=== PATIENT | male | born 1950 | race Hispanic/Latino ===

== ENCOUNTER → 2022-11-21 | Outpatient (CLI) | payer SELFPAY ==
[2022-11-21 17:51] LABS: Absolute Lymphocyte Count 2.26 X10^3/uL (0.83-4.51); Absolute Neutrophil Count 4.9 X10^3/uL (2.0-7.7); Basophil# 0.05 X10^3/uL; Basophil% 0.6 % (0-1); Eosinophil# 0.38 X10^3/uL; Eosinophils% 4.7 % (0-5); Hematocrit 39.5 % (40-54); Hemoglobin 13.1 g/dL (13.0-16.5); Lymphocyte # 2.26 X10^3/ul (0.83-4.51); Lymphocyte % 27.7 % (19-41); Mean Corp Hgb Conc 33.2 g/dL (32-36); Mean Corpuscular Hgb 27.9 pg (27.0-32.0); Mean Corpuscular Volume 84.2 fL (80-94); Monocyte# 0.52 X10^3/uL; Monocyte% 6.4 % (0-10); NRBC Flagged by Analyzer 0 % (0-5); Neutrophil # 4.92 X10^3/uL (2.7-7.7); Neutrophil % 60.1 % (47-70); Platelet Count 255 K/mm3 (150-450); RBC Distribution Width CV 12.6 % (11.6-14.6); RBC Distribution Width SD 38.3 fl (35.1-43.9); Red Blood Count 4.69 M/mm3 (4.6-6.2); White Blood Count 8.2 K/mm3 (4.4-11.0)
[2022-11-21 18:22] LABS: ALB/GLOB Ratio 0.8 RATIO (0.9-2.4); AST(SGOT) 20 U/L (15-37); Alanine Aminotransfer ALT/SGPT 40 U/L (16-61); Albumin, Serum 3.6 g/dL (3.2-5.0); Alkaline Phosphatase 136 U/L (45-117); Anion Gap 9 (5-15); BUN 76 mg/dL (7-18); BUN/Creat Ratio 13.1 RATIO (10-20); Calcium,Total 9.5 mg/dL (8.5-10.1); Chloride 104 mmol/L (98-107); Creatinine, Serum 5.81 mg/dL (0.70-1.30); EST Glomerular Filtration Rate 10 mL/min (>60); Est Glom Filt Rate - Afr Amer 13 mL/min (>60); Globulin 4.5 g/dL (2.2-4.2); Glucose 189 mg/dL (74-106); Potassium 4.8 mmol/L (3.5-5.1); Protein, Total 8.1 g/dL (6.4-8.2); Sodium Level 134 mmol/L (136-145); Thyroid Stim Hormone (TSH) 0.75 uIU/mL (0.358-3.74)
[2022-11-21 18:59] LABS: Hepatitis C Antibody Non-Reactive (Nonreactive); Vitamin D,25 Hydroxy 32.5 ng/mL
== END | disposition home or self-care (01) ==
LOC: POLAB3 15:44
PROVIDERS: Visit Provider Family Medicine Geriatric Medicine
DX: I12.9 Hypertensive chronic kidney disease with stage 1 through stage 4 chronic kidney disease, or unspecified chronic kidney disease (principal); E11.22 Type 2 diabetes mellitus with diabetic chronic kidney disease; E11.65 Type 2 diabetes mellitus with hyperglycemia; N18.9 Chronic kidney disease, unspecified
CPT/HCPCS: 36415; 80053; 82306; 84443; 85025; 86803

== ENCOUNTER → 2023-09-04 | Outpatient (CLI) | payer BC, SELFPAY ==
[2023-09-04 12:07] LABS: Basophil# 0.07 X10^3/uL; Basophil% 0.9 % (0-1); Eosinophil# 0.31 X10^3/uL; Eosinophils% 3.8 % (0-5); Hematocrit 35.2 % (40-54); Hemoglobin 11.7 g/dL (13.0-16.5); Lymphocyte % 25.8 % (19-41); Mean Corp Hgb Conc 33.2 g/dL (32-36); Mean Corpuscular Hgb 30.5 pg (27.0-32.0); Mean Corpuscular Volume 91.7 fL (80-94); Mean Platelet Vol. 8.9 fl (6.2-12.0); Monocyte# 0.67 X10^3/uL; Monocyte% 8.2 % (0-10); NRBC Flagged by Analyzer 0 % (0-5); Neutrophil # 4.95 X10^3/uL (2.7-7.7); Neutrophil % 60.9 % (47-70); Platelet Count 221 K/mm3 (150-450); RBC Distribution Width CV 11.7 % (11.6-14.6); RBC Distribution Width SD 39.2 fl (35.1-43.9); Red Blood Count 3.84 M/mm3 (4.6-6.2); White Blood Count 8.1 K/mm3 (4.4-11.0)
[2023-09-04 15:55] LABS: ALB/GLOB Ratio 0.9 RATIO (0.9-2.4); AST(SGOT) 17 U/L (15-37); Alanine Aminotransfer ALT/SGPT 25 U/L (16-61); Albumin, Serum 3.7 g/dL (3.2-5.0); Alkaline Phosphatase 80 U/L (45-117); Anion Gap 6 (5-15); BUN 49 mg/dL (7-18); BUN/Creat Ratio 4.5 RATIO (10-20); Chloride 100 mmol/L (98-107); EST Glomerular Filtration Rate 5 mL/min (>60); Est Glom Filt Rate - Afr Amer 6 mL/min (>60); Glucose 95 mg/dL (74-106); Potassium 4.4 mmol/L (3.5-5.1); Protein, Total 7.7 g/dL (6.4-8.2); Sodium Level 137 mmol/L (136-145); Thyroid Stim Hormone (TSH) 0.97 uIU/mL (0.358-3.74)
== END | disposition home or self-care (01) ==
LOC: POLAB3 11:28
PROVIDERS: PCP Family Medicine Geriatric Medicine; Visit Provider Family Medicine Geriatric Medicine
DX: I10 Essential (primary) hypertension (principal); E11.65 Type 2 diabetes mellitus with hyperglycemia; E55.9 Vitamin D deficiency, unspecified
CPT/HCPCS: 36415; 80053; 82306; 84443; 85025

== ENCOUNTER 2023-11-19 07:21 | Day surgery (SDC) | payer BC, SELFPAY ==
[2023-11-19] VITALS (7 sets, daily range): BP systolic 83–152; BP diastolic 49–60; PULSE 64–77; RESP 16; TEMP 36.2; O2SAT 96–99; BMI 22.1
--- NOTE | 2023-11-19 | COLBX_PTH ---
PATIENT: NOÉ PINO LOC: [facility] U#:[id number] AGE/SX: 73/M ROOM: RE11/19/[address]: Dr. Tobias Ryan MD : 1950 BED: DIS: 11/19/2023 SPEC #: [id number] RECD: 11/19/23 12:59 STATUS: JENNIFER MAZARIEGOSNena #: [id number] APOLINAR: 11/19/23 00:[address]: Tobias Ryan DEPT: SURGICAL PATHOLOGY RECD BY: Adam Walker ENTERED: 11/19/23 13:00 SP TYPE: COLON BX OTHR DR: Dr. Allen Jackson MD Tissues: A - Rectum, NOS B - Ascending colon C - Transverse colon D - Transverse colon E - Sigmoid colon biopsy F - Sigmoid colon biopsy Procedures: Surgery Specimen Level IV HEADER OPERATION: Colonoscopy with polypectomies and biopsy PRE-OP DIAGNOSIS: Positive colorectal cancer screening using Cologuard test TISSUE SUBMITTED: A- rectum polyp, B- Ascending colon polyp, C- Transverse colon polyp, D- Transverse colon polyp biopsy #2, E- Sigmoid colon polyp, F- Sigmoid colon polyp #2 MICROSCOPIC DIAGNOSIS A. Rectum polyp, biopsy: Tubular adenoma. B. Ascending colon polyp, biopsy: Fragments of hyperplastic polyp with cautery artifact. Fecal debris. C. Transverse colon polyp, biopsy: Tubular adenoma. D. Transverse colon polyp #2, biopsy: Benign mucosal polyp. See comment. E. Sigmoid colon polyp, biopsy: Tubular adenoma. F. Sigmoid colon polyp #2, biopsy: Tubular adenoma. AM/ 11/20/2023 COMMENT D. Neither hyperplastic nor adenomatous change is identified. Clinical correlation is suggested. MICROSCOPIC DESCRIPTION Slides are reviewed. GROSS DESCRIPTION A. Received in fixative is one container labeled with the patient's name and designated Rectal polyp. The specimen consists of a pink-red polyp measuring 1.0 x 0.8 x 0.5 cm. A few fragments of fecal material are also noted. The presumed base is inked. The polyp is bisected and submitted entirely in one cassette. B. Received in fixative is one container labeled with the patient's name and designated Ascending colon polyp. The specimen consists of multiple fragments mixed with fecal material of light stauffer soft tissue that in aggregate measure 1.0 x 0.4 x 0.1 cm. The specimen is totally submitted in one cassette. C. Received in fixative is one container labeled with the patient's name and designated Transverse colon polyp. The specimen consists of two irregular fragments of light stauffer soft tissue that in aggregate measure 0.4 x 0.3 x 0.1 cm. The specimen is totally submitted in one cassette. D. Received in fixative is one container labeled with the patient's name and designated Transverse colon polyp #2. The specimen consists of one irregular fragment of light stauffer soft tissue that measures 0.2 x 0.1 x 0.1 cm. The specimen is totally submitted in one cassette. E. Received in fixative is one container labeled with the patient's name and designated Sigmoid colon polyp. The specimen consists of a stauffer-pink polyp measuring 0.3 x 0.3 x 0.1cm. The entire specimen is submitted in one cassette. F. Received in fixative is one container labeled with the patient's name and designated Sigmoid colon polyp #2. The specimen consists of a stauffer-pink polyp measuring 0.5 x 0.5 x 0.2cm. The entire specimen is submitted in one cassette. Padmini 11/19/2023 TC:5 CPT:57053t6
--- NOTE | 2023-11-19 07:59 | PRE.ANES_ITS ---
ASA Classification* ASA Classification ASA Classification: 3 Assessment & Plan Anesthesia* Anesthesia Assessment Anesthesia Assessment: Discussed sedation and/or anesthesia options, risks, benefits, and alternatives with patient/parents/legal guardian/POA. Questions invited. The patient/parents/legal guardian/POA seems to understand and agrees to proceed with anesthesia plan. Reviewed the physical assessment, medical history, allergy history and patient home medications list prior to surgery/procedure/anesthetic and documented any changes. Performed airway and anesthesia risk assessments. Anesthesia Type Anesthesia Type: MAC (see written pre anesthesia record for full assessment ) Anesthesia Focused Assessment* Airway Assessment Mouth opens: >3 cm Mallampati Score: II Focused Labs Anesthesia Preop lab: CBC WBC 8.1 K/mm3 (4.4-11.0) 09/04/23 11:29 RBC 3.84 M/mm3 (4.6-6.2) L 09/04/23 11:29 Hgb 11.7 g/dL (13.0-16.5) L 09/04/23 11:29 Hct 35.2 % (40-54) L 09/04/23 11:29 Plt Count 221 K/mm3 (150-450) 09/04/23 11:29 CHEMISTRY Potassium 4.4 mmol/L (3.5-5.1) 09/04/23 11:29 Sodium 137 mmol/L (136-145) 09/04/23 11:29 BUN 49 mg/dL (7-18) H 09/04/23 11:29 Creatinine 11.00 mg/dL (0.70-1.30) H* 09/04/23 11:29 Glucose 95 mg/dL (74-106) 09/04/23 11:29 TSH 0.97 uIU/mL (0.358-3.74) 09/04/23 11:29 COAG Pre-Assessment Diagnosis/Proposed Procedure Planned Operative Procedure(s): CSCOPE Anesthesia History Anesthesia History - boiling house hand: Anesthesia History - boiling house hand Hx Hospitalization No 11/15/23 11:18 Any Problems With Anesthesia Yes: N,V 11/15/23 11:18 Cholinesterase deficiency No 11/15/23 11:18 You/Your Family Experience No 11/15/23 11:18 fever (hyperthermia) with Relationship Recent Exposure to Contagious Disease Does patient have nerve No 11/15/23 11:18 stimulator Patient instructed to have device shut off --Does patient have Pacemaker or ICD? When Was Last Pacemaker Check QUESTION #4 FULL TEXT: You/Your Family Experience fever (hyperthermia) with Anesthesia Last Oral Intake Last Oral intake: Last Oral Intake NPO since Meds taken in AM with sips of water? Meds patient instructed to take am of surgery PONV PONV - boiling house hand: PONV - boiling house hand Female No 11/15/23 11:18 HX of Motion Sickness No 11/15/23 11:18 HX of N/V After Surgery Yes 11/15/23 11:18 Non-Smoker Yes 11/15/23 11:18 Duration of Surgery greater No 11/15/23 11:18 than 60 minutes Number of Risk Factors 2 11/15/23 11:18 PONV Score Moderate Risk 11/15/23 11:18 Height & Weight Height & Weight: Anesthesia: Height & Weight Height 5 ft 5 in 10/04/23 09:48 Respiratory Assessment Respiratory Assessment - boiling house hand: Respiratory Tract Infection Hx - boiling house hand Hx Respiratory Tract Infection No 11/15/23 11:18 STOP Sleep Apnea STOP Sleep Apnea - boiling house hand: STOP Sleep Apnea - boiling house hand Hx Hypertension Yes: CONTROLLED WITH MED 11/15/23 11:18 Hx Sleep Apnea No 11/15/23 11:18 CPAP BIPAP Do you snore loudly (louder No 11/15/23 11:18 than talking or can be heard Do you often feel tired/ No 11/15/23 11:18 fatigued/ sleepy during daytime? Has anyone observed you stop No 11/15/23 11:18 breathing during sleep? STOP Results Negative 11/15/23 11:18 QUESTION #5 FULL TEXT : Do you snore loudly (louder than talking or can be heard through closed doors)? 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 Specify any problems Hx of Preganancy in last 3 N/A 11/15/23 11:18 Months Nurse Filling Out Transfusion DSCHRIBER 11/15/23 11:18 & Questions: Date: 11/15/23 11/15/23 11:18 Time: 11:20 11/15/23 11:18 Patient unable to answer at this time (ie. confused, unrespo /Reproduction History /Reproductive History - boiling house hand: /Reproductive Hx- boiling house hand Hx Now No 11/15/23 11:18 Gestational Age (in weeks): EDC: Hx Hx Para Hx Section SAB No 11/15/23 11:18 Active Medications Active Medications: Current Medications Generic Name Dose Route Start Last Admin Trade Name Freq PRN Reason Stop Dose Admin Lactated Ringer's 1,000 mls @ 15 mls/hr 11/19/23 07:45 IV .Q48H TYRESE PFSH Medical History Wears glasses Insulin dependent diabetes mellitus Anemia High cholesterol Dietary restriction Gastric reflux Non-smoker Hypertension History of peritoneal dialysis End stage chronic kidney disease Positive colorectal cancer screening using Cologuard test Home Medications ?Medication ?Instructions ?Recorded ?Last Taken ?Type atorvastatin 20 mg tablet 20 mg PO DAILY 10/04/23 Unknown History calcitriol 0.25 mcg capsule 0.25 mcg PO DAILY 10/04/23 Unknown History felodipine 10 mg tablet,extended 10 mg PO QDAY 10/04/23 Unknown History release 24 hr furosemide 40 mg tablet 40 mg PO DAILY 10/04/23 Unknown History insulin glargine 100 unit/mL (3 25 unit subcut QAM 10/04/23 Unknown History mL) subcutaneous pen (Lantus Solostar U-100 Insulin) pantoprazole 40 mg tablet,delayed 40 mg PO DAILY 10/04/23 Unknown History release sevelamer carbonate 800 mg tablet 1,600 mg PO TID 10/04/23 Unknown History vitamin B complex and vitamin C 1 cap PO DAILY 10/04/23 Unknown History no.20-folic acid 1 mg capsule (Triphrocaps) Allergy/AdvReac Type Severity Reaction Status Date / Time No Known Allergies Allergy Verified 11/19/23 07:58 Family History (Updated 10/04/23 @ 09:52 by Venessa Meza) Brother Diabetes Father Diabetes Surgical History History of cataract surgery Social History (Updated 10/04/23 @ 09:53 by Venessa Meza) Smoking Status: Never smoker alcohol intake: never substance use type: does not use Review of Systems (Anesthesia) ROS Narrative System reviewed and no additional complaints, except as documented.
[2023-11-19] MEDS: Lactated Ringers 1,000 ML 15 ML IV (08:06)
[2023-11-19] MEDS: 0.9% Normal Saline (500mL Bag) 500 ML 15 ML IV (08:11)
[2023-11-19 08:38] LABS: Bedside Glucose 109 mg/dL (74-106)
--- NOTE | 2023-11-19 09:45 | HP.PCM_ITS ---
History and Physical Date of Admission: 11/19/23 Date of Service: 10/04/23 MR#: [id number] Acct: [id number] Name: NOÉ HUGHES Rep #: [id number] : 1950 Provider: Dr. Tobias Ryan MD Age/Sex: 72/M Location: [facility] Status: Signed Intake Vital Signs 10/03/2408:48 Height 5 ft 5 in Weight: 139 lb 6 oz BMI 23.1 Body Surface Area 97.5 BP 109/66 Blood Pressure Location Rt brachial Position Sitting Respiration 18 Pulse 73 Pulse Source Monitor Temp 97.5 F L Temp Source Temporal Pulse Oximetry (%) 100 Oxygen Delivery Method room air Intake Visit Reasons: POSITIVE COLOGUARD Chief Complaint: Positive cologuard Private Client Advisor Required: No Accompanied by: Unknown Is patient in pain?: No Allergies No Known Allergies Allergy (Unverified 10/04/23 09:58) Medications ?Medication ?Instructions ?Recorded ?Confirmed ?Type atorvastatin 20 mg tablet 20 mg PO DAILY 10/04/23 10/04/23 History calcitriol 0.25 mcg capsule mcg PO 10/04/23 10/04/23 History felodipine 10 mg tablet,extended 10 mg PO QDAY 10/04/23 10/04/23 History release 24 hr furosemide 40 mg tablet 40 mg PO DAILY 10/04/23 10/04/23 History insulin glargine 100 unit/mL (3 25 unit subcut QAM 10/04/23 10/04/23 History mL) subcutaneous pen (Lantus Solostar U-100 Insulin) pantoprazole 40 mg tablet,delayed 40 mg PO DAILY 10/04/23 10/04/23 History release sevelamer carbonate 800 mg tablet 1,600 mg PO TID 10/04/23 10/04/23 History vitamin B complex and vitamin C 1 cap PO DAILY 10/04/23 10/04/23 History no.20-folic acid 1 mg capsule (Triphrocaps) [facility] Medical History (Updated 10/05/23 @ 10:[address] Tobias Ryan MD) History of peritoneal dialysis End stage chronic kidney disease Positive colorectal cancer screening using Cologuard test Surgical History (Updated 10/04/23 @ 09:52 by Venessa Meza) History of cataract surgery Family History (Updated 10/04/23 @ 09:52 by Venessa Meza) Brother DiabetesFather Diabetes Social History (Updated 10/04/23 @ 09:53 by Venessa Meza) Smoking Status: Never smoker alcohol intake: never substance use type: does not use HPI HPI HPI: Patient is a 72-year-old male, who is Turkish?speaking only from the [place] who presents for need to schedule diagnostic colonoscopy secondary to positive Cologuard testing. They are referred for surgical consultation from Dr. Jackson. Patient presents today with his son's longtime girlfriend who provides interpretive services. Angeline Hughes has not noticed any gross bleeding. Patient has not had prior colonoscopy. Patient has a personal history of constipation. They describe their bowel habits as beginning with rabbit pellets but transitioning to normal?appearing stools throughout the day. He shares that it is always like this. They have approximately 2 bowel movements per day without significant straining. They have not noticed dark stools, but do have a history of requiring iron pills for anemia. Patient reports that he did require a blood transfusion around the time of his peritoneal dialysis catheter insertion 2 years ago when he was still living in the [place]. They do not regularly take fiber supplements. Patient has a family history of colon cancer, inflammatory bowel disease, or diverticulitis. The patient's weight is stable. The patient is not prescribed anticoagulants/blood thinners. Relevant prior abdominal surgical history includes: Peritoneal dialysis catheter mentioned above Patient does not have a significant history of GERD/heartburn ROS General General: No weight change, appetite, fatigue, colon cancer, breast cancer or weakness HEENT HEENT: Yes eye surgery; No difficulty swallowing, eye injury, swollen glands or hoarseness Endo Endocrine: Yes diabetes mellitus; No thyroid disease, thyroid cancer, Hair loss, heat intolerance or cold intolerance Skin Skin: No rash or changing moles Breast Breast: No left breast lump, right breast lump, nipple discharge, breast pain, abnormal mammogram, abnormal US or breast enlargement Musc Musculoskeletal: No back problems, arthritis, rheumatoid arthritis, gout or joint pain Cardio Cardiovascular: No murmur, pacemaker, heart disease, atrial fibrillation, high blood pressure, heart attack, heart stent, palpitations, shortness of breat with exertion or chest pain Psych Psychiatric: No depression, anxiety or hearing voices Resp Respiratory: No shortness of breath, No sleep apnea, No cough, No COPD, No asthma, No emphysema and No wheezing Gastro Gastrointestinal: No abdominal pain, No nausea or vomiting, No diarrhea, No constipation, No blood in stool, No acid reflux, No hemorrhoids, No ulcers, No gallbladder problem and No black,tarry stools Raj Hematologic: No blood thinners, No blood disorders, No bleeding, No anemia and No blood clots Neuro Neurologic: No system reviewed and no additional complaints, except as documente d, No as per HPI, No abnormal gait, No abnormal hearing, No abnormal movements, No abnormal speech, No behavioral changes, No burning sensations, No confusion, No convulsions, No disequilibrium, No dizziness, No localized weakness, No frequent falls, No headache(s), No lack of coordination, No loss of vision, No memory loss, No numbness, No other visual disturbances, No radicular pain, No restless legs, No sensory deficit, No syncope, No tingling, No tremor(s), No weakness and No other Exam Const General: cooperative, healthy appearing and comfortable Resp Effort & Inspection: normal respiratory effort GI Other: Slender nondistended, left-sided peritoneal dialysis catheter appears appropriate without signs of infection. Patient nontender to palpation x 4 quadrants Assessment and Plan Assessment and Plan (1) Positive colorectal cancer screening using Cologuard test: Status: Acute Comment: Patient is a 72-year-old male who presents following positive Cologuard testing but without overt signs of gastrointestinal bleeding. Moreover, there is a history of iron deficiency anemia that has never been followed by endoscopic evaluation. Based on these features of patient's history and his reports of constipation, I find compelling reason to recommend diagnostic colonoscopy. Patient's son's girlfriend expresses concern about his risk for cancer and I have taken time to lay out the significance of his findings to date. For his part, patient does not appear in any distress and expresses comfort with the recommendation. 2-day bowel prep was described alongside other instructions for the procedure. Plan: Plan will be to complete colonoscopy on first mutually agreeable date under local MAC. Pre-procedure prep discussed and paper instructions provided. Ld streeter is also made aware that he will need to have a long haul truck driver with him the day of the procedure. I have examined the patient and the H&P has been reviewed. There are no clinical changes since date of exam. Patient's son's longtime girlfriend again accompanies him and provides interpretive services. Together they confirm that he has completed a prep and his output is now clear. They deny any interval GI issues or health?related issues more broadly. Patient's exam is benign. No further questions are offered so we will plan to proceed to endoscopy suite for diagnostic colonoscopy given recently positive Cologuard testing.
--- NOTE | 2023-11-19 10:27 | PCM.POST.ANE ---
Anesthesia: Postop Eval I Current Vital Signs Temperature: 97.1 F Pulse Rate: 67 Blood Pressure: 86/57 Respiratory Rate: 16 Pulse Ox: 96 Oxygen Delivery Method: Room Air Assessment Airway patent: Yes Spontaneous unlabored respirations: Yes Mental status: Asleep nausea: No Vomiting: No Anesthesia Complication: No Fluid Hydration Crystalloid volume administer (ml): 250 Total IV fluid infused: 250 Progress Note Anesthesia document: Postop Eval 1 completed: Yes
--- NOTE | 2023-11-19 10:27 | OP.CCLET_ITS ---
11/19/2023 Allen Jackson MD [address] [place] [address] Re : Colonoscopy procedure for Skip Herndon Dear Dr. Jackson This procedure was performed on Sunday, November 19, 2023. My impressions and recommendations are as follows: Impressions : - Five 5 to 12 mm polyps in the rectum, in the sigmoid colon, in the transverse colon and in the ascending colon, removed with a hot snare. Resected and retrieved. - One 3 mm polyp in the sigmoid colon. Biopsied. - Non-bleeding internal hemorrhoids. No specimens collected. - The examination was otherwise normal. Recommendations : - Discharge patient to home (via wheelchair). - Resume previous diet today. - No aspirin, ibuprofen, naproxen, or other non-steroidal anti-inflammatory drugs for 2 days after polyp removal. - Await pathology results. - Repeat colonoscopy date to be determined after pending pathology results are reviewed for surveillance based on pathology results. - Telephone my office for pathology results in 1 week. My findings are described in the full procedure note, which is enclosed. If I can be of further assistance, please feel free to contact me at Doctor phone number(s): , Work: . Sincerely, Tobias Ryan MD 11/19/2023 10:27:07 AM This report has been signed electronically.
--- NOTE | 2023-11-19 10:27 | OP.COLON_ITS ---
Patient Name: Skip Herndon Procedure Date: 11/19/2023 9:43 AM Date of : 1950 Age: 73 Procedure: Colonoscopy Indications: Positive Cologuard test Providers: Tobias Ryan MD Referring MD: Allen Jackson MD Medicines: See the Anesthesia note for documentation of the administered medications Patient Profile: Last Colonoscopy: none. The patient's first colonoscopy is today. Complications: No immediate complications. Estimated blood loss: Minimal. Procedure: Pre-Anesthesia Assessment: - The heart rate, respiratory rate, oxygen saturations, blood pressure, adequacy of pulmonary ventilation, and response to care were monitored throughout the procedure. After I obtained informed consent, the scope was passed under direct vision. Throughout the procedure, the patient's blood pressure, pulse, and oxygen saturations were monitored continuously. The Colonoscope was introduced through the anus and advanced to the cecum, identified by the appendiceal orifice, ileocecal valve and palpation. The colonoscopy was performed without difficulty. The patient tolerated the procedure well. The quality of the bowel preparation was good. Scope In: 9:54:25 AM Scope Withdrawal Time 0 hours 14 minutes 52 seconds Scope Out: 10:18:04 AM Total Procedure Duration Time 0 hours 23 minutes 39 seconds Findings: Enlarged prostate, Estimated blood loss: none. Five semi-pedunculated polyps were found in the rectum, sigmoid colon, transverse colon and ascending colon. The polyps were 5 to 12 mm in size. These polyps were removed with a hot snare. Resection and retrieval were complete. Estimated blood loss was minimal. A 3 mm polyp was found in the sigmoid colon. The polyp was sessile. Biopsies were taken with a cold forceps for histology. Estimated blood loss was minimal. Non-bleeding internal hemorrhoids were found during retroflexion. The hemorrhoids were mild, medium-sized and Grade I (internal hemorrhoids that do not prolapse). No biopsies or other specimens were collected for this exam. The exam was otherwise without abnormality. Impression: - Five 5 to 12 mm polyps in the rectum, in the sigmoid colon, in the transverse colon and in the ascending colon, removed with a hot snare. Resected and retrieved. - One 3 mm polyp in the sigmoid colon. Biopsied. - Non-bleeding internal hemorrhoids. No specimens collected. - The examination was otherwise normal. Recommendation: - Discharge patient to home (via wheelchair). - Resume previous diet today. - No aspirin, ibuprofen, naproxen, or other non-steroidal anti-inflammatory drugs for 2 days after polyp removal. - Await pathology results. - Repeat colonoscopy date to be determined after pending pathology results are reviewed for surveillance based on pathology results. - Telephone my office for pathology results in 1 week. Procedure Code(s): --- Professional --- 72872, Colonoscopy, flexible; with removal of tumor(s), polyp(s), or other lesion(s) by snare technique 49434, 59, Colonoscopy, flexible; with biopsy, single or multiple Diagnosis Code(s): --- Professional --- D12.8, Benign neoplasm of rectum D12.5, Benign neoplasm of sigmoid colon D12.3, Benign neoplasm of transverse colon (hepatic flexure or splenic flexure) D12.2, Benign neoplasm of ascending colon K64.0, First degree hemorrhoids R19.5, Other fecal abnormalities CPT copyright 2021 [employer]. All rights reserved. The codes documented in this report are preliminary and upon senior software quality analyst review may be revised to meet current compliance requirements. Tobias Ryan MD 11/19/2023 10:27:07 AM This report has been signed electronically. Number of Addenda: 0 Note Initiated On: 11/19/2023 9:43 AM
--- NOTE | 2023-11-19 11:01 | SUR.PHASEII ---
patient is Upper Sorbian speaking, family at bedside to translate. all questions answered. patient vss. denies pain or nausea.
--- NOTE | 2023-11-19 16:52 | PCM.POSTANE2 ---
Anesthesia Postop Eval I Sum Postop Eval Completion status Anesthesia document: Postop Eval 1 completed: Yes Anesthesia Postop Eval I Summary Anesthesia Postop Eval I Summary: Anesthesia Postop Eval I: Assessment Summary Airway patent Yes 11/19/23 10:30 [email or web address] Spontaneous unlabored Yes 11/19/23 10:30 [email or web address] respirations Mental status Asleep 11/19/23 10:30 [email or web address] nausea No 11/19/23 10:30 [email or web address] Vomiting No 11/19/23 10:30 [email or web address] Anesthesia Postop Eval I: Fluid Summary Crystalloid volume administer 250 11/19/23 10:30 [email or web address] (ml) Colloids volume administered ( ml) Blood Product volume administered (ml) Total IV fluid infused 250 11/19/23 10:30 [email or web address] Anesthesia Postop Eval I: Summary Notes Anesthesia Complication No 11/19/23 10:30 [email or web address] Anesthesia Complication Comment: Post-operative progress note Anesthesia: Postop Eval II Evaluation Mental status: Awake and Calm Pain Level: 0 nausea: No Vomiting: No Complications Anesthesia Complication: No
== END 2023-11-19 11:07 | disposition home or self-care (01) ==
LOC: EN 07:33 → AC 07:35
PROVIDERS: PCP Family Medicine Geriatric Medicine; Referring Provider Family Medicine Geriatric Medicine; Visit Provider Surgery
PROC: 0DJD8ZZ Inspection of Lower Intestinal Tract, Via Natural or Artificial Opening Endoscopic (ICD-10-PCS; CPT 45378; principal; 2023-11-19 09:10)
DX: Z12.11 Encounter for screening for malignant neoplasm of colon (principal); N18.6 End stage renal disease; I12.0 Hypertensive chronic kidney disease with stage 5 chronic kidney disease or end stage renal disease; Z79.4 Long term (current) use of insulin; D12.8 Benign neoplasm of rectum; D12.3 Benign neoplasm of transverse colon; D12.5 Benign neoplasm of sigmoid colon; K64.0 First degree hemorrhoids; K21.9 Gastro-esophageal reflux disease without esophagitis; E78.00 Pure hypercholesterolemia, unspecified; N40.0 Benign prostatic hyperplasia without lower urinary tract symptoms; Z79.899 Other long term (current) drug therapy
CPT/HCPCS: 45385; 45380; 82962; 88305; J7040; J7120; J2405

== ENCOUNTER → 2023-12-25 | Outpatient (CLI) | payer BC, SELFPAY ==
[2023-12-25 17:34] LABS: Absolute Lymphocyte Count 1.89 X10^3/uL (0.83-4.51); Absolute Neutrophil Count 5.4 X10^3/uL (2.0-7.7); Basophil# 0.06 X10^3/uL; Basophil% 0.7 % (0-1); Eosinophil# 0.28 X10^3/uL; Eosinophils% 3.3 % (0-5); Hematocrit 36.7 % (40-54); Hemoglobin 12.3 g/dL (13.0-16.5); Lymphocyte # 1.89 X10^3/ul (0.83-4.51); Lymphocyte % 22.6 % (19-41); Mean Corp Hgb Conc 33.5 g/dL (32-36); Mean Corpuscular Hgb 30.2 pg (27.0-32.0); Mean Corpuscular Volume 90.2 fL (80-94); Mean Platelet Vol. 9.2 fl (6.2-12.0); Monocyte# 0.65 X10^3/uL; Monocyte% 7.8 % (0-10); NRBC Flagged by Analyzer 0 % (0-5); Neutrophil # 5.44 X10^3/uL (2.7-7.7); Neutrophil % 65.1 % (47-70); Platelet Count 257 K/mm3 (150-450); RBC Distribution Width CV 11.9 % (11.6-14.6); RBC Distribution Width SD 38.6 fl (35.1-43.9); Red Blood Count 4.07 M/mm3 (4.6-6.2); White Blood Count 8.4 K/mm3 (4.4-11.0)
[2023-12-25 17:48] LABS: Hemoglobin A1c 6.4 % (3.8-5.6)
[2023-12-25 18:04] LABS: Vitamin D,25 Hydroxy 25.1 ng/mL
[2023-12-25 18:05] LABS: Thyroid Stim Hormone (TSH) 1.12 uIU/mL (0.358-3.74)
== END | disposition home or self-care (01) ==
LOC: LAB 16:46
PROVIDERS: PCP Family Medicine Geriatric Medicine; Referring Provider Family Medicine Geriatric Medicine; Visit Provider Family Medicine Geriatric Medicine
DX: E11.65 Type 2 diabetes mellitus with hyperglycemia (principal); E55.9 Vitamin D deficiency, unspecified; I10 Essential (primary) hypertension
CPT/HCPCS: 36415; 82306; 83036; 84443; 85025

== ENCOUNTER 2024-01-17 11:12 | Emergency (ER) | payer BC, SELFPAY ==
[2024-01-17] VITALS (7 sets, daily range): BP systolic 84–160; BP diastolic 56–76; PULSE 35–52; RESP 12–19; TEMP 36.2–36.4; O2SAT 93–99; BMI 22.1
--- NOTE | 2024-01-17 11:33 | EKG12_ITS ---
Test Reason : HYPOTENSION Blood Pressure : / mmHG Vent. Rate : 036 BPM Atrial Rate : 000 BPM P-R Int : 000 ms QRS Dur : 104 ms QT Int : 404 ms P-R-T Axes : 000 -13 013 degrees QTc Int : 312 ms Critical Test Result: Low HR Junctional bradycardia Abnormal ECG Confirmed by COOPER ECHEVERRIA ([id number]), photography editor SANG MOORE ([id number]) on 01/21/2024 8:27:34 AM Referred By: Confirmed By:COOPER ECHEVERRIA
[2024-01-17 11:42] LABS: Absolute Lymphocyte Count 2.69 X10^3/uL (0.83-4.51); Absolute Neutrophil Count 5.1 X10^3/uL (2.0-7.7); Basophil# 0.09 X10^3/uL; Eosinophil# 0.37 X10^3/uL; Eosinophils% 4.1 % (0-5); Hematocrit 37.3 % (40-54); Hemoglobin 12.3 g/dL (13.0-16.5); Lymphocyte # 2.69 X10^3/ul (0.83-4.51); Mean Corpuscular Hgb 29.9 pg (27.0-32.0); Mean Corpuscular Volume 90.8 fL (80-94); Mean Platelet Vol. 9.6 fl (6.2-12.0); Monocyte% 7.8 % (0-10); NRBC Flagged by Analyzer 0 % (0-5); Neutrophil # 5.08 X10^3/uL (2.7-7.7); Neutrophil % 56.7 % (47-70); Platelet Count 292 K/mm3 (150-450); RBC Distribution Width CV 11.8 % (11.6-14.6); RBC Distribution Width SD 38.9 fl (35.1-43.9); Red Blood Count 4.11 M/mm3 (4.6-6.2)
--- NOTE | 2024-01-17 11:43 | RAD_ITS ---
STUDY: X-RAY CHEST REASON FOR EXAM: Male, 73 years old. Bradycardia, near syncope TECHNIQUE: Single AP portable view of the chest. COMPARISON: None. FINDINGS: EKG electrodes are seen. The lungs are clear and expanded. There is no demonstrated pleural abnormality. Normal size heart. Normal mediastinum and aleks. Normal visualized pulmonary arteries. There is atherosclerotic calcification of the aortic arch with tortuosity. Normal visualized thoracic spine. Normal visualized ribs, clavicles, and shoulders. There is no demonstrated abnormality of the visualized soft tissue structures of the upper abdomen. RAD/Chest 1 View (Portable) IMPRESSION: No acute abnormality is seen. Electronically Signed: Royce Banuelos MD at 11:53 EDT ,
--- NOTE | 2024-01-17 12:01 | EX.ED.DYSGE1 ---
HPI History of Present Illness Chief Complaint: Hypotension Informant: patient Narrative Narrative: Patient is a 73-year-old male with history of end-stage renal disease on peritoneal dialysis at home (is compliance per family and lasted it last night). His party plan sales director is Dr. Coronel and his PCP is Dr. Jackson. He is presenting for weakness and low blood pressure. Patient was not feeling well and family checked his blood pressure at [facility] (family member was working as a services delivery driver there) and it was low. She does not recall the reading. He almost passed out and they are walking back to the car. He came in for further evaluation. Patient [place] any chest pain, fever, chills, shortness of breath or any other complaints at this time. No abdominal pain reported. Patient is Scottish-speaking. Daughter at the bedside to translate. [facility] Medical History Wears glasses Insulin dependent diabetes mellitus Anemia High cholesterol Dietary restriction Gastric reflux Non-smoker Hypertension History of peritoneal dialysis End stage chronic kidney disease Positive colorectal cancer screening using Cologuard test Home Medications ?Medication ?Instructions ?Recorded ?Last Taken ?Type atorvastatin 20 mg tablet 20 mg PO DAILY 10/04/23 11/18/23 History calcitriol 0.25 mcg capsule 0.25 mcg PO DAILY 10/04/23 11/18/23 History felodipine 10 mg tablet,extended 10 mg PO QDAY 10/04/23 11/18/23 History release 24 hr furosemide 40 mg tablet 40 mg PO DAILY 10/04/23 11/18/23 History insulin glargine 100 unit/mL (3 25 unit subcut QAM 10/04/23 11/18/23 History mL) subcutaneous pen (Lantus Solostar U-100 Insulin) pantoprazole 40 mg tablet,delayed 40 mg PO DAILY 10/04/23 11/19/23 History release sevelamer carbonate 800 mg tablet 1,600 mg PO TID 10/04/23 11/18/23 History vitamin B complex and vitamin C 1 cap PO DAILY 10/04/23 11/18/23 History no.20-folic acid 1 mg capsule (Triphrocaps) Allergy/AdvReac Type Severity Reaction Status Date / Time No Known Allergies Allergy Verified 01/17/24 11:14 Family History Brother Diabetes Father Diabetes Surgical History History of cataract surgery Social History Smoking Status: Never smoker alcohol intake: never substance use type: does not use ROS ROS ED Constitutional Constitutional ED: Reports other Details: Lightheaded ; Denies chills or fever(s) Cardiovascular Cardiovascular: Denies chest pain Respiratory/Chest Respiratory/Chest: Denies cough or dyspnea Gastrointestinal Gastrointestinal: Denies abdominal pain, nausea or vomiting Musculoskeletal Musculoskeletal: Denies arthralgias, back pain or myalgias Hematologic/Lymphatic Hematologic/Lymphatic: Denies easy bleeding or easy bruising EXAM Physical Exam Const Vital Signs: 01/17/24 11:12 01/17/24 11:12 01/17/24 12:12 Temperature 97.5 F L Temperature Source Temporal Pulse Rate 35 L 43 L Respiratory Rate 16 13 Respiratory Effort Normal Non-Labored Respiratory Pattern Normal Blood Pressure 84/56 L 102/59 L Blood Pressure Mean 65 73 Pulse Ox 99 96 Oxygen Delivery Method Room Air Room Air 01/17/24 13:00 01/17/24 14:05 Temperature Temperature Source Pulse Rate 49 L 52 L Respiratory Rate 13 12 Respiratory Effort Respiratory Pattern Blood Pressure 129/65 H 149/73 H Blood Pressure Mean 86 98 Pulse Ox 96 97 Oxygen Delivery Method Room Air Positive well nourished and well developed General Appearance ED: well developed and NAD HEENT Reports moist mucous membranes Eyes PERRL Neck supple and no JVD Chest Wall inspection of chest normal Resp normal respiratory effort and clear to auscultation bilaterally Cardio regular rhythm and no murmurs Rate: bradycardia GI normal to inspection, nondistended, normoactive bowel sounds and non-tender GI Narrative: Peritoneal dialysis catheter in place Extremity normal to inspection General Extremety ED: Negative for edema General Extremity: Negative for edema Neuro oriented x3 Sensorium / Orientation: alert Motor Exam: general weakness Psych mental status grossly normal Skin no rashes or lesions noted and no wounds MDM MDM MDM Narrative Medical decision making narrative: Patient is evaluated for lightheadedness. Upon arrival patient is noted to be hypotensive and bradycardic. He denies associated chest pain. Does not have any infectious symptoms. Does not appear particularly volume depleted. Is mentating at this time but is generally weak appearing. EKG obtained shows junctional bradycardia at a rate of 36 beats per minutes No acute ischemic changes are noted. Differential includes pathologic bradycardia, hyperkalemia, medication reaction (less likely as patient is not on any rate control medication), electrolyte abnormality, infection. Patient is given 250 cc fluid bolus. He is empirically given calcium gluconate in case this is hyperkalemia causing of the junctional rhythm and is also given 0.5 mg of IV atropine. Patient has improvement of blood pressure with IV fluids and a heart rate does temporarily improve with atropine. Pacer pads are in place In case patient suddenly decompensates. Workup is largely negative. Case is reviewed with her process expert, Dr. Cooper. He reviewed the patient's EKG as well. He feels that patient likely will require a pacemaker and we do not have the capabilities at the moment. Family is agreeable. Spoke with [facility] Initially who does not have any bed availability. I then spoke with [facility]. Spoke with interventional tin can laborer, Dr. Rolando Suresh, who is agreeable with admission and accepts the patient. Request patient go ER to ER. ER report is given. Patient be transferred for further cardiac/electrophysiology evaluation. At this time patient is hemodynamically stable and does not require emergent transvenous pacing. Lab Data Attestation: I reviewed the patient's lab results. Labs: Laboratory Results - last 24 hr 01/17/24 11:30 WBC 9.0 RBC 4.11 L Hgb 12.3 L Hct 37.3 L MCV 90.8 MCH 29.9 MCHC 33.0 RDW Std Deviation 38.9 RDW Coeff of Brittney 11.8 Plt Count 292 MPV 9.6 Immature Gran % (Auto) 0.400 Neut % (Auto) 56.7 Lymph % (Auto) 30.0 Vernon % (Auto) 7.8 Eos % (Auto) 4.1 Baso % (Auto) 1.0 Absolute Neuts (auto) 5.1 Absolute Lymphs (auto) 2.69 Nucleated RBC % 0 Sodium 135 L Potassium 4.8 Chloride 100 Carbon Dioxide 25.0 BUN 64 H Creatinine 12.00 H* Estim Creat Clear Calc 5.12 Est GFR (MDRD) Af Amer 5 L Est GFR (MDRD) Non-Af 4 L BUN/Creatinine Ratio 5.3 L Glucose 163 H Calcium 10.8 H Phosphorus 5.5 H Troponin I High Sens 40 Albumin 3.6 Radiography Diagnostic Testing: Clinical Impression(s) from Imaging Studies Chest X-Ray 01/17/24 11:43 IMPRESSION: No acute abnormality is seen. Electronically Signed: Ryoce Banuelos MD at 11:53 EDT , Rhythm Strip Rhythm Strip: Bradycardia Rate: 36 Ectopy: None EKG Initial EKG: Attestation: I personally reviewed and interpreted this EKG as follows: Interpretation: Junctional Comments: Junctional bradycardia at a rate of [address] segments QRS 104 QTc 312 No prior EKG available for comparison Follow-up EKG: Attestation: I personally reviewed and interpreted this EKG as follows: Comments: Junctional rhythm with retrograde conduction rate of 49 bpm Left axis deviation Normal ST segments Sinus rate slightly improved compared to prior ECG Critical Care Time Critical Care Time: Yes Critical care time (excluding procedures): 30-74 minutes (45), Discussing w/Patient &/or Family/Sales Recruiting Coordinator, Discussing w/Consultants and Arranging Admission or Transfer Discharge Plan Triage Chief Complaint: Hypotension ED Provider: Jolie Camacho Dx/Rx/DC Orders Clinical Impression: Symptomatic bradycardia, Acute hypotension, End stage renal disease Prescriptions: No Action sevelamer carbonate 800 mg tablet 1,600 mg PO TID Rx Instructions: must administer with a meal/food furosemide 40 mg tablet 40 mg PO DAILY atorvastatin 20 mg tablet 20 mg PO DAILY pantoprazole 40 mg tablet,delayed release (DR/EC) 40 mg PO DAILY Triphrocaps 1 mg capsule 1 cap PO DAILY felodipine 10 mg tablet extended release 24 hr 10 mg PO QDAY calcitriol 0.25 mcg capsule 0.25 mcg PO DAILY insulin glargine [Lantus Solostar U-100 Insulin] 100 unit/mL (3 mL) insulin pen 25 unit subcut QAM Primary Care Provider: Allen Jackson Chi Referrals: Allen Jackson Chi, MD [Primary Care Provider] - Print Language: Scottish
[2024-01-17] MEDS: 0.9% Normal Saline (500mL Bag) 250 ML 999 ML IV (12:05)
[2024-01-17] MEDS: Calcium Gluconate IV 3 GM in Syringe 1 EACH IV (12:05)
[2024-01-17 12:08] LABS: Albumin, Serum 3.6 g/dL (3.2-5.0); BUN 64 mg/dL (7-18); BUN/Creat Ratio 5.3 RATIO (10-20); Calcium,Total 10.8 mg/dL (8.5-10.1); Chloride 100 mmol/L (98-107); EST Glomerular Filtration Rate 4 mL/min (>60); Est Glom Filt Rate - Afr Amer 5 mL/min (>60); Estimated Creatinine Clearance 5.12 ml/min; Glucose 163 mg/dL (74-106); Phosphorus 5.5 mg/dL (2.5-4.9); Potassium 4.8 mmol/L (3.5-5.1); Sodium Level 135 mmol/L (136-145); Troponin-I HS (w/2H Reflex) 40 pg/mL (3.0-78.0)
[2024-01-17] MEDS: Atropine Sulfate 1 MG/10 ML Syringe 0.5 MG IV (12:27)
--- NOTE | 2024-01-17 12:47 | ED.RN ---
ATTEMPTED TO TRANSFER PT TO [facility] BUT THEY STATE IT WILL BE SEVERAL DAYS BEFORE THEY COULD HAVE A BED
--- NOTE | 2024-01-17 12:53 | EKG12_ITS ---
Test Reason : REPEAT Blood Pressure : / mmHG Vent. Rate : 049 BPM Atrial Rate : 000 BPM P-R Int : 000 ms QRS Dur : 102 ms QT Int : 378 ms P-R-T Axes : 000 -19 009 degrees QTc Int : 341 ms Junctional rhythm with retrograde conduction Abnormal ECG Confirmed by COOPER ECHEVERRIA ([id number]), film editor SANG MOORE ([id number]) on 01/21/2024 8:27:45 AM Referred By: Confirmed By:COOPER ECHEVERRIA
[2024-01-17 13:38] LABS: Reflex Troponin-HS? (from REC) Y
[2024-01-17 14:35] LABS: Troponin-I HS 38 pg/mL (3.0-78.0)
--- NOTE | 2024-01-17 15:50 | ED.RN ---
per verbal order from Dr. Camacho, ok to let pt get up to use bedside commode. pt tolerated well. heart rate stayed stable in the low 50s
== END 2024-01-17 16:05 | disposition short-term general hospital (02) ==
LOC: ED 12:06
PROVIDERS: Emergency Provider Emergency Medicine; PCP Family Medicine Geriatric Medicine; Visit Provider Emergency Medicine
DX: R00.1 Bradycardia, unspecified (principal); N18.6 End stage renal disease; E11.22 Type 2 diabetes mellitus with diabetic chronic kidney disease; I95.9 Hypotension, unspecified
CPT/HCPCS: 71045; 80069; 84484; 85025; 93005; 96365; 99284; J7030; A4216; J0612

== ENCOUNTER → 2024-06-24 | Outpatient (CLI) | payer BC, SELFPAY ==
[2024-06-24 15:24] LABS: Absolute Lymphocyte Count 1.59 X10^3/uL (0.83-4.51); Absolute Neutrophil Count 6.8 X10^3/uL (2.0-7.7); Basophil# 0.07 X10^3/uL; Basophil% 0.8 % (0-1); Eosinophils% 2.2 % (0-5); Hematocrit 33.1 % (40-54); Hemoglobin 10.7 g/dL (13.0-16.5); Lymphocyte # 1.59 X10^3/ul (0.83-4.51); Lymphocyte % 17.1 % (19-41); Mean Corp Hgb Conc 32.3 g/dL (32-36); Mean Corpuscular Hgb 30.4 pg (27.0-32.0); Mean Platelet Vol. 9.7 fl (6.2-12.0); Monocyte# 0.56 X10^3/uL; NRBC Flagged by Analyzer 0 % (0-5); Neutrophil # 6.75 X10^3/uL (2.7-7.7); Neutrophil % 72.6 % (47-70); Platelet Count 259 K/mm3 (150-450); RBC Distribution Width SD 41.1 fl (35.1-43.9); Red Blood Count 3.52 M/mm3 (4.6-6.2); White Blood Count 9.3 K/mm3 (4.4-11.0)
[2024-06-24 16:09] LABS: ALB/GLOB Ratio 0.9 RATIO (0.9-2.4); AST(SGOT) 18 U/L (15-37); Alanine Aminotransfer ALT/SGPT 31 U/L (16-61); Albumin, Serum 3.6 g/dL (3.2-5.0); Alkaline Phosphatase 53 U/L (45-117); Anion Gap 10 (5-15); BUN 68 mg/dL (7-18); BUN/Creat Ratio 5.8 RATIO (10-20); Calcium,Total 9.3 mg/dL (8.5-10.1); Chloride 101 mmol/L (98-107); EST Glomerular Filtration Rate 5 mL/min (>60); Est Glom Filt Rate - Afr Amer 6 mL/min (>60); Globulin 3.9 g/dL (2.2-4.2); Glucose 178 mg/dL (74-106); Protein, Total 7.5 g/dL (6.4-8.2); Sodium Level 134 mmol/L (136-145)
== END | disposition home or self-care (01) ==
LOC: POLAB3 15:10
PROVIDERS: PCP Family Medicine Geriatric Medicine; Visit Provider Family Medicine Geriatric Medicine
DX: E11.65 Type 2 diabetes mellitus with hyperglycemia (principal); I10 Essential (primary) hypertension; E55.9 Vitamin D deficiency, unspecified
CPT/HCPCS: 36415; 80053; 82306; 84443; 85025

== ENCOUNTER → 2024-08-14 | Outpatient (CLI) | payer BC, SELFPAY ==
[2024-08-14 11:34] LABS: Absolute Lymphocyte Count 1.39 X10^3/uL (0.83-4.51); Absolute Neutrophil Count 4.6 X10^3/uL (2.0-7.7); Basophil# 0.08 X10^3/uL; Basophil% 1.2 % (0-1); Eosinophil# 0.22 X10^3/uL; Eosinophils% 3.3 % (0-5); Hematocrit 33.2 % (40-54); Hemoglobin 10.8 g/dL (13.0-16.5); Lymphocyte # 1.39 X10^3/ul (0.83-4.51); Lymphocyte % 20.6 % (19-41); Mean Corp Hgb Conc 32.5 g/dL (32-36); Mean Corpuscular Hgb 31.1 pg (27.0-32.0); Mean Corpuscular Volume 95.7 fL (80-94); Mean Platelet Vol. 9.1 fl (6.2-12.0); Monocyte# 0.46 X10^3/uL; Monocyte% 6.8 % (0-10); NRBC Flagged by Analyzer 0 % (0-5); Neutrophil # 4.57 X10^3/uL (2.7-7.7); Neutrophil % 67.5 % (47-70); Platelet Count 314 K/mm3 (150-450); RBC Distribution Width CV 13.2 % (11.6-14.6); RBC Distribution Width SD 46.3 fl (35.1-43.9); Red Blood Count 3.47 M/mm3 (4.6-6.2); White Blood Count 6.8 K/mm3 (4.4-11.0)
[2024-08-14 11:42] LABS: International Normalized Ratio 1.1; Prothrombin Time (Protime)PT. 14.5 SECONDS (11.7-14.9)
[2024-08-14 14:02] LABS: ALB/GLOB Ratio 1.3 RATIO (0.9-2.4); AST(SGOT) 23 U/L (<=37); Alanine Aminotransfer ALT/SGPT 19 U/L (<=46); Albumin, Serum 4.1 g/dL (3.4-4.8); Alkaline Phosphatase 43 U/L (40-129); Anion Gap 16 (5-15); BUN 48 mg/dL (4-19); Calcium,Total 9.9 mg/dL (7.6-11.0); Carbon Dioxide 22.2 mmol/L (21.0-32.0); Chloride 98 mmol/L (98-108); EST Glomerular Filtration Rate 5 (>60); Globulin 3.2 g/dL (2.2-4.2); Glucose 121 mg/dL (70-99); Protein, Total 7.3 g/dL (5.9-8.4); Sodium Level 137 mmol/L (133-145); Total Bilirubin 0.33 mg/dL (0.00-1.30)
[2024-08-14 14:03] LABS: BUN/Creat Ratio 4.7 RATIO (10-20)
== END | disposition home or self-care (01) ==
LOC: LAB 11:05
PROVIDERS: PCP Family Medicine Geriatric Medicine; Referring Provider Family Medicine Geriatric Medicine; Visit Provider Family Medicine Geriatric Medicine
DX: Z01.818 Encounter for other preprocedural examination (principal); I10 Essential (primary) hypertension
CPT/HCPCS: 36415; 80053; 85025; 85610

== ENCOUNTER → 2024-09-17 | Outpatient (CLI) | payer BC, SELFPAY ==
--- NOTE | 2024-09-17 07:10 | RAD_ITS ---
PROCEDURE: CHEST PA AND LATERAL 09/17/2024 REASON FOR EXAM: PRE-PROCEDURE DIAGNOSTIC TECHNIQUE: Frontal and lateral views of the chest. COMPARISON: January 17, 2024 FINDINGS: There is a left-sided cardiac device with wires in position, new compared to the prior. Heart size and mediastinal configuration are within normal limits. There is no focal infiltrate or consolidation. There is no pneumothorax or effusion. Lung volumes are mildly increased. Aortic calcifications are noted. There is no visible acute bony abnormality. RAD/Chest PA and Lateral IMPRESSION: No acute process is identified in the chest. Reading Location: [facility]
[2024-09-17 08:00] LABS: Absolute Lymphocyte Count 2.01 X10^3/uL (0.83-4.51); Absolute Neutrophil Count 3.8 X10^3/uL (2.0-7.7); Basophil# 0.06 X10^3/uL; Basophil% 0.9 % (0-1); Eosinophil# 0.27 X10^3/uL; Eosinophils% 3.9 % (0-5); Hematocrit 33.3 % (40-54); Lymphocyte # 2.01 X10^3/ul (0.83-4.51); Mean Corpuscular Hgb 31.1 pg (27.0-32.0); Mean Corpuscular Volume 94.1 fL (80-94); Monocyte# 0.71 X10^3/uL; Monocyte% 10.3 % (0-10); NRBC Flagged by Analyzer 0 % (0-5); Neutrophil # 3.82 X10^3/uL (2.7-7.7); Neutrophil % 55.2 % (47-70); Platelet Count 236 K/mm3 (150-450); RBC Distribution Width CV 12.5 % (11.6-14.6); RBC Distribution Width SD 43.5 fl (35.1-43.9); Red Blood Count 3.54 M/mm3 (4.6-6.2); White Blood Count 6.9 K/mm3 (4.4-11.0)
[2024-09-17 08:50] LABS: Cholesterol 168 mg/dL (<=200); High Density Lipoprotein 39 mg/dL; Low Density Lipoprotein Calc. 75 mg/dL; Triglycerides 270 mg/dL; Very Low Density Lipoprotein 54 mg/dL (5-40); cholesterol:hdl ratio screen 4.29
[2024-09-17 08:55] LABS: International Normalized Ratio 1.1; Prothrombin Time (Protime)PT. 13.9 SECONDS (11.7-14.9)
[2024-09-17 09:25] LABS: Anion Gap 14 (5-15); BUN 50 mg/dL (4-19); BUN/Creat Ratio 5.2 RATIO (10-20); Calcium,Total 10.5 mg/dL (7.6-11.0); Carbon Dioxide 25.9 mmol/L (21.0-32.0); Chloride 96 mmol/L (98-108); Creatinine, Serum 9.44 mg/dL (0.70-1.20); EST Glomerular Filtration Rate 5 (>60); Glucose 103 mg/dL (70-99); Potassium 4.1 mmol/L (3.3-5.1); Sodium Level 136 mmol/L (133-145)
== END | disposition home or self-care (01) ==
PROVIDERS: PCP Family Medicine Geriatric Medicine; Referring Provider Internal Medicine Cardiovascular Disease; Visit Provider Internal Medicine Cardiovascular Disease
DX: R94.39 Abnormal result of other cardiovascular function study (principal); E11.9 Type 2 diabetes mellitus without complications; I10 Essential (primary) hypertension; E78.5 Hyperlipidemia, unspecified
CPT/HCPCS: 36415; 71046; 80048; 80061; 85025; 85610

== ENCOUNTER 2024-09-22 13:33 | Observation (INO) | payer BC, SELFPAY ==
[2024-09-21 08:57] VITALS: BMI 24.1
[2024-09-22] VITALS (13 sets, daily range): BP systolic 117–170; BP diastolic 64–81; PULSE 61–78; RESP 14–18; TEMP 36.4–36.6; O2SAT 97–100; BMI 24.1
[2024-09-22 13:20] LABS: ACT Activated Clotting Time 251 sec (74-137)
[2024-09-22 13:20] LABS: ACT Activated Clotting Time 210 sec (74-137)
--- NOTE | 2024-09-22 13:40 | DCINST_ITS ---
Discharge Instructions Diet Discharge Diet: Low fat / Low cholesterol and 1800 Calorie Control Diet DC O2, CPAP, BIPAP needs Home O2 Discharge instructions: No Dressing / Incision Discharge Activity: Return to Normal Activity Dressing / Incision Call your doctor if your incision/area has: Continuous Slow Oozing, Sudden Increased Bleeding, Increased Pain/ Swelling, Increased Redness and Foul Smelling Discharge Call your doctor if you observe: Fever of 101 or Higher, Coldness, Increased Pain, Numbness or Tingling and Change in Color Follow Up Care Please Follow Up With: Apryl Mathew MD When: 2-4 weeks Test Results: Test results from this visit will be discussed in further detail at your follow- up appointment, if applicable. Discharge Plan Admission Admit Date/Time: 09/22/24 13:37 Attending Provider: Apryl Mathew Primary Care Provider: Allen Jackson Chi Discharge Orders/Prescriptions Prescriptions: New clopidogrel 75 mg Tablet 75 mg PO DAILY Qty: 30 6RF carvedilol 3.125 mg Tablet 3.125 mg PO BID Qty: 60 11RF Continued sevelamer carbonate 800 mg tablet 1,600 mg PO TID Rx Instructions: must administer with a meal/food Triphrocaps 1 mg capsule 1 cap PO DAILY calcitriol 0.25 mcg capsule 0.25 mcg PO DAILY insulin glargine [Lantus Solostar U-100 Insulin] 100 unit/mL (3 mL) insulin pen 25 unit subcut QAM nifedipine 60 mg tablet extended release 24hr 60 mg PO BID atorvastatin 40 mg tablet 40 mg PO QDAY gabapentin 100 mg capsule 100 mg PO QHS pantoprazole 40 mg tablet,delayed release (DR/EC) 40 mg PO QDAY aspirin [Adult Aspirin Regimen] 81 mg tablet,delayed release (DR/EC) 81 mg PO QDAY Qty: 90 3RF Discontinued felodipine 10 mg tablet extended release 24 hr 10 mg PO QDAY Referrals / Follow Up: Allen Jackson Chi, MD [Primary Care Provider] - Disposition Disposition (needs filled in before D/C Order can be placed): Home, Self Care
--- NOTE | 2024-09-22 14:12 | CRPHASE1 ---
Patient Communication Patient Information Former Patient:: Phase I PHII Cardiac Rehab Discussed with Patient:: Yes Guide to Cardiac Rehab Given to Patient:: Yes Cardiac Rehab Facility Choice List Given to Patient:: Yes Communication to Cardiac Rehab Choice Program [facility] CR PHII:: Communication Given to CR Outside Dealer Sales Representative:: Apryl Mathew Cardiac Rehabilitation Info Program Information Cardiac Rehabilitation Program Information: Cardiac Rehab The cardiac rehab team at [facility] consists of highly skilled exercise physiologists, nurses, respiratory therapists and physicians working together with you. Our purpose is to help you have a full recovery and achieve the goals you set for yourself. Over the years many of our patients have returned to activities they assumed they would never do again! We can help restore your confidence and motivation to make lifestyle changes that can have a significant impact on your health and quality of life! We can help answer questions and concerns you may have about exercise, lifestyle, medications, diet, stress and anxiety which are common following a hospitalization. WE monitor ECG and vital signs during exercise and discuss your progress with you and report to your physician(s). Cardiac Rehab is proven to help reduce readmissions, improve functional capacity and lower recurrence of problems with your heart. Our Cardiac Rehab program is Certified by the [place] [employer]Vascular and Pulmonary [employer] (AACVPR) and Accredited by the [place] [employer] through our [facility]. You can contact us at . We invite you to call us with your questions or to get started in our program. If you have other questions or concerns be sure to ask your physician/provider during your follow-up visit. WE look forward to seeing you!
--- NOTE | 2024-09-22 14:13 | CRPH1.INSTRU ---
General Education Discussed with Patient CAD and cardiac anatomy and function:: Family communicates acknowledgment Explanation of diagnoses and procedures:: Family communicates acknowledgment Sign/Symptoms of PA:: Family communicates acknowledgment Antiplatelet therapy: Family communicates acknowledgment Proper use of NTG-SL: Family communicates acknowledgment Emergency procedures and activation of EMS: Family communicates acknowledgment Compliance of all prescribed medications: Family communicates acknowledgment Smoking Risk Factors Patient Nicotine/Smoking Risk Factors Are:: Non-smoker Recommendations Recommendations Include:: Second-hand smoke recommendation Response Code Nicotine/Smoking Response Code:: Family communicates acknowledgment Dyslipidemia Recommendations Recommendations Include:: Lipid profile not available Response Code Dyslipidemia Response Code:: Family communicates acknowledgment Overweight/Obesity Risk Factors Patient Overweight/Obesity Risk Factors Are:: BMI Normal [24-29 & > 65 years old] Response Code Overweight/Obesity:: Family communicates acknowledgment Hypertension Recommendations Recommendations Include:: BP <130/80 if diabetic Response Code Hypertension:: Family communicates acknowledgment Heart Disease Recommendations Recommendations Include:: Educated family members of importance of prevention of heart disease Response Code Heart Disease Response Code:: Family communicates acknowledgment Diabetes Recommendations Recommendations Include:: Maintain fasting blood sugars 70-110 md/dL, Maintain HgbA1c of 6% or less and Monitor blood sugar as prescribed Response Code Diabetes:: Family communicates acknowledgment Metabolic Syndrome Recommendations Recommendations Include:: Does not meet criteria Response Code Metabolic Syndrome Response Code:: Family communicates acknowledgment Sedentary Recommendations Recommendations Include:: Monitored Outpatient Cardiac Rehab Response Code Sedentary Response Code:: Family communicates acknowledgment Stress Recommendations Recommendations Include:: Identification of stressors, and assessment of coping skills and Stress management techniques Response Code Stress Response Code:: Family communicates acknowledgment
--- NOTE | 2024-09-22 15:24 | NURSING ---
This RN called nephrology consult to Dr. Rylee Coronel, who responded that we are unable to do peritoneal dialysis here. This RN contacted Dr. Mathew who stated that if pt was able to do his own peritoneal dialysis, then the nephro consult could be cancelled. Primary RN Angi Hollingsworth, spoke with Skip family who stated they would be able to bring in his home equipment and do his peritoneal dialysis and nephrology consult is to be canceled. Sy SANTOS
[2024-09-22] MEDS: Clopidogrel Bisulfate 300 MG Tablet PO (17:16)
[2024-09-22] MEDS: SEVELAMER CARBONATE 800 MG TABLET 1600 MG PO (17:16)
--- NOTE | 2024-09-22 17:34 | CL.I_ITS ---
Patient Name: NOÉ PINO Study Date: 09/22/2024 Performing: Apryl Mathew MD Ht: 67 inches 170.18 cm : 1950 Wt: 154.2 lbs 69.85 kg Age: 73 Gender: male BSA: 1.81 PROCEDURE(S) PERFORMED DC02-(46874)LHC/COR IC12-([id number])JANNY W/WO PTCA, SINGLE CORONARY ARTERY IC12-([id number])JANNY W/WO PTCA, SINGLE CORONARY ARTERY CLINICAL PROFILE AND CO-MORBIDITIES Indications: Suspected CAD Heart Failure: None Stress/Imaging Stress Test w/SPECT MPI: Yes Result: Positive High Risk Stress Test with SPECT MPI: Positive High Risk CAD Presentations: No Sxs, no angina. CONCLUSIONS 50% Mid LAD, 90% Prox D1 95% Prox Ramus 90% ostial/Prox OM1 (small vessel) LVEDP 18 mm Hg Successful PTCA/JANNY Prox D1 using [place] 2.0x18 mm Successful PTCA/JANNY Prox Ramus using [place] 2.0x8 mm RECOMMENDATIONS ASA Indefinitley P2Y12 inhibitors for atleast 6 months Medical management Prox OM1 lesion DESCRIPTION OF PROCEDURE The patient arrived to the procedure lab. The risks and benefits of the procedure as well as a full description of our services here and lack of surgical backup were fully explained to the patient and/or their significant other prior to the catheterization. The Timeout was completed, verifying the correct patient and procedure. The patient's procedural site was prepped and draped in the usual fashion. Local anesthetic was given subcutaneously to right radial region with Lidocaine 2%. Using a modified Seldinger technique, arterial access was obtained via the right radial artery, a 6Fr sheath was inserted.. Left Coronary Artery selective angiography was performed in multiple views using a 5 Fr. 4.0 [place] catheter. Right Coronary Artery selective angiography was then performed in multiple views using a 5 Fr. JR 4 catheterThe images were reviewed and options discussed. A decision was then made to proceed with an Intervention, IVUS or other adjunct procedure. XB 3.0 Guide catheter was inserted and engaged into the LCA. XB 3.5 Guide catheter was inserted and engaged into the LCA. Runthrough Guide wire was advanced to the Diag [place] Iris 2.0x18 Drug Eluting stent was inserted. Drug Eluting stent was removed intact, failed to cross lesion Emerge 2.00x12 Balloon catheter was inserted. Emerge 1.50x15 Balloon catheter was inserted. PTCA balloon inflated at 12 atms for 16 secs. PTCA balloon inflated at 12 atms for 10 secs. PTCA balloon inflated at 14 atms for 19 secs. PTCA balloon inflated at 14 atms for 18 secs. Angiogram performed post balloon dilatation. Emerge 2.00x12 Balloon catheter was inserted. PTCA balloon inflated at 8 atms for 12 secs. PTCA balloon inflated at 8 atms for 6 secs. Angiogram performed post balloon dilatation. [place] 2.00x18 Drug Eluting stent was inserted. Angiogram performed post stent deployment. NC Emerge 2.00x12 Balloon catheter was inserted. Angiogram performed pre balloon dilatation. Angiogram performed post balloon dilatation. Runthrough Guide wire was advanced to the Ramus. Emerge 2.00x12 Balloon catheter was inserted. Emerge 1.50x8 Balloon catheter was inserted. PTCA balloon inflated at 8 atms for 14 secs. Angiogram performed post balloon dilatation. Emerge 2.00x8 Balloon catheter was inserted. PTCA balloon inflated at 6 atms for 11 secs. PTCA balloon inflated at 8 atms for 13 secs. PTCA balloon inflated at 6 atms for 6 secs. PTCA balloon inflated at 6 atms for 9 secs. Angiogram performed post balloon dilatation. [place] 2.0x8 Drug Eluting stent was inserted. Angiogram performed post stent deployment. NC Emerge 2.00x8 Balloon catheter was inserted. Angiogram performed post balloon dilatation. The arterial sheath was pulled and a TR Band was applied for hemostasis w/ 12ml air CORONARY ANGIOGRAPHY DOMINANCE: Left Dominant LEFT HEART ASSESSMENT LVEDP: 18 mm Hg mmHg LEFT MAIN: Angiographically normal LEFT ANTERIOR DESCENDING ARTERY: LAD: Tubular 50% Mid lesion in LAD DIAGONAL 1: Tubular 50% Proximal lesion in 1st Diagonal Tubular 90% Mid lesion in 1st Diagonal OM 1: Tubular 90% Proximal lesion in MARG1 OM 2: Tubular 90% Proximal lesion in MARG1 RAMUS: Tubular Calcified 95% Proximal lesion in Ramus RIGHT CORONARY ARTERY: RCA: Tubular 50% Mid lesion in RCA INTERVENTION INFORMATION LESION SITE: 1st Diagonal (Proximal) Lesion Complexity: Non-High/Non-C, lesion length: 16 mm Pre Stenosis: 90 % Pre intervention VIKTORIA flow: 3 PROCEDURE: Drug Eluting Stent with pre and post dilatation Post Stenosis: 0 % Post intervention VIKTORIA flow: 3 Lesion Devices: Terumo .014 180cm Runthrough Extra Floppy straight Cordis 6 Fr XB3.5 100cm Guide Catheter Thomas Sci EMERGE MR 2.00x12 BALLOON Thomas Sci EMERGE MR 1.50x15 BALLOON Thomas Sci NC EMERGE MR 2.00x12 BALLOON LESION SITE: Ramus (Proximal) Lesion Complexity: Non-High/Non-C, lesion at bifurcation: Yes, lesion length: 6 mm Pre Stenosis: 95 % Pre intervention VIKTORIA flow: 3 PROCEDURE: Drug Eluting Stent with pre and post dilatation Post Stenosis: 0 % Post intervention VIKTORIA flow: 3 Lesion Devices: Cordis 6 Fr XB3.5 100cm Guide Catheter Terumo .014 180cm Runthrough Extra Floppy straight Thomas Sci EMERGE MR 2.00x08 BALLOON Thomas Sci EMERGE MR 1.50x08 BALLOON Medtronic 2.00 x 08 IRIS FRONTIER JANNY Thomas Sci NC EMERGE MR 2.00x08 BALLOON COMPLICATIONS No Complications PROCEDURE MEDICATIONS Versed 1 mg IV Fentanyl 50 mcg IV Versed 1 mg IV Oxygen: 2 L/min via nasal cannula Brilinta 180 mg PO @ 09/22/2024 11:53:28 Heparin given IA 09/22/2024 11:35:38 Heparin 5000 unit(s) IV 09/22/2024 11:54:30 Heparin 3000 unit(s) IV 09/22/2024 12:05:47 Heparin 2000 unit(s) IV 09/22/2024 12:35:43 Heparin 2000 unit(s) IV 09/22/2024 12:50:16 Nitro 200 mcg IC 09/22/2024 12:21:35 Nitro 200 mcg IC 09/22/2024 12:21:35 Verapamil 2.5mg, Ntg 200mcgs, 2000 units of Heparin given IA 09/22/2024 11:35:38 SUMMARY OF HEMODYNAMIC DATA Time AIR REST ECG 09:51:31 AO 124/58 (74) SA 11:42:44 LV 88/3, 11 11:46:10 LV 125/6, 18 11:46:19 AO 123/52 (80) 11:47:54 AO 170/80 (117) 12:17:22 AO 151/62 (99) 12:21:28 AO 141/68 (101) 12:29:00 Signed By Apryl Mathew MD On 09/22/2024 17:33:58 Apryl Mathew MD
[2024-09-22] MEDS: Carvedilol 3.125 MG TABLET PO (21:45)
[2024-09-22] MEDS: NIFEdipine 60 MG Tablet PO (21:45)
[2024-09-22] MEDS: Gabapentin 100 MG Capsule PO (21:46)
[2024-09-23 01:25] VITALS: BP 139/63; PULSE 69; RESP 14; TEMP 36.4; O2SAT 97
[2024-09-23 05:20] VITALS: BP 111/56; PULSE 69; RESP 16; TEMP 36.6; O2SAT 100
[2024-09-23 06:46] LABS: Hematocrit 27.5 % (40-54); Hemoglobin 9.3 g/dL (13.0-16.5); Mean Corp Hgb Conc 33.8 g/dL (32-36); Mean Corpuscular Hgb 30.5 pg (27.0-32.0); Mean Corpuscular Volume 90.2 fL (80-94); Mean Platelet Vol. 9.7 fl (6.2-12.0); Platelet Count 187 K/mm3 (150-450); RBC Distribution Width CV 12.7 % (11.6-14.6); RBC Distribution Width SD 41.3 fl (35.1-43.9); Red Blood Count 3.05 M/mm3 (4.6-6.2); White Blood Count 6.4 K/mm3 (4.4-11.0)
[2024-09-23 07:14] LABS: AST(SGOT) 19 U/L (<=37); Alanine Aminotransfer ALT/SGPT 13 U/L (<=46); Albumin, Serum 3.5 g/dL (3.4-4.8); Alkaline Phosphatase 43 U/L (40-129); Anion Gap 15 (5-15); BUN 62 mg/dL (4-19); BUN/Creat Ratio 5.6 RATIO (10-20); Calcium,Total 10.1 mg/dL (7.6-11.0); Chloride 95 mmol/L (98-108); EST Glomerular Filtration Rate 5 (>60); Estimated Creatinine Clearance 5.76 ml/min (50-250); Globulin 3.4 g/dL (2.2-4.2); Glucose 115 mg/dL (70-99); Potassium 4.7 mmol/L (3.3-5.1); Protein, Total 6.9 g/dL (5.9-8.4); Sodium Level 132 mmol/L (133-145); Total Bilirubin 0.25 mg/dL (0.00-1.30)
--- NOTE | 2024-09-23 07:35 | PN.CARD_ITS ---
Subjective Subjective Called to see the patient due to a question about his wrist access site for his catheterization/PCI. The patient was hypertensive last evening requiring IV hydralazine to control his blood pressure which came under nice control. He did have a small hematoma and ecchymoses in his right wrist. The patient denies any pain at this point in time denies any paresthesias in his right hand. Objective Data Vital Signs: Vital Signs Temp Pulse Resp BP Pulse Ox O2 Del Method 97.8 F 69 16 111/56 L 100 Room Air 09/23/24 05:20 09/23/24 05:20 09/23/24 05:20 09/23/24 05:20 09/23/24 05:20 09/23/24 05:32 Oxygen Delivery Method Room Air Weight: 153 lb 15.992 oz Body Mass Index (BMI) 24.1 Lab / Micro Data Attestation: I reviewed the patient's lab results. 09/23/24 06:13 09/23/24 06:13 Labs: Laboratory Results - last 24 hr 09/22/24 11:03: Activated Clotting Time 210 H 09/22/24 12:13: Activated Clotting Time 251 H 09/23/24 06:13: WBC 6.4, RBC 3.05 L, Hgb 9.3 L, Hct 27.5 L, MCV 90.2, MCH 30.5, MCHC 33.8, RDW Std Deviation 41.3, RDW Coeff of Brittney 12.7, Plt Count 187, MPV 9.7, Sodium 132 L, Potassium 4.7, Chloride 95 L, Carbon Dioxide 22.0, Anion Gap 15, BUN 62 H, Creatinine 11.00 H*, Estim Creat Clear Calc 5.76 L*, Est GFR (MDRD) Non-Af 5 L, BUN/Creatinine Ratio 5.6 L, Glucose 115 H, Calcium 10.1, Total Bilirubin 0.25, AST 19, ALT 13, Alkaline Phosphatase 43, Total Protein 6.9, Albumin 3.5, Globulin 3.4, Albumin/Globulin Ratio 1.0 Rhythm Strip Rhythm Strip: Paced Cardiology Labs/Tests 09/23/24 06:13: WBC 6.4, RBC 3.05 L, Hgb 9.3 L, Hct 27.5 L, MCV 90.2, MCH 30.5, MCHC 33.8, Plt Count 187, MPV 9.7, Sodium 132 L, Potassium 4.7, Chloride 95 L, Carbon Dioxide 22.0, Anion Gap 15, BUN 62 H, Creatinine 11.00 H*, Est GFR (MDRD) Non-Af 5 L, BUN/Creatinine Ratio 5.6 L, Glucose 115 H, Calcium 10.1, Total Bilirubin 0.25 Rhythm: EKG: ECHO: Stress Test: Cardiac Cath: PCI: CT Surgery: Holter monitor: EPS: PPM: CXR: Chest CT Scan: Physical Exam Narrative Patient does not speak N[place]uan. His son was in the room who acted as an child care aide but admitted that he does not understand complete Nauruan either. I did record on the son's phone discharge instructions concerning the patient's wrist and his medical therapy. There is a family member who speaks fluent [place] Const alert HEENT normocephalic Eyes EOMs intact bilaterally Chest inspection of chest normal Chest: left pectoral incision Resp normal respiratory effort Cardio regular rate and regular rhythm Cardio Narrative: Right wrist shows an area of ecchymoses approximately one third of the distal forearm. There is no tenderness there is no tightness. The patient has good capillary refill and no paresthesias of his fingertips. Extremity Extremity Narrative: See cardiology narrative above for right wrist. Assessment & Plan Assessment/Plan (1) CAD (coronary artery disease): QUALIFIERS: Coronary Disease-Associated Artery/Lesion type: [place] artery [place] vs. transplanted heart: [place] heart Associated angina: without angina Qualified Code(s): I25.10 - Atherosclerotic heart disease of [place] coronary artery without angina pectoris PLAN: Patient status post JANNY to the proximal diagonal 1 and proximal ramus branch of the circumflex. This was done yesterday by Dr. Mathew. Right wrist shows some ecchymosis but no evidence of vascular compromise. The patient denies any pain. (2) Presence of cardiac pacemaker: PLAN: Patient's pacemaker appears to be functioning normally by telemetry. (3) End stage renal disease on dialysis: PLAN: Patient is on home peritoneal dialysis. PLAN: Plan 1. Patient should continue his home medications. 2. Patient should continue aspirin and clopidogrel 75 mg daily uninterrupted for 6 months at minimum. 3. Patient should follow-up with Dr. Mathew in his office per his previous arranged appointment. They should call the office to confirm the date and time. 4. My cardiovascular standpoint the patient can be discharged to home.
[2024-09-23 07:44] VITALS: O2SAT 97
[2024-09-23 08:24] VITALS: BP 124/60; PULSE 69; RESP 17; TEMP 36.7; O2SAT 95
[2024-09-23] MEDS: NIFEdipine 60 MG Tablet PO (08:28)
[2024-09-23] MEDS: Atorvastatin Calcium 40 MG Tablet PO (08:28)
[2024-09-23] MEDS: SEVELAMER CARBONATE 800 MG TABLET 1600 MG PO (08:28)
[2024-09-23] MEDS: Folic Acid/Vitamin B Comp W-C 1 Capsule 1 CAP PO (08:28)
[2024-09-23] MEDS: Calcitriol 0.25 MCG Capsule PO (08:28)
[2024-09-23] MEDS: Pantoprazole Sodium 40 MG Tablet PO (08:28)
[2024-09-23] MEDS: Carvedilol 3.125 MG TABLET PO (08:28)
[2024-09-23] MEDS: Clopidogrel Bisulfate 75 MG Tablet PO (08:28)
[2024-09-23] MEDS: Aspirin E.C. 81 MG Tablet PO (08:28)
[2024-09-23] MEDS: Insulin Glargine-YFGN 100 UNIT/ML Pen 25 UNIT SC (08:29)
--- NOTE | 2024-09-23 10:03 | PCM.PN.BLA ---
Progress Note chart reviewed. Discussed with pt son and son's sig other at bedside and with cardiology. Follow up in dialysis clinic on September 30. Pt doing well. Dialysis to be done at home since PD services not available in the hospital.
== END 2024-09-23 10:54 | disposition home or self-care (01) ==
LOC: PCU 13:43
PROVIDERS: Admitting Provider Internal Medicine Cardiovascular Disease; PCP Family Medicine Geriatric Medicine; Referring Provider Internal Medicine Cardiovascular Disease; Visit Provider Internal Medicine Cardiovascular Disease
DX: I25.10 Atherosclerotic heart disease of native coronary artery without angina pectoris (principal); N18.6 End stage renal disease; I12.0 Hypertensive chronic kidney disease with stage 5 chronic kidney disease or end stage renal disease; I49.5 Sick sinus syndrome; E11.22 Type 2 diabetes mellitus with diabetic chronic kidney disease; Z79.4 Long term (current) use of insulin; E11.42 Type 2 diabetes mellitus with diabetic polyneuropathy; Z99.2 Dependence on renal dialysis; Z95.0 Presence of cardiac pacemaker; Z79.899 Other long term (current) drug therapy; E78.00 Pure hypercholesterolemia, unspecified; K21.9 Gastro-esophageal reflux disease without esophagitis; R94.39 Abnormal result of other cardiovascular function study
CPT/HCPCS: 36415; 80053; 85027; 85347; 92928; 93005; 93454; 94762; 99152; 99153; 99221; C1874; Q9967; C1725; C1769; C1887; C1894; C9600; G0378

== ENCOUNTER → 2024-11-24 | Outpatient (CLI) | payer BC, SELFPAY ==
[2024-11-24 09:16] LABS: AST(SGOT) 42 U/L (<=37); Alanine Aminotransfer ALT/SGPT 31 U/L (<=46); Albumin, Serum 4.0 g/dL (3.4-4.8); Alkaline Phosphatase 46 U/L (40-129); Bilirubin, Direct 0.10 mg/dL (0.00-0.30); Ferritin 369 ng/mL (37-417); Globulin 2.4 g/dL (2.2-4.2); Iron 60 ug/dL (65-175); Iron Binding Capacity,Total 321 ug/dL (250-450); Iron Binding Capacity,Unsat 261 ug/dL (228-428)
[2024-11-25 15:08] LABS: ANTINUCLEAR ANTIBODIES DIRECT Negative (Negative); Alpha Antitrypsin Serum 116 mg/dL (101-187)
[2024-11-26 09:08] LABS: Anti-Smooth Muscle ABS 10 Units (0-19); Immunoglobulin A 98 mg/dL (61-437)
== END | disposition home or self-care (01) ==
LOC: LAB 07:36
PROVIDERS: PCP Family Medicine Geriatric Medicine
DX: Z01.818 Encounter for other preprocedural examination (principal); N18.6 End stage renal disease; R79.89 Other specified abnormal findings of blood chemistry
CPT/HCPCS: 36415; 80076; 82103; 82728; 82784; 83516; 83540; 83550; 86038; 86255

== ENCOUNTER 2025-03-24 14:18 | Outpatient (CLI) | payer BC, SELFPAY ==
[2025-03-24 14:30] VITALS: BP 183/77; PULSE 80; RESP 16; TEMP 35.8; O2SAT 99; BMI 24.5
[2025-03-24] MEDS: Penicillin G Benzathine 2.4 MU/4 ML Syringe IM (15:03)
== END 2025-03-24 23:59 | disposition home or self-care (01) ==
PROVIDERS: PCP Family Medicine Geriatric Medicine; Referring Provider Family Medicine Geriatric Medicine; Visit Provider Family Medicine Geriatric Medicine
DX: A53.9 Syphilis, unspecified (principal)
CPT/HCPCS: 96372; J2785

== ENCOUNTER → 2025-03-24 | Outpatient (CLI) | payer BC, SELFPAY ==
--- NOTE | 2025-03-24 14:22 | STRESSREP_ITS ---
Stress Test Report Date: 03/24/2025 Procedure: Pharmacologic stress nuclear imaging study Indications: Coronary artery disease Consent: Per the patient Procedure: The patient underwent pharmacologic (Regadenoson 0.4mg ) evaluation with a peak heart rate of 80 beats per minute (54%predicted maximal heart rate) and a peak blood pressure of 152/78 mmHg. The baseline ECG demonstrated sinus rhythm with nonspecific ST changes. The peak pharmacologic ECG was nondiagnostic secondary to baseline abnormality. There were no cardiac dysrhythmias pretest, during pharmacologic infusion, or recovery. There was no complaint of chest discomfort during pharmacologic infusion or recovery. The patient was injected with 11.3 millicuries of technetium 99m Cardiolite and subsequently rest SPECT Cardiolite nuclear imaging was obtained in the horizontal long, vertical long, and short axis views. The patient underwent pharmacologic (Regadenoson) evaluation. The patient was injected with 33.7 millicuries of technetium 99m Cardiolite and subsequently stress SPECT Cardiolite nuclear imaging was obtained in the horizontal long, vertical long, and short axis views. A gated Cardiolite study at peak stress was obtained. The examination was stopped secondary to completion of protocol. Rest and stress SPECT Cardiolite nuclear imaging status post realignment, normalization, and attenuation correction demonstrate no fixed or reversible perfusion defects. There is end systolic thickening and brightening. The gated Cardiolite study demonstrates myocardial thickening and inward wall motion. The reported LVEF is 59%. Impression: 1. Pharmacologic (Regadenoson) evaluation 2. Peak pharmacologic ECG was nondiagnostic secondary to baseline abnorma lities. 3. There were no cardiac dysrhythmias pretest, during pharmacologic infusion, or recovery. 5. Rest and stress SPECT Cardiolite nuclear imaging demonstrate relative uniform tracer uptake and myocardial perfusion appearing within normal limits. 6. The gated Cardiolite study reports an LVEF of 59%. This note was generated with [employer] software. It may contain incorrect words, spelling, and punctuation that were not noted in checking the note before signing.
== END | disposition home or self-care (01) ==
LOC: CVS 06:27
PROVIDERS: PCP Family Medicine Geriatric Medicine; Referring Provider Nurse Practitioner Family; Visit Provider Nurse Practitioner Family
DX: I25.10 Atherosclerotic heart disease of native coronary artery without angina pectoris (principal); N18.6 End stage renal disease; E11.65 Type 2 diabetes mellitus with hyperglycemia; E11.22 Type 2 diabetes mellitus with diabetic chronic kidney disease; Z95.5 Presence of coronary angioplasty implant and graft; E78.5 Hyperlipidemia, unspecified; Z95.0 Presence of cardiac pacemaker; Z99.2 Dependence on renal dialysis
CPT/HCPCS: 78452; 93017; A9500; A4216

== ENCOUNTER 2025-03-31 14:22 | Outpatient (CLI) | payer BC, SELFPAY ==
[2025-03-31 14:30] VITALS: BP 156/61; PULSE 63; RESP 16; TEMP 36.3; O2SAT 100
[2025-03-31] MEDS: Penicillin G Benzathine 2.4 MU/4 ML Syringe IM (14:42)
--- OUTSIDE RECORDS SUMMARY | 2025-03-31 19:03 | XMS RPT_ITS | CCD ---
Author Organization [facility] Care Team Providers Care Director Of Catering Name Role Phone Manuel HARDY, Prudencio Primary Care Provider [phone] ManuelAllen bach Chi Primary Care Provider MANUEL, ALLEN CHI Primary Care Unavailable MANUEL, ALLEN CHI Primary Care Unavailable KEANU ZARATE Attending Unavailable KEANU ZARATE Referring Unavailable MANUEL, ALLEN CHI Primary Care Unavailable MERE BRUNNER Referring Unavailable MANUEL, ALLEN CHI Primary Care Unavailable KEANU ZARATE Attending Unavailable MERE BRUNNER Referring Unavailable MANUEL, ALLEN CHI Primary Care Unavailable Manuel HARDY, Dr. Allen Norris Primary Care Provider [phone] Dr. Allen Jackson MD, Chi Attending Provider Dr. lAlen Jackson MD, Chi Referring Provider [phone] MANUEL, ALLEN-CHI Primary Care Unavailable MANUEL, ALLEN-CHI Primary Care Unavailable MANUEL, ALLEN-CHI Primary Care Unavailable BRENDA BLACKWOOD Referring Unavailable MANUEL, ALLEN-CHI Primary Care Unavailable BRIANA LYNN Admitting Unavailable BRIANA LYNN Attending Unavailable GIANCARLO CHARLES Consulting Unavailable JANY AWAN Consulting Unavailable Quincy HARDY, Dr. Pink Attending Provider Dr. Apryl Mathew MD Referring Provider Dr. Apryl Mathew MD Admit Provider [phone] Dr. Apryl Mathew MD Other Provider [phone] Dr. Rakesh Young MD Attending Provider Dr. Toño Fernandez MD Attending Provider [phone] Pema SOLITARIO-Bola Holley Attending Provider [phone] Dr. Allen Jackson MD, Chi Primary Care Provider [phone] Manuel HARDY, Dr. Allen Norris Attending Provider [phone] Jim HARDY, Dr. Lundberg Referring Provider MORIGO PIMENTEL Attending Provider MOUSARIGO Referring Provider Dr. Allen Jackson MD, Chi Primary Care Provider [phone] Dr. Allen Jackson MD, Chi Referring Provider RIGO JUNG Attending Provider MORIGO PIMENTEL Referring Provider KALI GIBSON Attending Unavailable MANUEL, ALLEN CHI Primary Care Unavailable KIKALI GONZALEZ Attending Unavailable MANUEL, ALLEN CHI Primary Care Unavailable KISHKALI BURCH Attending Unavailable MANUEL, ALLEN CHI Primary Care Unavailable KISHKALI BURCH Attending Unavailable MANUEL, ALLEN CHI Primary Care Unavailable KALI GIBSON Attending Unavailable MANUEL, ALLEN CHI Primary Care Unavailable KALI GIBSON Admitting Unavailable ANDERSSHKALI BURCH Attending Unavailable KISHMANKALI Referring Unavailable MANUEL, ALLEN CHI Primary Care Unavailable KISHKALI BURCH Attending Unavailable MANUEL, ALLEN CHI Primary Care Unavailable KISHKALI BURCH Attending Unavailable MANUEL, ALLEN CHI Primary Care Unavailable KISHKALI BURCH Attending Unavailable MANUEL, ALLEN CHI Primary Care Unavailable KISHKALI BURCH Attending Unavailable MANUEL, ALLEN CHI Primary Care Unavailable KISHMANKALI Attending Unavailable MANUEL, ALLEN CHI Primary Care Unavailable Manuel, Allen Chi Attending Unavailable Manuel, Allen Chi Primary Care Unavailable Manuel, Allen Chi Attending Unavailable Manuel, Allen Chi Primary Care Unavailable Manuel, Allen Chi Referring Unavailable Manuel, Allen Chi Primary Care Unavailable PEACE, NANCY Referring Unavailable PEACE, NANCY Attending Unavailable Roof TAPE DUPLICATOR, Bola H Referring Unavailable Roof TAPE DUPLICATOR, Bola H Consulting Unavailable Manuel, Allen Chi Primary Care Unavailable Quincy, Apryl Attending Unavailable Roof TAPE DUPLICATOR, Bola H Attending Unavailable Manuel, Allen Chi Referring Unavailable Manuel, Allen Chi Primary Care Unavailable Manuel, Allen Chi Primary Care Unavailable Manuel, Allen Chi Referring Unavailable Quincy, Apryl Attending Unavailable Quincy, Apryl Attending Unavailable Manuel, Allen Chi Primary Care Unavailable Quincy, Apryl Referring Unavailable Manuel, Allen Chi Primary Care Unavailable Rylee Coronel Consulting Unavailable QuincyApryl Attending Unavailable Quincy, Apryl Admitting Unavailable Quincy, Apryl Referring Unavailable Manuel, Allen Chi Referring Unavailable Manuel, Allen Chi Primary Care Unavailable Manuel, Allen Chi Attending Unavailable Manuel, Allen Chi Primary Care Unavailable Jim, Toño Attending Unavailable Roof TAPE DUPLICATOR, Bola H Referring Unavailable Roof TAPE DUPLICATOR, Bola H Attending Unavailable Manuel, Allen Chi Primary Care Unavailable Manuel, Allen Chi Primary Care Unavailable PEACE NANCY Referring Unavailable PEACE NANCY Attending Unavailable Manuel, Allen Chi Primary Care Unavailable Manuel, Allen Chi Referring Unavailable Manuel, Aleln Chi Attending Unavailable Manuel, Allen Chi Primary Care Unavailable Jim, Neffs Attending Unavailable Jim, Neffs Referring Unavailable Roof TAPE DUPLICATOR, Bola H Attending Unavailable Manuel, Allen Chi Primary Care Unavailable Manuel, Allen Chi Referring Unavailable Roof TAPE DUPLICATOR, Bola Champagne Attending Unavailable Manuel, Allen Chi Referring Unavailable Manuel, Allen Chi Primary Care Unavailable Jim, Neffs Attending Unavailable Manuel, Allen Chi Primary Care Unavailable Jim, Neffs Referring Unavailable Manuel, Allen Chi Primary Care Unavailable Jim, Neffs Referring Unavailable Jim, Toño Attending Unavailable Manuel, Allen Chi Primary Care Unavailable Quincy, Apryl Attending Unavailable Quincy, Apryl Referring Unavailable Manuel, Allen Chi Primary Care Unavailable Quincy, Apryl Consulting Unavailable Quincy, Apryl Admitting Unavailable Quincy, Apryl Referring Unavailable Rakesh Young Attending Unavailable Medications Current Medications Medication Drug Class(es) Dates Sig (Normalized) Sig (Original) acetaminophen 325 mg / HYDROcodone bitartrate 5 mg oral tablet (1 source) Opioid Agonist Start: 08-21-2024 End: 08-28-2024 take 1 tablet by mouth every eight hours as needed for pain HYDROcodone-aceta minophen (NORCO) 5-325 mg per tablet Indications: Post-operative state , Closed trimalleolar fracture of left ankle, initial encounter Take 1 tablet by mouth every 8 hours as needed for pain for up to 7 days. 21 tablet 08/21/2024 08/28/2024 Active ascorbic acid 100 mg / d-biotin 0.3 mg / folic acid 1 mg / niacinamide 20 mg / pantothenic acid 10 mg / pyridoxine hydrochloride 10 mg / riboflavin 1.7 mg / thiamine 1.5 mg / vitamin b12 0.006 mg oral tablet (4 sources) Vitamin B12, Vitamin C take 1 tablet by mouth once daily at breakfast B complex-vitamin C-folic acid (Nephro-Jordon Rx) 1 MG tablet Take 1 tablet by mouth daily (with breakfast). Active aspirin 81 mg delayed release oral tablet (7 sources) Platelet Aggregation Inhibitor, Nonsteroidal Anti-inflammatory Drug Start: 09-16-2024 take 1 tablet by mouth once daily Aspirin (Adult Aspirin Regimen) 81 mg tablet,delayed release (DR/EC) Active 81 mg PO daily 90 September 16, 2024 12:00am B Complex And C 20-Folic Acid (Triphrocaps) 1 mg capsule (3 sources) Start: 10-04-2023 take 1 capsule by mouth once daily B Complex And C 20-Folic Acid (Triphrocaps) 1 mg capsule Active 1 NMA PO DAILY October 04, 2023 12:00am B Complex With C 20-Folic Acid (Triphrocaps) 1 mg capsule (5 sources) Start: 10-04-2023 take 1 capsule by mouth once daily B Complex With C 20-Folic Acid (Triphrocaps) 1 mg capsule Active 1 NMA PO DAILY October 04, 2023 12:00am carvedilol 3.125 mg oral tablet (7 sources) alpha-Adrenergic Saw, beta-Adrenergic Saw Start: 09-22-2024 take 1 tablet by mouth twice daily Carvedilol 3.125 mg Tablet Active 3.125 mg PO TWICE A DAY 60 September 22, 2024 12:00am clopidogrel 75 mg oral tablet (9 sources) P2Y12 Platelet Inhibitor Start: 09-22-2024 End: 12-30-2024 take 1 tablet by mouth once daily Clopidogrel 75 mg tablet Active 75 mg PO DAILY 30 December 30, 2024 10:19am docusate sodium 100 mg oral capsule (20 sources) Start: 09-19-2023 End: 01-20-2024 docusate sodium (COLACE) 100 mg capsule Take 100 mg by mouth. 09/19/2023 Active doxycycline hyclate 100 mg oral tablet (2 sources) Tetracycline-class Drug Start: 11-13-2024 End: 11-23-2024 take 1 tablet by mouth twice daily doxycycline (VIBRA-TABS) 100 mg tablet Take 1 tablet by mouth two times a day for 10 days. 20 tablet 11/13/2024 11/23/2024 Active 24 hr felodipine 10 mg extended release oral tablet (20 sources) Dihydropyridine Calcium Channel Saw Start: 12-30-2024 take 1 tablet by mouth once daily Felodipine 10 mg tablet extended release 24 hr Active 10 mg PO daily December 30, 2024 12:00am Start: 09-16-2024 End: 09-22-2024 take 1 tablet by mouth once daily Felodipine 10 mg tablet extended release 24 hr Discontinued 10 mg PO daily September 16, 2024 12:00am September 22, 2024 1:41pm Start: 10-04-2023 End: 09-08-2024 take 1 tablet by mouth once daily Felodipine 10 mg tablet extended release 24 hr Discontinued 10 mg PO daily October 04, 2023 12:00am September 08, 2024 3:50pm fenofibrate 200 mg oral capsule (19 sources) Peroxisome Proliferator Receptor alpha Agonist Start: 12-30-2024 take 1 capsule by mouth once daily Fenofibrate Micronized 200 mg capsule Active 200 mg PO daily December 30, 2024 12:00am fenofibrate (LOF IBRA) 200 mg capsule Take 200 mg by mouth. Active gabapentin 100 mg oral capsule (20 sources) Anti-epileptic Agent Start: 06-24-2024 take 1 capsule by mouth at bedtime Gabapentin 100 mg capsule Active 100 mg PO AT BEDTIME September 08, 2024 12:00am gentamicin 1 mg/ml topical cream (19 sources) Start: 09-19-2023 End: 01-20-2024 gentamicin 0.1% 0.1 % cream Apply to affected area. 09/19/2023 Active 3 ml insulin glargine 100 unt/ml pen injector (20 sources) Insulin Analog Start: 07-24-2024 LANTUS SOLOSTA R U-100 INSULIN 100 unit/mL (3 mL) 07/24/2024 Active Start: 01-18-2024 End: 01-20-2024 inject 30 [IU] by subcutaneous injection once daily in the morning 30 Units, SubCUTAneous, Every morning, First dose on 01/18/24 at 0900 Start: 10-04-2023 Insulin Glargi ne (Lantus Solostar U-100 Insulin) 100 unit/mL (3 mL) insulin pen Active 25 U SC EVERY MORNING October 04, 2023 12:00am lactulose 667 mg/ml oral solution (20 sources) Osmotic Laxative Start: 09-19-2023 End: 01-20-2024 lactulose 10 gram/15 mL solution Take 20 g by mouth. 09/19/2023 Active 24 hr metoprolol succinate 50 mg extended release oral tablet (17 sources) beta-Adrenergic Saw Start: 06-28-2024 take 1 tablet by mouth once daily metoprolol succinate ER (TOPROL XL) 50 mg 24 hr tablet Take 1 tablet by mouth once daily. 06/28/2024 Active mupirocin 0.02 mg/mg topical ointment (2 sources) RNA Synthetase Inhibitor Antibacterial Start: 12-04-2024 mupirocin (BACTROBAN) 2 % ointment Apply to affected area once daily. 15 g 2 12/04/2024 Active NIFEdipine 60 mg osmotic 24 hr extended release oral tablet (7 sources) Dihydropyridine Calcium Channel Saw Start: 09-08-2024 take 1 tablet by mouth twice daily Nifedipine 60 mg tablet extended release 24hr Active 60 mg PO TWICE A DAY September 08, 2024 12:00am pantoprazole 40 mg delayed release oral tablet (20 sources) Proton Pump Inhibitor Start: 09-16-2024 take 1 tablet by mouth once daily Pantoprazole 40 mg tablet,delayed release (DR/EC) Active 40 mg PO daily September 16, 2024 12:00am Start: 10-04-2023 End: 09-08-2024 take 1 tablet by mouth once daily Pantoprazole 40 mg tablet,delayed release (DR/EC) Discontinued 40 mg PO DAILY October 04, 2023 12:00am September 08, 2024 3:52pm pantoprazole DR (PROTONIX) 20 mg tablet Take 40 mg by mouth. Active TRIPHROCAPS 1 mg capsule (17 sources) Start: 06-14-2024 take 1 capsule by mouth once daily TRIPHROCAPS 1 mg capsule Take 1 capsule by mouth once daily. 06/14/2024 Active Completed/Discontinued Medications Medication Drug Class(es) Dates Sig (Normalized) Sig (Original) acetaminophen 325 mg oral tablet (4 sources) Start: 01-19-2024 End: 01-20-2024 take 1 tablet by mouth every four hours as needed for pain 650 mg, Oral, Every 4 hours PRN, mild pain (1-3), Fever > 100.5 F (38 C), Starting on 01/19/24 at 0959, [facility], Maximum dose of acetaminophen is 4000 mg from all sources in 24 hours. Start: 01-17-2024 End: 01-20-2024 take 1 tablet by mouth every six hours as needed for pain and fever acetaminophen (Tylenol) tablet 650 mg ascorbic acid 100 mg / biotin 0.15 mg / calcium pantothenate 5 mg / folic acid 1 mg / niacin 20 mg / pyridoxine 10 mg / riboflavin 1.7 mg / thiamine mononitrate 1.5 mg / vitamin b12 0.006 mg oral capsule (2 sources) Nicotinic Acid, Vitamin B12, Vitamin C Start: 01-18-2024 End: 01-20-2024 take 1 capsule by mouth once daily 1 capsule, Oral, Daily, First dose on 01/18/24 at 0900 atorvastatin 40 mg oral tablet (20 sources) HMG-CoA Reductase Inhibitor Start: 09-08-2024 End: 12-30-2024 take 1 tablet by mouth once daily Atorvastatin 40 mg tablet Discontinued 40 mg PO daily September 08, 2024 12:00am December 30, 2024 10:03am Start: 10-04-2023 End: 09-08-2024 take 1 tablet by mouth once daily Atorvastatin 20 mg tablet Discontinued 20 mg PO DAILY October 04, 2023 12:00am September 08, 2024 3:50pm calcitriol 0.84411 mg oral c apsule (20 sources) Vitamin D3 Analog Start: 01-18-2024 End: 01-20-2024 Start: 10-04-2023 take 1 capsule by [facility] once daily Calcitriol 0.25 mcg capsule Active 0.25 ug PO DAILY October 04, 2023 12:00am calcitriol (BHARAT LTROL) 0.5 mcg capsule Take 0.5 mcg by mouth. Active take 1 capsule by mouth once leydi citriol (Rocaltrol) 0.5 MCG capsule Take 0.5 mcg by mouth daily. Per family, takes 2 tablets at noon Active calcium chloride 0.293013 meq/ml / glucose 1 mg/ml / magnesium chloride 0.2376013 meq/ml / sodium chloride 0.49516 meq/ml / sodium lactate 0.0016 meq/ml intraperitoneal solution (4 sources) Start: 01-19-2024 End: 01-20-2024 IntraPERitoneal, Every 6 jessica rs, First dose on 01/19/24 at 1630, Dialysis, For Peritoneal Dialysis: Bag 2 PD script entails 5 exchanges using 2 L dwells (half 1.5% & half 2.5% dextrose bags) over 8.5 hours, Continuous (CAPD) or Cyclic (CCPD)? Cyclic (CCPD), Therapy time (hours): Other (specify), Explanatory comment: 8 hours 30 minutes, Exchange frequency: Q2H, Exchange volume (L): 2 L, Alternate solutions? No, Number of exchanges daily: 5 Start: 01-19-2024 End: 01-20-2024 IntraPERitoneal, Every 6 jessica rs, First dose on 01/19/24 at 1630, Dialysis, For Peritoneal Dialysis: Bag 1 PD script entails 5 exchanges using 2 L dwells (half 1.5% & half 2.5% dextrose bags) over 8.5 hours, Continuous (CAPD) or Cyclic (CCPD)? Cyclic (CCPD), Therapy time (hours): Other (specify), Explanatory comment: 8 hours 30 minutes, Exchange frequency: Q2H, Exchange volume (L): 2 L, Alternate solutions? No, Number of exchanges daily: 5 cholecalciferol 0.025 mg oral tablet (2 sources) Vitamin D Start: 01-20-2024 End: 01-20-2024 take 1000 [IU] by mouth once daily 1,000 Units, Oral, Daily, First dose on 01/20/24 at 0900 cholecalciferol 9.52 unt/ml / glucose 357 mg/ml oral gel (2 sources) Vitamin D Start: 01-17-2024 End: 01-20-2024 ferrous sulfate 325 mg oral tablet (20 sources) Start: 01-18-2024 End: 01-20-2024 take 325 mg by mouth twice daily at mealtime 325 mg, Oral, 2 times daily with meals, First dose on 01/18/24 at 0800 furosemide 40 mg oral tablet (8 sources) Loop Diuretic Start: 10-04-2023 End: 09-08-2024 take 1 tablet by mouth once daily Furosemide 40 mg tablet Discontinued 40 mg PO DAILY October 04, 2023 12:00am September 08, 2024 3:52pm glucagon (rdna) 1 mg injection (2 sources) Antihypoglycemic Agent Start: 01-17-2024 End: 01-20-2024 150 ml glucose 50 mg/ml injection (4 sources) Start: 01-17-2024 End: 01-20-2024 Start: 01-17-2024 End: 01-20-2024 0.5 ml heparin sodium, porcine 94454 unt/ml prefilled syringe (2 sources) Unfractionated Heparin, Anti-coagulant Start: 01-18-2024 End: 01-20-2024 inject 1 dose by subcutaneous injection twice daily 5,000 Units, SubCUTAneous, Every 12 hours scheduled (2 times per day), First dose on 01/18/24 at 0900, On hold since 01/18/2024 at 1600 until manually unheld insulin lispro 100 unt/ml injectable solution (2 sources) Insulin Analog Start: 01-18-2024 End: 01-20-2024 inject 6 [IU] by subcutaneous injection three times daily at mealtime 0-6 Units, SubCUTAneous, 3 times daily with meals, First dose on 01/18/24 at 0800, Low Dose Correction Algorithm Glucose: Dose: LESS than 139 No Insulin 140-199 1 Unit 200-249 2 Units 250-299 3 Units 300-349 4 Units 350-400 5 Units Above 400 6 Units ondansetron ODT (Zofran-ODT) disintegrating tablet 4 mg (2 sources) Start: 01-17-2024 End: 01-20-2024 take 1 tablet by mouth every eight hours as needed for nausea and vomiting ondansetron ODT (Zofran-ODT) disintegrating tablet 4 mg polyethylene glycol 3350 16037 mg powder for oral solution (2 sources) Osmotic Laxative Start: 01-17-2024 End: 01-20-2024 take 17 g by mouth every twenty-four hours as needed for constipation sevelamer carbonate 800 mg oral tablet (20 sources) Phosphate Binder Start: 01-19-2024 End: 01-20-2024 take 3200 mg by mouth three times daily at mealtime 3,200 mg, Oral, 3 times daily with meals, First dose (after last modification) on 01/19/24 at 1700, Do not crush, chew, or split. Start: 01-18-2024 End: 01-19-2024 take 800 mg by mouth three times daily at mealtime 800 mg, Oral, 3 times daily with meals, First dose on Sat01/18/24 at 0800, Do not crush, chew, or split. Start: 10-04-2023 take 2 tablets by mo uth three times daily at mealtime Sevelamer Carbonate 800 mg tablet Active 1600 mg PO THREE TIMES A DAY October 04, 2023 12:00am must administer with a meal/food sevelamer (Renag el) 800 MG tablet Take 800 mg by mouth in the morning and 800 mg at noon and 800 mg in the evening. Take with meals. Swallow tablet whole; do not crush, break, or chew. Per patient's family: Takes 1 tablet in morning, 2 tablets at noon, 1 tablet in the evening. . Active 50 ml sodium chloride 9 mg/ml injection (2 sources) Start: 01-17-2024 End: 01-18-2024 500 mL, IntraVENous, at 250 mL/hr, Administer over 2 Hours, Once, On Sat01/17/24 at 2320, For 1 dose sulfamethoxazole 800 mg / trimethoprim 160 mg oral tablet (3 sources) Dihydrofolate Reductase Inhibitor Antibacterial, Sulfonamide Antimicrobial Start: 12-04-2024 End: 12-25-2024 take 1 tablet by mouth once daily sulfamethoxazole- trimethoprim (BACTRIM DS) 800-160 mg per tablet Take 1 tablet by mouth once daily for 21 days. 21 tablet 12/04/2024 12/25/2024 Start: 11-16-2024 End: 11-26-2024 take 1 tablet by mouth once daily sulfamethoxazole-trimethoprim (BACTRIM D S) 800-160 mg per tablet Take 1 tablet by mouth once daily for 10 days. 10 tablet 11/16/2024 11/26/2024 Active vancomycin (Vancocin) 1,000 mg in sodium chloride 0.9 % 250 mL IVPB (2 sources) Start: 01-19-2024 End: 01-19-2024 1,000 mg, IntraVENous, at 16 6.7 mL/hr, Administer over 90 Minutes, Once, On Sat01/19/24 at 0745, For 1 dose, ADD-Ebony bag, Suspected Indication (Select all that apply): Surgical Prophylaxis Problems Active Problems Problem Classification Problem Date Documented Da te Episodic/Chronic Cardiac dysrhythmias (20 sources) Sick sinus syndrome; Translations: [Sick sinus syndrome] Onset: 5 09-16-2024 Chronic Chronic kidney disease (20 sources) End stage renal failure on dialysis; Translations: [End stage renal disease] Onset: 5 08-12-2024 Chronic Chronic ulcer of skin (1 source) Non-pressure chronic ulcer of unspecified part of left lower leg with fat layer exposed; Translations: [Ulcer of left lower leg, with fat layer exposed (HCC)] Onset: 5 Chronic Conduction disorders (20 sources) Encounter for adjustment and management of other cardiac device; Translations: [H/O: cardiac pacemaker in situ] Onset: 4 Chronic Coronary atherosclerosis and other heart disease (15 sources) Coronary arteriosclerosis; Translations: [Atherosclerotic heart disease of [place] coronary artery without angina pectoris] Onset: 5 09-23-2024 Chronic Comment on above: Arsenio Archer JANNY 2. 0 X 18 mm to Proximal D1, and Arsenio Archer JANNY 2.0 X 8 mm to Proximal Ramus 09/22/2024 Coronary atherosclerosis and other heart disease (14 sources) Stented coronary artery; Translations: [Presence of coronary angioplasty implant and graft] Onset: 5 09-28-2024 Episodic Comment on above: Arsenio Archer JANNY 2. 0 X 18 mm to Proximal D1, and Arsenio Archer JANNY 2.0 X 8 mm to Proximal Ramus 09/22/2024 Diabetes mellitus with complications (20 sources) Polyneuropathy due to type 1 diabetes mellitus; Translations: [Type 1 diabetes mellitus with diabetic polyneuropathy] Onset: 5 08-12-2024 Chronic Diabetes mellitus without complication (20 sources) Diabetes mellitus; Translations: [Type 2 diabetes mellitus without complications] Onset: 5 09-16-2024 Chronic Disorders of lipid metabolism (20 sources) Dyslipidemia; Translations: [Hyperlipidemia, unspecified] Onset: 5 09-16-2024 Chronic Comment on above: ON MED Essential hypertension (20 sources) Essential hypertension; Translations: [Essential (primary) hypertension] Onset: 5 09-08-2024 Chronic Comment on above: CONTROLLED WITH MED Malaise and fatigue (7 sources) Asthenia; Translations: [Weakness] 09-08-2024 Episodic Nutritional deficiencies (7 sources) Vitamin D deficiency; Translations: [Vitamin D deficiency, unspecified] 09-08-2024 Chronic Other circulatory disease (15 sources) Low blood pressure; Translations: [Hypotension, unspecified] 01-25-2024 Episodic Other endocrine disorders (7 sources) Hyperparathyroidism; Translations: [Hyperparathyroidism, unspecified] 09-08-2024 Chronic Other gastrointestinal disorders (8 sources) Stool DNA-based colorectal cancer screening positive; Translations: [Other fecal abnormalities] 10-05-2023 Episodic Comment on above: Patient is a 72-year -old male who presents following positive Cologuard testing but without overt signs of gastrointestinal bleeding. Moreover, there is a history of iron deficiency anemia that has never been followed by endoscopic evaluation. Based on these features of patient's history and his reports of constipation, I find compelling reason to recommend diagnostic colonoscopy. Patient's son's girlfriend expresses concern about his risk for cancer and I have taken time to lay out the significance of his findings to date. For his part, patient does not appear in any distress and expresses comfort with the recommendation. 2-day bowel prep was described alongside other instructions for the procedure. Other injuries and conditions due to external causes (2 sources) Injury of left ankle; Translations: [Unspecified injury of left ankle, initial encounter] 07-27-2024 Episodic Other injuries and conditions due to external causes (2 sources) Injury of left foot; Translations: [Unspecified injury of left foot, initial encounter] 07-27-2024 Episodic Other injuries and conditions due to external causes (1 source) Unspecified injury of left ankle, initial encounter; Translations: [Injury of left ankle, initial encounter] Onset: 5 Episodic Other injuries and conditions due to external causes (1 source) Unspecified injury of left foot, initial encounter; Translations: [Foot injury, left, initial encounter] Onset: Episodic Other non-traumatic joint disorders (2 sources) Acute ankle pain; Translations: [Pain in left ankle and joints of left foot] 08-12-2024 Episodic Residual codes; unclassified (12 sources) Postoperative state; Translations: [Other specified postprocedural states] 08-28-2024 Episodic Residual codes; unclassified (7 sources) Non-smoker; Translations: [Other specified health status] 09-08-2024 Episodic Residual codes; unclassified (7 sources) Edema; Translations: [Edema, unspecified] 09-08-2024 Episodic Residual codes; unclassified (1 source) Localized edema; Translations: [Localized edema] 12-25-2024 Episodic Residual codes; unclassified (1 source) Localized edema; Translations: [Localized edema] Onset: Episodic Syncope (7 sources) Near syncope; Translations: [Syncope and collapse] 09-08-2024 Episodic Past or Other Problems Problem Classification Problem Date Documented Date Episodic/Chronic Cardiac dysrhythmias (20 sources) Bradycardia; Translations: [Bradycardia, unspecified] Onset: 01-17-2024 01-17-2024 Episodic Comment on above: Junctional Rhythm, s /p PPM Fracture of lower limb (20 sources) Closed fracture of distal left fibula; Translations: [Other fracture of upper and lower end of left fibula, initial encounter for closed fracture] Onset: 08-10-2024 07-27-2024 Episodic Other non-traumatic joint disorders (1 source) Pain in left ankle and joints of left foot; Translations: [Acute left ankle pain] Onset: 08-12-2024 Episodic Other screening for suspected conditions (not mental disorders or infectious disease) (16 sources) Cardiovascular stress test abnormal; Translations: [Abnormal result of other cardiovascular function study] Onset: 10-16-2024 09-16-2024 Episodic Residual codes; unclassified (1 source) Other specified postprocedural states; Translations: [Post-operative state] Onset: 08-28-2024 Episodic Unclassified (2 sources) Closed fracture of distal left fibula 07-27-2024 Unclassified (2 sources) Injury of left foot 07-27-2024 Unclassified (2 sources) Injury of left ankle 07-27-2024 Unclassified (5 sources) Closed trimalleolar fracture of left ankle 09-04-2024 Results Test Name Value Interpretation Reference Range Facility Stress Reporton 03-24-2025 Stress Report [facility] [address] [place] [address] MR#: [id number] Acct: [id number] Name: NOÉ PINO Rep #: [id number] : 1950 74 From: Apryl Mathew MD Primary Care: Dr. Allen Jackson MD Status: REG CLI Referring Dr: Bola Mcadams TAPE DUPLICATOR TAPE DUPLICATOR-C Sex: M H Stress Test Report Date: 03/24/2025 Procedure: Pharmacologic stress nuclear imaging study Indications: Coronary artery disease Consent: Per the patient Procedure: The patient underwent pharmacologic (Regadenoson 0.4mg ) evaluation with a peak heart rate of 80 beats per minute (54%predicted maximal heart rate) and a peak blood pressure of 152/78 mmHg. The baseline ECG demonstrated sinus rhythm with nonspecific ST changes. The peak pharmacologic ECG was nondiagnostic secondary to baseline abnormality. There were no cardiac dysrhythmias pretest, during pharmacologic infusion, or recovery. There was no complaint of chest discomfort during pharmacologic infusion or recovery. The patient was injected with 11.3 millicuries of technetium 99m Cardiolite and subsequently rest SPECT Cardiolite nuclear imaging was obtained in the horizontal long, vertical long, and short axis views. The patient underwent pharmacologic (Regadenoson) evaluation. The patient was injected with 33.7 millicuries of technetium 99m Cardiolite and subsequently stress SPECT Cardiolite nuclear imaging was obtained in the horizontal long, vertical long, and short axis views. A gated Cardiolite study at peak stress was obtained. The examination was stopped secondary to completion of protocol. Rest and stress SPECT Cardiolite nuclear imaging status post realignment, normalization, and attenuation correction demonstrate no fixed or reversible perfusion defects. There is end systolic thickening and brightening. The gated Cardiolite study demonstrates myocardial thickening and inward wall motion. The reported LVEF is 59%. Impression: 1. Pharmacologic (Regadenoson) evaluation 2. Peak pharmacologic ECG was nondiagnostic secondary to baseline abnormalities. 3. There were no cardiac dysrhythmias pretest, during pharmacologic infusion, or recovery. 5. Rest and stress SPECT Cardiolite nuclear imaging demonstrate relative uniform tracer uptake and myocardial perfusion appearing within normal limits. 6. The gated Cardiolite study reports an LVEF of 59%. This note was generated with [employer] software. It may contain incorrect words, spelling, and punctuation that were not noted in checking the note before signing. 03/24/25 142 Date Apryl Mathew MD CC: RANDOLPH Mcadams; Dr. Allen Jackson MD Date Dictated: 03/24/251421 Date Transcribed: 03/24/251421 Ledge Man: TC Signed [facility] CNOVon 03-19-2025 [facility] Office Visit (AGPOB1) NOÉ PINO ([id number]) 1950 [facility] Date Time Provider Department 03/19/25 2:00 PM [facility] During your visit today, we recorded the following information about you: Respiration Weight Height 18/minute 71.7 kg 1.727 m Alexandr Rodarte Tech 03/20/2025 11:18 AM Signed REVIEW OF SYSTEMS: GENERAL: Well developed, well nourished. No acute distress PAIN: Negative for pain, history of chronic pain or current treatment for chronic pain conditions CARDIOVASCULAR: HTN MSK: Negative for joint swelling SKIN: Itching has intermittent b/l arm itching NEURO: Negative for seizure, trauma, numbness/tingling of extremities. ENDOCRINE: Positive for diabetic associated symptoms HEMATOLOGY: Negative for excessive bleeding, clots, bleeding disorders. Kali Gibson DPM 03/20/2025 11:18 AM Signed DOS: 08/21/24 Procedure: S/p ORIF left ankle fracture Noé Hughes is a 74-year-old male with DM and CKD presenting for follow-up of a wound on his left leg. A pigment pumper was used in this visit. ID number: [id number]. Noé reports decreased drainage from the wound and only occasional mild pain. He has been applying the prescribed ointment as directed, santyl. Denies any current nausea, vomiting, fever, chills, shortness of breath, chest pain or calf pain. PAST MEDICAL HISTORY Diagnosis Date Abnormal stress test Ankle fracture 07/2024 left CKD (chronic kidney disease), stage IV (HCC) Diabetes mellitus (HCC) Type 1 Diabetic polyneuropathy (HCC) Essential hypertension Hypercholesteremia Hyperparathyroidism (HCC) Hypotension Known medical problems peritoneal dialysis Known medical problems edema Known medical problems hyperlipidemia Pacemaker 01/2024 Summa placed for sick sinus syndrome Vitamin D deficiency Current Outpatient Medications Medication Sig collagenase (SANTYL) ointment Apply to affected area once daily. ulceration ammonium lactate (LAC-HYDRIN) 12 % cream Apply to affected area as needed for dry skin. mupirocin (BACTROBAN) 2 % ointment Apply to affected area once daily. atorvastatin (LIPITOR) 20 mg tablet Take 20 mg by mouth. TRIPHROCAPS 1 mg capsule Take 1 capsule by mouth once daily. calcitriol (ROCALTROL) 0.5 mcg capsule Take 0.5 mcg by mouth. docusate sodium (COLACE) 100 mg capsule Take 100 mg by mouth. felodipine ER (PLENDIL) 10 mg 24 hr tablet Take 10 mg by mouth. fenofibrate (LOFIBRA) 200 mg capsule Take 200 mg by mouth. ferrous sulfate 325 mg (65 mg iron) tablet Take 325 mg by mouth. gabapentin (NEURONTIN) 100 mg capsule Take 1 capsule by mouth. gentamicin 0.1% 0.1 % cream Apply to affected area. LANTUS SOLOSTAR U-100 INSULIN 100 unit/mL (3 mL) lactulose 10 gram/15 mL solution Take 20 g by mouth. metoprolol succinate ER (TOPROL XL) 50 mg 24 hr tablet Take 1 tablet by mouth once daily. pantoprazole DR (PROTONIX) 20 mg tablet Take 40 mg by mouth. sevelamer carbonate (RENVELA) 800 mg tablet Take 1,600 mg by mouth. No current facility-administere d medications for this visit. ALLERGIES No Known Allergies Objective: Patient presents full WB in athletic shoes Pt visit completed with aid of bolivian interpretor. Problem focus examination to the left lower extremity: Incision site is well healed. Area of previous pin point opening is remains well healed. No erythema or purulent drainage noted. Mild scaling skin to the lateral ankle. Mild edema surrounding surgical site. No lymphadenopathy. No lymphangitis. No surrounding cellulitis. Ulceration noted to anterior aspect of the left leg which measures 0.8cmx 0.4cm x 0.1cm. Base appears mixed granular/fibrotic. No erythema, purulence, increased warmth or malodor noted. Minimal pain to palpation of the surgical site lateral ankle. No pain medially or anteriorly. Patient has no pain to palpation of calf. The calf is soft, supple and nontender without evidence of DVT. Negative Joyce's test. Satisfactory alignment is noted. Pedal pulses are palpable. Capillary refill time is less than three seconds to all digits. Protective sensation is absent to all pedal sites. Assessment: Left leg ulcer S/p ORIF left ankle fractures DM with neuropathy CKD on dialysis Plan: The patient was educated on clinical examination findings, postoperative prognosis and protocol. All questions were answered to patient's apparent satisfaction. Chronic left lower leg ulcer is improving, now measuring 8 mm x 4 mm (previously 1 cm x 0.9 cm); no signs of infection. Healing is slower due to underlying diabetes and CKD V on dialysis, but progress is satisfactory. - Continue applying Santyl ointment once daily and cover with a bandage. - Educated patient on signs of infection (odor, purulent drainage, erythema, swelling, increased pain) and instructed to call immediatel (more content not included)... Normal [facility] Cardiology Visit Reporton Cardiology Visit Report [facility] [place] [id number] [facility] [place] [address] OFFICE VISIT Date of Service: 03/18/25 MR#: [id number] Acct: [id number] Name: NOÉ PINO Rep #: [id number] : 1950 Provider: RANDOLPH lim Age/Sex: 74/M [place] [facility] [place] Status: Signed HPI HPI History of Present Illness Details: This pleasant gentleman has past medical history significant for diabetes mellitus, end-stage renal disease on peritoneal dialysis, sick sinus syndrome status post permanent pacemaker placement and hypertension. He has had a Lexiscan stress Myoview done as part of his preop workup for putting him on the renal transplant list. It is been reported back as abnormal. Subsequently he is here for further evaluation and management. He had heart catheterization on 09/22/2024 that resulted in drug- eluting stent to proximal diagonal 1 and proximal ramus. Medical therapy for proximal OM 1 was recommended. Interpreting service utilized via phone today. He denies chest, arm, jaw, or neck discomfort. He states palpitations that he describes as pounding. He denies bilateral lower extremity edema. He denies claudication. He denies shortness of breath with activity, shortness of breath at rest, orthopnea, or PND. He denies chronic cough. He denies significant, sudden weight gain. He states lightheadedness. He denies dizziness, near-syncope, or syncope. He denies blood in urine, blood in stool, or epistaxis. He denies fever with chills. He denies myalgia. He denies fatigue. His exercise level has remained stable. He notes system ithcing over the last three weeks. He has not tried OTC medications to help. Intake Vital Signs 12/30/24 09:20 03/18/25 07:12 Height 5 ft 7 in 5 ft 7 in Weight: 153 lb 158 lb BMI 23.9 24.7 BP 116/64 144/75 H Blood Pressure Location Lt brachial Rt brachial Position Sitting Sitting Respiration 16 18 Pulse 64 82 Pulse Source NIBP Monitor Pulse Oximetry (%) 100 Intake Visit Reasons: NEEDS STRESS TEST FOR KIDNEY [employer]ANS[employer] Required: Yes Is patient in pain?: No Allergies No Known Allergies Allergy (Verified 12/30/24 10:00) Medications ???Medication ???Instructions ???Recorded ???Confirmed ???Type calcitriol 0.25 mcg capsule 0.25 mcg PO DAILY 10/04/23 5 History insulin glargine 100 unit/mL (3 25 unit subcut QAM 10/04/23 History mL) subcutaneous pen (Lantus Solostar U-100 Insulin) sevelamer carbonate 800 mg tablet 1,600 mg PO TID 10/04/23 03/18/25 History vitamin B complex and vitamin C 1 cap PO DAILY 10/04/23 12/30/24 H istory no.20-folic acid 1 mg capsule (Triphrocaps) gabapentin 100 mg capsule 100 mg PO QHS 09/08/24 03/18/25 Hi story aspirin 81 mg tablet,delayed 81 mg PO QDAY #90 tabs 09/16/24 Rx release (Adult Aspirin Regimen) carvedilol 3.125 mg tablet 3.125 mg PO BID #60 tabs 09/22/24 03/18/25 Rx clopidogrel 75 mg tablet 75 mg PO DAILY #30 tabs 12/30/24 1 Rx felodipine 10 mg tablet,extended 10 mg PO QDAY 12/30/24 03/18/25 Hi story release 24 hr fenofibrate micronized 200 mg 200 mg PO QDAY 12/30/24 03/18/25 H istory capsule atorvastatin 20 mg tablet (Lipitor) 20 mg PO QDAY 03/18/25 03/18/25 History prednisone 20 mg tablet 40 mg (2 x 20 mg) PO QDAY 5 days 1 03/18/25 Rx #10 tabs vitamin B complex and vitamin C 1 cap PO QDAY 03/18/25 03/18/25 Hi story no.20-folic acid 1 mg capsule (Triphrocaps) Ejection fraction %: 50 Have you fallen in the past year?: No PFSH Medical History Edema, unspecified Vitamin D deficiency, unspecified Proteinuria due to type 2 diabetes mellitus Weakness Hypotension Near syncope Bradycardia History of pacemaker End stage renal disease on dialysis Sick sinus syndrome Type 2 diabetes mellitus with hyperglycemia Hyperparathyroidism Hyperlipidemia, unspecified Diabetic polyneuropathy Abdominal fistula Hypercholesteremia Essential hypertension Presence of permanent cardiac pacemaker Wears glasses Insulin dependent diabetes mellitus Anemia High cholesterol Dietary restriction Gastric reflux Non-smoker Hypertension History of peritoneal dialysis End stage chronic kidney disease Positive colorectal cancer screening using Cologuard test Surgical History History of ankle surgery Stented coronary artery (09/22/24) History of cataract surgery Family History Brother Diabetes Father Diabetes Social History Smoking Status: Never smoker alcohol intake: never substance use type: does not use ROS Const C (more content not included)... [facility] 02-26-2025 [facility] Office Visit (AGPOB1) NOÉ PINO ([id number]) 1950 [facility] Date Time Provider Department 02/26/25 9:15 AM KALI GIBSON AGPOB1 During your visit today, we recorded the following information about you: Respiration Weight Height 20/minute 67.1 kg 1.727 m Kali Gibson DPM 02/26/2025 7:24 PM Signed DOS: 08/21/24 Procedure: S/p ORIF left ankle fracture Noé Hughes is a 74-year-old male with a history of diabetes, CKD on dialysis, and neuropathy, presenting for new complaint of left leg wound. A pigment pumper was used for this visit (ID: [id number]). Noé reports a leg wound sustained 2 weeks ago. Ran into shopping cart. He has been applying a cream prescribed by his doctor. He denies nausea, vomiting, fever, or chills. He reports his blood sugars have been stable. He also reports developing skin lesions on his forehead and near a prior surgical site after taking a medication that advised avoiding sun exposure. Denies any current nausea, vomiting, fever, chills, shortness of breath, chest pain or calf pain. PAST MEDICAL HISTORY Diagnosis Date Abnormal stress test Ankle fracture 07/2024 left CKD (chronic kidney disease), stage IV (HCC) Diabetes mellitus (HCC) Type 1 Diabetic polyneuropathy (HCC) Essential hypertension Hypercholesteremia Hyperparathyroidism (HCC) Hypotension Known medical problems peritoneal dialysis Known medical problems edema Known medical problems hyperlipidemia Pacemaker 01/2024 Summa placed for sick sinus syndrome Vitamin D deficiency Current Outpatient Medications Medication Sig mupirocin (BACTROBAN) 2 % ointment Apply to affected area once daily. atorvastatin (LIPITOR) 20 mg tablet Take 20 mg by mouth. TRIPHROCAPS 1 mg capsule Take 1 capsule by mouth once daily. calcitriol (ROCALTROL) 0.5 mcg capsule Take 0.5 mcg by mouth. docusate sodium (COLACE) 100 mg capsule Take 100 mg by mouth. felodipine ER (PLENDIL) 10 mg 24 hr tablet Take 10 mg by mouth. fenofibrate (LOFIBRA) 200 mg capsule Take 200 mg by mouth. ferrous sulfate 325 mg (65 mg iron) tablet Take 325 mg by mouth. gabapentin (NEURONTIN) 100 mg capsule Take 1 capsule by mouth. gentamicin 0.1% 0.1 % cream Apply to affected area. LANTUS SOLOSTAR U-100 INSULIN 100 unit/mL (3 mL) lactulose 10 gram/15 mL solution Take 20 g by mouth. metoprolol succinate ER (TOPROL XL) 50 mg 24 hr tablet Take 1 tablet by mouth once daily. pantoprazole DR (PROTONIX) 20 mg tablet Take 40 mg by mouth. sevelamer carbonate (RENVELA) 800 mg tablet Take 1,600 mg by mouth. No current facility-administere d medications for this visit. ALLERGIES No Known Allergies Objective: Patient presents full WB in athletic shoes Pt visit completed with aid of bolivian interpretor. Problem focus examination to the left lower extremity: Incision site is well healed. Area of previous pin point opening is remains well healed. No erythema or purulent drainage noted. Mild scaling skin to the lateral ankle. Mild edema surrounding surgical site. No lymphadenopathy. No lymphangitis. No surrounding cellulitis. Ulceration noted to anterior aspect of the left leg which measures 1.0cm x 0.9cm x 0.1cm. Base appears fibrotic. No erythema, purulence, increased warmth or malodor noted. Minimal pain to palpation of the surgical site lateral ankle. No pain medially or anteriorly. Patient has no pain to palpation of calf. The calf is soft, supple and nontender without evidence of DVT. Negative Joyce's test. Satisfactory alignment is noted. Pedal pulses are palpable. Capillary refill time is less than three seconds to all digits. Protective sensation is absent to all pedal sites. Assessment: S/p ORIF left ankle fractures DM with neuropathy CKD on dialysis Plan: The patient was educated on clinical examination findings, postoperative prognosis and protocol. All questions were answered to patient's apparent satisfaction. Ulcer on the left lower leg, measuring 1 cm x 0.9 cm x 0.1 cm, with yellow tissue at the base; no signs of infection. - Debridement performed to the left leg ulceration using 15 blade including subcutaneous tissue with removal of fibrotic tissue. Measurements as noted above. Antibiotic ointment and DSD applied today. - Start Santyl ointment (enzymatic debrider); apply a layer approximately the thickness of a nickel to the wound bed and cover with a bandage. - Advised patient to notify if Santyl is not covered by insurance due to potential high cost; will prescribe an alternative if needed. - Apply moisturizing cream to surrounding skin to address dryness. - Educated on signs of infection (redness, swelling, foul odor, pus drainage) and instructed to call immediately if these occur. - Follow-up in 2-3 weeks to reassess wound healing. Kali Gibson DPM Allergies As of Date (more content not included)... Normal [facility] Cardiology Visit Reporton Cardiology Visit Report [facility] [address] [place] [address] OFFICE VISIT Date of Service: 12/30/24 MR#: [id number] Acct: [id number] Name: NOÉ PINO Rep #: [id number] : 1950 Provider: RANDOLPH lim Age/Sex: 74/M [place] [facility] [place] Status: Signed HPI HPI History of Present Illness Details: This pleasant gentleman has past medical history significant for diabetes mellitus, end-stage renal disease on peritoneal dialysis, sick sinus syndrome status post permanent pacemaker placement and hypertension. He has had a Lexiscan stress Myoview done as part of his preop workup for putting him on the renal transplant list. It is been reported back as abnormal. Subsequently he is here for further evaluation and management. He had heart catheterization on 09/22/2024 that resulted in drug- eluting stent to proximal diagonal 1 and proximal ramus. Medical therapy for proximal OM 1 was recommended. Interpreting service utilized via phone today. He denies chest, arm, jaw, or neck discomfort. He states palpitations that he describes as pounding. He denies bilateral lower extremity edema. He denies claudication. He denies shortness of breath with activity, shortness of breath at rest, orthopnea, or PND. He denies chronic cough. He denies significant, sudden weight gain. He states lightheadedness. He denies dizziness, near-syncope, or syncope. He denies blood in urine, blood in stool, or epistaxis. He denies fever with chills. He denies myalgia. He denies fatigue. His exercise level has remained stable. 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 [employer] Language: [place] Island[place] Accompanied by: Son Is patient in pain?: No Allergies No Known Allergies Allergy (Verified 12/30/24 10:00) Medications ???Medication ???Instructions ???Recorded ???Confirmed ???Type calcitriol 0.25 mcg capsule 0.25 mcg PO DAILY 10/04/23 5 History insulin glargine 100 unit/mL (3 25 unit subcut QAM 10/04/23 History mL) subcutaneous pen (Lantus Solostar U-100 Insulin) sevelamer carbonate 800 mg tablet 1,600 mg PO TID 10/04/23 12/30/24 History vitamin B complex and vitamin C 1 cap PO DAILY 10/04/23 12/30/24 H istory no.20-folic acid 1 mg capsule (Triphrocaps) gabapentin 100 mg capsule 100 mg PO QHS 09/08/24 12/30/24 Hi story nifedipine 60 mg tablet,extended 60 mg PO BID 09/08/24 12/30/24 His tory release 24 hr aspirin 81 mg tablet,delayed 81 mg PO QDAY #90 tabs 09/16/24 Rx release (Adult Aspirin Regimen) pantoprazole 40 mg tablet,delayed 40 mg PO QDAY 09/16/24 12/30/24 H istory release carvedilol 3.125 mg tablet 3.125 mg PO BID #60 tabs 09/22/24 12/30/24 Rx clopidogrel 75 mg tablet 75 mg PO DAILY #30 tabs 12/30/24 0 12/30/24 Rx felodipine 10 mg tablet,extended 10 mg PO QDAY 12/30/24 12/30/24 Hi story release 24 hr fenofibrate micronized 200 mg 200 mg PO QDAY 12/30/24 12/30/24 H istory capsule Ejection fraction %: 54 Have you fallen in the past year?: Yes PFSH Medical History Edema, unspecified Vitamin D deficiency, unspecified Proteinuria due to type 2 diabetes mellitus Weakness Hypotension Near syncope Bradycardia History of pacemaker End stage renal disease on dialysis Sick sinus syndrome Type 2 diabetes mellitus with hyperglycemia Hyperparathyroidism Hyperlipidemia, unspecified Diabetic polyneuropathy Abdominal fistula Hypercholesteremia Essential hypertension Presence of permanent cardiac pacemaker Wears glasses Insulin dependent diabetes mellitus Anemia High cholesterol Dietary restriction Gastric reflux Non-smoker Hypertension History of peritoneal dialysis End stage chronic kidney disease Positive colorectal cancer screening using Cologuard test Surgical History History of ankle surgery Stented coronary artery (09/22/24) History of cataract surgery Family History Brother Diabetes Father Diabetes Social History Smoking Status: Never smoker alcohol intake: never substance use type: does not use ROS Const Const: Negative for fatigue or weakness Eyes Eyes: Negative for change in vision ENT ENT: Negative for dizziness or balance problems Cardio Chest Pain: No Palpitations: No Edema: None Muscle aches with walking: (more content not included)... Normal [facility] XR Ankle - left AP and Later al and obliqueon 12-27-2024 Radiology Study observation (narrative) [facility] Office Visit (AGPOB1) NOÉ PINO ([id number]) 1950 [facility] Date Time Provider Department 12/25/24 11:00 AM KALI GIBSON AGPOB1 During your visit today, we recorded the following information about you: Respiration Weight Height 18/minute 67.1 kg 1.727 m Kali Gibson DPM 12/27/2024 8:58 PM Signed DOS: 08/21/24 POD: 18 weeks POV: 7 Procedure: S/p ORIF left ankle fracture Noé Hughes is a 74-year-old male with a history of diabetes, CKD on dialysis, and neuropathy, presenting for follow-up left ankle. Patient states that has been doing well. States that has not had any drainage from the area any longer. Minimal discomfort to the ankle. No new concerns. Denies any current nausea, vomiting, fever, chills, shortness of breath, chest pain or calf pain. PAST MEDICAL HISTORY Diagnosis Date Abnormal stress test Ankle fracture 07/2024 left CKD (chronic kidney disease), stage IV (HCC) Diabetes mellitus (HCC) Type 1 Diabetic polyneuropathy (HCC) Essential hypertension Hypercholesteremia Hyperparathyroidism (HCC) Hypotension Known medical problems peritoneal dialysis Known medical problems edema Known medical problems hyperlipidemia Pacemaker 01/2024 Summa placed for sick sinus syndrome Vitamin D deficiency Current Outpatient Medications Medication Sig sulfamethoxazole-tri methoprim (BACTRIM DS) 800-160 mg per tablet Take 1 tablet by mouth once daily for 21 days. mupirocin (BACTROBAN) 2 % ointment Apply to affected area once daily. atorvastatin (LIPITOR) 20 mg tablet Take 20 mg by mouth. TRIPHROCAPS 1 mg capsule Take 1 capsule by mouth once daily. calcitriol (ROCALTROL) 0.5 mcg capsule Take 0.5 mcg by mouth. docusate sodium (COLACE) 100 mg capsule Take 100 mg by mouth. felodipine ER (PLENDIL) 10 mg 24 hr tablet Take 10 mg by mouth. fenofibrate (LOFIBRA) 200 mg capsule Take 200 mg by mouth. ferrous sulfate 325 mg (65 mg iron) tablet Take 325 mg by mouth. gabapentin (NEURONTIN) 100 mg capsule Take 1 capsule by mouth. gentamicin 0.1% 0.1 % cream Apply to affected area. LANTUS SOLOSTAR U-100 INSULIN 100 unit/mL (3 mL) lactulose 10 gram/15 mL solution Take 20 g by mouth. metoprolol succinate ER (TOPROL XL) 50 mg 24 hr tablet Take 1 tablet by mouth once daily. pantoprazole DR (PROTONIX) 20 mg tablet Take 40 mg by mouth. sevelamer carbonate (RENVELA) 800 mg tablet Take 1,600 mg by mouth. No current facility-administere d medications for this visit. ALLERGIES No Known Allergies Objective: Patient presents full WB in athletic shoes Pt visit completed with aid of bolivian interpretor. Problem focus examination to the left lower extremity: Incision site is well healed. Area of previous pin point opening is now healed. No erythema or purulent drainage noted. Mild edema surrounding surgical site. No lymphadenopathy. No lymphangitis. No surrounding cellulitis. Minimal pain to palpation of the surgical site lateral ankle. No pain medially or anteriorly. Patient has no pain to palpation of calf. The calf is soft, supple and nontender without evidence of DVT. Negative Joyce's test. Satisfactory alignment is noted. Pedal pulses are palpable. Capillary refill time is less than three seconds to all digits. Protective sensation is absent to all pedal sites. Radiographs: 3 views left ankle were obtained and evaluated. Radiographic evaluation: Evidence of previous ORIF left ankle fracture with increased trabeculation noted across the fracture. Alignment maintained. Hardware intact without breakage. Mild lucency around syndesmotic screws consistent with expected postoperative changes which appears unchanged from previous xrays. No lucency noted around remaining screws. Ankle mortise WNL. Fibula out to length. Vascular calcifications noted. Cultures: MRSA Assessment: S/p ORIF left ankle fractures DM with neuropathy CKD on dialysis Plan: The patient was educated on clinical examination findings, postoperative prognosis and protocol. All questions were answered to patient's apparent satisfaction. Patient doing well. Small pinpoint incision is now closed. No openings noted. Patient doing very well. Low impact activity as tolerated. Monitoring for signs/symptoms of infection. Follow up in 2 months or sooner with any problems or concerns. Kali Gibson DPM Allergies As of Date: 12/25/2024 (No Known Allergies) Date Reviewed: 12/25/2024 Reviewed by: Kali Gibson DPM - Fully Assessed Reason for Visit: Established Patient [175] Pain [78] Primary Visit Diagnosis:Post-opera tive state [Z98.890] Other Visit Diagnoses:Trimalleol ar fracture of ankle, closed, left, initial encounter [S82.862A] Type 1 diabetes mellitus with diabetic polyneuropathy (HCC) [E10.42] Localized edema [R60.0] Order(s):XR ANKLE GENERAL 3V AP/LAT/OBL LEFT (more content not included)... Normal [facility] XR Ankle - left AP and Later al and obliqueon 12-24-2024 [facility] Bilirubin directon 5 Bilirubin.direct [Mass/Vol] 0.09 mg/dL 0.00-0.30 [facility] Comment on above: Hemolysis present, R esults could be affected. Bilirubin, totalon 5 Bilirubin [Mass/Vol] 0.25 mg/dL 0.00-1.30 [facility] Laboratory - Chemistry and C hemistry - challengeon 12-14-2024 AST [Catalytic activity/Vol] 51 U/L High <38 [facility] Comment on above: Hemolysis present, R esults could be affected. Liver Profileon 12-14-2024 Albumin [Mass/Vol] 4.1 g/dL Normal 3.4-4.8 [facility] Comment on above: Performed By: #### L 500.4050, L501.9520, L100.0100 #### [facility] [address] [place], [address] ALK PHOS 42 U/L Normal 40-129 [facility] Comment on above: Performed By: #### L 500.4050, L501.9520, L100.0100 #### [facility] [address] [place], [address] ALT [Catalytic activity/Vol] 31 U/L Normal <=46 [facility] Comment on above: Performed By: #### L 500.4050, [id number], L100.0100 #### [facility] [address] [place], [address] AST [Catalytic activity/Vol] 51 U/L High <=37 [facility] Comment on above: Result Comment: Hemo lysis present, Results??could be affected. ?? Performed By: #### L 500.4050, L501.9520, L100.0100 #### [facility] [address] [place], [address] Bilirubin [Mass/Vol] 0.25 mg/dL Normal 0.00-1.30 [facility] Comment on above: Performed By: #### L 500.4050, L501.9520, L100.0100 #### [facility] [address] [place], [address] Bilirubin.direct [Mass/Vol] 0.09 mg/dL Normal 0.00-0.30 [facility] Comment on above: Result Comment: Hemo lysis present, Results??could be affected. ?? Performed By: #### L 500.4050, L501.9520, L100.0100 #### [facility] [address] [place], [address] Globulin (S) [Mass/Vol] 2.6 g/dL Normal 2.2-4.2 [facility] Comment on above: Performed By: #### L 500.4050, L501.9520, L100.0100 #### [facility] [address] [place], [address] T PROT 6.7 g/dL Normal 5.9-8.4 [facility] Comment on above: Performed By: #### L 500.4050, L501.9520, L100.0100 #### [facility] [address] [place], [address] Serum globulin measurementon 12-14-2024 Globulin (S) [Mass/Vol] 2.6 g/dL 2.2-4.2 [facility] Serum or plasma alanine south otransferase (ALT) measurementon 12-14-2024 ALT [Catalytic activity/Vol] 31 U/L <47 [facility] Serum or plasma albumin ian urement (mass/volume)on 12-14-2024 Albumin [Mass/Vol] 4.1 g/dL 3.4-4.8 [facility] Serum or plasma alkaline dre sphatase measurementon 12-14-2024 ALP [Catalytic activity/Vol] 42 U/L 40-129 [facility] Total proteinon 12-14-2024 Protein [Mass/Vol] 6.7 g/dL 5.9-8.4 [facility] CNOVon 12-04-2024 CNOV Office Visit (AGPOB1) JOSH HUGHESNOÉ ([id number]) 1950 M [facility] [place] Date Time Provider Department 12/04/24 3:00 PM KALI GIBSON POB1 During your visit today, we recorded the following information about you: Respiration Weight Height 16/minute 67.1 kg 1.727 m Kali Gibson DPM 12/05/2024 12:00 AM Signed DOS: 08/21/24 POD: 15 weeks POV: 6 Procedure: S/p ORIF left ankle fracture Noé Hughes is a 74-year-old male with a history of diabetes, CKD on dialysis, and neuropathy, presenting for follow-up on a toe injury and persistent wound drainage. Noé reports a toe injury sustained approximately 1 month ago when attempting to open a door, resulting in the toenail being ripped off. He denies applying any topical treatments to the toe since the injury. Patient states that believes his wound is healed. He completed a course of antibiotics prescribed and denies any current pain at the wound site. Noé also notes bilateral pedal edema. He denies any changes in his dialysis regimen and reports that the same amount of fluid is being removed during sessions. He has been walking for 40 minutes on 4 days this week without issue. Denies any current nausea, vomiting, fever, chills, shortness of breath, chest pain or calf pain. PAST MEDICAL HISTORY Diagnosis Date Abnormal stress test Ankle fracture 07/2024 left CKD (chronic kidney disease), stage IV (HCC) Diabetes mellitus (HCC) Type 1 Diabetic polyneuropathy (HCC) Essential hypertension Hypercholesteremia Hyperparathyroidism (HCC) Hypotension Known medical problems peritoneal dialysis Known medical problems edema Known medical problems hyperlipidemia Pacemaker 01/2024 Summa placed for sick sinus syndrome Vitamin D deficiency Current Outpatient Medications Medication Sig atorvastatin (LIPITOR) 20 mg tablet Take 20 mg by mouth. TRIPHROCAPS 1 mg capsule Take 1 capsule by mouth once daily. calcitriol (ROCALTROL) 0.5 mcg capsule Take 0.5 mcg by mouth. docusate sodium (COLACE) 100 mg capsule Take 100 mg by mouth. felodipine ER (PLENDIL) 10 mg 24 hr tablet Take 10 mg by mouth. fenofibrate (LOFIBRA) 200 mg capsule Take 200 mg by mouth. ferrous sulfate 325 mg (65 mg iron) tablet Take 325 mg by mouth. gabapentin (NEURONTIN) 100 mg capsule Take 1 capsule by mouth. gentamicin 0.1% 0.1 % cream Apply to affected area. LANTUS SOLOSTAR U-100 INSULIN 100 unit/mL (3 mL) lactulose 10 gram/15 mL solution Take 20 g by mouth. metoprolol succinate ER (TOPROL XL) 50 mg 24 hr tablet Take 1 tablet by mouth once daily. pantoprazole DR (PROTONIX) 20 mg tablet Take 40 mg by mouth. sevelamer carbonate (RENVELA) 800 mg tablet Take 1,600 mg by mouth. No current facility-administere d medications for this visit. ALLERGIES No Known Allergies Objective: Patient presents full WB in [facility] Pt visit completed with aid of bolivian interpretor. Problem focus examination to the left lower extremity: Incision site is well healed. Pin point opening noted to the dorsal distal ankle incision with scant serous drainage; no erythema or purulent drainage noted. Mild edema surrounding surgical site. No lymphadenopathy. No lymphangitis. No surrounding cellulitis. Minimal pain to palpation of the surgical site lateral ankle. No pain medially or anteriorly. Patient has no pain to palpation of calf. The calf is soft, supple and nontender without evidence of DVT. Negative Joyce's test. Satisfactory alignment is noted. Pedal pulses are palpable. Capillary refill time is less than three seconds to all digits. Protective sensation is absent to all pedal sites. Radiographs: 3 views left ankle were obtained and evaluated. Radiographic evaluation: Evidence of previous ORIF left ankle fracture with increased trabeculation noted across the fracture. Alignment maintained. Hardware intact without breakage. Mild lucency around syndesmotic screws consistent with expected postoperative changes. No lucency noted around remaining screws. Ankle mortise WNL. Fibula out to length. Vascular calcifications noted. Cultures: MRSA Assessment: S/p ORIF left ankle fractures DM with neuropathy CKD on dialysis Plan: The patient was educated on clinical examination findings, postoperative prognosis and protocol. All questions were answered to patient's apparent satisfaction. Post-operative swelling is consistent with expectations. X-rays reveal subtle lucency around the syndesmotic screws, indicating expected movement due to ambulation. No signs of acute infection; no increased warmth or erythema. Minimal serous drainage observed from a small pinhole wound, previously cultured MRSA. - Antibiotic therapy for an extended duration due to high risk of infection. Rx Bactrim - Apply mupirocin ointment and a Band-Aid over the pinhole wound; presc (more content not included)... Normal [facility] XR Ankle - left AP and Later al and obliqueon 12-04-2024 [facility] Radiology Study observation (narrative) [facility] Anti-Smooth Muscle ABSon ANTISMOOTH MUSC 10 Units Normal 0-19 [facility] Comment on above: Result Comment: Nega tive 0 - 19 Weak positive 20 - 30 Moderate to strong positive >30 Actin Antibodies are found in 52-85% of patients with autoimmune hepatitis or chronic active hepatitis and in 22% of patients with primary biliary cirrhosis. Performed at: [facility] [id number] Director Reactor Projects: Jp Muniz PhD, Phone: [phone] Performed By: #### L 500.4050, L549.3466, L100.0100 #### [facility] [address] [place], [address] Celiac Disease Profileon ENDOMYSIAL IGA Negative Normal Negative [facility] Comment on above: Performed By: #### L 500.4050, L501.9520, L100.0100 #### [facility] [address] [place], [address] IMMUNOGLOB A QN 98 mg/dL Normal 61-437 [facility] Comment on above: Performed By: #### L 500.4050, L501.9520, L100.0100 #### [facility] [address] [place], [address] tTG IGA <2 Normal 0-3 [facility] Comment on above: Result Comment: Nega tive 0 - 3 Weak Positive 4 - 10 Positive >10 Tissue Transglutaminase (tTG) has been identified as the endomysial antigen. Studies have demonstr- ated that endomysial IgA antibodies have over 99% specificity for gluten sensitive enteropathy. Performed By: #### L 500.4050, L501.9520, L100.0100 #### [facility] [address] [place], [address] ANTINUCLEAR ANTIBODIES DIREC Ton 11-25-2024 ROMAINE,DIRECT Negative Normal Negative [facility] Comment on above: Performed By: #### L 500.4050, L501.9520, L100.0100 #### [facility] [address] [place], [address] Alpha Antitrypsin Serumon ALPHA1 ANTITRYP 116 mg/dL Normal 101-187 [facility] Comment on above: Result Comment: Perf ormed at: - [facility] [id number] Director [employer]actor Projects: Jp Muniz PhD, Phone: [phone] Performed By: #### L 500.4050, L501.9520, L100.0100 #### [facility] [address] [place], [address] Anti-Mitochondrial ABon 07- ANTIMITOCHON AB <20.0 Normal 0.0-20.0 [facility] Comment on above: Result Comment: Nega tive 0.0 - 20.0 Equivocal 20.1 - 24.9 Positive >24.9 Mitochondrial (M2) Antibodies are found in 90-96% of patients with primary biliary cirrhosis. Performed By: #### L 500.4050, L501.9520, L100.0100 #### [facility] [address] [place], [address] Bilirubin directon 5 Bilirubin.direct [Mass/Vol] 0.10 mg/dL 0.00-0.30 [facility] Bilirubin, totalon 5 Bilirubin [Mass/Vol] 0.23 mg/dL 0.00-1.30 [facility] Ferritinon 11-24-2024 Ferritin [Mass/Vol] 369 ng/mL Normal 37-417 [facility] Comment on above: Performed By: #### L 500.4050, L501.9520, L100.0100 #### [facility] [address] [place], [address] Iron measurement (mass/mass) on 11-24-2024 Iron (Unsp spec) [Mass/Mass] 60 ug/dL Low 65-175 [facility] Iron+Iron Binding Capacityon 11-24-2024 Iron [Mass/Vol] 60 ug/dL Low 65-175 [facility] Comment on above: Performed By: #### L 500.4050, L501.9520, L100.0100 #### [facility] [address] [place], [address] IRON SATURATION 19.0 Normal 9-55 [facility] Comment on above: Performed By: #### L 500.4050, L501.9520, L100.0100 #### [facility] [address] [place], [address] TIBC 321 ug/dL Normal 250-450 [facility] Comment on above: Performed By: #### L 500.4050, L501.9520, L100.0100 #### [facility] [address] [place], [address] UIBC 261 ug/dL Normal 228-428 [facility] Comment on above: Performed By: #### L 500.4050, L501.9520, L100.0100 #### [facility] [address] [place], [address] Laboratory - Chemistry and C hemistry - challengeon 11-24-2024 AST [Catalytic activity/Vol] 42 U/L High <38 [facility] Liver Profileon 11-24-2024 Albumin [Mass/Vol] 4.0 g/dL Normal 3.4-4.8 [facility] Comment on above: Performed By: #### L 500.4050, L501.9520, L100.0100 #### [facility] [address] [place], [address] ALK PHOS 46 U/L Normal 40-129 [facility] Comment on above: Performed By: #### L 500.4050, L501.9520, L100.0100 #### [facility] [address] [place], [address] ALT [Catalytic activity/Vol] 31 U/L Normal <=46 [facility] Comment on above: Performed By: #### L 500.4050, L501.9520, L100.0100 #### [facility] [address] [place], [address] AST [Catalytic activity/Vol] 42 U/L High <=37 [facility] Comment on above: Performed By: #### L 500.4050, L501.9520, L100.0100 #### [facility] [address] [place], [address] Bilirubin [Mass/Vol] 0.23 mg/dL Normal 0.00-1.30 [facility] Comment on above: Performed By: #### L 500.4050, L501.9520, L100.0100 #### [facility] [address] [place], [address] Bilirubin.direct [Mass/Vol] 0.10 mg/dL Normal 0.00-0.30 [facility] Comment on above: Performed By: #### L 500.4050, L501.9520, L100.0100 #### [facility] [address] [place], [address] Globulin (S) [Mass/Vol] 2.4 g/dL Normal 2.2-4.2 [facility] Comment on above: Performed By: #### L 500.4050, L501.9520, L100.0100 #### [facility] [address] [place], [address] T PROT 6.3 g/dL Normal 5.9-8.4 [facility] Comment on above: Performed By: #### L 500.4050, L501.9520, L100.0100 #### [facility] [address] [place], [address] No Panel Informationon 11-24 Unsaturated Iron Binding Capacity 261 ug/dL 228-428 [facility] Serum [id number]-[id number]-hevaeihiivh me asurementon 11-24-2024 Alpha 1 antitrypsin [Mass/Vol] 116 mg/dL 101-187 [facility] Comment on above: Performed at: [address] [id number] Director: Jp Muniz PhD, Phone: [phone] Serum globulin measurementon 11-24-2024 Globulin (S) [Mass/Vol] 2.4 g/dL 2.2-4.2 [facility] Serum mitochondria antibody detectionon 11-24-2024 Mitochondria Ab Ql (S) <20.0 Units 0.0-20.0 [facility] Comment on above: Negative 0.0 - 20.0 Equivocal 20.1 - 24.9 Positive >24.9Mitochondrial (M2) Antibodies are found in 90-96% ofpatients with primary biliary cirrhosis. Serum or plasma IgA measurem ent (mass/volume)on 11-24-2024 IgA [Mass/Vol] 98 mg/dL 61-437 [facility] Serum or plasma actin IgG an tibody assay (units/volume)on 11-24-2024 Actin IgG Qn 10 Units 0-19 [facility] Comment on above: Negative 0 - 19 Weak positive 20 - 30 Moderate to strong positive >30 Actin Antibodies are found in 52-85% of patients with autoimmune hepatitis or chronic active hepatitis and in 22% of patients with primary biliary cirrhosis.Performed at: [employer] [id number] Director: Jp Muniz PhD, Phone: [phone] Serum or plasma alanine south otransferase (ALT) measurementon 11-24-2024 ALT [Catalytic activity/Vol] 31 U/L <47 [facility] Serum or plasma albumin ian urement (mass/volume)on 11-24-2024 Albumin [Mass/Vol] 4.0 g/dL 3.4-4.8 [facility] Serum or plasma alkaline dre sphatase measurementon 11-24-2024 ALP [Catalytic activity/Vol] 46 U/L 40-129 [facility] Serum or plasma ferritin isra surement (mass/volume)on 11-24-2024 Ferritin [Mass/Vol] 369 ng/mL 37-417 [facility] Serum or plasma iron saturat ion measurement (mass fraction)on 11-24-2024 Iron saturation [Mass fraction] 19.0 % 9-55 [facility] Serum tissue transglutaminas e (tTG) IgA antibody assay (units/volume)on 11-24-2024 tTG IgA Qn (S) <2 U/mL 0-3 [facility] Comment on above: Negative 0 - 3 Weak Positive 4 - 10 Positive >10 Tissue Transglutaminase (tTG) has been identified as the endomysial antigen. Studies have demonstr- ated that endomysial IgA antibodies have over 99% specificity for gluten sensitive enteropathy. Total proteinon 11-24-2024 Protein [Mass/Vol] 6.3 g/dL 5.9-8.4 [facility] Bacteria Wnd Culton 11-14-19 25 Bacteria identified Cx Nom (Wound) ORGANISM ID: 1 Few Methicillin-RESISTAN T Staphylococcus aureus (MRSA) GRAM STAIN: No organisms seen Few Polymorphonuclear leukocytes ORGANISM ID: 1 (METHICILLIN RESISTANT STAPHYLOCOCCUS AUREUS) ANTIBIOTIC INTERPRETATION MAGDALENA STATUS REFERENCE RANGE Oxacillin R >2 F Susceptible <=2 , Intermediate >2 , Resistant >2 Oxacillin resistant Staphylococci are resistant to all beta-lactam antibiotics (except new cephalosporins with anti-MRSA activity i.e. ceftaroline) Gentamicin S <=2 F Susceptible <=4 , Intermediate >4 , Resistant >8 Erythromycin R >4 F Susceptible <=0.5 , Intermediate >.5 , Resistant >4 Clindamycin S <=0.5 F Susceptible <=0.5 , Intermediate >.5 , Resistant >2 This isolate does not demonstrate inducible Clindamycin resistance in vitro. Trimeth sulfameth S <=1 F Vancomycin S 1 F Susceptible <=2 , Intermediate >2 , Resistant >=16 Daptomycin S <=1 F Susceptible <=1 , Nonsusceptible >1 Linezolid S 2 F Susceptible <=4 , Intermediate >4 , Resistant >4 Rifampin S <=0.5 F Susceptible <=1 , Intermediate >1 , Resistant >2 Rifampin should not be used alone for antimicrobial therapy. Tetracycline I 8 F Susceptible <=4 , Intermediate >4 , Resistant >8 Abnormal [facility] Comment on above: Performed By: #### 6 [id number] ####[facility]ORY[facility] [id number] [address] [place] OF [facility] CNOVon 11-13-2024 CNOV Office Visit (AGPOB1) JOSH HUGHESNOÉ ([id number]) 1950 M [place] Date Time Provider Department 11/13/24 8:15 AM KALI GIBSON AGPOB1 During your visit today, we recorded the following information about you: Respiration Weight Height 20/minute 67.1 kg 1.727 m Kali Gibson DPM 11/13/2024 2:43 PM Signed DOS: 08/21/24 POD: 12 weeks POV: 5 Procedure: S/p ORIF left ankle fracture Noé has been ambulating in a boot for a right ankle and reports being able to ambulate well with it. He notes mild pain on the lateral aspect of the ankle. Denies any current nausea, vomiting, fever, chills, shortness of breath, chest pain or calf pain. PAST MEDICAL HISTORY Diagnosis Date Abnormal stress test Ankle fracture 07/2024 left CKD (chronic kidney disease), stage IV (HCC) Diabetes mellitus (HCC) Type 1 Diabetic polyneuropathy (HCC) Essential hypertension Hypercholesteremia Hyperparathyroidism (HCC) Hypotension Known medical problems peritoneal dialysis Known medical problems edema Known medical problems hyperlipidemia Pacemaker 01/2024 Summa placed for sick sinus syndrome Vitamin D deficiency Current Outpatient Medications Medication Sig atorvastatin (LIPITOR) 20 mg tablet Take 20 mg by mouth. TRIPHROCAPS 1 mg capsule Take 1 capsule by mouth once daily. calcitriol (ROCALTROL) 0.5 mcg capsule Take 0.5 mcg by mouth. docusate sodium (COLACE) 100 mg capsule Take 100 mg by mouth. felodipine ER (PLENDIL) 10 mg 24 hr tablet Take 10 mg by mouth. fenofibrate (LOFIBRA) 200 mg capsule Take 200 mg by mouth. ferrous sulfate 325 mg (65 mg iron) tablet Take 325 mg by mouth. gabapentin (NEURONTIN) 100 mg capsule Take 1 capsule by mouth. gentamicin 0.1% 0.1 % cream Apply to affected area. LANTUS SOLOSTAR U-100 INSULIN 100 unit/mL (3 mL) lactulose 10 gram/15 mL solution Take 20 g by mouth. metoprolol succinate ER (TOPROL XL) 50 mg 24 hr tablet Take 1 tablet by mouth once daily. pantoprazole DR (PROTONIX) 20 mg tablet Take 40 mg by mouth. sevelamer carbonate (RENVELA) 800 mg tablet Take 1,600 mg by mouth. No current facility-administere d medications for this visit. ALLERGIES No Known Allergies Objective: Patient presents nonweightbearing to left leg. Bandaid on the 2nd toe left foot. Pt visit completed with aid of bolivian interpretor. Problem focus examination to the left lower extremity: Incision site is well healed. Pin point opening noted to the dorsal ankle incision with scant serous drainage; no erythema or purulent drainage noted. Mild edema surrounding surgical site. No lymphadenopathy. No lymphangitis. No surrounding cellulitis. Minimal pain to palpation of the surgical site lateral ankle. No pain medially or anteriorly. Patient has no pain to palpation of calf. The calf is soft, supple and nontender without evidence of DVT. Negative Joyce's test. Satisfactory alignment is noted. Pedal pulses are palpable. Capillary refill time is less than three seconds to all digits. Protective sensation is absent to all pedal sites. Radiographs: 3 views left ankle were obtained and evaluated. Radiographic evaluation: Evidence of previous ORIF left ankle fracture with increased trabeculation noted across the fracture. Alignment maintained. Hardware intact without breakage or loosening noted. Ankle mortise WNL. Fibula out to length. Vascular calcifications noted. Assessment: Satisfactory post-operative progress Plan: The patient was educated on clinical examination findings, postoperative prognosis and protocol. All questions were answered to patient's apparent satisfaction. Post-operative status following trimalleolar fracture repair. Minimal serous drainage observed from a small pinpoint area, likely due to boot friction. No significant erythema or signs of infection noted. Recent X-rays demonstrate satisfactory healing progress. - Obtained culture from the drainage site; results expected in 3-5 days. Will contact patient if any concerning findings are identified. - Initiated oral antibiotic therapy; prescription doxycycline sent to patient's pharmacy. - Applied antibiotic ointment and a Band-Aid to the drainage site; instructed patient to continue this regimen. - Adjusted boot to reduce pressure on the affected area. - Provided tubigrip for additional compression. - Advised gradual transition out of the boot, starting with wearing a normal shoe in the morning and reverting to the boot if fatigue occurs; expected transition period is approximately one week. - Scheduled follow-up appointment in 2-3 weeks to monitor healing progress. - Instructed patient to report any increase in redness, pain, nausea, vomiting, fever, or chills immediately, as these may indicate infection. Kali Gibson DPM Allergies As of Date: 11/13/2024 (No Known Allergies) Date R (more content not included)... Normal [facility] XR Ankle - left AP and Later al and obliqueon 11-13-2024 [facility] Rad[facility]narrative[facility] CNOV Office Visit (AGPOB1) NOÉ PINO ([id number]) 1950 M [facility] [place] Date Time Provider Department 10/13/24 11:00 AM KALI GIBSON POB1 During your visit today, we recorded the following information about you: Respiration Weight Height 20/minute 67.1 kg 1.727 m Kali Gibson DPM 10/13/2024 4:05 PM Signed DOS: 08/21/24 POD: 7.5 weeks POV: 4 Procedure: S/p ORIF left ankle fracture This 73 year old male presents for a post op visit. Patient states they are doing well. Pain is well controlled. Has been partial weightbearing to the left lower extremity in boot with assistance of crutches. Denies any current nausea, vomiting, fever, chills, shortness of breath, chest pain or calf pain. States that developed a blister on the 2nd toe left foot. Not sure how. Has been applying bandage overlying. Denies any other pedal complaints PAST MEDICAL HISTORY Diagnosis Date Abnormal stress test Ankle fracture 07/2024 left CKD (chronic kidney disease), stage IV (HCC) Diabetes mellitus (HCC) Type 1 Diabetic polyneuropathy (HCC) Essential hypertension Hypercholesteremia Hyperparathyroidism (HCC) Hypotension Known medical problems peritoneal dialysis Known medical problems edema Known medical problems hyperlipidemia Pacemaker 01/2024 Summa placed for sick sinus syndrome Vitamin D deficiency Current Outpatient Medications Medication Sig atorvastatin (LIPITOR) 20 mg tablet Take 20 mg by mouth. TRIPHROCAPS 1 mg capsule Take 1 capsule by mouth once daily. calcitriol (ROCALTROL) 0.5 mcg capsule Take 0.5 mcg by mouth. docusate sodium (COLACE) 100 mg capsule Take 100 mg by mouth. felodipine ER (PLENDIL) 10 mg 24 hr tablet Take 10 mg by mouth. fenofibrate (LOFIBRA) 200 mg capsule Take 200 mg by mouth. ferrous sulfate 325 mg (65 mg iron) tablet Take 325 mg by mouth. gabapentin (NEURONTIN) 100 mg capsule Take 1 capsule by mouth. gentamicin 0.1% 0.1 % cream Apply to affected area. LANTUS SOLOSTAR U-100 INSULIN 100 unit/mL (3 mL) lactulose 10 gram/15 mL solution Take 20 g by mouth. metoprolol succinate ER (TOPROL XL) 50 mg 24 hr tablet Take 1 tablet by mouth once daily. pantoprazole DR (PROTONIX) 20 mg tablet Take 40 mg by mouth. sevelamer carbonate (RENVELA) 800 mg tablet Take 1,600 mg by mouth. No current facility-administere d medications for this visit. ALLERGIES No Known Allergies Objective: Patient presents nonweightbearing to left leg. Bandaid on the 2nd toe left foot. Pt visit completed with aid of bolivian interpretor. Problem focus examination to the left lower extremity: Incision site is well healed. Small eschars overlying dorsal ankle incisions; no erythema or active drainage noted. Mild edema surrounding surgical site. No drainage. No lymphadenopathy. No lymphangitis. No surrounding cellulitis. No signs of infection. Lysed blister formation noted to the dorsal 2nd toe without erythema, edema, active drainage or warmth. No pain to palpation of the surgical site lateral ankle. No pain medially or anteriorly. Patient has no pain to palpation of calf. The calf is soft, supple and nontender without evidence of DVT. Negative Joyce's test. Satisfactory alignment is noted. Pedal pulses are palpable. Capillary refill time is less than three seconds to all digits. Protective sensation is absent to all pedal sites. Radiographs: 3 views left ankle were obtained and evaluated. Radiographic evaluation: Evidence of previous ORIF left ankle fracture. Alignment maintained. Hardware intact without breakage or loosening noted. Ankle mortise WNL. Fibula out to length. Vascular calcifications noted. Assessment: Satisfactory post-operative progress Plan: The patient was educated on clinical examination findings, postoperative prognosis and protocol. All questions were answered to patient's apparent satisfaction. - Tubigrip applied. - Transition to full weight bearing in pneumatic boot as tolerated - May shower but no soaking - Continue bandage to the 2nd toe blister formation daily Follow up 4 weeks with xrays Kali Gibson DPM Allergies As of Date: 10/13/2024 (No Known Allergies) Date Reviewed: 10/13/2024 Reviewed by: Kali Gibson DPM - Fully Assessed Reason for Visit: Established Patient [175] Follow Up [171] Post Op [174] Pain [78] Primary Visit Diagnosis:Post-opera tive state [Z98.890] Other Visit Diagnoses:Trimalleol ar fracture of ankle, closed, left, initial encounter [S82.552A] Type 1 diabetes mellitus with diabetic polyneuropathy (HCC) [E10.42] CKD (chronic kidney disease) stage V requiring chronic dialysis ([facility]) [N18.6, Z99.2] Prescriptions as of 10/13/2024 - atorvastatin (LIPITOR) 20 mg tablet Take 20 mg by mouth. - TRIPHROCAPS 1 mg capsule Take 1 capsule by mouth once daily. - calcitriol (ROCALTROL) 0.5 mcg capsule Take (more content not included)... [facility] Tele[facility] (AGPOB1) NOÉ PINO ([id number]) 1950 [facility] Date Time Provider Department 10/07/24 KALI GIBSON During your visit today, we recorded the following information about you: Jaclyn Seaman Ppg, Shanti 10/07/2024 10:06 AM Signed Ivelisse called stating that she will no longer be able to bring her dad to [place] for appointments that she needs him referred to someone in [place] Dr Gibson had me call her back and let her know that is not recommend because he is still in his 90 days and that he need follow up for the surgery done and as he is getting better his appointment will be come less and less When call Ivelisse back she said unless we are going to see her dad on a Saturday she will not be bring him due to her new work schedule of 01-[address] Gibson asked me to call back to see if another family member can bring him or if his insurance has like a provide a ride When calling back I go voicemail had to leave a message Shanti Landaverde Seaman Ppg Allergies As of Date: 10/07/2024 (No Known Allergies) Date Reviewed: 09/18/2024 Reviewed by: Kali Gibson DPM - Fully Assessed Reason for Visit: Appointment [186] Prescriptions as of 10/07/2024 - atorvastatin (LIPITOR) 20 mg tablet Take 20 mg by mouth. - TRIPHROCAPS 1 mg capsule Take 1 capsule by mouth once daily. - calcitriol (ROCALTROL) 0.5 mcg capsule Take 0.5 mcg by mouth. - docusate sodium (COLACE) 100 mg capsule Take 100 mg by mouth. - felodipine ER (PLENDIL) 10 mg 24 hr tablet Take 10 mg by mouth. - fenofibrate (LOFIBRA) 200 mg capsule Take 200 mg by mouth. - ferrous sulfate 325 mg (65 mg iron) tablet Take 325 mg by mouth. - gabapentin (NEURONTIN) 100 mg capsule Take 1 capsule by mouth. - gentamicin 0.1% 0.1 % cream Apply to affected area. - LANTUS SOLOSTAR U-100 INSULIN 100 unit/mL (3 mL) - lactulose 10 gram/15 mL solution Take 20 g by mouth. - metoprolol succinate ER (TOPROL XL) 50 mg 24 hr tablet Take 1 tablet by mouth once daily. - pantoprazole DR (PROTONIX) 20 mg tablet Take 40 mg by mouth. - sevelamer carbonate (RENVELA) 800 mg tablet Take 1,600 mg by mouth. Problem List As Of Date 10/07/2024 Noted Resolved Closed trimalleolar fracture of left ankle [S82*08/21/2024 Encounter Status:Closed by JACLYN RAIL SWITCH OPERATOR SHANTI BONDS on 10/07/24 Normal [facility] Cardiology Visit Reporton Cardiology Visit Report [facility] [address] [place] [address] OFFICE VISIT Date of Service: 10/05/24 MR#: [id number] Acct: [id number] Name: NOÉ PINO Rep #: [id number] : 1950 Provider: RANDOLPH lim Age/Sex: 73/M Location: [facility] Status: Signed HPI HPI History of Present Illness Details: This pleasant gentleman has past medical history significant for diabetes mellitus, end-stage renal disease on peritoneal dialysis, sick sinus syndrome status post permanent pacemaker placement and hypertension. He has had a Lexiscan stress Myoview done as part of his preop workup for putting him on the renal transplant list. It is been reported back as abnormal. Subsequently he is here for further evaluation and management. He had heart catheterization on 09/22/2024 that resulted in drug- eluting stent to proximal diagonal 1 and proximal ramus. Medical therapy for proximal OM 1 was recommended. An attempt was made to utilize interpreting service, but phone did not have a speaker. [id number] utilized as interpreting service. Patient acknowledge okay to do so. He denies chest, arm, jaw, or neck discomfort. He states palpitations that he describes as pounding. He denies bilateral lower extremity edema. He denies claudication. He denies shortness of breath with activity, shortness of breath at rest, orthopnea, or PND. He denies chronic cough. He denies significant, sudden weight gain. He states lightheadedness. He denies dizziness, near-syncope, or syncope. He denies blood in urine, blood in stool, or epistaxis. He denies fever with chills. He denies myalgia. He denies fatigue. His exercise level has remained stable. 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 Is patient in pain?: No Allergies No Known Allergies Allergy (Verified 09/16/24 09:12) Medications ???Medication ???Instructions ???Recorded ???Confirmed ???Type calcitriol 0.25 mcg capsule 0.25 mcg PO DAILY 10/04/23 5 History insulin glargine 100 unit/mL (3 25 unit subcut QAM 10/04/23 History mL) subcutaneous pen (Lantus Solostar U-100 Insulin) sevelamer carbonate 800 mg tablet 1,600 mg PO TID 10/04/23 10/05/24 History vitamin B complex and vitamin C 1 cap PO DAILY 10/04/23 10/05/24 H istory no.20-folic acid 1 mg capsule (Triphrocaps) atorvastatin 40 mg tablet 40 mg PO QDAY 09/08/24 10/05/24 Hi story gabapentin 100 mg capsule 100 mg PO QHS 09/08/24 10/05/24 Hi story nifedipine 60 mg tablet,extended 60 mg PO BID 09/08/24 10/05/24 His tory release 24 hr aspirin 81 mg tablet,delayed 81 mg PO QDAY #90 tabs 09/16/24 Rx release (Adult Aspirin Regimen) pantoprazole 40 mg tablet,delayed 40 mg PO QDAY 09/16/24 10/05/24 H istory release carvedilol 3.125 mg tablet 3.125 mg PO BID #60 tabs 09/22/24 10/05/24 Rx clopidogrel 75 mg tablet 75 mg PO DAILY #30 tabs 09/22/24 0 10/05/24 Rx Ejection fraction %: 54 Have you fallen in the past year?: Yes [facility] Medical History Edema, unspecified Vitamin D deficiency, unspecified Proteinuria due to type 2 diabetes mellitus Weakness Hypotension Near syncope Bradycardia History of pacemaker End stage renal disease on dialysis Sick sinus syndrome Type 2 diabetes mellitus with hyperglycemia Hyperparathyroidism Hyperlipidemia, unspecified Diabetic polyneuropathy Abdominal fistula Hypercholesteremia Essential hypertension Presence of permanent cardiac pacemaker Wears glasses Insulin dependent diabetes mellitus Anemia High cholesterol Dietary restriction Gastric reflux Non-smoker Hypertension History of peritoneal dialysis End stage chronic kidney disease Positive colorectal cancer screening using Cologuard test Surgical History Stented coronary artery (09/22/24) History of cataract surgery Family History Brother Diabetes Father Diabetes Social History Smoking Status: Never smoker alcohol intake: never substance use type: does not use ROS Const Const: Negative for fatigue or weakness Eyes Eyes: Negative for change in vision ENT ENT: Negative for dizziness or balance problems Cardio Chest Pain: No Palpitations: Yes feels like its: pounding Edema: None Muscle aches with walking: None Resp Respiratory: Negative for SOB with activity, SOB at rest or SOB orthop (more content not included)... Normal [facility] Anion gap in Serum or Plasma Ordered By: Apryl Mathew on 09-23-2024 Anion gap [Moles/Vol] 15 mmol/L 5-15 [facility] BUN/creatinine ratioOrdered By: Apryl Mathew on 09-23-2024 Urea nitrogen/Creatinine [Mass ratio] 5.6 mg/mg Low 10-20 [facility] Bilirubin, totalOrdered By: Apryl Mathew on 09-23-2024 Bilirubin [Mass/Vol] 0.25 mg/dL 0.00-1.30 [facility] CBC-Complete Blood Cnt No Di ffon 09-23-2024 Erythrocyte distribution width (RBC) [Ratio] 12.7 % Normal 11.6-14.6 [facility] Comment on above: Performed By: #### L 500.4050, L100.0500 #### [facility] [address] [place], [address] Hematocrit (Bld) [Volume fraction] 27.5 % Low 40-54 [facility] Comment on above: Performed By: #### L 500.4050, L100.0500 #### [facility] [address] [place], [address] Hemoglobin (Bld) [Mass/Vol] 9.3 g/dL Low 13.0-16.5 [facility] Comment on above: Performed By: #### L 500.4050, L100.0500 #### [facility] [address] [place], [address] MCH (RBC) [Entitic mass] 30.5 pg Normal 27.0-32.0 [facility] Comment on above: Performed By: #### L 500.4050, L100.0500 #### [facility] [address] [place], [address] MCHC (RBC) [Mass/Vol] 33.8 g/dL Normal 32-36 [facility] Comment on above: Performed By: #### L 500.4050, L100.0500 #### [facility] [address] [place], [address] MCV (RBC) [Entitic vol] 90.2 fL Normal 80-94 [facility] Comment on above: Performed By: #### L 500.4050, L100.0500 #### [facility] [address] [place], [address] Platelet mean volume (Bld) [Entitic vol] 9.7 fL Normal 6.2-12.0 [facility] Comment on above: Performed By: #### L 500.4050, L100.0500 #### [facility] [address] [place], [address] Platelets (Bld) [#/Vol] 187 10*3/uL Normal 150-450 [facility] Comment on above: Performed By: #### L 500.4050, L100.0500 #### [facility] [address] [place], [address] RBC (Bld) [#/Vol] 3.05 10*6/uL Low 4.6-6.2 [facility] Comment on above: Performed By: #### L 500.4050, L100.0500 #### [facility] [address] [place], [address] RDW SD 41.3 fl Normal 35.1-43.9 [facility] Comment on above: Performed By: #### L 500.4050, L100.0500 #### [facility] [address] [place], [address] WBC (Bld) [#/Vol] 6.4 10*3/uL Normal 4.4-11.0 [facility] Comment on above: Performed By: #### L 500.4050, L100.0500 #### [facility] [address] [place], [address] Carbon dioxide, total [Moles /volume] in Central venous bloodOrdered By: Apryl Mathew on 09-23-2024 CO2 [Moles/Vol] 22.0 mmol/L 21.0-32.0 [facility] Chloride assayOrdered By: Tc Mathew on 09-23-2024 Chloride [Moles/Vol] 95 mmol/L Low 98-108 [facility] Comprehensive Metabolic Prof ilon 09-23-2024 Albumin [Mass/Vol] 3.5 g/dL Normal 3.4-4.8 [facility] Comment on above: Performed By: #### L 500.4050, L501.9520, L100.0100 #### [facility] [address] [place], [address] Albumin/Globulin [Mass ratio] 1.0 {ratio} Normal 0.9-2.4 [facility] Comment on above: Performed By: #### L 500.4050, L501.9520, L100.0100 #### [facility] [address] [place], [address] ALK PHOS 43 U/L Normal 40-129 [facility] Comment on above: Performed By: #### L 500.4050, L501.9520, L100.0100 #### [facility] [address] [place], [address] ALT [Catalytic activity/Vol] 13 U/L Normal <=46 [facility] Comment on above: Performed By: #### L 500.4050, L501.9520, L100.0100 #### [facility] [address] [place], [address] AST [Catalytic activity/Vol] 19 U/L Normal <=37 [facility] Comment on above: Performed By: #### L 500.4050, L501.9520, L100.0100 #### [facility] [address] [place], [address] Bilirubin [Mass/Vol] 0.25 mg/dL Normal 0.00-1.30 [facility] Comment on above: Performed By: #### L 500.4050, L501.9520, L100.0100 #### [facility] [address] [place], [address] BUN/CRE 5.6 RATIO Low 10-20 [facility] Comment on above: Performed By: #### L 500.4050, L501.9520, L100.0100 #### [facility] [address] [place], [address] Calcium [Mass/Vol] 10.1 mg/dL Normal 7.6-11.0 [facility] Comment on above: Performed By: #### L 500.4050, L501.9520, L100.0100 #### [facility] [address] [place], [address] Chloride [Moles/Vol] 95 mmol/L Low 98-108 [facility] Comment on above: Performed By: #### L 500.4050, L501.9520, L100.0100 #### [facility] [address] [place], [address] CO2 [Moles/Vol] 22.0 mmol/L Normal 21.0-32.0 [facility] Comment on above: Performed By: #### L 500.4050, L501.9520, L100.0100 #### [facility] [address] [place], [address] Creatinine [Mass/Vol] 11.00 mg/dL Invalid Interpretation Code 0.70-1.20 [facility] Comment on above: Result Comment: Crit ical Result(s) Called at 09/23/2024-07:13 by: Damon Cantu to Artur Robb??Results read back by same. Performed By: #### L 500.4050, L501.9520, L100.0100 #### [facility] [address] [place], [address] ECRCL 5.76 ml/min Invalid Interpretation Code 50-250 [facility] Comment on above: Performed By: #### L 500.4050, L501.9520, L100.0100 #### [facility] [address] [place], [address] GAP 15 Normal 5-15 [facility] Comment on above: Performed By: #### L 500.4050, L501.9520, L100.0100 #### [facility] [address] [place], [address] GFR/1.73 sq M.predicted among non-blacks MDRD (S/P/Bld) [Vol rate/Area] 5 mL/min/{1.73_m2} Low >60 [facility] Comment on above: Result Comment: mL/m in/1.73m2 CKD-EPI Creatinine Equation (2020) Performed By: #### L 500.4050, L501.9520, L100.0100 #### [facility] [address] [place], [address] Globulin (S) [Mass/Vol] 3.4 g/dL Normal 2.2-4.2 [facility] Comment on above: Performed By: #### L 500.4050, L501.9520, L100.0100 #### [facility] [address] [place], [address] Glucose [Mass/Vol] 115 mg/dL High 70-99 [facility] Comment on above: Performed By: #### L 500.4050, L501.9520, L100.0100 #### [facility] [address] [place], [address] Potassium [Moles/Vol] 4.7 mmol/L Normal 3.3-5.1 [facility] Comment on above: Performed By: #### L 500.4050, L501.9520, L100.0100 #### [facility] [address] [place], [address] Sodium [Moles/Vol] 132 mmol/L Low 133-145 [facility] Comment on above: Performed By: #### L 500.4050, L501.9520, L100.0100 #### [facility] [address] [place], [address] T PROT 6.9 g/dL Normal 5.9-8.4 [facility] Comment on above: Performed By: #### L 500.4050, L501.9520, L100.0100 #### [facility] [address] [place], [address] Urea nitrogen [Mass/Vol] 62 mg/dL High 4-19 [facility] Comment on above: Performed By: #### L 500.4050, L501.9520, L100.0100 #### [facility] [address] [place], [address] Erythrocyte distribution wid th ratioOrdered By: Apryl Mathew on 09-23-2024 Erythrocyte distribution width (RBC) [Ratio] 12.7 % 11.6-14.6 [facility] Erythrocyte distribution wid th standard deviationOrdered By: Apryl Mathew on 09-23-2024 Erythrocyte distribution width (RBC) [Ratio] 41.3 fl 35.1-43.9 [facility] Glomerular filtration rate ( GFR) estimation/1.73 sq m using serum, plasma, or whole bOrdered By: Apryl Mathew on 09-23-2024 GFR/1.73 sq M.predicted among non-blacks MDRD (S/P/Bld) [Vol rate/Area] 5 mL/min/{1.73_m2} Low >60 [facility] Comment on above: mL/min/1.73m2 CKD-EP I Creatinine Equation (2020) Hematocrit Auto (Bld) [Volum e fraction]Ordered By: Apryl Mathew on 09-23-2024 Hematocrit (Bld) [Volume fraction] 27.5 % Low 40-54 [facility] Hemoglobin measurementOrdere d By: Apryl Mathew on 09-23-2024 Hemoglobin (Bld) [Mass/Vol] 9.3 g/dL Low 13.0-16.5 [facility] - Chemistry and C hemistry - challengeOrdered By: Apryl Mathew on 09-23-2024 AST [Catalytic activity/Vol] 19 U/L <38 [facility] MCV (mean corpuscular volume ) determinationOrdered By: Apryl Mathew on 09-23-2024 MCV (RBC) [Entitic vol] 90.2 fL 80-94 [facility] Mean corpuscular hemoglobin (MCH) determinationOrdered By: Apryl Mathew on 09-23-2024 MCH (RBC) [Entitic mass] 30.5 pg 27.0-32.0 [facility] Mean corpuscular hemoglobin concentration (MCHC) determinationOrdered By: Apryl Mathew on 09-23-2024 MCHC (RBC) [Mass/Vol] 33.8 g/dL 32-36 [facility] Mean platelet volume determi nationOrdered By: Apryl Mathew on 09-23-2024 Platelet mean volume (Bld) [Entitic vol] 9.7 fL 6.2-12.0 [facility] Pacemaker Checkon 09-23-2024 Pacemaker Check [facility] [place] [address] Pacemaker Check Date of Service: 09/23/241702 MR#: [id number] Acct: [id number] Name: NOÉ PINO Rep #: [id number] : 1950 From: Judy Quinn Age/Sex: 73/M Location: [facility] Status: Signed Billing Codes PM Device Codes: 27523 PM Dev Prog Eval, Dual Assessment and Plan Assessment and Plan (1) Presence of cardiac pacemaker: Status: Chronic (2) Sick sinus syndrome: Status: Chronic 09/23/241703 Date Judy Garcia Signature: Date (if applicable) CC: Normal [facility] Platelet countOrdered By: Tc Mathew on 09-23-2024 Platelets (Bld) [#/Vol] 187 10*3/uL 150-450 [facility] Potassium measurement (mass/ volume)Ordered By: Apryl Mathew on 09-23-2024 Potassium (Unsp spec) [Mass/Vol] 4.7 mmol/L 3.3-5.1 [facility] RBC Auto (Bld) [#/Vol]Ordere d By: Apryl Mathew on 09-23-2024 RBC (Bld) [#/Vol] 3.05 10*6/uL Low 4.6-6.2 [facility] Serum creatinine measurement (mass/volume)Ordered By: Apryl Mathew on 09-23-2024 Creatinine [Mass/Vol] 11.00 mg/dL High 0.70-1.20 [facility] Comment on above: Critical Result(s) C alled at 09/23/2024-07:13 by: Damon Cantu to Artur Robb Results read back by same. Serum globulin measurementOr dered By: Apryl Mathew on 09-23-2024 Globulin (S) [Mass/Vol] 3.4 g/dL 2.2-4.2 [facility] Serum glucose measurement (m ass/volume)Ordered By: Apryl Mathew on 09-23-2024 Glucose [Mass/Vol] 115 mg/dL High 70-99 [facility] Serum or plasma alanine south otransferase (ALT) measurementOrdered By: Apryl Mathew on 09-23-2024 ALT [Catalytic activity/Vol] 13 U/L <47 [facility] Serum or plasma albumin ian urement (mass/volume)Ordered By: Apryl Mathew on 09-23-2024 Albumin [Mass/Vol] 3.5 g/dL 3.4-4.8 [facility] Serum or plasma albumin/glob ulin mass ratioOrdered By: Apryl Mathew on 09-23-2024 Albumin/Globulin [Mass ratio] 1.0 {ratio} 0.9-2.4 [facility] Serum or plasma alkaline dre sphatase measurementOrdered By: Apryl Mathew on 09-23-2024 ALP [Catalytic activity/Vol] 43 U/L 40-129 [facility] Serum or plasma calcium ian urement (mass/volume)Ordered By: Apryl Mathew on 09-23-2024 Calcium [Mass/Vol] 10.1 mg/dL 7.6-11.0 [facility] Serum or plasma urea nitroge n measurement (mass/volume)Ordered By: Apryl Mathew on 09-23-2024 Urea nitrogen [Mass/Vol] 62 mg/dL High 4-19 [facility] Sodium levelOrdered By: Javier Mathew on 09-23-2024 Sodium [Moles/Vol] 132 mmol/L Low 133-145 [facility] Total proteinOrdered By: Kenzie Mathew on 09-23-2024 Protein [Mass/Vol] 6.9 g/dL 5.9-8.4 [facility] White blood cell (WBC) count Ordered By: Apryl Mathew on 09-23-2024 WBC (Bld) [#/Vol] 6.4 10*3/uL 4.4-11.0 [facility] ACT Activated Clotting Timeo n 09-22-2024 ACTk CLOT TIME 210 sec [facility] [id number] [facility] Comment on above: Performed By: #### L 9100.0100 #### [facility] Laboratory [address] [place], [address] ACTk CLOT TIME 251 sec [facility] 74-137 [facility] Comment on above: Performed By: #### L 500.4050, L501.9520, L100.0100 #### [facility] [address] [place], [address] Cardiac Cath Interventionon 09-22-2024 Cardiac Cath Intervention [facility] Imaging Services [address] [place] [address] Cardiac Cath Intervention MR#: [id number] Acct: [id number] Name: NOÉ PINO Rep #: [id number] : 1950 73 From: Apryl Mathew MD PCP: Dr. Allen Jackson MD Status:ADM MARIA E Patient Name: NOÉ PINO Study Date: 09/22/2024 Performing: Apryl Mathew MD Ht: 67 inches 170.18 cm : 1950 Wt: 154.2 lbs 69.85 kg Age: 73 Gender: male BSA: 1.81 PROCEDURE(S) PERFORMED DC02-(01381)LHC/COR IC12-(73445/C9600)DE S W/WO PTCA, SINGLE CORONARY ARTERY IC12-(09856/C9600)DE S W/WO PTCA, SINGLE CORONARY ARTERY CLINICAL PROFILE AND CO-MORBIDITIES Indications: Suspected CAD Heart Failure: None Stress/Imaging Stress Test w/SPECT MPI: Yes Result: Positive High Risk Stress Test with SPECT MPI: Positive High Risk CAD Presentations: No Sxs, no angina. CONCLUSIONS 50% Mid LAD, 90% Prox D1 95% Prox Ramus 90% ostial/Prox OM1 (small vessel) LVEDP 18 mm Hg Successful PTCA/JANNY Prox D1 using [place] Archer 2.0x18 mm Successful PTCA/JANNY Prox Ramus using [place] Archer 2.0x8 mm RECOMMENDATIONS ASA Indefinitley P2Y12 inhibitors for atleast 6 months Medical management Prox OM1 lesion DESCRIPTION OF PROCEDURE The patient arrived to the procedure lab. The risks and benefits of the procedure as well as a full description of our services here and lack of surgical backup were fully explained to the patient and/or their significant other prior to the catheterization. The Timeout was completed, verifying the correct patient and procedure. The patient's procedural site was prepped and draped in the usual fashion. Local anesthetic was given subcutaneously to right radial region with Lidocaine 2%. Using a modified Seldinger technique, arterial access was obtained via the right radial artery, a 6Fr sheath was inserted.. Left Coronary Artery selective angiography was performed in multiple views using a 5 Fr. 4.0 Kimberly catheter. Right Coronary Artery selective angiography was then performed in multiple views using a 5 Fr. JR 4 catheterThe images were reviewed and options discussed. A decision was then made to proceed with an Intervention, IVUS or other adjunct procedure. XB 3.0 Guide catheter was inserted and engaged into the LCA. XB 3.5 Guide catheter was inserted and engaged into the LCA. Runthrough Guide wire was advanced to the Dia Archer [place] 2.0x18 Drug Eluting stent was inserted. Drug Eluting stent was removed intact, failed to cross lesion Emerge 2.00x12 Balloon catheter was inserted. Emerge 1.50x15 Balloon catheter was inserted. PTCA balloon inflated at 12 atms for 16 secs. PTCA balloon inflated at 12 atms for 10 secs. PTCA balloon inflated at 14 atms for 19 secs. PTCA balloon inflated at 14 atms for 18 secs. Angiogram performed post balloon dilatation. Emerge 2.00x12 Balloon catheter was inserted. PTCA balloon inflated at 8 atms for 12 secs. PTCA balloon inflated at 8 atms for 6 secs. Angiogram performed post balloon dilatation. Archer Arsenio 2.00x18 Drug Eluting stent was inserted. Angiogram performed post stent deployment. NC Emerge 2.00x12 Balloon catheter was inserted. Angiogram performed pre balloon dilatation. Angiogram performed post balloon dilatation. Runthrough Guide wire was advanced to the Ramus. Emerge 2.00x12 Balloon catheter was inserted. Emerge 1.50x8 Balloon catheter was inserted. PTCA balloon inflated at 8 atms for 14 secs. Angiogram performed post balloon dilatation. Emerge 2.00x8 Balloon catheter was inserted. PTCA balloon inflated at 6 atms for 11 secs. PTCA balloon inflated at 8 atms for 13 secs. PTCA balloon inflated at 6 atms for 6 secs. PTCA balloon inflated at 6 atms for 9 secs. Angiogram performed post balloon dilatation. Archer Arsenio 2.0x8 Drug Eluting stent was inserted. Angiogram performed post stent deployment. NC Emerge 2.00x8 Balloon catheter was inserted. Angiogram performed post balloon dilatation. The arterial sheath was pulled and a TR Band was applied for hemostasis w/ 12ml air CORONARY ANGIOGRAPHY DOMINANCE: Left Dominant LEFT HEART ASSESSMENT LVEDP: 18 mm Hg mmHg LEFT MAIN: Angiographically normal LEFT ANTERIOR DESCENDING ARTERY: LAD: Tubular 50% Mid lesion in LAD DIAGONAL 1: Tubular 50% Proximal lesion in 1st Diagonal Tubular 90% Mid lesion in 1st Diagonal OM 1: Tubular 90% Proximal lesion in MARG1 OM 2: Tubular 90% Proximal lesion in MARG1 RAMUS: Tubular Calcified 95% Proximal lesion in Ramus RIGHT CORONARY ARTERY: RCA: Tubular 50% Mid lesion in RCA INTERVENTION INFORMATION LESION SITE: 1st Diagonal (Proximal) Lesion Complexity: Non-High/Non-C, lesion length: 16 mm Pre Stenosis: 90 % Pre intervention VIKTORIA flow: 3 PROCEDURE: Drug Eluting Stent with pre and post dilatation Post Stenosis: 0 % Post int (more content not included)... Normal [facility] Cardiac catheterization repo rtOrdered By: Apryl Mathew on 09-22-2024 Cardiac catheterization study [facility] Imaging Services [address] [place] [address] Cardiac Cath Intervention MR#: [id number] Acct: [id number] Name: NOÉ PINO Rep #:[id number] : 1950 73 From: Apryl Mathew MD PCP: Dr. Allen Jackson MD Status:ADM I NO Patient Name: NOÉ PINO Study Date: 09/22/2024 Performing: Apryl Mathew MD Ht: 67 inches 170.18 cm : 1950 Wt: 154.2 lbs 69.85 kg Age: 73 Gender: male BSA: 1.81 PROCEDURE(S) PERFORMED DC02-(48900)LHC/COR IC12-(78131/C9600)DE S W/WO PTCA, SINGLE CORONARY ARTERY IC12-(73037/C9600)DE S W/WO PTCA, SINGLE CORONARY ARTERY CLINICAL PROFILE AND CO-MORBIDITIES Indications: Suspected CAD Heart Failure: None Stress/Imaging Stress Test w/SPECT MPI: Yes Result: Positive High Risk Stress Test with SPECT MPI: Positive High Risk CAD Presentations: No Sxs, no angina. CONCLUSIONS 50% Mid LAD, 90% Prox D1 95% Prox Ramus 90% ostial/Prox OM1 (small vessel) LVEDP 18 mm Hg Successful PTCA/JANNY Prox D1 using [place] Archer 2.0x18 mm Successful PTCA/JANNY Prox Ramus using Arsenio Archer 2.0x8 mm RECOMMENDATIONS ASA Indefinitley P2Y12 inhibitors for atleast 6 months Medical management Prox OM1 lesion DESCRIPTION OF PROCEDURE The patient arrived to the procedure lab. The risks and benefits of the procedure as well as a full description of our services here and lack of surgical backup were fully explained to the patient and/or their significant other prior to the catheterization. The Timeout was completed, verifying the correct patient and procedure. The patient's procedural site was prepped and draped in the usual fashion. Local anesthetic was given subcutaneously to right radial region with Lidocaine 2%. Using a modified Seldinger technique, arterial access was obtained via the right radial artery, a 6Fr sheath was inserted.. Left Coronary Artery selective angiography was performed in multiple views using a 5 Fr. 4.0 Kimberly catheter. Right Coronary Artery selective angiography was then performed in multiple views using a 5 Fr. JR 4 catheterThe images were reviewed and options discussed. A decision was then made to proceed with an Intervention, IVUS or other adjunct procedure. XB 3.0 Guide catheter was inserted and engaged into the LCA. XB 3.5 Guide catheter was inserted and engaged into the LCA. Runthrough Guide wire was advanced to the Diag Archer Arsenio 2.0x18 Drug Eluting stent was inserted. Drug Eluting stent was removed intact, failed to cross lesion Emerge 2.00x12 Balloon catheter was inserted. Emerge 1.50x15 Balloon catheter was inserted. PTCA balloon inflated at 12 atms for 16 secs. PTCA balloon inflated at 12 atms for 10 secs. PTCA balloon inflated at 14 atms for 19 secs. PTCA balloon inflated at 14 atms for 18 secs. Angiogram performed post balloon dilatation. Emerge 2.00x12 Balloon catheter was inserted. PTCA balloon inflated at 8 atms for 12 secs. PTCA balloon inflated at 8 atms for 6 secs. Angiogram performed post balloon dilatation. Archer Arsenio 2.00x18 Drug Eluting stent was inserted. Angiogram performed post stent deployment. NC Emerge 2.00x12 Balloon catheter was inserted. Angiogram performed pre balloon dilatation. Angiogram performed post balloon dilatation. Runthrough Guide wire was advanced to the Ramus. Emerge 2.00x12 Balloon catheter was inserted. Emerge 1.50x8 Balloon catheter was inserted. PTCA balloon inflated at 8 atms for 14 secs. Angiogram performed post balloon dilatation. Emerge 2.00x8 Balloon catheter was inserted. PTCA balloon inflated at 6 atms for 11 secs. PTCA balloon inflated at 8 atms for 13 secs. PTCA balloon inflated at 6 atms for 6 secs. PTCA balloon inflated at 6 atms for 9 secs. Angiogram performed post balloon dilatation. Archer Arsenio 2.0x8 Drug Eluting stent was inserted. Angiogram performed post stent deployment. NC Emerge 2.00x8 Balloon catheter was inserted. Angiogram performed post balloon dilatation. The arterial sheath was pulled and a TR Band was applied for hemostasis w/ 12ml air CORONARY ANGIOGRAPHY DOMINANCE: Left Dominant LEFT HEART ASSESSMENT LVEDP: 18 mm Hg mmHg LEFT MAIN: Angiographically normal LEFT ANTERIOR DESCENDING ARTERY: LAD: Tubular 50% Mid lesion in LAD DIAGONAL 1: Tubular 50% Proximal lesion in 1st Diagonal Tubular 90% Mid lesion in 1st Diagonal OM 1: Tubular 90% Proximal lesion in MARG1 OM 2: Tubular 90% Proximal lesion in MARG1 RAMUS: Tubular Calcified 95% Proximal lesion in Ramus RIGHT CORONARY ARTERY: RCA: Tubular 50% Mid lesion in RCA INTERVENTION INFORMATION LESION SITE: 1st Diagonal (Proximal) Lesion Complexity: Non-High/Non-C, lesion length: 16 mm Pre Stenosis: 90 % Pre intervention VIKTORIA flow: 3 PROCEDURE: Drug Eluting Stent with pre and post dilatation Post Stenosis: 0 % Post intervention VIKTORIA flow: 3 Lesion Devices: Terumo .014 180cm Runthrough Extra Floppy straight Cordis 6 Fr XB3.5 100cm Guide Catheter [facility] EMERGE MR 2.00x12 BALLOON [facility] EMERGE MR 1.5 (more content not included)... [facility] Work Phone: Cardiac rehabilitation repor tOrdered By: Paula Corral on 09-22-2024 Study report [facility] Cardiac Rehab [address] [place] [address] CR: Phase I Assessment MR#: [id number] Acct: [id number] Name: NOÉ PINO Rep #:[id number] : 1950 73 From: Paula rubalcava PCP: Dr. Allen Jackson MD DOS: Patient Communication Patient Information Former Patient:: Phase I PHII Cardiac Rehab Discussed with Patient:: Yes Guide to Cardiac Rehab Given to Patient:: Yes Cardiac Rehab Facility Choice List Given to Patient:: Yes Communication to Cardiac Rehab Choice Program [facility] CR PHII:: Communication Given to CR Practicing Urologist:: Apryl Mathew Cardiac Rehabilitation Info Program Information Cardiac Rehabilitation Program Information: Cardiac Rehab The cardiac rehab team at [facility] consists of highly skilled exercise physiologists, nurses, respiratory therapists and physicians working together with you. Our purpose is to help you have a full recovery and achieve the goals you set for yourself. Over the years many of our patients have returned to activities they assumed they would never do again! We can help restore your confidence and motivation to make lifestyle changes that can have a significant impact on your health and quality of life! We can help answer questions and concerns you may have about exercise, lifestyle, medications, diet, stress and anxiety which are common following a hospitalization. WE monitor ECG and vital signs during exercise and discuss your progress with you and report toyour physician(s). Cardiac Rehab is proven to help reduce readmissions, improve functional capacityand lower recurrence of problems with your heart. Our Cardiac Rehab program is Certified by the [place] [employer]Vascular [employer] Pulmonary [employer] (AACVPR) and Accredited by the [place] [employer] through our [facility]. You can contact us at . We invite you to call us with your questions or to get started in our program. If you have other questions or concerns be sure to ask your physician/provider during your follow-up visit. WE look forward to seeing you! 09/22/24 1413 Date Paula Corral Outcome assessment reviewed. Exercise plan approved as documented. Treatment plan and goals support patient needs/abilities. Continue with current plan. I certify the patient demonstrates improvement and remains willing and capable of participation. the patient continues to benefit from cardiac rehab services/training. The patient may continue at current intensity, endurance andmodality and progress per protocol. Cosigner Signature: Date _ CC: ~ Signed [facility] Comprehensive Metabolic Prof karen 09-22-2024 ALB Normal 3.4-4.8 [facility] Comment on above: Order Comment: CANCE L BRENDA POSADA ON PCU @1505 09-22-24 Result Comment: CANC EL PER ALBINO ON U 1505 09-22-24 Performed By: #### L 500.4050 #### [facility] Laboratory [address] [place], [place], [address] ALK PHOS Normal 40-129 [facility] Comment on above: Order Comment: CANCE L BRENDA WALLACEIE ON PCU @1505 09-22-24 Result Comment: CANC EL PER ALBINO ON U 1505 09-22-24 Performed By: #### L 500.4050 #### [facility] [address] [place], [address] ALT Normal <=46 [facility] Comment on above: Order Comment: CANCE L PER ALBINO ON PCU @1505 5-6-25 Result Comment: CANC EL PER ALBINO ON PCU 1505 5-6-25 Performed By: #### L 500.4050 #### [facility] [address] [place], [address] AST Normal <=37 [facility] Comment on above: Order Comment: CANCE L PER ALBINO ON PCU @1505 5-6-25 Result Comment: CANC EL PER ALBINO ON PCU 1505 5-6-25 Performed By: #### L 500.4050 #### [facility] [address] [place], [address] BUN Normal 4-19 [facility] Comment on above: Order Comment: CANCE L PER ALBINO ON PCU @1505 5-6-25 Result Comment: CANC EL PER ALBINO ON PCU 1505 5-6-25 Performed By: #### L 500.4050 #### [facility] [address] [place], [address] BUN/CRE Normal 10-20 [facility] Comment on above: Order Comment: CANCE L BRENDA POSADA ON PCU @1505 5-6-25 Result Comment: CANC EL PER ALBINO ON PCU 1505 5-6-25 Performed By: #### L 500.4050 #### [facility] [address] [place], [address] Calcium Normal 7.6-11.0 [facility] Comment on above: Order Comment: CANCE L PER ALBINO ON PCU @1505 5-6-25 Result Comment: CANC EL PER ALBINO ON PCU 1505 5-6-25 Performed By: #### L 500.4050 #### [facility] [address] [place], [address] CL Normal 98-108 [facility] Comment on above: Order Comment: CANCE L PER ALBINO ON PCU @1505 5-6-25 Result Comment: CANC EL PER ALBINO ON PCU 1505 5-6-25 Performed By: #### L 500.4050 #### [facility] [address] [place], [address] CO2 Normal 21.0-32.0 [facility] Comment on above: Order Comment: CANCE L PER ALBINO ON PCU @1505 5-6-25 Result Comment: CANC EL PER ALBINO ON PCU 1505 5-6-25 Performed By: #### L 500.4050 #### [facility] [address] [place], [address] CREAT,SERUM Normal 0.70-1.20 [facility] Comment on above: Order Comment: CANCE L PER ALBINO ON PCU @1505 5-6-25 Result Comment: CANC EL PER ALBINO ON PCU 1505 5-6-25 Performed By: #### L 500.4050 #### [facility] [address] [place], [address] eGFR Normal >60 [facility] Comment on above: Order Comment: CANCE L PER ALBINO ON PCU @1505 5-6-25 Result Comment: CANC EL PER ALBINO ON PCU 1505 5-6-25 Performed By: #### L 500.4050 #### [facility] [address] [place], [address] GAP Normal 5-15 [facility] Comment on above: Order Comment: CANCE L PER ALBINO ON PCU @1505 5-6-25 Result Comment: CANC EL PER ALBINO ON PCU 1505 5-6-25 Performed By: #### L 500.4050 #### [facility] [address] [place], [address] GLU Normal 70-99 [facility] Comment on above: Order Comment: CANCE L PER ALBINO ON PCU @1505 5-6-25 Result Comment: CANC EL PER ALBINO ON PCU 1505 5-6-25 Performed By: #### L 500.4050 #### [facility] [address] [place], [address] Potassium Normal 3.3-5.1 [facility] Comment on above: Order Comment: CANCE L PER ALBINO ON PCU @1505 5-6-25 Result Comment: CANC EL PER ALBINO ON PCU 1505 5-6-25 Performed By: #### L 500.4050 #### [facility] [address] [place], [address] T BILI Normal 0.00-1.30 [facility] Comment on above: Order Comment: CANCE L PER ALBINO ON PCU @1505 5-6-25 Result Comment: CANC EL PER ALBINO ON PCU 1505 5-6-25 Performed By: #### L 500.4050 #### [facility] [address] [place], [address] T PROT Normal 5.9-8.4 [facility] Comment on above: Order Comment: CANCE L PER ALBINO ON PCU @1505 5-6-25 Result Comment: CANC EL PER ALBINO ON PCU 1505 5-6-25 Performed By: #### L 500.4050 #### [facility] [address] [place], [address] Comprehensive Metabolic Profil Normal 133-145 [facility] Comment on above: Order Comment: CANCE L PER ALBINO ON PCU @1505 5-6-25 Result Comment: CANC EL PER ALBINO ON PCU 1505 5-6-25 Performed By: #### L 500.4050 #### [facility] [address] [place], [address] Discharge Instructionon 05-0 Discharge Instruction [facility] Medical Records Department [address] [place] [address] Instructions for Home/Discharge Instructions 09/22/24 1340 MR#: [id number] Acct: [id number] Name: NOÉ PINO Rep #: [id number] : 1950 73 From: Apryl Mathew MD PCP: Dr. Allen Jackson MD Status:ADM MARIA E Discharge Instructions Diet Discharge Diet: Low fat / Low cholesterol and 1800 Calorie Control Diet DC O2, CPAP, BIPAP needs Home O2 Discharge instructions: No Dressing / Incision Discharge Activity: Return to Normal Activity Dressing / Incision Call your doctor if your incision/area has: Continuous Slow Oozing, Sudden Increased Bleeding, Increased Pain/ Swelling, Increased Redness and Foul Smelling Discharge Call your doctor if you observe: Fever of 101 or Higher, Coldness, Increased Pain, Numbness or Tingling and Change in Color Follow Up Care Please Follow Up With: Apryl Mathew MD When: 2-4 weeks Test Results: Test results from this visit will be discussed in further detail at your follow-up appointment, if applicable. Discharge Plan Admission Admit Date/Time: 09/22/24 13:37 Attending Provider: Apryl Mathew Primary Care Provider: Allen Jackson Chi Discharge Orders/Prescriptions Prescriptions: New clopidogrel 75 mg Tablet 75 mg PO DAILY Qty: 30 6RF carvedilol 3.125 mg Tablet 3.125 mg PO BID Qty: 60 11RF Continued sevelamer carbonate 800 mg tablet 1,600 mg PO TID Rx Instructions: must administer with a meal/food Triphrocaps 1 mg capsule 1 cap PO DAILY calcitriol 0.25 mcg capsule 0.25 mcg PO DAILY insulin glargine [Lantus Solostar U-100 Insulin] 100 unit/mL (3 mL) insulin pen 25 unit subcut QAM nifedipine 60 mg tablet extended release 24hr 60 mg PO BID atorvastatin 40 mg tablet 40 mg PO QDAY gabapentin 100 mg capsule 100 mg PO QHS pantoprazole 40 mg tablet,delayed release (DR/EC) 40 mg PO QDAY aspirin [Adult Aspirin Regimen] 81 mg tablet,delayed release (DR/EC) 81 mg PO QDAY Qty: 90 3RF Discontinued felodipine 10 mg tablet extended release 24 hr 10 mg PO QDAY Referrals / Follow Up: Allen Jackson Chi, MD [Primary Care Provider] - Disposition Disposition (needs filled in before D/C Order can be placed): Home, Self Care 09/22/24 1343 Apryl Mathew MD CC: Dr. Allen Jackson MD Signed [facility] 09-18-2024 [facility] Office Visit (AGPOB1) NOÉ PINO ([id number]) 1950 M MICHAELA Date Time Provider Department 09/18/24 3:00 PM KALI GIBSON AGPOB1 During your visit today, we recorded the following information about you: Respiration Weight Height 18/minute 67.1 kg 1.727 m Kali Gibson DPM 09/18/2024 11:32 PM Signed DOS: 08/21/24 POD: 4 weeks POV: 3 Procedure: S/p ORIF left ankle fracture This 73 year old male presents for a post op visit. Patient states they are doing well. Pain is well controlled. Has been nonweightbearing to the left lower extremity. Denies any current nausea, vomiting, fever, chills, shortness of breath, chest pain or calf pain. Denies any other pedal complaints PAST MEDICAL HISTORY Diagnosis Date Abnormal stress test Ankle fracture 07/2024 left CKD (chronic kidney disease), stage IV (HCC) Diabetes mellitus (HCC) Type 1 Diabetic polyneuropathy (HCC) Essential hypertension Hypercholesteremia Hyperparathyroidism (HCC) Hypotension Known medical problems peritoneal dialysis Known medical problems edema Known medical problems hyperlipidemia Pacemaker 01/2024 Summa placed for sick sinus syndrome Vitamin D deficiency Current Outpatient Medications Medication Sig atorvastatin (LIPITOR) 20 mg tablet Take 20 mg by mouth. TRIPHROCAPS 1 mg capsule Take 1 capsule by mouth once daily. calcitriol (ROCALTROL) 0.5 mcg capsule Take 0.5 mcg by mouth. docusate sodium (COLACE) 100 mg capsule Take 100 mg by mouth. felodipine ER (PLENDIL) 10 mg 24 hr tablet Take 10 mg by mouth. fenofibrate (LOFIBRA) 200 mg capsule Take 200 mg by mouth. ferrous sulfate 325 mg (65 mg iron) tablet Take 325 mg by mouth. gabapentin (NEURONTIN) 100 mg capsule Take 1 capsule by mouth. gentamicin 0.1% 0.1 % cream Apply to affected area. LANTUS SOLOSTAR U-100 INSULIN 100 unit/mL (3 mL) lactulose 10 gram/15 mL solution Take 20 g by mouth. metoprolol succinate ER (TOPROL XL) 50 mg 24 hr tablet Take 1 tablet by mouth once daily. pantoprazole DR (PROTONIX) 20 mg tablet Take 40 mg by mouth. sevelamer carbonate (RENVELA) 800 mg tablet Take 1,600 mg by mouth. No current facility-administere d medications for this visit. ALLERGIES No Known Allergies Objective: Patient presents nonweightbearing to left leg. Dressing is dry, clean, and intact with minimal strike through noted. Pt visit completed with aid of bolivian interpretor. Problem focus examination to the left lower extremity: Incision site is well coapted without evidence of dehiscence. Scattered small eschars overlying lateral ankle incisions; no erythema or active drainage noted. Mild edema surrounding surgical site. No drainage. No lymphadenopathy. No lymphangitis. No surrounding cellulitis. No signs of infection. No pain to palpation of the surgical site lateral ankle. No pain medially or anteriorly. Patient has no pain to palpation of calf. The calf is soft, supple and nontender without evidence of DVT. Negative Joyce's test. Satisfactory alignment is noted. Pedal pulses are palpable. Capillary refill time is less than three seconds to all digits. Protective sensation is absent to all pedal sites. Radiographs: 3 views left ankle were obtained and evaluated. Radiographic evaluation: Evidence of previous ORIF left ankle fracture. Alignment maintained. Hardware intact without breakage or loosening noted. Ankle mortise WNL. Fibula out to length. Assessment: Satisfactory post-operative progress Plan: The patient was educated on clinical examination findings, postoperative prognosis and protocol. All questions were answered to patient's apparent satisfaction. - Tubigrip applied. -- Transition to partial weight bearing in pneumatic boot with assistance of crutches slowly and as tolerated for the next 2 weeks. - Follow-up in 2 weeks with repeat x-ray; possible transition to full weight bearing in boot at that time. - May shower but no soaking - Instructed patient to contact the office if the dressing becomes wet to arrange for a change. Follow up 2 weeks with xrays Kali Gibson DPM Allergies As of Date: 09/18/2024 (No Known Allergies) Date Reviewed: 09/18/2024 Reviewed by: Kali Gibson DPM - Fully Assessed Reason for Visit: Post Op [174] Cmt: Pt states that at times he has pain and throbbing Established Patient [175] Cmt: Pt states that at times he has pain and throbbing Pain [78] Cmt: Pt states that at times he has pain and throbbing Primary Visit Diagnosis:Post-opera tive state [Z98.890] Other Visit Diagnoses:Trimalleol ar fracture of ankle, closed, left, initial encounter [S82.712A] Type 1 diabetes mellitus with diabetic polyneuropathy (HCC) [E10.42] CKD (chronic kidney disease) stage V requiring chronic dialysis (HCC) [N18.6, Z99.2] Order(s):XR ANKLE GENERAL 3V AP/LAT/OBL LEFT [[id number]] Orde (more content not included)... Normal [facility] XR Ankle - left AP and Later al and obliqueon 09-18-2024 [facility] Radiology [facility]) [facility] pt [facility]for pac[facility], she states [place] Absolute lymphocyte countOrd ered By: Apryl Mathew on 09-17-2024 Lymphocytes Auto (Unsp spec) [#/Vol] 2.01 10*3/uL 0.83-4.51 [facility] Absolute neutrophil countOrd ered By: Apryl Mathew on 09-17-2024 Neutrophils (Bld) [#/Vol] 3.8 10*3/uL 2.0-7.7 [facility] Anion gap in Serum or Plasma Ordered By: Apryl Mathew on 09-17-2024 Anion gap [Moles/Vol] 14 mmol/L 5-15 [facility] Automated blood erythrocyte countOrdered By: Apryl Mathew on 09-17-2024 RBC (Bld) [#/Vol] 3.54 10*6/uL Low 4.6-6.2 [facility] Comment on above: Performed By: #### L 100.0100, L300.3900, L500.2500, L500.4100 #### [facility] [address] [place], [address] Automated blood hematocrit ( percentage)Ordered By: Apryl Mathew on 09-17-2024 Hematocrit (Bld) [Volume fraction] 33.3 % Low 40-54 [facility] Comment on above: Performed By: #### L 100.0100, L300.3900, L500.2500, L500.4100 #### [facility] [address] [place], [address] Automated lymphocyte count a s percentage of total leukocytesOrdered By: Apryl Mathew on 09-17-2024 Lymphocytes/100 WBC Auto (Unsp spec) 29.0 % 19-41 [facility] BUN/creatinine ratioOrdered By: Apryl Mathew on 09-17-2024 Urea nitrogen/Creatinine [Mass ratio] 5.2 mg/mg Low 10-20 [facility] Basic Metabolic Profile (BMP )on 09-17-2024 BUN/CRE 5.2 RATIO Low 10-20 [facility] Comment on above: Performed By: #### L 100.0100, L300.3900, L500.2500, L500.4100 #### [facility] [address] [place], [address] Calcium [Mass/Vol] 10.5 mg/dL Normal 7.6-11.0 [facility] Comment on above: Performed By: #### L 100.0100, L300.3900, L500.2500, L500.4100 #### [facility] [address] [place], [address] Chloride [Moles/Vol] 96 mmol/L Low 98-108 [facility] Comment on above: Performed By: #### L 100.0100, L300.3900, L500.2500, L500.4100 #### [facility] [address] [place], [address] CO2 [Moles/Vol] 25.9 mmol/L Normal 21.0-32.0 [facility] Comment on above: Performed By: #### L 100.0100, L300.3900, L500.2500, L500.4100 #### [facility] [address] [place], [address] Creatinine [Mass/Vol] 9.44 mg/dL Invalid Interpretation Code 0.70-1.20 [facility] Comment on above: Result Comment: Crit ical Result(s) Called to Hilton VILLASENOR ([facility]): by Zulay:??Results read back by same. Performed By: #### L 100.0100, L300.3900, L500.2500, L500.4100 #### [facility] [address] [place], [address] GAP 14 Normal 5-15 [facility] Comment on above: Performed By: #### L 100.0100, L300.3900, L500.2500, L500.4100 #### [facility] [address] [place], [address] GFR/1.73 sq M.predicted among non-blacks MDRD (S/P/Bld) [Vol rate/Area] 5 mL/min/{1.73_m2} Low >60 [facility] Comment on above: Result Comment: mL/m in/1.73m2 CKD-EPI Creatinine Equation (2020) Performed By: #### L 100.0100, L300.3900, L500.2500, L500.4100 #### [facility] [address] [place], [address] Glucose [Mass/Vol] 103 mg/dL High 70-99 [facility] Comment on above: Performed By: #### L 100.0100, L300.3900, L500.2500, L500.4100 #### [facility] [address] [place], [address] Potassium [Moles/Vol] 4.1 mmol/L Normal 3.3-5.1 [facility] Comment on above: Performed By: #### L 100.0100, L300.3900, L500.2500, L500.4100 #### [facility] [address] [place], [address] Sodium [Moles/Vol] 136 mmol/L Normal 133-145 [facility] Comment on above: Performed By: #### L 100.0100, L300.3900, L500.2500, L500.4100 #### [facility] [address] [place], [address] Urea nitrogen [Mass/Vol] 50 mg/dL High 4-19 [facility] Comment on above: Performed By: #### L 100.0100, L300.3900, L500.2500, L500.4100 #### [facility] [address] [place], [address] Basophil percentageOrdered B y: Apryl Mathew on 09-17-2024 Basophils/100 WBC (Bld) 0.9 % Normal 0-1 [facility] Comment on above: Performed By: #### L 100.0100, L300.3900, L500.2500, L500.4100 #### [facility] [address] [place], [address] CBC W/Diff, Automatedon Absolute Lymph 2.01 X10 3/uL Normal 0.83-4.51 [facility] Comment on above: Performed By: #### L 100.0100, L300.3900, L500.2500, L500.4100 #### [facility] [address] [place], [address] Absolute Neut 3.8 X10 3/uL Normal 2.0-7.7 [facility] Comment on above: Performed By: #### L 100.0100, L300.3900, L500.2500, L500.4100 #### [facility] [address] [place], [address] IG% 0.700 Normal 0.0-0.9 [facility] Comment on above: Result Comment: IG% - Immature Granulocytes (promyelocytes, myelocytes and metamyelocytes) > 1% indicates that a LEFT SHIFT is Present. Performed By: #### L 100.0100, L300.3900, L500.2500, L500.4100 #### [facility] [address] [place], [address] Lymphocytes/100 WBC (Bld) 29.0 % Normal 19-41 [facility] Comment on above: Performed By: #### L 100.0100, L300.3900, L500.2500, L500.4100 #### [facility] [address] [place], [address] Nucleated RBC (Bld) [#/Vol] 0 10*3/uL Normal 0-5 [facility] Comment on above: Performed By: #### L 100.0100, L300.3900, L500.2500, L500.4100 #### [facility] [address] [place], [address] RDW SD 43.5 fl Normal 35.1-43.9 [facility] Comment on above: Performed By: #### L 100.0100, L300.3900, L500.2500, L500.4100 #### [facility] [address] [place], [address] Calculated very low density lipoprotein (VLDL) cholesterol measurementOrdered By: Apryl Mathew on 09-17-2024 Calculated very low density lipoprotein (VLDL) cholesterol measurement 54 mg/dL High 5-40 [facility] Carbon dioxide, total [Moles /volume] in Central venous bloodOrdered By: Apryl Mathew on 09-17-2024 CO2 [Moles/Vol] 25.9 mmol/L 21.0-32.0 [facility] Chest PA and Lateralon 09-17 Chest PA and Lateral [facility] Imaging Services [address] [place], [place] [address] Chest PA and Lateral MR#: [id number] Acct: [id number] Name: NOÉ PINO Rep #: [id number] : 1950 M 73 From: Simon Joyce MD PCP: Dr. Allen Jackson MD Status: REG CLI Study: Chest PA and Lateral Date of Exam: 09/17/24 Exam# [id number] Ordering Dr: Apryl Mathew MD PROCEDURE: CHEST PA AND LATERAL 09/17/2024 REASON FOR EXAM: PRE-PROCEDURE DIAGNOSTIC TECHNIQUE: Frontal and lateral views of the chest. COMPARISON: January 17, 2024 FINDINGS: There is a left-sided cardiac device with wires in position, new compared to the prior. Heart size and mediastinal configuration are within normal limits. There is no focal infiltrate or consolidation. There is no pneumothorax or effusion. Lung volumes are mildly increased. Aortic calcifications are noted. There is no visible acute bony abnormality. RAD/Chest PA and Lateral IMPRESSION: No acute process is identified in the chest. Reading Location: [facility] CC: Dr. Apryl Mathew MD; Dr. Allen Jackson MD Ledge Man: Signed Normal [facility] Chloride assayOrdered By: Tc Mathew on 09-17-2024 Chloride [Moles/Vol] 96 mmol/L Low 98-108 [facility] Eosinophil percentageOrdered By: Apryl Mathew on 09-17-2024 Eosinophils/100 WBC (Bld) 3.9 % Normal 0-5 [facility] Comment on above: Performed By: #### L 100.0100, L300.3900, L500.2500, L500.4100 #### [facility] [address] [place], [address] Erythrocyte distribution wid th ratioOrdered By: Apryl Mathew on 09-17-2024 Erythrocyte distribution width (RBC) [Ratio] 12.5 % Normal 11.6-14.6 [facility] Comment on above: Performed By: #### L 100.0100, L300.3900, L500.2500, L500.4100 #### [facility] [address] [place], [address] Erythrocyte distribution wid th standard deviationOrdered By: Apryl Mathew on 09-17-2024 Erythrocyte distribution width (RBC) [Ratio] 43.5 fl 35.1-43.9 [facility] Glomerular filtration rate ( GFR) estimation/1.73 sq m using serum, plasma, or whole bOrdered By: Apryl Mathew on 09-17-2024 GFR/1.73 sq M.predicted among non-blacks MDRD (S/P/Bld) [Vol rate/Area] 5 mL/min/{1.73_m2} Low >60 [facility] Comment on above: mL/min/1.73m2 CKD-EP I Creatinine Equation (2020) Hemoglobin measurementOrdere d By: Apryl Mathew on 09-17-2024 Hemoglobin (Bld) [Mass/Vol] 11.0 g/dL Low 13.0-16.5 [facility] Comment on above: Performed By: #### L 100.0100, L300.3900, L500.2500, L500.4100 #### [facility] [address] [place], [address] Immature granulocytes/100 WB C Auto (Bld)Ordered By: Apryl Mathew on 09-17-2024 Immature granulocytes/100 WBC (Bld) 0.700 % 0.0-0.9 [facility] Comment on above: IG% - Immature Granu locytes (promyelocytes, myelocytes and metamyelocytes) > 1% indicates that a LEFT SHIFT is Present. International normalized rat io (INR) calculationOrdered By: Apryl Mathew on 09-17-2024 INR Coag (Bld) [Relative time] 1.1 {INR} [facility] LDL calc ser/plasOrdered By: Apryl Mathew on 09-17-2024 Cholesterol in LDL [Mass/Vol] 75 mg/dL [facility] Comment on above: Dlzolzdwzn=676-722 m g/dL & Higher Phom=623 mg/dL or greater Lipid Profileon 09-17-2024 CHOL:HDL 4.29 Normal [facility] Comment on above: Performed By: #### L 100.0100, L300.3900, L500.2500, L500.4100 #### [facility] [address] [place], [address] Cholesterol [Mass/Vol] 168 mg/dL Normal <=200 [facility] Comment on above: Result Comment: Chol esterol level, Desirable <200 mg/dL Borderline high cholesterol 200-239 mg/dL High cholesterol >=240 mg/dL Recommendations of the NCEP Adult Treatment Panel for the following risk-cutoff thresholds for the [place] population. Performed By: #### L 100.0100, L300.3900, L500.2500, L500.4100 #### [facility] [address] [place], [address] Cholesterol in HDL [Mass/Vol] 39 mg/dL Low [facility] Comment on above: Result Comment: Wendy onal Cholesterol Education Program (NCEP) guidelines: <40 mg/dL: Low HDL-cholesterol (major risk factor for CHD) >= 60 mg/dL: High HDL-cholesterol (negative risk factor for CHD) HDL-cholesterol is affected by a number of factors, e.g. smoking, exercise, hormones, sex and age. Performed By: #### L 100.0100, L300.3900, L500.2500, L500.4100 #### [facility] [address] [place], [address] Cholesterol in LDL [Mass/Vol] 75 mg/dL Normal [facility] Comment on above: Result Comment: Bord jgkxjg=102-812 mg/dL Higher Eelx=094 mg/dL or greater Performed By: #### L 100.0100, L300.3900, L500.2500, L500.4100 #### [facility] [address] [place], [address] Cholesterol in VLDL [Mass/Vol] 54 mg/dL High 5-40 [facility] Comment on above: Performed By: #### L 100.0100, L300.3900, L500.2500, L500.4100 #### [facility] [address] [place], [address] Triglyceride [Mass/Vol] 270 mg/dL High [facility] Comment on above: Result Comment: The drugs N-Acetylcysteine and Metamizole may falsely depress this assay. Normal range: <150 mg/dL Borderline High: 150-199 mg/dL High: 200-499 mg/dL Very High: >500 mg/dL Performed By: #### L 100.0100, L300.3900, L500.2500, L500.4100 #### [facility] [address] [place], [address] MCV (mean corpuscular volume ) determinationOrdered By: Apryl Mathew on 09-17-2024 MCV (RBC) [Entitic vol] 94.1 fL High 80-94 [facility] Comment on above: Performed By: #### L 100.0100, L300.3900, L500.2500, L500.4100 #### [facility] [address] [place], [address] Mean corpuscular hemoglobin (MCH) determinationOrdered By: Apryl Mathew on 09-17-2024 MCH (RBC) [Entitic mass] 31.1 pg Normal 27.0-32.0 [facility] Comment on above: Performed By: #### L 100.0100, L300.3900, L500.2500, L500.4100 #### [facility] [address] [place], [place], [address] Mean corpuscular hemoglobin concentration (MCHC) determinationOrdered By: Apryl Mathew on 09-17-2024 MCHC (RBC) [Mass/Vol] 33.0 g/dL Normal 32-36 [facility] Comment on above: Performed By: #### L 100.0100, L300.3900, L500.2500, L500.4100 #### [facility] [address] [place], [place], [address] Mean platelet volume determi nationOrdered By: Apryl Mathew on 09-17-2024 Platelet mean volume (Bld) [Entitic vol] 10.0 fL Normal 6.2-12.0 [facility] Comment on above: Performed By: #### L 100.0100, L300.3900, L500.2500, L500.4100 #### [facility] [address] [place], [place], [id number] [phone] Monocyte percentageOrdered B y: Apryl Mathew on 09-17-2024 Monocytes/100 WBC (Bld) 10.3 % High 0-10 [facility] Comment on above: Performed By: #### L 100.0100, L300.3900, L500.2500, L500.4100 #### [facility] [address] [place], [place], [id number] [phone] Neutrophil percentageOrdered By: Apryl Mathew on 09-17-2024 Neutrophils/100 WBC (Bld) 55.2 % Normal 47-70 [facility] Comment on above: Performed By: #### L 100.0100, L300.3900, L500.2500, L500.4100 #### [facility] [address] [place], [place], [phone] Nucleated red blood cell per centageOrdered By: Apryl Mathew on 09-17-2024 Nucleated RBC/100 WBC (Bld) [Ratio] 0 % 0-5 [facility] Platelet countOrdered By: Tc Mathew on 09-17-2024 Platelets (Bld) [#/Vol] 236 10*3/uL Normal 150-450 [facility] Comment on above: Performed By: #### L 100.0100, L300.3900, L500.2500, L500.4100 #### [facility] [address] [place], [address] Potassium measurement (mass/ volume)Ordered By: Apryl Mathew on 09-17-2024 Potassium (Unsp spec) [Mass/Vol] 4.1 mmol/L 3.3-5.1 [facility] Prothrombin Time w/INRon INR Coag (PPP) [Relative time] 1.1 {INR} Normal [facility] Comment on above: Performed By: #### L 100.0100, L300.3900, L500.2500, L500.4100 #### [facility] [address] [place], [address] PT Coag (PPP) [Time] 13.9 s Normal 11.7-14.9 [facility] Comment on above: Performed By: #### L 100.0100, L300.3900, L500.2500, L500.4100 #### [facility] [address] [place], [address] Prothrombin timeOrdered By: Apryl Mathew on 09-17-2024 PT Coag (PPP) [Time] 13.9 s 11.7-14.9 [facility] Screening total cholesterol/ high density lipoprotein (HDL) cholesterol ratioOrdered By: Apryl Mathew on 09-17-2024 Cholesterol.total/Shoshana sterol in HDL [Mass ratio] 4.29 {ratio} [facility] Serum creatinine measurement (mass/volume)Ordered By: Apryl Mathew on 09-17-2024 Creatinine [Mass/Vol] 9.44 mg/dL High 0.70-1.20 [facility] Comment on above: Critical Result(s) C alled to Hilton RN ([facility]): by Zulay: Results read back by same. Serum glucose measurement (m ass/volume)Ordered By: Apryl Mathew on 09-17-2024 Glucose [Mass/Vol] 103 mg/dL High 70-99 [facility] Serum or plasma calcium ian urement (mass/volume)Ordered By: Apryl Mathew on 09-17-2024 Calcium [Mass/Vol] 10.5 mg/dL 7.6-11.0 [facility] Serum or plasma cholesterol in HDL measurement (mass/volume)Ordered By: Apryl Mathew on 09-17-2024 Cholesterol in HDL [Mass/Vol] 39 mg/dL Low >40 [facility] Comment on above: National Cholesterol Education Program (NCEP) guidelines:<40 mg/dL: Low HDL-cholesterol (major risk factor for CHD)>= 60 mg/dL: High HDL-cholesterol (negative risk factor for CHD)HDL-cholesterol is affected by a number of factors, e.g. smoking, exercise, hormones, sex and age. Serum or plasma cholesterol measurement (mass/volume)Ordered By: Apryl Mathew on 09-17-2024 Cholesterol [Mass/Vol] 168 mg/dL <201 [facility] Comment on above: Cholesterol level, D esirable <200 mg/dLBorderline high cholesterol 200-239 mg/dLHigh cholesterol >=240 mg/dLRecommendations of the NCEP Adult Treatment Panel for the following risk-cutoff thresholds for the [place] population. Serum or plasma urea nitroge n measurement (mass/volume)Ordered By: Apryl Mathew on 09-17-2024 Urea nitrogen [Mass/Vol] 50 mg/dL High 4-19 [facility] Sodium levelOrdered By: Javier Mathew on 09-17-2024 Sodium [Moles/Vol] 136 mmol/L 133-145 [facility] Triglycerides measurementOrd ered By: Apryl Mathew on 09-17-2024 Triglyceride [Mass/Vol] 270 mg/dL High <199 [facility] Comment on above: The drugs N-Acetylcy steine and Metamizole may falsely depress this assay. Normal range: <150 mg/dLBorderline High: 150-199 mg/dLHigh: 200-499 mg/dLVery High: >500 mg/dL White blood cell (WBC) count Ordered By: Apryl Mathew on 09-17-2024 WBC (Bld) [#/Vol] 6.9 10*3/uL Normal 4.4-11.0 [facility] Comment on above: Performed By: #### L 100.0100, L300.3900, L500.2500, L500.4100 #### [facility] [address] [place], [address] Cardiology Visit Reporton Cardiology Visit Report [facility] [address] [place], [place] [address] OFFICE VISIT Date of Service: 09/16/24 MR#: [id number] Acct: [id number] Name: JOSH HUGHESNOÉ Rep #: [id number] : 1950 Provider: Dr. Apryl Mathew MD Age/Sex: 73/M [place] [facility] [place] Status: Signed HPI HPI History of Present Illness Details: This pleasant gentleman has past medical history significant for diabetes mellitus, end-stage renal disease on peritoneal dialysis, sick sinus syndrome status post permanent pacemaker placement and hypertension. He has had a Lexiscan stress Myoview done as part of his preop workup for putting him on the renal transplant list. It is been reported back as abnormal. Subsequently he is here for further evaluation and management. Patient was interviewed using a mortgage underwriter as he does not speak [place]an but only [place] Islander. He denies any chest pains either at rest or with exertion. Denies any shortness of breath. No orthopnea. No PND. No ankle edema. He recently fell and injured his left foot which has since been in a surgical boot. Patient's Lexiscan stress test was reported back as showing diffuse ST depressions with transient ST elevation in aVR. Small reversible perfusion abnormality of anterior and anterolateral wall was r eported. 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 Language: [place] Islander Accompanied by: Is patient in pain?: No Allergies No Known Allergies Allergy (Verified 09/16/24 09:12) Medications ???Medication ???Instructions ???Recorded ???Confirmed ???Type calcitriol 0.25 mcg capsule 0.25 mcg PO DAILY 10/04/23 5 History insulin glargine 100 unit/mL (3 25 unit subcut QAM 10/04/23 History mL) subcutaneous pen (Lantus Solostar U-100 Insulin) sevelamer carbonate 800 mg tablet 1,600 mg PO TID 10/04/23 09/16/24 History vitamin B complex and vitamin C 1 cap PO DAILY 10/04/23 09/16/24 H istory no.20-folic acid 1 mg capsule (Triphrocaps) atorvastatin 40 mg tablet 40 mg PO QDAY 09/08/24 09/16/24 Hi story gabapentin 100 mg capsule 100 mg PO QHS 09/08/24 09/16/24 Hi story nifedipine 60 mg tablet,extended 60 mg PO BID 09/08/24 09/16/24 His tory release 24 hr felodipine 10 mg tablet,extended 10 mg PO QDAY 09/16/24 09/16/24 Hi story release 24 hr pantoprazole 40 mg tablet,delayed 40 mg PO QDAY 09/16/24 09/16/24 H istory release Ejection fraction %: 54 Have you fallen in the past year?: Yes (fx to LLE) [facility] Medical History (Updated 09/16/24 @ 10:[address] Apryl Mathew MD) Edema, unspecified Vitamin D deficiency, unspecified Proteinuria due to type 2 diabetes mellitus Weakness Hypotension Near syncope Bradycardia History of pacemaker End stage renal disease on dialysis Sick sinus syndrome Type 2 diabetes mellitus with hyperglycemia Hyperparathyroidism Hyperlipidemia, unspecified Diabetic polyneuropathy Abdominal fistula Hypercholesteremia Essential hypertension Presence of permanent cardiac pacemaker Wears glasses Insulin dependent diabetes mellitus Anemia High cholesterol Dietary restriction Gastric reflux Non-smoker Hypertension History of peritoneal dialysis End stage chronic kidney disease Positive colorectal cancer screening using Cologuard test Surgical History History of cataract surgery Family History Brother Diabetes Father Diabetes Social History Smoking Status: Never smoker alcohol intake: never substance use type: does not use ROS Const Const: Negative for fatigue, weakness, headache(s) or weight gain ENT ENT: Positive for Nosebleed/epistaxis; Negative for headache(s), dizziness or balance problems Cardio Chest Pain: No Palpitations: No Edema: None Muscle aches with walking: None Resp Respiratory: Negative for SOB with activity, SOB at rest or SOB orthopnea SOB lying down GI GI: Positive for heartburn (taking protonix); Negative nausea or vomiting Musc Musc: Negative for muscle aches/ myalgia, muscle weakness, joint pain or balance problems Neuro Neuro: Negative for dizziness, lightheadedness, near syncope, syncope, headache(s) or weakness Endo Endo: Negative for fatigue Cardiology Exam Const Appearance: comfortable and no acute distress Nutritional Appearance: well nourished Neck Neck: no JVD Caroti (more content not included)... [facility] Office Visit (AGPOB1) NOÉ PINO ([id number]) 1950 M [facility] [place] Date Time Provider Department 09/04/24 1:00 PM KALI GIBSON AGPOB1 During your visit today, we recorded the following information about you: Respiration Weight Height 18/minute 67.1 kg 1.727 m Kali Gibson DPM 09/04/2024 2:01 PM Signed DOS: 08/21/24 POD: 14 days POV: 2 Procedure: S/p ORIF left ankle fracture This 73 year old male presents for a post op visit. Patient states they are doing well. Pain is well controlled by [place]. Just taking as needed at this time. He is currently using prescribed analgesics and does not require a refill. Has been nonweightbearing to the left lower extremity. Denies any current nausea, vomiting, fever, chills, shortness of breath, chest pain or calf pain. Denies any other pedal complaints PAST MEDICAL HISTORY Diagnosis Date Abnormal stress test Ankle fracture 07/2024 left CKD (chronic kidney disease), stage IV (HCC) Diabetes mellitus (HCC) Type 1 Diabetic polyneuropathy (HCC) Essential hypertension Hypercholesteremia Hyperparathyroidism (HCC) Hypotension Known medical problems peritoneal dialysis Known medical problems edema Known medical problems hyperlipidemia Pacemaker 01/2024 Summa placed for sick sinus syndrome Vitamin D deficiency Current Outpatient Medications Medication Sig atorvastatin (LIPITOR) 20 mg tablet Take 20 mg by mouth. TRIPHROCAPS 1 mg capsule Take 1 capsule by mouth once daily. calcitriol (ROCALTROL) 0.5 mcg capsule Take 0.5 mcg by mouth. docusate sodium (COLACE) 100 mg capsule Take 100 mg by mouth. felodipine ER (PLENDIL) 10 mg 24 hr tablet Take 10 mg by mouth. fenofibrate (LOFIBRA) 200 mg capsule Take 200 mg by mouth. ferrous sulfate 325 mg (65 mg iron) tablet Take 325 mg by mouth. gabapentin (NEURONTIN) 100 mg capsule Take 1 capsule by mouth. gentamicin 0.1% 0.1 % cream Apply to affected area. LANTUS SOLOSTAR U-100 INSULIN 100 unit/mL (3 mL) lactulose 10 gram/15 mL solution Take 20 g by mouth. metoprolol succinate ER (TOPROL XL) 50 mg 24 hr tablet Take 1 tablet by mouth once daily. pantoprazole DR (PROTONIX) 20 mg tablet Take 40 mg by mouth. sevelamer carbonate (RENVELA) 800 mg tablet Take 1,600 mg by mouth. No current facility-administere d medications for this visit. ALLERGIES No Known Allergies Objective: Patient presents nonweightbearing to left leg. Dressing is dry, clean, and intact with minimal strike through noted. Pt visit completed with aid of bolivian interpretor. Problem focus examination to the left lower extremity: Incision site is well coapted without evidence of dehiscence. Mild erythema and edema surrounding surgical site. No drainage. No lymphadenopathy. No lymphangitis. No surrounding cellulitis. No signs of infection. Appropriate pain to palpation of the surgical site lateral ankle. No pain medially or anteriorly. Patient has no pain to palpation of calf. The calf is soft, supple and nontender without evidence of DVT. Negative Joyce's test. Satisfactory alignment is noted. Pedal pulses are palpable. Capillary refill time is less than three seconds to all digits. Protective sensation is absent to all pedal sites. Radiographs: 3 views left foot were obtained and evaluated. Radiographic evaluation: Evidence of previous ORIF left ankle fracture. Hardware intact without breakage or loosening noted. Ankle mortise WNL. Fibula out to length. Assessment: Satisfactory post-operative progress Plan: The patient was educated on clinical examination findings, postoperative prognosis and protocol. All questions were answered to patient's apparent satisfaction. - Bandage removed and new dressing applied. - Sutures removed today. - Tubigrip and KEV wrap applied. - Start use of boot. Remove boot twice daily for ROM exercises. - Patient to continue nonweightbearing to the operative extremity. - May shower but no soaking - Instructed patient to contact the office if the dressing becomes wet to arrange for a change. Follow up 2 weeks with xrays SHANTEL Blanchard Lauren, DPM 09/04/2024 1:30 PM Addendum Continue nonweightbearing to the left ankle in boot. Remove boot for range of motion exercises twice daily No soaking - Continue usando la bota oumar 2 semanas mas. - Comience a dejar de usar la bota gradualmente despues de 2 semanas, comenzando con breves periodos de caminata en casa. - Vigile si hay molestias ouamr la transicion; si experimenta dolor significativo, reanude el uso de la bota y minimice la actividad. - Danielle de seguimiento en 4-5 semanas para shikha radiografia final que confirme la curacion completa. Allergies As of Date: 09/04/2024 (No Known Allergies) Date Reviewed: 09/04/2024 Reviewed by: Kali Gibson DPM - Fully Assessed Reason for Visit: Post Op [17 (more content not included)... Normal [facility] XR Ankle - left AP and Later al and obliqueon 09-04-2024 [facility] Radiology Study observation (narrative) [facility] CNOVon 08-28-2024 [facility] Office Visit (AGPOB1) NOÉ PINO ([id number]) 1950 M [facility] [place] Date Time Provider Department 08/28/24 10:30 AM KALI GIBSON AGPOB1 During your visit today, we recorded the following information about you: Respiration Weight Height 20/minute 67.1 kg 1.727 m Kali Gibson DPM 08/28/2024 5:12 PM Signed DOS: 08/21/24 POD: 7 days POV: 1 Procedure: S/p ORIF left ankle fracture This 73 year old male presents for a post op visit. Patient states they are doing well. Pain is well controlled by [place]. Noé reports occasional mild pulling sensations at the surgical site but denies significant pain. He is currently using prescribed analgesics and does not require a refill. Has been nonweightbearing to the left lower extremity. Denies any current nausea, vomiting, fever, chills, shortness of breath, chest pain or calf pain. Denies any other pedal complaints PAST MEDICAL HISTORY Diagnosis Date Abnormal stress test Ankle fracture 07/2024 left CKD (chronic kidney disease), stage IV (HCC) Diabetes mellitus (HCC) Type 1 Diabetic polyneuropathy (HCC) Essential hypertension Hypercholesteremia Hyperparathyroidism (HCC) Hypotension Known medical problems peritoneal dialysis Known medical problems edema Known medical problems hyperlipidemia Pacemaker 01/2024 Summa placed for sick sinus syndrome Vitamin D deficiency Current Outpatient Medications Medication Sig HYDROcodone-acetamin ophen (NORCO) 5-325 mg per tablet Take 1 tablet by mouth every 8 hours as needed for pain for up to 7 days. atorvastatin (LIPITOR) 20 mg tablet Take 20 mg by mouth. TRIPHROCAPS 1 mg capsule Take 1 capsule by mouth once daily. calcitriol (ROCALTROL) 0.5 mcg capsule Take 0.5 mcg by mouth. docusate sodium (COLACE) 100 mg capsule Take 100 mg by mouth. felodipine ER (PLENDIL) 10 mg 24 hr tablet Take 10 mg by mouth. fenofibrate (LOFIBRA) 200 mg capsule Take 200 mg by mouth. ferrous sulfate 325 mg (65 mg iron) tablet Take 325 mg by mouth. gabapentin (NEURONTIN) 100 mg capsule Take 1 capsule by mouth. gentamicin 0.1% 0.1 % cream Apply to affected area. LANTUS SOLOSTAR U-100 INSULIN 100 unit/mL (3 mL) lactulose 10 gram/15 mL solution Take 20 g by mouth. metoprolol succinate ER (TOPROL XL) 50 mg 24 hr tablet Take 1 tablet by mouth once daily. pantoprazole DR (PROTONIX) 20 mg tablet Take 40 mg by mouth. sevelamer carbonate (RENVELA) 800 mg tablet Take 1,600 mg by mouth. No current facility-administere d medications for this visit. ALLERGIES No Known Allergies Objective: Patient presents nonweightbearing to left leg. Dressing is dry, clean, and intact with normal strike through noted. Pt visit completed with aid of bolivian interpretor. Problem focus examination to the left lower extremity: Incision site is well coapted without evidence of dehiscence. Mild erythema and edema surrounding surgical site. No drainage. No lymphadenopathy. No lymphangitis. No surrounding cellulitis. No signs of infection. Appropriate pain to palpation of the surgical site lateral ankle. Minimal pain medially or anteriorly. Patient has no pain to palpation of calf. The calf is soft, supple and nontender without evidence of DVT. Negative Joyce's test. Satisfactory alignment is noted. Pedal pulses are palpable. Capillary refill time is less than three seconds to all digits. Protective sensation is absent to all pedal sites. Assessment: Satisfactory post-operative progress Plan: The patient was educated on clinical examination findings, postoperative prognosis and protocol. All questions were answered to patient's apparent satisfaction. - Bandage removed and new dressing applied. - Well padded posterior splint applied. - Patient to continue nonweightbearing to the operative extremity. - Advised patient to keep the splint dry; recommended use of a cast protector for showering. - Instructed patient to contact the office if the dressing becomes wet to arrange for a change. Follow up 1 week for possible suture removal. Kali Gibson DPM Allergies As of Date: 08/28/2024 (No Known Allergies) Date Reviewed: 08/28/2024 Reviewed by: Avelina Sanchez MA - Fully Assessed Reason for Visit: Post Op [174] Established Patient [175] Follow Up [171] Pain [78] Primary Visit Diagnosis:Post-opera tive state [Z98.890] Other Visit Diagnoses:Trimalleol ar fracture of ankle, closed, left, initial encounter [S82.522A] Type 1 diabetes mellitus with diabetic polyneuropathy (HCC) [E10.42] CKD (chronic kidney disease) stage V requiring chronic dialysis (HCC) [N18.6, Z99.2] Order(s):APPLY LOWER LEG SPLINT [99829LPD] Order #: [id number] Prescriptions as of 08/28/2024 - HYDROcodone-acetamin ophen (NORCO) 5-325 mg per tablet Take 1 tablet by mouth every 8 hours as needed for pain for up to 7 days. - atorvastati (more content not included)... [facility] ANES POSTPROC EVALon 025 ANES POSTPROC EVAL HNO ID: [id number] Author: LUDIVINA PAYTON MD Service: Anesthesiology Author Type: Anesthesiologist Type: Anesthesia Postprocedure Evaluation Filed: 08/21/2024 15:01 Note Text: POST ANESTHESIA EVALUATION NOTE : 1950 Procedure Summary Date: 08/21/24 Room / Location: [place] OR / [place] OR Anesthesia Start: 1006 Anesthesia Stop: 1149 Procedure: ORIF ANKLE TRIMALLEOLAR, WITH FIXATION POSTERIOR LIP, left (Left: Ankle) Diagnosis: Closed trimalleolar fracture of left ankle, initial encounter (Closed trimalleolar fracture of left ankle, initial encounter [S82.222Q]) Surgeons: Kali Gibson DPM Responsible Provider: Ludivina Payton MD Anesthesia Type: general ASA Status: 4 Anesthesia Type: general Airway Type: ETT Last Vitals Vitals Value Taken Time BP 161/68 08/21/24 1230 Temp 36.2 ?C (97.2 ?F) 08/21/24 1226 HR SpO2 60 08/21/24 1245 Resp 13 08/21/24 1245 SpO2 100 % 08/21/24 1245 Post Anesthesia Patient Status Anticipated Disposition: phase 2 then home. Neurological Status: aware and responsive. Pulmonary Status: breathing comfortably on room air Airway Control: returned to baseline unsupported. Cardiovascular Status: stable. Pain Management: clinically adequate - multimodal analgesia pain management approach Postoperative Hydration: acceptable. Intraoperative Events: no significant anesthesia events Post Operative Nausea/Vomiting Status: no significant post operative nausea or vomiting Recommendation: continue current plan of care. Anesthesia Observations No Documentation SIGNATURE: Ludivina Payton MD PATIENT NAME: Noé Hughes DATE: August 21, 2024 TIME: 3:00 PM CSN: [id number] [facility] ANES PRE-OPon 08-21-2024 ANES PRE-OP HNO ID: [id number] Author: LUDIVINA PAYTON MD Service: Anesthesiology Author Type: Anesthesiologist Type: Anesthesia Preprocedure Evaluation Filed: 08/21/2024 10:25 Note Text: ANESTHESIOLOGY DAY OF SURGERY NOTE : 1950 Procedure Information Date/Time: 08/21/24 0940 Procedure: ORIF ANKLE TRIMALLEOLAR, WITH FIXATION POSTERIOR LIP, left (Left: Ankle) Location: [place] OR / [place] OR Surgeons: Kali Gibson DPM Estimated body mass index is 22.5 kg/m? as calculated from the following: Height as of 08/12/24: 172.7 cm (5' 8). Weight as of 08/12/24: 67.1 kg (148 lb). Most recent hematocrit and potassium results: No results found for this basename: HCT,HEMATOCRIT,K,POT ASSIUM Relevant Problems No relevant active problems - HTN - on metop - took yesterday - ESRD on PD at home - being evaluated for kidney transplant at [facility] - DM w/ neuropathy - sick sinus syndrome s/p PPM - [employer] 35% V-paced - myocardial perfusion study 06/2024 - small reversible perfusion defect in aterior and arlene-lateral wall - pt is supposed to get further work-up w/ LHC at [facility], however broke his ankle in the meantime I - PHYSICAL EVALUATION AIRWAY Patient intubated: No. Tracheostomy tube not present Mallampati: III. TM distance: >3 FB. Neck ROM: full ROM without neurological symptoms. Mouth opening: adequate. Short neck: no. Thick neck: no DENTAL Dental findings: missing tooth/teeth, chipped, poor dentition and broken tooth. II - ANESTHESIA PLAN ASA Score: 4 Anesthetic Plan: MAC The patient is not a current smoker. NPO Status: adequate Beta Saw Monitoring Plan Monitoring plan: standard ASA. Post Procedure Analgesic Plan Postoperative analgesic plan: parenteral or oral opioids, multimodal analgesia and peripheral nerve block. Informed Consent Anesthetic risks, benefits, alternatives, personnel and consent discussed: yes. Patient / Responsible Libertarian agrees to proceed: yes Patient / Surrogate agrees to blood products: Yes Potential Anesthesia issues that may suggest increased risk of complications or contraindication to planned procedure:. - given reversible perfusion defect on recent cardiac scan, pt is at higher risk for cardiac decompensation No vitals data found for the desired time range. No current facility-administere d medications on file as of 08/21/2024. Outpatient Medications as of 08/21/2024 Medication Sig atorvastatin (LIPITOR) 20 mg tablet Take 20 mg by mouth. TRIPHROCAPS 1 mg capsule Take 1 capsule by mouth once daily. calcitriol (ROCALTROL) 0.5 mcg capsule Take 0.5 mcg by mouth. docusate sodium (COLACE) 100 mg capsule Take 100 mg by mouth. felodipine ER (PLENDIL) 10 mg 24 hr tablet Take 10 mg by mouth. fenofibrate (LOFIBRA) 200 mg capsule Take 200 mg by mouth. ferrous sulfate 325 mg (65 mg iron) tablet Take 325 mg by mouth. gabapentin (NEURONTIN) 100 mg capsule Take 1 capsule by mouth. gentamicin 0.1% 0.1 % cream Apply to affected area. LANTUS SOLOSTAR U-100 INSULIN 100 unit/mL (3 mL) lactulose 10 gram/15 mL solution Take 20 g by mouth. metoprolol succinate ER (TOPROL XL) 50 mg 24 hr tablet Take 1 tablet by mouth once daily. pantoprazole DR (PROTONIX) 20 mg tablet Take 40 mg by mouth. sevelamer carbonate (RENVELA) 800 mg tablet Take 1,600 mg by mouth. I have interviewed and examined the patient. I have reviewed the medical record and/or the pre-anesthesia evaluation, pertinent labs, and test results. This contains updated information obtained within 48 hours of Surgery/Procedure. SIGNATURE: Ludivina Payton MD PATIENT NAME: Noé Hughes DATE: August 21, 2024 TIME: 8:54 AM CSN: [id number] [facility] BRIEF OP NOTon 08-21-2024 BRIEF OP NOT HNO ID: [id number] Author: KALI GIBSON DPM Service: ? Author Type: Physician Type: Brief Op Note Filed: 08/21/2024 11:49 Note Text: BRIEF OPERATIVE / PROCEDURE NOTE LOG ID: [id number] SURGERY/PROCEDURE DATE: 08/21/2024 INCISION/PROCEDURE START TIME: 10:30 AM INCISION CLOSE/PROCEDURE END TIME: 11:42 AM SURGEON(S)/PROCEDURA LIST(S) AND BLOOD DONOR RECRUITER(S): Surgeons and Role: * Kali Gibson DPM - Primary * Patricia Gutierrez DPM - Resident - Assisting * Bennie Schmid MD - Resident - Assisting No Additional Staff SURGERY/PROCEDURE(S) : ORIF trimalleolar ankle fracture left ankle ANESTHESIA: Monitored Anesthesia Care FINDINGS: Consistent with preop dx ESTIMATED BLOOD LOSS: 15 mls SPECIMENS: None COMPLICATIONS: None IMPLANTS: Implant Name Type Inv. Item Serial No. Supervisor Liquid Yeast Lot No. LRB No. Used Action SCREW 3.5MM 50MM BONE NONLOCKING HEXALOBE STERILE ELBOW - [id number] Screw SCREW 3.5MM 50MM BONE NONLOCKING HEXALOBE STERILE ELBOW ACCUMED Left 1 Implanted SCREW 3.5MM 55MM BONE NONLOCKING HEXALOBE STERILE ELBOW - [id number] Screw SCREW 3.5MM 55MM BONE NONLOCKING HEXALOBE STERILE ELBOW ACCUMED Left 1 Implanted 3.5 mm headless hexalob screw Implant [id number] IMPLANT ACCUMED Left 1 Implanted 3.5mm headless hexalobe screw Implant [id number] IMPLANT ACCUMED Left 1 Implanted ffn 0.4mm end cap Implant [id number] IMPLANT ACCUMED Left 1 Implanted FIBULA NAIL SYS 2 Nail [facility] [id number] Left 1 Implanted CLOSURE TECHNIQUE: Primary PRE-OP/PRE-PROCEDURE DIAGNOSIS: Trimalleolar ankle fracture left ankle POST-OP/POST-PROCEDU RE DIAGNOSIS: Same as Preop Patient was accompanied to the next level of care by a licensed practitioner from the surgical team pending completion of this brief op note (or operative note) SIGNATURE: Kali Gibson DPM PATIENT NAME: Noé Hughes DATE: August 21, 2024 TIME: 11:48 AM [facility] HISTORY PHYSICALon HISTORY PHYSICAL HNO ID: [id number] Author: KALI GIBSON DPM Service: ? Author Type: Physician Type: H&P Filed: 08/21/2024 09:06 Note Text: UPDATED HISTORY AND PHYSICAL EXAMINATION SERVICE DATE: 08/21/2024 SERVICE TIME: 9:05 AM PHYSICAL EXAM MUST BE COMPLETED ON ADMISSION The History and Physical (completed in the past 30 days) has been reviewed and the patient has been examined. The contents accurately reflect the patient's condition with the following additions or revisions since the HANDP was completed. Examination indicates no changes. This HANDP can be found in the Electronic Medical Record/scanned documents dated 08/14/24. SIGNATURE: Kali Gibson DPM PATIENT NAME: Noé Hughes DATE: August 21, 2024 TIME: 9:05 AM [facility] OPERATIVE NOon 08-21-2024 OPERATIVE NO HNO ID: [id number] Author: KALI GIBSON DPM Service: ? Author Type: Physician Type: Operative Report Filed: 08/21/2024 17:19 Note Text: Noé Hughes [id number] Date of surgery: 08/21/2024 PREOPERATIVE DIAGNOSIS: Trimalleolar left ankle fracture POSTOPERATIVE DIAGNOSIS: Trimalleolar left ankle fracture PROCEDURES: Open reduction and internal fixation of trimalleolar left ankle fracture SURGEON: Kali Gibson DPM. ASSISTANTS: Bennie Schmid MD - Resident - Assisting; Patricia Gutierrez DPM - Resident - Assisting ANESTHESIA: General with popliteal block ESTIMATED BLOOD LOSS: 15 mL. MATERIALS: Accumed 3.6mm fibular nail with four 3.5 screws COMPLICATIONS: None. HEMOSTASIS: None INDICATIONS: This is a 73-year-old controlled DM neuropathic male patient with CKD on peritoneal dialysis presenting today for open reduction internal fixation left ankle fracture. The patient fell in the parking lot sustaining a trimalleolar ankle fracture. The patient was subsequently followed up with me in office and discussion was held regarding treatment. Given unstable ankle fracture, recommended open reduction internal fixation left ankle fracture. The patient educated the patient was educated on details of the procedure as well as medically reasonable risks, benefits, complications, post op prognosis and protocol. All questions were answered to their apparent satisfaction. No guarantees were given, nor were they implied. PROCEDURE IN DETAIL: After having received preoperative antibiotics and pneumatic stocking placed on nonoperative limb, the patient was taken to the operative suite where he was placed supine on the operating room table. The patient had received a popliteal block by the anesthesia staff in the preoperative area. Please see anesthesia noted for details regarding this. Following successful administration of MAC anesthesia, attention was directed to the left lower extremity. Attention was then directed overlying the left lower extremity, which was prepped and draped in routine sterile fashion. A time-out was performed confirming correct patient, location, and procedure. Following time-out, attention again was directed to the left lower extremity, given patients CKD, DM with neuropathy, we wanted to minimize the soft tissue dissection and thus elected to proceed with placement of fibular nail. Fluoroscopy was utilized to identify the Attention was directed laterally overlying the fibula where a pointed reduction forcep was placed percutaneously around the fibula to allow for reduction of the fibula fracture. Reduction was not able to be attained percutaneously and thus a small linear incision was made overlying the fracture site of the fibula. Incision was made sharply and then bluntly to the level of the fibula. The fracture was easily noted with posterior lateral displacement. Soft tissue was freed around the fracture site using a freer. A pointed reduction clamp was then inserted within the incision site and the fibula fracture was reduced. Reduction was confirmed both clinically as well as radiographically. Again, due to importance of decreasing soft tissue injury, we elected to proceed with fibular nail placement. A linear incision was then made approximately 1 cm distal to the tip of the fibular. Incision was made sharply and then bluntly with blunt dissection taken down to the tip of the fibula. This was visualized radiographically. A guide wire for the accumed fibular nail was then driven within the fibular canal and across the fracture site. Position of k-wire was confirmed fluoroscopically. The fibular canal was then prepared for insertion of the fibular nail using standard protocol for insertion of this nail. Following reaming of the distal segment of the fibula, reaming was performed to the proximal fibula using the 2.7 reamer. Again position within the canal was visualized radiographically to insure that the cortex was not violated. Following this again the canal was prepared using standard protocol with care taken to insure no violation of the fibular cortex. Following this all drills and guidewires were removed and the 110mm 2.6 accumed fibular nail was inserted within the fibula. Position of the nail was confirmed fluoroscopically with reduction of the fracture site maintained. Temporary k-wire was placed through outrigger to secure the position. Two 3.5 screws were then placed within the distal aspect of the fibular nail through stab incisions to secure nail distally. Good reduction of the fracture was noted both clinically as well as radiographically with good reduction of fracture. Fibula was noted to be out to length. Following this, we elected to proceed with syndesmotic screw placement. This level was in line with the previous incision for reduction. Two 3.5 cortical screws were then placed through the nail and across the syndesmosi (more content not included)... [facility] XR ANKLE 2V AP/LAT LTon 04-0 XR ANKLE 2V AP/LAT LT * * *Final Report* * * DATE OF EXAM: Aug 21 2024 2:49PM [facility] [id number] - XR ANKLE 2V AP/LAT LT / PROCEDURE REASON: ORIF ANKLE TRIMALLEOLAR, WITH FIXATION POSTERIOR LIP, left - Left * * * * Physician Interpretation * * * * EXAM TITLE: INTRAOPERATIVE SPOT VIEWS OF THE LEFT ANKLE DATE: August 21, 2024 at 10:13 AM COMPARISON: August 12, 2004. CLINICAL INDICATION/HISTORY: The patient is a 73-year-old male with spiral fracture of the distal left fibula and posterior distal tibia undergoing open reduction and internal fixation TECHNIQUE: 5 minutes and 3 seconds of fluoroscopy time was available in the OR. 5 spot films were obtained. Fluoroscopy Radiation dose: Integrated dose-area product (DAP) for this visit = 7.96 mGy*cm. FINDINGS: An intramedullary chalo passes through the distal fibula. There are 2 fixation screws which pass through the distal aspect of the chalo and 2 additional fixation screws which pass through the chalo into the tibia. The dorsal tibial fracture is stable and unchanged. Ankle mortise is intact. There is lateral soft tissue swelling and some subcutaneous emphysema. IMPRESSION: Intraoperative spot views document open reduction and internal fixation of distal left fibular fracture with near anatomic alignment achieved and postoperative soft tissue changes present. Ledge Man: [facility] Transcribe Date/Time: Aug 25 2024 4:34P Dictated by : STEPHANIE VAUGHN MD This examination was interpreted and the report reviewed and electronically signed by: STEPHANIE VAUGHN MD on Aug 25 2024 4:38PM EST [id number] CN [facility] XR ANKLE 3V AP/LAT/OBL LTon 08-21-2024 XR ANKLE 3V AP/LAT/OBL LT * * *Final Report* * * DATE OF EXAM: Aug 21 2024 12:37PM [id number] [id number] - XR ANKLE 3V AP/LAT/OBL LT / PROCEDURE REASON: Post-operative / post-procedure assessment, asymptomatic * * * * Physician Interpretation * * * * EXAM TITLE: XR ANKLE 3V AP/LAT/OBL LT DATE: 08/21/2024 at 1205 INDICATION: Status post open reduction internal fixation of left ankle fracture. COMPARISON: 08/12/2024 AP, oblique, and lateral views of left ankle show intramedullary chalo within the distal left fibula with 2 screws extending from lateral to medial across the distal fibula and tibia. Anchoring screws are noted distally in the distal fibula. Bony alignment is anatomic. IMPRESSION: Status post open reduction internal fixation of left ankle fractures. Ledge Man: [facility] Transcribe Date/Time: Aug 21 2024 12:47P Dictated by : SHANNAN PILLAI MD This examination was interpreted and the report reviewed and electronically signed by: SHANNAN PILLAI MD on Aug 21 2024 12:48PM EST [id number] CN [facility] (AGPOB1) NOÉ PINO ([id number]) 1950 [facility] Date Time Provider Department 08/20/24 KALI GIBSON AGPOB1 During your visit today, we recorded the following information about you: Jaclynritika BondsShanti 08/20/2024 7:56 AM Signed Spoke with daughter to confirm surgery for 08/21/24 at 8am arriving at 6am NPO midnight Shanti Jaclyn Bonds Allergies As of Date: 08/20/2024 (No Known Allergies) Date Reviewed: 08/12/2024 Reviewed by: Kali Gibson DPM - Fully Assessed Reason for Visit: Preparations For Surgery [898] Prescriptions as of 08/20/2024 - atorvastatin (LIPITOR) 20 mg tablet Take 20 mg by mouth. - TRIPHROCAPS 1 mg capsule Take 1 capsule by mouth once daily. - calcitriol (ROCALTROL) 0.5 mcg capsule Take 0.5 mcg by mouth. - docusate sodium (COLACE) 100 mg capsule Take 100 mg by mouth. - felodipine ER (PLENDIL) 10 mg 24 hr tablet Take 10 mg by mouth. - fenofibrate (LOFIBRA) 200 mg capsule Take 200 mg by mouth. - ferrous sulfate 325 mg (65 mg iron) tablet Take 325 mg by mouth. - gabapentin (NEURONTIN) 100 mg capsule Take 1 capsule by mouth. - gentamicin 0.1% 0.1 % cream Apply to affected area. - LANTUS SOLOSTAR U-100 INSULIN 100 unit/mL (3 mL) - lactulose 10 gram/15 mL solution Take 20 g by mouth. - metoprolol succinate ER (TOPROL XL) 50 mg 24 hr tablet Take 1 tablet by mouth once daily. - pantoprazole DR (PROTONIX) 20 mg tablet Take 40 mg by mouth. - sevelamer carbonate (RENVELA) 800 mg tablet Take 1,600 mg by mouth. Problem List As Of Date: 08/20/2024 (None) Encounter Status:Closed by JACLYNJANESSA BONDSSHANTI on 08/20/24 [facility] NURSING PROGon 08-20-2024 NURSING PROG HNO ID: [id number] Author: DAVID CASTRO RN Service: ? Author Type: Registered Nurse Type: Nursing Progress Note Filed: 08/20/2024 11:34 Note Text: Summary: device recommendation Type of Device:Dual Chamber Pacemaker AICD?:No Brand: medtronic, Magnet rate: 85 Indication: sick sinus syndrome Pacemaker Dependent: No Underlying Rhythm: sinus at 75 Recommendations: per Gale Villasenor, magnet available if needed. Call back number with questions: [phone] [facility] NURSING PROG HNO ID: [id number] Author: MINESH GARCIA RN Service: Nursing Author Type: Registered Nurse Type: Nursing Progress Note Filed: 08/20/2024 11:17 Note Text: Called and left message at [facility], device clinic [phone], that I need last pacer check information for surgery (0800) tomorrow and can fax Information also. Given office and fax numbers on their vm. [facility] Absolute lymphocyte countOrd ered By: Allen Jackson on 08-14-2024 Lymphocytes Auto (Unsp spec) [#/Vol] 1.39 10*3/uL 0.83-4.51 [facility] Absolute neutrophil countOrd ered By: Allen Jackson on 08-14-2024 Neutrophils (Bld) [#/Vol] 4.6 10*3/uL 2.0-7.7 [facility] Anion gap in Serum or Plasma Ordered By: Allen Jackson on 08-14-2024 Anion gap [Moles/Vol] 16 mmol/L High 5-15 [facility] Automated lymphocyte count a s percentage of total leukocytesOrdered By: Allen Jackson on 08-14-2024 Lymphocytes/100 WBC Auto (Unsp spec) 20.6 % 19-41 [facility] BUN/creatinine ratioOrdered By: Allen Jackson on 08-14-2024 Urea nitrogen/Creatinine [Mass ratio] 4.7 mg/mg Low 10-20 [facility] Basophil percentageOrdered B y: Allen Jackson on 08-14-2024 Basophils/100 WBC (Bld) 1.2 % High 0-1 [facility] Bilirubin, totalOrdered By: Allen Jackson on 08-14-2024 Bilirubin [Mass/Vol] 0.33 mg/dL 0.00-1.30 [facility] CBC W/Diff, Automatedon 07-19 Absolute Lymph 1.39 X10 3/uL Normal 0.83-4.51 [facility] Comment on above: Performed By: #### L 500.4050, L501.9520, L100.0100 #### [facility] [address] [place], [address] Absolute Neut 4.6 X10 3/uL Normal 2.0-7.7 [facility] Comment on above: Performed By: #### L 500.4050, L501.9520, L100.0100 #### [facility] [address] [place], [address] Basophils/100 WBC (Bld) 1.2 % High 0-1 [facility] Comment on above: Performed By: #### L 500.4050, L501.9520, L100.0100 #### [facility] [address] [place], [address] Eosinophils/100 WBC (Bld) 3.3 % Normal 0-5 [facility] Comment on above: Performed By: #### L 500.4050, L501.9520, L100.0100 #### [facility] [address] [place], [address] Erythrocyte distribution width (RBC) [Ratio] 13.2 % Normal 11.6-14.6 [facility] Comment on above: Performed By: #### L 500.4050, L501.9520, L100.0100 #### [facility] [address] [place], [address] Hematocrit (Bld) [Volume fraction] 33.2 % Low 40-54 [facility] Comment on above: Performed By: #### L 500.4050, L501.9520, L100.0100 #### [facility] [address] [place], [address] Hemoglobin (Bld) [Mass/Vol] 10.8 g/dL Low 13.0-16.5 [facility] Comment on above: Performed By: #### L 500.4050, L501.9520, L100.0100 #### [facility] [address] [place], [address] IG% 0.600 Normal 0.0-0.9 [facility] Comment on above: Result Comment: IG% - Immature Granulocytes (promyelocytes, myelocytes and metamyelocytes) > 1% indicates that a LEFT SHIFT is Present. Performed By: #### L 500.4050, L501.9520, L100.0100 #### [facility] [address] [place], [address] Lymphocytes/100 WBC (Bld) 20.6 % Normal 19-41 [facility] Comment on above: Performed By: #### L 500.4050, L501.9520, L100.0100 #### [facility] [address] [place], [address] MCH (RBC) [Entitic mass] 31.1 pg Normal 27.0-32.0 [facility] Comment on above: Performed By: #### L 500.4050, L501.9520, L100.0100 #### [facility] [address] [place], [address] MCHC (RBC) [Mass/Vol] 32.5 g/dL Normal 32-36 [facility] Comment on above: Performed By: #### L 500.4050, L501.9520, L100.0100 #### [facility] [address] [place], [address] MCV (RBC) [Entitic vol] 95.7 fL High 80-94 [facility] Comment on above: Performed By: #### L 500.4050, L501.9520, L100.0100 #### [facility] [address] [place], [address] Monocytes/100 WBC (Bld) 6.8 % Normal 0-10 [facility] Comment on above: Performed By: #### L 500.4050, L501.9520, L100.0100 #### [facility] [address] [place], [address] Neutrophils/100 WBC (Bld) 67.5 % Normal 47-70 [facility] Comment on above: Performed By: #### L 500.4050, L501.9520, L100.0100 #### [facility] [address] [place], [address] Nucleated RBC (Bld) [#/Vol] 0 10*3/uL Normal 0-5 [facility] Comment on above: Performed By: #### L 500.4050, L501.9520, L100.0100 #### [facility] [address] [place], [address] Platelet mean volume (Bld) [Entitic vol] 9.1 fL Normal 6.2-12.0 [facility] Comment on above: Performed By: #### L 500.4050, L501.9520, L100.0100 #### [facility] [address] [place], [address] Platelets (Bld) [#/Vol] 314 10*3/uL Normal 150-450 [facility] Comment on above: Performed By: #### L 500.4050, L501.9520, L100.0100 #### [facility] [address] [place], [address] RBC (Bld) [#/Vol] 3.47 10*6/uL Low 4.6-6.2 [facility] Comment on above: Performed By: #### L 500.4050, L501.9520, L100.0100 #### [facility] [address] [place], [address] RDW SD 46.3 fl High 35.1-43.9 [facility] Comment on above: Performed By: #### L 500.4050, L501.9520, L100.0100 #### [facility] [address] [place], [address] WBC (Bld) [#/Vol] 6.8 10*3/uL Normal 4.4-11.0 [facility] Comment on above: Performed By: #### L 500.4050, L501.9520, L100.0100 #### [facility] [address] [place], [address] Carbon dioxide, total [Moles /volume] in Central venous bloodOrdered By: Allen Jackson on 08-14-2024 CO2 [Moles/Vol] 22.2 mmol/L 21.0-32.0 [facility] Chloride assayOrdered By: Marcel Jackson on 08-14-2024 Chloride [Moles/Vol] 98 mmol/L 98-108 [facility] Comprehensive Metabolic Prof ilon 08-14-2024 BUN/CRE 4.7 RATIO Low 10-20 [facility] Comment on above: Performed By: #### L 500.4050, L501.9520, L100.0100 #### [facility] [address] [place], [address] Creatinine [Mass/Vol] 10.20 mg/dL Invalid Interpretation Code 0.70-1.20 [facility] Comment on above: Result Comment: Crit ical Result(s) Called at 1402: by: JANNY ZALDIVAR TO DR JACKSON. ??Results read back by same. Critical Result(s) Called at 1402: by: JANNY ZALDIVAR TO DR JACKSON. ??Results read back by same. Critical Result(s) Called at: by:??Results read back by same. AMENDED REPORT 08/14/241402 CREAT,SERUM previously reported as: 10.20 *H mg/dL Critical Result(s) Called at 1402: by: JANNY ZALDIVAR TO DR JACKSON. ??Results read back by same. Performed By: #### L 500.4050, L501.9520, L100.0100 #### [facility] [address] [place] [address]. [place], [address] Eosinophil percentageOrdered By: Allen Jackson on 08-14-2024 Eosinophils/100 WBC (Bld) 3.3 % 0-5 [facility] Erythrocyte distribution wid th ratioOrdered By: Allen Jackson 08-14-2024 Erythrocyte distribution width (RBC) [Ratio] 13.2 % 11.6-14.6 [facility] Erythrocyte distribution wid th standard deviationOrdered By: Allen Jackson 08-14-2024 Erythrocyte distribution width (RBC) [Entitic vol] 46.3 fL High 35.1-43.9 [facility] Erythrocyte distribution width (RBC) [Ratio] 46.3 fl High 35.1-43.9 [facility] GFR/1.73 sq M.predicted emani g non-blacks MDRD (S/P/Bld) [Vol rate/Area]Ordered By: Allen Jackson on 08-14-2024 Estimated GFR (MDRD) Non-Af Amer 5 Low >60 [facility] Comment on above: mL/min/1.73m2 CKD-EP I Creatinine Equation (2020) Glomerular filtration rate ( GFR) estimation/1.73 sq m using serum, plasma, or whole bOrdered By: Allen Jackson 08-14-2024 GFR/1.73 sq M.predicted among non-blacks MDRD (S/P/Bld) [Vol rate/Area] 5 mL/min/{1.73_m2} Low >60 [facility] Comment on above: mL/min/1.73m2 CKD-EP I Creatinine Equation (2020) Hematocrit Auto (Bld) [Volum e fraction]Ordered By: Allen Jackson on 08-14-2024 Hematocrit (Bld) [Volume fraction] 33.2 % Low 40-54 [facility] Hemoglobin measurementOrdere d By: Allen Jackson on 08-14-2024 Hemoglobin (Bld) [Mass/Vol] 10.8 g/dL Low 13.0-16.5 [facility] Immature granulocytes/100 WB C Auto (Bld)Ordered By: Allen Jackson on 08-14-2024 Immature granulocytes/100 WBC (Bld) 0.600 % 0.0-0.9 [facility] Comment on above: IG% - Immature Granu locytes (promyelocytes, myelocytes and metamyelocytes) > 1% indicates that a LEFT SHIFT is Present. International normalized rat io (INR) calculationOrdered By: Allen Jackson on 08-14-2024 INR Coag (Bld) [Relative time] 1.1 {INR} [facility] - Chemistry and C hemistry - challengeOrdered By: Allen Jackson 08-14-2024 AST [Catalytic activity/Vol] 23 U/L <38 [facility] Lymphocytes Auto (Unsp spec) [#/Vol]Ordered By: Allen Jackson 08-14-2024 Lymphocytes (Bld) [#/Vol] 1.39 10*3/uL 0.83-4.51 [facility] Lymphocytes/100 WBC Auto (Un sp spec)Ordered By: Allen Jackson 08-14-2024 Lymphocytes/100 WBC (Bld) 20.6 % 19-41 [facility] MCV (mean corpuscular volume ) determinationOrdered By: Allen Jackson 08-14-2024 MCV (RBC) [Entitic vol] 95.7 fL High 80-94 [facility] Mean corpuscular hemoglobin (MCH) determinationOrdered By: Allen Jackson 08-14-2024 MCH (RBC) [Entitic mass] 31.1 pg 27.0-32.0 [facility] Mean corpuscular hemoglobin concentration (MCHC) determinationOrdered By: Allen Jackson on 08-14-2024 MCHC (RBC) [Mass/Vol] 32.5 g/dL 32-36 [facility] Mean platelet volume determi nationOrdered By: Allen Jackson on 08-14-2024 Platelet mean volume (Bld) [Entitic vol] 9.1 fL 6.2-12.0 [facility] Monocyte percentageOrdered B y: Allen Jackson on 08-14-2024 Monocytes/100 WBC (Bld) 6.8 % 0-10 [facility] Neutrophil percentageOrdered By: Allen Jackson on 08-14-2024 Neutrophils/100 WBC (Bld) 67.5 % 47-70 [facility] Nucleated red blood cell per centageOrdered By: Allen Jackson on 08-14-2024 Nucleated RBC/100 WBC (Bld) [Ratio] 0 % 0-5 [facility] Platelet countOrdered By: Marcel Jackson on 08-14-2024 Platelets (Bld) [#/Vol] 314 10*3/uL 150-450 [facility] Potassium (Unsp spec) [Mass/ Vol]Ordered By: Allen Jackson on 08-14-2024 Potassium [Moles/Vol] 5.0 mmol/L 3.3-5.1 [facility] Potassium measurement (mass/ volume)Ordered By: Allen Jackson on 08-14-2024 Potassium (Unsp spec) [Mass/Vol] 5.0 mmol/L 3.3-5.1 [facility] Prothrombin Time w/INRon INR Coag (PPP) [Relative time] 1.1 {INR} Normal [facility] Comment on above: Performed By: #### L 500.4050, L501.9520, L100.0100 #### [facility] [address] [place], [address] PT Coag (PPP) [Time] 14.5 s Normal 11.7-14.9 [facility] Comment on above: Performed By: #### L 500.4050, L501.9520, L100.0100 #### [facility] [address] [place], [address] Prothrombin timeOrdered By: Allen Jackson on 08-14-2024 PT Coag (PPP) [Time] 14.5 s 11.7-14.9 [facility] RBC Auto (Bld) [#/Vol]Ordere d By: Allen Jackson on 08-14-2024 RBC (Bld) [#/Vol] 3.47 10*6/uL Low 4.6-6.2 [facility] Serum creatinine measurement (mass/volume)Ordered By: Allen Jackson on 08-14-2024 Creatinine [Mass/Vol] 10.20 mg/dL High 0.70-1.20 [facility] Comment on above: Critical Result(s) C alled at 1402: by: JANNY ZALDIVAR TO DR JACKSON. Results read back by same. Critical Result(s) Called at 1402: by: JANNY ZALDIVAR TO DR JACKSON. Results read back by same.Critical Result(s) Called at: by: Results read back by same.Previous reported result: 10.20 mg/dLEdited by: AUTOINBelinda on 08/14/24:1403 AMENDED REPORT 08/14/24 1403 CREAT,SERUM previously reported as: 10.20 *H mg/dL Critical Result(s) Called at 1402: by: JANNY ZALDIVAR TO DR JACKSON. Results read back by same. Serum globulin measurementOr dered By: Allen Jackson on 08-14-2024 Globulin (S) [Mass/Vol] 3.2 g/dL 2.2-4.2 [facility] Serum glucose measurement (m ass/volume)Ordered By: Allen Jackson on 08-14-2024 Glucose [Mass/Vol] 121 mg/dL High 70-99 [facility] Serum or plasma alanine south otransferase (ALT) measurementOrdered By: Allen Jackson on 08-14-2024 ALT [Catalytic activity/Vol] 19 U/L <47 [facility] Serum or plasma albumin ian urement (mass/volume)Ordered By: Allen Jackson on 08-14-2024 Albumin [Mass/Vol] 4.1 g/dL 3.4-4.8 [facility] Serum or plasma albumin/glob ulin mass ratioOrdered By: Allen Jackson 08-14-2024 Albumin/Globulin [Mass ratio] 1.3 {ratio} 0.9-2.4 [facility] Serum or plasma alkaline dre sphatase measurementOrdered By: Allen Jackson 08-14-2024 ALP [Catalytic activity/Vol] 43 U/L 40-129 [facility] Serum or plasma calcium ian urement (mass/volume)Ordered By: Allen Jaimes08-14-2024 Calcium [Mass/Vol] 9.9 mg/dL 7.6-11.0 [facility] Serum or plasma urea nitroge n measurement (mass/volume)Ordered By: Allen Jaimes08-14-2024 Urea nitrogen [Mass/Vol] 48 mg/dL High 4-19 [facility] Sodium levelOrdered By: Allen Jaimes08-14-2024 Sodium [Moles/Vol] 137 mmol/L 133-145 [facility] Total proteinOrdered By: Allen Jaimes08-14-2024 Protein [Mass/Vol] 7.3 g/dL 5.9-8.4 [facility] White blood cell (WBC) count Ordered By: Aleln Jackson 08-14-2024 WBC (Bld) [#/Vol] 6.8 10*3/uL 4.4-11.0 [facility] CNCOon 08-13-2024 CNCO Letter Text Normal [facility] CNOVon 08-12-2024 CNOV Office Visit (AGPOB1) NOÉ PINO ([id number]) 1950 [address] [facility] [place] Date Time Provider Department 08/12/24 9:30 AM KALI GIBSON During your visit today, we recorded the following information about you: Respiration Weight Height 20/minute 67.1 kg 1.727 m Casi ZarateGOYO 08/12/2024 11:11 PM Signed REVIEW OF SYSTEMS: GENERAL: Well developed, well nourished. No acute distress PAIN: Negative for pain, history of chronic pain or current treatment for chronic pain conditions CARDIOVASCULAR: Negative for chest pain, leg swelling and palpations. MSK: Negative for joint swelling SKIN: Negative for lesions, rash, itching, metal sensitivity NEURO: Negative for seizure, trauma, numbness/tingling of extremities. ENDOCRINE: Positive for diabetic associated symptoms HEMATOLOGY: Negative for excessive bleeding, clots, bleeding disorders. Kali Gibson DPM 08/12/2024 11:11 PM Signed CC: left ankle injury HPI: This 73 year old male with PMH indicated below presents today for left ankle injury. Patient presents with family member today. Patient declined translation services and translation was provided by family. Patient states that injuried left ankle on 07/24 but did present to urgent care until 07/27. He presented to urgent care where x-rays were taken and patient was told that broke their ankle and was placed in boot. He then presented to PCP who took follow-up radiographs and due to displacement was referred here for surgical evaluation. Patient states has not applied weight to the injured extremity since that time. Pain is mild, rated as 2/10. Patient admits to to numbness and tingling. denies use of analgesics. Denies any current nausea, vomiting, fever, chills, shortness of breath, chest pain or calf pain. Denies any other pedal complaints. Patient has a history of Type 1 diabetes with end-stage renal disease for which he does peritoneal dialysis. He is planning to travel to [facility] in [place] on Saturday for evaluation for potential renal transplant. He will return on 08/19/24. Allen Jackson MD HbA1c on 07/13/24: 6.5 PAST MEDICAL HISTORY Diagnosis Date Diabetes mellitus (HCC) Type 1 Essential hypertension Current Outpatient Medications Medication Sig Dispense Refill atorvastatin (LIPITOR) 20 mg tablet Take 20 mg by mouth. TRIPHROCAPS 1 mg capsule Take 1 capsule by mouth once daily. calcitriol (ROCALTROL) 0.5 mcg capsule Take 0.5 mcg by mouth. docusate sodium (COLACE) 100 mg capsule Take 100 mg by mouth. felodipine ER (PLENDIL) 10 mg 24 hr tablet Take 10 mg by mouth. fenofibrate (LOFIBRA) 200 mg capsule Take 200 mg by mouth. ferrous sulfate 325 mg (65 mg iron) tablet Take 325 mg by mouth. gabapentin (NEURONTIN) 100 mg capsule Take 1 capsule by mouth. gentamicin 0.1% 0.1 % cream Apply to affected area. LANTUS SOLOSTAR U-100 INSULIN 100 unit/mL (3 mL) lactulose 10 gram/15 mL solution Take 20 g by mouth. metoprolol succinate ER (TOPROL XL) 50 mg 24 hr tablet Take 1 tablet by mouth once daily. pantoprazole DR (PROTONIX) 20 mg tablet Take 40 mg by mouth. sevelamer carbonate (RENVELA) 800 mg tablet Take 1,600 mg by mouth. No current facility-administere d medications for this visit. ALLERGIES No Known Allergies PAST SURGICAL HISTORY Procedure Laterality Date ANESTH,PACEMAKER INSERTION Social History Tobacco Use Smoking status: Never Smokeless tobacco: Never Vaping Use Vaping status: Never Used Substance Use Topics Alcohol use: Yes Drug use: Yes History reviewed. No pertinent family history. REVIEW OF SYSTEMS See tech note MSK: + as noted in HPI. Physical examination: On General Observation: Patient is a pleasant, cooperative, well developed 73 year old adult male. The patient is alert and oriented to time, place and person. Patient has normal affect and mood. Resp 20 Ht 172.7 cm (5' 8) Wt 67.1 kg (148 lb) BMI 22.50 kg/m? Patient presents in fracture boot today NWB in wheelchair. Presents with family member. Left LE Vascular: DP and PT pulses are palpable. CFT less than 3 seconds to all digits. Skin temperature is warm to warm from proximal to distal . Hair growth is noted. Positive mild edema noted overlying global left ankle. Neuro: Light touch intact to left. Protective sensation absent at all pedal sites via [place] 5.07 monofilament left. Derm: Skin appears thin. Webspaces 1-4 clean, dry, intact bilateral. No rashes, subcutaneous nodules, or open lesions noted. No hyperkeratotic tissue. + ecchymosis noted to lateral left ankle. No fracture blisters noted. Healing dorsal abrasion over 2nd digit dorsally without erythema or signs of infection.. Musc: Ecchymosis is Absent to the left. Edema is mild over the lateral malleolus. Edema is mild over the medial malleolus. Palpation to the medial ankle is non-painful. No h (more content not included)... Normal [facility] XR Ankle - left Single viewo n 08-12-2024 Radiographs: 1 stress view of the left ankle were taken today. Previous ankle xrays were reviewed from 08/10/24 and 07/28/24. Radiographic impression: Complete extra-articular displaced, oblique card B fracture noted to lateral malleolus. Fibular appears shortened. There is medial clear space widening noted on stress view. There is not a medial malleolar fracture. Small posterior malleolar fracture noted on lateral views from 08/11/24. + vascular calcifications noted. [facility] Radiology Study observation (narrative) [facility] CNOVon 08-11-2024 CNOV Office Visit (FRFHWS) NOÉ PINO ([id number]) 1950 [facility] Date Time Provider Department 08/11/24 9:00 AM KEANU ZARATE V FRWS During your visit today, we recorded the following information about you: Allyn Joshi MA 08/11/2024 9:33 AM Signed Patient presents with: 2 weeks 4 days post fracture Left distal fibula AMB ROOMING INTAKE FLOWSHEET DATA Pain Pain Level: 2 Pain Location: Ankle-Left Description: Stabbing Frequency: Intermittent Intervention/Comfort measure: (none) Daughter in-law Angela with patient today. States he has been continuing to wear fracture boot non-weight bearing with crutches. X-rays done yesterday. Taking no med's for the pain. Keanu Zarate V, DO 08/11/2024 9:33 AM Signed SERVICE DATE: August 11, 2024 PCP: Allen Jackson MD Subjective Patient ID: Noé is a 73 year old male. Chief Complaint: Patient presents with: 2 weeks 4 days post fracture Left distal fibula PAIN EVALUATION 08/11/2024 0900 Pain Level: 2 Pain Location: Ankle-Left Description: Stabbing Frequency: Intermittent Intervention/Comfort measure: -- none HPI Mr. Hughes presents today with his [id number] who is interpreting for him for follow-up of left distal fibula fracture. His trwehpih-nb-ujj states that he has been weightbearing and using his crutches since last visit. He describes the pain as a level 2 with sometimes sharp stabbing pains and predominantly dull ache. He is getting ready to go to [facility] on Saturday to be evaluated for a kidney transplant at [facility]. Review of Systems There is no problem list on file for this patient. PAST MEDICAL HISTORY Diagnosis Date Diabetes mellitus (HCC) Type 1 Essential hypertension PAST SURGICAL HISTORY Procedure Laterality Date ANESTH,PACEMAKER INSERTION No family history on file. Social History Tobacco Use Smoking status: Never Smokeless tobacco: Never Vaping Use Vaping status: Never Used Substance Use Topics Alcohol use: Yes Drug use: Yes ALLERGIES No Known Allergies MEDICATIONS: atorvastatin (LIPITOR) 20 mg tablet Take 20 mg by mouth. TRIPHROCAPS 1 mg capsule Take 1 capsule by mouth once daily. calcitriol (ROCALTROL) 0.5 mcg capsule Take 0.5 mcg by mouth. docusate sodium (COLACE) 100 mg capsule Take 100 mg by mouth. felodipine ER (PLENDIL) 10 mg 24 hr tablet Take 10 mg by mouth. fenofibrate (LOFIBRA) 200 mg capsule Take 200 mg by mouth. ferrous sulfate 325 mg (65 mg iron) tablet Take 325 mg by mouth. gabapentin (NEURONTIN) 100 mg capsule Take 1 capsule by mouth. gentamicin 0.1% 0.1 % cream Apply to affected area. LANTUS SOLOSTAR U-100 INSULIN 100 unit/mL (3 mL) lactulose 10 gram/15 mL solution Take 20 g by mouth. metoprolol succinate ER (TOPROL XL) 50 mg 24 hr tablet Take 1 tablet by mouth once daily. pantoprazole DR (PROTONIX) 20 mg tablet Take 40 mg by mouth. sevelamer carbonate (RENVELA) 800 mg tablet Take 1,600 mg by mouth. Allergies, medications, past surgical history, family history and past medical history were reviewed per this encounter. Objective Ortho Exam 73-year-old male pleasant cooperative exam no acute distress. Evaluation of the left leg shows mild swelling around the ankle with no redness or warmth to touch. There is tenderness with palpation over the distal fibula. Review of x-ray shows spiral fracture of the distal fibula extending to the level of the plafond 3 centimeters superiorl there is lateral displacementy. There is more significant on this view than on his initial view. Assessment/Plan ASSESSMENT Diagnosis (S82.136V) Closed fracture of distal end of left fibula, unspecified fracture morphology, initial encounter (primary encounter diagnosis) Plan: KNEE WALKER Office Visit on 08/11/24 KNEE WALKER PLAN Due to lateral displacement with weightbearing view, I recommend surgical consultation. Patient does have comorbid conditions which would potentially complicate surgery. He also has a timeframe he is working with as he will be gone from Saturday through Saturday to be evaluated for kidney transplant at [facility] in [facility]. He is to continue with nonweightbearing, and I wrote an order for a knee walker. FOLLOW-UP: No follow-ups on file. SIGNATURE: Keanu Zarate DO PATIENT NAME: Noé Hughes DATE: August 11, 2024 TIME: 9:18 AM Allergies As of Date: 08/11/2024 (No Known Allergies) Date Reviewed: 08/11/2024 Reviewed by: Allyn Joshi MA - Fully Assessed Reason for Visit: 2 weeks 4 days post fracture Left distal fibula [Other] Primary Visit Diagnosis:Closed fracture of distal end of left fibula, unspecified fracture morphology, initial encounter [S86.888W] Order(s):KNEE WALKER [[id number]] Order #: [id number] Prescriptions as of 08/11/2024 - atorvastatin (LIPITOR) (more content not included)... Normal [facility] XR ANKLE 3V AP/LAT/OBL LTon 08-10-2024 XR ANKLE 3V AP/LAT/OBL LT * * *Final Report* * * DATE OF EXAM: Aug 10 2024 9:46AM WOX [id number] - XR ANKLE 3V AP/LAT/OBL LT / PROCEDURE REASON: Closed fracture of distal end of left fibula, unspecified fracture morphology, i * * * * Physician Interpretation * * * * EXAM(s): XR ANKLE 3V AP/LAT/OBL LT..... HISTORY: 73 years old Clinical information: Closed fracture of distal end of left fibula, unspecified fracture morphology, initial encounter Pt. states follow up on Lt ankle injury from 2-3 weeks ago. TECHNIQUE: Images: XR ANKLE 3V AP/LAT/OBL LT Comparison: 07/27/2024. RESULT: Findings: Redemonstration of an oblique fracture of the distal left fibula with slight lateral displacement but no angulation of the distal fragment. The lateral view shows a 5 mm avulsion fracture of the posterior malleolus. Medial malleolus appears intact. Joint mortise symmetrical. No intra-articular loose bodies. Bimalleolar soft tissue swelling still present. Vascular calcification noted. Plantar and dorsal calcaneal spurs IMPRESSION: Nondisplaced fractures of the distal fibula and posterior malleolus Ledge Man: [facility] Transcribe Date/Time: Aug 14 2024 3:10P Dictated by : SHRAVAN SHERWOOD MD This examination was interpreted and the report reviewed and electronically signed by: SHRAVAN SHERWOOD MD on Aug 14 2024 3:13PM EST [id number] CN Normal [facility] CNOVon 07-28-2024 CNOV Office Visit (FRWS) NOÉ PINO ([id number]) 1950 [facility] Date Time Provider Department 07/28/24 9:00 AM KEANU ZARATE V FRWS During your visit today, we recorded the following information about you: Allyn Joshi MA 07/28/2024 9:27 AM Signed Patient presents with: Left ankle fracture: Referred by Myesha OVIEDO ROOMING INTAKE FLOWSHEET DATA Pain Pain Level: 7 Pain Location: Ankle-Left Description: Sharp, Stabbing Duration Amount of Time: 4 Duration Units: Days Frequency: Continuous Intervention/Comfort measure: Medication (fracture boot) Daughter in-law Angela with patient today. States patient fell taking out the trash on Saturday. Seen in Urgent care yesterday. Given crutches to ambulate and fracture boot. Has been wearing all the time except to sleep and shower. Taking Tylenol for the pain and helps. Elliot KeanuAnjum DO 07/28/2024 9:27 AM Signed SERVICE DATE: July 28, 2024 PCP: Allen Jackson MD Subjective Patient ID: Noé is a 73 year old male. Chief Complaint: Patient presents with: Left ankle fracture: Referred by Benjamin-Gelacio PAIN EVALUATION 07/28/2024 0905 Pain Level: 7 Pain Location: Ankle-Left Description: Sharp;Stabbing Duration Amount of Time: 4 Duration Units: Days Frequency: Continuous Intervention/Comfort measure: Medication fracture boot HPI Patient presents today for follow-up of left ankle injury. He was taking out the trash 4 days ago when he slipped and fell twisting his left ankle. He had pain and swelling and was unable to weight-bear so he went to the urgent care for evaluation. X-ray shows a spiral fracture of the left fibula. He has been nonweightbearing, using crutches, and in a cam walker boot since that time. His cuvzzulg-qd-opm is present with him and interpreting for him as he does not speak [place]. Review of Systems There is no problem list on file for this patient. PAST MEDICAL HISTORY Diagnosis Date Diabetes mellitus (HCC) Type 1 Essential hypertension PAST SURGICAL HISTORY Procedure Laterality Date ANESTH,PACEMAKER INSERTION No family history on file. Social History Tobacco Use Smoking status: Never Smokeless tobacco: Never Vaping Use Vaping status: Never Used Substance Use Topics Alcohol use: Yes Drug use: Yes ALLERGIES No Known Allergies MEDICATIONS: atorvastatin (LIPITOR) 20 mg tablet Take 20 mg by mouth. TRIPHROCAPS 1 mg capsule Take 1 capsule by mouth once daily. calcitriol (ROCALTROL) 0.5 mcg capsule Take 0.5 mcg by mouth. docusate sodium (COLACE) 100 mg capsule Take 100 mg by mouth. felodipine ER (PLENDIL) 10 mg 24 hr tablet Take 10 mg by mouth. fenofibrate (LOFIBRA) 200 mg capsule Take 200 mg by mouth. ferrous sulfate 325 mg (65 mg iron) tablet Take 325 mg by mouth. gabapentin (NEURONTIN) 100 mg capsule Take 1 capsule by mouth. gentamicin 0.1% 0.1 % cream Apply to affected area. LANTUS SOLOSTAR U-100 INSULIN 100 unit/mL (3 mL) lactulose 10 gram/15 mL solution Take 20 g by mouth. metoprolol succinate ER (TOPROL XL) 50 mg 24 hr tablet Take 1 tablet by mouth once daily. pantoprazole DR (PROTONIX) 20 mg tablet Take 40 mg by mouth. sevelamer carbonate (RENVELA) 800 mg tablet Take 1,600 mg by mouth. Allergies, medications, past surgical history, family history and past medical history were reviewed per this encounter. Objective Ortho Exam 73-year-old male pleasant cooperative with exam no acute distress. evaluation of the left foot and ankle shows minor tenderness with palpation over the distal fibula. No pain over the proximal fibula. Patient is able to move toes with no restrictions. No focal sensory deficits. X-ray shows spiral fracture distal fibula approximately 3 cm above the tibial plafond with minimal lateral displacement of the distal fragment. Assessment/Plan ASSESSMENT Diagnosis (S82.832A) Closed fracture of distal end of left fibula, unspecified fracture morphology, initial encounter Plan: CONSULT PANEL TO ORTHOPAEDICS Office Visit on 07/28/24 CONSULT PANEL TO ORTHOPAEDICS PLAN I reviewed the x-rays and the injury with the patient and his cjmkdnev-rf-gtz. I told him that this is potentially an unstable fracture and needs to be watched closely as it may require surgical consultation. He will remain nonweightbearing and we will repeat x-rays next week with weightbearing views to assess the integrity of the ankle joint. FOLLOW-UP: No follow-ups on file. SIGNATURE: Keanu Zarate DO PATIENT NAME: Noé Hughes DATE: July 28, 2024 TIME: 9:24 AM Referring Provider: MERE BRUNNER [[id number]] Allergies As of Date: 07/28/2024 (No Known Allergies) Date Reviewed: 07/28/2024 Reviewed by: Allyn Joshi MA - Fully Assessed Reason for Visit: Left ankle fracture [Other] Cmt: Referred by Myesha Duffy (more content not included)... Normal [facility] CNOVon 07-27-2024 CNOV Office Visit (UCWSTR) NOÉ PINO ([id number]) 1950 [facility] [place] Date Time Provider Department 07/27/24 10:15 AM MERE BRUNNER UCWSTR During your visit today, we recorded the following information about you: Temperature Pulse Respiration Blood pressure 98.5 degrees 74/minute 16/minute 162/84 Weight 67.5 kg Mere Brunner, GIFT CONSULTANT.HOPPER FEEDER 07/27/2024 11:43 AM Signed [facility] Subjective Noé Hughes is a 73 year old male. Patient presents with: Pain (foot): left foot pain and swelling with bruising x 3 days, twisted and fell Pain (foot) Pertinent negatives include no fever. Noé Hughes is a 73 year old male who presents with left foot and ankle swelling and pain. He states he fell on his butt Saturday. He rates his pain /. He has been applying hot packs to the areas. He presents with his daughter in law who is interpreting for him. Noé does not speak [place] and declines use of secretary of police. Review of Systems Constitutional: Negative for chills and fever. Musculoskeletal: Positive for joint swelling. See HPI Skin: Positive for color change. Objective BP 162/84 Pulse 74 Temp 36.9 ?C (98.5 ?F) Resp 16 Wt 67.5 kg (148 lb 13 oz) SpO2 97% Physical Exam Vitals and nursing note reviewed. Constitutional: Appearance: Normal appearance. Musculoskeletal: General: Swelling, tenderness and signs of injury present. No deformity. Left foot: Decreased range of motion. Normal capillary refill. Swelling and tenderness present. No deformity, bony tenderness or crepitus. Normal pulse. Legs: Skin: General: Skin is warm and dry. Capillary Refill: Capillary refill takes less than 2 seconds. Findings: Bruising and erythema present. No rash. Neurological: Mental Status: He is alert. ASSESSMENT/PLAN: 1. Injury of left ankle, initial encounter - ICD9: 959.7, ICD10: S99.912A (primary diagnosis) - XR ANKLE GENERAL 3V AP/LAT/OBL LEFT 2. Foot injury, left, initial encounter - ICD9: 959.7, ICD10: S99.922A - XR FOOT GENERAL 3V AP/LAT/OBL LEFT IMPRESSION: Acute distal fibular fracture with associated soft tissue swelling as described. Ledge Man: VALERIE Transcribe Date/Time: Jul 27 2024 10:57A Dictated by : BÁRBARA FUENTES MD 3. Closed fracture of distal end of left fibula, unspecified fracture morphology, initial encounter - ICD9: 824.8, ICD10: S82.832A - CONSULT PANEL TO ORTHOPAEDICS - patient placed in walking boot and advised to use crutches and wear boot until seen by orthopedics. - elevate foot, limit walking until seen by orthopedics. - may take tylenol for pain. - may take boot off and apply ice pack to swollen area. - Follow-up with your PCP in 3-5 days if symptoms have not improved or sooner if symptoms worsen - Discussed red flags and need for immediate medical evaluation if any occur. - Discussed supportive care treatment with fluids, rest and analgesia. - Discussed expected course of illness Mere Brunner APRN.HOPPER FEEDER History and Record Review Clinical information obtained from an independent historian. History obtained from or confirmed by: family member. External record(s) reviewed: prior labs/imaging. Findings from review of prior labs/imaging: Previous Renal Function Panel Reviewed No results within last 365 days. Differential Diagnoses - distal fibular fracture is more likely for the following reason(s): suggested by HANDP and consistent with imaging - ankle sprain Management I performed an independent interpretation of the following:imaging Imaging: My interpretation is Acute distal fibular fracture with associated soft tissue swelling Additional Tests or Interventions The following medication(s) were considered but not ordered: ibuprofen Contributing Factors Social Determinants of Health significantly affecting care: poor health literacy and family member interpreting-patient does not speak [place] and declines secretary of police Chronic conditions affecting care: renal failure Chronic conditions addressed by: avoid ibuprofen Disposition The patient was discharged. OTC Medications were advised: tylenol Procedures Mere Brunner APRN.CNP 07/27/2024 11:28 AM Addendum ASSESSMENT/PLAN: 1. Injury of left ankle, initial encounter - ICD9: 959.7, ICD10: S99.912A (primary diagnosis) - XR ANKLE GENERAL 3V AP/LAT/OBL LEFT 2. Foot injury, left, initial encounter - ICD9: 959.7, ICD10: S99.922A - XR FOOT GENERAL 3V AP/LAT/OBL LEFT IMPRESSION: Acute distal fibular fracture with associated soft tissue swelling as described. Ledge Man: VALERIE Transcribe Date/Time: Jul 27 2024 10:57A Dictated by : BÁRBARA FUENTES MD 3. Closed fracture of distal end of left fibula, unspecified fracture morphology, initial encounter - ICD9: 824.8, ICD10: S82.832A - CONSULT PANEL TO (more content not included)... Normal [facility] No Panel Informationon 07-27 IMPRESSION: Acute distal fibular fracture with associated soft tissue swelling as described. Ledge Man: [facility] Transcribe Date/Time: Jul 27 2024 10:57A Dictated by : BÁRBARA FUENTES MD This examination was interpreted and the report reviewed and electronically signed by: BÁRBARA FUENTES MD on Jul 27 2024 10:59AM [facility] DIVISION OF RADIOLOGY Radiology Study observation (narrative) [facility] No Panel InformationOrdered By: [facility] Provider on 07-27-2024 [facility] XR ANKLE 3V AP/LAT/OBL LTon 07-27-2024 XR ANKLE 3V AP/LAT/OBL LT * * *Final Report* * * DATE OF EXAM: Jul 27 2024 10:57AM WOX [id number] - XR ANKLE 3V AP/LAT/OBL LT / PROCEDURE REASON: Injury of left ankle, initial encounter * * * * Physician Interpretation * * * * TITLE: XR FOOT 3V AP/LAT/OBL LT, XR ANKLE 3V AP/LAT/OBL LT CLINICAL INDICATION: Pain and bruising after fall TECHNIQUE: 3 view radiographic study of the left ankle and left foot COMPARISON: None FINDINGS: Left ankle: Soft tissue swelling. Acute, spiral fracture of the distal fibula with the fracture lucency extending from the level of the tibial plafond and to approximately 3 cm superiorly. Minimal lateral displacement of the distal fracture fragment. Dorsal and plantar calcaneal enthesophytes. Atherosclerotic calcification of the vasculature. Left foot: No acute fracture or dislocation identified. Atherosclerotic calcification of the vasculature. IMPRESSION: Acute distal fibular fracture with associated soft tissue swelling as described. Ledge Man: PSC[facility] Transcribe Date/Time: Jul 27 2024 10:57A Dictated by : BÁRBARA FUENTES MD This examination was interpreted and the report reviewed and electronically signed by: BÁRBARA FUENTES MD on Jul 27 2024 10:59AM EST [id number] CN Normal [facility] XR Ankle - left AP and Later al and obliqueon 07-27-2024 * * *Final Report* * * DATE OF EXAM: Jul 27 2024 10:57AM WOX [id number] - XR ANKLE 3V AP/LAT/OBL LT / PROCEDURE REASON: Injury of left ankle, initial encounter * * * * Physician Interpretation * * * * TITLE: XR FOOT 3V AP/LAT/OBL LT, XR ANKLE 3V AP/LAT/OBL LT CLINICAL INDICATION: Pain and bruising after fall TECHNIQUE: 3 view radiographic study of the left ankle and left foot COMPARISON: None FINDINGS: Left ankle: Soft tissue swelling. Acute, spiral fracture of the distal fibula with the fracture lucency extending from the level of the tibial plafond and to approximately 3 cm superiorly. Minimal lateral displacement of the distal fracture fragment. Dorsal and plantar calcaneal enthesophytes. Atherosclerotic calcification of the vasculature. Left foot: No acute fracture or dislocation identified. Atherosclerotic calcification of the vasculature. DIVISION OF RADIOLOGY Provider, [facility] [place] - 07/27/2024 * * *Final Report* * * DATE OF EXAM: Jul 27 2024 10:57AM WOX [id number] - XR ANKLE 3V AP/LAT/OBL LT / PROCEDURE REASON: Injury of left ankle, initial encounter * * * * Physician Interpretation * * * * TITLE: XR FOOT 3V AP/LAT/OBL LT, XR ANKLE 3V AP/LAT/OBL LT CLINICAL INDICATION: Pain and bruising after fall TECHNIQUE: 3 view radiographic study of the left ankle and left foot COMPARISON: None FINDINGS: Left ankle: Soft tissue swelling. Acute, spiral fracture of the distal fibula with the fracture lucency extending from the level of the tibial plafond and to approximately 3 cm superiorly. Minimal lateral displacement of the distal fracture fragment. Dorsal and plantar calcaneal enthesophytes. Atherosclerotic calcification of the vasculature. Left foot: No acute fracture or dislocation identified. Atherosclerotic calcification of the vasculature. IMPRESSION IMPRESSION: Acute distal fibular fracture with associated soft tissue swelling as described. Ledge Man: VALERIE Transcribe Date/Time: Jul 27 2024 10:57A Dictated by : BÁRBARA FUENTES MD This examination was interpreted and the report reviewed and electronically signed by: BÁRBARA FUENTES MD on Jul 27 2024 10:59AM EST [facility] XR FOOT 3V AP/LAT/OBL LTon 0 07-27-2024 XR FOOT 3V AP/LAT/OBL LT * * *Final Report* * * DATE OF EXAM: Jul 27 2024 10:57AM WOX 5336 - XR FOOT 3V AP/LAT/OBL LT / PROCEDURE REASON: Foot injury, left, initial encounter * * * * Physician Interpretation * * * * TITLE: XR FOOT 3V AP/LAT/OBL LT, XR ANKLE 3V AP/LAT/OBL LT CLINICAL INDICATION: Pain and bruising after fall TECHNIQUE: 3 view radiographic study of the left ankle and left foot COMPARISON: None FINDINGS: Left ankle: Soft tissue swelling. Acute, spiral fracture of the distal fibula with the fracture lucency extending from the level of the tibial plafond and to approximately 3 cm superiorly. Minimal lateral displacement of the distal fracture fragment. Dorsal and plantar calcaneal enthesophytes. Atherosclerotic calcification of the vasculature. Left foot: No acute fracture or dislocation identified. Atherosclerotic calcification of the vasculature. IMPRESSION: Acute distal fibular fracture with associated soft tissue swelling as described. Ledge Man: ROBERTS CHAPELAshley Transcribe Date/Time: Jul 27 2024 10:57A Dictated by : BÁRBARA FUENTES MD This examination was interpreted and the report reviewed and electronically signed by: BÁRBARA FUENTES MD on Jul 27 2024 10:59AM EST [id number] Normal [facility] XR Foot - left AP and Latera l and obliqueon 07-27-2024 * * *Final Report* * * DATE OF EXAM: Jul 27 2024 10:57AM WOX 5336 - XR FOOT 3V AP/LAT/OBL LT / PROCEDURE REASON: Foot injury, left, initial encounter * * * * Physician Interpretation * * * * TITLE: XR FOOT 3V AP/LAT/OBL LT, XR ANKLE 3V AP/LAT/OBL LT CLINICAL INDICATION: Pain and bruising after fall TECHNIQUE: 3 view radiographic study of the left ankle and left foot COMPARISON: None FINDINGS: Left ankle: Soft tissue swelling. Acute, spiral fracture of the distal fibula with the fracture lucency extending from the level of the tibial plafond and to approximately 3 cm superiorly. Minimal lateral displacement of the distal fracture fragment. Dorsal and plantar calcaneal enthesophytes. Atherosclerotic calcification of the vasculature. Left foot: No acute fracture or dislocation identified. Atherosclerotic calcification of the vasculature. DIVISION OF RADIOLOGY Provider, [facility] [place] - 07/27/2024 * * *Final Report* * * DATE OF EXAM: Jul 27 2024 10:57AM WOX 5336 - XR FOOT 3V AP/LAT/OBL LT / PROCEDURE REASON: Foot injury, left, initial encounter * * * * Physician Interpretation * * * * TITLE: XR FOOT 3V AP/LAT/OBL LT, XR ANKLE 3V AP/LAT/OBL LT CLINICAL INDICATION: Pain and bruising after fall TECHNIQUE: 3 view radiographic study of the left ankle and left foot COMPARISON: None FINDINGS: Left ankle: Soft tissue swelling. Acute, spiral fracture of the distal fibula with the fracture lucency extending from the level of the tibial plafond and to approximately 3 cm superiorly. Minimal lateral displacement of the distal fracture fragment. Dorsal and plantar calcaneal enthesophytes. Atherosclerotic calcification of the vasculature. Left foot: No acute fracture or dislocation identified. Atherosclerotic calcification of the vasculature. IMPRESSION IMPRESSION: Acute distal fibular fracture with associated soft tissue swelling as described. Ledge Man: PSCAshley Transcribe Date/Time: Jul 27 2024 10:57A Dictated by : BÁRBARA FUENTES MD This examination was interpreted and the report reviewed and electronically signed by: BÁRBARA FUENTES MD on Jul 27 2024 10:59AM [facility] [id number] DOrdered By: Aniya Jackson on 06-24-2024 Vitamin D 25-Hydroxy 7.0 ng/mL [facility] Comment on above: Vitamin D 25(OH) Sta tus Range Deficiency <20 ng/mL (50nmol/L) Insufficiency 20 - 30 ng/mL (50 - 75 nmol/L) Sufficiency 30 - 100 ng/mL (75 - 250 nmol/L) Toxicity >100 ng/mL (>250 nmol/L) Absolute lymphocyte countOrd ered By: Allen Jackson on 06-24-2024 Lymphocytes Auto (Unsp spec) [#/Vol] 1.59 10*3/uL 0.83-4.51 [facility] Absolute neutrophil countOrd ered By: Allen Jackson on 06-24-2024 Neutrophils (Bld) [#/Vol] 6.8 10*3/uL 2.0-7.7 [facility] Albumin to globulin ratioOrd ered By: [facility] 06-24-2024 Albumin/Globulin [Mass ratio] 0.9 {ratio} 0.9-2.4 [facility] Automated lymphocyte count a s percentage of total leukocytesOrdered By: Allen Jackson on 06-24-2024 Lymphocytes/100 WBC Auto (Unsp spec) 17.1 % Low 19-41 [facility] Basophil percentageOrdered B y: Allen Manuel on 06-24-2024 Basophils/100 WBC (Bld) 0.8 % 0-1 [facility] Bilirubin, totalOrdered By: Allen Manuel on 06-24-2024 Bilirubin [Mass/Vol] 0.40 mg/dL 0.20-1.00 [facility] Comment on above: For patients on eltr ombopag therapy, use of Dimension [place] TBIL is not recommended. Blood urea nitrogen (BUN)/cr eatinine ratioOrdered By: Allen Manuel on 06-24-2024 Urea nitrogen/Creatinine [Mass ratio] 5.8 mg/mg Low 10-20 [facility] CBC W/Diff, Automatedon Absolute Lymph 1.59 X10 3/uL Normal 0.83-4.51 [facility] Comment on above: Performed By: #### L 500.4050, L501.9535, L100.0100 #### [facility] [address] [place], [place], [id number] Absolute Neut 6.8 X10 3/uL Normal 2.0-7.7 [facility] Comment on above: Performed By: #### L 500.4050, L501.9520, L100.0100 #### [facility] [address] [place], [address] Basophils/100 WBC (Bld) 0.8 % Normal 0-1 [facility] Comment on above: Performed By: #### L 500.4050, L501.9520, L100.0100 #### [facility] [address] [place], [address] Eosinophils/100 WBC (Bld) 2.2 % Normal 0-5 [facility] Comment on above: Performed By: #### L 500.4050, L501.9520, L100.0100 #### [facility] [address] [place], [id number] Erythrocyte distribution width (RBC) [Ratio] 12.0 % Normal 11.6-14.6 [facility] Comment on above: Performed By: #### L 500.4050, L501.9520, L100.0100 #### [facility] [address] [place], [address] Hematocrit (Bld) [Volume fraction] 33.1 % Low 40-54 [facility] Comment on above: Performed By: #### L 500.4050, L501.9520, L100.0100 #### [facility] [address] [place], [address] Hemoglobin (Bld) [Mass/Vol] 10.7 g/dL Low 13.0-16.5 [facility] Comment on above: Performed By: #### L 500.4050, L501.9520, L100.0100 #### [facility] [address] [place], [address] IG% 1.300 High 0.0-0.9 [facility] Comment on above: Result Comment: IG% - Immature Granulocytes (promyelocytes, myelocytes and metamyelocytes) > 1% indicates that a LEFT SHIFT is Present. Performed By: #### L 500.4050, L501.9520, L100.0100 #### [facility] [address] [place], [address] Lymphocytes/100 WBC (Bld) 17.1 % Low 19-41 [facility] Comment on above: Performed By: #### L 500.4050, L501.9520, L100.0100 #### [facility] [address] [place], [id number] MCH (RBC) [Entitic mass] 30.4 pg Normal 27.0-32.0 [facility] Comment on above: Performed By: #### L 500.4050, L501.9520, L100.0100 #### [facility] [address] [place], [address] MCHC (RBC) [Mass/Vol] 32.3 g/dL Normal 32-36 [facility] Comment on above: Performed By: #### L 500.4050, L501.9520, L100.0100 #### [facility] [address] [place], [address] MCV (RBC) [Entitic vol] 94.0 fL Normal 80-94 [facility] Comment on above: Performed By: #### L 500.4050, L501.9520, L100.0100 #### [facility] [address] [place], [address] Monocytes/100 WBC (Bld) 6.0 % Normal 0-10 [facility] Comment on above: Performed By: #### L 500.4050, L501.9520, L100.0100 #### [facility] [address] [place], [address] Neutrophils/100 WBC (Bld) 72.6 % High 47-70 [facility] Comment on above: Performed By: #### L 500.4050, L501.9520, L100.0100 #### [facility] [address] [place], [address] Nucleated RBC (Bld) [#/Vol] 0 10*3/uL Normal 0-5 [facility] Comment on above: Performed By: #### L 500.4050, L501.9520, L100.0100 #### [facility] [address] [place], [address] Platelet mean volume (Bld) [Entitic vol] 9.7 fL Normal 6.2-12.0 [facility] Comment on above: Performed By: #### L 500.4050, L501.9520, L100.0100 #### [facility] [address] [place], [address] Platelets (Bld) [#/Vol] 259 10*3/uL Normal 150-450 [facility] Comment on above: Performed By: #### L 500.4050, L501.9520, L100.0100 #### [facility] [address] [place], [address] RBC (Bld) [#/Vol] 3.52 10*6/uL Low 4.6-6.2 [facility] Comment on above: Performed By: #### L 500.4050, L501.9520, L100.0100 #### [facility] [address] [place], [address] RDW SD 41.1 fl Normal 35.1-43.9 [facility] Comment on above: Performed By: #### L 500.4050, L501.9520, L100.0100 #### [facility] [address] [place], [address] WBC (Bld) [#/Vol] 9.3 10*3/uL Normal 4.4-11.0 [facility] Comment on above: Performed By: #### L 500.4050, L501.9520, L100.0100 #### [facility] [address] [place], [address] Carbon dioxide measurementOr dered By: Allen Jackson on 06-24-2024 CO2 [Moles/Vol] 24.0 mmol/L 21.0-32.0 [facility] Chloride measurementOrdered By: Allen Jackson on 06-24-2024 Chloride [Moles/Vol] 101 mmol/L 98-107 [facility] Comprehensive Metabolic Prof ilon 06-24-2024 Albumin [Mass/Vol] 3.6 g/dL Normal 3.2-5.0 [facility] Comment on above: Performed By: #### L 500.4050, L501.9520, L100.0100 #### [facility] [address] [place], [address] Albumin/Globulin [Mass ratio] 0.9 {ratio} Normal 0.9-2.4 [facility] Comment on above: Performed By: #### L 500.4050, L501.9520, L100.0100 #### [facility] [address] [place], [address] ALK P 53 U/L Normal 45-117 [facility] Comment on above: Performed By: #### L 500.4050, L501.9520, L100.0100 #### [facility] [address] [place], [address] ALT [Catalytic activity/Vol] 31 U/L Normal 16-61 [facility] Comment on above: Performed By: #### L 500.4050, L501.9520, L100.0100 #### [facility] [address] [place], [address] AST [Catalytic activity/Vol] 18 U/L Normal 15-37 [facility] Comment on above: Performed By: #### L 500.4050, L501.9520, L100.0100 #### [facility] [address] [place], [address] Bilirubin [Mass/Vol] 0.40 mg/dL Normal 0.20-1.00 [facility] Comment on above: Result Comment: For patients on eltrombopag therapy, use of Dimension [place] TBIL is not recommended. Performed By: #### L 500.4050, L501.9520, L100.0100 #### [facility] [address] [place], [address] BUN/CRE 5.8 RATIO Low 10-20 [facility] Comment on above: Performed By: #### L 500.4050, L501.9520, L100.0100 #### [facility] [address] [place], [address] CA,Total 9.3 mg/dL Normal 8.5-10.1 [facility] Comment on above: Performed By: #### L 500.4050, L501.9520, L100.0100 #### [facility] [address] [place], [address] Chloride [Moles/Vol] 101 mmol/L Normal 98-107 [facility] Comment on above: Performed By: #### L 500.4050, L501.9520, L100.0100 #### [facility] [address] [place], [address] CO2 [Moles/Vol] 24.0 mmol/L Normal 21.0-32.0 [facility] Comment on above: Performed By: #### L 500.4050, L501.9520, L100.0100 #### [facility] [address] [place], [address] Creatinine [Mass/Vol] 11.70 mg/dL Invalid Interpretation Code 0.70-1.30 [facility] Comment on above: Result Comment: Crit ical Result(s) Called at: 16:08:33 06/24/2024 by: ARTUR FLORES TO PAULA HOLBROOK. Results read back by same. The validity of the calculated GFR GFRAA in patients over 70 years has not been determined. Clinical correlation is essential. Performed By: #### L 500.4050, L501.9520, L100.0100 #### [facility] [address] [place], [address] EST GFR - AA 6 mL/min Low >60 [facility] Comment on above: Result Comment: Afri can Bangladeshi GFR Calc Performed By: #### L 500.4050, L501.9520, L100.0100 #### [facility] [address] [place], [address] GAP 10 Normal 5-15 [facility] Comment on above: Performed By: #### L 500.4050, L501.9520, L100.0100 #### [facility] [address] [place], [address] GFR/1.73 sq M.predicted among non-blacks MDRD (S/P/Bld) [Vol rate/Area] 5 mL/min/{1.73_m2} Low >60 [facility] Comment on above: Result Comment: Non- GFR Calc Performed By: #### L 500.4050, L501.9520, L100.0100 #### [facility] [address] [place], [address] Globulin (S) [Mass/Vol] 3.9 g/dL Normal 2.2-4.2 [facility] Comment on above: Performed By: #### L 500.4050, L501.9520, L100.0100 #### [facility] [address] [place], [address] Glucose [Mass/Vol] 178 mg/dL High 74-106 [facility] Comment on above: Result Comment: Fast ing Glucose result greater than or equal to 126 mg/dL suggests DIABETES MELLITUS per A.D.A. criteria. Performed By: #### L 500.4050, L501.9520, L100.0100 #### [facility] [address] [place], [address] Potassium [Moles/Vol] 5.0 mmol/L Normal 3.5-5.1 [facility] Comment on above: Performed By: #### L 500.4050, L501.9520, L100.0100 #### [facility] [address] [place], [address] Sodium [Moles/Vol] 134 mmol/L Low 136-145 [facility] Comment on above: Performed By: #### L 500.4050, L501.9520, L100.0100 #### [facility] [address] [place], [address] T PROT 7.5 g/dL Normal 6.4-8.2 [facility] Comment on above: Performed By: #### L 500.4050, L501.9520, L100.0100 #### [facility] [address] [place], [address] Urea nitrogen [Mass/Vol] 68 mg/dL High 7-18 [facility] Comment on above: Performed By: #### L 500.4050, L501.9520, L100.0100 #### [facility] [address] [place], [address] Eosinophil percentageOrdered By: Allen Jackson on 06-24-2024 Eosinophils/100 WBC (Bld) 2.2 % 0-5 [facility] Erythrocyte distribution wid th ratioOrdered By: Allen Jackson on 06-24-2024 Erythrocyte distribution width (RBC) [Ratio] 12.0 % 11.6-14.6 [facility] Erythrocyte distribution wid th standard deviationOrdered By: Allen Jackson on 06-24-2024 Erythrocyte distribution width (RBC) [Entitic vol] 41.1 fL 35.1-43.9 [facility] Erythrocyte distribution width (RBC) [Ratio] 41.1 fl 35.1-43.9 [facility] Estimated glomerular filtrat ion rate (GFR) AmericanOrdered By: Allen Jackson on 06-24-2024 Estimated GFR (MDRD) Amer 6 mL/min Low >60 [facility] Comment on above: GFR Calc Glomerular filtration rate ( GFR) estimationOrdered By: Allen Jackson on 06-24-2024 Estimated GFR (MDRD) Non-Af Amer 5 mL/min Low >60 [facility] Comment on above: Non- GFR Calc GFR/1.73 sq M.predicted among non-blacks MDRD (S/P/Bld) [Vol rate/Area] 5 mL/min/{1.73_m2} Low >60 [facility] Comment on above: Non- GFR Calc Glucose measurementOrdered B y: Allen Jackson on 06-24-2024 Glucose [Mass/Vol] 178 mg/dL High 74-106 [facility] Comment on above: Fasting Glucose resu lt greater than or equal to 126 mg/dL suggests DIABETES MELLITUS per A.D.A. criteria. Hematocrit Auto (Bld) [Volum e fraction]Ordered By: Allen Jackson on 06-24-2024 Hematocrit (Bld) [Volume fraction] 33.1 % Low 40-54 [facility] Hemoglobin measurementOrdere d By: Allen Jackson 06-24-2024 Hemoglobin (Bld) [Mass/Vol] 10.7 g/dL Low 13.0-16.5 [facility] Immature granulocytes/100 WB C Auto (Bld)Ordered By: Allen Jackson 06-24-2024 Immature granulocytes/100 WBC (Bld) 1.300 % High 0.0-0.9 [facility] Comment on above: IG% - Immature Granu locytes (promyelocytes, myelocytes and metamyelocytes) > 1% indicates that a LEFT SHIFT is Present. Laboratory - Chemistry and C hemistry - challengeOrdered By: Allen Jackson 06-24-2024 AST [Catalytic activity/Vol] 18 U/L 15-37 [facility] Lymphocytes Auto (Unsp spec) [#/Vol]Ordered By: Allen Jackson on 06-24-2024 Lymphocytes (Bld) [#/Vol] 1.59 10*3/uL 0.83-4.51 [facility] Lymphocytes/100 WBC Auto (Un sp spec)Ordered By: Allen Jackson on 06-24-2024 Lymphocytes/100 WBC (Bld) 17.1 % Low 19-41 [facility] MCV (mean corpuscular volume ) determinationOrdered By: Allen Jackson on 06-24-2024 MCV (RBC) [Entitic vol] 94.0 fL 80-94 [facility] Mean corpuscular hemoglobin (MCH) determinationOrdered By: Allen Jackson on 06-24-2024 MCH (RBC) [Entitic mass] 30.4 pg 27.0-32.0 [facility] Mean corpuscular hemoglobin concentration (MCHC) determinationOrdered By: Allen Jackson on 06-24-2024 MCHC (RBC) [Mass/Vol] 32.3 g/dL 32-36 [facility] Mean platelet volume determi nationOrdered By: Allen Jackson on 06-24-2024 Platelet mean volume (Bld) [Entitic vol] 9.7 fL 6.2-12.0 [facility] Monocyte percentageOrdered B y: Allen Jackson on 06-24-2024 Monocytes/100 WBC (Bld) 6.0 % 0-10 [facility] Neutrophil percentageOrdered By: Allen Jackson on 06-24-2024 Neutrophils/100 WBC (Bld) 72.6 % High 47-70 [facility] Nucleated red blood cell per centageOrdered By: Allen Jackson on 06-24-2024 Nucleated RBC/100 WBC (Bld) [Ratio] 0 % 0-5 [facility] Platelet countOrdered By: Marcel Jackson on 06-24-2024 Platelets (Bld) [#/Vol] 259 10*3/uL 150-450 [facility] Potassium measurementOrdered By: Allen Jackson on 06-24-2024 Potassium [Moles/Vol] 5.0 mmol/L 3.5-5.1 [facility] RBC Auto (Bld) [#/Vol]Ordere d By: Allen Jackson 06-24-2024 RBC (Bld) [#/Vol] 3.52 10*6/uL Low 4.6-6.2 [facility] Serum anion gap measurementO rdered By: Allen Jackson 06-24-2024 Anion gap [Moles/Vol] 10 mmol/L 5-15 [facility] Serum globulin measurementOr dered By: Allen Jackson 06-24-2024 Globulin (S) [Mass/Vol] 3.9 g/dL 2.2-4.2 [facility] Serum or plasma alanine south otransferase (ALT) measurementOrdered By: Allen Jackson 06-24-2024 ALT [Catalytic activity/Vol] 31 U/L 16-61 [facility] Serum or plasma albumin ian urement (mass/volume)Ordered By: Allen Jackson 06-24-2024 Albumin [Mass/Vol] 3.6 g/dL 3.2-5.0 [facility] Serum or plasma alkaline dre sphatase measurementOrdered By: Allen Jackson 06-24-2024 ALP [Catalytic activity/Vol] 53 U/L 45-117 [facility] Serum or plasma calcium ian urement (mass/volume)Ordered By: Allen Jackson 06-24-2024 Calcium [Mass/Vol] 9.3 mg/dL 8.5-10.1 [facility] Serum or plasma creatinine m easurement (mass/volume)Ordered By: Allen Jackson 06-24-2024 Creatinine [Mass/Vol] 11.70 mg/dL High 0.70-1.30 [facility] Comment on above: Critical Result(s) C alled at: 16:08:33 06/24/2024 by: ARTUR FLORES TO PAULA HOLBROOK. Results read back by same.The validity of the calculated GFR & GFRAA in patients over 70 years has not been determined. Clinical correlation is essential. Serum or plasma thyroid stim ulating hormone (TSH) measurement (units/volume)Ordered By: Allen Jackson 06-24-2024 TSH Qn 1.460 uIU/mL 0.358-3.740 [facility] Serum or plasma urea nitroge n measurement (mass/volume)Ordered By: Allen Jackson on 06-24-2024 Urea nitrogen [Mass/Vol] 68 mg/dL High 7-18 [facility] Sodium levelOrdered By: Allen Jackson on 06-24-2024 Sodium [Moles/Vol] 134 mmol/L Low 136-145 [facility] TSH QnOrdered By: Allen Jackson o n 06-24-2024 Thyroid Stimulating Hormone (TSH) 1.460 uIU/mL 0.358-3.740 [facility] Thyroid Stim Hormone (TSH)on 06-24-2024 TSH 1.460 uIU/mL Normal 0.358-3.740 [facility] Comment on above: Performed By: #### L 500.4050, L501.9520, L100.0100 #### [facility] [address] [place], [address] Total proteinOrdered By: Allen Jackson on 06-24-2024 Protein [Mass/Vol] 7.5 g/dL 6.4-8.2 [facility] White blood cell (WBC) count Ordered By: Allen Jackson on 06-24-2024 WBC (Bld) [#/Vol] 9.3 10*3/uL 4.4-11.0 [facility] 36on 01-21-2024 36 Called and spoke to daughter in law and reviewed instructions. Also told her about device clinic appt. Vesna please call her and schedule 3 month follow-up with [facility] Normal [facility] 36 ----- Message from Giancarlo Charles MD sent at 01/20/2024 12:31 PM EDT ----- I placed a pacemaker on Saturday and briefly went over discharge stuff on Saturday. Can someone call him and do a proper teach and arrange follow up? He is bolivian speaking so we will need to call his daughter in law. Normal [facility] BASIC METABOLIC PANELon Anion gap [Moles/Vol] 15 mmol/L High 3-13 [facility] Comment on above: Performed By: #### L AB15 ####Loan Closer: MINESH THRASHER ([phone])[address] [address] [place] Calcium [Mass/Vol] 10.5 mg/dL High 8.4-10.4 [facility] Comment on above: Performed By: #### L AB15 ####[employer] Closer: MINESH THRASHER ([phone])[facility] [place] [address] Chloride [Moles/Vol] 103 mmol/L Normal 98-107 [facility] Comment on above: Performed By: #### L AB15 ####[employer] Closer: MINESH THRASHER ([phone])[facility] [place] [address] CO2 [Moles/Vol] 17 mmol/L Low 22-30 [facility] Comment on above: Performed By: #### L AB15 ####[employer] Closer: MINESH THRASHER ([phone])[facility] ([facility])[address] [place] [address] Creatinine [Mass/Vol] 10.80 mg/dL High 0.66-1.25 [facility] Comment on above: Performed By: #### L AB15 ####[employer] Cl[employer]: MINESH THRASHER ([phone])[facility] ([facility])[address] [place] [address] GLOMERULAR FILTRATION RATE ML/MIN/1.73 SQ M.PREDICTED 4.6 mL/min/1.73m*2 Low >60.0 [facility] Comment on above: Result Comment: Calc ulation based on the Chronic Kidney Disease Epidemiology Collaboration (CKD-EPI) equation refit without adjustment for race Performed By: #### L [id number] ####Loan Closer: MINESH THRASHER ([phone])[facility] ([facility])[address] [place] [address] [place] Glucose [Mass/Vol] 127 mg/dL High 70-100 [facility] Comment on above: Performed By: #### L [id number] ####Loan Closer: MINESH THRASHER ([phone])[facility] ([facility])[address] [place] [address] [place] Potassium [Moles/Vol] 3.8 mmol/L Normal 3.5-5.1 [facility] Comment on above: Performed By: #### L AB15 ####Loan Closer: MINESH THRASHER ([phone])[facility] ([facility])[address] [place] [address] Sodium [Moles/Vol] 136 mmol/L Normal 135-145 [facility] Comment on above: Performed By: #### L AB15 ####Loan Closer: MINESH THRASHER ([phone])[facility] ([facility])[address] [place] [address] Urea nitrogen [Mass/Vol] 73 mg/dL High 9-20 [facility] Comment on above: Performed By: #### L [id number] ####Loan Closer: MINESH THRASHER ([phone])[facility] ([facility])[address] [place] [address] Basic metabolic 1998 panelon 01-20-2024 Anion gap [Moles/Vol] 15 mmol/L High 3 - 13 mmol/L [facility] Calcium [Mass/Vol] 10.5 mg/dL High 8.4 - 10. 4 mg/dL [facility] Chloride [Moles/Vol] 103 mmol/L 98 - 10 7 mmol/L [facility] CO2 [Moles/Vol] 17 mmol/L Low 22 - 30 mmol/L [facility] Creatinine [Mass/Vol] 10.80 mg/dL High 0.66 - 1.25 mg/dL [facility] GFR/1.73 sq M.predicted (S/P/Bld) [Vol rate/Area] 4.6 mL/min Low - PINF [facility] Comment on above: Calculation based on the Chronic Kidney Disease Epidemiology Collaboration (CKD-EPI) equation refit without adjustment for race Glucose [Mass/Vol] 127 mg/dL High 70 - 100 mg/dL [facility] Interpretation and review of laboratory results Abnormal [facility] Potassium [Moles/Vol] 3.8 mmol/L 3.5 - 5.1 mmol/L [facility] Sodium [Moles/Vol] 136 mmol/L 135 - 145 mmol/L [facility] Urea nitrogen [Mass/Vol] 73 mg/dL High 9 - 20 mg/dL [facility] IDNon 01-20-2024 IDN The patient is Moderately Stable - Low risk of patient condition declining or worsening The patient's goals for the shift include The clinical goals for the shift include Over the shift, the patient did not make progress toward the following goals. Barriers to progression include . Recommendations to address these barriers include . Patient discharged. Normal [facility] Laboratory - Chemistry and C hemistry - challengeon 01-20-2024 Glucose [Mass/Vol] 141 mg/dL High 70 - 100 mg/dL [facility] Glucose [Mass/Vol] 110 mg/dL High 70 - 100 mg/dL [facility] No Panel Informationon 01-19 Interpretation and review of laboratory results Abnormal [facility] Performed by: [facility], [address] [place] [address] CLIA ID: [id number] [facility] Interpretation and review of laboratory results Abnormal [facility] Performed by: [facility], [address] [place] [id number] CLIA ID: [id number] [facility] Nursing Noteon 01-20-2024 Nursing Note Reviewed discharge instructions with Daughter in Law and Son, answered questions. Patient alert and oriented. Normal [facility] Nursing Note Unable to obtain values off dialysis cycler this am. Cycler was turned off and pt was taken off by . Effluent clear yellow. Pt off unit at this time for imaging. Normal [facility] Progress Noteon 01-20-2024 Progress Note Patient unavailable at time of rounds due to patient care. Reviewed chart. Unknown UF as patient taken off treatment by this AM. SBP remain around 140s. Serum calcium elevated but improving. Will continue PD as prescribed. Dr. Jany Awan to resume renal care on 01/20. Signed: Arun Valencia MD Nephrology [facility] ([facility]) Pager: [phone] Office Office [facility] XR CHEST 2 VIEWSon 4 XR CHEST 2 VIEWS Patient Name: NOÉ HUGHES : 1950 [id number] Exam Date/Time: 01/20/2024 07:44 Procedure: XR CHEST 2 VIEWS Ordering Provider: CHARLES MEET Reason For Exam: Pacemaker, status change PA AND LATERAL CHEST CLINICAL INDICATION: Pacemaker placement TECHNIQUE: PA and Lateral chest COMPARISON: none IMPRESSION: FINDINGS AND IMPRESSION: SUPPORT DEVICES: Left subclavian dual-lead pacemaker with its leads overlying the expected locations of the right atrium and right ventricle OSSEOUS STRUCTURES: Unremarkable. HEART AND MEDIASTINUM: The cardiomediastinal silhouette is normal in size and configuration. Calcification of the thoracic aorta. LUNGS AND PLEURA: No consolidation or pulmonary edema. No pneumothorax. No sizable pleural effusion. Report Dictated on Electronically Signed By: Anand Menon MD Electronically Signed Date/Time: 01/20/2024 2:39 PM EDT [facility] XR Chest 2 Viewson FINDINGS AND IMPRESSION: SUPPORT DEVICES: Left subclavian dual-lead pacemaker with its leads overlying the expected locations of the right atrium and right ventricle OSSEOUS STRUCTURES: Unremarkable. HEART AND MEDIASTINUM: The cardiomediastinal silhouette is normal in size and configuration. Calcification of the thoracic aorta. LUNGS AND PLEURA: No consolidation or pulmonary edema. No pneumothorax. No sizable pleural effusion. Report Dictated on Electronically Signed By: Anand Menon MD Electronically Signed Date/Time: 01/20/2024 2:39 PM EDT [facility] Patient Name: NOÉ HUGHES : 1950 Exam Date/Time: 01/20/2024 07:44 Procedure: XR CHEST 2 VIEWS Ordering Provider: CHARLES MEET Reason For Exam: Pacemaker, status change PA AND LATERAL CHEST CLINICAL INDICATION: Pacemaker placement TECHNIQUE: PA and Lateral chest COMPARISON: none [facility] Anand Menon MD - 01/20/2024 Patient Name: NOÉ HUGHES : 1950 Exam Date/Time: 01/20/2024 07:44 Procedure: XR CHEST 2 VIEWS Ordering Provider: CHARLES MEET Reason For Exam: Pacemaker, status change PA AND LATERAL CHEST CLINICAL INDICATION: Pacemaker placement TECHNIQUE: PA and Lateral chest COMPARISON: none IMPRESSION: FINDINGS AND IMPRESSION: SUPPORT DEVICES: Left subclavian dual-lead pacemaker with its leads overlying the expected locations of the right atrium and right ventricle OSSEOUS STRUCTURES: Unremarkable. HEART AND MEDIASTINUM: The cardiomediastinal silhouette is normal in size and configuration. Calcification of the thoracic aorta. LUNGS AND PLEURA: No consolidation or pulmonary edema. No pneumothorax. No sizable pleural effusion. Report Dictated on Electronically Signed By: Anand Menon MD Electronically Signed Date/Time: 01/20/2024 2:39 PM EDT [facility] Radiology Study observation (narrative) [facility] XR Chest 2 ViewsOrdered By: Anand Menon on 01-20-[address] [facility] [employer] Work Phone: 25-hydroxyvitamin D3 [Mass/V ol]on 01-19-2024 Interpretation and review of laboratory results Abnormal [facility] Therapy is based on measurement of Total 25-OHD with the following classification levels: Less than 20 ng/mL: Indicative of Vit D deficiency 20-30 ng/mL: Suggests Vit D insufficiency Optimal: Greater than or equal to 30 ng/mL Test performed by [employer] Competitive Immunoassay, measuring Total Vitamin D, not individual fractions. [facility] BASIC METABOLIC PANELon Anion gap [Moles/Vol] 13 mmol/L Normal 3-13 [facility] Comment on above: Performed By: #### L [id number], [id number] #### Loan Closer: MINESH THRASHER ([phone]) [facility] [address] [place] [address] Calcium [Mass/Vol] 10.7 mg/dL High 8.4-10.4 [facility] Comment on above: Performed By: #### L [id number], [id number] #### Loan Closer: MINESH THRASHER ([phone]) [facility] [address] [place] [address] Chloride [Moles/Vol] 100 mmol/L Normal 98-107 [facility] Comment on above: Performed By: #### Ranulfo [id number], [id number] #### Loan Closer: MINESH THRASHER ([phone]) [facility] [address] [place] [address] [place] CO2 [Moles/Vol] 21 mmol/L Low 22-30 [facility] Comment on above: Performed By: #### L [id number], [id number] #### Loan Closer: MINESH THRASHER ([phone]) [facility] [address] [place] [address] Creatinine [Mass/Vol] 11.13 mg/dL High 0.66-1.25 [facility] Comment on above: Performed By: #### Ranulfo [id number], [id number] #### Loan Closer: MINESH THRASHER ([phone]) [facility] ([facility]) [address] [place] [address] [place] GLOMERULAR FILTRATION RATE ML/MIN/1.73 SQ M.PREDICTED 4.5 mL/min/1.73m*2 Low >60.0 [facility] Comment on above: Result Comment: Calc ulation based on the Chronic Kidney Disease Epidemiology Collaboration (CKD-EPI) equation refit without adjustment for race Performed By: #### Ranulfo [id number], [id number] #### Loan Closer: MINESH THRASHER ([phone]) [facility] ([facility]) [address] [place] [address] [place] Glucose [Mass/Vol] 133 mg/dL High 70-100 [facility] Comment on above: Performed By: #### L [id number], [id number] #### Loan Closer: MINESH THRASHER ([phone]) [facility] [address] [place] [address] [place] Potassium [Moles/Vol] 4.0 mmol/L Normal 3.5-5.1 [facility] Comment on above: Performed By: #### L [id number], [id number] #### Loan Closer: MINESH THRASHER ([id number]) [facility] [address] [place] [address] [place] Sodium [Moles/Vol] 135 mmol/L Normal 135-145 [facility] Comment on above: Performed By: #### L [id number], [id number] #### Loan Closer: MINESH THRASHER ([phone]) [facility] [address] [place] [address] Urea nitrogen [Mass/Vol] 74 mg/dL High 9-20 [facility] Comment on above: Performed By: #### L AB471, [id number] #### Loan Closer: MINESH THRASHER ([phone]) [facility] [address] [place] [address] Basic metabolic 1998 panelon 01-19-2024 Anion gap [Moles/Vol] 13 mmol/L 3 - 13 mmol/L [facility] Calcium [Mass/Vol] 10.7 mg/dL High 8.4 - 10. 4 mg/dL [facility] Chloride [Moles/Vol] 100 mmol/L 98 - 10 7 mmol/L [facility] CO2 [Moles/Vol] 21 mmol/L Low 22 - 30 mmol/L [facility] Creatinine [Mass/Vol] 11.13 mg/dL High 0.66 - 1.25 mg/dL [facility] GFR/1.73 sq M.predicted (S/P/Bld) [Vol rate/Area] 4.5 mL/min Low - PINF [facility] Comment on above: Calculation based on the Chronic Kidney Disease Epidemiology Collaboration (CKD-EPI) equation refit without adjustment for race Glucose [Mass/Vol] 133 mg/dL High 70 - 100 mg/dL [facility] Interpretation and review of laboratory results Abnormal [facility] Potassium [Moles/Vol] 4.0 mmol/L 3.5 - 5.1 mmol/L [facility] Sodium [Moles/Vol] 135 mmol/L 135 - 145 mmol/L [facility] Urea nitrogen [Mass/Vol] 74 mg/dL High 9 - 20 mg/dL [facility] CBC (HEMOGRAM)on 01-19-2024 Erythrocyte distribution width (RBC) [Ratio] 11.7 % Normal 11.5-15.0 [facility] Comment on above: Performed By: #### L [id number], [id number] #### Loan Closer: MINESH THRASHER ([phone]) [facility] ([facility]) [address] [place] [address] Hematocrit (Bld) [Volume fraction] 34.9 % Low 40.0-52.0 [facility] Comment on above: Performed By: #### L [id number], [id number] #### Loan Closer: MINESH THRASHER ([phone]) [facility]) [address] [place] [address] Hemoglobin (Bld) [Mass/Vol] 11.9 g/dL Low 13.0-18.0 [facility] Comment on above: Performed By: #### L [id number], [id number] #### Loan Closer: MINESH THRASHER ([phone]) [facility]) [address] [place] [address] MCH (RBC) [Entitic mass] 30.4 pg Normal 26.0-34.0 [facility] Comment on above: Performed By: #### Ranulfo AB471, [id number] #### Loan Closer: MINESH THRASHER ([phone]) [facility] ([facility]) [address] [place] [address] MCHC 34.1 % Normal 30.5-36.0 [facility] Comment on above: Performed By: #### L AB471, [id number] #### Loan Closer: MINESH THRASHER ([phone]) [facility]) [address] [place] [address] MCV (RBC) [Entitic vol] 89.3 fL Normal 77.0-99.0 S [facility] Comment on above: Performed By: #### L AB471, [id number] #### Loan Closer: MINESH THRASHER ([phone]) [facility]) [address] [place] [address] Platelet mean volume (Bld) [Entitic vol] 9.7 fL Normal 9.0-12.7 [facility] Comment on above: Performed By: #### L AB471, [id number] #### Loan Closer: MINESH THRASHER ([phone]) [facility] ([facility]) [address] [place] [address] Platelets (Bld) [#/Vol] 216 10*3/uL Normal 140-440 [facility] Comment on above: Performed By: #### L AB471, [id number] #### Loan Closer: MINESH THRASHER ([id number]) [facility] [address] [place] [address] RBC (Bld) [#/Vol] 3.91 10*6/uL Low 4.40-5.90 [facility] Comment on above: Performed By: #### L AB471, [id number] #### Loan Closer: MINESH THRASHER ([phone]) [facility] [address] [place] [address] WBC (Bld) [#/Vol] 5.4 10*3/uL Normal 3.6-10.7 [facility] Comment on above: Performed By: #### Ranulfo AB471, [id number] #### Loan Closer: MINESH THRASHER ([phone]) [facility] [address] [place] [address] CBC panel Auto (Bld)on 01-18 Erythrocyte distribution width (RBC) [Ratio] 11.7 % 11.5 - 15.0 % [facility] Hematocrit (Bld) [Volume fraction] 34.9 % Low 40.0 - 52.0 % [facility] Hemoglobin (Bld) [Mass/Vol] 11.9 g/dL Low 13.0 - 18.0 g/dL [facility] Interpretation and review of laboratory results Abnormal [facility] MCH (RBC) [Entitic mass] 30.4 pg 26.0 - 34.0 pg [facility] MCHC (RBC) [Mass/Vol] 34.1 % 30.5 - 36.0 % [facility] MCV (RBC) [Entitic vol] 89.3 fL 77.0 - 99.0 fL [facility] Platelet mean volume (Bld) [Entitic vol] 9.7 fL 9.0 - 12.7 fL [facility] Platelets (Bld) [#/Vol] 216 10*3/uL 140 - 440 10*3/uL [facility] RBC (Bld) [#/Vol] 3.91 10*6/uL Low 4.40 - 5.9 0 10*6/uL [facility] WBC (Bld) [#/Vol] 5.4 10*3/uL 3.6 - 10.7 10*3/uL [facility] Electrophysiology studyon Successful implantation of a dual chamber permanent pacemaker via the left axillary vein. PLAN: - 2-view CXR in AM. - Device interrogation in AM - The patient will be observed overnight and can likely go home in the morning pending above. CV CPACS HEMO [facility] Laboratory - Chemistry and C hemistry - challengeon 01-19-2024 Glucose [Mass/Vol] 227 mg/dL High 70 - 100 mg/dL [facility] Glucose [Mass/Vol] 136 mg/dL High 70 - 100 mg/dL [facility] Glucose [Mass/Vol] 143 mg/dL High 70 - 100 mg/dL [facility] 25-hydroxyvitamin D3 [Mass/Vol] 18 ng/mL Low 30 - 100 ng/mL [facility] Glucose [Mass/Vol] 120 mg/dL High 70 - 100 mg/dL [facility] No Panel Informationon 01-18 Interpretation and review of laboratory results Abnormal [facility] Performed by: [facility], [address] [place] [address] CLIA ID: [id number] [facility] DANIELLE Jenkins 01/19/2024 8:17 PM Patient Name: Noé Hughes Patient : 1950 Acct: [id number] Date of Admission: 01/17/2024 Room/Bed: [facility] A Code Status: Full Code Allergies: No Known Allergies Diagnosis: Patient Active Problem List Diagnosis Junctional bradycardia Treatment: Peritoneal Dialysis Treatment Start Time: 2009 Priority: Routine Location: Bedside Diabetic: Yes NPO: No Isolation Precautions: Dialysis Consent for Treatment Verified: Yes Report Received from Primary RN at 2000 Primary RN (First Initial, Last Name, Title): Leydi barrera RN Incapacitated Nurse Education Completed: Not Applicable HBsAg ONLY: Date Drawn: January 18, 2024 Results: Negative HBsAb: Date Drawn: January 18, 2024 Results: Immune >10 Safety Verified: Identify (I), Consent (C), Equipment (E), HepB Status (B), Orders Complete (O), Access Verified (A), and Timeliness (T) Time out performed prior to access at 2007 Access to be Utilized Access: Peritoneal Catheter Side: Left Location: Lower Exit Site Assessment Signs and Symptoms of Infection/Inflammati on: Yes, see line below If yes: Green pus Exit site dressing change: Completed Notified provider Labs Recent Labs 01/17/24213401/19/24 0603 WBC 9.6 5.4 HGB 12.0* 11.9* HCT 35.2* 34.9* PLT 241 216 Recent Labs 01/17/24213401/18/24 0008 01/19/24 0603 NA 136 134* 135 K 4.2 4.0 4.0 CL 101 102 100 CO2 21* 19* 21* BUN 70* 71* 74* CREATININE 11.51* 11.20* 11.13* GLUCOSE 87 135* 133* PHOS 7.2* -- -- Pre-treatment Assessment 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 Pain Level: 2 Pain Description: aching Pain Action: Medicated Vital Signs Patient Vitals for the past 24 hrs: BP Temp Temp src Pulse Resp SpO2 01/18/24 2058 (!) 167/77 36.7 C (98 F) Temporal 59 18 100 % 01/18/24 2200 159/84 36.3 C (97.3 F) Temporal 62 20 99 % 01/19/24 0144 145/81 36.1 C (97 F) Temporal 58 18 100 % 01/19/24 0540 131/75 (!) 35.9 C (96.6 F) Temporal 58 16 98 % 01/19/24 1012 (!) 146/81 (!) 35.6 C (96.1 F) Temporal 63 16 96 % 01/19/24 1028 158/78 (!) 35.6 C (96.1 F) Temporal 60 -- 94 % 01/19/24 1030 147/77 (!) 35.7 C (96.2 F) Temporal 60 16 97 % 01/19/24 1031 147/77 (!) 35.7 C (96.2 F) Temporal 60 18 97 % 01/19/24 1045 156/79 -- -- 63 16 98 % 01/19/24 1100 150/75 -- -- 60 -- 95 % 01/19/24 1101 141/76 -- -- 63 -- 99 % 01/19/24 1101 -- -- -- 63 -- 98 % 01/19/24 1124 157/74 -- -- 67 -- 99 % 01/19/24 1131 147/76 -- -- 68 -- 100 % 01/19/24 1203 127/65 -- -- 65 -- 99 % 01/19/24 1309 131/75 36 C (96.8 F) Temporal 62 17 99 % 01/19/24 1626 160/81 -- -- 67 -- -- 01/19/24 1630 160/84 36 C (96.8 F) Temporal 61 16 98 % 01/19/24 1710 149/76 36.6 C (97.9 F) Temporal 60 18 100 % 01/19/24 1808 (!) 163/78 36.4 C (97.6 F) Temporal 62 17 100 % 01/19/24 2010 157/81 36.4 C (97.6 F) Temporal 65 18 100 % Height: 170.2 cm (5' 7) Weight: 72.6 kg (160 lb) Peritoneal Dialysis Exchange Number: 5 Dianeal Solution: Other (Comment) (2.5 in 6000m, 1.5 in 6000ml) Bag Weight (g): 6000 g Peritoneal Input Status: Started Peritoneal Output Status: Completed Effluent Appearance: Clear Peritoneal Dialysis Volume In (ml): 62013 ml Dwell Time: 0111 Effluent Volume Out (mL): 37648 ml Balance This Exchange (mL): 667 ml Treatment End Time: 0440 Comment: Provider Notification @FLOWTIME([phone] )@ Post-treatment Assessment Pain Level: Pain Description: Pain Action: Handoff complete and report given to Primary RN at . Primary RN (First Initial, Last Name, Title): Education Person Educated: Patient Knowledge Base: Substantial Barriers to Learning?: Yes, including Language barrier Preferred method of Learning: Oral Topic(s): Access Care, Signs and Symptoms of Infection, Fluid Management, Albumin, Procedural, Medications, Treatment Options, Potassium, and Diet Teaching Tools: Explanation Response to Education: Verbalized Understanding [facility] Interpretation and review of laboratory results Abnormal [facility] Performed by: [facility], [address] [place] [address], [facility] [address] CLIA ID: [id number] [facility] Interpretation and review of laboratory results Abnormal [facility] Performed by: [facility], [address] [place] [address], [facility] [address] CLIA ID: [id number] [facility] Interpretation and review of laboratory results Abnormal [facility] Performed by: [facility], [address] [place] [address], [facility] [address] CLIA ID: [id number] [facility] Nursing Noteon 01-19-2024 Nursing Note Pt to go down to get pacer this AM. Pt still hooked up to their PD. Oncall physical instructor called to help assist in getting patient unhooked from PD. Per dialysis nurse it is okay to have patient take himself off since he does it at home. With patient assistance this RN and patient unhooked him from PD. Normal [facility] Progress Noteon 01-19-2024 Progress Note .Nutrition rescreen completed. Patient referred to the Dietitian. ESRD.BETSY Silva Normal [facility] US Heart TransthoracicOrdere d By: Jerry Hui on 01-19-2024 Ao Root Index 1.90 cm/m2 [facility] Work Phone: Aortic Root 3.[address] [facility] Work Phone: AR Max Velocity PISA 3.7 m/s [facility] Work Phone: AR PHT 667.2 ms [facility] Work Phone: Ascending Aorta 3.5 cm [facility] Work Phone: Ascending Aorta Index 1.90 cm/m2 [facility] Work Phone: AV Area by Peak Velocity 2.3 cm2 [facility] Work Phone: [phone] AV Area by VTI 2.4 cm2 [facility] Work Phone: AV Mean Gradient 4 [facility] Work Phone: [phone] AV Mean Velocity 0.9 m/s [facility] Work Phone: [phone] AV Peak Gradient 8 mmHg [facility] Work Phone: [phone] AV Peak Velocity 1.4 m/s [facility] Work Phone: [phone] AV Velocity Ratio 0.71 [facility] Work Phone: AV VTI 29.9 cm [facility] Work Phone: GINO/BSA Peak Velocity 1.3 cm2/m2 [facility] Work Phone: [phone] GINO/BSA VTI 1.3 cm2/m2 [facility] Work Phone: [phone] E/E' Lateral 9.[address] [facility] Work Phone: [phone] E/E' Ratio (Averaged) 10.35 [facility] Work Phone: [phone] E/E' Septal 11.[address] [facility] Work Phone: EF BP 54 % Abnormal 55 - 100 % [facility] Work Phone: Est. RA Pressure 8 mmHg [facility] Work Phone: [phone] Fractional Shortening 2D 38 % 28 - 44 % [facility] Work Phone: Global Longitudinal Strain -17.4 % [facility] Work Phone: Interpretation and review of laboratory results Abnormal [facility] Work Phone: IVC Diameter 1.[address] [facility] Work Phone: IVSd 1.1 cm Abnormal 0.6 - 1.[address] [facility] Work Phone: LA Diameter 3.[address] [facility] Work Phone: LA Size Index 1.85 cm/m2 [facility] Work Phone: LA Volume 2C 49 mL 18 - 58 mL [facility] Work Phone: LA Volume 4C 31 mL 18 - [address] [facility] Work Phone: LA Volume A/L 44 mL [facility] Work Phone: [phone] LA Volume BP 40 mL 18 - 58 mL [facility] Work Phone: LA Volume Index 2C 27 mL/m2 16 - 34 mL/m2 [facility] Work Phone: [phone] LA Volume Index 4C 17 mL/m2 16 - 34 mL/m2 [facility] Work Phone: [phone] LA Volume Index A/L 24 mL/m2 16 - 34 mL/m2 [facility] Work Phone: [phone] LA Volume Index BP 22 ml/m2 16 - 34 ml/m2 [facility] Work Phone: LA/AO Root Ratio 0.97 [facility] Work Phone: LV E' Lateral Velocity 10 cm/s [facility] Work Phone: LV E' Septal Velocity 8 cm/s [facility] Work Phone: LV EDV A2C 77 mL [facility] Work Phone: [phone] LV EDV A4C [address] [facility] Work Phone: LV EDV BP 93 mL 67 - [address] [facility] Work Phone: LV EDV Index A2C 42 mL/m2 [facility] Work Phone: LV EDV Index A4C 59 mL/m2 [facility] Work Phone: LV EDV Index BP 51 mL/m2 [facility] Work Phone: LV Ejection Fraction A2C 55 % [facility] Work Phone: [phone] LV Ejection Fraction A4C 53 % [facility] Work Phone: LV ESV A2C 35 mL [facility] Work Phone: LV ESV A4C 50 mL [facility] Work Phone: LV ESV BP 43 mL 22 - 58 mL [facility] Work Phone: LV ESV Index A2C 19 mL/m2 [facility] Work Phone: [phone] LV ESV Index A4C 27 mL/m2 [facility] Work Phone: [phone] LV ESV Index BP 23 mL/m2 [facility] Work Phone: [phone] LV Mass 2D 158.8 g 88 - [address] [facility] Work Phone: [phone] LV Mass 2D Index 86.3 g/m2 49 - 115 g/m2 [facility] Work Phone: [phone] LV RWT Ratio 0.[address] [facility] Work Phone: [phone] LVIDd 4.8 cm 4.2 - 5.[address] [facility] Work Phone: [phone] LVIDd Index 2.61 cm/m2 [facility] [employer] Work Phone: [phone] LVIDs 3.[address] [facility] [employer] Work Phone: [phone] LVIDs Index 1.63 cm/m2 [facility] [employer] Work Phone: [phone] LVOT Area 3.[address] [facility] [employer] Work Phone: LVOT Cardiac Output 4.2 liter/minute [facility] [employer] Work Phone: LVOT Diameter 2.[address] [facility] [employer] Work Phone: LVOT Mean Gradient [address] [facility] [employer] Work Phone: LVOT Peak Gradient [address] [facility] [employer] Work Phone: [phone] LVOT Peak Velocity 1.0 m/s [facility] [employer] Work Phone: [phone] LVOT Stroke Volume Index 40.1 mL/m2 [facility] [employer] Work Phone: [phone] LVOT SV 73.[address] [facility] Work Phone: [phone] LVOT VTI 23.[address] [facility] Work Phone: [phone] LVOT:AV VTI Index 0.79 [facility] Work Phone: [phone] LVPWd 0.8 cm 0.6 - 1.[address] [facility] Work Phone: MV A Velocity 0.79 m/s [facility] Work Phone: [phone] MV E Velocity 0.92 m/s [facility] Work Phone: [phone] MV E Wave Deceleration Time 151.[address] [facility] Work Phone: [phone] MV E/A 1.[address] [facility] Work Phone: [phone] RA Area 4C 37.[address] [facility] Work Phone: [phone] RV Basal Dimension 3.[address] [facility] Work Phone: [phone] RV Free Wall Peak S' 17 cm/s [facility] Work Phone: [phone] RV Longitudinal Dimension 6.[address] [facility] Work Phone: [phone] RV Mid Dimension 2.3 cm [facility] Work Phone: [phone] RVSP [address] [facility] Work Phone: [phone] TAPSE 2.1 cm 1.[address] [facility] Work Phone: [phone] TR Max Velocity 2.61 m/s [facility] Work Phone: [phone] TR Peak Gradient [address] [facility] Work Phone: [phone] [facility] Work Phone: [phone] US Heart Transthoracicon Left Ventricle: Left ventricle size is normal. Mild basal septal thickening. Low normal left ventricular systolic function. EF by 2D Simpsons Biplane is 54%. Global longitudinal strain is -17.4%. Normal wall motion. Right Ventricle: Right ventricle size is normal. Normal systolic function. Aortic Valve: Mild (1+) regurgitation. Mitral Valve: Trace regurgitation. Tricuspid Valve: Mild (1+) regurgitation. RVSP is 35 mmHg. IVC/SVC: IVC diameter is normal and decreases less than 50% during inspiration; therefore the estimated right atrial pressure is intermediate (~8 mmHg). Left Ventricle Left ventricle size is normal. Mild basal septal thickening. Low normal left ventricular systolic function. EF by 2D Simpsons Biplane is 54%. Global longitudinal strain is -17.4%. Normal wall motion. Normal diastolic function. Right Ventricle Right ventricle size is normal. Normal systolic function. Left Atrium Left atrium size is normal. Left atrium size is normal (LA volume index 16-34 mL/m2). Right Atrium Right atrium size is normal. IVC/SVC IVC diameter is normal and decreases less than 50% during inspiration; therefore the estimated right atrial pressure is intermediate (~8 mmHg). Mitral Valve Valve structure is normal. Trace regurgitation. No stenosis noted. Tricuspid Valve Valve structure is normal. Mild (1+) regurgitation. RVSP is 35 mmHg. Aortic Valve Trileaflet. Thickened cusps. Mild (1+) regurgitation. No stenosis. Pulmonic Valve The pulmonic valve visualization is suboptimal but appears to be functioning normally. Mild (1+) regurgitation. Ascending Aorta Normal sized sinuses of Valsalva and ascending aorta. Pericardium No pericardial effusion. Septum No interatrial shunt visualized on color Doppler. Pulmonary Artery Pulmonary artery was not well visualized. Study Details Image quality: adequate. Additional technique includes myocardial strain. Heart rate: 59 bpm. Blood pressure: 155/69 mmHg. The underlying ECG rhythm was sinus rhythm. No contrast was given. CV CPACS VITAMIN D DEFICIENCY SCREENI NG (VIT D 25)on 01-19-2024 VIT D 25-OH, TOTAL 18 ng/mL Low 30-100 [facility] Comment on above: Result Comment: BANDAR Bullock COMMENTS: Therapy is based on measurement of Total 25-OHD with the following classification levels: Less than 20 ng/mL: Indicative of Vit D deficiency 20-30 ng/mL: Suggests Vit D insufficiency Optimal: Greater than or equal to 30 ng/mL Test performed by [employer] Competitive Immunoassay, measuring Total Vitamin D, not individual fractions. Performed By: #### L [id number] #### Loan Closer: BROOKS ROA ([id number]) [facility] ([facility]) [address] [place] [id number] [place] CALCIUM, IONIZEDon 4 CALCIUM IONIZED 5.20 mg/dL Normal 4.30-5.20 [facility] Comment on above: Performed By: #### L [id number], [id number] #### Loan Closer: MINESH THRASHER ([id number]) [facility] ([facility]) [address] [place] [address] [place] PH, IONIZED CALCIUM 7.37 Normal 7.31-7.46 [facility] Comment on above: Performed By: #### L [id number], [id number] #### Loan Closer: MINESH THRASHER ([phone]) [facility]) [address] [place] [address] COMPREHENSIVE METABOLIC PANE Flaco 01-18-2024 Albumin [Mass/Vol] 3.7 g/dL Normal 3.5-5.0 [facility] Comment on above: Performed By: #### L [id number] ####Loan Closer: MINESH THRASHER ([id number])[facility] ([facility])[address] [place] [address] ALP [Catalytic activity/Vol] 48 U/L Normal 38-126 [facility] Comment on above: Performed By: #### L [id number] ####Loan Closer: MINESH THRASHER ([id number])[facility] ([facility])[address] [place] [address] ALT [Catalytic activity/Vol] 34 U/L Normal 0-49 [facility] Comment on above: Performed By: #### L [id number] ####Loan Closer: MINESH THRASHER ([id number])[facility] ([facility])[address] [place] [address] Anion gap [Moles/Vol] 13 mmol/L Normal 3-13 [facility] Comment on above: Performed By: #### L [id number] ####Loan Closer: MINESH THRASHER ([id number])[facility] ([facility])[address] [place] [address] AST [Catalytic activity/Vol] 31 U/L Normal 15-46 [facility] Comment on above: Performed By: #### L [id number] ####Loan Closer: MINESH THRASHER ([id number])[facility])[address] [place] [address] Bilirubin [Mass/Vol] 0.6 mg/dL Normal 0.2-1.3 [facility] Comment on above: Performed By: #### L [id number] ####Loan Closer: MINESH THRASHER ([id number])[facility])[address] [place] [address] Calcium [Mass/Vol] 11.2 mg/dL High 8.4-10.4 [facility] Comment on above: Performed By: #### L [id number] ####Loan Closer: MINESH THRASHER ([id number])[facility] ([facility])[address] [place] [address] Chloride [Moles/Vol] 102 mmol/L Normal 98-107 [facility] Comment on above: Performed By: #### L [id number] ####Loan Closer: MINESH THRASHER ([id number])[facility] ([facility])[address] [place] [address] CO2 [Moles/Vol] 19 mmol/L Low 22-30 [facility] Comment on above: Performed By: #### L [id number] ####Loan Closer: MINESH THRASHER ([id number])[facility] ([facility])[address] [place] [address] Creatinine [Mass/Vol] 11.20 mg/dL High 0.66-1.25 [facility] Comment on above: Performed By: #### L [id number] ####Loan Closer: MINESH THRASHER ([id number])[facility] ([facility])[address] [place] [address] GLOMERULAR FILTRATION RATE ML/MIN/1.73 SQ M.PREDICTED 4.4 mL/min/1.73m*2 Low >60.0 [facility] Comment on above: Result Comment: Calc ulation based on the Chronic Kidney Disease Epidemiology Collaboration (CKD-EPI) equation refit without adjustment for race Performed By: #### L [id number] ####Loan Closer: MINESH THRASHER ([id number])[facility] ([facility])[address] [place] [address] [place] Glucose [Mass/Vol] 135 mg/dL High 70-100 [facility] Comment on above: Performed By: #### L [id number] ####Loan Closer: MINESH THRASHER ([id number])[facility] ([facility])[address] [place] [address] [place] Potassium [Moles/Vol] 4.0 mmol/L Normal 3.5-5.1 [facility] Comment on above: Performed By: #### L [id number] ####Loan Closer: MINESH THRASHER ([id number])[facility] ([facility])[address] [place] [address] Protein [Mass/Vol] 6.6 g/dL Normal 6.3-8.2 [facility] Comment on above: Performed By: #### L [id number] ####Loan Closer: MINESH THRASHER ([id number])[facility] ([facility])[address] [place] [address] Sodium [Moles/Vol] 134 mmol/L Low 135-145 [facility] Comment on above: Performed By: #### L [id number] ####Loan Closer: MINESH THRASHER ([id number])[facility] ([facility])[address] [place] [address] Urea nitrogen [Mass/Vol] 71 mg/dL High 9-20 [facility] Comment on above: Performed By: #### L [id number] ####Loan Closer: MINESH THRASHER ([id number])[facility] ([facility])[address] [place] [address] Calcium.ionized [Moles/Vol]o n 01-18-2024 Calcium.ionized (Bld) [Moles/Vol] 5.20 mg/dL 4.30 - 5.20 mg/dL [facility] Interpretation and review of laboratory results Normal [facility] PH, IONIZED CALCIUM 7.37 7.31 - 7.46 [facility] Comprehensive metabolic 1998 panelon 01-18-2024 Albumin [Mass/Vol] 3.7 g/dL 3.5 - 5.0 g/dL [facility] ALP [Catalytic activity/Vol] 48 U/L 38 - 126 U/L [facility] ALT [Catalytic activity/Vol] 34 U/L 0 - 49 U/L [facility] Anion gap [Moles/Vol] 13 mmol/L 3 - 13 mmol/L [facility] AST [Catalytic activity/Vol] 31 U/L 15 - 46 U/L [facility] Bilirubin [Mass/Vol] 0.6 mg/dL 0.2 - 1 .3 mg/dL [facility] Calcium [Mass/Vol] 11.2 mg/dL High 8.4 - 10. 4 mg/dL [facility] Chloride [Moles/Vol] 102 mmol/L 98 - 10 7 mmol/L [facility] CO2 [Moles/Vol] 19 mmol/L Low 22 - 30 mmol/L [facility] Creatinine [Mass/Vol] 11.20 mg/dL High 0.66 - 1.25 mg/dL [facility] GFR/1.73 sq M.predicted (S/P/Bld) [Vol rate/Area] 4.4 mL/min Low - PINF [facility] Comment on above: Calculation based on the Chronic Kidney Disease Epidemiology Collaboration (CKD-EPI) equation refit without adjustment for race Glucose [Mass/Vol] 135 mg/dL High 70 - 100 mg/dL [facility] Interpretation and review of laboratory results Abnormal [facility] Potassium [Moles/Vol] 4.0 mmol/L 3.5 - 5.1 mmol/L [facility] Protein [Mass/Vol] 6.6 g/dL 6.3 - 8.2 g/dL [facility] Sodium [Moles/Vol] 134 mmol/L Low 135 - 145 mmol/L [facility] Urea nitrogen [Mass/Vol] 71 mg/dL High 9 - 20 mg/dL [facility] Consulton 01-18-2024 Consult NEPHROLOGY CONSULT NOTE PATIENT NAME: Noé Hughes RO[facility]: [facility] A SERVICE DATE: 01/18/2024 SERVICE TIME: 2:28 PM LENGTH OF STAY: 1 day(s) REFERRING PHYSICIAN: Briana Lynn MD PRIMARY CARE PHYSICIAN: PRUDENCIO JACKSON MD OUTPATIENT ADAPTED PHYSICAL EDUCATION AIDE: Rylee Coronel DO Subjective/HPI Noé Hughes is a 73 y.o. [place] Islander-speaking male with PMHx significant for ESRD on PD, HTN, HLD, DM type 2 who initially presented to the ED with near syncope in the setting of bradycardia, and he was admitted for further management. The nephrology service was consulted for the provision of inpatient dialysis. Patient was seen and examined, and his was at the bedside on evaluation. Conversation in [place] was facilitated through the assistance of their [id number] by phone. He follows with nephrology in [place]. He states that he typically uses half 1.5% and half 2.5% dextrose bags with his PD sessions overnight. He denies dyspnea or concerns for worsening peripheral edema at present. Review of Systems: Constitutional: no fatigue, no fever, no chills Eye: no double vision, no visual disturbances Ear/Nose/Mouth/Throa t: no nasal congestion, no sore throat Respiratory: no shortness of breath, no cough, no sputum production Cardiovascular: no chest pain, no palpitations, no peripheral edema Gastrointestinal: no nausea, no vomiting, no diarrhea, no constipation, no abdominal pain Genitourinary: no dysuria, no hematuria, no change in urine stream Musculoskeletal: no joint pain, no muscle pain Integumentary: no rash, no breakdown, no skin lesion Neurologic: no confusion, no numbness, no tingling, +lightheadedness/diz ziness Medical History: No past medical history on file. No past surgical history on file. No family history on file. Social History Socioeconomic History Marital status: Allergies: No Known Allergies Prior to Admission Medications: Medications Prior to Admission Medication Sig Dispense Refill Last Dose atorvastatin (Lipitor) 20 MG tablet Take 20 mg by mouth daily. 01/17/2024 B complex-vitamin C-folic acid (Nephro-Jordon Rx) 1 MG tablet Take 1 tablet by mouth daily (with breakfast). 01/17/2024 calcitriol (Rocaltrol) 0.5 MCG capsule Take 0.5 mcg by mouth daily. Per family, takes 2 tablets at noon 01/17/2024 docusate sodium (Colace) 100 MG capsule Take 100 mg by mouth 2 times daily. 01/17/2024 felodipine ER (Plendil) 10 MG 24 hr tablet Take 10 mg by mouth daily. Do not crush, chew, or split. 01/17/2024 ferrous sulfate (FeroSul) 325 (65 Fe) MG tablet Take 325 mg by mouth in the morning and 325 mg in the evening. 01/17/2024 insulin glargine (Lantus) 100 UNIT/ML injection Inject 30 Units under the skin every morning. 01/17/2024 lactulose (Chronulac) 10 GM/15ML solution Take 20 g by mouth 2 times daily. 01/17/2024 pantoprazole (ProtoNix) 20 MG EC tablet Take 40 mg by mouth every morning (before breakfast). Do not crush, chew, or split. 01/17/2024 sevelamer (Renagel) 800 MG tablet Take 800 mg by mouth in the morning and 800 mg at noon and 800 mg in the evening. Take with meals. Swallow tablet whole; do not crush, break, or chew. Per patient's family: Takes 1 tablet in morning, 2 tablets at noon, 1 tablet in the evening. . 01/17/2024 Objective Physical Exam Patient Vitals for the past 24 hrs: BP Temp Temp src Pulse Resp SpO2 01/18/24 1157 155/69 36.7 ?C (98 ?F) Temporal 56 18 99 % 01/18/24 0617 147/69 36.3 ?C (97.4 ?F) Temporal 54 17 97 % 01/18/24 0137 155/73 (!) 35.7 ?C (96.2 ?F) Temporal 57 18 99 % 01/18/24 0110 (!) 153/65 -- -- 58 13 99 % 01/18/24 0015 (!) 142/68 -- -- 57 15 99 % 01/18/24 0000 (!) 142/68 -- -- 54 13 96 % 01/17/24 2315 -- -- -- 54 19 98 % 01/17/24 2300 (!) 160/63 -- -- 56 16 98 % 01/17/24 2230 (!) 164/65 -- -- 58 20 98 % 01/17/24 2215 (!) 160/85 -- -- 57 18 98 % 01/17/24 2132 (!) 149/62 -- -- 59 17 97 % 01/17/242015 111/71 -- -- 60 16 99 % 01/17/241999 (!) 147/62 -- -- 57 17 96 % I/Os: Intake/Output Summary (Last 24 hours) at 01/18/2024 1428 Last data filed at 01/18/2024 0602 Gross per 24 hour Intake 360 ml Output -- Net 360 ml Weight: Weight on Admission: Wt Readings from Last 5 Encounters: No data found for Wt General: NAD, pleasant, cooperative Head: normocephalic, atraumatic Eyes: EOMI, sclera are anicteric ENT: hearing intact to spoken voice, mucus membranes are moist Cardiovascular: +S1 & S2 sounds, regular rate and rhythm, there is no LE edema Pulmonary: lungs are CTA bilaterally without wheezing, rales, or rhonchi Gastrointestinal: abdomen is soft, non-tender, non-distended, with left-sided PD catheter in place Neurological: awake, alert Skin: warm and dry, without rash to visible skin Recent Labs: Recent Labs 01/17/24 2135 WBC 9.6 HGB 12.0* HCT 35.2* MCV 88.9 PLT 241 No results found for: IRON, TIBC, FERRITIN No results found for: V (more content not included)... Normal [facility] Consult [facility] Heart & Vascular [place] [facility] Cardiology /Electrophysiology Consult Note Reason for Consult/Chief Complaint: Junctional Bradycardia History of Present Illness: Noé Hughes is a 73 y.o. male with PMH of ESRD on PD and hypertension who presents after an episode of dizziness and presyncope. He was at [facility] with his family and all of a sudden didn't feel well. He felt dizzy and light-headed. They went to the pharmacy and checked his BP, which was very low. They quickly went to the [place] ED and he was found to be in a junctional rhythm with HR 30. He was given atropine and his rate improved and symptoms resolved. He was transferred to [facility] for further care. This has never happened in the past. His only significant abnormality was hypercalcemia. Patient is bolivian speaking and translation was provided by his daughter in law. Assessment/Plan Sick Sinus Syndrome - Will require pacemaker implantation. Will plan to do it on 01/19/2024. Please keep NPO after midnight tonight. - Echocardiogram pending Medications: atorvastatin, 20 mg, Oral, Daily B complex-vitamin C-folic acid, 1 capsule, Oral, Daily [Held by provider] calcitriol, 0.5 mcg, Oral, Daily docusate sodium, 100 mg, Oral, BID ferrous sulfate, 325 mg, Oral, BID heparin, 5,000 Units, SubCUTAneous, 2 times per day insulin glargine, 30 Units, SubCUTAneous, q AM insulin lispro, 0-6 Units, SubCUTAneous, TID WC lactulose, 20 g, Oral, BID pantoprazole, 40 mg, Oral, qAM AC [Held by provider] sevelamer carbonate, 800 mg, Oral, TID WC Infusion Medications: Physical Examination: Vitals: 01/18/24 0015 01/18/24 0110 01/18/24 0137 01/18/24 0617 BP: (!) 142/68 (!) 153/65 155/73 147/69 BP Location: Left arm Patient Position: Sitting Pulse: 57 58 57 54 Resp: 15 13 18 17 Temp: (!) 35.7 ?C (96.2 ?F) 36.3 ?C (97.4 ?F) TempSrc: Temporal Temporal SpO2: 99% 99% 99% 97% Intake/Output Summary (Last 24 hours) at 01/18/2024 1023 Last data filed at 01/18/2024 0602 Gross per 24 hour Intake 360 ml Output -- Net 360 ml Wt Readings from Last 3 Encounters: No data found for Wt Physical Exam Constitutional: Appearance: Normal appearance. HENT: Head: Normocephalic and atraumatic. Mouth/Throat: Mouth: Mucous membranes are moist. Eyes: Extraocular Movements: Extraocular movements intact. Cardiovascular: Rate and Rhythm: Normal rate and regular rhythm. Pulses: Normal pulses. Heart sounds: Normal heart sounds. Pulmonary: Effort: Pulmonary effort is normal. Breath sounds: Normal breath sounds. Abdominal: Palpations: Abdomen is soft. Musculoskeletal: General: Normal range of motion. Cervical back: Normal range of motion and neck supple. Skin: General: Skin is warm and dry. Neurological: General: No focal deficit present. Mental Status: He is alert and oriented to person, place, and time. Psychiatric: Mood and Affect: Mood normal. Behavior: Behavior normal. Thought Content: Thought content normal. Judgment: Judgment normal. Laboratory Tests: Recent Labs 01/17/24213401/18/24 0008 NA 136 134* K 4.2 4.0 CL 101 102 CO2 21* 19* BUN 70* 71* CREATININE 11.51* 11.20* EGFR 4.3* 4.4* Recent Labs 01/17/242134 TROPONINI 0.023 Recent Labs 01/17/242134 WBC 9.6 HGB 12.0* HCT 35.2* MCV 88.9 PLT 241 Lab Results Component Value Date HGBA1C 7.1 (H) 01/17/2024 Lab Results Component Value Date TSH 1.356 01/17/2024 No results found for: CHOL No results found for: HDL No results found for: LDLCALC No results found for: TRIG No results found for: CHOLHDL No results found for: LDLCHOLESTER No results for input(s): BNP in the last 72 hours. No results for input(s): INR in the last 72 hours. Results from last 7 days Lab Units 01/18/24 0008 AST U/L 31 ALT U/L 34 No results found for: IRON, TIBC, FERRITIN Radiology: CXR: personally reviewed: Cardiac Tests Personally Reviewed: Last EKG 01/17/24 ECG 12-LEAD 01/17/2024 10:34 PM (Final) Impression Sinus rhythm Borderline left axis deviation Electronically Signed On 01-17-2024 22:34:34 EDT by Rakesh Phillips Signed by: Rakesh Phillips MD on 01/17/2024 10:34 PM Reports reviewed: Last Echo No results found for this or any previous visit. Last Cath No results found for this or any previous visit. Last Stress Test No results found for this or any previous visit. Last EP study No results found for this or any previous visit. No results found for: EFBP, PLVEF, LVEFPHYS, LVEF2D, EF Meet Alfa Charles MD DATE of SERVICE: 01/18/2024 Normal [facility] HBV surface Ab IA Qnon 01-17 Interpretation: <8.0 Non-Reactive 8.0-11.9 Equivocal >= 12.0 Ab Detected Note: If an equivocal result is interpreted, an antibody status is unable to be determined. Collect new specimen if clinically indicated. [facility] HBV surface Ag IA Qlon 01-17 Interpretation and review of laboratory results Normal [facility] HEPATITIS B SURFACE ANTIBODY on 01-18-2024 HEPATITIS B VIRUS SURFACE AB 996.6 mIU/mL Normal [facility] Comment on above: Result Comment: BANDAR Bullock COMMENTS: Interpretation: <8.0 Non-Reactive 8.0-11.9 Equivocal >= 12.0 Ab Detected Note: If an equivocal result is interpreted, an antibody status is unable to be determined. Collect new specimen if clinically indicated. Performed By: #### L [id number], [id number] #### Loan Closer: MINESH THRASHER ([phone]) [facility] ([facility]) [address] [place] [address] HEPATITIS B SURFACE ANTIGENo n 01-18-2024 HEPATITIS B VIRUS SURFACE AG Not detected Normal Not Detected [facility] Comment on above: Performed By: #### L [id number], [id number] #### Loan Closer: MINESH THRASHER ([id number]) [facility] ([facility]) [address] [place] [address] IDNon 01-18-2024 IDN The patient is Moderately Unstable - Medium risk of patient condition declining or worsening The patient's goals for the shift include rest The clinical goals for the shift include remain hemodynamically stable. Problem: Pain - Adult Goal: Verbalizes/displays adequate comfort level or baseline comfort level 01/18/2024511 by Diamond Lovett RN Outcome: Progressing 01/18/2024355 by Diamond Lovett RN Outcome: Progressing Problem: Safety - Adult Goal: Free from fall injury 01/18/2024511 by Diamond Lovett RN Outcome: Progressing 01/18/2024355 by Diamond Lovett RN Outcome: Progressing Problem: Discharge Planning Goal: Discharge to home or other facility with appropriate resources 01/18/2024511 by Diamond Lovett RN Outcome: Progressing 01/18/2024355 by Diamond Lovett RN Outcome: Progressing Problem: Chronic Conditions and Co-morbidities Goal: Patient's chronic conditions and co-morbidity symptoms are monitored and maintained or improved 01/18/2024511 by Diamond Lovett RN Outcome: Progressing 01/18/2024355 by Diamond Lovett RN Outcome: Progressing Normal [facility] IDN The patient is Moderately Unstable - Medium risk of patient condition declining or worsening The patient's goals for the shift include rest. The clinical goals for the shift include remain hemodynamically stable. Problem: Pain - Adult Goal: Verbalizes/displays adequate comfort level or baseline comfort level Outcome: Progressing Problem: Safety - Adult Goal: Free from fall injury Outcome: Progressing Problem: Discharge Planning Goal: Discharge to home or other facility with appropriate resources Outcome: Progressing Problem: Chronic Conditions and Co-morbidities Goal: Patient's chronic conditions and co-morbidity symptoms are monitored and maintained or improved Outcome: Progressing Normal [facility] Laboratory - Chemistry and C hemistry - challengeon 01-18-2024 Glucose [Mass/Vol] 100 mg/dL 70 - 100 mg/dL [facility] Glucose [Mass/Vol] 135 mg/dL High 70 - 100 mg/dL [facility] Glucose [Mass/Vol] 133 mg/dL High 70 - 100 mg/dL [facility] Glucose [Mass/Vol] 111 mg/dL High 70 - 100 mg/dL [facility] TSH Qn 1.356 m[IU]/L [facility] Average glucose Estimated from glycated hemoglobin (Bld) [Mass/Vol] 157 mg/dL [facility] Parathyrin.intact [Mass/Vol] 62.3 pg/mL High 7.5 - 53.5 pg/mL [facility] Laboratory - Hematology and Cell countson 01-18-2024 HbA1c (Bld) [Mass fraction] 7.1 % High NINF - 5.7 % [facility] Comment on above: Normal less than 5.7 % Prediabetes 5.7% to 6.4% Diabetes 6.5% or higher --HgbA1C levels may not be accurate in patients who have renal disease, received recent blood transfusions, are anemic, or who have dyshemoglobinemia. Laboratory - Microbiology an d Antimicrobial susceptibilityon 01-18-2024 HBV surface Ab IA Qn 996.6 m[IU]/mL mIU/mL [facility] HBV surface Ag IA Ql Not detected Not Detected [facility] No Panel Informationon 01-17 [facility] Rakesh Jenkins RN 01/18/2024 9:07 PM Patient Name: Noé Hughes Patient : 1950 Acct: [id number] Date of Admission: 01/17/2024 Room/Bed: [facility] A Code Status: Full Code Allergies: No Known Allergies Diagnosis: Patient Active Problem List Diagnosis Junctional bradycardia Treatment: Peritoneal Dialysis Treatment Start Time: 2057 Priority: Routine Location: Bedside Diabetic: Yes NPO: No Isolation Precautions: Dialysis Consent for Treatment Verified: Yes Report Received from Primary RN at 2049 Primary RN (First Initial, Last Name, Title): Leydi Barrera RN Incapacitated Nurse Education Completed: Not Applicable HBsAg ONLY: Date Drawn: Results: Unknown HBsAb: Date Drawn: Results: Unknown Safety Verified: Identify (I), Consent (C), Equipment (E), HepB Status (B), Orders Complete (O), Access Verified (A), and Timeliness (T) Time out performed prior to access at 2054 Access to be Utilized Access: Peritoneal Catheter Side: Left Location: Lower Exit Site Assessment Signs and Symptoms of Infection/Inflammati on: Pt has small amount of green colored pus at exit site, notified DR Vela If yes: pus Exit site dressing change: Completed Labs Recent Labs 01/17/242134 WBC 9.6 HGB 12.0* HCT 35.2* PLT 241 Recent Labs 01/17/24213401/18/24 0008 NA 136 134* K 4.2 4.0 CL 101 102 CO2 21* 19* BUN 70* 71* CREATININE 11.51* 11.20* GLUCOSE 87 135* PHOS 7.2* -- Pre-treatment Assessment 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 Pain Level: Pain Description: Pain Action: Vital Signs Patient Vitals for the past 24 hrs: BP Temp Temp src Pulse Resp SpO2 Height Weight 01/17/24 2132 (!) 149/62 -- -- 59 17 97 % -- -- 01/17/24 2215 (!) 160/85 -- -- 57 18 98 % -- -- 01/17/24 2230 (!) 164/65 -- -- 58 20 98 % -- -- 01/17/24 2300 (!) 160/63 -- -- 56 16 98 % -- -- 01/17/24 2315 -- -- -- 54 19 98 % -- -- 01/18/24 0000 (!) 142/68 -- -- 54 13 96 % -- -- 01/18/24 0015 (!) 142/68 -- -- 57 15 99 % -- -- 01/18/24 0110 (!) 153/65 -- -- 58 13 99 % -- -- 01/18/24 0137 155/73 (!) 35.7 C (96.2 F) Temporal 57 18 99 % -- -- 01/18/24 0617 147/69 36.3 C (97.4 F) Temporal 54 17 97 % -- -- 01/18/24 1157 155/69 36.7 C (98 F) Temporal 56 18 99 % -- -- 01/18/24 1503 152/71 36.4 C (97.5 F) Temporal 58 16 98 % -- -- 01/18/24 1611 -- -- -- -- -- -- 1.702 m (5' 7) 72.6 kg (160 lb) 01/18/24 1840 151/70 37.1 C (98.7 F) Temporal 57 18 96 % -- -- 01/18/24 2058 (!) 167/77 36.7 C (98 F) Temporal 59 18 100 % -- -- Height: 170.2 cm (5' 7) Weight: 72.6 kg (160 lb) Peritoneal Dialysis Exchange Number: 5 Dianeal Solution: Other (Comment) (2.5% in 6000ml) Bag Weight (g): 6 g Peritoneal Input Status: Started Treatment End Time: 457 Comment: Provider Notification @FLOWTIME([id number] )@ Post-treatment Assessment Pain Level: Pain Description: Pain Action: Handoff complete and report given to Primary RN at . Primary RN (First Initial, Last Name, Title): Education Person Educated: Patient Knowledge Base: Substantial Barriers to Learning?: Yes, including Language barrier Preferred method of Learning: Visual Topic(s): Signs and Symptoms of Infection and Fluid Management Teaching Tools: Explanation Response to Education: Verbalized Understanding [facility] Interpretation and review of laboratory results Normal [facility] Performed by: [facility], [address] [place] [address] CLIA ID: [id number] [facility] Interpretation and review of laboratory results Abnormal [facility] Performed by: [facility], [address] [place] [address] CLIA ID: [id number] [facility] Interpretation and review of laboratory results Abnormal [facility] Performed by: [facility], [address] [place] [address] CLIA ID: [id number] [facility] Interpretation and review of laboratory results Abnormal [facility] Performed by: [facility], [address] [place] [address] CLIA ID: [id number] [facility] Interpretation and review of laboratory results Abnormal [facility] Parathyrin.intact [Mass/Vol] on 01-18-2024 Interpretation and review of laboratory results Abnormal [facility] TSH Qnon 01-18-2024 Interpretation and review of laboratory results Normal [facility] BASIC METABOLIC PANELon 08-3 Anion gap [Moles/Vol] 14 mmol/L High 3-13 [facility] Comment on above: Performed By: #### L [id number], [id number] #### Loan Closer: MINESH THRASHER ([id number]) [facility] [address] [place] [address] [place] Calcium [Mass/Vol] 11.7 mg/dL High 8.4-10.4 [facility] Comment on above: Performed By: #### Ranulfo [id number], [id number] #### Loan Closer: MINESH THRASHER ([phone]) [facility] [address] [place] [address] [place] Chloride [Moles/Vol] 101 mmol/L Normal 98-107 [facility] Comment on above: Performed By: #### L [id number], [id number] #### Loan Closer: MINESH THRASHER ([id number]) [facility] ([facility]) [address] [place] [address] [place] CO2 [Moles/Vol] 21 mmol/L Low 22-30 [facility] Comment on above: Performed By: #### L [id number], [id number] #### Loan Closer: MINESH THRASHER ([phone]) [facility] [address] [place] [address] [place] Creatinine [Mass/Vol] 11.51 mg/dL High 0.66-1.25 [facility] Comment on above: Performed By: #### L [id number], [id number] #### Loan Closer: MINESH THRASHER ([phone]) [facility] [address] [place] [address] [place] GLOMERULAR FILTRATION RATE ML/MIN/1.73 SQ M.PREDICTED 4.3 mL/min/1.73m*2 Low >60.0 [facility] Comment on above: Result Comment: Calc ulation based on the Chronic Kidney Disease Epidemiology Collaboration (CKD-EPI) equation refit without adjustment for race Performed By: #### L [id number], [id number] #### Loan Closer: MINESH THRASHER ([id number]) [facility] ([facility]) [address] [place] [address] Glucose [Mass/Vol] 87 mg/dL Normal 70-100 [facility] Comment on above: Performed By: #### L [id number], [id number] #### Loan Closer: MINESH THRASHER ([id number]) [facility] ([facility]) [address] [place] [address] Potassium [Moles/Vol] 4.2 mmol/L Normal 3.5-5.1 [facility] Comment on above: Performed By: #### L [id number], [id number] #### Loan Closer: MINESH THRASHER ([id number]) [facility] ([facility]) [address] [place] [address] Sodium [Moles/Vol] 136 mmol/L Normal 135-145 [facility] Comment on above: Performed By: #### L [id number], [id number] #### Loan Closer: MINESH THRASHER ([phone]) [facility] ([facility]) [address] [place] [address] [place] Urea nitrogen [Mass/Vol] 70 mg/dL High 9-20 [facility] Comment on above: Performed By: #### L [id number], [id number] #### Loan Closer: MINESH THRASHER ([phone]) [facility]) [address] [place] [address] Basic metabolic 1998 panelon 01-17-2024 Anion gap [Moles/Vol] 14 mmol/L High 3 - 13 mmol/L [facility] Calcium [Mass/Vol] 11.7 mg/dL High 8.4 - 10. 4 mg/dL [facility] Chloride [Moles/Vol] 101 mmol/L 98 - 10 7 mmol/L [facility] CO2 [Moles/Vol] 21 mmol/L Low 22 - 30 mmol/L [facility] Creatinine [Mass/Vol] 11.51 mg/dL High 0.66 - 1.25 mg/dL [facility] GFR/1.73 sq M.predicted (S/P/Bld) [Vol rate/Area] 4.3 mL/min Low - PINF [facility] Comment on above: Calculation based on the Chronic Kidney Disease Epidemiology Collaboration (CKD-EPI) equation refit without adjustment for race Glucose [Mass/Vol] 87 mg/dL 70 - 100 mg/dL [facility] Interpretation and review of laboratory results Abnormal [facility] Potassium [Moles/Vol] 4.2 mmol/L 3.5 - 5.1 mmol/L [facility] Sodium [Moles/Vol] 136 mmol/L 135 - 145 mmol/L [facility] Urea nitrogen [Mass/Vol] 70 mg/dL High 9 - 20 mg/dL [facility] CBC W Auto Differential pane l (Bld)on 01-17-2024 Basophils (Bld) [#/Vol] 0.1 10*3/uL 0.0 - 0.2 10*3/uL [facility] Basophils/100 WBC (Bld) 0.6 % 0.0 - 2.0 % [facility] Eosinophils (Bld) [#/Vol] 0.2 10*3/uL 0.0 - 0.5 10*3/uL [facility] Eosinophils/100 WBC (Bld) 1.6 % 0.0 - 6.0 % [facility] Erythrocyte distribution width (RBC) [Ratio] 11.6 % 11.5 - 15.0 % [facility] Hematocrit (Bld) [Volume fraction] 35.2 % Low 40.0 - 52.0 % [facility] Hemoglobin (Bld) [Mass/Vol] 12.0 g/dL Low 13.0 - 18.0 g/dL [facility] Immature granulocytes (Bld) [#/Vol] 0.1 10*3/uL High NINF - 0.1 10*3/uL [facility] Immature granulocytes/100 WBC (Bld) 0.5 % 0.0 - 2.0 % [facility] Interpretation and review of laboratory results Abnormal [facility] Lymphocytes (Bld) [#/Vol] 2.1 10*3/uL 1.0 - 4.3 10*3/uL [facility] Lymphocytes/100 WBC (Bld) 21.9 % 15.0 - 45.0 % [facility] MCH (RBC) [Entitic mass] 30.3 pg 26.0 - 34.[address] [facility] MCHC (RBC) [Mass/Vol] 34.1 % 30.5 - 36.0 % [facility] MCV (RBC) [Entitic vol] 88.9 fL 77.0 - 99.[address] [facility] Monocytes (Bld) [#/Vol] 0.6 10*3/uL 0.0 - 0.9 10*3/uL [facility] Monocytes/100 WBC (Bld) 6.5 % 5.0 - 13.0 % [facility] Neutrophils (Bld) [#/Vol] 6.6 10*3/uL 1.8 - 7.5 10*3/uL [facility] Neutrophils/100 WBC (Bld) 68.9 % 38.0 - 82.0 % [facility] Nucleated RBC/100 WBC (Bld) [Ratio] 0.0 % [facility] Platelet mean volume (Bld) [Entitic vol] 9.9 fL 9.0 - 12.7 fL [facility] Platelets (Bld) [#/Vol] 241 10*3/uL 140 - 440 10*3/uL [facility] RBC (Bld) [#/Vol] 3.96 10*6/uL Low 4.40 - 5.9 0 10*6/uL [facility] WBC (Bld) [#/Vol] 9.6 10*3/uL 3.6 - 10.7 10*3/uL [facility] CBC WITH AUTO DIFFERENTIALon 01-17-2024 Basophils (Bld) [#/Vol] 0.1 10*3/uL Normal 0.0-0.2 [facility] Comment on above: Performed By: #### L [id number] #### Loan Closer: MINESH THRASHER ([id number]) [facility] ([facility]) [address] [place] [address] Basophils/100 WBC (Bld) 0.6 % Normal 0.0-2.0 S [facility] Comment on above: Performed By: #### L [id number] #### Loan Closer: MINESH THRASHER ([id number]) [facility]) [address] [place] [address] Eosinophils (Bld) [#/Vol] 0.2 10*3/uL Normal 0.0-0.5 [facility] Comment on above: Performed By: #### L [id number] #### Loan Closer: MINESH THRASHER ([id number]) [facility]) [address] [place] [address] Eosinophils/100 WBC (Bld) 1.6 % Normal 0.0-6.0 [facility] Comment on above: Performed By: #### L [id number] #### Loan Closer: MINESH THRASHER ([phone]) [facility]) [address] [place] [address] Erythrocyte distribution width (RBC) [Ratio] 11.6 % Normal 11.5-15.0 [facility] Comment on above: Performed By: #### L [id number] #### Loan Closer: MINESH THRASHER ([id number]) [facility]) [address] [place] [address] Hematocrit (Bld) [Volume fraction] 35.2 % Low 40.0-52.0 [facility] Comment on above: Performed By: #### L [id number] #### Loan Closer: MINESH THRASHER ([id number]) [facility]) [address] [place] [address] Hemoglobin (Bld) [Mass/Vol] 12.0 g/dL Low 13.0-18.0 [facility] Comment on above: Performed By: #### L [id number] #### Loan Closer: MINESH THRASHER ([phone]) [facility]) [address] [place] [address] IMMATURE GRANS % 0.5 % Normal 0.0-2.0 [facility] Comment on above: Performed By: #### L [id number] #### Loan Closer: MINESH THRASHER ([phone]) [facility]) [address] [place] [address] IMMATURE GRANS ABSOLUTE 0.1 10*3/uL High <0.1 [facility] Comment on above: Performed By: #### L [id number] #### Loan Closer: MINESH THRASHER ([id number]) [facility]) [address] [place] [address] Lymphocytes (Bld) [#/Vol] 2.1 10*3/uL Normal 1.0-4.3 [facility] Comment on above: Performed By: #### L [id number] #### Loan Closer: MINESH THRASHER ([id number]) [address] Lymphocytes/100 WBC (Bld) 21.9 % Normal 15.0-45.0 [facility] Comment on above: Performed By: #### L [id number] #### Loan Closer: MINESH THRASHER ([id number]) [facility]) [address] [place] [address] MCH (RBC) [Entitic mass] 30.3 pg Normal 26.0-34.0 [facility] Comment on above: Performed By: #### L [id number] #### Loan Closer: MINESH THRASHER ([id number]) [facility]) [address] [place] [address] MCHC 34.1 % Normal 30.5-36.0 [facility] Comment on above: Performed By: #### L [id number] #### Loan Closer: MINESH THRASHER ([id number]) [address] MCV (RBC) [Entitic vol] 88.9 fL Normal 77.0-99.0 S [facility] Comment on above: Performed By: #### L [id number] #### Loan Closer: MINESH THRASHER ([id number]) [facility] ([facility]) [address] [place] [address] Monocytes (Bld) [#/Vol] 0.6 10*3/uL Normal 0.0-0.9 [facility] Comment on above: Performed By: #### L [id number] #### Loan Closer: MINESH THRASHER ([id number]) [facility] [address] [place] [address] [place] Monocytes/100 WBC (Bld) 6.5 % Normal 5.0-13.0 [facility] Comment on above: Performed By: #### L [id number] #### Loan Closer: MINESH THRASHER ([id number]) [facility] [address] [place] [address] NEUTROPHILS ABSOLUTE 6.6 10*3/uL Normal 1.8-7.5 [facility] Comment on above: Performed By: #### L [id number] #### Loan Closer: MINESH THRASHER ([id number]) [facility] [address] [place] [address] Neutrophils/100 WBC (Bld) 68.9 % Normal 38.0-82.0 [facility] Comment on above: Performed By: #### L [id number] #### Loan Closer: MINESH THRASHER ([id number]) [facility] ([facility]) [address] [place] [address] NRBC 0.0 /100 WBCs Normal 0.0-2.0 [facility] Comment on above: Performed By: #### L [id number] #### Loan Closer: MINESH THRASHER ([id number]) [facility] [address] [place] [address] Platelet mean volume (Bld) [Entitic vol] 9.9 fL Normal 9.0-12.7 [facility] Comment on above: Performed By: #### L [id number] #### Loan Closer: MINESH THRASHER ([phone]) [facility] [address] [place] [address] Platelets (Bld) [#/Vol] 241 10*3/uL Normal 140-440 [facility] Comment on above: Performed By: #### L [id number] #### Loan Closer: MINESH THRASHER ([id number]) [facility] ([facility]) [address] [place] [address] RBC (Bld) [#/Vol] 3.96 10*6/uL Low 4.40-5.90 [facility] Comment on above: Performed By: #### L [id number] #### Loan Closer: MINESH THRASHER ([id number]) [facility] ([facility]) [address] [place] [address] WBC (Bld) [#/Vol] 9.6 10*3/uL Normal 3.6-10.7 [facility] Comment on above: Performed By: #### L [id number] #### Loan Closer: MINESH THRASHER ([id number]) [facility] ([facility]) [address] [place] [address] ECG 12-LEADon 01-17-2024 ECG 12-LEAD IMPRESSION: Sinus rhythm Borderline left axis deviation Electronically Signed On 01-17-2024 22:34:34 EDT by Rakesh Rivera [facility] ED Provider Noteon ED Provider Note Emergency Department Encounter [facility] Patient: Noé Hughes : 1950 Date of Evaluation: 01/17/2024 ED ANTONY Provider: Gil Mcclellan PA-C EDcare was supervised by Dr. Frazier who independently examined and evaluated the patient. Please see their attestation note for further details. Chief Complaint Chief Complaint Patient presents with Bradycardia Pt presents from ED via EMS from [facility] for a junctional bradycardia in the low 30s. Pt was at [facility] when he got SOB and dizzy. He went to the pharmacy to have his blood pressure taken. Per pt daughter, BP was low. Pt brought to ER in [place]. Pt was hypotensive. Given 0.5 atropine. Per EMS pt HR went into the 50-60s. Pt is A&Ox4. GCS 15. Denies CP/SOB. [place] I was wearing a N95, Surgical mask for the entirety of this encounter. Noé Hughes is a 73 y.o. male who presents to the emergency department for bradycardia. Patient was transferred here from outside hospital. Patient is here with family. Patient reportedly was getting dizzy and short of breath today. Patient was found to be bradycardic. Patient was given atropine in outside hospital. Patient is feeling better at this time. Patient does not have a pacemaker. No significant cardiac history. Denies chest pain. Limitations to history: None Outside historians: EMR and family Past History No past medical history on file. No past surgical history on file. Social History Socioeconomic History Marital status: Medications/Allergie s Previous Medications ATORVASTATIN (LIPITOR) 20 MG TABLET Take 20 mg by mouth daily. B COMPLEX-VITAMIN C-FOLIC ACID (NEPHRO-JORDON RX) 1 MG TABLET Take 1 tablet by mouth daily (with breakfast). CALCITRIOL (ROCALTROL) 0.5 MCG CAPSULE Take 0.5 mcg by mouth daily. DOCUSATE SODIUM (COLACE) 100 MG CAPSULE Take 100 mg by mouth 2 times daily. FELODIPINE ER (PLENDIL) 10 MG 24 HR TABLET Take 10 mg by mouth daily. Do not crush, chew, or split. FERROUS SULFATE (FEROSUL) 325 (65 FE) MG TABLET Take 325 mg by mouth in the morning and 325 mg in the evening. INSULIN GLARGINE (LANTUS) 100 UNIT/ML INJECTION Inject 30 Units under the skin every morning. LACTULOSE (CHRONULAC) 10 GM/15ML SOLUTION Take 20 g by mouth 2 times daily. PANTOPRAZOLE (PROTONIX) 20 MG EC TABLET Take 40 mg by mouth every morning (before breakfast). Do not crush, chew, or split. SEVELAMER (RENAGEL) 800 MG TABLET Take 800 mg by mouth in the morning and 800 mg at noon and 800 mg in the evening. Take with meals. Swallow tablet whole; do not crush, break, or chew.. No Known Allergies Physical Exam BP (!) 160/63 (BP Location: Left arm, Patient Position: Lying) Pulse 54 Resp 19 SpO2 98% Physical Exam GENERAL APPEARANCE: Awake and alert. Cooperative. HEENT: Normocephalic. Atraumatic. No trismus. NECK: Supple. Trachea midline. CARDIO: Normal rate. Radial pulses symmetrical and palpable LUNGS: Respirations unlabored. CTAB. ABDOMEN: Soft. Non-distended. Non-tender throughout. MUSCULOSKELETAL: No acute deformities. SKIN: Warm and dry. NEUROLOGICAL: No gross facial drooping. No obvious neurologic deficits. Moves all 4 extremities spontaneously. SCREENINGS D Labs: Results for orders placed or performed during the hospital encounter of 01/17/24 Basic metabolic panel Result Value Ref Range SODIUM 136 135 - 145 mmol/L POTASSIUM 4.2 3.5 - 5.1 mmol/L CHLORIDE 101 98 - 107 mmol/L CARBON DIOXIDE 21 (L) 22 - 30 mmol/L UREA NITROGEN 70 (H) 9 - 20 mg/dL CREATININE 11.51 (H) 0.66 - 1.25 mg/dL GLUCOSE 87 70 - 100 mg/dL CALCIUM 11.7 (H) 8.4 - 10.4 mg/dL ANION GAP 14 (H) 3 - 13 mmol/L eGFR 4.3 (L) >60.0 mL/min/1.73m*2 CBC auto differential Result Value Ref Range Auto WBC 9.6 3.6 - 10.7 10*3/uL RBC 3.96 (L) 4.40 - 5.90 10*6/uL Hemoglobin 12.0 (L) 13.0 - 18.0 g/dL Hematocrit 35.2 (L) 40.0 - 52.0 % MCV 88.9 77.0 - 99.0 fL MCH 30.3 26.0 - 34.0 pg MCHC 34.1 30.5 - 36.0 % RDW 11.6 11.5 - 15.0 % Platelets 241 140 - 440 10*3/uL MPV 9.9 9.0 - 12.7 fL nRBC 0.0 0.0 - 2.0 /100 WBCs Neutrophils Relative 68.9 38.0 - 82.0 % Lymphocytes Relative 21.9 15.0 - 45.0 % Monocytes Relative 6.5 5.0 - 13.0 % Eosinophils Relative 1.6 0.0 - 6.0 % Basophils Relative 0.6 0.0 - 2.0 % Immature Grans % 0.5 0.0 - 2.0 % Neutrophils Absolute 6.6 1.8 - 7.5 10*3/uL Lymphocytes Absolute 2.1 1.0 - 4.3 10*3/uL Monocytes Absolute 0.6 0.0 - 0.9 10*3/uL Eosinophils Absolute 0.2 0.0 - 0.5 10*3/uL Basophils Absolute 0.1 0.0 - 0.2 10*3/uL Immature Grans Absolute 0.1 (H) <0.1 10*3/uL Troponin, with Serial Reflex Result Value Ref Range TROPONIN I 0.023 <0.034 ng/mL ECG 12 lead Result Value Ref Range Heart Rate 60 bpm QRSD Interval 108 ms QT Interval 387 ms QTC Interval 386 ms P Manson 64 degrees QRS Manson -29 degrees T Wave Manson 7 degrees SC Interval 166 ms Radiographs: No orders to display (more content not included)... Normal [facility] ED Provider Note Emergency Department Encounter [facility] Patient: Noé Hughes : 1950 Date of Evaluation: 01/17/2024 ED Supervising Physician: Dixon Frazier MD HPI: I independently examined and evaluated Noé Hughes. In brief, Noé Hughes is a 73 y.o. male that presents to the emergency department for evaluation of abnormal EKG. Patient seen at OSH after near-syncope. Found to have bradycardia to 30s. Given atropine and transferred for cardiology evaluation. Patient now in NSR in 60s. Normotensive. Focused exam: Awake, alert, no acute distress. Breathing comfortably on room air. Breath sounds clear to auscultation. Regular rate and rhythm. Abdomen soft, non-distended, non-tender. Moves all extremities equally. Distal pulses intact and equal bilaterally. EMERGENCY DEPARTMENT COURSE and DIFFERENTIAL DIAGNOSIS/MDM: Vitals: Vitals: 01/17/242015 BP: 111/71 BP Location: Left arm Pulse: 60 Resp: 16 SpO2: 99% Brief Course: The patient presented with a chief complaint of bradycardia. Concern for complete heart block, but on my review of EKG suspect junctional escape. No major electrolyte abnormalities in setting of ESRD. Patient will be admitted. Discussed with caridiology. Will place on tele and have EP consulted for tomorrow. Patient agreeable. See antony note for details. Disposition: The patient will be admitted Critical Care Statement: Total critical care time today provided was at least 0 minutes. All diagnostic, treatment, and disposition decisions were made by myself in conjunction with the resident and/or ANTONY. For all further details of the patient's emergency department visit, please see their documentation. (Please note that portions of this note may have been completed with a voice recognition program. Efforts were made to edit the dictations but occasionally words are mis-transcribed.) Dixon Frazier MD [employer] Dixon Frazier MD 01/18/24 0011 [facility] HEMOGLOBIN A1Con 01-17-2024 Glucose [Mass/Vol] 157 mg/dL [facility] Comment on above: Performed By: #### L [id number] ####[employer]: MINESH THRASHER ([phone])[address] HbA1c (Bld) [Mass fraction] 7.1 % High <5.7 [facility] Comment on above: Result Comment: Norm al less than 5.7% Prediabetes 5.7% to 6.4% Diabetes 6.5% or higher --HgbA1C levels may not be accurate in patients who have renal disease, received recent blood transfusions, are anemic, or who have dyshemoglobinemia. Performed By: #### L [id number] ####[employer]: MINESH THRASHER ([phone])[facility] ([facility])[address] [place] [address] Laboratory - Chemistry and C hemistry - challengeon 01-17-2024 Magnesium [Mass/Vol] 2.3 mg/dL 1.6 - 2 .3 mg/dL [facility] Troponin I.cardiac [Mass/Vol] 0.023 ng/mL NINF - 0.034 ng/mL [facility] MAGNESIUMon 01-17-2024 Magnesium [Mass/Vol] 2.3 mg/dL Normal 1.6-2.3 [facility] Comment on above: Performed By: #### L [id number], [id number] #### [employer]: MINESH THRASHER ([phone]) [facility] ([facility]) [address] [place] [address] Magnesium [Mass/Vol]on 01-16 Interpretation and review of laboratory results Normal [facility] No Panel Informationon 01-16 [facility] Sinus rhythm Borderline left axis deviation Electronically Signed On 01-17-2024 22:34:34 EDT by Rakesh Phillips CV Rakesh Machado MD - 01/17/2024 IMPRESSION: Sinus rhythm Borderline left axis deviation Electronically Signed On 01-17-2024 22:34:34 EDT by Rakesh Phillips [employer] Panel InformationOrdered By: Rakesh Phillips on 01-17-2024 P Manson 64 degrees [employer] Work Phone: SC Interval 166 ms [facility] Work Phone: QRS Manson -29 degrees [employer] Work Phone: QRSD Interval 108 ms [employer]ome 1699t [employer] Work Phone: QT Interval 387 ms [employer] Work Phone: QTC Interval 386 ms [employer] Work Phone: T Wave Manson 7 degrees [employer] Work Phone: [employer] Work Phone: PHOSPHORUSon 01-17-2024 Phosphate [Mass/Vol] 7.2 mg/dL High 2.5-4.5 [facility] Comment on above: Performed By: #### L [id number], [id number] #### [employer]: MINESH THRASHER ([phone]) [facility] ([facility]) [address] [place] [address] [place] PTH INTACTon 01-17-2024 PTH, INTACT 62.3 pg/mL High 7.5-53.[address] [facility] Comment on above: Performed By: #### L [id number], [id number] #### [employer]: MINESH THRASHER ([phone]) [facility] ([facility]) [address] [place] [address] [place] Phosphate [Moles/Vol]on 12-20 Interpretation and review of laboratory results Abnormal [facility] [employer] Phosphate [Mass/Vol] 7.2 mg/dL High 2.5 - 4 .5 mg/dL [facility] [employer] THYROID STIMULATING HORMONEo n 01-17-2024 THYROID STIMULATING HORMONE 1.356 uIU/mL Normal 0.465-4.680 [facility] Comment on above: Performed By: #### L [id number], [id number] #### [employer]: MINESH THRASHER ([phone]) [facility] ([facility]) [address] [place] [address] TROPONIN, WITH SERIAL REFLEX on 01-17-2024 Troponin I.cardiac [Mass/Vol] 0.023 ng/mL Normal <0.034 [facility] Comment on above: Result Comment: BANDAR R COMMENTS: Patients with high levels of Biotin oral intake (ie >5 mg/day) may have falsely decreased Troponin levels. Performed By: #### L [id number], [id number] #### [employer]: MINESH THRASHER ([phone]) [facility] ([facility]) [address] [place] [address] [place] Troponin I.cardiac [Mass/Vol ]on 01-17-2024 Interpretation and review of laboratory results Normal [facility] Patients with high levels of Biotin oral intake (ie >5 mg/day) may have falsely decreased Troponin levels. [facility] Vital signsOrdered By: Edward Phillips on 01-17-2024 Heart rate 60 /min bpm [facility] Work Phone: Absolute lymphocyte countOrd ered By: Allen Jackson on 09-04-2023 Lymphocytes Auto (Unsp spec) [#/Vol] 2.10 10*3/uL 0.83-4.51 [facility] Automated lymphocyte count a s percentage of total leukocytesOrdered By: Allen Jackson on 09-04-2023 Lymphocytes/100 WBC Auto (Unsp spec) 25.8 % 19-41 [facility] Basophil percentageOrdered B y: Allen Jackson on 09-04-2023 Basophils/100 WBC (Bld) 0.9 % 0-1 [facility] Bilirubin [Mass/Vol] 0.40 mg/dL 0.20-1.00 [facility] Comment on above: For patients on eltr ombopag therapy, use of Dimension [place] TBIL is not recommended. Chloride [Moles/Vol] 100 mmol/L 98-107 [facility] Eosinophils/100 WBC (Bld) 3.8 % 0-5 [facility] Glucose [Mass/Vol] 95 mg/dL 74-106 [facility] Hemoglobin (Bld) [Mass/Vol] 11.7 g/dL 13.0-16.5 [facility] Monocytes/100 WBC (Bld) 8.2 % 0-10 [facility] Neutrophils (Bld) [#/Vol] 5.0 10*3/uL 2.0-7.7 [facility] Neutrophils/100 WBC (Bld) 60.9 % 47-70 [facility] Potassium [Moles/Vol] 4.4 mmol/L 3.5-5.1 [facility] Protein [Mass/Vol] 7.7 g/dL 6.4-8.2 [facility] Sodium [Moles/Vol] 137 mmol/L 136-145 [facility] WBC (Bld) [#/Vol] 8.1 10*3/uL 4.4-11.0 [facility] Determination of erythrocyte mean corpuscular volume (MCV)Ordered By: Allen Jackson on 09-04-2023 MCV (RBC) [Entitic vol] 91.7 fL 80-94 [facility] Erythrocyte distribution wid th ratioOrdered By: Allen Jackson 09-04-2023 Erythrocyte distribution width (RBC) [Ratio] 11.7 % 11.6-14.6 [facility] Erythrocyte distribution wid th standard deviationOrdered By: Allen Jackson 09-04-2023 Erythrocyte distribution width (RBC) [Entitic vol] 39.2 fL 35.1-43.9 [facility] Hematocrit Auto (Bld) [Volum e fraction]Ordered By: Allen Jackson 09-04-2023 Hematocrit (Bld) [Volume fraction] 35.2 % 40-54 [facility] Immature granulocytes/100 WB C Auto (Bld)Ordered By: Allen Jackson 09-04-2023 Immature granulocytes/100 WBC (Bld) 0.400 % 0.0-0.9 [facility] Comment on above: IG% - Immature Granu locytes (promyelocytes, myelocytes and metamyelocytes) > 1% indicates that a LEFT SHIFT is Present. Laboratory - Chemistry and C hemistry - challengeOrdered By: Allen Jackson 09-04-2023 Albumin/Globulin [Mass ratio] 0.9 {ratio} 0.9-2.4 [facility] ALP [Catalytic activity/Vol] 80 U/L 45-117 [facility] ALT [Catalytic activity/Vol] 25 U/L 16-61 [facility] CO2 [Moles/Vol] 31.0 mmol/L 21.0-32.0 [facility] Globulin (S) [Mass/Vol] 4.0 g/dL 2.2-4.2 [facility] Urea nitrogen/Creatinine [Mass ratio] 4.5 mg/mg 10-20 [facility] Laboratory - Hematology and Cell countsOrdered By: Allen Jackson on 09-04-2023 MCH (RBC) [Entitic mass] 30.5 pg 27.0-32.0 [facility] MCHC (RBC) [Mass/Vol] 33.2 g/dL 32-36 [facility] Nucleated RBC/100 WBC (Bld) [Ratio] 0 % 0-5 [facility] Platelet mean volume (Bld) [Entitic vol] 8.9 fL 6.2-12.0 [facility] Platelets (Bld) [#/Vol] 221 10*3/uL 150-450 [facility] No Panel InformationOrdered By: Allen Jackson on 09-04-2023 Estimated GFR (MDRD) Amer 6 mL/min >60 [facility] Comment on above: GFR Calc Estimated GFR (MDRD) Non-Af Amer 5 mL/min >60 [facility] Comment on above: Non- GFR Calc Vitamin D 25-Hydroxy 18.0 ng/mL [facility] Comment on above: Vitamin D 25(OH) Sta tus Range Deficiency <20 ng/mL (50nmol/L) Insufficiency 20 - 30 ng/mL (50 - 75 nmol/L) Sufficiency 30 - 100 ng/mL (75 - 250 nmol/L) Toxicity >100 ng/mL (>250 nmol/L) RBC Auto (Bld) [#/Vol]Ordere d By: Allen Jackson on 09-04-2023 RBC (Bld) [#/Vol] 3.84 10*6/uL 4.6-6.2 [facility] Serum or plasma calcium ian urement (mass/volume)Ordered By: Allen Jackson on 09-04-2023 Calcium [Mass/Vol] 10.0 mg/dL 8.5-10.1 [facility] Serum or plasma creatinine m easurement (mass/volume)Ordered By: Allen Jackson on 09-04-2023 Creatinine [Mass/Vol] 11.00 mg/dL 0.70-1.30 [facility] Comment on above: Critical Result(s) C alled at: 15:54:23 09/04/2023 by: Jes Arana to Deysi VILLASENOR. Results read back by same.The validity of the calculated GFR & GFRAA in patients over 70 years has not been determined. Clinical correlation is essential. Serum or plasma thyroid stim ulating hormone (TSH) measurement (units/volume)Ordered By: Allen Jackson on 09-04-2023 TSH Qn 0.97 uIU/mL 0.358-3.74 [facility] Serum or plasma urea nitroge n measurement (mass/volume)Ordered By: Allen Jackson on 09-04-2023 Urea nitrogen [Mass/Vol] 49 mg/dL 7-18 [facility] Thin prep Papanicolaou smear with manual screeningOrdered By: Allen Jackson on 09-04-2023 Thin prep Papanicolaou smear with manual screening 3.7 g/dL 3.2-5.0 [facility] Thin prep Papanicolaou smear with manual screening 17 U/L 15-37 [facility] Thin prep Papanicolaou smear with manual screening 6 5-15 [facility] Absolute lymphocyte countOrd ered By: Allen Jackson on 11-21-2022 Lymphocytes Auto (Unsp spec) [#/Vol] 2.26 10*3/uL 0.83-4.51 [facility] Basophil percentageOrdered B y: Allen Jackson on 11-21-2022 Basophils/100 WBC (Bld) 0.6 % 0-1 [facility] Bilirubin [Mass/Vol] 0.40 mg/dL 0.20-1.00 [facility] Comment on above: For patients on eltr ombopag therapy, use of Dim[place] TBIL is not recommended. Chloride [Moles/Vol] 104 mmol/L 98-107 [facility] Eosinophils/100 WBC (Bld) 4.7 % 0-5 [facility] Glucose [Mass/Vol] 189 mg/dL 74-106 [facility] Comment on above: Fasting Glucose resu lt greater than or equal to 126 mg/dL suggests DIABETES MELLITUS per A.D.A. criteria. Neutrophils (Bld) [#/Vol] 4.9 10*3/uL 2.0-7.7 [facility] Neutrophils/100 WBC (Bld) 60.1 % 47-70 [facility] Potassium [Moles/Vol] 4.8 mmol/L 3.5-5.1 [facility] Protein [Mass/Vol] 8.1 g/dL 6.4-8.2 [facility] Sodium [Moles/Vol] 134 mmol/L 136-145 [facility] WBC (Bld) [#/Vol] 8.2 10*3/uL 4.4-11.0 [facility] Blood erythrocytes count (nu mber/volume)Ordered By: Allen Jackson on 11-21-2022 RBC (Bld) [#/Vol] 4.69 10*6/uL 4.6-6.2 [facility] Blood hemoglobin measurement (mass/volume)Ordered By: Allen Jackson on 11-21-2022 Hemoglobin (Bld) [Mass/Vol] 13.1 g/dL 13.0-16.5 [facility] Blood lymphocytes/100 leukoc ytesOrdered By: Allen Jackson on 11-21-2022 Lymphocytes/100 WBC (Bld) 27.7 % 19-41 [facility] Blood monocytes/100 leukocyt esOrdered By: Allen Jackson on 11-21-2022 Monocytes/100 WBC (Bld) 6.4 % 0-10 [facility] Blood platelet mean volumeOr dered By: Allen Jackson on 11-21-2022 Platelet mean volume (Bld) [Entitic vol] 10.0 fL 6.2-12.0 [facility] Determination of erythrocyte mean corpuscular volume (MCV)Ordered By: Allen Jackson on 11-21-2022 MCV (RBC) [Entitic vol] 84.2 fL 80-94 [facility] Hematocrit Auto (Bld) [Volum e fraction]Ordered By: Allen Jackson on 11-21-2022 Hematocrit (Bld) [Volume fraction] 39.5 % 40-54 [facility] Laboratory - Chemistry and C hemistry - challengeOrdered By: Allen Jackson on 11-21-2022 ALP [Catalytic activity/Vol] 136 U/L 45-117 [facility] ALT [Catalytic activity/Vol] 40 U/L 16-61 [facility] CO2 [Moles/Vol] 21.0 mmol/L 21.0-32.0 [facility] Globulin (S) [Mass/Vol] 4.5 g/dL 2.2-4.2 [facility] Urea nitrogen/Creatinine [Mass ratio] 13.1 mg/mg 10-20 [facility] Laboratory - Hematology and Cell countsOrdered By: Allen Jackson on 11-21-2022 Erythrocyte distribution width (RBC) [Entitic vol] 38.3 fL 35.1-43.9 [facility] Erythrocyte distribution width (RBC) [Ratio] 12.6 % 11.6-14.6 [facility] Immature granulocytes/100 WBC (Bld) 0.500 % 0.0-0.9 [facility] Comment on above: IG% - Immature Granu locytes (promyelocytes, myelocytes and metamyelocytes) > 1% indicates that a LEFT SHIFT is Present. MCH (RBC) [Entitic mass] 27.9 pg 27.0-32.0 [facility] Nucleated RBC/100 WBC (Bld) [Ratio] 0 % 0-5 [facility] MCHC Auto (RBC) [Mass/Vol]Or dered By: Allen Jackson on 11-21-2022 MCHC (RBC) [Mass/Vol] 33.2 g/dL 32-36 [facility] No Panel InformationOrdered By: Allen Jackson on 11-21-2022 Estimated GFR (MDRD) Amer 13 mL/min >60 [facility] Comment on above: GFR Calc Estimated GFR (MDRD) Non-Af Amer 10 mL/min >60 [facility] Comment on above: Non- GFR Calc Hepatitis C Antibody Non-Reactive Nonreactive [facility] Comment on above: Non Reactive: < 0.8 Equivocal: >/= 0.8 to < 1.0 Reactive: >/= 1.0The CDC recommends that a reactive/equivocal HCV antibody result be followed up by the HCV Nucleic Acid Amplificationtest (666181) Thyroid Stimulating Hormone (TSH) 0.75 uIU/mL 0.358-3.74 [facility] Vitamin D 25-Hydroxy 32.5 ng/mL [facility] Comment on above: Vitamin D 25(OH) Sta tus Range Deficiency <20 ng/mL (50nmol/L) Insufficiency 20 - 30 ng/mL (50 - 75 nmol/L) Sufficiency 30 - 100 ng/mL (75 - 250 nmol/L) Toxicity >100 ng/mL (>250 nmol/L) Platelets bldOrdered By: Allen Jackson on 11-21-2022 Platelets (Bld) [#/Vol] 255 10*3/uL 150-450 [facility] Serum or plasma albumin ian urement (mass/volume)Ordered By: Allen Jackson on 11-21-2022 Albumin [Mass/Vol] 3.6 g/dL 3.2-5.0 [facility] Serum or plasma albumin/glob ulin mass ratioOrdered By: Allen Jackson 11-21-2022 Albumin/Globulin [Mass ratio] 0.8 {ratio} 0.9-2.4 [facility] Serum or plasma calcium ian urement (mass/volume)Ordered By: Allen Jackson 11-21-2022 Calcium [Mass/Vol] 9.5 mg/dL 8.5-10.1 [facility] Serum or plasma creatinine m easurement (mass/volume)Ordered By: Allen Jackson 11-21-2022 Creatinine [Mass/Vol] 5.81 mg/dL 0.70-1.30 [facility] Comment on above: The validity of the calculated GFR & GFRAA in patients over 70 years has not been determined. Clinical correlation is essential. Serum or plasma urea nitroge n measurement (mass/volume)Ordered By: Allen Jackson on 11-21-2022 Urea nitrogen [Mass/Vol] 76 mg/dL 7-18 [facility] Thin prep Papanicolaou smear with manual screeningOrdered By: Allen Jackson 11-21-2022 Thin prep Papanicolaou smear with manual screening 20 U/L 15-37 [facility] Thin prep Papanicolaou smear with manual screening 9 5-15 [facility] Vital Signs Date Time Vital Sign Value Performing Clinician Facility 12-30-2024 09:20-0400 Body height 170.[address] Allen Jackson MD Work Phone: [facility] 12-30-2024 09:20-0400 Body mass index (BMI) [Ratio] 23.9 kg/m2 Dr. Allen Jackson MD Work Phone: [facility] 12-30-2024 09:20-0400 Body weight 69.[address] Allen Jackson MD Work Phone: [facility] 12-30-2024 09:20-0400 Diastolic blood pressure 64 mm[Hg] Dr. Allen Jackson MD Work Phone: [facility] 12-30-2024 09:20-0400 Heart rate 64 /min Dr. Allen Jackson MD Work Phone: [facility] 12-30-2024 09:20-0400 Respiratory rate 16 /min Dr. Allen Jackson MD Work Phone: [facility] 12-30-2024 09:20-0400 Systolic blood pressure 116 mm[Hg] Dr. Allen Jackson MD Work Phone: [facility] 12-25-2024 11:00-0400 Body height 172.7 cm Kali Gibson DPM Work Phone: [facility] 12-25-2024 11:00-0400 Body mass index (BMI) [Ratio] 22.5 kg/m2 Kali Gibson DPM Work Phone: [facility] 12-25-2024 11:00-0400 Body weight 67.13 kg Kali Gibson DPM Work Phone: [facility] 12-25-2024 11:00-0400 Respiratory rate 18 /min Kali Gibson DPM Work Phone: [facility] 12-04-2024 15:03-0400 Body height 172.7 cm Kali Gibson DPM Work Phone: [facility] 12-04-2024 15:03-0400 Body mass index (BMI) [Ratio] 22.5 kg/m2 Kali Kishman DPM Work Phone: [facility] 12-04-2024 15:03-0400 Body weight 67.13 kg Kali Kishman DPM Work Phone: [facility] 12-04-2024 15:03-0400 Respiratory rate 16 /min Kali Kishman DPM Work Phone: [facility] 11-13-2024 08:04-0400 Body height 172.7 cm Kali Kishman DPM Work Phone: [facility] 11-13-2024 08:04-0400 Body mass index (BMI) [Ratio] 22.5 kg/m2 Kali Kishman DPM Work Phone: [facility] 11-13-2024 08:04-0400 Body weight 67.13 kg Kali Kishman DPM Work Phone: [facility] 11-13-2024 08:04-0400 Respiratory rate 20 /min Kali Kishman DPM Work Phone: [facility] 10-13-2024 10:58-0400 Body height 172.7 cm Kali Kishman DPM Work Phone: [facility] 10-13-2024 10:58-0400 Body mass index (BMI) [Ratio] 22.5 kg/m2 Kali Kishman DPM Work Phone: [facility] 10-13-2024 10:58-0400 Body weight 67.13 kg Kali Kishman DPM Work Phone: [facility] 10-13-2024 10:58-0400 Respiratory rate 20 /min Kali Kishman DPM Work Phone: [facility] 10-05-2024 15:58-0400 Body height 170.[address] Allen Jackson MD Work Phone: [facility] 10-05-2024 15:58-0400 Body mass index (BMI) [Ratio] 19 kg/m2 Dr. Allen Jackson MD Work Phone: 8(155)813-542015 [place] [address] 10-05-2024 15:58-0400 Body weight [address] Allen Jackson MD Work Phone: 5(239)625-890215 [place] [address] 10-05-2024 15:58-0400 Diastolic blood pressure 51 mm[Hg] Dr. Allen Jackson MD Work Phone: 1(873)256-464821 [address] 10-05-2024 15:58-0400 Heart rate 81 /min Dr. Allen Jackson MD Work Phone: 1(518)175-821331 [place] [address] 10-05-2024 15:58-0400 Respiratory rate 16 /min Dr. Allen Jackson MD Work Phone: 1(098)642-137531 [place] [address] 10-05-2024 15:58-0400 Systolic blood pressure 125 mm[Hg] Dr. Allen Jackson MD Work Phone: 5(622)025-864931 [place] [address] 09-23-2024 08:24-0400 Body temperature 98 [degF] Dr. Allen Jackson MD Work Phone: 5(333)109-479631 [place] [address] 09-23-2024 08:24-0400 Diastolic blood pressure 60 mm[Hg] Dr. Allen Jackson MD Work Phone: 0(411)960-775715 [place] [address] 09-23-2024 08:24-0400 Heart rate 69 /min Dr. Allen Jackson MD Work Phone: 2(898)876-903721 [address] 09-23-2024 08:24-0400 Respiratory rate 17 /min Dr. Allen Jackson MD Work Phone: 8(477)499-592415 [place] [address] 09-23-2024 08:24-0400 SaO2% (BldA) [Mass fraction] 95 % Dr. Allen Jackson MD Work Phone: 5(792)921-235215 [place] [address] 09-23-2024 08:24-0400 Systolic blood pressure 124 mm[Hg] Dr. Allen Jackson MD Work Phone: 5(973)812-391931 [place] [address] 09-22-2024 22:31-0400 Body height 170.[address] Allen Jackson MD Work Phone: [facility] 09-22-2024 22:31-0400 Body mass index (BMI) [Ratio] 24.1 kg/m2 Dr. Allen Jackson MD Work Phone: [facility] 09-22-2024 22:31-0400 Body weight 69.[address] Allen Jackson MD Work Phone: [facility] 09-18-2024 14:57-0400 Body height 172.7 cm Kali Gibson DPM Work Phone: [facility] 09-18-2024 14:57-0400 Body mass index (BMI) [Ratio] 22.5 kg/m2 Kalikim Gibson DPM Work Phone: [facility] [facility] 09-18-2024 14:57-0400 Body weight 67.13 kg Kali Gibson DPM Work Phone: [facility] 09-18-2024 14:57-0400 Respiratory rate 18 /min Kali Gibson DPM Work Phone: [facility] 09-16-2024 08:22-0400 Body mass index (BMI) [Ratio] 24.1 kg/m2 Dr. Allen Jackson MD Work Phone: [facility] 09-16-2024 08:22-0400 Body weight 69.[address] Allen Jackson MD Work Phone: [facility] 09-16-2024 08:22-0400 Diastolic blood pressure 58 mm[Hg] Dr. Allen Jackson MD Work Phone: [facility] 09-16-2024 08:22-0400 Heart rate 77 /min Dr. Allen Jackson MD Work Phone: [facility] 09-16-2024 08:22-0400 Respiratory rate 18 /min Dr. Allen Jackson MD Work Phone: [facility] 09-16-2024 08:22-0400 Systolic blood pressure 109 mm[Hg] Dr. Allen Jackson MD Work Phone: [facility] 09-04-2024 12:57-0400 Body height 172.7 cm Kali Kishman DPM Work Phone: [facility] 09-04-2024 12:57-0400 Body mass index (BMI) [Ratio] 22.5 kg/m2 Kali Kishman DPM Work Phone: [facility] 09-04-2024 12:57-0400 Body weight 67.13 kg Kali Kishman DPM Work Phone: [facility] 09-04-2024 12:57-0400 Respiratory rate 18 /min Kali Kishman DPM Work Phone: [facility] 08-28-2024 09:41-0400 Body height 172.7 cm Kali Kishman DPM Work Phone: [facility] 08-28-2024 09:41-0400 Body mass index (BMI) [Ratio] 22.5 kg/m2 Kali Kishman DPM Work Phone: [facility] 08-28-2024 09:41-0400 Body weight 67.13 kg Kali Kishman DPM Work Phone: [facility] 08-28-2024 09:41-0400 Respiratory rate 20 /min Kali Kishman DPM Work Phone: [facility] 08-12-2024 09:43-0400 Body height 172.7 cm Kali Kishman DPM Work Phone: [facility] 08-12-2024 09:43-0400 Body mass index (BMI) [Ratio] 22.5 kg/m2 Kali Kishman DPM Work Phone: [facility] 08-12-2024 09:43-0400 Body weight 67.13 kg Kali Kishman DPM Work Phone: [facility] 08-12-2024 09:43-0400 Respiratory rate 20 /min Kali Kishman DPM Work Phone: [facility] 07-27-2024 10:27-0400 Body temperature 98.49 [degF] Mere Praisler-Wood GIFT CONSULTANT.HOPPER FEEDER Work Phone: [facility] 07-27-2024 10:27-0400 Body weight 67.5 kg Mere Praisler-Wood GIFT CONSULTANT.[facility] Work Phone: [facility] 07-27-2024 10:27-0400 Diastolic blood pressure 84 mm[Hg] Mere Praisler-Wood GIFT CONSULTANT.HOPPER FEEDER Work Phone: [facility] 07-27-2024 10:27-0400 Heart rate 74 /min Mere Praisler-Wood GIFT CONSULTANT.[facility] Work Phone: [facility] 07-27-2024 10:27-0400 Respiratory rate 16 /min Mere Praisler-Wood GIFT CONSULTANT.[facility] Work Phone: [facility] 07-27-2024 10:27-0400 SaO2% (BldA) [Mass fraction] 97 % Mere Praisler-Wood GIFT CONSULTANT.[facility] Work Phone: [facility] 07-27-2024 10:27-0400 Systolic blood pressure 162 mm[Hg] Mere Praisler-Wood GIFT CONSULTANT.[facility] Work Phone: [facility] 01-20-2024 10:05-0400 Body temperature 97.7 [degF] Dixon Frazier MD Work Phone: [facility] [employer] 01-20-2024 10:05-0400 Diastolic blood pressure 77 mm[Hg] Dixon Frazier MD Work Phone: [facility] [employer] 01-20-2024 10:05-0400 Heart rate 66 /min Dixon Frazier MD Work Phone: [facility] [employer] 01-20-2024 10:05-0400 Respiratory rate 16 /min Dixon Frazier MD Work Phone: [facility] [employer] 01-20-2024 10:05-0400 SaO2% (BldA) [Mass fraction] 99 % Dixon Frazier MD Work Phone: [facility] 01-20-2024 10:05-0400 Systolic blood pressure 153 mm[Hg] Dixon Frazier MD Work Phone: [facility] 01-20-2024 09:19-0400 Body mass index (BMI) [Ratio] 21.9 kg/m2 Dixon Frazier MD Work Phone: [facility] 01-20-2024 09:19-0400 Body weight 63.41 kg Dixon Frazier MD Work Phone: [facility] 01-18-2024 16:11-0400 Body height 170.2 cm Dixon Frazier MD Work Phone: [facility] Encounters Encounter Date Encounter Type Care Provider Facility Start: 03-31-2025 ambulatory [facility] Facility:[facility] Start: 03-24-2025 End: 03-24-2025 ambulatory Allen Jackson Facility:[facility] Start: 03-24-2025 ambulatory Bola Mcadams NP Facility :[facility] Start: 03-19-2025 End: 03-19-2025 [facility] Start: 03-18-2025 End: 03-18-2025 ambulatory Bola Mcadams TAPE DUPLICATOR Facility:[facility] Start: 02-26-2025 End: 02-26-2025 ambulatory KALI GIBSON [facility] Start: 12-30-2024 End: 12-30-2024 Patient encounter procedure Bola Mcadams TAPE DUPLICATOR-C -[facility] Work Phone: Start: 12-30-2024 End: 12-30-[address] Allne Jackson MD Work Phone: -[facility] Start: 12-25-2024 End: 12-25-2024 ambulatory KALI GIBSON [facility] Start: 12-25-2024 End: 12-25-[address] Allen Jackson MD Work Phone: -[facility] Start: 12-25-2024 End: 12-25-2024 Patient encounter procedure Kali Gibson DPM Work Phone: [facility] Comment on above: Post-operative state (Primary Dx); Trimalleolar fracture of ankle, closed, left, initial encounter; Type 1 diabetes mellitus with diabetic polyneuropathy (HCC); Localized edema Start: 12-14-[address] Allen Jackson MD Work Phone: -Laboratory Work Phone: Start: 12-14-2024 ambulatory Allen Mirtha Manuel Facility:[facility] Start: 12-04-2024 End: 12-04-2024 ambulatory KALI GIBSON Facility:[facility] Start: 12-04-2024 End: 12-04-2024 Patient encounter procedure Kali Gibson DPM Work Phone: [facility] Comment on above: Post-operative state (Primary Dx); Trimalleolar fracture of ankle, closed, left, initial encounter; Type 1 diabetes mellitus with diabetic polyneuropathy (HCC); CKD (chronic kidney disease) stage V requiring chronic dialysis (HCC) Start: 11-30-2024 Encounter for other preprocedural examination [facility] Start: 11-24-2024 End: 11-24-[address] Allen Jackson MD Work Phone: -Laboratory Start: 11-24-2024 End: 11-24-[address] Allen Jackson MD Work Phone: -Laboratory Work Phone: Start: 11-24-2024 End: 11-24-2024 ambulatory [facility] Start: 11-16-2024 End: 11-16-2024 Follow-up encounter Kali Gibson DPM Work Phone: [facility] Start: 11-13-2024 End: 11-13-2024 Patient encounter procedure Kali Gibson DPM Work Phone: [facility] Comment on above: Post-operative state (Primary Dx); Trimalleolar fracture of ankle, closed, left, initial encounter; Type 1 diabetes mellitus with diabetic polyneuropathy (HCC) Start: 11-13-2024 End: 11-13-2024 ambulatory [facility]ALI GIBSON [facility] Start: 10-13-2024 End: 10-13-2024 Patient encounter procedure Kali Gibson DPM Work Phone: [facility] Comment on above: Post-operative state (Primary Dx); Trimalleolar fracture of ankle, closed, left, initial encounter; Type 1 diabetes mellitus with diabetic polyneuropathy (HCC); CKD (chronic kidney disease) stage V requiring chronic dialysis ([facility] Start: 10-13-2024 End: 10-13-2024 ambulatory KALI GIBSON Facility:[facility] Start: 10-05-2024 End: 10-05-2024 Patient encounter procedure Bola DICKSON -[facility] Work Phone: Start: 10-05-2024 End: 10-05-[address] Allen Jackson MD Work Phone: [facility] Work Phone: Start: 09-25-2024 End: 09-25-[address] Allen Jackson MD Work Phone: [facility] Work Phone: Start: 09-25-2024 End: 09-25-[address] [facility] Work Phone: Start: 09-23-2024 End: 09-23-[address] Allen Jackson MD Work Phone: [facility] Work Phone: Start: 09-23-2024 End: 09-23-[address] [facility] Work Phone: Start: 09-23-2024 Non-patient / Non-visit Dr. Iveth Young MD -[facility] Start: 09-22-2024 End: 09-22-2024 ambulatory Allen Jackson [place] Start: 09-22-2024 End: 09-22-2024 Non-patient / Non-visit Dr. Apryl Mathew MD -[facility] Work Phone: Start: 09-22-2024 End: 09-23-2024 ambulatory Allen Jackson Facility:[facility] Start: 09-22-2024 End: 09-23-2024 Evaluation and management of inpatient Dr. Apryl Mathew MD -Progressive Care Unit Work Phone: Start: 09-22-2024 End: 09-23-[address] Allen Jackson MD Work Phone: [facility] Work Phone: Start: 09-18-2024 End: 09-18-2024 Patient encounter procedure Kali MERCHANTM Work Phone: [facility] Comment on above: Post-operative state (Primary Dx); Trimalleolar fracture of ankle, closed, left, initial encounter; Type 1 diabetes mellitus with diabetic polyneuropathy (HCC); CKD (chronic kidney disease) stage V requiring chronic dialysis (HCC) Start: 09-18-2024 End: 09-18-2024 ambulatory KALI GIBSON Facility:[facility] Start: 09-17-2024 End: 09-17-2024 Telephone encounter Kasie Lamar [facility] Start: 09-17-2024 End: 09-17-[address] Apryl Mathew MD -Laboratory Work Phone: Start: 09-16-2024 End: 09-16-[address] Apryl Mathew MD -[facility] Work Phone: Start: 09-16-2024 End: 09-17-2024 ambulatory Apryl Mathew Facility:[facility] Start: 09-04-2024 End: 09-04-2024 Patient encounter procedure Kali Gibson DPM Work Phone: [facility] Comment on above: Post-operative state (Primary Dx); Trimalleolar fracture of ankle, closed, left, initial encounter; Type 1 diabetes mellitus with diabetic polyneuropathy (HCC) Start: 09-04-2024 End: 09-04-2024 ambulatory KALI GIBSON [facility] Start: 08-28-2024 End: 08-28-2024 Patient encounter procedure Kali Gibson DPM Work Phone: [facility] Comment on above: Post-operative state (Primary Dx); Trimalleolar fracture of ankle, closed, left, initial encounter; Type 1 diabetes mellitus with diabetic polyneuropathy (HCC); CKD (chronic kidney disease) stage V requiring chronic dialysis ([facility] Start: 08-28-2024 End: 08-28-2024 ambulatory KALI GIBSON [facility] Start: 08-21-2024 End: 08-21-2024 ambulatory KALI GIBSON [facility] Start: 08-20-2024 End: 08-20-2024 Telephone encounter Kali MERCHANTM Work Phone: [facility] Comment on above: Preparations For [employer] Start: 08-14-2024 End: 08-14-[address] Allen Jackson MD Work Phone: [facility] Work Phone: Start: 08-14-2024 End: 08-14-[address] Allen Jackson MD -Laboratory Work Phone: Start: 08-13-2024 End: 08-14-2024 Orders Only Klai Gibson DPM Work Phone: [facility] Comment on above: Closed trimalleolar fracture of left ankle, initial encounter (Primary Dx) Start: 08-12-2024 End: 08-12-2024 Patient encounter procedure Kali Gibson DPM Work Phone: [facility] Comment on above: Trimalleolar fractur e of ankle, closed, left, initial encounter (Primary Dx); Acute left ankle pain; Type 1 diabetes mellitus with diabetic polyneuropathy (HCC); CKD (chronic kidney disease) stage V requiring chronic dialysis ([facility]) Start: 08-12-2024 End: 08-12-2024 ambulatory KALI GIBSON [facility] Start: 08-11-2024 End: 08-11-2024 ambulatory ALLEN MIRTHA MANUEL Facility:[facility] Start: 08-11-2024 End: 08-11-2024 Patient encounter procedure Keanu Elliot DO Work Phone: [facility] Comment on above: Closed fracture of d istal end of left fibula, unspecified fracture morphology, initial encounter (Primary Dx) Start: 08-10-2024 End: 08-10-2024 ambulatory KEANU ZARATE Facility:[facility] Start: 08-10-2024 End: 08-10-2024 Subsequent hospital visit by physician [facility] Work Phone: Radiology Comment on above: Closed fracture of d istal end of left fibula, unspecified fracture morphology, initial encounter [S82.832A] Start: 08-05-2024 End: 08-05-2024 Orders Only Keanu Zarate DO Work Phone: Orthopaedics Comment on above: Closed fracture of d istal end of left fibula, unspecified fracture morphology, initial encounter (Primary Dx) Start: 07-28-2024 End: 07-28-2024 ambulatory MERE BRUNNER Facility:[facility] Start: 07-28-2024 End: 07-28-2024 Patient encounter procedure Keanu Zarate DO Work Phone: [facility] Comment on above: Closed fracture of d istal end of left fibula, unspecified fracture morphology, initial encounter Start: 07-27-2024 End: 07-27-2024 Subsequent hospital visit by physician [facility] Work Phone: Radiology Comment on above: Injury of left ankle , initial encounter [S99.912A] Start: 07-27-2024 End: 07-27-2024 [facility]ulatory [facility] Facility:[facility] Start: 07-27-2024 End: 07-27-2024 Patient encounter procedure Mere Brunner GIFT CONSULTANT.HOPPER FEEDER Work Phone: [facility] Comment on above: Injury of left ankle , initial encounter (Primary Dx); Foot injury, left, initial encounter; Closed fracture of distal end of left fibula, unspecified fracture morphology, initial encounter Start: 07-27-2024 End: 07-27-2024 ambulatory [facility] Start: 06-24-2024 End: 06-24-[address] Allen Jackson MD -Laboratory, Phy Office 3rd Flr Start: 06-24-2024 End: 06-24-2024 ambulatory [facility] [employer] Facility:[facility] Start: 04-20-2024 End: 04-20-2024 ambulatory [facility] Start: 02-05-2024 End: 02-05-2024 ambulatory [facility] Start: 01-21-2024 End: 01-28-2024 Telephone encounter Meet Belinda Charles MD Work Phone: [facility] Comment on above: Patient Education Start: 01-17-2024 End: 01-20-2024 Evaluation and management of inpatient Dixon Frazier MD Work Phone: [facility] Cardiac Post Intervention [facility] 4W Comment on above: Junctional bradycard ia (Primary Dx); Bradycardia Start: 09-04-2023 End: 09-04-2023 [facility] Work Phone: Start: 09-04-2023 End: 09-04-2023 Patient encounter procedure [facility]-Laboratory, Phy Office 3rd Flr Start: 11-21-2022 End: 11-21-2022 ambulatory [facility] Work Phone: Start: 11-21-2022 End: 11-21-2022 Patient encounter procedure [facility]-Laboratory, Phy Office 3rd Flr Procedures Date Procedure Procedure Detail Performing Clinician Start: 12-24-2024 Radex ankle complete minimum 3 views Kali Gibson DPM Work Phone: Start: 12-04-2024 Radex ankle complete minimum 3 views Kali Gibson DPM Work Phone: Start: 11-24-[address] Allen Jackson MD Work Phone: Start: 11-24-2024 Endomysial antibody IgA level Dr. Allen Jackson MD Work Phone: Start: 11-24-2024 Total iron binding c apacity measurement Dr. Allen Jackson MD Work Phone: Start: 11-13-2024 Radex ankle complete minimum 3 views Kali Gibson DPM Work Phone: Start: 11-13-2024 Cul bact xcpt urine blood/stool aerobic isol Kali MERCHANTM Work Phone: Start: 09-23-[address] Allen Jackson MD Work Phone: Start: 09-22-2024 Coagulation time, activated Dr. Allen Jackson MD Work Phone: Start: 09-18-2024 Radex ankle complete minimum 3 views Kali MERCHANTM Work Phone: Start: 09-17-2024 X-ray of chest, PA a nd lateral views Dr. Allen Jackson MD Work Phone: Start: 09-04-2024 Radex ankle complete minimum 3 views Kali MERCHANTM Work Phone: Start: 08-12-2024 Radiologic examinati on ankle 2 views Kali MERCHANTM Work Phone: Start: 07-27-2024 Radex ankle complete minimum 3 views Mere Brunner GIFT CONSULTANT.HOPPER FEEDER Work Phone: Start: 06-24-2024 Measurement of renal function Dr. Allen Jackson MD Work Phone: Comment on above: GFR Calc Start: 06-24-2024 Vitamin D, 25-hydrox y measurement Dr. Allen Jackson MD Work Phone: Comment on above: Vitamin D 25(OH) Sta tus Range Deficiency <20 ng/mL (50nmol/L) Insufficiency 20 - 30 ng/mL (50 - 75 nmol/L) Sufficiency 30 - 100 ng/mL (75 - 250 nmol/L) Toxicity >100 ng/mL (>250 nmol/L) Start: 01-20-2024 Glucose quantitative blood xcpt reagent strip Briana Lynn MD Work Phone: Start: 01-20-2024 Glucose quantitative blood xcpt reagent strip Briana Lynn MD Work Phone: Start: 01-20-2024 Radiologic exam chest 2 views Meet Belinda Charles MD Work Phone: Start: 01-20-2024 Basic metabolic pane l calcium total Jennifer Laquidara DO Work Phone: Start: 01-19-2024 Glucose quantitative blood xcpt reagent strip Briana Lynn MD Work Phone: Start: 01-19-2024 Peritoneal dialysis And rew Chiao DO Work Phone: Start: 01-19-2024 Glucose quantitative blood xcpt reagent strip Briana Lynn MD Work Phone: Start: 01-19-2024 Glucose quantitative blood xcpt reagent strip Briana Lynn MD Work Phone: Start: 01-19-2024 Electrophysiology study Meet Belinda Charles MD Work Phone: Start: 01-19-2024 Glucose quantitative blood xcpt reagent strip Briana Lynn MD Work Phone: Start: 01-19-2024 Basic metabolic pane l calcium total Jennifer Laquidara DO Work Phone: Start: 01-18-2024 Peritoneal dialysis And rew Chiao DO Work Phone: Start: 01-18-2024 Glucose quantitative blood xcpt reagent strip Briana Lynn MD Work Phone: Start: 01-18-2024 Glucose quantitative blood xcpt reagent strip Briana Lynn MD Work Phone: Start: 01-18-2024 Echo tthrc r-t 2d w/ wom-mode compl spec&colr d Freddie Erwin MD Work Phone: Start: 01-18-2024 Glucose quantitative blood xcpt reagent strip Briana Lynn MD Work Phone: Start: 01-18-2024 Glucose quantitative blood xcpt reagent strip Briana Lynn MD Work Phone: Start: 01-18-2024 Comprehensive metabolic panel Jennifer Pizarro DO Work Phone: Start: 01-18-2024 Hepatitis b surf ant ibody hbsab Jany Awan DO Work Phone: Start: 01-18-2024 Iaad ia hepatitis b surface antigen Jany Awan DO Work Phone: Start: 01-17-2024 Basic metabolic pane l calcium total Gil Mcclellan PA-C Work Phone: Start: 01-17-2024 Ecg routine ecg w/le ast 12 lds i&r only Gil Mcclellan PA-C Work Phone: Plan of Treatment Date Care Activity Detail Author Start: 12-29-2033 DTaP/Tdap/Td Vaccine s (3 - Td or Tdap) DTaP/Tdap/Td Vaccines (3 - Td or Tdap) [facility] Start: 12-29-2033 Urine microalbumin profile DTaP,Tdap,Td Vaccine (3 - Td or Tdap) [facility] Start: 07-13-2027 Diabetes Screening Diabetes Screenin g [facility] Start: 09-09-2026 Screening for malign ant neoplasm of colon [facility] Start: 07-13-2025 Creatinine measurement Serum Creatin ine [facility] Start: 02-24-2025 End: 02-24-2025 Patient encounter procedure 02/24/2025 8:15 AM EDT Office Visit [facility] [address] [place] [address] Kali Gibson DPM [address] [id number] 2 month follow up Left ankle [facility] Comment on above: 2 month follow up Le ft ankle Start: 01-19-2025 Diabetes: Estimated Glomerular Filtration Rate for [facility]ney Health Diabetes: Estimated Glomerular Filtration Rate for [facility] Start: 01-18-2025 Influenza vaccination [facility] Start: 01-16-2025 Hemoglobin A1c measurement Diabetes: Hemoglobin A1C [facility] Start: 01-14-2025 Covid-19 Vaccine ( season) Covid-19 Vaccine ( season) [facility] Start: 01-10-2025 Hemoglobin A1c measurement HbA1C [facility] Start: 12-25-2024 End: 12-25-2024 Patient encounter procedure 12/25/2024 11:00 AM EDT Office Visit [facility] [address] [place] [address] Kali Gibson, SHANTEL [address] [place] [address] l ankle 08/21/24 3 WEEK FU PER SHANTI [facility] Comment on above: l ankle 08/21/24 [address] [place] FU PER SHANTI Start: 12-04-2024 End: 12-04-2024 Patient encounter procedure 12/04/2024 3:00 PM EDT Office Visit [facility] [address] [place] [address] Kali Gibson, SHANTEL [address] [place] [address] l ankle 08/21/24 [facility] Comment on above: l ankle 08/21/24 Start: 11-13-2024 End: 11-13-2024 Patient encounter procedure 11/13/2024 8:15 AM EDT Office Visit [facility] [address] [place] [address] Kali Gibson, DPGarrett [address] [place] [id number] sx lf ankle 08/21/24 [facility] Comment on above: sx lf ankle 08/21/24 Start: 10-02-2024 End: 10-02-2024 Patient encounter procedure 10/02/2024 10:00 AM EDT Office Visit [facility] [address] [place] [phone] Kali Gibson DPM [address] [facility] [address] [place] [address] po 4/4 orif lt ankle trimalleolar fx...PER SHANTI [facility] Comment on above: po 4/4 orif lt ankle trimalleolar fx...PER SHANTI Start: 09-23-2024 Patient discharge [facility] Start: 09-22-2024 Following clinical pathway protocol [facility] Start: 09-22-2024 Continuous pulse oximetry [facility] Start: 09-22-2024 Ambulation without limitation [facility] Start: 09-22-2024 Pulse taking [facility] Start: 09-22-2024 Admission procedure [facility] Start: 09-22-2024 Cardiac monitoring [facility] Start: 09-22-2024 Cardiac rehabilitati on - phase 1 [facility] Start: 09-22-2024 Cardiac rehabilitati on - phase 2 [facility] Start: 09-22-2024 Notification of physician [facility] Start: 09-22-2024 Oxygen therapy [facility] Start: 09-22-2024 Patient discharge [facility] Start: 09-22-2024 Taking patient vital signs [facility] Start: 09-22-2024 Vascular disease ris k assessment [facility] Start: 09-22-2024 Vital signs measurements [facility] Start: 09-22-2024 End: 09-22-2024 [facility] Start: 09-18-2024 End: 09-18-2024 Patient encounter procedure 09/18/2024 3:00 PM EDT Office Visit [facility] [address] [place] [address] Kali Gibson DPM [address] [facility] [address] [place] [address] po 4/4 orif lt ankle trimalleolar fx.. * ok per douglas [facility] Comment on above: po 4/4 orif lt ankle trimalleolar fx.. * ok per douglas Start: 09-16-2024 Evaluation of diagno stic study results [facility] Start: 09-04-2024 End: 09-04-2024 Patient encounter procedure 09/04/2024 1:00 PM EDT Office Visit [facility] [address] [place] [address] Kali Gibson, SHANTEL [address] [place] [address] po 4/4 orif lt ankle trimalleolar fx...PER DOUGLAS [facility] Comment on above: po 4/4 orif lt ankle trimalleolar fx...PER DOUGLAS Start: 08-28-2024 End: 08-28-2024 Patient encounter procedure 08/28/2024 10:30 AM EDT Office Visit [facility] [address] [place] [address] Kali Gibson, SHANTEL [address] [place] [address] [place] [id number] po 4/4 orif lt ankle trimalleolar fx. ok'd by SC on 08/18/24 [facility] Comment on above: po 4/4 orif lt ankle trimalleolar fx. ok'd by SC on 08/18/24 Start: 08-21-2024 End: 08-21-2024 Admission to same day surgery center 08/21/2024 8:00 AM EDT - 08/21/2024 11:45 AM EDT [facility] [address] [place] [address] Kali Gibson, SHANTEL [address] [place] [address] [place] [id number] ORIF ANKLE TRIMALLEOLAR, WITH FIXATION POSTERIOR LIP, left [facility] Comment on above: ORIF ANKLE TRIMALLEO LAR, WITH FIXATION POSTERIOR LIP, left Start: 08-21-2024 End: 08-21-2024 Open tx trimalleolar ankle fx w/fixj pst lip ORIF ANKLE TRIMALLEOLAR, WITH FIXATION POSTERIOR LIP Closed trimalleolar fracture of left ankle, initial encounter 08/21/2024 8:00 AM EDT [facility] Start: 08-21-2024 Subsequent hospital visit by physician [facility] Comment on above: Closed trimalleolar fracture of left ankle, initial encounter [S82.372A] Start: 08-12-2024 End: 08-12-2024 Patient encounter procedure 08/12/2024 9:30 AM EDT Office Visit [facility] [address] [place] [address] Kali Gibson DPM [address] [address] left ankle fracture 2 weeks ago [facility] Comment on above: left ankle fracture 2 weeks ago Start: 08-11-2024 End: 08-11-2024 Patient encounter procedure 08/11/2024 9:00 AM EDT Office Visit Family Eliot Soto [address] [place] [address] Keanu Zarate V, DO [address] [place], [place] [id number] follow up Family Eliot Soto Comment on above: follow up Start: 07-28-2024 End: 07-28-2024 Patient encounter procedure 07/28/2024 9:00 AM EDT Office Visit Family Eliot Soto [address] [place] [address] Keanu Zarate V, DO [address] [place] [address] Closed fracture of distal end of left fibula, unspecified fracture morphology, initial encounter [S82.832A] Family Eliot Soto Comment on above: Closed fracture of d istal end of left fibula, unspecified fracture morphology, initial encounter [S82.832A] Start: 05-20-2024 Advance Directive Discussion Advance Directive Discussion [facility] Start: 04-20-2024 End: 04-20-2024 Patient encounter procedure 04/20/2024 10:00 AM EST Office Visit [facility] [address] [place] [phone] Giancarlo Charles MD [address] [place], [place] [phone] [facility] Start: 02-05-2024 End: 02-05-2024 Professional / ancillary services management 02/05/2024 1:00 PM EDT Ancillary Procedure [facility] [address] [place] [phone] [facility] Start: 01-19-2024 COVID-19 Vaccine ( season) COVID-19 Vaccine ( season) [facility] Start: 01-19-2024 COVID-19 Vaccine ( season) COVID-19 Vaccine ( season) [facility] Start: 01-19-2024 Influenza vaccination Influenza Vacc ine (#1) [facility] Start: 1997 Screening for malign ant neoplasm of colon [facility] Start: 10-10-1987 Lipid panel Lipid Screening [facility] Start: 1972 Hepatitis B Vaccines (1 of 3 - Risk Dialysis 4-dose series) Hepatitis B Vaccines (1 of 3 - Risk Dialysis 4-dose series) [facility] Start: 1970 Annual PCP Team [employer] Tender marcelino Disease Visit Annual PCP Team Chronic Disease Visit [facility] Start: 1970 Anxiety Screening Anxiety Screening [facility] Start: 1970 Depression Screening Depression Scre ing [facility] Start: 1970 Diabetes: Urine Albumin-Creatinine Ratio for Kidney Health Diabetes: Urine Albumin-Creatinine Ratio for Kidney Health [facility] Start: 1970 Hepatitis B surface antibody level LDL Cholesterol [facility] Start: 1970 Hepatitis C screening Hepatitis C Sc reening [facility] Start: 1964 Depression Screening Depression Scre ing [facility] Start: 1962 Diabetic foot examination [facility] Start: 1962 Glaucoma screening [facility] Start: 1962 Hepatitis B screening Urine Albumin:Creatinine Ratio [facility] Start: 1962 Preventive dental service Diabetes: Dental Exam [facility] Start: 1952 Lipid panel Lipid Panel [facility] Start: 1952 Screening for malign ant neoplasm of colon [facility] Application short le g splint calf foot APPLY LOWER LEG SPLINT Procedures Routine Post-operative state Trimalleolar fracture of ankle, closed, left, initial encounter Type 1 diabetes mellitus with diabetic polyneuropathy (HCC) CKD (chronic kidney disease) stage V requiring chronic dialysis (HCC) Ordered: 08/28/2024 [facility] Work Phone: Comment on above: Ordered: 08/28/2024 Bacteria identified in Wound by Culture BACTERIAL CULTURE AND GRAM STAIN, ABSCESS AND WOUND (AEROBIC CULTURE) Microbiology Routine Post-operative state Trimalleolar fracture of ankle, closed, left, initial encounter Type 1 diabetes mellitus with diabetic polyneuropathy (HCC) 11/13/2024 8:32 AM EDT [facility] Work Phone: Catheterization of l eft heart [facility] Open tx trimalleolar ankle fx w/fixj pst lip ORIF ANKLE TRIMALLEOLAR, WITH FIXATION POSTERIOR LIP Closed trimalleolar fracture of left ankle, initial encounter [place] [facility] Patient referral [facility] Work Phone: End: 09-04-2025 XR Ankle - left AP and Lateral and oblique XR ANKLE GENERAL 3V AP/LAT/OBL LEFT Radiology Routine Closed fracture of distal end of left fibula, unspecified fracture morphology, initial encounter 1 Occurrences starting 08/05/2024 until 09/04/2025 [facility] Work Phone: Comment on above: 1 Occurrences starti ng 08/05/2024 until 09/04/2025 XR Ankle - left AP a nd Lateral and oblique XR ANKLE GENERAL 3V AP/LAT/OBL LEFT Radiology Routine Closed fracture of distal end of left fibula, unspecified fracture morphology, initial encounter 08/10/2024 9:46 AM EDT [facility] Work Phone: Immunizations Immunization Date Immunization Notes Care Provider Carolann solares 01-29-2024 influenza virus vacc ine, unspecified formulation Kali MERCHANTM Work Phone: [facility] Payers Date Payer Category Payer Self-pay 2023 [employer] Blue [employer] BLUE CARD PPO OOS [id number] 2023 Blue Cross Blue Shie ld Managed Care - HMO ANTHEM BLUE CROSS [id number] 2023 Unknown ANTHEM BLUE CROS S ANTHEM BLUE CROSS [id number] 2023-Present [address] Commercial [id number] 2023 Unknown [id number] Unknown ANTHEM [id number] Unknown [id number] [id number]. 2.462 Unknown [id number]. 2.462 Unknown [id number] 2.16.840.1.853074.3.579. 2.462 Unknown [id number] 2.16.840.1.894231.3.579. 2.462 Unknown [id number] 2.16.840.1.808655.3.579. 2.462 Unknown [id number] 2.16.840.1.034660.3.579. 2.462 Unknown [id number] 2.16840.1.184790.3.579. 2.462 Unknown [id number] 2.16840.1.099315.3.579. 2.462 Unknown [id number] 2.840.1.816730.3.579. 2.462 Unknown [id number] 2.840.1.189813.3.579. 2.462 Unknown [id number] 2.840.1.879653.3.579. 2.462 Unknown [id number] 2.840.1.972447.3.579. 2.462 Unknown [id number] 2.840.1.202728.3.579. 2.462 Unknown [id number] 2.840.1.432212.3.579. 2.462 Unknown [id number] 2.840.1.528114.3.579. 2.462 Unknown [id number] 2.840.1.560144.3.579. 2.462 Unknown [id number] 2.840.1.053291.3.579. 2.462 Unknown [id number] 2.840.1.297603.3.579. 2.462 Unknown [id number] 2.16840.1.845141.3.579. 2.462 Unknown [id number] 2.840.1.078478.3.579. 2.462 Social History Date Type Detail Facility Tobacco smoking stat [facility] Unknown if ever smoked [facility] Work Phone: Start: 1950 Sex Assigned At Male [facility] Tobacco smoking stat us NHIS Tobacco smoking consumption unknown [facility] Start: 01-17-2024 End: 07-27-2024 History of Social function [facility] Start: 01-17-2024 End: 07-27-2024 Alcohol Use Disorder Identification Test - Consumption [AUDIT-C] [facility] How often to you hav e a drink containing alcohol? Never [facility] Start: 10-22-2022 How many standard drinks containing alcohol do you have on a typical day? Patient does not drink [facility] Start: 1950 Sex assigned at Not on file [facility] Start: 07-28-2024 End: 09-22-2024 Tobacco smoking status NHIS Never smoked tobacco [facility] Start: 07-28-2024 Tobacco use and exposure Smokeless tobacco non-user [facility] Start: 07-28-2024 End: 09-04-2024 Alcoholic beverage intake Current drinker of alcohol (finding) [facility] Start: 01-17-2024 End: 08-18-2024 Sex Male (finding) [facility] Start: 09-18-2024 End: 12-25-2024 Alcoholic beverage intake Lifetime non-drinker (finding) [facility] Medical Equipment Procedure Code Equipment Code Equipment Origin al Text Equipment Identifier Dates Lead Pcng Capsur efix Naida 52 - [id number] - [id number] Start: 01-19-2024 Lead Pace Cath D el 4.1f 69cm - [id number] - [id number] Start: 01-19-[address] Moran - [id number] - [id number] Start: 01-19-2024 3.5 Mm Headless Hexalob Screw [id number] Start: 08-21-2024 3.5mm Headless Hexalobe Screw [id number] Start: 08-21-2024 Ffn 0.4mm End Cap [id number] Start: 08-21-2024 Fibula Nail Sys 2 [id number] Start: 08-21-2024 Screw 3.5mm 50mm Bone Nonlocking Hexalobe Sterile Elbow - [id number] Start: 08-21-2024 Screw 3.5mm 55mm Bone Nonlocking Hexalobe Sterile Elbow - [id number] Start: 08-21-2024 Drug-eluting coronary artery stent, [id number] lymer-coated ()[id number] [id number] FDA Start: 09-22-2024 Drug-eluting coronary artery stent, [id number] lymer-coated ()[id number] [id number] FDA Start: 09-22-2024 Goals Date Patient Goal Desired Activity /State Functional Status Date Assessment Result Facility 09-23-2024 Functional status Ambulates [facility] Work Phone: Mental Status Date Assessment Result Facility 09-23-2024 Cognitive function Voice/Name [facility] Work Phone: Clinical Notes 01-17-2024 to 03-19-2025 Kali Gibson DPM - 12/25/2024 11:13 AM EDTKali Gibson DPM - 12/04/2024 3:11 PM EDTTelephone Encounter - Kali Gibson DPM - 11/16/2024 7:02 PM EDT Note Date & Type Note Facility 03-19-2025 Note HNO ID: [id number] Author: KALI GIBSON DPM Service: ? Author Type: Physician Type: Progress Notes Filed: 03/20/2025 11:18 Note Text: DOS: 08/21/24 Procedure: S/p ORIF left ankle fracture Noé Hughes is a 74-year-old male with DM and CKD presenting for follow-up of a wound on his left leg. A pigment pumper was used in this visit. ID number: [id number]. Noé reports decreased drainage from the wound and only occasional mild pain. He has been applying the prescribed ointment as directed, santyl. Denies any current nausea, vomiting, fever, chills, shortness of breath, chest pain or calf pain. PAST MEDICAL HISTORY Diagnosis Date Abnormal stress test Ankle fracture 07/2024 left CKD (chronic kidney disease), stage IV (HCC) Diabetes mellitus (HCC) Type 1 Diabetic polyneuropathy (HCC) Essential hypertension Hypercholesteremia Hyperparathyroidism (HCC) Hypotension Known medical problems peritoneal dialysis Known medical problems edema Known medical problems hyperlipidemia Pacemaker 01/2024 Summa placed for sick sinus syndrome Vitamin D deficiency Current Outpatient Medications Medication Sig collagenase (SANTYL) ointment Apply to affected area once daily. ulceration ammonium lactate (LAC-HYDRIN) 12 % cream Apply to affected area as needed for dry skin. mupirocin (BACTROBAN) 2 % ointment Apply to affected area once daily. atorvastatin (LIPITOR) 20 mg tablet Take 20 mg by mouth. TRIPHROCAPS 1 mg capsule Take 1 capsule by mouth once daily. calcitriol (ROCALTROL) 0.5 mcg capsule Take 0.5 mcg by mouth. docusate sodium (COLACE) 100 mg capsule Take 100 mg by mouth. felodipine ER (PLENDIL) 10 mg 24 hr tablet Take 10 mg by mouth. fenofibrate (LOFIBRA) 200 mg capsule Take 200 mg by mouth. ferrous sulfate 325 mg (65 mg iron) tablet Take 325 mg by mouth. gabapentin (NEURONTIN) 100 mg capsule Take 1 capsule by mouth. gentamicin 0.1% 0.1 % cream Apply to affected area. LANTUS SOLOSTAR U-100 INSULIN 100 unit/mL (3 mL) lactulose 10 gram/15 mL solution Take 20 g by mouth. metoprolol succinate ER (TOPROL XL) 50 mg 24 hr tablet Take 1 tablet by mouth once daily. pantoprazole DR (PROTONIX) 20 mg tablet Take 40 mg by mouth. sevelamer carbonate (RENVELA) 800 mg tablet Take 1,600 mg by mouth. No current facility-administered medications for this visit. ALLERGIES No Known Allergies Objective: Patient presents full WB in athletic shoes Pt visit completed with aid of bolivian interpretor. Problem focus examination to the left lower extremity: Incision site is well healed. Area of previous pin point opening is remains well healed. No erythema or purulent drainage noted. Mild scaling skin to the lateral ankle. Mild edema surrounding surgical site. No lymphadenopathy. No lymphangitis. No surrounding cellulitis. Ulceration noted to anterior aspect of the left leg which measures 0.8cmx 0.4cm x 0.1cm. Base appears mixed granular/fibrotic. No erythema, purulence, increased warmth or malodor noted. Minimal pain to palpation of the surgical site lateral ankle. No pain medially or anteriorly. Patient has no pain to palpation of calf. The calf is soft, supple and nontender without evidence of DVT. Negative Joyce's test. Satisfactory alignment is noted. Pedal pulses are palpable. Capillary refill time is less than three seconds to all digits. Protective sensation is absent to all pedal sites. Assessment: Left leg ulcer S/p ORIF left ankle fractures DM with neuropathy CKD on dialysis Plan: The patient was educated on clinical examination findings, postoperative prognosis and protocol. All questions were answered to patient's apparent satisfaction. Chronic left lower leg ulcer is improving, now measuring 8 mm x 4 mm (previously 1 cm x 0.9 cm); no signs of infection. Healing is slower due to underlying diabetes and CKD V on dialysis, but progress is satisfactory. - Continue applying Santyl ointment once daily and cover with a bandage. - Educated patient on signs of infection (odor, purulent drainage, erythema, swelling, increased pain) and instructed to call immediately if any develop. - Dressing applied in clinic today. - Follow-up in 2-3 weeks to ensure complete healing. Kali Gibson DPM [facility] 03-19-2025 Note HNO ID: [id number] Author: ALEXANDR RODARTE Tech Service: ? Author Type: Solar Sales Representative Type: Progress Notes Filed: 03/20/2025 11:18 Note Text: REVIEW OF SYSTEMS: GENERAL: Well developed, well nourished. No acute distress PAIN: Negative for pain, history of chronic pain or current treatment for chronic pain conditions CARDIOVASCULAR: HTN MSK: Negative for joint swelling SKIN: Itching has intermittent b/l arm itching NEURO: Negative for seizure, trauma, numbness/tingling of extremities. ENDOCRINE: Positive for diabetic associated symptoms HEMATOLOGY: Negative for excessive bleeding, clots, bleeding disorders. [facility] 02-26-2025 Note HNO ID: [id number] Author: KALI GIBSON DPM Service: ? Author Type: Physician Type: Progress Notes Filed: 02/26/2025 19:24 Note Text: DOS: 08/21/24 Procedure: S/p ORIF left ankle fracture Noé Hughes is a 74-year-old male with a history of diabetes, CKD on dialysis, and neuropathy, presenting for new complaint of left leg wound. A pigment pumper was used for this visit (ID: [id number]). Noé reports a leg wound sustained 2 weeks ago. Ran into shopping cart. He has been applying a cream prescribed by his doctor. He denies nausea, vomiting, fever, or chills. He reports his blood sugars have been stable. He also reports developing skin lesions on his forehead and near a prior surgical site after taking a medication that advised avoiding sun exposure. Denies any current nausea, vomiting, fever, chills, shortness of breath, chest pain or calf pain. PAST MEDICAL HISTORY Diagnosis Date Abnormal stress test Ankle fracture 07/2024 left CKD (chronic kidney disease), stage IV (HCC) Diabetes mellitus (HCC) Type 1 Diabetic polyneuropathy (HCC) Essential hypertension Hypercholesteremia Hyperparathyroidism (HCC) Hypotension Known medical problems peritoneal dialysis Known medical problems edema Known medical problems hyperlipidemia Pacemaker 01/2024 Summa placed for sick sinus syndrome Vitamin D deficiency Current Outpatient Medications Medication Sig mupirocin (BACTROBAN) 2 % ointment Apply to affected area once daily. atorvastatin (LIPITOR) 20 mg tablet Take 20 mg by mouth. TRIPHROCAPS 1 mg capsule Take 1 capsule by mouth once daily. calcitriol (ROCALTROL) 0.5 mcg capsule Take 0.5 mcg by mouth. docusate sodium (COLACE) 100 mg capsule Take 100 mg by mouth. felodipine ER (PLENDIL) 10 mg 24 hr tablet Take 10 mg by mouth. fenofibrate (LOFIBRA) 200 mg capsule Take 200 mg by mouth. ferrous sulfate 325 mg (65 mg iron) tablet Take 325 mg by mouth. gabapentin (NEURONTIN) 100 mg capsule Take 1 capsule by mouth. gentamicin 0.1% 0.1 % cream Apply to affected area. LANTUS SOLOSTAR U-100 INSULIN 100 unit/mL (3 mL) lactulose 10 gram/15 mL solution Take 20 g by mouth. metoprolol succinate ER (TOPROL XL) 50 mg 24 hr tablet Take 1 tablet by mouth once daily. pantoprazole DR (PROTONIX) 20 mg tablet Take 40 mg by mouth. sevelamer carbonate (RENVELA) 800 mg tablet Take 1,600 mg by mouth. No current facility-administered medications for this visit. ALLERGIES No Known Allergies Objective: Patient presents full WB in athletic shoes Pt visit completed with aid of bolivian interpretor. Problem focus examination to the left lower extremity: Incision site is well healed. Area of previous pin point opening is remains well healed. No erythema or purulent drainage noted. Mild scaling skin to the lateral ankle. Mild edema surrounding surgical site. No lymphadenopathy. No lymphangitis. No surrounding cellulitis. Ulceration noted to anterior aspect of the left leg which measures 1.0cm x 0.9cm x 0.1cm. Base appears fibrotic. No erythema, purulence, increased warmth or malodor noted. Minimal pain to palpation of the surgical site lateral ankle. No pain medially or anteriorly. Patient has no pain to palpation of calf. The calf is soft, supple and nontender without evidence of DVT. Negative Joyce's test. Satisfactory alignment is noted. Pedal pulses are palpable. Capillary refill time is less than three seconds to all digits. Protective sensation is absent to all pedal sites. Assessment: S/p ORIF left ankle fractures DM with neuropathy CKD on dialysis Plan: The patient was educated on clinical examination findings, postoperative prognosis and protocol. All questions were answered to patient's apparent satisfaction. Ulcer on the left lower leg, measuring 1 cm x 0.9 cm x 0.1 cm, with yellow tissue at the base; no signs of infection. - Debridement performed to the left leg ulceration using 15 blade including subcutaneous tissue with removal of fibrotic tissue. Measurements as noted above. Antibiotic ointment and DSD applied today. - Start Santyl ointment (enzymatic debrider); apply a layer approximately the thickness of a nickel to the wound bed and cover with a bandage. - Advised patient to notify if Santyl is not covered by insurance due to potential high cost; will prescribe an alternative if needed. - Apply moisturizing cream to surrounding skin to address dryness. - Educated on signs of infection (redness, swelling, foul odor, pus drainage) and instructed to call immediately if these occur. - Follow-up in 2-3 weeks to reassess wound healing. Kali Gibson DPM [facility] 12-25-2024 Note HNO ID: [id number] Author: KALI GIBSON DPM Service: ? Author Type: Physician Type: Progress Notes Filed: 12/27/2024 20:58 Note Text: DOS: 4/4/25 POD: 18 weeks POV: 7 Procedure: S/p ORIF left ankle fracture Noé Hughes is a 74-year-old male with a history of diabetes, CKD on dialysis, and neuropathy, presenting for follow-up left ankle. Patient states that has been doing well. States that has not had any drainage from the area any longer. Minimal discomfort to the ankle. No new concerns. Denies any current nausea, vomiting, fever, chills, shortness of breath, chest pain or calf pain. PAST MEDICAL HISTORY Diagnosis Date Abnormal stress test Ankle fracture 07/2024 left CKD (chronic kidney disease), stage IV (HCC) Diabetes mellitus (HCC) Type 1 Diabetic polyneuropathy (HCC) Essential hypertension Hypercholesteremia Hyperparathyroidism (HCC) Hypotension Known medical problems peritoneal dialysis Known medical problems edema Known medical problems hyperlipidemia Pacemaker 01/2024 Summa placed for sick sinus syndrome Vitamin D deficiency Current Outpatient Medications Medication Sig sulfamethoxazole-trimethoprim (BACTRIM DS) 800-160 mg per tablet Take 1 tablet by mouth once daily for 21 days. mupirocin (BACTROBAN) 2 % ointment Apply to affected area once daily. atorvastatin (LIPITOR) 20 mg tablet Take 20 mg by mouth. TRIPHROCAPS 1 mg capsule Take 1 capsule by mouth once daily. calcitriol (ROCALTROL) 0.5 mcg capsule Take 0.5 mcg by mouth. docusate sodium (COLACE) 100 mg capsule Take 100 mg by mouth. felodipine ER (PLENDIL) 10 mg 24 hr tablet Take 10 mg by mouth. fenofibrate (LOFIBRA) 200 mg capsule Take 200 mg by mouth. ferrous sulfate 325 mg (65 mg iron) tablet Take 325 mg by mouth. gabapentin (NEURONTIN) 100 mg capsule Take 1 capsule by mouth. gentamicin 0.1% 0.1 % cream Apply to affected area. LANTUS SOLOSTAR U-100 INSULIN 100 unit/mL (3 mL) lactulose 10 gram/15 mL solution Take 20 g by mouth. metoprolol succinate ER (TOPROL XL) 50 mg 24 hr tablet Take 1 tablet by mouth once daily. pantoprazole DR (PROTONIX) 20 mg tablet Take 40 mg by mouth. sevelamer carbonate (RENVELA) 800 mg tablet Take 1,600 mg by mouth. No current facility-administered medications for this visit. ALLERGIES No Known Allergies Objective: Patient presents full WB in athletic shoes Pt visit completed with aid of bolivian interpretor. Problem focus examination to the left lower extremity: Incision site is well healed. Area of previous pin point opening is now healed. No erythema or purulent drainage noted. Mild edema surrounding surgical site. No lymphadenopathy. No lymphangitis. No surrounding cellulitis. Minimal pain to palpation of the surgical site lateral ankle. No pain medially or anteriorly. Patient has no pain to palpation of calf. The calf is soft, supple and nontender without evidence of DVT. Negative Joyce's test. Satisfactory alignment is noted. Pedal pulses are palpable. Capillary refill time is less than three seconds to all digits. Protective sensation is absent to all pedal sites. Radiographs: 3 views left ankle were obtained and evaluated. Radiographic evaluation: Evidence of previous ORIF left ankle fracture with increased trabeculation noted across the fracture. Alignment maintained. Hardware intact without breakage. Mild lucency around syndesmotic screws consistent with expected postoperative changes which appears unchanged from previous xrays. No lucency noted around remaining screws. Ankle mortise WNL. Fibula out to length. Vascular calcifications noted. Cultures: MRSA Assessment: S/p ORIF left ankle fractures DM with neuropathy CKD on dialysis Plan: The patient was educated on clinical examination findings, postoperative prognosis and protocol. All questions were answered to patient's apparent satisfaction. Patient doing well. Small pinpoint incision is now closed. No openings noted. Patient doing very well. Low impact activity as tolerated. Monitoring for signs/symptoms of infection. Follow up in 2 months or sooner with any problems or concerns. Kali Gibson DPM [facility] 12-25-2024 History of Presen t illness Narrative DOS: 08/21/24 POD: 18 weeks POV: 7 Procedure: S/p ORIF left ankle fracture Noé Hughes is a 74-year-old male with a history of diabetes, CKD on dialysis, and neuropathy, presenting for follow-up left ankle. Patient states that has been doing well. States that has not had any drainage from the area any longer. Minimal discomfort to the ankle. No new concerns. Denies any current nausea, vomiting, fever, chills, shortness of breath, chest pain or calf pain. PAST MEDICAL HISTORY Diagnosis Date Abnormal stress test Ankle fracture 07/2024 left CKD (chronic kidney disease), stage IV (HCC) Diabetes mellitus (HCC) Type 1 Diabetic polyneuropathy (HCC) Essential hypertension Hypercholesteremia Hyperparathyroidism (HCC) Hypotension Known medical problems peritoneal dialysis Known medical problems edema Known medical problems hyperlipidemia Pacemaker 01/2024 Summa placed for sick sinus syndrome Vitamin D deficiency Current Outpatient Medications Medication Sig sulfamethoxazole-trimethoprim (BACTRIM DS) 800-160 mg per tablet Take 1 tablet by mouth once daily for 21 days. mupirocin (BACTROBAN) 2 % ointment Apply to affected area once daily. atorvastatin (LIPITOR) 20 mg tablet Take 20 mg by mouth. TRIPHROCAPS 1 mg capsule Take 1 capsule by mouth once daily. calcitriol (ROCALTROL) 0.5 mcg capsule Take 0.5 mcg by mouth. docusate sodium (COLACE) 100 mg capsule Take 100 mg by mouth. felodipine ER (PLENDIL) 10 mg 24 hr tablet Take 10 mg by mouth. fenofibrate (LOFIBRA) 200 mg capsule Take 200 mg by mouth. ferrous sulfate 325 mg (65 mg iron) tablet Take 325 mg by mouth. gabapentin (NEURONTIN) 100 mg capsule Take 1 capsule by mouth. gentamicin 0.1% 0.1 % cream Apply to affected area. LANTUS SOLOSTAR U-100 INSULIN 100 unit/mL (3 mL) lactulose 10 gram/15 mL solution Take 20 g by mouth. metoprolol succinate ER (TOPROL XL) 50 mg 24 hr tablet Take 1 tablet by mouth once daily. pantoprazole DR (PROTONIX) 20 mg tablet Take 40 mg by mouth. sevelamer carbonate (RENVELA) 800 mg tablet Take 1,600 mg by mouth. No current facility-administered medications for this visit. ALLERGIES No Known Allergies Objective: Patient presents full WB in athletic shoes Pt visit completed with aid of bolivian interpretor. Problem focus examination to the left lower extremity: Incision site is well healed. Area of previous pin point opening is now healed. No erythema or purulent drainage noted. Mild edema surrounding surgical site. No lymphadenopathy. No lymphangitis. No surrounding cellulitis. Minimal pain to palpation of the surgical site lateral ankle. No pain medially or anteriorly. Patient has no pain to palpation of calf. The calf is soft, supple and nontender without evidence of DVT. Negative Joyce's test. Satisfactory alignment is noted. Pedal pulses are palpable. Capillary refill time is less than three seconds to all digits. Protective sensation is absent to all pedal sites. Radiographs: 3 views left ankle were obtained and evaluated. Radiographic evaluation: Evidence of previous ORIF left ankle fracture with increased trabeculation noted across the fracture. Alignment maintained. Hardware intact without breakage. Mild lucency around syndesmotic screws consistent with expected postoperative changes which appears unchanged from previous xrays. No lucency noted around remaining screws. Ankle mortise WNL. Fibula out to length. Vascular calcifications noted. Cultures: MRSA Assessment: S/p ORIF left ankle fractures DM with neuropathy CKD on dialysis Plan: The patient was educated on clinical examination findings, postoperative prognosis and protocol. All questions were answered to patient's apparent satisfaction. Patient doing well. Small pinpoint incision is now closed. No openings noted. Patient doing very well. Low impact activity as tolerated. Monitoring for signs/symptoms of infection. Follow up in 2 months or sooner with any problems or concerns. Kali Gibson DPM documented in this encounter [facility] 12-24-2024 Note Radiographs: 3 views left ankle were obtained and evaluated. Radiographic evaluation: Evidence of previous ORIF left ankle fracture with increased trabeculation noted across the fracture. Alignment maintained. Hardware intact without breakage. Mild lucency around syndesmotic screws consistent with expected postoperative changes which appears unchanged from previous xrays. No lucency noted around remaining screws. Ankle mortise WNL. Fibula out to length. Vascular calcifications noted. [facility] 12-04-2024 Note HNO ID: [id number] Author: KALI GIBSON DPM Service: ? Author Type: Physician Type: Progress Notes Filed: 12/05/2024 00:00 Note Text: DOS: 08/21/24 POD: 15 weeks POV: 6 Procedure: S/p ORIF left ankle fracture Noé Hughes is a 74-year-old male with a history of diabetes, CKD on dialysis, and neuropathy, presenting for follow-up on a toe injury and persistent wound drainage. Noé reports a toe injury sustained approximately 1 month ago when attempting to open a door, resulting in the toenail being ripped off. He denies applying any topical treatments to the toe since the injury. Patient states that believes his wound is healed. He completed a course of antibiotics prescribed and denies any current pain at the wound site. Noé also notes bilateral pedal edema. He denies any changes in his dialysis regimen and reports that the same amount of fluid is being removed during sessions. He has been walking for 40 minutes on 4 days this week without issue. Denies any current nausea, vomiting, fever, chills, shortness of breath, chest pain or calf pain. PAST MEDICAL HISTORY Diagnosis Date Abnormal stress test Ankle fracture 07/2024 left CKD (chronic kidney disease), stage IV (HCC) Diabetes mellitus (HCC) Type 1 Diabetic polyneuropathy (HCC) Essential hypertension Hypercholesteremia Hyperparathyroidism (HCC) Hypotension Known medical problems peritoneal dialysis Known medical problems edema Known medical problems hyperlipidemia Pacemaker 01/2024 Summa placed for sick sinus syndrome Vitamin D deficiency Current Outpatient Medications Medication Sig atorvastatin (LIPITOR) 20 mg tablet Take 20 mg by mouth. TRIPHROCAPS 1 mg capsule Take 1 capsule by mouth once daily. calcitriol (ROCALTROL) 0.5 mcg capsule Take 0.5 mcg by mouth. docusate sodium (COLACE) 100 mg capsule Take 100 mg by mouth. felodipine ER (PLENDIL) 10 mg 24 hr tablet Take 10 mg by mouth. fenofibrate (LOFIBRA) 200 mg capsule Take 200 mg by mouth. ferrous sulfate 325 mg (65 mg iron) tablet Take 325 mg by mouth. gabapentin (NEURONTIN) 100 mg capsule Take 1 capsule by mouth. gentamicin 0.1% 0.1 % cream Apply to affected area. LANTUS SOLOSTAR U-100 INSULIN 100 unit/mL (3 mL) lactulose 10 gram/15 mL solution Take 20 g by mouth. metoprolol succinate ER (TOPROL XL) 50 mg 24 hr tablet Take 1 tablet by mouth once daily. pantoprazole DR (PROTONIX) 20 mg tablet Take 40 mg by mouth. sevelamer carbonate (RENVELA) 800 mg tablet Take 1,600 mg by mouth. No current facility-administered medications for this visit. ALLERGIES No Known Allergies Objective: Patient presents full WB in slide sandals Pt visit completed with aid of bolivian interpretor. Problem focus examination to the left lower extremity: Incision site is well healed. Pin point opening noted to the dorsal distal ankle incision with scant serous drainage; no erythema or purulent drainage noted. Mild edema surrounding surgical site. No lymphadenopathy. No lymphangitis. No surrounding cellulitis. Minimal pain to palpation of the surgical site lateral ankle. No pain medially or anteriorly. Patient has no pain to palpation of calf. The calf is soft, supple and nontender without evidence of DVT. Negative Joyce's test. Satisfactory alignment is noted. Pedal pulses are palpable. Capillary refill time is less than three seconds to all digits. Protective sensation is absent to all pedal sites. Radiographs: 3 views left ankle were obtained and evaluated. Radiographic evaluation: Evidence of previous ORIF left ankle fracture with increased trabeculation noted across the fracture. Alignment maintained. Hardware intact without breakage. Mild lucency around syndesmotic screws consistent with expected postoperative changes. No lucency noted around remaining screws. Ankle mortise WNL. Fibula out to length. Vascular calcifications noted. Cultures: MRSA Assessment: S/p ORIF left ankle fractures DM with neuropathy CKD on dialysis Plan: The patient was educated on clinical examination findings, postoperative prognosis and protocol. All questions were answered to patient's apparent satisfaction. Post-operative swelling is consistent with expectations. X-rays reveal subtle lucency around the syndesmotic screws, indicating expected movement due to ambulation. No signs of acute infection; no increased warmth or erythema. Minimal serous drainage observed from a small pinhole wound, previously cultured MRSA. - Antibiotic therapy for an extended duration due to high risk of infection. Rx Bactrim - Apply mupirocin ointment and a Band-Aid over the pinhole wound; prescription sent to pharmacy. Patient has significant comorbidities including well-controlled Type 1 diabetes mellitus and CKD stage V requiring dialysis. These conditions increase the risk of infection and complicate wound healing. - Monitor for signs of (more content not included)... [facility] 12-04-2024 History of Presen t illness Narrative DOS: 08/21/24 POD: 15 weeks POV: 6 Procedure: S/p ORIF left ankle fracture Noé Hughes is a 74-year-old male with a history of diabetes, CKD on dialysis, and neuropathy, presenting for follow-up on a toe injury and persistent wound drainage. Noé reports a toe injury sustained approximately 1 month ago when attempting to open a door, resulting in the toenail being ripped off. He denies applying any topical treatments to the toe since the injury. Patient states that believes his wound is healed. He completed a course of antibiotics prescribed and denies any current pain at the wound site. Noé also notes bilateral pedal edema. He denies any changes in his dialysis regimen and reports that the same amount of fluid is being removed during sessions. He has been walking for 40 minutes on 4 days this week without issue. Denies any current nausea, vomiting, fever, chills, shortness of breath, chest pain or calf pain. PAST MEDICAL HISTORY Diagnosis Date Abnormal stress test Ankle fracture 07/2024 left CKD (chronic kidney disease), stage IV (HCC) Diabetes mellitus (HCC) Type 1 Diabetic polyneuropathy (HCC) Essential hypertension Hypercholesteremia Hyperparathyroidism (HCC) Hypotension Known medical problems peritoneal dialysis Known medical problems edema Known medical problems hyperlipidemia Pacemaker 01/2024 Summa placed for sick sinus syndrome Vitamin D deficiency Current Outpatient Medications Medication Sig atorvastatin (LIPITOR) 20 mg tablet Take 20 mg by mouth. TRIPHROCAPS 1 mg capsule Take 1 capsule by mouth once daily. calcitriol (ROCALTROL) 0.5 mcg capsule Take 0.5 mcg by mouth. docusate sodium (COLACE) 100 mg capsule Take 100 mg by mouth. felodipine ER (PLENDIL) 10 mg 24 hr tablet Take 10 mg by mouth. fenofibrate (LOFIBRA) 200 mg capsule Take 200 mg by mouth. ferrous sulfate 325 mg (65 mg iron) tablet Take 325 mg by mouth. gabapentin (NEURONTIN) 100 mg capsule Take 1 capsule by mouth. gentamicin 0.1% 0.1 % cream Apply to affected area. LANTUS SOLOSTAR U-100 INSULIN 100 unit/mL (3 mL) lactulose 10 gram/15 mL solution Take 20 g by mouth. metoprolol succinate ER (TOPROL XL) 50 mg 24 hr tablet Take 1 tablet by mouth once daily. pantoprazole DR (PROTONIX) 20 mg tablet Take 40 mg by mouth. sevelamer carbonate (RENVELA) 800 mg tablet Take 1,600 mg by mouth. No current facility-administered medications for this visit. ALLERGIES No Known Allergies Objective: Patient presents full WB in slide sandals Pt visit completed with aid of bolivian interpretor. Problem focus examination to the left lower extremity: Incision site is well healed. Pin point opening noted to the dorsal distal ankle incision with scant serous drainage; no erythema or purulent drainage noted. Mild edema surrounding surgical site. No lymphadenopathy. No lymphangitis. No surrounding cellulitis. Minimal pain to palpation of the surgical site lateral ankle. No pain medially or anteriorly. Patient has no pain to palpation of calf. The calf is soft, supple and nontender without evidence of DVT. Negative Joyce's test. Satisfactory alignment is noted. Pedal pulses are palpable. Capillary refill time is less than three seconds to all digits. Protective sensation is absent to all pedal sites. Radiographs: 3 views left ankle were obtained and evaluated. Radiographic evaluation: Evidence of previous ORIF left ankle fracture with increased trabeculation noted across the fracture. Alignment maintained. Hardware intact without breakage. Mild lucency around syndesmotic screws consistent with expected postoperative changes. No lucency noted around remaining screws. Ankle mortise WNL. Fibula out to length. Vascular calcifications noted. Cultures: MRSA Assessment: S/p ORIF left ankle fractures DM with neuropathy CKD on dialysis Plan: The patient was educated on clinical examination findings, postoperative prognosis and protocol. All questions were answered to patient's apparent satisfaction. Post-operative swelling is consistent with expectations. X-rays reveal subtle lucency around the syndesmotic screws, indicating expected movement due to ambulation. No signs of acute infection; no increased warmth or erythema. Minimal serous drainage observed from a small pinhole wound, previously cultured MRSA. - Antibiotic therapy for an extended duration due to high risk of infection. Rx Bactrim - Apply mupirocin ointment and a Band-Aid over the pinhole wound; prescription sent to pharmacy. Patient has significant comorbidities including well-controlled Type 1 diabetes mellitus and CKD stage V requiring dialysis. These conditions increase the risk of infection and complicate wound healing. - Monitor for signs of infection closely due to increased risk. - Maintain current dialysis regimen; no changes reported. - Scheduled follow-up appointment in 2-3 weeks to reassess wound healing and overall progress. - Instructed patient to report any increase in redness, pain, nausea, vomiting, fever, or chills immediately, as these may indicate infection. Kali Gibson DPM documented in this encounter [facility] 12-04-2024 Note Radiographs: 3 views left ankle were obtained and evaluated. Radiographic evaluation: Evidence of previous ORIF left ankle fracture with increased trabeculation noted across the fracture. Alignment maintained. Hardware intact without breakage. Mild lucency around syndesmotic screws consistent with expected postoperative changes. No lucency noted around remaining screws. Ankle mortise WNL. Fibula out to length. Vascular calcifications noted. [facility] 11-16-2024 Telephone encounter Note Please call patient and let him know that his cultures was positive for MRSA. I had placed him on doxycycline at his previous visit but this is only intermediate sensitivity so I will be sending a different antibiotic to the pharmacy for him. I have sent over bactrim which he will take once a day. He can discontinue the doxycycline. Kali Gibson DPM [facility] 11-16-2024 Miscellaneous Notes Please call patient and let him know that his cultures was positive for MRSA. I had placed him on doxycycline at his previous visit but this is only intermediate sensitivity so I will be sending a different antibiotic to the pharmacy for him. I have sent over bactrim which he will take once a day. He can discontinue the doxycycline. Kali Gibson DPM documented in this encounter [facility] 11-13-2024 Note Radiographs: 3 views left ankle were obtained and evaluated. Radiographic evaluation: Evidence of previous ORIF left ankle fracture with increased trabeculation noted across the fracture. Alignment maintained. Hardware intact without breakage or loosening noted. Ankle mortise WNL. Fibula out to length. Vascular calcifications noted. [facility] 11-13-2024 Note HNO ID: [id number] Author: KALI GIBSON DPM Service: ? Author Type: Physician Type: Progress Notes Filed: 11/13/2024 14:43 Note Text: DOS: 08/21/24 POD: 12 weeks POV: 5 Procedure: S/p ORIF left ankle fracture Noé has been ambulating in a boot for a right ankle and reports being able to ambulate well with it. He notes mild pain on the lateral aspect of the ankle. Denies any current nausea, vomiting, fever, chills, shortness of breath, chest pain or calf pain. PAST MEDICAL HISTORY Diagnosis Date Abnormal stress test Ankle fracture 07/2024 left CKD (chronic kidney disease), stage IV (HCC) Diabetes mellitus (HCC) Type 1 Diabetic polyneuropathy (HCC) Essential hypertension Hypercholesteremia Hyperparathyroidism (HCC) Hypotension Known medical problems peritoneal dialysis Known medical problems edema Known medical problems hyperlipidemia Pacemaker 01/2024 Summa placed for sick sinus syndrome Vitamin D deficiency Current Outpatient Medications Medication Sig atorvastatin (LIPITOR) 20 mg tablet Take 20 mg by mouth. TRIPHROCAPS 1 mg capsule Take 1 capsule by mouth once daily. calcitriol (ROCALTROL) 0.5 mcg capsule Take 0.5 mcg by mouth. docusate sodium (COLACE) 100 mg capsule Take 100 mg by mouth. felodipine ER (PLENDIL) 10 mg 24 hr tablet Take 10 mg by mouth. fenofibrate (LOFIBRA) 200 mg capsule Take 200 mg by mouth. ferrous sulfate 325 mg (65 mg iron) tablet Take 325 mg by mouth. gabapentin (NEURONTIN) 100 mg capsule Take 1 capsule by mouth. gentamicin 0.1% 0.1 % cream Apply to affected area. LANTUS SOLOSTAR U-100 INSULIN 100 unit/mL (3 mL) lactulose 10 gram/15 mL solution Take 20 g by mouth. metoprolol succinate ER (TOPROL XL) 50 mg 24 hr tablet Take 1 tablet by mouth once daily. pantoprazole DR (PROTONIX) 20 mg tablet Take 40 mg by mouth. sevelamer carbonate (RENVELA) 800 mg tablet Take 1,600 mg by mouth. No current facility-administered medications for this visit. ALLERGIES No Known Allergies Objective: Patient presents nonweightbearing to left leg. Bandaid on the 2nd toe left foot. Pt visit completed with aid of bolivian interpretor. Problem focus examination to the left lower extremity: Incision site is well healed. Pin point opening noted to the dorsal ankle incision with scant serous drainage; no erythema or purulent drainage noted. Mild edema surrounding surgical site. No lymphadenopathy. No lymphangitis. No surrounding cellulitis. Minimal pain to palpation of the surgical site lateral ankle. No pain medially or anteriorly. Patient has no pain to palpation of calf. The calf is soft, supple and nontender without evidence of DVT. Negative Joyce's test. Satisfactory alignment is noted. Pedal pulses are palpable. Capillary refill time is less than three seconds to all digits. Protective sensation is absent to all pedal sites. Radiographs: 3 views left ankle were obtained and evaluated. Radiographic evaluation: Evidence of previous ORIF left ankle fracture with increased trabeculation noted across the fracture. Alignment maintained. Hardware intact without breakage or loosening noted. Ankle mortise WNL. Fibula out to length. Vascular calcifications noted. Assessment: Satisfactory post-operative progress Plan: The patient was educated on clinical examination findings, postoperative prognosis and protocol. All questions were answered to patient's apparent satisfaction. Post-operative status following trimalleolar fracture repair. Minimal serous drainage observed from a small pinpoint area, likely due to boot friction. No significant erythema or signs of infection noted. Recent X-rays demonstrate satisfactory healing progress. - Obtained culture from the drainage site; results expected in 3-5 days. Will contact patient if any concerning findings are identified. - Initiated oral antibiotic therapy; prescription doxycycline sent to patient's pharmacy. - Applied antibiotic ointment and a Band-Aid to the drainage site; instructed patient to continue this regimen. - Adjusted boot to reduce pressure on the affected area. - Provided tubigrip for additional compression. - Advised gradual transition out of the boot, starting with wearing a normal shoe in the morning and reverting to the boot if fatigue occurs; expected transition period is approximately one week. - Scheduled follow-up appointment in 2-3 weeks to monitor healing progress. - Instructed patient to report any increase in redness, pain, nausea, vomiting, fever, or chills immediately, as these may indicate infection. Kali Gibson DPM [facility] 11-13-2024 History of Presen t illness Narrative DOS: 08/21/24 POD: 12 weeks POV: 5 Procedure: S/p ORIF left ankle fracture Noé has been ambulating in a boot for a right ankle and reports being able to ambulate well with it. He notes mild pain on the lateral aspect of the ankle. Denies any current nausea, vomiting, fever, chills, shortness of breath, chest pain or calf pain. PAST MEDICAL HISTORY Diagnosis Date Abnormal stress test Ankle fracture 07/2024 left CKD (chronic kidney disease), stage IV (HCC) Diabetes mellitus (HCC) Type 1 Diabetic polyneuropathy (HCC) Essential hypertension Hypercholesteremia Hyperparathyroidism (HCC) Hypotension Known medical problems peritoneal dialysis Known medical problems edema Known medical problems hyperlipidemia Pacemaker 01/2024 Summa placed for sick sinus syndrome Vitamin D deficiency Current Outpatient Medications Medication Sig atorvastatin (LIPITOR) 20 mg tablet Take 20 mg by mouth. TRIPHROCAPS 1 mg capsule Take 1 capsule by mouth once daily. calcitriol (ROCALTROL) 0.5 mcg capsule Take 0.5 mcg by mouth. docusate sodium (COLACE) 100 mg capsule Take 100 mg by mouth. felodipine ER (PLENDIL) 10 mg 24 hr tablet Take 10 mg by mouth. fenofibrate (LOFIBRA) 200 mg capsule Take 200 mg by mouth. ferrous sulfate 325 mg (65 mg iron) tablet Take 325 mg by mouth. gabapentin (NEURONTIN) 100 mg capsule Take 1 capsule by mouth. gentamicin 0.1% 0.1 % cream Apply to affected area. LANTUS SOLOSTAR U-100 INSULIN 100 unit/mL (3 mL) lactulose 10 gram/15 mL solution Take 20 g by mouth. metoprolol succinate ER (TOPROL XL) 50 mg 24 hr tablet Take 1 tablet by mouth once daily. pantoprazole DR (PROTONIX) 20 mg tablet Take 40 mg by mouth. sevelamer carbonate (RENVELA) 800 mg tablet Take 1,600 mg by mouth. No current facility-administered medications for this visit. ALLERGIES No Known Allergies Objective: Patient presents nonweightbearing to left leg. Bandaid on the 2nd toe left foot. Pt visit completed with aid of bolivian interpretor. Problem focus examination to the left lower extremity: Incision site is well healed. Pin point opening noted to the dorsal ankle incision with scant serous drainage; no erythema or purulent drainage noted. Mild edema surrounding surgical site. No lymphadenopathy. No lymphangitis. No surrounding cellulitis. Minimal pain to palpation of the surgical site lateral ankle. No pain medially or anteriorly. Patient has no pain to palpation of calf. The calf is soft, supple and nontender without evidence of DVT. Negative Joyce's test. Satisfactory alignment is noted. Pedal pulses are palpable. Capillary refill time is less than three seconds to all digits. Protective sensation is absent to all pedal sites. Radiographs: 3 views left ankle were obtained and evaluated. Radiographic evaluation: Evidence of previous ORIF left ankle fracture with increased trabeculation noted across the fracture. Alignment maintained. Hardware intact without breakage or loosening noted. Ankle mortise WNL. Fibula out to length. Vascular calcifications noted. Assessment: Satisfactory post-operative progress Plan: The patient was educated on clinical examination findings, postoperative prognosis and protocol. All questions were answered to patient's apparent satisfaction. Post-operative status following trimalleolar fracture repair. Minimal serous drainage observed from a small pinpoint area, likely due to boot friction. No significant erythema or signs of infection noted. Recent X-rays demonstrate satisfactory healing progress. - Obtained culture from the drainage site; results expected in 3-5 days. Will contact patient if any concerning findings are identified. - Initiated oral antibiotic therapy; prescription doxycycline sent to patient's pharmacy. - Applied antibiotic ointment and a Band-Aid to the drainage site; instructed patient to continue this regimen. - Adjusted boot to reduce pressure on the affected area. - Provided tubigrip for additional compression. - Advised gradual transition out of the boot, starting with wearing a normal shoe in the morning and reverting to the boot if fatigue occurs; expected transition period is approximately one week. - Scheduled follow-up appointment in 2-3 weeks to monitor healing progress. - Instructed patient to report any increase in redness, pain, nausea, vomiting, fever, or chills immediately, as these may indicate infection. Kali Gibson DPM documented in this encounter [facility] 10-13-2024 Note HNO ID: [id number] Author: KALI GIBSON DPM Service: ? Author Type: Physician Type: Progress Notes Filed: 10/13/2024 16:05 Note Text: DOS: 08/21/24 POD: 7.5 weeks POV: 4 Procedure: S/p ORIF left ankle fracture This 73 year old male presents for a post op visit. Patient states they are doing well. Pain is well controlled. Has been partial weightbearing to the left lower extremity in boot with assistance of crutches. Denies any current nausea, vomiting, fever, chills, shortness of breath, chest pain or calf pain. States that developed a blister on the 2nd toe left foot. Not sure how. Has been applying bandage overlying. Denies any other pedal complaints PAST MEDICAL HISTORY Diagnosis Date Abnormal stress test Ankle fracture 07/2024 left CKD (chronic kidney disease), stage IV (HCC) Diabetes mellitus (HCC) Type 1 Diabetic polyneuropathy (HCC) Essential hypertension Hypercholesteremia Hyperparathyroidism (HCC) Hypotension Known medical problems peritoneal dialysis Known medical problems edema Known medical problems hyperlipidemia Pacemaker 01/2024 Summa placed for sick sinus syndrome Vitamin D deficiency Current Outpatient Medications Medication Sig atorvastatin (LIPITOR) 20 mg tablet Take 20 mg by mouth. TRIPHROCAPS 1 mg capsule Take 1 capsule by mouth once daily. calcitriol (ROCALTROL) 0.5 mcg capsule Take 0.5 mcg by mouth. docusate sodium (COLACE) 100 mg capsule Take 100 mg by mouth. felodipine ER (PLENDIL) 10 mg 24 hr tablet Take 10 mg by mouth. fenofibrate (LOFIBRA) 200 mg capsule Take 200 mg by mouth. ferrous sulfate 325 mg (65 mg iron) tablet Take 325 mg by mouth. gabapentin (NEURONTIN) 100 mg capsule Take 1 capsule by mouth. gentamicin 0.1% 0.1 % cream Apply to affected area. LANTUS SOLOSTAR U-100 INSULIN 100 unit/mL (3 mL) lactulose 10 gram/15 mL solution Take 20 g by mouth. metoprolol succinate ER (TOPROL XL) 50 mg 24 hr tablet Take 1 tablet by mouth once daily. pantoprazole DR (PROTONIX) 20 mg tablet Take 40 mg by mouth. sevelamer carbonate (RENVELA) 800 mg tablet Take 1,600 mg by mouth. No current facility-administered medications for this visit. ALLERGIES No Known Allergies Objective: Patient presents nonweightbearing to left leg. Bandaid on the 2nd toe left foot. Pt visit completed with aid of bolivian interpretor. Problem focus examination to the left lower extremity: Incision site is well healed. Small eschars overlying dorsal ankle incisions; no erythema or active drainage noted. Mild edema surrounding surgical site. No drainage. No lymphadenopathy. No lymphangitis. No surrounding cellulitis. No signs of infection. Lysed blister formation noted to the dorsal 2nd toe without erythema, edema, active drainage or warmth. No pain to palpation of the surgical site lateral ankle. No pain medially or anteriorly. Patient has no pain to palpation of calf. The calf is soft, supple and nontender without evidence of DVT. Negative Joyce's test. Satisfactory alignment is noted. Pedal pulses are palpable. Capillary refill time is less than three seconds to all digits. Protective sensation is absent to all pedal sites. Radiographs: 3 views left ankle were obtained and evaluated. Radiographic evaluation: Evidence of previous ORIF left ankle fracture. Alignment maintained. Hardware intact without breakage or loosening noted. Ankle mortise WNL. Fibula out to length. Vascular calcifications noted. Assessment: Satisfactory post-operative progress Plan: The patient was educated on clinical examination findings, postoperative prognosis and protocol. All questions were answered to patient's apparent satisfaction. - Tubigrip applied. - Transition to full weight bearing in pneumatic boot as tolerated - May shower but no soaking - Continue bandage to the 2nd toe blister formation daily Follow up 4 weeks with xrays Kali Gibson DPM [facility] 10-13-2024 History of Presen t illness Narrative DOS: 08/21/24 POD: 7.5 weeks POV: 4 Procedure: S/p ORIF left ankle fracture This 73 year old male presents for a post op visit. Patient states they are doing well. Pain is well controlled. Has been partial weightbearing to the left lower extremity in boot with assistance of crutches. Denies any current nausea, vomiting, fever, chills, shortness of breath, chest pain or calf pain. States that developed a blister on the 2nd toe left foot. Not sure how. Has been applying bandage overlying. Denies any other pedal complaints PAST MEDICAL HISTORY Diagnosis Date Abnormal stress test Ankle fracture 07/2024 left CKD (chronic kidney disease), stage IV (HCC) Diabetes mellitus (HCC) Type 1 Diabetic polyneuropathy (HCC) Essential hypertension Hypercholesteremia Hyperparathyroidism (HCC) Hypotension Known medical problems peritoneal dialysis Known medical problems edema Known medical problems hyperlipidemia Pacemaker 01/2024 Summa placed for sick sinus syndrome Vitamin D deficiency Current Outpatient Medications Medication Sig atorvastatin (LIPITOR) 20 mg tablet Take 20 mg by mouth. TRIPHROCAPS 1 mg capsule Take 1 capsule by mouth once daily. calcitriol (ROCALTROL) 0.5 mcg capsule Take 0.5 mcg by mouth. docusate sodium (COLACE) 100 mg capsule Take 100 mg by mouth. felodipine ER (PLENDIL) 10 mg 24 hr tablet Take 10 mg by mouth. fenofibrate (LOFIBRA) 200 mg capsule Take 200 mg by mouth. ferrous sulfate 325 mg (65 mg iron) tablet Take 325 mg by mouth. gabapentin (NEURONTIN) 100 mg capsule Take 1 capsule by mouth. gentamicin 0.1% 0.1 % cream Apply to affected area. LANTUS SOLOSTAR U-100 INSULIN 100 unit/mL (3 mL) lactulose 10 gram/15 mL solution Take 20 g by mouth. metoprolol succinate ER (TOPROL XL) 50 mg 24 hr tablet Take 1 tablet by mouth once daily. pantoprazole DR (PROTONIX) 20 mg tablet Take 40 mg by mouth. sevelamer carbonate (RENVELA) 800 mg tablet Take 1,600 mg by mouth. No current facility-administered medications for this visit. ALLERGIES No Known Allergies Objective: Patient presents nonweightbearing to left leg. Bandaid on the 2nd toe left foot. Pt visit completed with aid of bolivian interpretor. Problem focus examination to the left lower extremity: Incision site is well healed. Small eschars overlying dorsal ankle incisions; no erythema or active drainage noted. Mild edema surrounding surgical site. No drainage. No lymphadenopathy. No lymphangitis. No surrounding cellulitis. No signs of infection. Lysed blister formation noted to the dorsal 2nd toe without erythema, edema, active drainage or warmth. No pain to palpation of the surgical site lateral ankle. No pain medially or anteriorly. Patient has no pain to palpation of calf. The calf is soft, supple and nontender without evidence of DVT. Negative Joyce's test. Satisfactory alignment is noted. Pedal pulses are palpable. Capillary refill time is less than three seconds to all digits. Protective sensation is absent to all pedal sites. Radiographs: 3 views left ankle were obtained and evaluated. Radiographic evaluation: Evidence of previous ORIF left ankle fracture. Alignment maintained. Hardware intact without breakage or loosening noted. Ankle mortise WNL. Fibula out to length. Vascular calcifications noted. Assessment: Satisfactory post-operative progress Plan: The patient was educated on clinical examination findings, postoperative prognosis and protocol. All questions were answered to patient's apparent satisfaction. - Tubigrip applied. - Transition to full weight bearing in pneumatic boot as tolerated - May shower but no soaking - Continue bandage to the 2nd toe blister formation daily Follow up 4 weeks with xrays Kali Gibson DPM documented in this encounter [facility] 10-05-2024 Progress note Note Date/Time October 05, 2024 8:19pm [facility] [address] [place] [address] OFFICE VISIT Date of Service: 10/05/24 MR#: [id number] Acct: [id number] Name: NOÉ PINO Rep #: [id number] : 1950 Provider: RANDOLPH Mcadams Age/Sex: 73/M Location: [facility] Status: Signed HPI HPI History of Present Illness Details: This pleasant gentleman has past medical history significant for diabetes mellitus, end-stage renal disease on peritoneal dialysis, sick sinus syndrome status post permanent pacemaker placement and hypertension. He has had a Lexiscan stress Myoview done as part of his preop workup for putting him on the renal transplant list. It is been reported back as abnormal. Subsequently he is here for further evaluation and management. He had heart catheterization on 09/22/2024 that resulted in drug-eluting stent to proximal diagonal 1 and proximalramus. Medical therapy for proximal OM 1 was recommended. An attempt was made to utilize interpreting service, but phone did not have a speaker. [id number] utilized as interpreting service. Patient acknowledgeokay to do so. He denies chest, arm, jaw, or neck discomfort. He states palpitations that he describes as pounding. He denies bilateral lower extremityedema. He denies claudication. He denies shortness of breath with activity, shortness of breath at rest, orthopnea, or PND. He denies chronic cough. He denies significant, sudden weight gain. He states lightheadedness. He denies dizziness, near-syncope, or syncope. He denies blood in urine, blood in stool, or epistaxis. He denies fever with chills. He denies myalgia. He denies fatigue. His exercise level has remained stable. 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 Is patient in pain?: No Allergies No Known Allergies Allergy (Verified 09/16/24 09:12) Medications ?Medication ?Instructions ?Recorded ?Confirmed ?Type calcitriol 0.25 mcg capsule 0.25 mcg PO DAILY 10/04/23 10/05/24 History insulin glargine 100 unit/mL (3 25 unit subcut QAM 10/05/24 History mL) subcutaneous pen (Lantus Solostar U-100 Insulin) sevelamer carbonate 800 mg tablet 1,600 mg PO TID 09/1710/05/24 History vitamin B complex and vitamin C 1 cap PO DAILY 4 10/05/24 History no.20-folic acid 1 mg capsule (Triphrocaps) atorvastatin 40 mg tablet 40 mg PO QDAY 09/08/2410/05 History gabapentin 100 mg capsule 100 mg PO QHS 09/08/2410/05 History nifedipine 60 mg tablet,extended 60 mg PO BID 09/08/24 10/05/24 History release 24 hr aspirin 81 mg tablet,delayed 81 mg PO QDAY #90 tabs 10/05/24 Rx release (Adult Aspirin Regimen) pantoprazole 40 mg tablet,delayed 40 mg PO QDAY 10/05/24 History release carvedilol 3.125 mg tablet 3.125 mg PO BID #60 tabs 10/05/24 Rx clopidogrel 75 mg tablet 75 mg PO DAILY #30 tabs 0511/1110/05/24 Rx Ejection fraction %: 54 Have you fallen in the past year?: Yes [facility] Medical History Edema, unspecified Vitamin D deficiency, unspecified Proteinuria due to type 2 diabetes mellitus Weakness Hypotension Near syncope Bradycardia History of pacemaker End stage renal disease on dialysis Sick sinus syndrome Type 2 diabetes mellitus with hyperglycemia Hyperparathyroidism Hyperlipidemia, unspecified Diabetic polyneuropathy Abdominal fistula Hypercholesteremia Essential hypertension Presence of permanent cardiac pacemaker Wears glasses Insulin dependent diabetes mellitus Anemia High cholesterol Dietary restriction Gastric reflux Non-smoker Hypertension History of peritoneal dialysis End stage chronic kidney disease Positive colorectal cancer screening using Cologuard test Surgical History Stented coronary artery (09/22/24) History of cataract surgery Family History Brother Diabetes Father Diabetes Social History Smoking Status: Never smoker alcohol intake: never substance use type: does not use ROS Const Const: Negative for fatigue or weakness Eyes Eyes: Negative for change in vision ENT ENT: Negative for dizziness or balance problems Cardio Chest Pain: No Palpitations: Yes feels like its: pounding Edema: None Muscle aches with walking: None Resp Respiratory: Negative for SOB with activity, SOB at rest or SOB orthopneaundefinedSOB lying down GI GI: Negative nausea or heartburn : Negative for hematuria or frequent nighttime urination/ nocturia Musc Musc: Negative for balance problems Skin Skin: Negative non-healing lesions or rash Neuro Neuro: Positive for lightheadedness; Negative for dizziness, near syncope, syncope or weakness Endo Endo: Negative for fatigue Allergy Allergy/Immunology: Negative for rash Cardiology Exam Const Appearance: cooperative, healthy appearing, comfortable and no acute distress Nutritional Appearance: average body habitus and well nourished Orientation: alert, awake and oriented x3 Head Head: normal to inspection Ears: hearing grossly normal bilaterally Nose: external nose normal Face and Sinus: face symmetric Mouth: moist mucous membranes Eyes General: appearance normal, both eyes and all related structures Eyelids: eyelids normal EOM: EOM intact bilaterally Neck Neck: normal visual inspection and no JVD Carotids: normal carotid upstroke Chest Chest inspection: normal inspection of the chest, symmetric chest movement and normal respiratory effort; Negative cough Auscultation: Bilateral: Clear to Auscultation Cardio Rate: regular rate Rhythm: regular rhythm Heart sounds: S1 normal and S2 normal; Negative rub, gallop or murmur GI GI: normal to inspection Neuro General: patient alert, patient awake, patient oriented x3 and CN's II-XI intactbilaterally Skin Skin: no rashes or lesions noted Extremities Pulses: Normal: Right Posterior Tibial Pulse, Left Posterior Tibial Pulse, RightRadial Pulse and Left Radial Pulse Bruits: Negative: Right Radial Bruit Lower Extremity Edema: None: Right (left not assessed d/t orthopedic boot) Psych Psychological: normal affect Supplemental Info Supplemental Information Dual Chamber Pacemaker Placement 01/19/2024: Procedure Details: Procedure: Implantation of a dual chamber permanent pacemaker Assistants: None Catheters/Drains: N/A Speciments: None Approach: Left axillary vein Device Implanted: Medtronic [id number], SN: [id number] Lead Information: RA: Medtronic [id number], SN: [id number], P-wave 4.0mV, Impedance 627ohms, Threshold 1.0V@0.4ms RV: Medtronic [id number], SN: [id number], R-wave 9.8mv, Impredance 817ohms, Threshold 0.5V@0.4ms Conclusion: Impression: Successful implantation of a dual chamber permanent pacemaker via the left axillary vein. Echocardiogram 01/18/2024: Interpretation Summary: -Left Ventricle: Left ventricle size is normal. Mild basal septal thickening. Low normal left ventricular systolic function. EF by 2D Simpsons Biplane is 54%.Global longitudinal strain is -17.4%. Normal wall motion. -Right Ventricle: Right ventricle size is normal. Normal systolic function. -Aortic Valve: Mild (1+) regurgitation. -Mitral Valve: Trace regurgitation. -Tricuspid Valve: Mild (1+) regurgitation. RVSP is 35mmHg. -IVC/SVC: IVC diameter is normal and decreases less than 50% during inspiration;therefore the estimated right atrial pressure is intermediate (~8 mmHg) CXR 01/20/2024: Impression: Support Devices: Left subclavian dual-lead pacemaker with its leads overlying the expected locations of the right atrium and right ventricle Osseous Structures: Unremarkable Heart and Mediastinum: The cardiomediastinal silhouette is normal in size and configuration. Calcification of the thoracic aorta. Lungs and Pleura: No soncolidation or pulmonary edema. No pneumothorax. No sizable pleural effusion. Heart Catheterization from 09/22/2024: CORONARY ANGIOGRAPHY DOMINANCE: Left Dominant LEFT HEART ASSESSMENT LVEDP: 18 mm Hg mmHg LEFT MAIN: Angiographically normal LEFT ANTERIOR DESCENDING ARTERY: LAD: Tubular 50% Mid lesion in LAD DIAGONAL 1: Tubular 50% Proximal lesion in 1st Diagonal Tubular 90% Mid lesion in 1st Diagonal OM 1: Tubular 90% Proximal lesion in MARG1 OM 2: Tubular 90% Proximal lesion in MARG1 RAMUS: Tubular Calcified 95% Proximal lesion in Ramus RIGHT CORONARY ARTERY: RCA: Tubular 50% Mid lesion in RCA Assessment and Plan Assessment and Plan (1) Stented coronary artery: Status: Chronic Comment: [place] Archer JANNY 2.0 X 18 mm to Proximal D1, and [place] Archer JANNY 2.0 X 8 mm to Proximal Ramus 09/22/2024 Plan: He declines cardiac rehab due to orthopedic limitation with left lower leg. Willreconsider at next appointment. This appears stable. We will continue to monitor and not make any medication regimen changes. We will continue to promote risk factor and lifestyle modification. (2) Sick sinus syndrome: Status: Chronic Plan: His most recent device report was reviewed with no noted concerns. He will continue to follow with device clinic on a regular basis. (3) Presence of cardiac pacemaker: Status: Chronic Plan: Enrolled in the pacemaker clinic. We will continue to monitor. (4) End stage renal disease on dialysis: Status: Chronic Plan: On dialysis. (5) Diabetes mellitus: Status: Chronic Plan: As per PCP. (6) Hypertension: Status: Chronic Comment: CONTROLLED WITH MED Plan: Patient's blood pressure is well-controlled today in the office. We will continue to monitor. We will not make any medication regimen changes. (7) Dyslipidemia: Status: Chronic Plan: The patient was reminded of LDL goal of 70 and below for secondary prevention. Will consider advancing statin medication knowing diabetic and ideal LDL goal of50-55. Plan Details Additional Comments: Thank you for allowing us to participate in the patients plan of care, if you have any questions please do not hesitate to call. Plan was reviewed with patient/family member along with red flag symptoms. Understanding was acknowledged. Questions were answered to apparent satisfaction. This note was generated using a voice recognition system and there may be incorrect words, spelling or punctuation that were not noted when reviewing the office note prior to saving. Portions of this documentation were copied and pasted from previous office visitnotes to provide a cohesive continuity of the history. The note has been reviewed, edited, and updated, as necessary. Follow Up: 3 Months (TAPE DUPLICATOR/PA) Coding Level of Care Code Off vis,est,level 4 Diagnoses Stented coronary artery Z95.5 Sick sinus syndrome I49.5 Presence of cardiac pacemaker Z95.0 End stage renal disease on dialysis N18.6; Z99.2 Diabetes mellitus E11.9 Hypertension I10 Dyslipidemia E78.5 Coding Level of Care Code Off vis,est,level 4 Diagnoses Stented coronary artery Z95.5 Sick sinus syndrome I49.5 Presence of cardiac pacemaker Z95.0 End stage renal disease on dialysis N18.6; Z99.2 Diabetes mellitus E11.9 Hypertension I10 Dyslipidemia E78.5 Clinical Quality Measures Falls Risk Screening/Assistive Devices Have you fallen in the past year?: Yes Cardiac Ejection fraction %: 54 10/05/242018 <Electronically signed by Bola DICKSON> Date _ Bola DICKSON Cosbehzad Signature: Date (if applicable) CC: Dr. Allen Jackson MD ~ [facility] Work Phone: [phone] 157-528705-19-2025 Progress [facility] [address] [place] [address]. [address] [place] [address] OFFICE VISIT Date of Service: 10/05/24 MR#: [id number] Acct: [id number] Name: NOÉ PINO Rep #: [id number] : 1950 Provider: RANDOLPH Mcadams Age/Sex: 73/M Location: [facility] Status: Signed HPI HPI History of Present Illness Details: This pleasant gentleman has past medical history significant for diabetes mellitus, end-stage renaldisease on peritoneal dialysis, sick sinus syndrome status post permanent pacemaker placement and hypertension. He has had a Lexiscan stress Myoview done as part of his preop workup for putting him on the renal transplant list. It is been reported back as abnormal. Subsequently he is here for further evaluation and management. He had heart catheterization on 09/22/2024 that resulted in drug-elutingstent to proximal diagonal 1 and proximalramus. Medical therapy for proximal OM 1 was recommended. An attempt was made to utilize interpreting service, but phone did not have a speaker. [id number] utilized as interpreting service. Patient acknowledgeokay to do so. He denies chest, arm, jaw, or neck discomfort. He states palpitations that he describes as pounding. He denies bilateral lower ex tremityedema. He denies claudication. He denies shortness of breath with activity, shortness of breath at rest, orthopnea, or PND. He denies chronic cough. He denies significant, sudden weight gain. He states lightheadedness. He denies dizziness, near-syncope, or syncope. He denies blood in urine, blood in stool, or epistaxis. He denies fever with chills. He denies myalgia. He denies fatigue. Hisexercise level has remained stable. 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 Is patient in pain?: No Allergies No Known Allergies Allergy (Verified 09/16/24 09:12) Medications ?Medication ?Instructions ?Recorded ?Confirmed ?Type calcitriol 0.25 mcg capsule 0.25 mcg PO DAILY 10/04/23 10/05/24 History insulin glargine 100 unit/mL (3 25 unit subcut QAM 10/05/24 History mL) subcutaneous pen (Lantus Solostar U-100 Insulin) sevelamer carbonate 800 mg tablet 1,600 mg PO TID 09/1710/05/24 History vitamin B complex and vitamin C 1 cap PO DAILY 10/05/24 History no.20-folic acid 1 mg capsule (Triphrocaps) atorvastatin 40 mg tablet 40 mg PO QDAY 09/08/2410/05 History gabapentin 100 mg capsule 100 mg PO QHS 09/08/2410/05 History nifedipine 60 mg tablet,extended 60 mg PO BID 09/08/24 10/05/24 History release 24 hr aspirin 81 mg tablet,delayed 81 mg PO QDAY #90 tabs 10/05/24 Rx release (Adult Aspirin Regimen) pantoprazole 40 mg tablet,delayed 40 mg PO QDAY 10/05/24 History release carvedilol 3.125 mg tablet 3.125 mg PO BID #60 tabs 10/05/24 Rx clopidogrel 75 mg tablet 75 mg PO DAILY #30 tabs 11/1110/05/24 Rx Ejection fraction %: 54 Have you fallen in the past year?: Yes [facility] Medical History Edema, unspecified Vitamin D deficiency, unspecified Proteinuria due to type 2 diabetes mellitus Weakness Hypotension Near syncope Bradycardia History of pacemaker End stage renal disease on dialysis Sick sinus syndrome Type 2 diabetes mellitus with hyperglycemia Hyperparathyroidism Hyperlipidemia, unspecified Diabetic polyneuropathy Abdominal fistula Hypercholesteremia Essential hypertension Presence of permanent cardiac pacemaker Wears glasses Insulin dependent diabetes mellitus Anemia High cholesterol Dietary restriction Gastric reflux Non-smoker Hypertension History of peritoneal dialysis End stage chronic kidney disease Positive colorectal cancer screening using Cologuard test Surgical History Stented coronary artery (09/22/24) History of cataract surgery Family History Brother Diabetes Father Diabetes Social History Smoking Status: Never smoker alcohol intake: never substance use type: does not use ROS Const Const: Negative for fatigue or weakness Eyes Eyes: Negative for change in vision ENT ENT: Negative for dizziness or balance problems Cardio Chest Pain: No Palpitations: Yes feels like its: pounding Edema: None Muscle aches with walking: None Resp Respiratory: Negative for SOB with activity, SOB at rest or SOB orthopneaundefinedSOB lying down GI GI: Negative nausea or heartburn : Negative for hematuria or frequent nighttime urination/ nocturia Musc Musc: Negative for balance problems Skin Skin: Negative non-healing lesions or rash Neuro Neuro: Positive for lightheadedness; Negative for dizziness, near syncope, syncope or weakness Endo Endo: Negative for fatigue Allergy Allergy/Immunology: Negative for rash Cardiology Exam Const Appearance: cooperative, healthy appearing, comfortable and no acute distress Nutritional Appearance: average body habitus and well nourished Orientation: alert, awake and oriented x3 Head Head: normal to inspection Ears: hearing grossly normal bilaterally Nose: external nose normal Face and Sinus: face symmetric Mouth: moist mucous membranes Eyes General: appearance normal, both eyes and all related structures Eyelids: eyelids normal EOM: EOM intact bilaterally Neck Neck: normal visual inspection and no JVD Carotids: normal carotid upstroke Chest Chest inspection: normal inspection of the chest, symmetric chest movement and normal respiratory effort; Negative cough Auscultation: Bilateral: Clear to Auscultation Cardio Rate: regular rate Rhythm: regular rhythm Heart sounds: S1 normal and S2 normal; Negative rub, gallop or murmur GI GI: normal to inspection Neuro General: patient alert, patient awake, patient oriented x3 and CN's II-XI intactbilaterally Skin Skin: no rashes or lesions noted Extremities Pulses: Normal: Right Posterior Tibial Pulse, Left Posterior Tibial Pulse, RightRadial Pulse and Left Radial Pulse Bruits: Negative: Right Radial Bruit Lower Extremity Edema: None: Right (left not assessed d/t orthopedic boot) Psych Psychological: normal affect Supplemental Info Supplemental Information Dual Chamber Pacemaker Placement 01/19/2024: Procedure Details: Procedure: Implantation of a dual chamber permanent pacemaker Assistants: None Catheters/Drains: N/A Speciments: None Approach: Left axillary vein Device Implanted: Medtronic [id number], SN: [id number] Lead Information: RA: Medtronic [id number], SN: [id number], P-wave 4.0mV, Impedance 627ohms, Threshold 1.0V@0.4ms RV: Medtronic [id number], SN: [id number], R-wave 9.8mv, Impredance 817ohms, Threshold 0.5V@0.4ms Conclusion: Impression: Successful implantation of a dual chamber permanent pacemaker via the left axillary vein. Echocardiogram 01/18/2024: Interpretation Summary: -Left Ventricle: Left ventricle size is normal. Mild basal septal thickening. Low normal left ventricular systolic function. EF by 2D Simpsons Biplane is 54%.Global longitudinal strain is -17.4%. Normal wall motion. -Right Ventricle: Right ventricle size is normal. Normal systolic function. -Aortic Valve: Mild (1+) regurgitation. -Mitral Valve: Trace regurgitation. -Tricuspid Valve: Mild (1+) regurgitation. RVSP is 35mmHg. -IVC/SVC: IVC diameter is normal and decreases less than 50% during inspiration;therefore the estimated right atrial pressure is intermediate (~8 mmHg) CXR 01/20/2024: Impression: Support Devices: Left subclavian dual-lead pacemaker with its leads overlying the expected locations of the right atrium and right ventricle Osseous Structures: Unremarkable Heart and Mediastinum: The cardiomediastinal silhouette is normal in size and configuration. Calcification of the thoracic aorta. Lungs and Pleura: No soncolidation or pulmonary edema. No pneumothorax. No sizable pleural effusion. Heart Catheterization from 09/22/2024: CORONARY ANGIOGRAPHY DOMINANCE: Left Dominant LEFT HEART ASSESSMENT LVEDP: 18 mm Hg mmHg LEFT MAIN: Angiographically normal LEFT ANTERIOR DESCENDING ARTERY: LAD: Tubular 50% Mid lesion in LAD DIAGONAL 1: Tubular 50% Proximal lesion in 1st Diagonal Tubular 90% Mid lesion in 1st Diagonal OM 1: Tubular 90% Proximal lesion in MARG1 OM 2: Tubular 90% Proximal lesion in MARG1 RAMUS: Tubular Calcified 95% Proximal lesion in Ramus RIGHT CORONARY ARTERY: RCA: Tubular 50% Mid lesion in RCA Assessment and Plan Assessment and Plan (1) Stented coronary artery: Status: Chronic Comment: [place] JANNY 2.0 X 18 mm to Proximal D1, and [place] JANNY 2.0 X 8 mm to Proximal Ramus 09/22/2024 Plan: He declines cardiac rehab due to orthopedic limitation with left lower leg. Willreconsider at next appointment. This appears stable. We will continue to monitor and not make any medication regimen changes. We will continue to promote risk factor and lifestyle modification. (2) Sick sinus syndrome: Status: Chronic Plan: His most recent device report was reviewed with no noted concerns. He will continue to follow with device clinic on a regular basis. (3) Presence of cardiac pacemaker: Status: Chronic Plan: Enrolled in the pacemaker clinic. We will continue to monitor. (4) End stage renal disease on dialysis: Status: Chronic Plan: On dialysis. (5) Diabetes mellitus: Status: Chronic Plan: As per PCP. (6) Hypertension: Status: Chronic Comment: CONTROLLED WITH MED Plan: Patient's blood pressure is well-controlled today in the office. We will continue to monitor. We will not make any medication regimen changes. (7) Dyslipidemia: Status: Chronic Plan: The patient was reminded of LDL goal of 70 and below for secondary prevention. Will consider advancing statin medication knowing diabetic and ideal LDL goal of50-55. Plan Details Additional Comments: Thank you for allowing us to participate in the patients plan of care, if you have any questions please do not hesitate to call. Plan was reviewed with patient/family member along with red flag symptoms. Understanding was acknowledged. Questions were answered to apparent satisfaction. This note was generated using a voice recognition system and there may be incorrect words, spellingor punctuation that were not noted when reviewing the office note prior to saving. Portions of this documentation were copied and pasted from previous office visitnotes to provide a cohesive continuity of the history. The note has been reviewed, edited, and updated, as necessary. Follow Up: 3 Months (TAPE DUPLICATOR/PA) Coding Level of Care Code Off vis,est,level 4 Diagnoses Stented coronary artery Z95.5 Sick sinus syndrome I49.5 Presence of cardiac pacemaker Z95.0 End stage renal disease on dialysis N18.6; Z99.2 Diabetes mellitus E11.9 Hypertension I10 Dyslipidemia E78.5 Coding Level of Care Code Off vis,est,level 4 Diagnoses Stented coronary artery Z95.5 Sick sinus syndrome I49.5 Presence of cardiac pacemaker Z95.0 End stage renal disease on dialysis N18.6; Z99.2 Diabetes mellitus E11.9 Hypertension I10 Dyslipidemia E78.5 Clinical Quality Measures Falls Risk Screening/Assistive Devices Have you fallen in the past year?: Yes Cardiac Ejection fraction %: 54 10/05/242018 P TAPE DUPLICATOR-C> Date _ Bola Pema TAPE DUPLICATOR TAPE DUPLICATOR-C Cosigner Signature: Date (if applicable) CC: Dr. Allen Jackson MD ~ [facility]05-07-2025 Progress note [facility] Medical Records Department [address] [place] [address] Progress Note 09/23/24 1003 MR#: [id number] Acct: [id number] Name: NOÉ PINO Rep #:[id number] : 1950 73 From: Rylee Mendez PCP: Dr. Allen Jackson MD Status:ADM I NO Location: [place] [address] Progress Note chart reviewed. Discussed with pt son and son's sig other at bedside and with cardiology. Follow upin dialysis clinic on September 30. Pt doing well. Dialysis to be done at home since PD services not available in the hospital. 09/23/241004 Rylee Coronel DO Cosigner Signature (if applicable): CC: ~ Signed [facility]05-07-2025 Progress note Author Rakesh Young [facility] Note Date/Time September 23, 2024 7:41am [facility] Medical Records Department [address] [place] [address] Progress Note - Cardiology 09/23/2435 MR#: [id number] Acct: [id number] Name: NOÉ PINO Rep #:[id number] : 1950 73 From: Rakesh Young MD PCP: Dr. Allen Jackson MD Status:ADM I NO Location: [place] [address] Subjective Subjective Called to see the patient due to a question about his wrist access site for his catheterization/PCI. The patient was hypertensive last evening requiring IV hydralazine to control his blood pressure which came under nice control. He did have a small hematoma and ecchymoses in his right wrist. The patient denies any pain at this point intime denies any paresthesias in his right hand. Objective Data Vital Signs: Vital Signs Temp Pulse Resp BP Pulse Ox O2 Del Method 97.8 F 69 16 111/56 L 100 Room Air 09/23/24 05:20 09/23/24 05:20 09/23/24 05:20 09/23/24 05:20 09/23/24 05:20 09/23/24 05:32 Oxygen Delivery Method Room Air Weight: 153 lb 15.992 oz Body Mass Index (BMI) 24.1 Lab / Micro Data Attestation: I reviewed the patient's lab results. 09/23/24 06:13 09/23/24 06:13 Labs: Laboratory Results - last 24 hr 09/22/24 11:03: Activated Clotting Time 210 H 09/22/24 12:13: Activated Clotting Time 251 H 09/23/24 06:13: WBC 6.4, RBC 3.05 L, Hgb 9.3 L, Hct 27.5 L, MCV 90.2, MCH 30.5, MCHC 33.8, RDW Std Deviation 41.3, RDW Coeff of Brittney 12.7, Plt Count 187, MPV 9.7, Sodium 132 L, Potassium 4.7, Chloride 95 L, Carbon Dioxide 22.0, Anion Gap 15, BUN 62 H, Creatinine 11.00 H*, Estim Creat Clear Calc 5.76 L*, Est GFR (MDRD) Non-Af 5 L, BUN/Creatinine Ratio 5.6 L, Glucose 115 H, Calcium 10.1, Total Bilirubin 0.25, AST 19, ALT 13, Alkaline Phosphatase 43, Total Protein 6.9, Albumin 3.5, Globulin 3.4, Albumin/Globulin Ratio 1.0 Rhythm Strip Rhythm Strip: Paced Cardiology Labs/Tests 09/23/24 06:13: WBC 6.4, RBC 3.05 L, Hgb 9.3 L, Hct 27.5 L, MCV 90.2, MCH 30.5, MCHC 33.8, Plt Count 187, MPV 9.7, Sodium 132 L, Potassium 4.7, Chloride 95 L, Carbon Dioxide 22.0, Anion Gap 15, BUN 62 H, Creatinine 11.00 H*, Est GFR (MDRD)Non-Af 5 L, BUN/Creatinine Ratio 5.6 L, Glucose 115 H, Calcium 10.1, Total Bilirubin 0.25 Rhythm: EKG: ECHO: Stress Test: Cardiac Cath: PCI: CT Surgery: Holter monitor: EPS: PPM: CXR: Chest CT Scan: Physical Exam Narrative Patient does not speak [place]. His son was in the room who acted as an secretary of police but admitted that he does not understand complete [place] either. Idid record on the son's phone discharge instructions concerning the patient's wrist and his medical therapy. There is a family member who speaks fluent [place] Const alert HEENT normocephalic Eyes EOMs intact bilaterally Chest inspection of chest normal Chest: left pectoral incision Resp normal respiratory effort Cardio regular rate and regular rhythm Cardio Narrative: Right wrist shows an area of ecchymoses approximately one third of the distal forearm. There is no tenderness there is no tightness. The patient has good capillary refill and no paresthesias of his fingertips. Extremity Extremity Narrative: See cardiology narrative above for right wrist. Assessment & Plan Assessment/Plan (1) CAD (coronary artery disease): QUALIFIERS: Coronary Disease-Associated Artery/Lesion type: nativeartery [place] vs. transplanted heart: [place] heart Associated angina: without angina Qualified Code(s): I25.10 - Atherosclerotic heart disease of [place] coronary artery without angina pectoris PLAN: Patient status post JANNY to the proximal diagonal 1 and proximal ramus branch of the circumflex. This was done yesterday by Dr. Mathew. Right wrist shows some ecchymosis but no evidence of vascular compromise. The patient denies any pain. (2) Presence of cardiac pacemaker: PLAN: Patient's pacemaker appears to be functioning normally by telemetry. (3) End stage renal disease on dialysis: PLAN: Patient is on home peritoneal dialysis. PLAN: Plan 1. Patient should continue his home medications. 2. Patient should continue aspirin and clopidogrel 75 mg daily uninterrupted for 6 months at minimum. 3. Patient should follow-up with Dr. Mathew in his office per his previous arranged appointment. They should call the office to confirm the date and time. 4. My cardiovascular standpoint the patient can be discharged to home. 09/23/2441 <Electronically signed by Rakesh Young MD> Cosigner Signature (if applicable): CC: ~ Signed [facility] Work Phone: 1(433) 960-733405-07-2025 Progress note [facility] Medical Records Department [address] [place] [address] Progress Note - Cardiology 09/23/24734 MR#: [id number] Acct: [id number] Name: NOÉ PINO Rep #:[id number] : 1950 73 From: Rakesh Young MD PCP: Dr. Allen Jackson MD Status:ADM I NO Location: [place] [address] Subjective Subjective Called to see the patient due to a question about his wrist access site for his catheterization/PCI. The patient was hypertensive last evening requiring IV hydralazine to control his blood pressure which came under nice control. He did have a small hematoma and ecchymoses in his right wrist. The patient denies any pain at this point intime denies any paresthesias in his right hand. Objective Data Vital Signs: Vital Signs Temp Pulse Resp BP Pulse Ox O2 Del Method 97.8 F 69 16 111/56 L 100 Room Air 09/23/24 05:20 09/23/24 05:20 09/23/24 05:20 09/23/24 05:20 09/23/24 05:20 09/23/24 05:32 Oxygen Delivery Method Room Air Weight: 153 lb 15.992 oz Body Mass Index (BMI) 24.1 Lab / Micro Data Attestation: I reviewed the patient's lab results. 09/23/24 06:13 09/23/24 06:13 Labs: Laboratory Results - last 24 hr 09/22/24 11:03: Activated Clotting Time 210 H 09/22/24 12:13: Activated Clotting Time 251 H 09/23/24 06:13: WBC 6.4, RBC 3.05 L, Hgb 9.3 L, Hct 27.5 L, MCV 90.2, MCH 30.5, MCHC 33.8, RDW Std Deviation 41.3, RDW Coeff of Brittney 12.7, Plt Count 187, MPV 9.7, Sodium 132 L, Potassium 4.7, Gbnppgrw96 L, Carbon Dioxide 22.0, Anion Gap 15, BUN 62 H, Creatinine 11.00 H*, Estim Creat Clear Calc 5.76L*, Est GFR (MDRD) Non-Af 5 L, BUN/Creatinine Ratio 5.6 L, Glucose 115 H, Calcium 10.1, Total Bilirubin 0.25, AST 19, ALT 13, Alkaline Phosphatase 43, Total Protein 6.9, Albumin 3.5, Globulin 3.4, Albumin/Globulin Ratio 1.0 Rhythm Strip Rhythm Strip: Paced Cardiology Labs/Tests 09/23/24 06:13: WBC 6.4, RBC 3.05 L, Hgb 9.3 L, Hct 27.5 L, MCV 90.2, MCH 30.5, MCHC 33.8, Plt Count 187, MPV 9.7, Sodium 132 L, Potassium 4.7, Chloride 95 L, Carbon Dioxide 22.0, Anion Gap 15, BUN 62 H, Creatinine 11.00 H*, Est GFR (MDRD)Non-Af 5 L, BUN/Creatinine Ratio 5.6 L, Glucose 115 H, Calcium 10.1, Total Bilirubin 0.25 Rhythm: EKG: ECHO: Stress Test: Cardiac Cath: PCI: CT Surgery: Holter monitor: EPS: PPM: CXR: Chest CT Scan: Physical Exam Narrative Patient does not speak [place]. His son was in the room who acted as an secretary of police but admitted that he does not understand complete [place] either. Idid record on the son's phone discharge instructions concerning the patient's wrist and his medical therapy. There is a family member who speaks fluent [place] Const alert HEENT normocephalic Eyes EOMs intact bilaterally Chest inspection of chest normal Chest: left pectoral incision Resp normal respiratory effort Cardio regular rate and regular rhythm Cardio Narrative: Right wrist shows an area of ecchymoses approximately one third of the distal forearm. There is no tenderness there is no tightness. The patient has good capillary refill and no paresthesias of his fingertips. Extremity Extremity Narrative: See cardiology narrative above for right wrist. Assessment & Plan Assessment/Plan (1) CAD (coronary artery disease): QUALIFIERS: Coronary Disease-Associated Artery/Lesion type: nativeartery [place] vs. transplanted heart: [place] heart Associated angina: without angina Qualified Code(s): I25.10 - Atherosclerotic heart disease of [place] coronary artery without angina pectoris PLAN: Patient status post JANNY to the proximal diagonal 1 and proximal ramus branch of the circumflex. This was done yesterday by Dr. Mathew. Right wrist shows some ecchymosis but no evidence of vascular compromise. The patient denies any pain. (2) Presence of cardiac pacemaker: PLAN: Patient's pacemaker appears to be functioning normally by telemetry. (3) End stage renal disease on dialysis: PLAN: Patient is on home peritoneal dialysis. PLAN: Plan 1. Patient should continue his home medications. 2. Patient should continue aspirin and clopidogrel 75 mg daily uninterrupted for 6 months at minimum. 3. Patient should follow-up with Dr. Mathew in his office per his previous arranged appointment. They should call the office to confirm the date and time. 4. My cardiovascular standpoint the patient can be discharged to home. 09/23/24 0741 Cosigner Signature (if applicable): CC: ~ Signed [facility]05-06-2025 Discharge summary Author Apryl Mathew [facility] Note Date/Time September 22, 2024 1:43pm [facility] Medical Records Department [address] [place] [address] Instructions for Home/Discharge Instructions 09/22/24 1340 MR#: [id number] Acct: [id number] Name: NOÉ PINO Rep #:[id number] : 1950 73 From: Apryl Mathew MD PCP: Dr. Allen Jackson MD Status:ADM I NO Discharge Instructions Diet Discharge Diet: Low fat / Low cholesterol and 1800 Calorie Control Diet DC O2, CPAP, BIPAP needs Home O2 Discharge instructions: No Dressing / Incision Discharge Activity: Return to Normal Activity Dressing / Incision Call your doctor if your incision/area has: Continuous Slow Oozing, Sudden Increased Bleeding, Increased Pain/ Swelling, Increased Redness and Foul Smelling Discharge Call your doctor if you observe: Fever of 101 or Higher, Coldness, Increased Pain, Numbness or Tingling and Change in Color Follow Up Care Please Follow Up With: Apryl Mathew MD When: 2-4 weeks Test Results: Test results from this visit will be discussed in further detail at your follow- up appointment, if applicable. Discharge Plan Admission Admit Date/Time: 09/22/24 13:37 Attending Provider: Apryl Mathew Primary Care Provider: Allen Jackson Chi Discharge Orders/Prescriptions Prescriptions: New clopidogrel 75 mg Tablet 75 mg PO DAILY Qty: 30 6RF carvedilol 3.125 mg Tablet 3.125 mg PO BID Qty: 60 11RF Continued sevelamer carbonate 800 mg tablet 1,600 mg PO TID Rx Instructions: must administer with a meal/food Triphrocaps 1 mg capsule 1 cap PO DAILY calcitriol 0.25 mcg capsule 0.25 mcg PO DAILY insulin glargine [Lantus Solostar U-100 Insulin] 100 unit/mL (3 mL) insulin pen 25 unit subcut QAM nifedipine 60 mg tablet extended release 24hr 60 mg PO BID atorvastatin 40 mg tablet 40 mg PO QDAY gabapentin 100 mg capsule 100 mg PO QHS pantoprazole 40 mg tablet,delayed release (DR/EC) 40 mg PO QDAY aspirin [Adult Aspirin Regimen] 81 mg tablet,delayed release (DR/EC) 81 mg PO QDAY Qty: 90 3RF Discontinued felodipine 10 mg tablet extended release 24 hr 10 mg PO QDAY Referrals / Follow Up: Allen Jackson Chi, MD [Primary Care Provider] - Disposition Disposition (needs filled in before D/C Order can be placed): Home, Self Care 09/22/24 1343<Electronically signed by Apryl Mathew MD>Apryl Mathew MD CC: Dr. Allen Jackson MD ~ Signed [facility] Work Phone: 1(481) 358-670105-06-2025 Study report [facility] Cardiac Rehab [address] [place] [address] CR: Phase I Education Summary MR#: [id number] Acct: [id number] Name: NOÉ PINO Rep #:[id number] : 1950 73 From: Paula rubalcava PCP: Dr. Allen Jackson MD DOS: General Education Discussed with Patient CAD and cardiac anatomy and function:: Family communicates acknowledgment Explanation of diagnoses and procedures:: Family communicates acknowledgment Sign/Symptoms of OR:: Family communicates acknowledgment Antiplatelet therapy: Family communicates acknowledgment Proper use of NTG-SL: Family communicates acknowledgment Emergency procedures and activation of EMS: Family communicates acknowledgment Compliance of all prescribed medications: Family communicates acknowledgment Smoking Risk Factors Patient Nicotine/Smoking Risk Factors Are:: Non-smoker Recommendations Recommendations Include:: Second-hand smoke recommendation Response Code Nicotine/Smoking Response Code:: Family communicates acknowledgment Dyslipidemia Recommendations Recommendations Include:: Lipid profile not available Response Code Dyslipidemia Response Code:: Family communicates acknowledgment Overweight/Obesity Risk Factors Patient Overweight/Obesity Risk Factors Are:: BMI Normal [24-29 & > 65 years old] Response Code Overweight/Obesity:: Family communicates acknowledgment Hypertension Recommendations Recommendations Include:: BP <130/80 if diabetic Response Code Hypertension:: Family communicates acknowledgment Heart Disease Recommendations Recommendations Include:: Educated family members of importance of prevention ofheart disease Response Code Heart Disease Response Code:: Family communicates acknowledgment Diabetes Recommendations Recommendations Include:: Maintain fasting blood sugars 70-110 md/dL, Maintain HgbA1c of 6% or lessand Monitor blood sugar as prescribed Response Code Diabetes:: Family communicates acknowledgment Metabolic Syndrome Recommendations Recommendations Include:: Does not meet criteria Response Code Metabolic Syndrome Response Code:: Family communicates acknowledgment Sedentary Recommendations Recommendations Include:: Monitored Outpatient Cardiac Rehab Response Code Sedentary Response Code:: Family communicates acknowledgment Stress Recommendations Recommendations Include:: Identification of stressors, and assessment of coping skills and Stress management techniques Response Code Stress Response Code:: Family communicates acknowledgment 09/22/24 1415 Date Paula Corral Outcome assessment reviewed. Exercise plan approved as documented. Treatment plan and goals support patient needs/abilities. Continue with current plan. I certify the patient demonstrates improvement and remains willing and capable of participation. the patient continues to benefit from cardiac rehab services/training. The patient may continue at current intensity, endurance andmodality and progress per protocol. Cosigner Signature: Date CC: ~ Signed [facility]05-06-2025 Discharge summary [facility] Medical Records Department [address] [place] [id number] Instructions for Home/Discharge Instructions 09/22/24 1340 MR#: [id number] Acct: [id number] Name: NOÉ PINO Rep #:[id number] : 1950 73 From: Apryl Mathew MD PCP: Dr. Allen Jackson MD Status:ADM I NO Discharge Instructions Diet Discharge Diet: Low fat / Low cholesterol and 1800 Calorie Control Diet DC O2, CPAP, BIPAP needs Home O2 Discharge instructions: No Dressing / Incision Discharge Activity: Return to Normal Activity Dressing / Incision Call your doctor if your incision/area has: Continuous Slow Oozing, Sudden Increased Bleeding, Increased Pain/ Swelling, Increased Redness and Foul Smelling Discharge Call your doctor if you observe: Fever of 101 or Higher, Coldness, Increased Pain, Numbness or Tingling and Change in Color Follow Up Care Please Follow Up With: Apryl Mathew MD When: 2-4 weeks Test Results: Test results from this visit will be discussed in further detail at your follow- up appointment, if applicable. Discharge Plan Admission Admit Date/Time: 09/22/24 13:37 Attending Provider: Apryl Mathew Primary Care Provider: Allen Jackson Chi Discharge Orders/Prescriptions Prescriptions: New clopidogrel 75 mg Tablet 75 mg PO DAILY Qty: 30 6RF carvedilol 3.125 mg Tablet 3.125 mg PO BID Qty: 60 11RF Continued sevelamer carbonate 800 mg tablet 1,600 mg PO TID Rx Instructions: must administer with a meal/food Triphrocaps 1 mg capsule 1 cap PO DAILY calcitriol 0.25 mcg capsule 0.25 mcg PO DAILY insulin glargine [Lantus Solostar U-100 Insulin] 100 unit/mL (3 mL) insulin pen 25 unit subcut QAM nifedipine 60 mg tablet extended release 24hr 60 mg PO BID atorvastatin 40 mg tablet 40 mg PO QDAY gabapentin 100 mg capsule 100 mg PO QHS pantoprazole 40 mg tablet,delayed release (DR/EC) 40 mg PO QDAY aspirin [Adult Aspirin Regimen] 81 mg tablet,delayed release (DR/EC) 81 mg PO QDAY Qty: 90 3RF Discontinued felodipine 10 mg tablet extended release 24 hr 10 mg PO QDAY Referrals / Follow Up: Allen Jackson Chi, MD [Primary Care Provider] - Disposition Disposition (needs filled in before D/C Order can be placed): Home, Self Care 09/22/24 [id number] Mathew MD CC: Dr. Allen Jackson MD ~ Signed [facility]05-02-2025 NoteHNO ID: [id number] Author: KALI GIBSON DPM Service: ? Author Type: Physician Type: Progress Notes Filed: 09/18/2024 23:32 Note Text: DOS: 08/21/24 POD: 4 weeks POV: 3 Procedure: S/p ORIF left ankle fracture This 73 year old male presents for a post op visit. Patient states they are doing well. Pain is well controlled. Has been nonweightbearing to the left lower extremity. Denies any current nausea, vomiting, fever, chills, shortness of breath, chest pain or calf pain. Denies any other pedal complaints PAST MEDICAL HISTORY Diagnosis Date Abnormal stress test Ankle fracture 07/2024 left CKD (chronic kidney disease), stage IV (HCC) Diabetes mellitus (HCC) Type 1 Diabetic polyneuropathy (HCC) Essential hypertension Hypercholesteremia Hyperparathyroidism (HCC) Hypotension Known medical problems peritoneal dialysis Known medical problems edema Known medical problems hyperlipidemia Pacemaker 01/2024 Summa placed for sick sinus syndrome Vitamin D deficiency Current Outpatient Medications Medication Sig atorvastatin (LIPITOR) 20 mg tablet Take 20 mg by mouth. TRIPHROCAPS 1 mg capsule Take 1 capsule by mouth once daily. calcitriol (ROCALTROL) 0.5 mcg capsule Take 0.5 mcg by mouth. docusate sodium (COLACE) 100 mg capsule Take 100 mg by mouth. felodipine ER (PLENDIL) 10 mg 24 hr tablet Take 10 mg by mouth. fenofibrate (LOFIBRA) 200 mg capsule Take 200 mg by mouth. ferrous sulfate 325 mg (65 mg iron) tablet Take 325 mg by mouth. gabapentin (NEURONTIN) 100 mg capsule Take 1 capsule by mouth. gentamicin 0.1% 0.1 % cream Apply to affected area. LANTUS SOLOSTAR U-100 INSULIN 100 unit/mL (3 mL) lactulose 10 gram/15 mL solution Take 20 g by mouth. metoprolol succinate ER (TOPROL XL) 50 mg 24 hr tablet Take 1 tablet by mouth once daily. pantoprazole DR (PROTONIX) 20 mg tablet Take 40 mg by mouth. sevelamer carbonate (RENVELA) 800 mg tablet Take 1,600 mg by mouth. No current facility-administered medications for this visit. ALLERGIES No Known Allergies Objective: Patient presents nonweightbearing to left leg. Dressing is dry, clean, and intact with minimal strike through noted. Pt visit completed with aid of bolivian interpretor. Problem focus examination to the left lower extremity: Incision site is well coapted without evidence of dehiscence. Scattered small eschars overlying lateral ankle incisions; no erythema or active drainage noted. Mild edema surrounding surgical site. No drainage. No lymphadenopathy. No lymphangitis. No surrounding cellulitis. No signs of infection. No pain to palpation of the surgical site lateral ankle. No pain medially or anteriorly. Patient has no pain to palpation of calf. The calf is soft, supple and nontender without evidence of DVT. Negative Joyce's test. Satisfactory alignment is noted. Pedal pulses are palpable. Capillary refill time is less than three seconds to all digits. Protective sensation is absent to all pedal sites. Radiographs: 3 views left ankle were obtained and evaluated. Radiographic evaluation: Evidence of previous ORIF left ankle fracture. Alignment maintained. Hardware intact without breakage or loosening noted. Ankle mortise WNL. Fibula out to length. Assessment: Satisfactory post-operative progress Plan: The patient was educated on clinical examination findings, postoperative prognosis and protocol. All questions were answered to patient's apparent satisfaction. - Tubigrip applied. -- Transition to partial weight bearing in pneumatic boot with assistance of crutches slowly and as tolerated for the next 2 weeks. - Follow-up in 2 weeks with repeat x-ray; possible transition to full weight bearing in boot at that time. - May shower but no soaking - Instructed patient to contact the office if the dressing becomes wet to arrange for a change. Follow up 2 [facility] History of Present illness Narrative* Kali Gibson DPM - 09/18/2024 3:13 PM EDT DOS: 08/21/24 POD: 4 weeks POV: 3 Procedure: S/p ORIF left ankle fracture This 73 year old male presents for a post op visit. Patient states they are doing well. Pain is well controlled. Has been nonweightbearing to the left lower extremity. Denies any current nausea, vomiting, fever, chills, shortness of breath, chest pain or calf pain. Denies any other pedal complaints PAST MEDICAL HISTORY Diagnosis Date Abnormal stress test Ankle fracture 07/2024 left CKD (chronic kidney disease), stage IV (HCC) Diabetes mellitus (HCC) Type 1 Diabetic polyneuropathy (HCC) Essential hypertension Hypercholesteremia Hyperparathyroidism (HCC) Hypotension Known medical problems peritoneal dialysis Known medical problems edema Known medical problems hyperlipidemia Pacemaker 01/2024 Summa placed for sick sinus syndrome Vitamin D deficiency Current Outpatient Medications Medication Sig atorvastatin (LIPITOR) 20 mg tablet Take 20 mg by mouth. TRIPHROCAPS 1 mg capsule Take 1 capsule by mouth once daily. calcitriol (ROCALTROL) 0.5 mcg capsule Take 0.5 mcg by mouth. docusate sodium (COLACE) 100 mg capsule Take 100 mg by mouth. felodipine ER (PLENDIL) 10 mg 24 hr tablet Take 10 mg by mouth. fenofibrate (LOFIBRA) 200 mg capsule Take 200 mg by mouth. ferrous sulfate 325 mg (65 mg iron) tablet Take 325 mg by mouth. gabapentin (NEURONTIN) 100 mg capsule Take 1 capsule by mouth. gentamicin 0.1% 0.1 % cream Apply to affected area. LANTUS SOLOSTAR U-100 INSULIN 100 unit/mL (3 mL) lactulose 10 gram/15 mL solution Take 20 g by mouth. metoprolol succinate ER (TOPROL XL) 50 mg 24 hr tablet Take 1 tablet by mouth once daily. pantoprazole DR (PROTONIX) 20 mg tablet Take 40 mg by mouth. sevelamer carbonate (RENVELA) 800 mg tablet Take 1,600 mg by mouth. No current facility-administered medications for this visit. ALLERGIES No Known Allergies Objective: Patient presents nonweightbearing to left leg. Dressing is dry, clean, and intact with minimal strike through noted. Pt visit completed with aid of bolivian interpretor. Problem focus examination to the left lower extremity: Incision site is well coapted without evidence of dehiscence. Scattered small eschars overlying lateral ankle incisions; no erythema or active drainage noted. Mild edema surrounding surgical site. Nodrainage. No lymphadenopathy. No lymphangitis. No surrounding cellulitis. No signs of infection. No pain to palpation of the surgical site lateral ankle. No pain medially or anteriorly. Patient has no pain to palpation of calf. The calf is soft, supple and nontender without evidence of DVT. Negative Joyce's test. Satisfactory alignment is noted. Pedal pulses are palpable. Capillary refill time is less than three seconds to all digits. Protective sensation is absent to all pedal sites. Radiographs: 3 views left ankle were obtained and evaluated. Radiographic evaluation: Evidence of previous ORIF left ankle fracture. Alignment maintained. Hardware intact without breakage or loosening noted. Ankle mortise WNL. Fibula out to length. Assessment: Satisfactory post-operative progress Plan: The patient was educated on clinical examination findings, postoperative prognosis and protocol. All questions were answered to patient's apparent satisfaction. - Tubigrip applied. -- Transition to partial weight bearing in pneumatic boot with assistance of crutches slowly and astolerated for the next 2 weeks. - Follow-up in 2 weeks with repeat x-ray; possible transition to full weight bearing in boot at that time. - May shower but no soaking - Instructed patient to contact the office if the dressing becomes wet to arrange for a change. Follow up 2 weeks with xrays Kali Gibson DPM [facility] NoteRadiographs: 3 views left ankle were obtained and evaluated. Radiographic evaluation: Evidence of previous ORIF left ankle fracture. Alignment maintained. Hardware intact without breakage or loosening noted. Ankle mortise WNL. Fibula out to length.[facility] [id number] Telephone encounter Note* Telephone Encounter - Kasie Lamar CMA - 09/17/2024 1:29 PM EDT states pt will be following at [facility])for pacemaker, she states closer to home, transferred [facility] carelink [facility]. [id number] Miscellaneous Notes* Telephone Encounter - Kasie Lamar CMA - 09/17/2024 1:29 PM EDT states pt will be following at [facility])for pacemaker, she states closer to home, transferred on carelink site. documented in this encounterSLancaster Municipal [id number] Evaluation note* Diagnosis Onset Date Resolution Status Admit Date Abnormal cardiovascular stre ss test acute September 16, 2024 8:56am Diabetes mellitus chronic August 202024 8:56am Dyslipidemia chronic September 16, 2024 8:56am End stage renal disease on dialysis chronic September 16, 2024 8:56am Hypertension chronic September 16, 2024 8:56am Presence of cardiac pacemaker chroni c September 16, 2024 8:56am Sick sinus syndrome chronic September 16, 2024 8:56am CAD (coronary artery disease) acute September 22, 2024 1:33pm End stage renal disease on dialysis September 22, 2024 1: 33pm Presence of cardiac pacemaker chroni c September 22, 2024 1:33pm [facility] Work Phone: 1(188) 882-488104-30-2025 Evaluation note* Diagnosis Onset Date Resolution Status Admit Date Abnormal cardiovascular stre ss test acute September 16, 2024 8:56am Diabetes mellitus chronic August 202024 8:56am Dyslipidemia chronic September 16, 2024 8:56am End stage renal disease on dialysis chronic September 16, 2024 8:56am Hypertension chronic September 16, 2024 8:56am Presence of cardiac pacemaker chroni c September 16, 2024 8:56am Sick sinus syndrome chronic September 16, 2024 8:56am CAD (coronary artery disease) chroni c September 22, 2024 1:33pm End stage renal disease on dialysis September 22, 2024 1: 33pm Presence of cardiac pacemaker chroni c September 22, 2024 1:33pm [facility] Work Phone: 1(509) 259-202004-30-2025 Evaluation note* Diagnosis Onset Date Resolution Status Admit Date Abnormal cardiovascular stre ss test acute September 16, 2024 8:56am Diabetes mellitus chronic August 202024 8:56am Dyslipidemia chronic September 16, 2024 8:56am End stage renal disease on dialysis chronic September 16, 2024 8:56am Hypertension chronic September 16, 2024 8:56am Presence of cardiac pacemaker chroni c September 16, 2024 8:56am Sick sinus syndrome chronic September 16, 2024 8:56am CAD (coronary artery disease) chroni c September 22, 2024 1:33pm End stage renal disease on dialysis September 22, 2024 1: 33pm Presence of cardiac pacemaker chroni c September 22, 2024 1:33pm Diabetes mellitus chronic September 3:54pm Dyslipidemia chronic October 05 3:54pm End stage renal disease on dialysis chronic October 05, 2024 3 :54pm Hypertension chronic October 05 3:54pm Presence of cardiac pacemaker chroni c October 05, 2024 3:54pm Sick sinus syndrome chronic September 172024 3:54pm Stented coronary artery September 22, 2024 chronic October 05, 2024 3:54pm [facility] Work Phone: 1(680) 979-983704-30-2025 Evaluation note* Diagnosis Onset Date Resolution Status Admit Date Abnormal cardiovascular stre ss test acute September 16, 2024 8:56am Diabetes mellitus chronic August 202024 8:56am Dyslipidemia chronic September 16, 2024 8:56am End stage renal disease on dialysis chronic September 16, 2024 8:56am Hypertension chronic September 16, 2024 8:56am Presence of cardiac pacemaker chroni c September 16, 2024 8:56am Sick sinus syndrome chronic September 16, 2024 8:56am CAD (coronary artery disease) chroni c September 22, 2024 1:33pm End stage renal disease on dialysis chronic September 22, 2024 1: 33pm Presence of cardiac pacemaker chroni c September 22, 2024 1:33pm Diabetes mellitus chronic September 3:54pm Dyslipidemia chronic October 05 3:54pm End stage renal disease on dialysis chronic October 05, 2024 3 :54pm Hypertension chronic October 05 3:54pm Presence of cardiac pacemaker chroni c October 05, 2024 3:54pm Sick sinus syndrome chronic September 172024 3:54pm Stented coronary artery September 22, 2024 chronic October 05, 2024 3:54pm Diabetes mellitus chronic December 30, 2024 9:44am Dyslipidemia chronic December 30, 2024 9:44am End stage renal disease on dialysis chronic December 30 9:44am Hypertension chronic December 30, 2024 9:44am Presence of cardiac pacemaker chroni c December 30, 2024 9:44am Sick sinus syndrome chronic 2024 9:44am Stented coronary artery September 22, 2024 chronic December 30, 2024 9:44am [facility] [employer] Work Phone: 1([phone]) 127-111304-18-2025 NoteRadiographs: 3 views left foot were obtained and evaluated. Radiographic evaluation: Evidence of previous ORIF left ankle fracture. Hardware intact without breakage or loosening noted. Ankle mortise WNL. Fibula out to length.[facility] [id number] Instructions* Patient Instructions* Kali Gibson DPM - 09/04/2024 1:29 PM EDT Continue nonweightbearing to the left ankle in boot. Remove boot for range of motion exercises twice daily No soaking - Contin e usando la bota oumar 2 semanas m s. - Comience a dejar de usar la bota gradualmente despu s de 2 semanas, comenzando con breves periodos de caminata en casa. - Vigile si hay molestias oumar la transici n; si experimenta dolor significativo, reanude el usode la bota y minimice la actividad. - Danielle de seguimiento en 4-5 semanas para shikha radiograf a final que confirme la curaci n completa. documented in this encounterC[facility]04-[facility]25 NoteHNO ID: [id number] Author: KALI GIBSON DPM Service: ? Author Type: Physician Type: Progress Notes Filed: 09/04/2024 14:01 Note Text: DOS: 08/21/24 POD: 14 days POV: 2 Procedure: S/p ORIF left ankle fracture This 73 year old male presents for a post op visit. Patient states they are doing well. Pain is well controlled by [place]. Just taking as needed at this time. He is currently using prescribed analgesics and does not require a refill. Has been nonweightbearing to the left lower extremity. Denies any current nausea, vomiting, fever, chills, shortness of breath, chest pain or calf pain. Denies any other pedal complaints PAST MEDICAL HISTORY Diagnosis Date Abnormal stress test Ankle fracture 07/2024 left CKD (chronic kidney disease), stage IV (HCC) Diabetes mellitus (HCC) Type 1 Diabetic polyneuropathy (HCC) Essential hypertension Hypercholesteremia Hyperparathyroidism (HCC) Hypotension Known medical problems peritoneal dialysis Known medical problems edema Known medical problems hyperlipidemia Pacemaker 01/2024 Summa placed for sick sinus syndrome Vitamin D deficiency Current Outpatient Medications Medication Sig atorvastatin (LIPITOR) 20 mg tablet Take 20 mg by mouth. TRIPHROCAPS 1 mg capsule Take 1 capsule by mouth once daily. calcitriol (ROCALTROL) 0.5 mcg capsule Take 0.5 mcg by mouth. docusate sodium (COLACE) 100 mg capsule Take 100 mg by mouth. felodipine ER (PLENDIL) 10 mg 24 hr tablet Take 10 mg by mouth. fenofibrate (LOFIBRA) 200 mg capsule Take 200 mg by mouth. ferrous sulfate 325 mg (65 mg iron) tablet Take 325 mg by mouth. gabapentin (NEURONTIN) 100 mg capsule Take 1 capsule by mouth. gentamicin 0.1% 0.1 % cream Apply to affected area. LANTUS SOLOSTAR U-100 INSULIN 100 unit/mL (3 mL) lactulose 10 gram/15 mL solution Take 20 g by mouth. metoprolol succinate ER (TOPROL XL) 50 mg 24 hr tablet Take 1 tablet by mouth once daily. pantoprazole DR (PROTONIX) 20 mg tablet Take 40 mg by mouth. sevelamer carbonate (RENVELA) 800 mg tablet Take 1,600 mg by mouth. No current facility-administered medications for this visit. ALLERGIES No Known Allergies Objective: Patient presents nonweightbearing to left leg. Dressing is dry, clean, and intact with minimal strike through noted. Pt visit completed with aid of bolivian interpretor. Problem focus examination to the left lower extremity: Incision site is well coapted without evidence of dehiscence. Mild erythema and edema surrounding surgical site. No drainage. No lymphadenopathy. No lymphangitis. No surrounding cellulitis. No signs of infection. Appropriate pain to palpation of the surgical site lateral ankle. No pain medially or anteriorly. Patient has no pain to palpation of calf. The calf is soft, supple and nontender without evidence of DVT. Negative Joyce's test. Satisfactory alignment is noted. Pedal pulses are palpable. Capillary refill time is less than three seconds to all digits. Protective sensation is absent to all pedal sites. Radiographs: 3 views left foot were obtained and evaluated. Radiographic evaluation: Evidence of previous ORIF left ankle fracture. Hardware intact without breakage or loosening noted. Ankle mortise WNL. Fibula out to length. Assessment: Satisfactory post-operative progress Plan: The patient was educated on clinical examination findings, postoperative prognosis and protocol. All questions were answered to patient's apparent satisfaction. - Bandage removed and new dressing applied. - Sutures removed today. - Tubigrip and KEV wrap applied. - Start use of boot. Remove boot twice daily for ROM exercises. - Patient to continue nonweightbearing to the operative extremity. - May shower but no soaking - Instructed patient to contact the office if the dressing becomes wet to arrange for a change. Follow up 2 weeks with xrays [facility] History of Present illness Narrative* Kali Gibson DPM - 09/04/2024 1:10 PM EDT DOS: 08/21/24 POD: 14 days POV: 2 Procedure: S/p ORIF left ankle fracture This 73 year old male presents for a post op visit. Patient states they are doing well. Pain is well controlled by [place]. Just taking as needed at this time. He is currently using prescribed analgesics and does not require a refill. Has been nonweightbearing to the left lower extremity. Denies any current nausea, vomiting, fever, chills, shortness of breath, chest pain or calf pain. Denies any other pedal complaints PAST MEDICAL HISTORY Diagnosis Date Abnormal stress test Ankle fracture 07/2024 left CKD (chronic kidney disease), stage IV (HCC) Diabetes mellitus (HCC) Type 1 Diabetic polyneuropathy (HCC) Essential hypertension Hypercholesteremia Hyperparathyroidism (HCC) Hypotension Known medical problems peritoneal dialysis Known medical problems edema Known medical problems hyperlipidemia Pacemaker 01/2024 Summa placed for sick sinus syndrome Vitamin D deficiency Current Outpatient Medications Medication Sig atorvastatin (LIPITOR) 20 mg tablet Take 20 mg by mouth. TRIPHROCAPS 1 mg capsule Take 1 capsule by mouth once daily. calcitriol (ROCALTROL) 0.5 mcg capsule Take 0.5 mcg by mouth. docusate sodium (COLACE) 100 mg capsule Take 100 mg by mouth. felodipine ER (PLENDIL) 10 mg 24 hr tablet Take 10 mg by mouth. fenofibrate (LOFIBRA) 200 mg capsule Take 200 mg by mouth. ferrous sulfate 325 mg (65 mg iron) tablet Take 325 mg by mouth. gabapentin (NEURONTIN) 100 mg capsule Take 1 capsule by mouth. gentamicin 0.1% 0.1 % cream Apply to affected area. LANTUS SOLOSTAR U-100 INSULIN 100 unit/mL (3 mL) lactulose 10 gram/15 mL solution Take 20 g by mouth. metoprolol succinate ER (TOPROL XL) 50 mg 24 hr tablet Take 1 tablet by mouth once daily. pantoprazole DR (PROTONIX) 20 mg tablet Take 40 mg by mouth. sevelamer carbonate (RENVELA) 800 mg tablet Take 1,600 mg by mouth. No current facility-administered medications for this visit. ALLERGIES No Known Allergies Objective: Patient presents nonweightbearing to left leg. Dressing is dry, clean, and intact with minimal strike through noted. Pt visit completed with aid of bolivian interpretor. Problem focus examination to the left lower extremity: Incision site is well coapted without evidence of dehiscence. Mild erythema and edema surrounding surgical site. No drainage. No lymphadenopathy. No lymphangitis. No surrounding cellulitis. No signs of infection. Appropriate pain to palpation of the surgical site lateral ankle. No pain medially or anteriorly. Patient has no pain to palpation of calf. The calf is soft, supple and nontender without evidence of DVT. Negative Joyce's test. Satisfactory alignment is noted. Pedal pulses are palpable. Capillary refill time is less than three seconds to all digits. Protective sensation is absent to all pedal sites. Radiographs: 3 views left foot were obtained and evaluated. Radiographic evaluation: Evidence of previous ORIF left ankle fracture. Hardware intact without breakage or loosening noted. Ankle mortise WNL. Fibula out to length. Assessment: Satisfactory post-operative progress Plan: The patient was educated on clinical examination findings, postoperative prognosis and protocol. All questions were answered to patient's apparent satisfaction. - Bandage removed and new dressing applied. - Sutures removed today. - Tubigrip and KEV wrap applied. - Start use of boot. Remove boot twice daily for ROM exercises. - Patient to continue nonweightbearing to the operative extremity. - May shower but no soaking - Instructed patient to contact the office if the dressing becomes wet to arrange for a change. Follow up 2 weeks with xrays Kali Gibson DPM documented in [facility] encounterC[facility]25 NoteHNO ID: [id number] Author: KALI GIBSON DPM Service: ? Author Type: Physician Type: Progress Notes Filed: 08/28/2024 17:12 Note Text: DOS: 08/21/24 POD: 7 days POV: 1 Procedure: S/p ORIF left ankle fracture This 73 year old male presents for a post op visit. Patient states they are doing well. Pain is well controlled by [place]. Noé reports occasional mild pulling sensations at the surgical site but denies significant pain. He is currently using prescribed analgesics and does not require a refill. Has been nonweightbearing to the left lower extremity. Denies any current nausea, vomiting, fever, chills, shortness of breath, chest pain or calf pain. Denies any other pedal complaints PAST MEDICAL HISTORY Diagnosis Date Abnormal stress test Ankle fracture 07/2024 left CKD (chronic kidney disease), stage IV (HCC) Diabetes mellitus (HCC) Type 1 Diabetic polyneuropathy (HCC) Essential hypertension Hypercholesteremia Hyperparathyroidism (HCC) Hypotension Known medical problems peritoneal dialysis Known medical problems edema Known medical problems hyperlipidemia Pacemaker 01/2024 Summa placed for sick sinus syndrome Vitamin D deficiency Current Outpatient Medications Medication Sig HYDROcodone-acetaminophen (NORCO) 5-325 mg per tablet Take 1 tablet by mouth every 8 hours as needed for pain for up to 7 days. atorvastatin (LIPITOR) 20 mg tablet Take 20 mg by mouth. TRIPHROCAPS 1 mg capsule Take 1 capsule by mouth once daily. calcitriol (ROCALTROL) 0.5 mcg capsule Take 0.5 mcg by mouth. docusate sodium (COLACE) 100 mg capsule Take 100 mg by mouth. felodipine ER (PLENDIL) 10 mg 24 hr tablet Take 10 mg by mouth. fenofibrate (LOFIBRA) 200 mg capsule Take 200 mg by mouth. ferrous sulfate 325 mg (65 mg iron) tablet Take 325 mg by mouth. gabapentin (NEURONTIN) 100 mg capsule Take 1 capsule by mouth. gentamicin 0.1% 0.1 % cream Apply to affected area. LANTUS SOLOSTAR U-100 INSULIN 100 unit/mL (3 mL) lactulose 10 gram/15 mL solution Take 20 g by mouth. metoprolol succinate ER (TOPROL XL) 50 mg 24 hr tablet Take 1 tablet by mouth once daily. pantoprazole DR (PROTONIX) 20 mg tablet Take 40 mg by mouth. sevelamer carbonate (RENVELA) 800 mg tablet Take 1,600 mg by mouth. No current facility-administered medications for this visit. ALLERGIES No Known Allergies Objective: Patient presents nonweightbearing to left leg. Dressing is dry, clean, and intact with normal strike through noted. Pt visit completed with aid of bolivian interpretor. Problem focus examination to the left lower extremity: Incision site is well coapted without evidence of dehiscence. Mild erythema and edema surrounding surgical site. No drainage. No lymphadenopathy. No lymphangitis. No surrounding cellulitis. No signs of infection. Appropriate pain to palpation of the surgical site lateral ankle. Minimal pain medially or anteriorly. Patient has no pain to palpation of calf. The calf is soft, supple and nontender without evidence of DVT. Negative Joyce's test. Satisfactory alignment is noted. Pedal pulses are palpable. Capillary refill time is less than three seconds to all digits. Protective sensation is absent to all pedal sites. Assessment: Satisfactory post-operative progress Plan: The patient was educated on clinical examination findings, postoperative prognosis and protocol. All questions were answered to patient's apparent satisfaction. - Bandage removed and new dressing applied. - Well padded posterior splint applied. - Patient to continue nonweightbearing to the operative extremity. - Advised patient to keep the splint dry; recommended use of a cast protector for showering. - Instructed patient to contact the office if the dressing becomes wet to arrange for a change. Follow up 1 week for possible suture removal. [facility] History of Present illness Narrative* Kali Gibson DPM - 08/28/2024 10:17 AM EDT DOS: 08/21/24 POD: 7 days POV: 1 Procedure: S/p ORIF left ankle fracture This 73 year old male presents for a post op visit. Patient states they are doing well. Pain is well controlled by [place]. Noé reports occasional mild pulling sensations at the surgical site but denies significant pain. He is currently using prescribed analgesics and does not require a refill. Has been nonweightbearing to the left lower extremity. Denies any current nausea, vomiting, fever, chills, shortness of breath, chest pain or calf pain. Denies any other pedal complaints PAST MEDICAL HISTORY Diagnosis Date Abnormal stress test Ankle fracture 07/2024 left CKD (chronic kidney disease), stage IV (HCC) Diabetes mellitus (HCC) Type 1 Diabetic polyneuropathy (HCC) Essential hypertension Hypercholesteremia Hyperparathyroidism (HCC) Hypotension Known medical problems peritoneal dialysis Known medical problems edema Known medical problems hyperlipidemia Pacemaker 01/2024 [place] placed for sick sinus syndrome Vitamin D deficiency Current Outpatient Medications Medication Sig HYDROcodone-acetaminophen (NORCO) 5-325 mg per tablet Take 1 tablet by mouth every 8 hours as needed for pain for up to 7 days. atorvastatin (LIPITOR) 20 mg tablet Take 20 mg by mouth. TRIPHROCAPS 1 mg capsule Take 1 capsule by mouth once daily. calcitriol (ROCALTROL) 0.5 mcg capsule Take 0.5 mcg by mouth. docusate sodium (COLACE) 100 mg capsule Take 100 mg by mouth. felodipine ER (PLENDIL) 10 mg 24 hr tablet Take 10 mg by mouth. fenofibrate (LOFIBRA) 200 mg capsule Take 200 mg by mouth. ferrous sulfate 325 mg (65 mg iron) tablet Take 325 mg by mouth. gabapentin (NEURONTIN) 100 mg capsule Take 1 capsule by mouth. gentamicin 0.1% 0.1 % cream Apply to affected area. LANTUS SOLOSTAR U-100 INSULIN 100 unit/mL (3 mL) lactulose 10 gram/15 mL solution Take 20 g by mouth. metoprolol succinate ER (TOPROL XL) 50 mg 24 hr tablet Take 1 tablet by mouth once daily. pantoprazole DR (PROTONIX) 20 mg tablet Take 40 mg by mouth. sevelamer carbonate (RENVELA) 800 mg tablet Take 1,600 mg by mouth. No current facility-administered medications for this visit. ALLERGIES No Known Allergies Objective: Patient presents nonweightbearing to left leg. Dressing is dry, clean, and intact with normal strike through noted. Pt visit completed with aid of bolivian interpretor. Problem focus examination to the left lower extremity: Incision site is well coapted without evidence of dehiscence. Mild erythema and edema surrounding surgical site. No drainage. No lymphadenopathy. No lymphangitis. No surrounding cellulitis. No signs of infection. Appropriate pain to palpation of the surgical site lateral ankle. Minimal pain medially or anteriorly. Patient has no pain to palpation of calf. The calf is soft, supple and nontender without evidence of DVT. Negative Joyce's test. Satisfactory alignment is noted. Pedal pulses are palpable. Capillary refill time is less than three seconds to all digits. Protective sensation is absent to all pedal sites. Assessment: Satisfactory post-operative progress Plan: The patient was educated on clinical examination findings, postoperative prognosis and protocol. All questions were answered to patient's apparent satisfaction. - Bandage removed and new dressing applied. - Well padded posterior splint applied. - Patient to continue nonweightbearing to the operative extremity. - Advised patient to keep the splint dry; recommended use of a cast protector for showering. - Instructed patient to contact the office if the dressing becomes wet to arrange for a change. Follow up 1 week for possible suture removal. Kali Gibson DPM [facility] NoteHNO ID: [id number] Author: RODRIGUEZ KIM RN Service: Nursing Author Type: Registered Nurse Type: Nursing Progress Note Filed: 08/21/2024 13:01 Note Text: Xrays [facility]04-04-2025 NoteHNO ID: [id number] Author: LUDIVINA PAYTON MD Service: Anesthesiology Author Type: Anesthesiologist Type: Anesthesia Procedure Notes Filed: 08/21/2024 10:23 Note Text: ANESTHESIOLOGY PROCEDURE NOTE Peripheral Nerve Block General Information Procedure Start Time/Medication Administration: 08/21/2024 9:45 AM Procedure End time: 08/21/2024 9:55 AM Patient location during procedure: pre-op Timeout Performed Pre-procedure: timeout performed Consent Obtained: Yes Patient identity confirmed: arm 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, 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, patient and family Reason for block: post-op pain management/at surgeon's request and primary surgical anesthetic Staffing Anesthesiologist: Ludivina Payton MD Performed by: anesthesiologist Preparation Sterility Preparation: hand hygiene performed prior to procedure, surgical cap used, mask used, skin prep agent completely dried prior to procedure Site Prep: Chloraprep Pre-Procedure Neuro Exam Location: [facility] Procedure Details Patient Position: supine Monitoring: Pulse OX, EKG and NIBP Block Type Lower Extremity: popliteal and distal femoral (adductor canal) Laterality: left Injection Technique: single-shot Ultrasound Guided: Yes Image in Chart: no Local Infiltration: Yes Needle Needle Type: echogenic Needle Gauge: 21 G Needle Length: 100 mm Needle Localization: anatomical landmarks and ultrasound Assessment Injection assessment: negative aspiration, no paresthesia on injection, incremental injection and local visualized surrounding nerve on ultrasound Medications Administered midazolam (PF) injection (VERSED) - INTRAVENOUS 2 mg - 08/21/2024 9:45:00 AM ropivacaine (PF) 5 mg/mL (0.5 %) injection (NAROPIN) - peripheral nerve block 20 mL - 08/21/2024 9:45:00 AM SIGNATURE: Ludivina Payton MD PATIENT NAME: Noé Hughes DATE: August 21, 2024 TIME: 10:22 AM [id number] Tele[facility] encounter Note* Telephone Encounter - [facility] Shanti [place] - 08/20/2024 7:54 AM EDT Spoke with daughter to confirm surgery for 08/21/24 at 8am arriving at 6am NPO midnight [facility]04-[facility] Miscellaneous Notes* Telephone Encounter - Jaclyn Shanti [place] - 08/20/2024 7:54 AM EDT Spoke with daughter to confirm surgery for 08/21/24 at 8am arriving at 6am NPO midnight [facility] documented in this encounterC[facility]03-26-2025 NoteHNO ID: [id number] Author: KALI GIBSON DPM Service: ? Author Type: Physician Type: Progress Notes Filed: 08/12/2024 23:11 Note Text: CC: left ankle injury HPI: This 73 year old male with PMH indicated below presents today for left ankle injury. Patient presents with family member today. Patient declined translation services and translation was provided by family. Patient states that injuried left ankle on 07/24 but did present to urgent care until 07/27. He presented to urgent care where x-rays were taken and patient was told that broke their ankle and was placed in boot. He then presented to PCP who took follow-up radiographs and due to displacement was referred here for surgical evaluation. Patient states has not applied weight to the injured extremity since that time. Pain is mild, rated as 2/10. Patient admits to to numbness and tingling. denies use of analgesics. Denies any current nausea, vomiting, fever, chills, shortnessof breath, chest pain or calf pain. Denies any other pedal complaints. Patient has a history of Type 1 diabetes with end-stage renal disease for which he does peritoneal dialysis. He is planning to travel to [facility] in [place] on Saturday for evaluation for potential renal transplant. He will return on 08/19/24. Allen Jackson MD HbA1c on 07/13/24: 6.5 PAST MEDICAL HISTORY Diagnosis Date Diabetes mellitus (HCC) Type 1 Essential hypertension Current Outpatient Medications Medication Sig Dispense Refill atorvastatin (LIPITOR) 20 mg tablet Take 20 mg by mouth. TRIPHROCAPS 1 mg capsule Take 1 capsule by mouth once daily. calcitriol (ROCALTROL) 0.5 mcg capsule Take 0.5 mcg by mouth. docusate sodium (COLACE) 100 mg capsule Take 100 mg by mouth. felodipine ER (PLENDIL) 10 mg 24 hr tablet Take 10 mg by mouth. fenofibrate (LOFIBRA) 200 mg capsule Take 200 mg by mouth. ferrous sulfate 325 mg (65 mg iron) tablet Take 325 mg by mouth. gabapentin (NEURONTIN) 100 mg capsule Take 1 capsule by mouth. gentamicin 0.1% 0.1 % cream Apply to affected area. LANTUS SOLOSTAR U-100 INSULIN 100 unit/mL (3 mL) lactulose 10 gram/15 mL solution Take 20 g by mouth. metoprolol succinate ER (TOPROL XL) 50 mg 24 hr tablet Take 1 tablet by mouth once daily. pantoprazole DR (PROTONIX) 20 mg tablet Take 40 mg by mouth. sevelamer carbonate (RENVELA) 800 mg tablet Take 1,600 mg by mouth. No current facility-administered medications for this visit. ALLERGIES No Known Allergies PAST SURGICAL HISTORY Procedure Laterality Date ANESTH,PACEMAKER INSERTION Social History Tobacco Use Smoking status: Never Smokeless tobacco: Never Vaping Use Vaping status: Never Used Substance Use Topics Alcohol use: Yes Drug use: Yes History reviewed. No pertinent family history. REVIEW OF SYSTEMS See tech note MSK: + as noted in HPI. Physical examination: On General Observation: Patient is a pleasant, cooperative, well developed 73 year old adult male. The patient is alert and oriented to time, place and person. Patient has normal affect and mood. Resp 20 Ht 172.7 cm (5' 8) Wt 67.1 kg (148 lb) BMI 22.50 kg/m? Patient presents in fracture boot today NWB in wheelchair. Presents with family member. Left LE Vascular: DP and PT pulses are palpable. CFT less than 3 seconds to all digits. Skin temperature is warm to warm from proximal to distal . Hair growth is noted. Positive mild edema noted overlying global left ankle. Neuro: Light touch intact to left. Protective sensation absent at all pedal sites via [place] Hay 5.07 monofilament left. Derm: Skin appears thin. Webspaces 1-4 clean, dry, intact bilateral. No rashes, subcutaneous nodules, or open lesions noted. No hyperkeratotic tissue. + ecchymosis noted to lateral left ankle. No fracture blisters noted. Healing dorsal abrasion over 2nd digit dorsally without erythema or signs of infection.. Musc: Ecchymosis is Absent to the left. Edema is mild over the lateral malleolus. Edema is mild over the medial malleolus. Palpation to the medial ankle is non-painful. No high fibular pain is noted. There is pain to palpation of the syndesmosis or with external rotation of the foot at the ankle joint. Pain to palpation is noted overlying the lateral malleolus. Pain to palpation is noted overlying the ATFL. The peroneals appear to be intact and are not tender. No pain to the fifth metatarsal base. No pain to the medial aspect of the midfoot or navicular tuberosity. No pain to palpation anterior calcaneal process. Ankle stability testing deferred due to known fracture. Radiographs: 1 stress view of the left ankle were taken today. Previous ankle xrays were reviewed from 08/10/24 and 07/28/24. Radiographic impression: Complete extra-articular displaced, oblique card B fracture noted to lateral malleolus. Fibular appears shortened. There is medial clear space widening noted on stress view. There is not a medial (more content not included)...[facility]03-[facility] History of Present illness Narrative* Kali GibsonSHANTEL - 08/12/2024 10:34 AM EDT CC: left ankle injury HPI: This 73 year old male with PMH indicated below presents today for left ankle injury. Patient presents with family member today. Patient declined translation services and translation was providedby family. Patient states that injuried left ankle on 07/24 but did present to urgent care until 07/27. He presented to urgent care where x-rays were taken and patient was told that broke their ankle and was placed in boot. He then presented to PCP who took follow-up radiographs and due to displacement was referred here for surgical evaluation. Patient states has not applied weight to the injured extremity since that time. Pain is mild, rated as 2/10. Patient admits to to numbness and tingling. denies use of analgesics. Denies any current nausea, vomiting, fever, chills, shortness of breath, chest pain or calf pain. Denies any other pedal complaints. Patient has a history of Type 1 diabetes with end-stage renal disease for which he does peritoneal dialysis. He is planning to travel to [facility] in [place] on Saturday for evaluation for potential renal transplant. He will return on 08/19/24. Allen Jackson MD HbA1c on 07/13/24: 6.5 PAST MEDICAL HISTORY Diagnosis Date Diabetes mellitus (HCC) Type 1 Essential hypertension Current Outpatient Medications Medication Sig Dispense Refill atorvastatin (LIPITOR) 20 mg tablet Take 20 mg by mouth. TRIPHROCAPS 1 mg capsule Take 1 capsule by mouth once daily. calcitriol (ROCALTROL) 0.5 mcg capsule Take 0.5 mcg by mouth. docusate sodium (COLACE) 100 mg capsule Take 100 mg by mouth. felodipine ER (PLENDIL) 10 mg 24 hr tablet Take 10 mg by mouth. fenofibrate (LOFIBRA) 200 mg capsule Take 200 mg by mouth. ferrous sulfate 325 mg (65 mg iron) tablet Take 325 mg by mouth. gabapentin (NEURONTIN) 100 mg capsule Take 1 capsule by mouth. gentamicin 0.1% 0.1 % cream Apply to affected area. LANTUS SOLOSTAR U-100 INSULIN 100 unit/mL (3 mL) lactulose 10 gram/15 mL solution Take 20 g by mouth. metoprolol succinate ER (TOPROL XL) 50 mg 24 hr tablet Take 1 tablet by mouth once daily. pantoprazole DR (PROTONIX) 20 mg tablet Take 40 mg by mouth. sevelamer carbonate (RENVELA) 800 mg tablet Take 1,600 mg by mouth. No current facility-administered medications for this visit. ALLERGIES No Known Allergies PAST SURGICAL HISTORY Procedure Laterality Date ANESTH,PACEMAKER INSERTION Social History Tobacco Use Smoking status: Never Smokeless tobacco: Never Vaping Use Vaping status: Never Used Substance Use Topics Alcohol use: Yes Drug use: Yes History reviewed. No pertinent family history. REVIEW OF SYSTEMS See tech note MSK: + as noted in HPI. Physical examination: On General Observation: Patient is a pleasant, cooperative, well developed 73 year old adult male. The patient is alert and oriented to time, place and person. Patient has normal affect and mood. Resp 20 Ht 172.7 cm (5' 8) Wt 67.1 kg (148 lb) BMI 22.50 kg/m Patient presents in fracture boot today NWB in wheelchair. Presents with family member. Left LE Vascular: DP and PT pulses are palpable. CFT less than 3 seconds to all digits. Skin temperature iswarm to warm from proximal to distal . Hair growth is noted. Positive mild edema noted overlying global left ankle. Neuro: Light touch intact to left. Protective sensation absent at all pedal sites via [place] 5.07 monofilament left. Derm: Skin appears thin. Webspaces 1-4 clean, dry, intact bilateral. No rashes, subcutaneous nodules, or open lesions noted. No hyperkeratotic tissue. + ecchymosis noted to lateral left ankle. No fracture blisters noted. Healing dorsal abrasion over 2nd digit dorsally without erythema or signs of infection.. Musc: Ecchymosis is Absent to the left. Edema is mild over the lateral malleolus. Edema is mild over the medial malleolus. Palpation to the medial ankle is non-painful. No high fibular pain is noted.There is pain to palpation of the syndesmosis or with external rotation of the foot at the ankle joint. Pain to palpation is noted overlying the lateral malleolus. Pain to palpation is noted overlying the ATFL. The peroneals appear to be intact and are not tender. No pain to the fifth metatarsal base. No pain to the medial aspect of the midfoot or navicular tuberosity. No pain to palpation anterior calcaneal process. Ankle stability testing deferred due to known fracture. Radiographs: 1 stress view of the left ankle were taken today. Previous ankle xrays were reviewed from 08/10/24 and 07/28/24. Radiographic impression: Complete extra-articular displaced, oblique card B fracture noted to lateral malleolus. Fibular appears shortened. There is medial clear space widening noted on stress view.There is not a medial malleolar fracture. Small posterior malleolar fracture noted on lateral viewsfrom 08/11/24. + vascular calcifications noted. 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 Plan: A comprehensive history and physical examination were preformed. The patient was educated on clinical and radiographic findings, diagnosis and treatment plans. Patient state that he understands all that has been explained and all questions were answered to his apparent satisfaction. Etiology and tx options, both conservative and surgical were discussed in detail with the pt. Patient with unstable trimalleolar ankle fracture of the left ankle. - Advised given injury, believe he would most benefit from open reduction internal fixation of leftankle fracture. - I have educated the patient on the details of the procedures as well as medically reasonable risks, benefits, alternatives and prognosis. I also educated the patient on perioperative management including preoperative medical clearance, preoperative physical therapy consultation, postoperative care and rehabilitation, anticipated time to full weightbearing, return to shoes and maximum medical improvement, Lastly I educated that patient to their apparent understanding on potential complicationsincluding but not limited to infection, recurrence, over correction or under correction persistent pain, swelling or disability, nerve injury or entrapment, bone and soft tissue healing complications, painful hardware, post-traumatic arthritis, complications with anesthesia and deep venous thrombosis/ pulmonary embolism. -Discussed increased risk of complications due to his DM, neuropathy as well as CKD. Discussed thathas increased risk of infection, wound healing complications, bone healing complications and development of Charcot. Discussed that these complications could result in need for further surgery and potential amputation. Pt states that understands and elects to proceed. Consent signed and placed in chart - Patient is already over 2 weeks post injury. Ideally would fix this week [place] and will not be back until Saturday thus unable to have surgery until following this. -Patient maintained NWB in fracture boot today. -Educated patient on risk of DVT formation with immobilization. - Follow up for surgery following medical clearance. Bennie Schmid MD Patient was seen, evaluated, discussed and treated with the above resident, all lopez components of the exam and treatment were reviewed. I agree with the findings and treatment plan as outlined the above note. Kali Gibson DPM * Casi Zarate LPN - 08/12/2024 9:40 AM EDT REVIEW OF SYSTEMS: GENERAL: Well developed, well nourished. No acute distress PAIN: Negative for pain, history of chronic pain or current treatment for chronic pain conditions CARDIOVASCULAR: Negative for chest pain, leg swelling and palpations. MSK: Negative for joint swelling SKIN: Negative for lesions, rash, itching, metal sensitivity NEURO: Negative for seizure, trauma, numbness/tingling of extremities. ENDOCRINE: Positive for diabetic associated symptoms HEMATOLOGY: Negative for excessive bleeding, clots, bleeding disorders. documented in this encounterC[facility]03-26-2025 NoteHNO ID: [id number] Author: CASI ZARATE LPN Service: ? Author Type: LICENSED NURSE Type: Progress Notes Filed: 08/12/2024 23:11 Note Text: REVIEW OF SYSTEMS: GENERAL: Well developed, well nourished. No acute distress PAIN: Negative for pain, history of chronic pain or current treatment for chronic pain conditions CARDIOVASCULAR: Negative for chest pain, leg swelling and palpations. MSK: Negative for joint swelling SKIN: Negative for lesions, rash, itching, metal sensitivity NEURO: Negative for seizure, trauma, numbness/tingling of extremities. ENDOCRINE: Positive for diabetic associated symptoms HEMATOLOGY: Negative for excessive bleeding, clots, bleeding disorders.[facility]03-25-[facility]25 NoteHNO ID: [id number] Author: KEANU ZARATE, DO Service: ? Author Type: Physician Type: Progress Notes Filed: 08/11/2024 09:33 Note Text: SERVICE DATE: August 11, 2024 PCP: Allen Jackson MD Subjective Patient ID: Noé is a 73 year old male. Chief Complaint: Patient presents with: 2 weeks 4 days post fracture Left distal fibula PAIN EVALUATION 08/11/2024 0900 Pain Level: 2 Pain Location: Ankle-Left Description: Stabbing Frequency: Intermittent Intervention/Comfort measure: -- none HPI Mr. Hughes presents today with his [id number] who is interpreting for him for follow-up of left distal fibula fracture. His [id number] states that he has been weightbearing and using his crutches since last visit. He describes the pain as a level 2 with sometimes sharp stabbing pains and predominantly dull ache. He is getting ready to go to [facility] on Saturday to be evaluated for a kidney transplant at [facility]. Review of Systems There is no problem list on file for this patient. PAST MEDICAL HISTORY Diagnosis Date Diabetes mellitus (HCC) Type 1 Essential hypertension PAST SURGICAL HISTORY Procedure Laterality Date ANESTH,PACEMAKER INSERTION No family history on file. Social History Tobacco Use Smoking status: Never Smokeless tobacco: Never Vaping Use Vaping status: Never Used Substance Use Topics Alcohol use: Yes Drug use: Yes ALLERGIES No Known Allergies MEDICATIONS: atorvastatin (LIPITOR) 20 mg tablet Take 20 mg by mouth. TRIPHROCAPS 1 mg capsule Take 1 capsule by mouth once daily. calcitriol (ROCALTROL) 0.5 mcg capsule Take 0.5 mcg by mouth. docusate sodium (COLACE) 100 mg capsule Take 100 mg by mouth. felodipine ER (PLENDIL) 10 mg 24 hr tablet Take 10 mg by mouth. fenofibrate (LOFIBRA) 200 mg capsule Take 200 mg by mouth. ferrous sulfate 325 mg (65 mg iron) tablet Take 325 mg by mouth. gabapentin (NEURONTIN) 100 mg capsule Take 1 capsule by mouth. gentamicin 0.1% 0.1 % cream Apply to affected area. LANTUS SOLOSTAR U-100 INSULIN 100 unit/mL (3 mL) lactulose 10 gram/15 mL solution Take 20 g by mouth. metoprolol succinate ER (TOPROL XL) 50 mg 24 hr tablet Take 1 tablet by mouth once daily. pantoprazole DR (PROTONIX) 20 mg tablet Take 40 mg by mouth. sevelamer carbonate (RENVELA) 800 mg tablet Take 1,600 mg by mouth. Allergies, medications, past surgical history, family history and past medical history were reviewed per this encounter. Objective Ortho Exam 73-year-old male pleasant cooperative exam no acute distress. Evaluation of the left leg shows mild swelling around the ankle with no redness or warmth to touch. There is tenderness with palpation over the distal fibula. Review of x-ray shows spiral fracture of the distal fibula extending to the level of the plafond 3 centimeters superiorl there is lateral displacementy. There is more significant on this view than on his initial view. Assessment/Plan ASSESSMENT Diagnosis (S82.832A) Closed fracture of distal end of left fibula, unspecified fracture morphology, initial encounter (primary encounter diagnosis) Plan: KNEE WALKER Office Visit on 08/11/24 KNEE WALKER PLAN Due to lateral displacement with weightbearing view, I recommend surgical consultation. Patient does have comorbid conditions which would potentially complicate surgery. He also has a timeframe he is working with as he will be gone from Saturday through Saturday to be evaluated for kidney transplant at [facility] in [facility]. He is to continue with nonweightbearing, and I wrote an order for a knee walker. FOLLOW-UP: No follow-ups on file. SIGNATURE: Keanu Zarate DO PATIENT NAME: Noé Hughes DATE: August 11, 2024 TIME: 9:18 [facility]03-25-2025 History of Present illness Narrative* Keanu Zarate V, DO - 08/11/2024 9:18 AM EDT Images from the original note were not included. SERVICE DATE: August 11, 2024 PCP: Allen Jackson MD Subjective Patient ID: Noé is a 73 year old male. Chief Complaint: Patient presents with: 2 weeks 4 days post fracture Left distal fibula PAIN EVALUATION 08/11/2024 0900 Pain Level: 2 Pain Location: Ankle-Left Description: Stabbing Frequency: Intermittent Intervention/Comfort measure: -- none HPI Mr. Hughes presents today with his leweexjv-en-gsp who is interpreting for him for follow-up of left distal fibula fracture. His xtsyxhqd-zz-gda states that he has been weightbearing and using his crutches since last visit. He describes the pain as a level 2 with sometimes sharp stabbing pains and predominantly dull ache. He is getting ready to go to [facility] on Saturday to be evaluated for a kidney transplantat [facility]. Review of Systems There is no problem list on file for this patient. PAST MEDICAL HISTORY Diagnosis Date Diabetes mellitus (HCC) Type 1 Essential hypertension PAST SURGICAL HISTORY Procedure Laterality Date ANESTH,PACEMAKER INSERTION No family history on file. Social History Tobacco Use Smoking status: Never Smokeless tobacco: Never Vaping Use Vaping status: Never Used Substance Use Topics Alcohol use: Yes Drug use: Yes ALLERGIES No Known Allergies MEDICATIONS: atorvastatin (LIPITOR) 20 mg tablet Take 20 mg by mouth. TRIPHROCAPS 1 mg capsule Take 1 capsule by mouth once daily. calcitriol (ROCALTROL) 0.5 mcg capsule Take 0.5 mcg by mouth. docusate sodium (COLACE) 100 mg capsule Take 100 mg by mouth. felodipine ER (PLENDIL) 10 mg 24 hr tablet Take 10 mg by mouth. fenofibrate (LOFIBRA) 200 mg capsule Take 200 mg by mouth. ferrous sulfate 325 mg (65 mg iron) tablet Take 325 mg by mouth. gabapentin (NEURONTIN) 100 mg capsule Take 1 capsule by mouth. gentamicin 0.1% 0.1 % cream Apply to affected area. LANTUS SOLOSTAR U-100 INSULIN 100 unit/mL (3 mL) lactulose 10 gram/15 mL solution Take 20 g by mouth. metoprolol succinate ER (TOPROL XL) 50 mg 24 hr tablet Take 1 tablet by mouth once daily. pantoprazole DR (PROTONIX) 20 mg tablet Take 40 mg by mouth. sevelamer carbonate (RENVELA) 800 mg tablet Take 1,600 mg by mouth. Allergies, medications, past surgical history, family history and past medical history were reviewed per this encounter. Objective Ortho Exam 73-year-old male pleasant cooperative exam no acute distress. Evaluation of the left leg shows mildswelling around the ankle with no redness or warmth to touch. There is tenderness with palpation over the distal fibula. Review of x-ray shows spiral fracture of the distal fibula extending to the level of the plafond 3 centimeters superiorl there is lateral displacementy. There is more significant on this view than on his initial view. Assessment/Plan ASSESSMENT Diagnosis (S82.688L) Closed fracture of distal end of left fibula, unspecified fracture morphology, initial encounter (primary encounter diagnosis) Plan: KNEE WALKER Office Visit on 08/11/24 KNEE WALKER PLAN Due to lateral displacement with weightbearing view, I recommend surgical consultation. Patient does have comorbid conditions which would potentially complicate surgery. He also has a timeframe he isworking with as he will be gone from Saturday through Saturday to be evaluated for kidney transplant at [facility] in [facility]. He is to continue with nonweightbearing, and I wrote an order for a knee walker. FOLLOW-UP: No follow-ups on file. SIGNATURE: Keanu Zarate DO PATIENT NAME: Noé Hughes DATE: August 11, 2024 TIME: 9:18 AM * Allyn Joshi MA - 08/11/2024 8:57 AM EDT Patient presents with: 2 weeks 4 days post fracture Left distal fibula AMB ROOMING INTAKE FLOWSHEET DATA Pain Pain Level: 2 Pain Location: Ankle-Left Description: Stabbing Frequency: Intermittent Intervention/Comfort measure: (none) Daughter in-law Angela with patient today. States he has been continuing to wear fracture boot non-weight bearing with crutches. X-rays done yesterday. Taking no med's for the pain. [facility] NoteHNO ID: [id number] Author: ALLYN JOSHI MA Service: ? Author Type: Battery Mechanic Type: Progress Notes Filed: 08/11/2024 09:33 Note Text: Patient presents with: 2 weeks 4 days post fracture Left distal fibula AMB ROOMING INTAKE FLOWSHEET DATA Pain Pain Level: 2 Pain Location: Ankle-Left Description: Stabbing Frequency: Intermittent Intervention/Comfort measure: (none) Daughter in-law Angela with patient today. States he has been continuing to wear fracture boot non-weight bearing with crutches. X-rays done yesterday. Taking no med's for the pain.[facility]03-24-2025 History of Present illness Narrative* Freddie Anderson RT(Kobe) - 08/10/2024 9:30 AM EDT Radiology Service Progress Note PATIENT NAME: Noé Hughes DATE OF SERVICE: August 10, 2024 TIME: 9:36 AM PATIENT IDENTITY VERIFICATION COMPLETED USING TWO (2) IDENTIFIERS: Name and Date of confirmedby patient verbally. FALL SCREENING: Has the patient had 2 falls in the last year or 1 fall with injury or currently using an Ambulatory Assistive Device (Walker, Cane, Wheelchair, Crutches, etc.)? No PATIENT GENDER DATA: Assigned male at PATIENT RELEVANT IMPLANT DATA REVIEWED: Not Applicable PATIENT PRESENTS WITH AN IMPLANTABLE OR ATTACHED PLACER MINER: No RADIOLOGY DEPARTMENT: General X-ray: Exam(s) Completed: Lower Extremity X- Ray(s): Ankle, Left and Wt. Bearing PERIPHERAL IV DATA: Not applicable SIGNED BY: JOANNA Hernandez) August 10, 2024 9:36 AM documented in this encounterC[facility]25 NoteHNO ID: [id number] Author: FREDDIE ANDERSON RT(R) Service: ? Author Type: Technologist Type: Progress Notes Filed: 08/10/2024 09:47 Note Text: Radiology Service Progress Note PATIENT NAME: Noé Hughes DATE OF SERVICE: August 10, 2024 TIME: 9:36 AM PATIENT IDENTITY VERIFICATION COMPLETED USING TWO (2) IDENTIFIERS: Name and Date of confirmed by patient verbally. FALL SCREENING: Has the patient had 2 falls in the last year or 1 fall with injury or currently using an Ambulatory Assistive Device (Walker, Cane, Wheelchair, Crutches, etc.)? No PATIENT GENDER DATA: Assigned male at PATIENT RELEVANT IMPLANT DATA REVIEWED: Not Applicable PATIENT PRESENTS WITH AN IMPLANTABLE OR ATTACHED PLACER MINER: No RADIOLOGY DEPARTMENT: General X-ray: Exam(s) Completed: Lower Extremity X-Ray(s): Ankle, Left and Wt. Bearing PERIPHERAL IV DATA: Not applicable SIGNED BY: Freddie Anderson, RT(R) August 10, 2024 9:36 [facility]03-11-2025 NoteHNO ID: [id number] Author: KEANU ZARATE, DO Service: ? Author Type: Physician Type: Progress Notes Filed: 07/28/2024 09:27 Note Text: SERVICE DATE: July 28, 2024 PCP: Allen Jackson MD Subjective Patient ID: Noé is a 73 year old male. Chief Complaint: Patient presents with: Left ankle fracture: Referred by [facility] PAIN EVALUATION 07/28/2024 0905 Pain Level: 7 Pain Location: Ankle-Left Description: Sharp;Stabbing Duration Amount of Time: 4 Duration Units: Days Frequency: Continuous Intervention/Comfort measure: Medication fracture boot HPI Patient presents today for follow-up of left ankle injury. He was taking out the trash 4 days ago when he slipped and fell twisting his left ankle. He had pain and swelling and was unable to weight-bear so he went to the urgent care for evaluation. X-ray shows a spiral fracture of the left fibula. He has been nonweightbearing, using crutches, and in a cam walker boot since that time. His enranikj-nr-bwp is present with him and interpreting for him as he does not speak [place]. Review of Systems There is no problem list on file for this patient. PAST MEDICAL HISTORY Diagnosis Date Diabetes mellitus (HCC) Type 1 Essential hypertension PAST SURGICAL HISTORY Procedure Laterality Date ANESTH,PACEMAKER INSERTION No family history on file. Social History Tobacco Use Smoking status: Never Smokeless tobacco: Never Vaping Use Vaping status: Never Used Substance Use Topics Alcohol use: Yes Drug use: Yes ALLERGIES No Known Allergies MEDICATIONS: atorvastatin (LIPITOR) 20 mg tablet Take 20 mg by mouth. TRIPHROCAPS 1 mg capsule Take 1 capsule by mouth once daily. calcitriol (ROCALTROL) 0.5 mcg capsule Take 0.5 mcg by mouth. docusate sodium (COLACE) 100 mg capsule Take 100 mg by mouth. felodipine ER (PLENDIL) 10 mg 24 hr tablet Take 10 mg by mouth. fenofibrate (LOFIBRA) 200 mg capsule Take 200 mg by mouth. ferrous sulfate 325 mg (65 mg iron) tablet Take 325 mg by mouth. gabapentin (NEURONTIN) 100 mg capsule Take 1 capsule by mouth. gentamicin 0.1% 0.1 % cream Apply to affected area. LANTUS SOLOSTAR U-100 INSULIN 100 unit/mL (3 mL) lactulose 10 gram/15 mL solution Take 20 g by mouth. metoprolol succinate ER (TOPROL XL) 50 mg 24 hr tablet Take 1 tablet by mouth once daily. pantoprazole DR (PROTONIX) 20 mg tablet Take 40 mg by mouth. sevelamer carbonate (RENVELA) 800 mg tablet Take 1,600 mg by mouth. Allergies, medications, past surgical history, family history and past medical history were reviewed per this encounter. Objective Ortho Exam 73-year-old male pleasant cooperative with exam no acute distress. evaluation of the left foot and ankle shows minor tenderness with palpation over the distal fibula. No pain over the proximal fibula. Patient is able to move toes with no restrictions. No focal sensory deficits. X-ray shows spiral fracture distal fibula approximately 3 cm above the tibial plafond with minimal lateral displacement of the distal fragment. Assessment/Plan ASSESSMENT Diagnosis (S82.832A) Closed fracture of distal end of left fibula, unspecified fracture morphology, initial encounter Plan: CONSULT PANEL TO ORTHOPAEDICS Office Visit on 07/28/24 CONSULT PANEL TO ORTHOPAEDICS PLAN I reviewed the x-rays and the injury with the patient and his ebamdoqf-dr-oso. I told him that this is potentially an unstable fracture and needs to be watched closely as it may require surgical consultation. He will remain nonweightbearing and we will repeat x-rays next week with weightbearing views to assess the integrity of the ankle joint. FOLLOW-UP: No follow-ups on file. SIGNATURE: Keanu Zarate DO PATIENT NAME: Noé Hughes DATE: July 28, 2024 TIME: 9:24 [facility]03-11-2025 History of Present illness Narrative* Keanu Zarate V, DO - 07/28/2024 9:24 AM EDT SERVICE DATE: July 28, 2024 PCP: Allen Jackson MD Subjective Patient ID: Noé is a 73 year old male. Chief Complaint: Patient presents with: Left ankle fracture: Referred by [facility] PAIN EVALUATION 07/28/2024 0905 Pain Level: 7 Pain Location: Ankle-Left Description: Sharp;Stabbing Duration Amount of Time: 4 Duration Units: Days Frequency: Continuous Intervention/Comfort measure: Medication fracture boot HPI Patient presents today for follow-up of left ankle injury. He was taking out the trash 4 days ago when he slipped and fell twisting his left ankle. He had pain and swelling and was unable to weight-bear so he went to the urgent care for evaluation. X-ray shows a spiral fracture of the left fibula. He has been nonweightbearing, using crutches, and in a cam walker boot since that time. His dlwqzamu-bc-xlm is present with him and interpreting for him as he does not speak [place]. Review of Systems There is no problem list on file for this patient. PAST MEDICAL HISTORY Diagnosis Date Diabetes mellitus (HCC) Type 1 Essential hypertension PAST SURGICAL HISTORY Procedure Laterality Date ANESTH,PACEMAKER INSERTION No family history on file. Social History Tobacco Use Smoking status: Never Smokeless tobacco: Never Vaping Use Vaping status: Never Used Substance Use Topics Alcohol use: Yes Drug use: Yes ALLERGIES No Known Allergies MEDICATIONS: atorvastatin (LIPITOR) 20 mg tablet Take 20 mg by mouth. TRIPHROCAPS 1 mg capsule Take 1 capsule by mouth once daily. calcitriol (ROCALTROL) 0.5 mcg capsule Take 0.5 mcg by mouth. docusate sodium (COLACE) 100 mg capsule Take 100 mg by mouth. felodipine ER (PLENDIL) 10 mg 24 hr tablet Take 10 mg by mouth. fenofibrate (LOFIBRA) 200 mg capsule Take 200 mg by mouth. ferrous sulfate 325 mg (65 mg iron) tablet Take 325 mg by mouth. gabapentin (NEURONTIN) 100 mg capsule Take 1 capsule by mouth. gentamicin 0.1% 0.1 % cream Apply to affected area. LANTUS SOLOSTAR U-100 INSULIN 100 unit/mL (3 mL) lactulose 10 gram/15 mL solution Take 20 g by mouth. metoprolol succinate ER (TOPROL XL) 50 mg 24 hr tablet Take 1 tablet by mouth once daily. pantoprazole DR (PROTONIX) 20 mg tablet Take 40 mg by mouth. sevelamer carbonate (RENVELA) 800 mg tablet Take 1,600 mg by mouth. Allergies, medications, past surgical history, family history and past medical history were reviewed per this encounter. Objective Ortho Exam 73-year-old male pleasant cooperative with exam no acute distress. evaluation of the left foot and ankle shows minor tenderness with palpation over the distal fibula. No pain over the proximal fibula. Patient is able to move toes with no restrictions. No focal sensory deficits. X-ray shows spiral fracture distal fibula approximately 3 cm above the tibial plafond with minimal lateral displacement of the distal fragment. Assessment/Plan ASSESSMENT Diagnosis (S82.733S) Closed fracture of distal end of left fibula, unspecified fracture morphology, initial encounter Plan: CONSULT PANEL TO ORTHOPAEDICS Office Visit on 07/28/24 CONSULT PANEL TO ORTHOPAEDICS PLAN I reviewed the x-rays and the injury with the patient and his mklgpeja-rw-ziy. I told him that thisis potentially an unstable fracture and needs to be watched closely as it may require surgical consultation. He will remain nonweightbearing and we will repeat x-rays next week with weightbearing views to assess the integrity of the ankle joint. FOLLOW-UP: No follow-ups on file. SIGNATURE: Keanu Zarate DO PATIENT NAME: Noé Hughes DATE: July 28, 2024 TIME: 9:24 AM * Allyn Joshi MA - 07/28/2024 9:01 AM EDT Patient presents with: Left ankle fracture: Referred by [facility] INTAKE FLOWSHEET DATA Pain Pain Level: 7 Pain Location: Ankle-Left Description: Sharp, Stabbing Duration Amount of Time: 4 Duration Units: Days Frequency: Continuous Intervention/Comfort measure: Medication (fracture boot) Daughter in-law Angela with patient today. States patient fell taking out the trash on Saturday. Seenin Urgent care yesterday. Given crutches to ambulate and fracture boot. Has been wearing all the time except to sleep and shower. Taking Tylenol for the pain and helps. documented in this encounterC[facility]25 NoteHNO ID: [id number] Author: ALLYN JOSHI MA Service: ? Author Type: Battery Mechanic Type: Progress Notes Filed: 07/28/2024 09:27 Note Text: Patient presents with: Left ankle fracture: Referred by [facility] AMB ROOMING INTAKE FLOWSHEET DATA Pain Pain Level: 7 Pain Location: Ankle-Left Description: Sharp, Stabbing Duration Amount of Time: 4 Duration Units: Days Frequency: Continuous Intervention/Comfort measure: Medication (fracture boot) Daughter in-law Angela with patient today. States patient fell taking out the trash on Saturday. Seen in Urgent care yesterday. Given crutches to ambulate and fracture boot. Has been wearing all the time except to sleep and shower. Taking Tylenol for the pain and helps.[facility]03-10-2025 Instructions * Patient Instructions* Mere Brunner APRN.HOPPER FEEDER - 07/27/2024 11:07 AM EDT ASSESSMENT/PLAN: 1. Injury of left ankle, initial encounter - ICD9: 959.7, ICD10: S99.912A (primary diagnosis) - XR ANKLE GENERAL 3V AP/LAT/OBL LEFT 2. Foot injury, left, initial encounter - ICD9: 959.7, ICD10: S99.922A - XR FOOT GENERAL 3V AP/LAT/OBL LEFT IMPRESSION: Acute distal fibular fracture with associated soft tissue swelling as described. Ledge Man: VALERIE Transcribe Date/Time: Jul 27 2024 10:57A Dictated by : BÁRBARA FUENTES MD 3. Closed fracture of distal end of left fibula, unspecified fracture morphology, initial encounter- ICD9: 824.8, ICD10: S82.832A - CONSULT PANEL TO ORTHOPAEDICS - patient placed in walking boot and advised to use crutches and wear boot until seen by orthopedics. - elevate foot, limit walking until seen by orthopedics. - may take tylenol for pain. - may take boot off and apply ice pack to swollen area. - Follow-up with your PCP in 3-5 days if symptoms have not improved or sooner if symptoms worsen - Discussed red flags and need for immediate medical evaluation if any occur. - Discussed supportive care treatment with fluids, rest and analgesia. - Discussed expected course of illness Mere Brunner APRN.HOPPER FEEDER documented in this encounterC[facility]03-10-2025 History of Present illness Narrative* Venecia Cam RT(R) - 07/27/2024 10:40 AM EDT Radiology Service Progress Note PATIENT NAME: Noé Hughes DATE OF SERVICE: July 27, 2024 TIME: 10:44 AM PATIENT IDENTITY VERIFICATION COMPLETED USING TWO (2) IDENTIFIERS: Name and Date of confirmedby patient verbally. FALL SCREENING: Has the patient had 2 falls in the last year or 1 fall with injury or currently using an Ambulatory Assistive Device (Walker, Cane, Wheelchair, Crutches, etc.)? No PATIENT GENDER DATA: Assigned male at PATIENT RELEVANT IMPLANT DATA REVIEWED: Yes PATIENT PRESENTS WITH AN IMPLANTABLE OR ATTACHED PLACER MINER: No RADIOLOGY DEPARTMENT: General X-ray: Exam(s) Completed: Lower Extremity X- Ray(s): Ankle, Left and Foot, Left PERIPHERAL IV DATA: Not applicable SIGNED BY: RT Mamta(R) July 27, 2024 10:44 AM documented in this encounterCleveland [facility]03-10-2025 NoteHNO ID: [id number] Author: VENECIA CAM RT(Kobe) Service: ? Author Type: Solar Sales Representative Type: Progress Notes Filed: 07/27/2024 10:55 Note Text: Radiology Service Progress Note PATIENT NAME: Noé Hughes DATE OF SERVICE: July 27, 2024 TIME: 10:44 AM PATIENT IDENTITY VERIFICATION COMPLETED USING TWO (2) IDENTIFIERS: Name and Date of confirmed by patient verbally. FALL SCREENING: Has the patient had 2 falls in the last year or 1 fall with injury or currently using an Ambulatory Assistive Device (Walker, Cane, Wheelchair, Crutches, etc.)? No PATIENT GENDER DATA: Assigned male at PATIENT RELEVANT IMPLANT DATA REVIEWED: Yes PATIENT PRESENTS WITH AN IMPLANTABLE OR ATTACHED PLACER MINER: No RADIOLOGY DEPARTMENT: General X-ray: Exam(s) Completed: Lower Extremity X-Ray(s): Ankle, Left and Foot, Left PERIPHERAL IV DATA: Not applicable SIGNED BY: RT Mamta(R) July 27, 2024 10:44 [facility]03-10-2025 NoteHNO ID: [id number] Author: MERE BRUNNER APRN.HOPPER FEEDER Service: ? Author Type: Nurse Practitioner Type: Progress Notes Filed: 07/27/2024 11:43 Note Text: [facility] Subjective Noé Hughes is a 73 year old male. Patient presents with: Pain (foot): left foot pain and swelling with bruising x 3 days, twisted and fell Pain (foot) Pertinent negatives include no fever. Noé Hughes is a 73 year old male who presents with left foot and ankle swelling and pain. He states he fell on his butt Saturday. He rates his pain 10/10. He has been applying hot packs to the areas. He presents with his daughter in law who is interpreting for him. Noé does not speak [place] and declines use of secretary of police. Review of Systems Constitutional: Negative for chills and fever. Musculoskeletal: Positive for joint swelling. See HPI Skin: Positive for color change. Objective BP 162/84 Pulse 74 Temp 36.9 ?C (98.5 ?F) Resp 16 Wt 67.5 kg (148 lb 13 oz) SpO2 97% Physical Exam Vitals and nursing note reviewed. Constitutional: Appearance: Normal appearance. Musculoskeletal: General: Swelling, tenderness and signs of injury present. No deformity. Left foot: Decreased range of motion. Normal capillary refill. Swelling and tenderness present. No deformity, bony tenderness or crepitus. Normal pulse. Legs: Skin: General: Skin is warm and dry. Capillary Refill: Capillary refill takes less than 2 seconds. Findings: Bruising and erythema present. No rash. Neurological: Mental Status: He is alert. ASSESSMENT/PLAN: 1. Injury of left ankle, initial encounter - ICD9: 959.7, ICD10: S99.912A (primary diagnosis) - XR ANKLE GENERAL 3V AP/LAT/OBL LEFT 2. Foot injury, left, initial encounter - ICD9: 959.7, ICD10: S99.922A - XR FOOT GENERAL 3V AP/LAT/OBL LEFT IMPRESSION: Acute distal fibular fracture with associated soft tissue swelling as described. Ledge Man: VALERIE Transcribe Date/Time: Jul 27 2024 10:57A Dictated by : BÁRBARA FUENTES MD 3. Closed fracture of distal end of left fibula, unspecified fracture morphology, initial encounter - ICD9: 824.8, ICD10: S82.832A - CONSULT PANEL TO ORTHOPAEDICS - patient placed in walking boot and advised to use crutches and wear boot until seen by orthopedics. - elevate foot, limit walking until seen by orthopedics. - may take tylenol for pain. - may take boot off and apply ice pack to swollen area. - Follow-up with your PCP in 3-5 days if symptoms have not improved or sooner if symptoms worsen - Discussed red flags and need for immediate medical evaluation if any occur. - Discussed supportive care treatment with fluids, rest and analgesia. - Discussed expected course of illness Mere Brunner APRN.HOPPER FEEDER History and Record Review Clinical information obtained from an independent historian. History obtained from or confirmed by: family member. External record(s) reviewed: prior labs/imaging. Findings from review of prior labs/imaging: Previous Renal Function Panel Reviewed No results within last 365 days. Differential Diagnoses - distal fibular fracture is more likely for the following reason(s): suggested by [facility]P and consistent with imaging - ankle sprain Management I performed an independent interpretation of the following:imaging Imaging: My interpretation is Acute distal fibular fracture with associated soft tissue swelling Additional Tests or Interventions The following medication(s) were considered but not ordered: ibuprofen Contributing Factors Social Determinants of Health significantly affecting care: poor health literacy and family member interpreting-patient does not speak [place] and declines secretary of police Chronic conditions affecting care: renal failure Chronic conditions addressed by: avoid ibuprofen Disposition The patient was discharged. OTC Medications were advised: tylenol ProceduresA[facility]03-[facility] History of Present illness Narrative* Mere Brunner APRN.HOPPER FEEDER - 07/27/2024 10:39 AM EDT Images from the original note were not included. [facility] Subjective Noé Hughes is a 73 year old male. Patient presents with: Pain (foot): left foot pain and swelling with bruising x 3 days, twisted and fell Pain (foot) Pertinent negatives include no fever. Noé Hughes is a 73 year old male who presents with left foot and ankle swelling and pain. He states he fell on his butt Saturday. He rates his pain 10/10. He has been applying hot packs to the areas. He presents with his daughter in law who is interpreting for him. Noé does not speak [place] and declines use of secretary of police. Review of Systems Constitutional: Negative for chills and fever. Musculoskeletal: Positive for joint swelling. See HPI Skin: Positive for color change. Objective BP 162/84 Pulse 74 Temp 36.9 C (98.5 F) Resp 16 Wt 67.5 kg (148 lb 13 oz) SpO2 97% Physical Exam Vitals and nursing note reviewed. Constitutional: Appearance: Normal appearance. Musculoskeletal: General: Swelling, tenderness and signs of injury present. No deformity. Left foot: Decreased range of motion. Normal capillary refill. Swelling and tenderness present. No deformity, bony tenderness or crepitus. Normal pulse. Legs: Skin: General: Skin is warm and dry. Capillary Refill: Capillary refill takes less than 2 seconds. Findings: Bruising and erythema present. No rash. Neurological: Mental Status: He is alert. ASSESSMENT/PLAN: 1. Injury of left ankle, initial encounter - ICD9: 959.7, ICD10: S99.912A (primary diagnosis) - XR ANKLE GENERAL 3V AP/LAT/OBL LEFT 2. Foot injury, left, initial encounter - ICD9: 959.7, ICD10: S99.922A - XR FOOT GENERAL 3V AP/LAT/OBL LEFT IMPRESSION: Acute distal fibular fracture with associated soft tissue swelling as described. Ledge Man: VALERIE Transcribe Date/Time: Jul 27 2024 10:57A Dictated by : BÁRBARA FUENTES MD 3. Closed fracture of distal end of left fibula, unspecified fracture morphology, initial encounter- ICD9: 824.8, ICD10: S82.832A - CONSULT PANEL TO ORTHOPAEDICS - patient placed in walking boot and advised to use crutches and wear boot until seen by orthopedics. - elevate foot, limit walking until seen by orthopedics. - may take tylenol for pain. - may take boot off and apply ice pack to swollen area. - Follow-up with your PCP in 3-5 days if symptoms have not improved or sooner if symptoms worsen - Discussed red flags and need for immediate medical evaluation if any occur. - Discussed supportive care treatment with fluids, rest and analgesia. - Discussed expected course of illness Mere Brunner APRN.ANA History and Record Review Clinical information obtained from an independent historian. History obtained from or confirmed by:family member. External record(s) reviewed: prior labs/imaging. Findings from review of prior labs/imaging: Previous Renal Function Panel Reviewed No results within last 365 days. Differential Diagnoses - distal fibular fracture is more likely for the following reason(s): suggested by H&P and consistent with imaging - ankle sprain Management I performed an independent interpretation of the following:imaging Imaging: My interpretation is Acute distal fibular fracture with associated soft tissue swelling Additional Tests or Interventions The following medication(s) were considered but not ordered: ibuprofen Contributing Factors Social Determinants of Health significantly affecting care: poor health literacy and family member interpreting-patient does not speak [place] and declines secretary of police Chronic conditions affecting care: renal failure Chronic conditions addressed by: avoid ibuprofen Disposition The patient was discharged. OTC Medications were advised: tylenol [facility] Tele[facility] encounter Note * Telephone Encounter - Casi Terry RN - 01/21/2024 10:38 AM EDT Called and spoke to daughter in law and reviewed instructions. Also told her about device clinic appt. Vesna please call her and schedule 3 month follow-up with [id number] Telephone encounter Note* Telephone Encounter - Casi Terry RN - 01/21/2024 10:38 AM EDT ----- Message from Giancarlo Charles MD sent at 01/20/2024 12:31 PM EDT ----- I placed a pacemaker on Saturday and briefly went over discharge stuff on Saturday. Can someone call him and do a proper teach and arrange follow up? He is bolivian speaking so we will need to call his daughter in law. [facility] [id number] Miscellaneous Notes* Telephone Encounter - Casi Terry RN - 01/21/2024 10:38 AM EDT Called and spoke to daughter in law and reviewed instructions. Also told her about device clinic appt. Vesna please call her and schedule 3 month follow-up with [facility] * Telephone Encounter - Casi Terry RN - 01/21/2024 10:38 AM EDT ----- Message from Giancarlo Charles MD sent at 01/20/2024 12:31 PM EDT ----- I placed a pacemaker on Saturday and briefly went over discharge stuff on Saturday. Can someone call him and do a proper teach and arrange follow up? He is bolivian speaking so we will need to call his daughter in law. documented in this encounterSLancaster Municipal [id number] Plan of care note* Care Plan - Diamond Hernandez RN - 01/20/2024 1:54 PM EDT The patient is Moderately Stable - Low risk of patient condition declining or worsening The patient's goals for the shift include The clinical goals for the shift include Over the shift, the patient did not make progress toward the following goals. Barriers to progression include . Recommendations to address these barriers include . Patient discharged. [place] [id number] Miscellaneous Notes* Care Plan - Diamond Hernandez RN - 01/20/2024 1:54 PM EDT The patient is Moderately Stable - Low risk of patient condition declining or worsening The patient's goals for the shift include The clinical goals for the shift include Over the shift, the patient did not make progress toward the following goals. Barriers to progression include . Recommendations to address these barriers include . Patient discharged. * Care Plan - Diamond Lovett RN - 01/18/2024 5:12 AM EDT The patient is Moderately Unstable - Medium risk of patient condition declining or worsening The patient's goals for the shift include rest The clinical goals for the shift include remain hemodynamically stable. Problem: Pain - Adult Goal: Verbalizes/displays adequate comfort level or baseline comfort level 01/18/2024511 by Diamond Lovett RN Outcome: Progressing 01/18/2024355 by Diamond Lovett RN Outcome: Progressing Problem: Safety - Adult Goal: Free from fall injury 01/18/2024511 by Diamond Lovett RN Outcome: Progressing 01/18/2024355 by Diamond Lovett RN Outcome: Progressing Problem: Discharge Planning Goal: Discharge to home or other facility with appropriate resources 01/18/2024511 by Diamond Lovett RN Outcome: Progressing 01/18/2024355 by Diamond Lovett RN Outcome: Progressing Problem: Chronic Conditions and Co-morbidities Goal: Patient's chronic conditions and co-morbidity symptoms are monitored and maintained or improved 01/18/2024511 by Diamond Lovett RN Outcome: Progressing 01/18/2024355 by Diamond Lovett RN Outcome: Progressing * Care Plan - Diamond Lovett RN - 01/18/2024 3:56 AM EDT The patient is Moderately Unstable - Medium risk of patient condition declining or worsening The patient's goals for the shift include rest. The clinical goals for the shift include remain hemodynamically stable. Problem: Pain - Adult Goal: Verbalizes/displays adequate comfort level or baseline comfort level Outcome: Progressing Problem: Safety - Adult Goal: Free from fall injury Outcome: Progressing Problem: Discharge Planning Goal: Discharge to home or other facility with appropriate resources Outcome: Progressing Problem: Chronic Conditions and Co-morbidities Goal: Patient's chronic conditions and co-morbidity symptoms are monitored and maintained or improved Outcome: Progressing documented in this [facility]09-02-2024 Nurse Note* Diamond Hernandez RN - 01/20/2024 1:53 PM EDT Reviewed discharge instructions with Daughter in Law and Son, answered questions. Patient alert andoriented. [facility] [id number] Nurse Note* Diamond Hernandez RN - 01/20/2024 1:53 PM EDT Reviewed discharge instructions with Daughter in Law and Son, answered questions. Patient alert andoriented. * Mehdi Anderson RN - 01/20/2024 8:06 AM EDT Unable to obtain values off dialysis cycler this am. Cycler was turned off and pt was taken off by . Effluent clear yellow. Pt off unit at this time for imaging. * Elena Saavedra RN - 01/19/2024 8:13 AM EDT Pt to go down to get pacer this AM. Pt still hooked up to their PD. Oncall physical instructor called to help assist in getting patient unhooked from PD. Per dialysis nurse it is okay to have patient take himself off since he does it at home. With patient assistance this RN and patient unhooked him from PD. documented in this [facility]09-02-2024 Hospital Discharge instructions* Discharge Instructions* Diamond Hernandez RN - 01/20/2024 1:20 PM EDT * Attachments The following attachments cannot be sent through Care Everywhere. * Biventricular Cardiac Pacemaker Placement Discharge Instructions ([place] Island[place]) documented in this [facility]09-02-2024 NoteInternal Medicine: Med Team Discharge Summary Noé Hughes : 1950 ADMIT DATE: 01/17/2024 DISCHARGE DATE: 01/20/24 PCP: PRUDENCIO JACKSON MD Visit Status: Admission Code Status: FULL CODE Primary Discharge Diagnosis: Sick sinus syndrome s/p pacemaker insertion (01/19/24) Secondary Discharge Diagnoses: ESRD on PD Secondary hyperparathyroidism Normocytic anemia T2DM, on insulin [place] Island[place] speaking Reason for Admission & Hospital Course: Noé Hughes is a 73 y.o. male that presented to [facility] on 01/17/2024 and was admitted for presyncope. Examination showed hypotension and a junctional rhythm w HR of 30. Evaluated by EP who determined pacemaker placement was indicated. Underwent pacemaker insertion on 01/18 without complication. Observed ON til 01/19. CXR w/out pneumothorax and successful device interrogation. Patient remained stable and was cleared for discharge. Plan to follow up w PCP and cardiology. Disposition: Home Activity: No restriction. Diet: Adult diet Regular Discharge Medications: Medication List CONTINUE taking these medications atorvastatin 20 MG tablet Commonly known as: Lipitor B complex-vitamin C-folic acid 1 MG tablet calcitriol 0.5 MCG capsule Commonly known as: Rocaltrol docusate sodium 100 MG capsule Commonly known as: Colace felodipine ER 10 MG 24 hr tablet Commonly known as: Plendil FeroSul 325 (65 Fe) MG tablet Generic drug: ferrous sulfate insulin glargine 100 UNIT/ML injection Commonly known as: Lantus lactulose 10 GM/15ML solution Commonly known as: Chronulac pantoprazole 20 MG EC tablet Commonly known as: ProtoNix sevelamer 800 MG tablet Commonly known as: Renagel Notable Medication Changes & Reasoning: None [facility]iology Nephrology Procedures Performed Pacemaker insertion (01/19/24) Significant Laboratory/Radiographic Data: None Pending Results at Time of Discharge None Follow Up Appointment(s): No future appointments. Cardiology to arrange OP follow up. Advised patient to schedule hospital follow up w PCP (pt's preference). Patient and family acknowledged understanding. Items to Address at Followup Visit: Further syncopal events Infection concerns Patient seen and examined on day of discharge, Please refer to progress note dated on the day of discharge cited above for associated attestation, exam and plan. I reviewed documentation above and agree with the documented findings and plan of care, unless otherwise noted. [facility]09-02-2024 Hospital course Narrative* Briana Lynn MD - 01/20/2024 1:17 PM EDT Internal Medicine: Med Team Discharge Summary Noé Hughes : 1950 ADMIT DATE: 01/17/2024 DISCHARGE DATE: 01/20/24 PCP: PRUDENCIO JACKSON MD Visit Status: Admission Code Status: FULL CODE Primary Discharge Diagnosis: Sick sinus syndrome s/p pacemaker insertion (01/19/24) Secondary Discharge Diagnoses: ESRD on PD Secondary hyperparathyroidism Normocytic anemia T2DM, on insulin [place] Island[place] speaking Reason for Admission & Hospital Course: Noé Hughes is a 73 y.o. male that presented to [facility] on 01/17/2024 and was admitted for presyncope. Examination showed hypotension and a junctional rhythm w HR of 30. Evaluated by EP who determined pacemaker placement was indicated. Underwent pacemaker insertion on 01/18 without complication. Observed ON til 01/19. CXR w/out pneumothorax and successful device interrogation. Patient remained stable and was cleared for discharge. Plan to follow up w PCP and cardiology. Disposition: Home Activity: No restriction. Diet: Adult diet Regular Discharge Medications: Medication List CONTINUE taking these medications atorvastatin 20 MG tablet Commonly known as: Lipitor B complex-vitamin C-folic acid 1 MG tablet calcitriol 0.5 MCG capsule Commonly known as: Rocaltrol docusate sodium 100 MG capsule Commonly known as: Colace felodipine ER 10 MG 24 hr tablet Commonly known as: Plendil FeroSul 325 (65 Fe) MG tablet Generic drug: ferrous sulfate insulin glargine 100 UNIT/ML injection Commonly known as: Lantus lactulose 10 GM/15ML solution Commonly known as: Chronulac pantoprazole 20 MG EC tablet Commonly known as: ProtoNix sevelamer 800 MG tablet Commonly known as: Renagel Notable Medication Changes & Reasoning: None [facility] Cardiology Nephrology Procedures Performed Pacemaker insertion (01/19/24) Significant Laboratory/Radiographic Data: None Pending Results at Time of Discharge None Follow Up Appointment(s): No future appointments. Cardiology to arrange OP follow up. Advised patient to schedule hospital follow up w PCP (pt's preference). Patient and family acknowledged understanding. Items to Address at Followup Visit: Further syncopal events Infection concerns Patient seen and examined on day of discharge, Please refer to progress note dated on the day of discharge cited above for associated attestation, exam and plan. I reviewed documentation above and agree with the documented findings and plan of care, unless otherwise noted. documented in this [facility]09-02-2024 [facility] [place] [facility] Cardiology /Electrophysiology Progress Note HPI / Interval History: Mr. Hughes is doing well this morning. No acute complaints. Assessment/Plan Sick Sinus Syndrome - s/p pacemaker implant 01/19/2024 - CXR this AM shows stable lead position and no pnuemothorax - Device interrogation shows stable lead parameters - Stable for discharge from a cardiac standpoint. Will arrange outpatient follow up. Medications: atorvastatin, 20 mg, Oral, Daily B complex-vitamin C-folic acid, 1 capsule, Oral, Daily [Held by provider] calcitriol, 0.5 mcg, Oral, Daily cholecalciferol, 1,000 Units, Oral, Daily dianeal low Ca/D1.5%, , IntraPERitoneal, q6h dianeal low Ca/D2.5%, , IntraPERitoneal, q6h docusate sodium, 100 mg, Oral, BID ferrous sulfate, 325 mg, Oral, BID WC gentamicin, , Topical, Daily [Held by provider] heparin, 5,000 Units, SubCUTAneous, 2 times per day insulin glargine, 30 Units, SubCUTAneous, q AM insulin lispro, 0-6 Units, SubCUTAneous, TID WC lactulose, 20 g, Oral, BID pantoprazole, 40 mg, Oral, qAM AC sevelamer carbonate, 3,200 mg, Oral, TID WC Infusion Medications: Physical Examination: Vitals: 01/20/24 0125 01/20/24 0544 01/20/24 0919 01/20/24 1005 BP: 148/81 148/83 153/77 BP Location: Right arm Right arm Patient Position: Lying Lying Pulse: 63 64 66 Resp: 16 16 16 Temp: 36.1 ?C (97 ?F) 36.3 ?C (97.3 ?F) 36.5 ?C (97.7 ?F) TempSrc: Temporal Temporal Temporal SpO2: 98% 100% 99% Weight: 139 lb 12.8 oz (63.4 kg) Height: No intake or output data in the 24 hours ending 01/20/24 1228 Wt Readings from Last 1 Encounters: 01/20/24 139 lb 12.8 oz (63.4 kg) Physical Exam Constitutional: Appearance: Normal appearance. HENT: Head: Normocephalic and atraumatic. Mouth/Throat: Mouth: Mucous membranes are moist. Eyes: Extraocular Movements: Extraocular movements intact. Cardiovascular: Rate and Rhythm: Normal rate and regular rhythm. Pulses: Normal pulses. Heart sounds: Normal heart sounds. Pulmonary: Effort: Pulmonary effort is normal. Breath sounds: Normal breath sounds. Abdominal: Palpations: Abdomen is soft. Musculoskeletal: General: Normal range of motion. Cervical back: Normal range of motion and neck supple. Skin: General: Skin is warm and dry. Neurological: General: No focal deficit present. Mental Status: He is alert and oriented to person, place, and time. Psychiatric: Mood and Affect: Mood normal. Behavior: Behavior normal. Thought Content: Thought content normal. Judgment: Judgment normal. Laboratory Tests: Recent Labs 01/17/24213401/18/24 0008 01/19/24 0603 01/20/24 0551 NA 136 134* 135 136 K 4.2 4.0 4.0 3.8 CL 101 102 100 103 CO2 21* 19* 21* 17* BUN 70* 71* 74* 73* CREATININE 11.51* 11.20* 11.13* 10.80* Recent Labs 01/17/24213401/19/2403 WBC 9.6 5.4 HGB 12.0* 11.9* HCT 35.2* 34.9* MCV 88.9 89.3 PLT 241 216 Recent Labs 01/17/242134 TROPONINI 0.023 No results for input(s): BNP in the last 72 hours. No results for input(s): TRIG, HDL, LDLCALC, CHOL in the last 72 hours. No results found for: LDLCHOLESTER Lab Results Component Value Date TSH 1.356 01/17/2024 EF BP Date Value Ref Range Status 01/18/2024 54 (A) 55 - 100 % Final 01/17/24 TRANSTHORACIC ECHOCARDIOGRAM (TTE) COMPLETE (CONTRAST/BUBBLE/3D PRN) 01/19/2024 9:51 AM (Final) Interpretation Summary Left Ventricle: Left ventricle size is normal. Mild basal septal thickening. Low normal left ventricular systolic function. EF by 2D Simpsons Biplane is 54%. Global longitudinal strain is -17.4%. Normal wall motion. Right Ventricle: Right ventricle size is normal. Normal systolic function. Aortic Valve: Mild (1+) regurgitation. Mitral Valve: Trace regurgitation. Tricuspid Valve: Mild (1+) regurgitation. RVSP is 35 mmHg. IVC/SVC: IVC diameter is normal and decreases less than 50% during inspiration; therefore the estimated right atrial pressure is intermediate (~8 mmHg). Signed by: Jerry Hui MD on 01/19/2024 9:51 AM EF BP Date Value Ref Range Status 01/18/2024 54 (A) 55 - 100 % Final Meet Alfa Charles MD Date Of Service 01/20/2024[facility] [id number] History of Present illness Narrative* Meet Belinda Charles MD - 01/20/2024 12:26 PM EDT [facility] [place] [facility] Cardiology /Electrophysiology Progress Note HPI / Interval History: Mr. Hughes is doing well this morning. No acute complaints. Assessment/Plan Sick Sinus Syndrome - s/p pacemaker implant 01/19/2024 - CXR this AM shows stable lead position and no pnuemothorax - Device interrogation shows stable lead parameters - Stable for discharge from a cardiac standpoint. Will arrange outpatient follow up. Medications: atorvastatin, 20 mg, Oral, Daily B complex-vitamin C-folic acid, 1 capsule, Oral, Daily [Held by provider] calcitriol, 0.5 mcg, Oral, Daily cholecalciferol, 1,000 Units, Oral, Daily dianeal low Ca/D1.5%, , IntraPERitoneal, q6h dianeal low Ca/D2.5%, , IntraPERitoneal, q6h docusate sodium, 100 mg, Oral, BID ferrous sulfate, 325 mg, Oral, BID WC gentamicin, , Topical, Daily [Held by provider] heparin, 5,000 Units, SubCUTAneous, 2 times per day insulin glargine, 30 Units, SubCUTAneous, q AM insulin lispro, 0-6 Units, SubCUTAneous, TID WC lactulose, 20 g, Oral, BID pantoprazole, 40 mg, Oral, qAM AC sevelamer carbonate, 3,200 mg, Oral, TID WC Infusion Medications: Physical Examination: Vitals: 01/20/24 0125 01/20/24 0544 01/20/24 0919 01/20/24 1005 BP: 148/81 148/83 153/77 BP Location: Right arm Right arm Patient Position: Lying Lying Pulse: 63 64 66 Resp: 16 16 16 Temp: 36.1 C (97 F) 36.3 C (97.3 F) 36.5 C (97.7 F) TempSrc: Temporal Temporal Temporal SpO2: 98% 100% 99% Weight: 139 lb 12.8 oz (63.4 kg) Height: No intake or output data in the 24 hours ending 01/20/24 1228 Wt Readings from Last 1 Encounters: 01/20/24 139 lb 12.8 oz (63.4 kg) Physical Exam Constitutional: Appearance: Normal appearance. HENT: Head: Normocephalic and atraumatic. Mouth/Throat: Mouth: Mucous membranes are moist. Eyes: Extraocular Movements: Extraocular movements intact. Cardiovascular: Rate and Rhythm: Normal rate and regular rhythm. Pulses: Normal pulses. Heart sounds: Normal heart sounds. Pulmonary: Effort: Pulmonary effort is normal. Breath sounds: Normal breath sounds. Abdominal: Palpations: Abdomen is soft. Musculoskeletal: General: Normal range of motion. Cervical back: Normal range of motion and neck supple. Skin: General: Skin is warm and dry. Neurological: General: No focal deficit present. Mental Status: He is alert and oriented to person, place, and time. Psychiatric: Mood and Affect: Mood normal. Behavior: Behavior normal. Thought Content: Thought content normal. Judgment: Judgment normal. Laboratory Tests: Recent Labs 01/17/24213401/18/24 0008 01/19/24 0603 01/20/24 0551 NA 136 134* 135 136 K 4.2 4.0 4.0 3.8 CL 101 102 100 103 CO2 21* 19* 21* 17* BUN 70* 71* 74* 73* CREATININE 11.51* 11.20* 11.13* 10.80* Recent Labs 01/17/24213401/19/24 0603 WBC 9.6 5.4 HGB 12.0* 11.9* HCT 35.2* 34.9* MCV 88.9 89.3 PLT 241 216 Recent Labs 01/17/242134 TROPONINI 0.023 No results for input(s): BNP in the last 72 hours. No results for input(s): TRIG, HDL, LDLCALC, CHOL in the last 72 hours. No results found for: LDLCHOLESTER Lab Results Component Value Date TSH 1.356 01/17/2024 EF BP Date Value Ref Range Status 01/18/2024 54 (A) 55 - 100 % Final 01/17/24 TRANSTHORACIC ECHOCARDIOGRAM (TTE) COMPLETE (CONTRAST/BUBBLE/3D PRN) 01/19/2024 9:51 AM (Final) Interpretation Summary Left Ventricle: Left ventricle size is normal. Mild basal septal thickening. Low normal left ventricular systolic function. EF by 2D Simpsons Biplane is 54%. Global longitudinal strain is -17.4%. Normal wall motion. Right Ventricle: Right ventricle size is normal. Normal systolic function. Aortic Valve: Mild (1+) regurgitation. Mitral Valve: Trace regurgitation. Tricuspid Valve: Mild (1+) regurgitation. RVSP is 35 mmHg. IVC/SVC: IVC diameter is normal and decreases less than 50% during inspiration; therefore the estimated right atrial pressure is intermediate (~8 mmHg). Signed by: Jerry Hui MD on 01/19/2024 9:51 AM EF BP Date Value Ref Range Status 01/18/2024 54 (A) 55 - 100 % Final Meet Alfa Charles MD Date Of Service 01/20/2024 * Arun Valencia MD - 01/20/2024 9:48 AM EDT Patient unavailable at time of rounds due to patient care. Reviewed chart. Unknown UF as patient taken off treatment by this AM. SBP remain around 140s. Serum calcium elevated but improving. Will continue PD as prescribed. Dr. Jany Awan to resume renal care on 01/20. Signed: Arun Valencia MD Nephrology [facility] ([facility]) Pager: [phone] Office Office * Briana Lynn MD - 01/20/2024 7:24 AM EDT Med Team Progress Note Noé Hughes : 1950(73 y.o.) Date: January 20, 2024 Med Team: Leydi Attending: Leah Chief Complaint: Presyncope Subjective: - No acute events overnight. - Currently, the patient is doing well and had no complaints. Discussed follow up plans and coordinated OP follow ups. Patient's PCP is Dr. Jackson. Discussed with family and patient via secretary of police. PRN meds used in last 24hrs: Tylenol 650 mg x2 Pt seen and examined earlier today on bedside resident teaching rounds. Hx and PE independently obtained. [employer] cost report clerk used to d/w pt and family at bedside. Pt reports doing well. Taking po well. Only minimal discomfort at site of PM insertion. Review of Systems Cardiovascular: Negative for chest pain and leg swelling. Agree. Scheduled Meds:atorvastatin, 20 mg, Oral, Daily B complex-vitamin C-folic acid, 1 capsule, Oral, Daily [Held by provider] calcitriol, 0.5 mcg, Oral, Daily cholecalciferol, 1,000 Units, Oral, Daily dianeal low Ca/D1.5%, , IntraPERitoneal, q6h dianeal low Ca/D2.5%, , IntraPERitoneal, q6h docusate sodium, 100 mg, Oral, BID ferrous sulfate, 325 mg, Oral, BID WC gentamicin, , Topical, Daily [Held by provider] heparin, 5,000 Units, SubCUTAneous, 2 times per day insulin glargine, 30 Units, SubCUTAneous, q AM insulin lispro, 0-6 Units, SubCUTAneous, TID WC lactulose, 20 g, Oral, BID pantoprazole, 40 mg, Oral, qAM AC sevelamer carbonate, 3,200 mg, Oral, TID WC Continuous Infusions: Objective: BP 148/83 Pulse 64 Temp 36.3 C (97.3 F) (Temporal) Resp 16 Ht 5' 7 (1.702 m) Wt 160 lb (72.6 kg) SpO2 100% BMI 25.06 kg/m Physical Exam Constitutional: General: He is not in acute distress. Appearance: He is normal weight. HENT: Head: Normocephalic and atraumatic. Nose: Nose normal. Eyes: Conjunctiva/sclera: Conjunctivae normal. Cardiovascular: Rate and Rhythm: Normal rate and regular rhythm. Heart sounds: Normal heart sounds. Abdominal: General: Bowel sounds are normal. Musculoskeletal: General: No swelling. Skin: General: Skin is warm and dry. Neurological: General: No focal deficit present. Mental Status: He is alert and oriented to person, place, and time. Psychiatric: Mood and Affect: Mood normal. Agree. PM pouch site appears benign. [facility] within last 24 hours No results found for: WBC, HGB, HCT, PLT, MCV SODIUM Date Value Ref Range Status 01/20/2024 136 135 - 145 mmol/L Final POTASSIUM Date Value Ref Range Status 01/20/2024 3.8 3.5 - 5.1 mmol/L Final CHLORIDE Date Value Ref Range Status 01/20/2024 103 98 - 107 mmol/L Final CARBON DIOXIDE Date Value Ref Range Status 01/20/2024 17 (L) 22 - 30 mmol/L Final UREA NITROGEN Date Value Ref Range Status 01/20/2024 73 (H) 9 - 20 mg/dL Final CREATININE Date Value Ref Range Status 01/20/2024 10.80 (H) 0.66 - 1.25 mg/dL Final GLUCOSE Date Value Ref Range Status 01/20/2024 127 (H) 70 - 100 mg/dL Final CALCIUM Date Value Ref Range Status 01/20/2024 10.5 (H) 8.4 - 10.4 mg/dL Final No results found for: AST, ALT, PROT, BILITOT, ALKPHOS, INR, APTT, LIPASE No results found for: CKTOTAL, CKMB, TROPONINI No results found for: PROCAL, CHOL, TRIG, HDL, TSH, VITD25, HGBA1C, VANCOTROUGH Assessment and Plan: Sick sinus syndrome with presyncope - Episode of symptomatic junctional bradycardia today with rates in 30s - No known previous cardiac history - TSH 1.356 Plan: - Hold CCB (felodipine) - no current cardiac medications - EP consult; - pacemaker placed 01/19/2024 - OK for discharge - TTE --> EF 54%. Normal RV fnt. 1+ AI, trace MR. IVC collapse <50% Agree. ESRD on PD HAGMA likely 2/2 uremia Secondary Hyperparathyroidism - Follows with Dr. Rylee Coronel from [place] for nephrology - calcium improving over admission - Unclear if calcium contributed to junctional bradycardia Plan: - Nephrology consult - PD, instructions in nephrology note - Nephrocaps daily - PD site care - Sevelamer 3200 TID - Vitamin D 18 - cholecalciferol 1000 u daily - Hold calcitriol Agree. Normocytic anemia - Likely anemia of chronic disease +/- iron deficiency - No concern for acute bleeding Plan: - Continue home ferrous sulfate - Monitor via every other day CBC Chronic Problems and Follow Up Items: T2DM - A1C 7.1 Plan: - home glargine 30 units daily - LDISS with meals - Hypoglycemia protocol - Goals of Care: FULL CODE - DVT Prophylaxis: Heparin - GI Prophylaxis: Not Indicated - Diet: General, Carb-Control, and Renal - Disposition: Home today pending EP eval Attending Supervising Physician's Attestation Statement for Discharge I performed a history and physical examination on the patient and discussed the management with theresident physician. I reviewed and agree with the findings and plan as documented in their note except as amended in green font. Addendums may have been dictated using the [email or web address] Voice Recognition Feature. The document was proofread; however, unrecognized voice recognition field crop i farmworker errors may be present. Please note, the time of this note does not reflect the time I saw this patient today, but the time of this documentaton. Discussed with: [x]Residents [x]Patient [x]Family [x]RN [x]Consultants - marketing administrative assistant by [employer] Chat []SW/TCC [] PT/OT []Pharmacist []Other Reviewed: [x]Epic notes []Radiology studies [x]Labs []EKG []Other Discharge: Time spent on discharge >30 minutes. * Jany Awan DO - 01/19/2024 3:45 PM EDT Images from the original note were not included. NEPHROLOGY PROGRESS NOTE PATIENT NAME: Noé Hughes ROOM: [facility]/[address] SERVICE DATE: 01/19/2024 SERVICE TIME: 3:45 PM LENGTH OF STAY: 2 day(s) REFERRING PHYSICIAN: Briana Lynn MD PRIMARY CARE PHYSICIAN: PRUDENCIO JACKSON MD OUTPATIENT ADAPTED PHYSICAL EDUCATION AIDE: Rylee Coronel DO Subjective/[facility] Patient was seen and examined this afternoon, and his was present at the bedside on evaluation. pigment pumper services were used to facilitate conversation. He admits to having some discomfort to the bottom of his feet. His notes that his car attendant recently increased his sevelamer from 3 tablets with meals to 4 tablets with meals. She states that he is scheduled for monthly labs with his local [facility] unit on 01/22/24. He denies concerns for dyspnea. His overnight PD session waswith 667 cc UF. He underwent PPM placement earlier this morning. Objective Physical Exam Patient Vitals for the past 24 hrs: BP Temp Temp src Pulse Resp SpO2 Height Weight 01/19/24 1309 131/75 36 C (96.8 F) Temporal 62 17 99 % -- -- 01/19/24 1203 127/65 -- -- 65 -- 99 % -- -- 01/19/24 1131 147/76 -- -- 68 -- 100 % -- -- 01/19/24 1124 157/74 -- -- 67 -- 99 % -- -- 01/19/24 1101 -- -- -- 63 -- 98 % -- -- 01/19/24 1101 141/76 -- -- 63 -- 99 % -- -- 01/19/24 1100 150/75 -- -- 60 -- 95 % -- -- 01/19/24 1045 156/79 -- -- 63 16 98 % -- -- 01/19/24 1031 147/77 (!) 35.7 C (96.2 F) Temporal 60 18 97 % -- -- 01/19/24 1030 147/77 (!) 35.7 C (96.2 F) Temporal 60 16 97 % -- -- 01/19/24 1028 158/78 (!) 35.6 C (96.1 F) Temporal 60 -- 94 % -- -- 01/19/24 1012 (!) 146/81 (!) 35.6 C (96.1 F) Temporal 63 16 96 % -- -- 01/19/24 0540 131/75 (!) 35.9 C (96.6 F) Temporal 58 16 98 % -- -- 01/19/24 0144 145/81 36.1 C (97 F) Temporal 58 18 100 % -- -- 01/18/24 2200 159/84 36.3 C (97.3 F) Temporal 62 20 99 % -- -- 01/18/24 2058 (!) 167/77 36.7 C (98 F) Temporal 59 18 100 % -- -- 01/18/24 1840 151/70 37.1 C (98.7 F) Temporal 57 18 96 % -- -- 01/18/24 1611 -- -- -- -- -- -- 1.702 m (5' 7) 72.6 kg (160 lb) I/Os: Intake/Output Summary (Last 24 hours) at 01/19/2024 1545 Last data filed at 01/19/2024 0845 Gross per 24 hour Intake 50120 ml Output 58330 ml Net -667 ml Weight: Weight on Admission: 72.6 kg (160 lb) Wt Readings from Last 5 Encounters: 01/18/24 72.6 kg (160 lb) General: NAD, pleasant, cooperative Head: normocephalic, atraumatic Eyes: EOMI, sclera are anicteric ENT: hearing intact to spoken voice, mucus membranes are moist Cardiovascular: +S1 & S2 sounds, regular rate and rhythm, there is no LE edema Pulmonary: lungs are CTA bilaterally without wheezing, rales, or rhonchi Gastrointestinal: abdomen is soft, non-tender, non-distended, with left-sided PD catheter in place Neurological: awake, alert Skin: warm and dry, without rash to visible skin Recent Labs: Recent Labs 01/17/24213401/19/24 0603 WBC 9.6 5.4 HGB 12.0* 11.9* HCT 35.2* 34.9* MCV 88.9 89.3 PLT 241 216 No results found for: IRON, TIBC, FERRITIN No results found for: [id number], FOLATE Recent Labs 01/17/24213401/18/24 0008 01/19/24 0603 NA 136 134* 135 K 4.2 4.0 4.0 CL 101 102 100 CO2 21* 19* 21* BUN 70* 71* 74* CREATININE 11.51* 11.20* 11.13* GLUCOSE 87 135* 133* CALCIUM 11.7* 11.2* 10.7* MG 2.3 -- -- PHOS 7.2* -- -- ANIONGAP 14* 13 13 ALBUMIN -- 3.7 -- Lab Results Component Value Date PTH 62.3 (H) 01/17/2024 VITD25 18 (L) 01/19/2024 CAION 5.20 01/18/2024 Lab Results Component Value Date ALT 34 01/18/2024 AST 31 01/18/2024 No results for input(s): INR, PROTIME, PTT in the last 72 hours. No results for input(s): COLORU, CLARITYU, PH, PHUR, LABSPEC, GLUCOSEU, BLOODU, LEUKOCYTESUR, NITRITE, BILIRUBINUR, UROBILINOGEN, BACTERIA, AMORPHOUS, CASTS in the last 72hours. No lab exists for component: PROTEINUA, KEYTONESU, RBCUA, WBCUA, CRYSTAL No results for input(s): NAUR, KUR, CLUR in the last 72 hours. No lab exists for component: CO2UR, CRUR No results found for: HEPBCAB, HEPCAB Current Inpatient Medications: atorvastatin, 20 mg, Oral, Daily B complex-vitamin C-folic acid, 1 capsule, Oral, Daily [Held by provider] calcitriol, 0.5 mcg, Oral, Daily docusate sodium, 100 mg, Oral, BID ferrous sulfate, 325 mg, Oral, BID WC [Held by provider] heparin, 5,000 Units, SubCUTAneous, 2 times per day insulin glargine, 30 Units, SubCUTAneous, q AM insulin lispro, 0-6 Units, SubCUTAneous, TID WC lactulose, 20 g, Oral, BID pantoprazole, 40 mg, Oral, qAM AC sevelamer carbonate, 800 mg, Oral, TID WC Assessment Noé Hughes is a 73 y.o. [place]-speaking male with PMHx significant for ESRD on PD, HTN, HLD, DM type 2 who presented with near syncope in the setting of bradycardia and was admitted forfurther management. Nephrology is following for the provision of inpatient dialysis. Plan ESRD on PD HOME prescription Mode: CCPD Exchanges: 5 cycles of 2,000 mL Solution: half 1.5% & half 2.5% bags Last Fill: none Total vol: 10.0 L for 8.5 hrs CURRENT prescription Mode: CCPD Exchanges: 5 cycles of 2,000 mL Solution: half 1.5% & half 2.5% bags Last Fill: none Total vol: 10.0 L for 8.5 hrs - Nephrocaps daily - follow chemistries - dose adjust medications to CrCl <10 - gentamycin to PD catheter exit site CKD-MBD - calcium is improved (most recent ionized calcium level was acceptable at 5.20), agree with holding calcitriol - most recent phosphate was elevated at 7.2, increased sevelamer to home dose of 3,200 mg TID with meals - vitamin D level was low at 18, will start cholecalciferol 1,000 units daily - PTH level was increased at 62.3 but acceptable and below target (150 to 600) in the setting of ESRD - will continue to follow Anemia - Hgb is acceptable and above goal in the setting of ESRD, would defer KYLE administration at present - follow CBC Lytes - serum Na corrected for hyperglycemia was acceptable at 135 - follow chemistries Acid base - NAGMA with serum bicarbonate slightly decreased at 21, will improve with dialysis - follow chemistries Volume/blood pressure - recent blood pressures are acceptable We will continue to follow along with you. Please text/call/page with any questions or concerns. SIGNATURE: Jany Awan DO PATIENT NAME: Noé Hughes ROOM: [facility] A DATE: January 19, 2024 TIME: 3:45 PM PAGER: [phone] OFFICE: [phone] * Paradise Gould - 01/19/2024 1:41 PM EDT .Nutrition rescreen completed. Patient referred to the Dietitian. ESRD.BETSY Silva * Briana Lynn MD - 01/19/2024 8:01 AM EDT Med Team Progress Note Noé Hughes : 1950(73 y.o.) Date: January 19, 2024 Med Team: Leydi Attending: Leah Chief Complaint: Presyncopy Subjective: - No acute events overnight. - Currently, the patient had his pacemaker placed today. He did not have any complaints. We updatedpt that the neon pumper will see him tomorrow and make sure that he is recovering well prior to discharge. He was able to communicate the indication for his pacemaker and that plan back. Conversation was mediated by translation services. PRN meds used in last 24hrs: None Pt seen and examined earlier today on bedside resident teaching rounds. [employer] cost report clerk used to speak with pt and family at bedside. Hx and PE independently obtained and agree with above. Pt with no new questions/concerns. Family states they will have a ride home if pt discharged tomorrow as anticipated. Review of Systems Constitutional: Negative for chills and fatigue. Respiratory: Negative for cough and chest tightness. Cardiovascular: Negative for chest pain and palpitations. Agree. Scheduled Meds:sodium chloride, , , vancomycin, , , atorvastatin, 20 mg, Oral, Daily B complex-vitamin C-folic acid, 1 capsule, Oral, Daily [Held by provider] calcitriol, 0.5 mcg, Oral, Daily docusate sodium, 100 mg, Oral, BID ferrous sulfate, 325 mg, Oral, BID WC [Held by provider] heparin, 5,000 Units, SubCUTAneous, 2 times per day insulin glargine, 30 Units, SubCUTAneous, q AM insulin lispro, 0-6 Units, SubCUTAneous, TID WC lactulose, 20 g, Oral, BID pantoprazole, 40 mg, Oral, qAM AC sevelamer carbonate, 800 mg, Oral, TID WC vancomycin, 1,000 mg, IntraVENous, Once Continuous Infusions: Objective: BP 131/75 (BP Location: Right arm, Patient Position: Lying) Pulse 58 Temp (!) 35.9 C (96.6 F) (Temporal) Resp 16 Ht 5' 7 (1.702 m) Wt 160 lb (72.6 kg) SpO2 98% BMI 25.06 kg/m Physical Exam Constitutional: General: He is not in acute distress. Appearance: Normal appearance. HENT: Head: Normocephalic. Right Ear: External ear normal. Left Ear: External ear normal. Nose: Nose normal. Eyes: Conjunctiva/sclera: Conjunctivae normal. Cardiovascular: Rate and Rhythm: Normal rate and regular rhythm. Pulses: Normal pulses. Heart sounds: Normal heart sounds. Pulmonary: Effort: Pulmonary effort is normal. Breath sounds: Normal breath sounds. Skin: General: Skin is warm and dry. Neurological: Mental Status: He is alert. Awake, alert, cooperative. Makes good eye contact. HEENT- MMM. Neck-supple Cor- RRR, nl S1S2. Chestwall- new PM left upper chest. Incision clean. Lungs- CTA. Abd (+) BS, soft NT. Ext- no edema. [facility] within last 24 hours Auto WBC Date Value Ref Range Status 01/19/2024 5.4 3.6 - 10.7 10*3/uL Final Hemoglobin Date Value Ref Range Status 01/19/2024 11.9 (L) 13.0 - 18.0 g/dL Final Hematocrit Date Value Ref Range Status 01/19/2024 34.9 (L) 40.0 - 52.0 % Final Platelets Date Value Ref Range Status 01/19/2024 216 140 - 440 10*3/uL Final MCV Date Value Ref Range Status 01/19/2024 89.3 77.0 - 99.0 fL Final SODIUM Date Value Ref Range Status 01/19/2024 135 135 - 145 mmol/L Final POTASSIUM Date Value Ref Range Status 01/19/2024 4.0 3.5 - 5.1 mmol/L Final CHLORIDE Date Value Ref Range Status 01/19/2024 100 98 - 107 mmol/L Final CARBON DIOXIDE Date Value Ref Range Status 01/19/2024 21 (L) 22 - 30 mmol/L Final UREA NITROGEN Date Value Ref Range Status 01/19/2024 74 (H) 9 - 20 mg/dL Final CREATININE Date Value Ref Range Status 01/19/2024 11.13 (H) 0.66 - 1.25 mg/dL Final GLUCOSE Date Value Ref Range Status 01/19/2024 133 (H) 70 - 100 mg/dL Final CALCIUM Date Value Ref Range Status 01/19/2024 10.7 (H) 8.4 - 10.4 mg/dL Final No results found for: AST, ALT, PROT, BILITOT, ALKPHOS, INR, APTT, LIPASE No results found for: CKTOTAL, CKMB, TROPONINI No results found for: PROCAL, CHOL, TRIG, HDL, TSH, VITD25, HGBA1C, VANCOTROUGH Assessment and Plan: Sick sinus syndrome with presyncope - Episode of symptomatic junctional bradycardia today with rates in 30s - No known previous cardiac history - TSH 1.356 Plan: - Hold CCB (felodipine) - no current cardiac medications - EP consult; - pacemaker placed 01/19/2024 - OK for discharge tomorrow, pending overnight tele observation, placement CXR, and ` device interrogation - TTE --> EF 54%. Normal RV fnt. 1+ AI, trace MR. IVC collapse <50% Agree. ESRD on PD HAGMA likely 2/2 uremia Secondary Hyperparathyroidism - Follows with Dr. Rylee Coronel from [place] for nephrology - calcium improving over admission - Unclear if calcium contributed to junctional bradycardia Plan: - Nephrology consult - PD, instructions in nephrology note - Nephrocaps daily - PD site care - Sevelamer 800 TID - Vitamin D 18 - Hold calcitriol Agree. T2DM - A1C 7.1 Plan: - home glargine 30 units daily - LDISS with meals - Hypoglycemia protocol Agree. Normocytic anemia - Likely anemia of chronic disease +/- iron deficiency - No concern for acute bleeding Plan: - Continue home ferrous sulfate - Monitor via every other day CBC - Goals of Care: FULL CODE - DVT Prophylaxis: Heparin - GI Prophylaxis: Not Indicated - Diet: General, Carb-Control, and Renal - Disposition: GMF with tele Attending Supervising Physician's Attestation Statement for Progress Note I performed a history and physical examination on the patient and discussed the management with theresident physician. I reviewed and agree with the findings and plan as documented in their note except as amended in green font. Addendums may have been dictated using the [email or web address] Voice Recognition Feature. The document was proofread; however, unrecognized voice recognition field crop i farmworker errors may be present. Please note, the time of this note does not reflect the time I saw this patient today, but the time of this documentaton. Discussed with: [x]Residents [x]Patient [x]Family [x]RN []Consultants []SW/TCC [] PT/OT []Pharmacist []Other Reviewed: []Epic notes []Radiology studies [x]Labs []EKG []Other Subsequent Inpatient/OBS: Spent total time 35 minutes counseling or coordinating care, and discussion regarding reviewing plans for possible discharge tomorrow pending events overnight. Communicated with pt/family with [employer] interpretor. 7AM-5PM: contact resident on [facility] Med Team (found by hovering over attending's name on left side of patient's chart) 5PM-7AM: contact AI3 resident * Freddie Erwin MD - 01/17/2024 9:34 PM EDT CCU Plan of Care Asked for evaluation of bradycardia for Noé Hughes, a 73-year-old [place]er- speaking male with ESRD on IHD who presented to [place] with a suspected syncopal episode. On presentation there, he washypotensive and bradycardic with ECG showing a junctional rhythm with HR 30s (confirmed on actual EKG is in patient's chart). He was given atropine and other unclear treatment and transferred to [facility] for further care. On evaluation he reports no symptoms. EKG on arrival to [facility] shows sinus rhythm. Labs pending. Okay to admit to telemetry floors with EP consult. No CCU needs at this time. TTE ordered. Freddie Erwin MD Fellow, Cardiovascular Disease, PGY-5 documented in this [facility]09-02-2024 Nurse Note* Mehdi Anderson RN - 01/20/2024 8:06 AM EDT Unable to obtain values off dialysis cycler this am. Cycler was turned off and pt was taken off by . Effluent clear yellow. Pt off unit at this time for imaging. [id number] NoteMed Team Progress Note Noé Hughes : 1950(73 y.o.) Date: January 20, 2024 Med Team: Leydi Attending: Leah Chief Complaint: Presyncope Subjective: - No acute events overnight. - Currently, the patient is doing well and had no complaints. Discussed follow up plans and coordinated OP follow ups. Patient's PCP is Dr. Jackson. Discussed with family and patient via secretary of police. PRN meds used in last 24hrs: Tylenol 650 mg x2 Pt seen and examined earlier today on bedside resident teaching rounds. Hx and PE independently obtained. [employer] cost report clerk used to d/w pt and family at bedside. Pt reports doing well. Taking po well. Only minimal discomfort at site of PM insertion. Review of Systems Cardiovascular: Negative for chest pain and leg swelling. Agree. Scheduled Meds:atorvastatin, 20 mg, Oral, Daily B complex-vitamin C-folic acid, 1 capsule, Oral, Daily [Held by provider] calcitriol, 0.5 mcg, Oral, Daily cholecalciferol, 1,000 Units, Oral, Daily dianeal low Ca/D1.5%, , IntraPERitoneal, q6h dianeal low Ca/D2.5%, , IntraPERitoneal, q6h docusate sodium, 100 mg, Oral, BID ferrous sulfate, 325 mg, Oral, BID WC gentamicin, , Topical, Daily [Held by provider] heparin, 5,000 Units, SubCUTAneous, 2 times per day insulin glargine, 30 Units, SubCUTAneous, q AM insulin lispro, 0-6 Units, SubCUTAneous, TID WC lactulose, 20 g, Oral, BID pantoprazole, 40 mg, Oral, qAM AC sevelamer carbonate, 3,200 mg, Oral, TID WC Continuous Infusions: Objective: BP 148/83 Pulse 64 Temp 36.3 ?C (97.3 ?F) (Temporal) Resp 16 Ht 5' 7 (1.702 m) Wt 160 lb (72.6 kg) SpO2 100% BMI 25.06 kg/m? Physical Exam Constitutional: General: He is not in acute distress. Appearance: He is normal weight. HENT: Head: Normocephalic and atraumatic. Nose: Nose normal. Eyes: Conjunctiva/sclera: Conjunctivae normal. Cardiovascular: Rate and Rhythm: Normal rate and regular rhythm. Heart sounds: Normal heart sounds. Abdominal: General: Bowel sounds are normal. Musculoskeletal: General: No swelling. Skin: General: Skin is warm and dry. Neurological: General: No focal deficit present. Mental Status: He is alert and oriented to person, place, and time. Psychiatric: Mood and Affect: Mood normal. Agree. PM pouch site appears benign. [facility] within last 24 hours No results found for: WBC, HGB, HCT, PLT, MCV SODIUM Date Value Ref Range Status 01/20/2024 136 135 - 145 mmol/L Final POTASSIUM Date Value Ref Range Status 01/20/2024 3.8 3.5 - 5.1 mmol/L Final CHLORIDE Date Value Ref Range Status 01/20/2024 103 98 - 107 mmol/L Final CARBON DIOXIDE Date Value Ref Range Status 01/20/2024 17 (L) 22 - 30 mmol/L Final UREA NITROGEN Date Value Ref Range Status 01/20/2024 73 (H) 9 - 20 mg/dL Final CREATININE Date Value Ref Range Status 01/20/2024 10.80 (H) 0.66 - 1.25 mg/dL Final GLUCOSE Date Value Ref Range Status 01/20/2024 127 (H) 70 - 100 mg/dL Final CALCIUM Date Value Ref Range Status 01/20/2024 10.5 (H) 8.4 - 10.4 mg/dL Final No results found for: AST, ALT, PROT, BILITOT, ALKPHOS, INR, APTT, LIPASE No results found for: CKTOTAL, CKMB, TROPONINI No results found for: PROCAL, CHOL, TRIG, HDL, TSH, VITD25, HGBA1C, VANCOTROUGH Assessment and Plan: Sick sinus syndrome with presyncope - Episode of symptomatic junctional bradycardia today with rates in 30s - No known previous cardiac history - TSH 1.356 Plan: - Hold CCB (felodipine) - no current cardiac medications - EP consult; - pacemaker placed 01/19/2024 - OK for discharge - TTE --> EF 54%. Normal RV fnt. 1+ AI, trace MR. IVC collapse <50% Agree. ESRD on PD HAGMA likely 2/2 uremia Secondary Hyperparathyroidism - Follows with Dr. Rylee Coronel from [place] for nephrology - calcium improving over admission - Unclear if calcium contributed to junctional bradycardia Plan: - Nephrology consult - PD, instructions in nephrology note - Nephrocaps daily - PD site care - Sevelamer 3200 TID - Vitamin D 18 - cholecalciferol 1000 u daily - Hold calcitriol Agree. Normocytic anemia - Likely anemia of chronic disease +/- iron deficiency - No concern for acute bleeding Plan: - Continue home ferrous sulfate - Monitor via every other day CBC Chronic Problems and Follow Up Items: T2DM - A1C 7.1 Plan: - home glargine 30 units daily - LDISS with meals - Hypoglycemia protocol - Goals of Care: FULL CODE - DVT Prophylaxis: Heparin - GI Prophylaxis: Not Indicated - Diet: General, Carb-Control, and Renal - Disposition: Home today pending EP eval Attending Supervising Physician's Attestation Statement for Discharge I performed a history and physical examination on the patient and discussed the management with the residen (more content not included)...[facility] [id number] NotePatient Name: Noé Hughes Patient : 1950 Acct: [id number] Date of Admission: 01/17/2024 Room/Bed: [facility] A Code Status: Full Code Allergies: No Known Allergies Diagnosis: Patient Active Problem List Diagnosis Junctional bradycardia Treatment: Peritoneal Dialysis Treatment Start Time: 2009 Priority: Routine Location: Bedside Diabetic: Yes NPO: No Isolation Precautions: Dialysis Consent for Treatment Verified: Yes Report Received from Primary RN at 2000 Primary RN (First Initial, Last Name, Title): Leydi postlewaite, RN Incapacitated Nurse Education Completed: Not Applicable HBsAg ONLY: Date Drawn: January 18, 2024 Results: Negative HBsAb: Date Drawn: January 18, 2024 Results: Immune >10 Safety Verified: Identify (I), Consent (C), Equipment (E), HepB Status (B), Orders Complete (O), Access Verified (A), and Timeliness (T) Time out performed prior to access at 2007 Access to be Utilized Access: Peritoneal Catheter Side: Left Location: Lower Exit Site Assessment Signs and Symptoms of Infection/Inflammation: Yes, see line below If yes: Green pus Exit site dressing change: Completed Notified provider Labs Recent Labs 01/17/24213401/19/24 0603 WBC 9.6 5.4 HGB 12.0* 11.9* HCT 35.2* 34.9* PLT 241 216 Recent Labs 01/17/24213401/18/24 0008 01/19/24 0603 NA 136 134* 135 K 4.2 4.0 4.0 CL 101 102 100 CO2 21* 19* 21* BUN 70* 71* 74* CREATININE 11.51* 11.20* 11.13* GLUCOSE 87 135* 133* PHOS 7.2* -- -- Pre-treatment Assessment 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 Pain Level: 2 Pain Description: aching Pain Action: Medicated Vital Signs Patient Vitals for the past 24 hrs: BP Temp Temp src Pulse Resp SpO2 01/18/248 (!) 167/77 36.7 ?C (98 ?F) Temporal 59 18 100 % 01/18/24 2200 159/84 36.3 ?C (97.3 ?F) Temporal 62 20 99 % 01/19/24 0144 145/81 36.1 ?C (97 ?F) Temporal 58 18 100 % 01/19/24 0540 131/75 (!) 35.9 ?C (96.6 ?F) Temporal 58 16 98 % 01/19/24 1012 (!) 146/81 (!) 35.6 ?C (96.1 ?F) Temporal 63 16 96 % 01/19/24 1028 158/78 (!) 35.6 ?C (96.1 ?F) Temporal 60 -- 94 % 01/19/24 1030 147/77 (!) 35.7 ?C (96.2 ?F) Temporal 60 16 97 % 01/19/24 1031 147/77 (!) 35.7 ?C (96.2 ?F) Temporal 60 18 97 % 01/19/24 1045 156/79 -- -- 63 16 98 % 01/19/24 1100 150/75 -- -- 60 -- 95 % 01/19/24 1101 141/76 -- -- 63 -- 99 % 01/19/24 1101 -- -- -- 63 -- 98 % 01/19/24 1124 157/74 -- -- 67 -- 99 % 01/19/24 1131 147/76 -- -- 68 -- 100 % 01/19/24 1203 127/65 -- -- 65 -- 99 % 01/19/24 1309 131/75 36 ?C (96.8 ?F) Temporal 62 17 99 % 01/19/24 1626 160/81 -- -- 67 -- -- 01/19/24 1630 160/84 36 ?C (96.8 ?F) Temporal 61 16 98 % 01/19/24 1710 149/76 36.6 ?C (97.9 ?F) Temporal 60 18 100 % 01/19/24 1808 (!) 163/78 36.4 ?C (97.6 ?F) Temporal 62 17 100 % 01/19/242009 157/81 36.4 ?C (97.6 ?F) 65 18 100 % Height: 170.2 cm (5' 7) Weight: 72.6 kg (160 lb) Peritoneal Dialysis Exchange Number: 5 Dianeal Solution: Other (Comment) (2.5 in 6000m, 1.5 in 6000ml) Bag Weight (g): 6000 g Peritoneal Input Status: Started Peritoneal Output Status: Completed Effluent Appearance: Clear Peritoneal Dialysis Volume In (ml): 76511 ml Dwell Time: 0111 Effluent Volume Out (mL): 61612 ml Balance This Exchange (mL): 667 ml Treatment End Time: 0440 Comment: Provider Notification @FLOWTIME([id number])@ Post-treatment Assessment Pain Level: Pain Description: Pain Action: Handoff complete and report given to Primary RN at . Primary RN (First Initial, Last Name, Title): Education Person Educated: Patient Knowledge Base: Substantial Barriers to Learning?: Yes, including Language barrier Preferred method of Learning: Oral Topic(s): Access Care, Signs and Symptoms of Infection, Fluid Management, Albumin, Procedural, Medications, Treatment Options, Potassium, and Diet Teaching Tools: Explanation Response to Education: Verbalized Understanding [facility]09-01-2024 Procedure note* Rakesh Jenkins RN - 01/19/2024 8:14 PM EDT Associated Order(s): CONTINUOUS CYCLING PERITONEAL DIALYSIS Patient Name: Noé Hughes Patient : 1950 Acct: [id number] Date of Admission: 01/17/2024 Room/Bed: [facility] A Code Status: Full Code Allergies: No Known Allergies Diagnosis: Patient Active Problem List Diagnosis Junctional bradycardia Treatment: Peritoneal Dialysis Treatment Start Time: 2009 Priority: Routine Location: Bedside Diabetic: Yes NPO: No Isolation Precautions: Dialysis Consent for Treatment Verified: Yes Report Received from Primary RN at 2000 Primary RN (First Initial, Last Name, Title): Leydi barrera RN Incapacitated Nurse Education Completed: Not Applicable HBsAg ONLY: Date Drawn: January 18, 2024 Results: Negative HBsAb: Date Drawn: January 18, 2024 Results: Immune >10 Safety Verified: Identify (I), Consent (C), Equipment (E), HepB Status (B), Orders Complete (O), Access Verified (A), and Timeliness (T) Time out performed prior to access at 2007 Access to be Utilized Access: Peritoneal Catheter Side: Left Location: Lower Exit Site Assessment Signs and Symptoms of Infection/Inflammation: Yes, see line below If yes: Green pus Exit site dressing change: Completed Notified provider Labs Recent Labs 01/17/24213401/19/24 0603 WBC 9.6 5.4 HGB 12.0* 11.9* HCT 35.2* 34.9* PLT 241 216 Recent Labs 01/17/24213401/18/24 0008 01/19/24 0603 NA 136 134* 135 K 4.2 4.0 4.0 CL 101 102 100 CO2 21* 19* 21* BUN 70* 71* 74* CREATININE 11.51* 11.20* 11.13* GLUCOSE 87 135* 133* PHOS 7.2* -- -- Pre-treatment Assessment 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 Pain Level: 2 Pain Description: aching Pain Action: Medicated Vital Signs Patient Vitals for the past 24 hrs: BP Temp Temp src Pulse Resp SpO2 01/18/24 2058 (!) 167/77 36.7 C (98 F) Temporal 59 18 100 % 01/18/24 2200 159/84 36.3 C (97.3 F) Temporal 62 20 99 % 01/19/24 0144 145/81 36.1 C (97 F) Temporal 58 18 100 % 01/19/24 0540 131/75 (!) 35.9 C (96.6 F) Temporal 58 16 98 % 01/19/24 1012 (!) 146/81 (!) 35.6 C (96.1 F) Temporal 63 16 96 % 01/19/24 1028 158/78 (!) 35.6 C (96.1 F) Temporal 60 -- 94 % 01/19/24 1030 147/77 (!) 35.7 C (96.2 F) Temporal 60 16 97 % 01/19/24 1031 147/77 (!) 35.7 C (96.2 F) Temporal 60 18 97 % 01/19/24 1045 156/79 -- -- 63 16 98 % 01/19/24 1100 150/75 -- -- 60 -- 95 % 01/19/24 1101 141/76 -- -- 63 -- 99 % 01/19/24 1101 -- -- -- 63 -- 98 % 01/19/24 1124 157/74 -- -- 67 -- 99 % 01/19/24 1131 147/76 -- -- 68 -- 100 % 01/19/24 1203 127/65 -- -- 65 -- 99 % 01/19/24 1309 131/75 36 C (96.8 F) Temporal 62 17 99 % 01/19/24 1626 160/81 -- -- 67 -- -- 01/19/24 1630 160/84 36 C (96.8 F) Temporal 61 16 98 % 01/19/24 1710 149/76 36.6 C (97.9 F) Temporal 60 18 100 % 01/19/24 1808 (!) 163/78 36.4 C (97.6 F) Temporal 62 17 100 % 01/19/242009 157/81 36.4 C (97.6 F) Temporal 65 18 100 % Height: 170.2 cm (5' 7) Weight: 72.6 kg (160 lb) Peritoneal Dialysis Exchange Number: 5 Dianeal Solution: Other (Comment) (2.5 in 6000m, 1.5 in 6000ml) Bag Weight (g): 6000 g Peritoneal Input Status: Started Peritoneal Output Status: Completed Effluent Appearance: Clear Peritoneal Dialysis Volume In (ml): 54006 ml Dwell Time: 0111 Effluent Volume Out (mL): 95903 ml Balance This Exchange (mL): 667 ml Treatment End Time: 0440 Comment: Provider Notification @FLOWTIME([id number])@ Post-treatment Assessment Pain Level: Pain Description: Pain Action: Handoff complete and report given to Primary RN at . Primary RN (First Initial, Last Name, Title): Education Person Educated: Patient Knowledge Base: Substantial Barriers to Learning?: Yes, including Language barrier Preferred method of Learning: Oral Topic(s): Access Care, Signs and Symptoms of Infection, Fluid Management, Albumin, Procedural, Medications, Treatment Options, Potassium, and Diet Teaching Tools: Explanation Response to Education: Verbalized Understanding [id number] Procedure note* Rakesh Jenkins RN - 01/19/2024 8:14 PM EDTAssociated Order(s): CONTINUOUS CYCLING PERITONEAL DIALYSIS Patient Name: Noé Hughes Patient : 1950 Acct: [id number] Date of Admission: 01/17/2024 Room/Bed: [facility] A Code Status: Full Code Allergies: No Known Allergies Diagnosis: Patient Active Problem List Diagnosis Junctional bradycardia Treatment: Peritoneal Dialysis Treatment Start Time: 2009 Priority: Routine Location: Bedside Diabetic: Yes NPO: No Isolation Precautions: Dialysis Consent for Treatment Verified: Yes Report Received from Primary RN at 2000 Primary RN (First Initial, Last Name, Title): Leydi barrera, RN Incapacitated Nurse Education Completed: Not Applicable HBsAg ONLY: Date Drawn: January 18, 2024 Results: Negative HBsAb: Date Drawn: January 18, 2024 Results: Immune >10 Safety Verified: Identify (I), Consent (C), Equipment (E), HepB Status (B), Orders Complete (O), Access Verified (A), and Timeliness (T) Time out performed prior to access at 2007 Access to be Utilized Access: Peritoneal Catheter Side: Left Location: Lower Exit Site Assessment Signs and Symptoms of Infection/Inflammation: Yes, see line below If yes: Green pus Exit site dressing change: Completed Notified provider Labs Recent Labs 01/17/24213401/19/24 0603 WBC 9.6 5.4 HGB 12.0* 11.9* HCT 35.2* 34.9* PLT 241 216 Recent Labs 01/17/24213401/18/24 0008 01/19/24 0603 NA 136 134* 135 K 4.2 4.0 4.0 CL 101 102 100 CO2 21* 19* 21* BUN 70* 71* 74* CREATININE 11.51* 11.20* 11.13* GLUCOSE 87 135* 133* PHOS 7.2* -- -- Pre-treatment Assessment 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 Pain Level: 2 Pain Description: aching Pain Action: Medicated Vital Signs Patient Vitals for the past 24 hrs: BP Temp Temp src Pulse Resp SpO2 01/18/24 2058 (!) 167/77 36.7 C (98 F) Temporal 59 18 100 % 01/18/24 2200 159/84 36.3 C (97.3 F) Temporal 62 20 99 % 01/19/24 0144 145/81 36.1 C (97 F) Temporal 58 18 100 % 01/19/24 0540 131/75 (!) 35.9 C (96.6 F) Temporal 58 16 98 % 01/19/24 1012 (!) 146/81 (!) 35.6 C (96.1 F) Temporal 63 16 96 % 01/19/24 1028 158/78 (!) 35.6 C (96.1 F) Temporal 60 -- 94 % 01/19/24 1030 147/77 (!) 35.7 C (96.2 F) Temporal 60 16 97 % 01/19/24 1031 147/77 (!) 35.7 C (96.2 F) Temporal 60 18 97 % 01/19/24 1045 156/79 -- -- 63 16 98 % 01/19/24 1100 150/75 -- -- 60 -- 95 % 01/19/24 1101 141/76 -- -- 63 -- 99 % 01/19/24 1101 -- -- -- 63 -- 98 % 01/19/24 1124 157/74 -- -- 67 -- 99 % 01/19/24 1131 147/76 -- -- 68 -- 100 % 01/19/24 1203 127/65 -- -- 65 -- 99 % 01/19/24 1309 131/75 36 C (96.8 F) Temporal 62 17 99 % 01/19/24 1626 160/81 -- -- 67 -- -- 01/19/24 1630 160/84 36 C (96.8 F) Temporal 61 16 98 % 01/19/24 1710 149/76 36.6 C (97.9 F) Temporal 60 18 100 % 01/19/24 1808 (!) 163/78 36.4 C (97.6 F) Temporal 62 17 100 % 09/01/24 2010 157/81 36.4 C (97.6 F) Temporal 65 18 100 % Height: 170.2 cm (5' 7) Weight: 72.6 kg (160 lb) Peritoneal Dialysis Exchange Number: 5 Dianeal Solution: Other (Comment) (2.5 in 6000m, 1.5 in 6000ml) Bag Weight (g): 6000 g Peritoneal Input Status: Started Peritoneal Output Status: Completed Effluent Appearance: Clear Peritoneal Dialysis Volume In (ml): 29724 ml Dwell Time: 0111 Effluent Volume Out (mL): 72990 ml Balance This Exchange (mL): 667 ml Treatment End Time: 0440 Comment: Provider Notification @FLOWTIME([id number])@ Post-treatment Assessment Pain Level: Pain Description: Pain Action: Handoff complete and report given to Primary RN at . Primary RN (First Initial, Last Name, Title): Education Person Educated: Patient Knowledge Base: Substantial Barriers to Learning?: Yes, including Language barrier Preferred method of Learning: Oral Topic(s): Access Care, Signs and Symptoms of Infection, Fluid Management, Albumin, Procedural, Medications, Treatment Options, Potassium, and Diet Teaching Tools: Explanation Response to Education: Verbalized Understanding * Rakesh Jenkins RN - 01/19/2024 8:47 AM EDT Patient Name: Noé Hughes Patient : 1950 Acct: [id number] Date of Admission: 01/17/2024 Room/Bed: [facility] Cardiac Cath Pool Ro* Code Status: Full Code Allergies: No Known Allergies Diagnosis: Patient Active Problem List Diagnosis Junctional bradycardia Treatment: Peritoneal Dialysis Treatment Start Time: 2057 Priority: Routine Location: Bedside Diabetic: Yes NPO: No Isolation Precautions: Dialysis Consent for Treatment Verified: Yes Report Received from Primary RN at 2049 Primary RN (First Initial, Last Name, Title): Leydi Barrera RN Incapacitated Nurse Education Completed: Not Applicable HBsAg ONLY: Date Drawn: Results: Unknown HBsAb: Date Drawn: Results: Unknown Safety Verified: Identify (I), Consent (C), Equipment (E), HepB Status (B), Orders Complete (O), Access Verified (A), and Timeliness (T) Time out performed prior to access at 2054 Access to be Utilized Access: Peritoneal Catheter Side: Left Location: Lower Exit Site Assessment Signs and Symptoms of Infection/Inflammation: Pt has small amount of green colored pus at exit site, notified DR Vela If yes: pus Exit site dressing change: Completed Labs Recent Labs 01/17/24213401/19/24 0603 WBC 9.6 5.4 HGB 12.0* 11.9* HCT 35.2* 34.9* PLT 241 216 Recent Labs 01/17/24213401/18/24 0008 01/19/24 0603 NA 136 134* 135 K 4.2 4.0 4.0 CL 101 102 100 CO2 21* 19* 21* BUN 70* 71* 74* CREATININE 11.51* 11.20* 11.13* GLUCOSE 87 135* 133* PHOS 7.2* -- -- Pre-treatment Assessment 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 Pain Level: Pain Description: Pain Action: Vital Signs Patient Vitals for the past 24 hrs: BP Temp Temp src Pulse Resp SpO2 Height Weight 01/18/24 1157 155/69 36.7 C (98 F) Temporal 56 18 99 % -- -- 01/18/24 1503 152/71 36.4 C (97.5 F) Temporal 58 16 98 % -- -- 01/18/24 1611 -- -- -- -- -- -- 1.702 m (5' 7) 72.6 kg (160 lb) 01/18/24 1840 151/70 37.1 C (98.7 F) Temporal 57 18 96 % -- -- 01/18/242057 (!) 167/77 36.7 C (98 F) Temporal 59 18 100 % -- -- 01/18/24 2200 159/84 36.3 C (97.3 F) Temporal 62 20 99 % -- -- 01/19/24 0144 145/81 36.1 C (97 F) Temporal 58 18 100 % -- -- 01/19/24 0540 131/75 (!) 35.9 C (96.6 F) Temporal 58 16 98 % -- -- Height: 170.2 cm (5' 7) Weight: 72.6 kg (160 lb) Peritoneal Dialysis Exchange Number: 5 Dianeal Solution: Other (Comment) (2.5% in 6000ml) Bag Weight (g): 6 g Peritoneal Input Status: Started Peritoneal Output Status: Completed Effluent Appearance: Clear Peritoneal Dialysis Volume In (ml): 01359 ml Dwell Time: 0111 Effluent Volume Out (mL): 99972 ml Balance This Exchange (mL): 667 ml Treatment End Time: 0458 Comment: Provider Notification @FLOWTIME([id number])@ Post-treatment Assessment Dialysis arrived to pt room. The pt disconnected self this AM for a procedure, Effluent was clear no fibrin noted. Pain Level: Pain Description: Pain Action: Handoff complete and report given to Primary RN at . 0850 Primary RN (First Initial, Last Name, Title): Madalyn Saavedra RN Education Person Educated: Patient Knowledge Base: Substantial Barriers to Learning?: Yes, including Language barrier Preferred method of Learning: Visual Topic(s): Signs and Symptoms of Infection and Fluid Management Teaching Tools: Explanation Response to Education: Verbalized Understanding * Rakesh Jenkins RN - 01/18/2024 8:59 PM EDTAssociated Order(s): CONTINUOUS CYCLING PERITONEAL DIALYSIS Patient Name: Noé Hughes Patient : 1950 Acct: [id number] Date of Admission: 01/17/2024 Room/Bed: [facility] A Code Status: Full Code Allergies: No Known Allergies Diagnosis: Patient Active Problem List Diagnosis Junctional bradycardia Treatment: Peritoneal Dialysis Treatment Start Time: 2057 Priority: Routine Location: Bedside Diabetic: Yes NPO: No Isolation Precautions: Dialysis Consent for Treatment Verified: Yes Report Received from Primary RN at 2049 Primary RN (First Initial, Last Name, Title): Leydi Barrera RN Incapacitated Nurse Education Completed: Not Applicable HBsAg ONLY: Date Drawn: Results: Unknown HBsAb: Date Drawn: Results: Unknown Safety Verified: Identify (I), Consent (C), Equipment (E), HepB Status (B), Orders Complete (O), Access Verified (A), and Timeliness (T) Time out performed prior to access at 2054 Access to be Utilized Access: Peritoneal Catheter Side: Left Location: Lower Exit Site Assessment Signs and Symptoms of Infection/Inflammation: Pt has small amount of green colored pus at exit site, notified DR Vela If yes: pus Exit site dressing change: Completed Labs Recent Labs 01/17/242134 WBC 9.6 HGB 12.0* HCT 35.2* PLT 241 Recent Labs 01/17/24213401/18/24 0008 NA 136 134* K 4.2 4.0 CL 101 102 CO2 21* 19* BUN 70* 71* CREATININE 11.51* 11.20* GLUCOSE 87 135* PHOS 7.2* -- Pre-treatment Assessment 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 Pain Level: Pain Description: Pain Action: Vital Signs Patient Vitals for the past 24 hrs: BP Temp Temp src Pulse Resp SpO2 Height Weight 01/17/242131 (!) 149/62 -- -- 59 17 97 % -- -- 01/17/24 2215 (!) 160/85 -- -- 57 18 98 % -- -- 01/17/24 2230 (!) 164/65 -- -- 58 20 98 % -- -- 01/17/24 2300 (!) 160/63 -- -- 56 16 98 % -- -- 01/17/24 2315 -- -- -- 54 19 98 % -- -- 01/18/24 0000 (!) 142/68 -- -- 54 13 96 % -- -- 01/18/24 0015 (!) 142/68 -- -- 57 15 99 % -- -- 01/18/24 0110 (!) 153/65 -- -- 58 13 99 % -- -- 01/18/24 0137 155/73 (!) 35.7 C (96.2 F) Temporal 57 18 99 % -- -- 01/18/24 0617 147/69 36.3 C (97.4 F) Temporal 54 17 97 % -- -- 01/18/24 1157 155/69 36.7 C (98 F) Temporal 56 18 99 % -- -- 01/18/24 1503 152/71 36.4 C (97.5 F) Temporal 58 16 98 % -- -- 01/18/24 1611 -- -- -- -- -- -- 1.702 m (5' 7) 72.6 kg (160 lb) 01/18/24 1840 151/70 37.1 C (98.7 F) Temporal 57 18 96 % -- -- 01/18/242057 (!) 167/77 36.7 C (98 F) Temporal 59 18 100 % -- -- Height: 170.2 cm (5' 7) Weight: 72.6 kg (160 lb) Peritoneal Dialysis Exchange Number: 5 Dianeal Solution: Other (Comment) (2.5% in 6000ml) Bag Weight (g): 6 g Peritoneal Input Status: Started Treatment End Time: 457 Comment: Provider Notification @FLOWTIME([id number])@ Post-treatment Assessment Pain Level: Pain Description: Pain Action: Handoff complete and report given to Primary RN at . Primary RN (First Initial, Last Name, Title): Education Person Educated: Patient Knowledge Base: Substantial Barriers to Learning?: Yes, including Language barrier Preferred method of Learning: Visual Topic(s): Signs and Symptoms of Infection and Fluid Management Teaching Tools: Explanation Response to Education: Verbalized Understanding documented in this [facility]09-01-2024 NoteNEPHROLOGY PROGRESS NOTE PATIENT NAME: Noé Hughes ROOM: [facility]/[address] SERVICE DATE: 01/19/2024 SERVICE TIME: 3:45 PM LENGTH OF STAY: 2 day(s) REFERRING PHYSICIAN: Briana Lynn MD PRIMARY CARE PHYSICIAN: PRUDENCIO JACKSON MD OUTPATIENT ADAPTED PHYSICAL EDUCATION AIDE: DO Hailee Guzman/HPI Patient was seen and examined this afternoon, and his was present at the bedside on evaluation. pigment pumper services were used to facilitate conversation. He admits to having some discomfort to the bottom of his feet. His notes that his car attendant recently increased his sevelamer from 3 tablets with meals to 4 tablets with meals. She states that he is scheduled for monthly labs with his local [facility] unit on 01/22/24. He denies concerns for dyspnea. His overnight PD session was with 667 cc UF. He underwent PPM placement earlier this morning. Objective Physical Exam Patient Vitals for the past 24 hrs: BP Temp Temp src Pulse Resp SpO2 Height Weight 01/19/24 1309 131/75 36 ?C (96.8 ?F) Temporal 62 17 99 % -- -- 01/19/24 1203 127/65 -- -- 65 -- 99 % -- -- 01/19/24 1131 147/76 -- -- 68 -- 100 % -- -- 01/19/24 1124 157/74 -- -- 67 -- 99 % -- -- 01/19/24 1101 -- -- -- 63 -- 98 % -- -- 01/19/24 1101 141/76 -- -- 63 -- 99 % -- -- 01/19/24 1100 150/75 -- -- 60 -- 95 % -- -- 01/19/24 1045 156/79 -- -- 63 16 98 % -- -- 01/19/24 1031 147/77 (!) 35.7 ?C (96.2 ?F) Temporal 60 18 97 % -- -- 01/19/24 1030 147/77 (!) 35.7 ?C (96.2 ?F) Temporal 60 16 97 % -- -- 01/19/24 1028 158/78 (!) 35.6 ?C (96.1 ?F) Temporal 60 -- 94 % -- -- 01/19/24 1012 (!) 146/81 (!) 35.6 ?C (96.1 ?F) Temporal 63 16 96 % -- -- 01/19/24 0540 131/75 (!) 35.9 ?C (96.6 ?F) Temporal 58 16 98 % -- -- 01/19/24 0144 145/81 36.1 ?C (97 ?F) Temporal 58 18 100 % -- -- 01/18/24 2200 159/84 36.3 ?C (97.3 ?F) Temporal 62 20 99 % -- -- 01/18/242057 (!) 167/77 36.7 ?C (98 ?F) Temporal 59 18 100 % -- -- 01/18/24 1840 151/70 37.1 ?C (98.7 ?F) Temporal 57 18 96 % -- -- 01/18/24 1611 -- -- -- -- -- -- 1.702 m (5' 7) 72.6 kg (160 lb) I/Os: Intake/Output Summary (Last 24 hours) at 01/19/2024 1545 Last data filed at 01/19/2024 0845 Gross per 24 hour Intake 47343 ml Output 41669 ml Net -667 ml Weight: Weight on Admission: 72.6 kg (160 lb) Wt Readings from Last 5 Encounters: 01/18/24 72.6 kg (160 lb) General: NAD, pleasant, cooperative Head: normocephalic, atraumatic Eyes: EOMI, sclera are anicteric ENT: hearing intact to spoken voice, mucus membranes are moist Cardiovascular: +S1 & S2 sounds, regular rate and rhythm, there is no LE edema Pulmonary: lungs are CTA bilaterally without wheezing, rales, or rhonchi Gastrointestinal: abdomen is soft, non-tender, non-distended, with left-sided PD catheter in place Neurological: awake, alert Skin: warm and dry, without rash to visible skin Recent Labs: Recent Labs 01/17/24213401/19/24 0603 WBC 9.6 5.4 HGB 12.0* 11.9* HCT 35.2* 34.9* MCV 88.9 89.3 PLT 241 216 No results found for: IRON, TIBC, FERRITIN No results found for: [id number], FOLATE Recent Labs 01/17/24213401/18/24 0008 01/19/24 0603 NA 136 134* 135 K 4.2 4.0 4.0 CL 101 102 100 CO2 21* 19* 21* BUN 70* 71* 74* CREATININE 11.51* 11.20* 11.13* GLUCOSE 87 135* 133* CALCIUM 11.7* 11.2* 10.7* MG 2.3 -- -- PHOS 7.2* -- -- ANIONGAP 14* 13 13 ALBUMIN -- 3.7 -- Lab Results Component Value Date PTH 62.3 (H) 01/17/2024 VITD25 18 (L) 01/19/2024 CAION 5.20 01/18/2024 Lab Results Component Value Date ALT 34 01/18/2024 AST 31 01/18/2024 No results for input(s): INR, PROTIME, PTT in the last 72 hours. No results for input(s): COLORU, CLARITYU, PH, PHUR, LABSPEC, GLUCOSEU, BLOODU, LEUKOCYTESUR, NITRITE, BILIRUBINUR, UROBILINOGEN, BACTERIA, AMORPHOUS, CASTS in the last 72 hours. No lab exists for component: PROTEINUA, KEYTONESU, RBCUA, WBCUA, CRYSTAL No results for input(s): NAUR, KUR, CLUR in the last 72 hours. No lab exists for component: CO2UR, CRUR No results found for: HEPBCAB, HEPCAB Current Inpatient Medications: atorvastatin, 20 mg, Oral, Daily B complex-vitamin C-folic acid, 1 capsule, Oral, Daily [Held by provider] calcitriol, 0.5 mcg, Oral, Daily docusate sodium, 100 mg, Oral, BID ferrous sulfate, 325 mg, Oral, BID WC [Held by provider] heparin, 5,000 Units, SubCUTAneous, 2 times per day insulin glargine, 30 Units, SubCUTAneous, q AM insulin lispro, 0-6 Units, SubCUTAneous, TID WC lactulose, 20 g, Oral, BID pantoprazole, 40 mg, Oral, qAM AC sevelamer carbonate, 800 mg, Oral, TID WC Assessment Noé Hughes is a 73 y.o. [place]er-speaking male with PMHx significant for ESRD on PD, HTN, HLD, DM type 2 who presented with near syncope in the setting of bradycardia and was admitted for further management. Nephrology is following for the provision o (more content not included)...[facility] [id number] NoteProcedure Details PROCEDURE: Implantation of a dual chamber permanent pacemaker. ASSISTANTS: None CATHETERS AND/OR DRAINS: Not applicable SPECIMENS: None APPROACH: Left Axillary Vein DEVICE IMPLANTED: Medtronic [id number], SN: [id number] LEAD INFORMATION: RA: Medtronic [id number], SN: [id number], P-wave 4.0mV, Impedance 627ohms, Threshold 1.0V@0.4ms RV: Medtronic [id number], SN: [id number], R-wave 9.8mv, Impedance 817ohms, Threshold 0.5V@0.4ms ESTIMATED BLOOD LOSS: 10 mL. COMPLICATIONS: None. DESCRIPTION OF PROCEDURE: The patient was brought to the electrophysiology laboratory in a fasting state and intravenous sedation was provided as needed with Versed and fentanyl. The left neck and chest were prepped and draped in the usual manner and the skin and subcutaneous tissues below the left clavicle were infiltratedwith 1% lidocaine for local anesthesia. An incision was made below the left clavicle and electrocautery was used for hemostasis. Dissection was carried out to the level of the pectoralis fascia and extended caudally to create a pocket for the pulse generator. The axillary vein was accessed using the modified Seldinger technique with the aid of fluoroscopy. Two guide wires were advanced to the superior vena cava and peel-away introducer sheaths were used to insert the two pacing leads. A S10 sheath was used to position the lead on the RV septum. The position was too low based on unipolar pacing. The sheath was exchanged for the his sheath, which was positioned slightly higher on the septum. The lead was advanced into the septum using unipolar pacing, QRS morphology, impedance, and LVAT as a guide. Once adequate depth/position was achieved, the sheath was split using the splitting tool. The right atrial lead was placed in the right atrial appendage. The leads were tested with a pacing systems analyzer and the results are noted above. The leads were then anchored in place with #0-silk around their suture sleeve and connected to the pulse generator. The pacemaker was noted to function appropriately. The pocket was then irrigated with antibiotic solution and the pacemaker system was placed in the pocket. The incision was closed with three layers (2-0 Polysorb, 3-0 Polysorb, 4-0 Polysorb). The incision was dressed with an Optifoam dressing and the patient left the EP lab in stablecondition. ---[facility] [id number] NotePatient Name: Noé Hughes Patient : 1950 Acct: [id number] Date of Admission: 01/17/2024 Room/Bed: [facility] Cardiac Cath Pool Ro* Code Status: Full Code Allergies: No Known Allergies Diagnosis: Patient Active Problem List Diagnosis Junctional bradycardia Treatment: Peritoneal Dialysis Treatment Start Time: 2057 Priority: Routine Location: Bedside Diabetic: Yes NPO: No Isolation Precautions: Dialysis Consent for Treatment Verified: Yes Report Received from Primary RN at 2049 Primary RN (First Initial, Last Name, Title): Leydi Barrera RN Incapacitated Nurse Education Completed: Not Applicable HBsAg ONLY: Date Drawn: Results: Unknown HBsAb: Date Drawn: Results: Unknown Safety Verified: Identify (I), Consent (C), Equipment (E), HepB Status (B), Orders Complete (O), Access Verified (A), and Timeliness (T) Time out performed prior to access at 2054 Access to be Utilized Access: Peritoneal Catheter Side: Left Location: Lower Exit Site Assessment Signs and Symptoms of Infection/Inflammation: Pt has small amount of green colored pus at exit site, notified DR Vela If yes: pus Exit site dressing change: Completed Labs Recent Labs 01/17/24213401/19/24 0603 WBC 9.6 5.4 HGB 12.0* 11.9* HCT 35.2* 34.9* PLT 241 216 Recent Labs 01/17/24213401/18/24 0008 01/19/24 0603 NA 136 134* 135 K 4.2 4.0 4.0 CL 101 102 100 CO2 21* 19* 21* BUN 70* 71* 74* CREATININE 11.51* 11.20* 11.13* GLUCOSE 87 135* 133* PHOS 7.2* -- -- Pre-treatment Assessment 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 Pain Level: Pain Description: Pain Action: Vital Signs Patient Vitals for the past 24 hrs: BP Temp Temp src Pulse Resp SpO2 Height Weight 01/18/24 1157 155/69 36.7 ?C (98 ?F) Temporal 56 18 99 % -- -- 01/18/24 1503 152/71 36.4 ?C (97.5 ?F) Temporal 58 16 98 % -- -- 01/18/24 1611 -- -- -- -- -- -- 1.702 m (5' 7) 72.6 kg (160 lb) 01/18/24 1840 151/70 37.1 ?C (98.7 ?F) Temporal 57 18 96 % -- -- 01/18/242057 (!) 167/77 36.7 ?C (98 ?F) Temporal 59 18 100 % -- -- 01/18/24 2200 159/84 36.3 ?C (97.3 ?F) Temporal 62 20 99 % -- -- 01/19/24 0144 145/81 36.1 ?C (97 ?F) Temporal 58 18 100 % -- -- 01/19/24 0540 131/75 (!) 35.9 ?C (96.6 ?F) Temporal 58 16 98 % -- -- Height: 170.2 cm (5' 7) Weight: 72.6 kg (160 lb) Peritoneal Dialysis Exchange Number: 5 Dianeal Solution: Other (Comment) (2.5% in 6000ml) Bag Weight (g): 6 g Peritoneal Input Status: Started Peritoneal Output Status: Completed Effluent Appearance: Clear Peritoneal Dialysis Volume In (ml): 35951 ml Dwell Time: 0111 Effluent Volume Out (mL): 08922 ml Balance This Exchange (mL): 667 ml Treatment End Time: 0458 Comment: Provider Notification @FLOWTIME([id number])@ Post-treatment Assessment Dialysis arrived to pt room. The pt disconnected self this AM for a procedure, Effluent was clear no fibrin noted. Pain Level: Pain Description: Pain Action: Handoff complete and report given to Primary RN at . 0850 Primary RN (First Initial, Last Name, Title): Madalyn Saavedra RN Education Person Educated: Patient Knowledge Base: Substantial Barriers to Learning?: Yes, including Language barrier Preferred method of Learning: Visual Topic(s): Signs and Symptoms of Infection and Fluid Management Teaching Tools: Explanation Response to Education: Verbalized Understanding [facility] [id number] Procedure note* Rakesh Jenkins RN - 01/19/2024 8:47 AM EDT Patient Name: Noé Hughes Patient : 1950 Acct: [id number] Date of Admission: 01/17/2024 Room/Bed: [facility] Cardiac Cath Pool Ro* Code Status: Full Code Allergies: No Known Allergies Diagnosis: Patient Active Problem List Diagnosis Junctional bradycardia Treatment: Peritoneal Dialysis Treatment Start Time: 2057 Priority: Routine Location: Bedside Diabetic: Yes NPO: No Isolation Precautions: Dialysis Consent for Treatment Verified: Yes Report Received from Primary RN at 2049 Primary RN (First Initial, Last Name, Title): Leydi Barrera RN Incapacitated Nurse Education Completed: Not Applicable HBsAg ONLY: Date Drawn: Results: Unknown HBsAb: Date Drawn: Results: Unknown Safety Verified: Identify (I), Consent (C), Equipment (E), HepB Status (B), Orders Complete (O), Access Verified (A), and Timeliness (T) Time out performed prior to access at 2054 Access to be Utilized Access: Peritoneal Catheter Side: Left Location: Lower Exit Site Assessment Signs and Symptoms of Infection/Inflammation: Pt has small amount of green colored pus at exit site, notified DR Vela If yes: pus Exit site dressing change: Completed Labs Recent Labs 01/17/24213401/19/24 0603 WBC 9.6 5.4 HGB 12.0* 11.9* HCT 35.2* 34.9* PLT 241 216 Recent Labs 01/17/24213401/18/24 0008 01/19/24 0603 NA 136 134* 135 K 4.2 4.0 4.0 CL 101 102 100 CO2 21* 19* 21* BUN 70* 71* 74* CREATININE 11.51* 11.20* 11.13* GLUCOSE 87 135* 133* PHOS 7.2* -- -- Pre-treatment Assessment 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 Pain Level: Pain Description: Pain Action: Vital Signs Patient Vitals for the past 24 hrs: BP Temp Temp src Pulse Resp SpO2 Height Weight 01/18/24 1157 155/69 36.7 C (98 F) Temporal 56 18 99 % -- -- 01/18/24 1503 152/71 36.4 C (97.5 F) Temporal 58 16 98 % -- -- 01/18/24 1611 -- -- -- -- -- -- 1.702 m (5' 7) 72.6 kg (160 lb) 01/18/24 1840 151/70 37.1 C (98.7 F) Temporal 57 18 96 % -- -- 01/18/242057 (!) 167/77 36.7 C (98 F) Temporal 59 18 100 % -- -- 01/18/24 2200 159/84 36.3 C (97.3 F) Temporal 62 20 99 % -- -- 01/19/24 0144 145/81 36.1 C (97 F) Temporal 58 18 100 % -- -- 01/19/24 0540 131/75 (!) 35.9 C (96.6 F) Temporal 58 16 98 % -- -- Height: 170.2 cm (5' 7) Weight: 72.6 kg (160 lb) Peritoneal Dialysis Exchange Number: 5 Dianeal Solution: Other (Comment) (2.5% in 6000ml) Bag Weight (g): 6 g Peritoneal Input Status: Started Peritoneal Output Status: Completed Effluent Appearance: Clear Peritoneal Dialysis Volume In (ml): 43507 ml Dwell Time: 0111 Effluent Volume Out (mL): 40524 ml Balance This Exchange (mL): 667 ml Treatment End Time: 0458 Comment: Provider Notification @FLOWTIME([id number])@ Post-treatment Assessment Dialysis arrived to pt room. The pt disconnected self this AM for a procedure, Effluent was clear no fibrin noted. Pain Level: Pain Description: Pain Action: Handoff complete and report given to Primary RN at . 0850 Primary RN (First Initial, Last Name, Title): Madalyn Saavedra RN Education Person Educated: Patient Knowledge Base: Substantial Barriers to Learning?: Yes, including Language barrier Preferred method of Learning: Visual Topic(s): Signs and Symptoms of Infection and Fluid Management Teaching Tools: Explanation Response to Education: Verbalized Understanding [id number] Nurse Note* Elena Saavedra RN - 01/19/2024 8:13 AM EDT Pt to go down to get pacer this AM. Pt still hooked up to their PD. Oncall physical instructor called to help assist in getting patient unhooked from PD. Per dialysis nurse it is okay to have patient take himself off since he does it at home. With patient assistance this RN and patient unhooked him from PD. [id number] NoteMed Team Progress Note Noé Hughes : 1950(73 y.o.) Date: January 19, 2024 Med Team: Leydi Attending: Leah Chief Complaint: Presyncopy Subjective: - No acute events overnight. - Currently, the patient had his pacemaker placed today. He did not have any complaints. We updated pt that the neon pumper will see him tomorrow and make sure that he is recovering well prior to discharge. He was able to communicate the indication for his pacemaker and that plan back. Conversation was mediated by translation services. PRN meds used in last 24hrs: None Pt seen and examined earlier today on bedside resident teaching rounds. [employer] cost report clerk used to speak with pt and family at bedside. Hx and PE independently obtained and agree with above. Pt with no new questions/concerns. Family states they will have a ride home if pt discharged tomorrow as anticipated. Review of Systems Constitutional: Negative for chills and fatigue. Respiratory: Negative for cough and chest tightness. Cardiovascular: Negative for chest pain and palpitations. Agree. Scheduled Meds:sodium chloride, , , vancomycin, , , atorvastatin, 20 mg, Oral, Daily B complex-vitamin C-folic acid, 1 capsule, Oral, Daily [Held by provider] calcitriol, 0.5 mcg, Oral, Daily docusate sodium, 100 mg, Oral, BID ferrous sulfate, 325 mg, Oral, BID WC [Held by provider] heparin, 5,000 Units, SubCUTAneous, 2 times per day insulin glargine, 30 Units, SubCUTAneous, q AM insulin lispro, 0-6 Units, SubCUTAneous, TID WC lactulose, 20 g, Oral, BID pantoprazole, 40 mg, Oral, qAM AC sevelamer carbonate, 800 mg, Oral, TID WC vancomycin, 1,000 mg, IntraVENous, Once Continuous Infusions: Objective: BP 131/75 (BP Location: Right arm, Patient Position: Lying) Pulse 58 Temp (!) 35.9 ?C (96.6 ?F) (Temporal) Resp 16 Ht 5' 7 (1.702 m) Wt 160 lb (72.6 kg) SpO2 98% BMI 25.06 kg/m? Physical Exam Constitutional: General: He is not in acute distress. Appearance: Normal appearance. HENT: Head: Normocephalic. Right Ear: External ear normal. Left Ear: External ear normal. Nose: Nose normal. Eyes: Conjunctiva/sclera: Conjunctivae normal. Cardiovascular: Rate and Rhythm: Normal rate and regular rhythm. Pulses: Normal pulses. Heart sounds: Normal heart sounds. Pulmonary: Effort: Pulmonary effort is normal. Breath sounds: Normal breath sounds. Skin: General: Skin is warm and dry. Neurological: Mental Status: He is alert. Awake, alert, cooperative. Makes good eye contact. HEENT- MMM. Neck-supple Cor- RRR, nl S1S2. Chest wall- new PM left upper chest. Incision clean. Lungs- CTA. Abd (+) BS, soft NT. Ext- no edema. Select Labs within last 24 hours Auto WBC Date Value Ref Range Status 01/19/2024 5.4 3.6 - 10.7 10*3/uL Final Hemoglobin Date Value Ref Range Status 01/19/2024 11.9 (L) 13.0 - 18.0 g/dL Final Hematocrit Date Value Ref Range Status 01/19/2024 34.9 (L) 40.0 - 52.0 % Final Platelets Date Value Ref Range Status 01/19/2024 216 140 - 440 10*3/uL Final MCV Date Value Ref Range Status 01/19/2024 89.3 77.0 - 99.0 fL Final SODIUM Date Value Ref Range Status 01/19/2024 135 135 - 145 mmol/L Final POTASSIUM Date Value Ref Range Status 01/19/2024 4.0 3.5 - 5.1 mmol/L Final CHLORIDE Date Value Ref Range Status 01/19/2024 100 98 - 107 mmol/L Final CARBON DIOXIDE Date Value Ref Range Status 01/19/2024 21 (L) 22 - 30 mmol/L Final UREA NITROGEN Date Value Ref Range Status 01/19/2024 74 (H) 9 - 20 mg/dL Final CREATININE Date Value Ref Range Status 01/19/2024 11.13 (H) 0.66 - 1.25 mg/dL Final GLUCOSE Date Value Ref Range Status 01/19/2024 133 (H) 70 - 100 mg/dL Final CALCIUM Date Value Ref Range Status 01/19/2024 10.7 (H) 8.4 - 10.4 mg/dL Final No results found for: AST, ALT, PROT, BILITOT, ALKPHOS, INR, APTT, LIPASE No results found for: CKTOTAL, CKMB, TROPONINI No results found for: PROCAL, CHOL, TRIG, HDL, TSH, VITD25, HGBA1C, VANCOTROUGH Assessment and Plan: Sick sinus syndrome with presyncope - Episode of symptomatic junctional bradycardia today with rates in 30s - No known previous cardiac history - TSH 1.356 Plan: - Hold CCB (felodipine) - no current cardiac medications - EP consult; - pacemaker placed 01/19/2024 - OK for discharge tomorrow, pending overnight tele observation, placement CXR, and ` device interrogation - TTE --> EF 54%. Normal RV fnt. 1+ AI, trace MR. IVC collapse <50% Agree. ESRD on PD HAGMA likely 2/2 uremia Secondary Hyperparathyroidism - Follows with Dr. Rylee Coronel from [facility] nephrology - calcium improving over admission - Unclear if calcium contributed to junctional bradycardia Plan: - Nephrology consult - PD, instructions in nephrology note - Nephrocaps daily - PD site care - Sevelamer 800 TID - Vitamin D 18 (more content not included)...[facility]08-31-2024 NotePatient Name: Noé Hughes Patient : 1950 Acct: [id number] Date of Admission: 01/17/2024 Room/Bed: [facility] A Code Status: Full Code Allergies: No Known Allergies Diagnosis: Patient Active Problem List Diagnosis Junctional bradycardia Treatment: Peritoneal Dialysis Treatment Start Time: 2057 Priority: Routine Location: Bedside Diabetic: Yes NPO: No Isolation Precautions: Dialysis Consent for Treatment Verified: Yes Report Received from Primary RN at 2049 Primary RN (First Initial, Last Name, Title): Leydi Barrera RN Incapacitated Nurse Education Completed: Not Applicable HBsAg ONLY: Date Drawn: Results: Unknown HBsAb: Date Drawn: Results: Unknown Safety Verified: Identify (I), Consent (C), Equipment (E), HepB Status (B), Orders Complete (O), Access Verified (A), and Timeliness (T) Time out performed prior to access at 2054 Access to be Utilized Access: Peritoneal Catheter Side: Left Location: Lower Exit Site Assessment Signs and Symptoms of Infection/Inflammation: Pt has small amount of green colored pus at exit site, notified DR Vela If yes: pus Exit site dressing change: Completed Labs Recent Labs 01/17/242134 WBC 9.6 HGB 12.0* HCT 35.2* PLT 241 Recent Labs 01/17/24213401/18/24 0008 NA 136 134* K 4.2 4.0 CL 101 102 CO2 21* 19* BUN 70* 71* CREATININE 11.51* 11.20* GLUCOSE 87 135* PHOS 7.2* -- Pre-treatment Assessment 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 Pain Level: Pain Description: Pain Action: Vital Signs Patient Vitals for the past 24 hrs: BP Temp Temp src Pulse Resp SpO2 Height Weight 01/17/242131 (!) 149/62 -- -- 59 17 97 % -- -- 01/17/24 2215 (!) 160/85 -- -- 57 18 98 % -- -- 01/17/24 2230 (!) 164/65 -- -- 58 20 98 % -- -- 01/17/24 2300 (!) 160/63 -- -- 56 16 98 % -- -- 01/17/24 2315 -- -- -- 54 19 98 % -- -- 01/18/24 0000 (!) 142/68 -- -- 54 13 96 % -- -- 01/18/24 0015 (!) 142/68 -- -- 57 15 99 % -- -- 01/18/24 0110 (!) 153/65 -- -- 58 13 99 % -- -- 01/18/24 0137 155/73 (!) 35.7 ?C (96.2 ?F) Temporal 57 18 99 % -- -- 01/18/24 0617 147/69 36.3 ?C (97.4 ?F) Temporal 54 17 97 % -- -- 01/18/24 1157 155/69 36.7 ?C (98 ?F) Temporal 56 18 99 % -- -- 01/18/24 1503 152/71 36.4 ?C (97.5 ?F) Temporal 58 16 98 % -- -- 01/18/24 1611 -- -- -- -- -- -- 1.702 m (5' 7) 72.6 kg (160 lb) 01/18/24 1840 151/70 37.1 ?C (98.7 ?F) Temporal 57 18 96 % -- -- 01/18/242057 (!) 167/77 36.7 ?C (98 ?F) Temporal 59 18 100 % -- -- Height: 170.2 cm (5' 7) Weight: 72.6 kg (160 lb) Peritoneal Dialysis Exchange Number: 5 Dianeal Solution: Other (Comment) (2.5% in 6000ml) Bag Weight (g): 6 g Peritoneal Input Status: Started Treatment End Time: 457 Comment: Provider Notification @FLOWTIME([id number])@ Post-treatment Assessment Pain Level: Pain Description: Pain Action: Handoff complete and report given to Primary RN at . Primary RN (First Initial, Last Name, Title): Education Person Educated: Patient Knowledge Base: Substantial Barriers to Learning?: Yes, including Language barrier Preferred method of Learning: Visual Topic(s): Signs and Symptoms of Infection and Fluid Management Teaching Tools: Explanation Response to Education: Verbalized Understanding [facility]08-31-2024 Procedure note* Rakesh Jenkins RN - 01/18/2024 8:59 PM EDT Associated Order(s): CONTINUOUS CYCLING PERITONEAL DIALYSIS Patient Name: Noé Hughes Patient : 1950 Acct: [id number] Date of Admission: 01/17/2024 Room/Bed: [facility] A Code Status: Full Code Allergies: No Known Allergies Diagnosis: Patient Active Problem List Diagnosis Junctional bradycardia Treatment: Peritoneal Dialysis Treatment Start Time: 2057 Priority: Routine Location: Bedside Diabetic: Yes NPO: No Isolation Precautions: Dialysis Consent for Treatment Verified: Yes Report Received from Primary RN at 2049 Primary RN (First Initial, Last Name, Title): Leydi Barrera RN Incapacitated Nurse Education Completed: Not Applicable HBsAg ONLY: Date Drawn: Results: Unknown HBsAb: Date Drawn: Results: Unknown Safety Verified: Identify (I), Consent (C), Equipment (E), HepB Status (B), Orders Complete (O), Access Verified (A), and Timeliness (T) Time out performed prior to access at 2054 Access to be Utilized Access: Peritoneal Catheter Side: Left Location: Lower Exit Site Assessment Signs and Symptoms of Infection/Inflammation: Pt has small amount of green colored pus at exit site, notified DR Vela If yes: pus Exit site dressing change: Completed Labs Recent Labs 01/17/242134 WBC 9.6 HGB 12.0* HCT 35.2* PLT 241 Recent Labs 01/17/24213401/18/24 0008 NA 136 134* K 4.2 4.0 CL 101 102 CO2 21* 19* BUN 70* 71* CREATININE 11.51* 11.20* GLUCOSE 87 135* PHOS 7.2* -- Pre-treatment Assessment 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 Pain Level: Pain Description: Pain Action: Vital Signs Patient Vitals for the past 24 hrs: BP Temp Temp src Pulse Resp SpO2 Height Weight 01/17/242131 (!) 149/62 -- -- 59 17 97 % -- -- 01/17/24 2215 (!) 160/85 -- -- 57 18 98 % -- -- 01/17/24 2230 (!) 164/65 -- -- 58 20 98 % -- -- 01/17/24 2300 (!) 160/63 -- -- 56 16 98 % -- -- 01/17/24 2315 -- -- -- 54 19 98 % -- -- 01/18/24 0000 (!) 142/68 -- -- 54 13 96 % -- -- 01/18/24 0015 (!) 142/68 -- -- 57 15 99 % -- -- 01/18/24 0110 (!) 153/65 -- -- 58 13 99 % -- -- 01/18/24 0137 155/73 (!) 35.7 C (96.2 F) Temporal 57 18 99 % -- -- 01/18/24 0617 147/69 36.3 C (97.4 F) Temporal 54 17 97 % -- -- 01/18/24 1157 155/69 36.7 C (98 F) Temporal 56 18 99 % -- -- 01/18/24 1503 152/71 36.4 C (97.5 F) Temporal 58 16 98 % -- -- 01/18/24 1611 -- -- -- -- -- -- 1.702 m (5' 7) 72.6 kg (160 lb) 01/18/24 1840 151/70 37.1 C (98.7 F) Temporal 57 18 96 % -- -- 01/18/24 205 (!) 167/77 36.7 C (98 F) Temporal 59 18 100 % -- -- Height: 170.2 cm (5' 7) Weight: 72.6 kg (160 lb) Peritoneal Dialysis Exchange Number: 5 Dianeal Solution: Other (Comment) (2.5% in 6000ml) Bag Weight (g): 6 g Peritoneal Input Status: Started Treatment End Time: 457 Comment: Provider Notification @FLOWTIME([id number])@ Post-treatment Assessment Pain Level: Pain Description: Pain Action: Handoff complete and report given to Primary RN at . Primary RN (First Initial, Last Name, Title): Education Person Educated: Patient Knowledge Base: Substantial Barriers to Learning?: Yes, including Language barrier Preferred method of Learning: Visual Topic(s): Signs and Symptoms of Infection and Fluid Management Teaching Tools: Explanation Response to Education: Verbalized Understanding [facility] [id number] Consult note* Jany Awan DO - 01/18/2024 2:28 PM EDT Associated Order(s): IP CONSULT TO NEPHROLOGY Images from the original note were not included. NEPHROLOGY CONSULT NOTE PATIENT NAME: Noé Hughes [facility] DATE: 01/18/2024 SERVICE TIME: 2:28 PM LENGTH OF STAY: 1 day(s) REFERRING PHYSICIAN: Briana Lynn MD PRIMARY CARE PHYSICIAN: PRUDENCIO JACKSON MD OUTPATIENT ADAPTED PHYSICAL EDUCATION AIDE: Rylee Coronel DO Subjective/HPI Noébelinda Hughes is a 73 y.o. [place] Islander-speaking male with PMHx significant for ESRD on PD, HTN, HLD, DM type 2 who initially presented to the ED with near syncope in the setting of bradycardia,and he was admitted for further management. The nephrology service was consulted for the provision of inpatient dialysis. Patient was seen and examined, and his was at the bedside on evaluation.Conversation in [place] was facilitated through the assistance of their [id number] by phone. He follows with nephrology in [place]. He states that he typically uses half 1.5% and half 2.5% dextrose bags with his PD sessions overnight. He denies dyspnea or concerns for worsening peripheral edema at present. Review of Systems: Constitutional: no fatigue, no fever, no chills Eye: no double vision, no visual disturbances Ear/Nose/Mouth/Throat: no nasal congestion, no sore throat Respiratory: no shortness of breath, no cough, no sputum production Cardiovascular: no chest pain, no palpitations, no peripheral edema Gastrointestinal: no nausea, no vomiting, no diarrhea, no constipation, no abdominal pain Genitourinary: no dysuria, no hematuria, no change in urine stream Musculoskeletal: no joint pain, no muscle pain Integumentary: no rash, no breakdown, no skin lesion Neurologic: no confusion, no numbness, no tingling, +lightheadedness/dizziness Medical History: No past medical history on file. No past surgical history on file. No family history on file. Social History Socioeconomic History Marital status: Allergies: No Known Allergies Prior to Admission Medications: Medications Prior to Admission Medication Sig Dispense Refill Last Dose atorvastatin (Lipitor) 20 MG tablet Take 20 mg by mouth daily. 01/17/2024 B complex-vitamin C-folic acid (Nephro-Jordon Rx) 1 MG tablet Take 1 tablet by mouth daily (with breakfast). 01/17/2024 calcitriol (Rocaltrol) 0.5 MCG capsule Take 0.5 mcg by mouth daily. Per family, takes 2 tablets at noon 01/17/2024 docusate sodium (Colace) 100 MG capsule Take 100 mg by mouth 2 times daily. 01/17/2024 felodipine ER (Plendil) 10 MG 24 hr tablet Take 10 mg by mouth daily. Do not crush, chew, or split.01/17/2024 ferrous sulfate (FeroSul) 325 (65 Fe) MG tablet Take 325 mg by mouth in the morning and 325 mg in the evening. 01/17/2024 insulin glargine (Lantus) 100 UNIT/ML injection Inject 30 Units under the skin every morning. 01/17/2024 lactulose (Chronulac) 10 GM/15ML solution Take 20 g by mouth 2 times daily. 01/17/2024 pantoprazole (ProtoNix) 20 MG EC tablet Take 40 mg by mouth every morning (before breakfast). Do not crush, chew, or split. 01/17/2024 sevelamer (Renagel) 800 MG tablet Take 800 mg by mouth in the morning and 800 mg at noon and 800 mgin the evening. Take with meals. Swallow tablet whole; do not crush, break, or chew. Per patient's family: Takes 1 tablet in morning, 2 tablets at noon, 1 tablet in the evening. . 01/17/2024 Objective Physical Exam Patient Vitals for the past 24 hrs: BP Temp Temp src Pulse Resp SpO2 01/18/24 1157 155/69 36.7 C (98 F) Temporal 56 18 99 % 01/18/24 0617 147/69 36.3 C (97.4 F) Temporal 54 17 97 % 01/18/24 0137 155/73 (!) 35.7 C (96.2 F) Temporal 57 18 99 % 01/18/24 0110 (!) 153/65 -- -- 58 13 99 % 01/18/24 0015 (!) 142/68 -- -- 57 15 99 % 01/18/24 0000 (!) 142/68 -- -- 54 13 96 % 01/17/24 2315 -- -- -- 54 19 98 % 01/17/24 2300 (!) 160/63 -- -- 56 16 98 % 01/17/24 2230 (!) 164/65 -- -- 58 20 98 % 01/17/24 221 (!) 160/85 -- -- 57 18 98 % 01/17/242131 (!) 149/62 -- -- 59 17 97 % 01/17/242015 111/71 -- -- 60 16 99 % 01/17/241999 (!) 147/62 -- -- 57 17 96 % I/Os: Intake/Output Summary (Last 24 hours) at 01/18/2024 1428 Last data filed at 01/18/2024 0602 Gross per 24 hour Intake 360 ml Output -- Net 360 ml Weight: Weight on Admission: Wt Readings from Last 5 Encounters: No data found for Wt General: NAD, pleasant, cooperative Head: normocephalic, atraumatic Eyes: EOMI, sclera are anicteric ENT: hearing intact to spoken voice, mucus membranes are moist Cardiovascular: +S1 & S2 sounds, regular rate and rhythm, there is no LE edema Pulmonary: lungs are CTA bilaterally without wheezing, rales, or rhonchi Gastrointestinal: abdomen is soft, non-tender, non-distended, with left-sided PD catheter in place Neurological: awake, alert Skin: warm and dry, without rash to visible skin Recent Labs: Recent Labs 01/17/242134 WBC 9.6 HGB 12.0* HCT 35.2* MCV 88.9 PLT 241 No results found for: IRON, TIBC, FERRITIN No results found for: [id number], FOLATE Recent Labs 01/17/24213401/18/24 0008 NA 136 134* K 4.2 4.0 CL 101 102 CO2 21* 19* BUN 70* 71* CREATININE 11.51* 11.20* GLUCOSE 87 135* CALCIUM 11.7* 11.2* MG 2.3 -- PHOS 7.2* -- ANIONGAP 14* 13 ALBUMIN -- 3.7 Lab Results Component Value Date PTH 62.3 (H) 01/17/2024 CAION 5.20 01/18/2024 Lab Results Component Value Date ALT 34 01/18/2024 AST 31 01/18/2024 No results for input(s): INR, PROTIME, PTT in the last 72 hours. No results for input(s): COLORU, CLARITYU, PH, PHUR, LABSPEC, GLUCOSEU, BLOODU, LEUKOCYTESUR, NITRITE, BILIRUBINUR, UROBILINOGEN, BACTERIA, AMORPHOUS, CASTS in the last 72hours. No lab exists for component: PROTEINUA, KEYTONESU, RBCUA, WBCUA, CRYSTAL No results for input(s): NAUR, KUR, CLUR in the last 72 hours. No lab exists for component: CO2UR, CRUR No results found for: HEPBCAB, HEPCAB Current Inpatient Medications: atorvastatin, 20 mg, Oral, Daily B complex-vitamin C-folic acid, 1 capsule, Oral, Daily [Held by provider] calcitriol, 0.5 mcg, Oral, Daily docusate sodium, 100 mg, Oral, BID ferrous sulfate, 325 mg, Oral, BID WC heparin, 5,000 Units, SubCUTAneous, 2 times per day insulin glargine, 30 Units, SubCUTAneous, q AM insulin lispro, 0-6 Units, SubCUTAneous, TID WC lactulose, 20 g, Oral, BID pantoprazole, 40 mg, Oral, qAM AC [Held by provider] sevelamer carbonate, 800 mg, Oral, TID WC Assessment Noé Hughes is a 73 y.o. [place]-speaking male with PMHx significant for ESRD on PD, HTN, HLD, DM type 2 who presented with near syncope in the setting of bradycardia and was admitted forfurther management. Nephrology was consulted for the provision of inpatient dialysis. Plan ESRD on PD HOME prescription Mode: CCPD Exchanges: 5 cycles of 2,000 mL Solution: half 1.5% & half 2.5% bags Last Fill: none Total vol: 10.0 L for 8.5 hrs CURRENT prescription Mode: CCPD Exchanges: 5 cycles of 2,000 mL Solution: half 1.5% & half 2.5% bags Last Fill: none Total vol: 10.0 L for 8.5 hrs - Nephrocaps daily - follow chemistries - dose adjust medications to CrCl <10 - gentamycin to PD catheter exit site CKD-MBD - calcium is improved (ionized calcium level was acceptable at 5.20), agree with holding calcitriol - most recent phosphate was elevated at 7.2, resumed sevelamer 800 mg TID with meals - will check vitamin D level - PTH level was increased at 62.3 but acceptable and below target (150 to 600) in the setting of ESRD - will continue to follow Anemia - Hgb is acceptable and above goal in the setting of ESRD, would defer KYLE administration at present - follow CBC Lytes - serum Na corrected for hyperglycemia was acceptable at 135 - follow chemistries Acid base - NAGMA with serum bicarbonate mildly decreased at 19, will improve with dialysis - follow chemistries Volume/blood pressure - recent blood pressures are increased, should improve with fluid removal with dialysis Thank you for involving us in the care of this patient. We will continue to follow along with you. Please text/call/page with any questions or concerns. SIGNATURE: Jany Awan DO PATIENT NAME: Noé Hughes ROOM: 4[facility] A DATE: January 18, 2024 TIME: 2:28 PM PAGER: [phone] OFFICE: [phone] [facility]el08[facility]-3938 Consult note* Jany Awan DO - 01/18/2024 2:28 PM EDT Associated Order(s): IP CONSULT TO NEPHROLOGY Images from the original note were not included. NEPHROLOGY CONSULT NOTE PATIENT NAME: Noé Hughes ROOM: [facility] A SERVICE DATE: 01/18/2024 SERVICE TIME: 2:28 PM LENGTH OF STAY: 1 day(s) REFERRING PHYSICIAN: Briana Lynn MD PRIMARY CARE PHYSICIAN: PRUDENCIO JACKSON MD OUTPATIENT ADAPTED PHYSICAL EDUCATION AIDE: Rylee Coronel DO Subjective/HPI Noé Hughes is a 73 y.o. [place]-speaking male with PMHx significant for ESRD on PD, HTN, HLD, DM type 2 who initially presented to the ED with near syncope in the setting of bradycardia,and he was admitted for further management. The nephrology service was consulted for the provision of inpatient dialysis. Patient was seen and examined, and his was at the bedside on evaluation.Conversation in [place] was facilitated through the assistance of their [id number] by phone. He follows with nephrology in [place]. He states that he typically uses half 1.5% and half 2.5% dextrose bags with his PD sessions overnight. He denies dyspnea or concerns for worsening peripheral edema at present. Review of Systems: Constitutional: no fatigue, no fever, no chills Eye: no double vision, no visual disturbances Ear/Nose/Mouth/Throat: no nasal congestion, no sore throat Respiratory: no shortness of breath, no cough, no sputum production Cardiovascular: no chest pain, no palpitations, no peripheral edema Gastrointestinal: no nausea, no vomiting, no diarrhea, no constipation, no abdominal pain Genitourinary: no dysuria, no hematuria, no change in urine stream Musculoskeletal: no joint pain, no muscle pain Integumentary: no rash, no breakdown, no skin lesion Neurologic: no confusion, no numbness, no tingling, +lightheadedness/dizziness Medical History: No past medical history on file. No past surgical history on file. No family history on file. Social History Socioeconomic History Marital status: Allergies: No Known Allergies Prior to Admission Medications: Medications Prior to Admission Medication Sig Dispense Refill Last Dose atorvastatin (Lipitor) 20 MG tablet Take 20 mg by mouth daily. 01/17/2024 B complex-vitamin C-folic acid (Nephro-Jordon Rx) 1 MG tablet Take 1 tablet by mouth daily (with breakfast). 01/17/2024 calcitriol (Rocaltrol) 0.5 MCG capsule Take 0.5 mcg by mouth daily. Per family, takes 2 tablets at noon 01/17/2024 docusate sodium (Colace) 100 MG capsule Take 100 mg by mouth 2 times daily. 01/17/2024 felodipine ER (Plendil) 10 MG 24 hr tablet Take 10 mg by mouth daily. Do not crush, chew, or split.01/17/2024 ferrous sulfate (FeroSul) 325 (65 Fe) MG tablet Take 325 mg by mouth in the morning and 325 mg in the evening. 01/17/2024 insulin glargine (Lantus) 100 UNIT/ML injection Inject 30 Units under the skin every morning. 01/17/2024 lactulose (Chronulac) 10 GM/15ML solution Take 20 g by mouth 2 times daily. 01/17/2024 pantoprazole (ProtoNix) 20 MG EC tablet Take 40 mg by mouth every morning (before breakfast). Do not crush, chew, or split. 01/17/2024 sevelamer (Renagel) 800 MG tablet Take 800 mg by mouth in the morning and 800 mg at noon and 800 mgin the evening. Take with meals. Swallow tablet whole; do not crush, break, or chew. Per patient's family: Takes 1 tablet in morning, 2 tablets at noon, 1 tablet in the evening. . 01/17/2024 Objective Physical Exam Patient Vitals for the past 24 hrs: BP Temp Temp src Pulse Resp SpO2 01/18/24 1157 155/69 36.7 C (98 F) Temporal 56 18 99 % 01/18/24 0617 147/69 36.3 C (97.4 F) Temporal 54 17 97 % 01/18/24 0137 155/73 (!) 35.7 C (96.2 F) Temporal 57 18 99 % 01/18/24 0110 (!) 153/65 -- -- 58 13 99 % 01/18/24 0015 (!) 142/68 -- -- 57 15 99 % 01/18/24 0000 (!) 142/68 -- -- 54 13 96 % 01/17/24 2315 -- -- -- 54 19 98 % 01/17/24 2300 (!) 160/63 -- -- 56 16 98 % 01/17/24 2230 (!) 164/65 -- -- 58 20 98 % 01/17/24 2215 (!) 160/85 -- -- 57 18 98 % 01/17/242131 (!) 149/62 -- -- 59 17 97 % 01/17/242015 111/71 -- -- 60 16 99 % 01/17/241999 (!) 147/62 -- -- 57 17 96 % I/Os: Intake/Output Summary (Last 24 hours) at 01/18/2024 1428 Last data filed at 01/18/2024 0602 Gross per 24 hour Intake 360 ml Output -- Net 360 ml Weight: Weight on Admission: Wt Readings from Last 5 Encounters: No data found for Wt General: NAD, pleasant, cooperative Head: normocephalic, atraumatic Eyes: EOMI, sclera are anicteric ENT: hearing intact to spoken voice, mucus membranes are moist Cardiovascular: +S1 & S2 sounds, regular rate and rhythm, there is no LE edema Pulmonary: lungs are CTA bilaterally without wheezing, rales, or rhonchi Gastrointestinal: abdomen is soft, non-tender, non-distended, with left-sided PD catheter in place Neurological: awake, alert Skin: warm and dry, without rash to visible skin Recent Labs: Recent Labs 01/17/242134 WBC 9.6 HGB 12.0* HCT 35.2* MCV 88.9 PLT 241 No results found for: IRON, TIBC, FERRITIN No results found for: [id number], FOLATE Recent Labs 01/17/24213401/18/24 0008 NA 136 134* K 4.2 4.0 CL 101 102 CO2 21* 19* BUN 70* 71* CREATININE 11.51* 11.20* GLUCOSE 87 135* CALCIUM 11.7* 11.2* MG 2.3 -- PHOS 7.2* -- ANIONGAP 14* 13 ALBUMIN -- 3.7 Lab Results Component Value Date PTH 62.3 (H) 01/17/2024 CAION 5.20 01/18/2024 Lab Results Component Value Date ALT 34 01/18/2024 AST 31 01/18/2024 No results for input(s): INR, PROTIME, PTT in the last 72 hours. No results for input(s): COLORU, CLARITYU, PH, PHUR, LABSPEC, GLUCOSEU, BLOODU, LEUKOCYTESUR, NITRITE, BILIRUBINUR, UROBILINOGEN, BACTERIA, AMORPHOUS, CASTS in the last 72hours. No lab exists for component: PROTEINUA, KEYTONESU, RBCUA, WBCUA, CRYSTAL No results for input(s): NAUR, KUR, CLUR in the last 72 hours. No lab exists for component: CO2UR, CRUR No results found for: HEPBCAB, HEPCAB Current Inpatient Medications: atorvastatin, 20 mg, Oral, Daily B complex-vitamin C-folic acid, 1 capsule, Oral, Daily [Held by provider] calcitriol, 0.5 mcg, Oral, Daily docusate sodium, 100 mg, Oral, BID ferrous sulfate, 325 mg, Oral, BID WC heparin, 5,000 Units, SubCUTAneous, 2 times per day insulin glargine, 30 Units, SubCUTAneous, q AM insulin lispro, 0-6 Units, SubCUTAneous, TID WC lactulose, 20 g, Oral, BID pantoprazole, 40 mg, Oral, qAM AC [Held by provider] sevelamer carbonate, 800 mg, Oral, TID WC Assessment Noé Hughes is a 73 y.o. [place]-speaking male with PMHx significant for ESRD on PD, HTN, HLD, DM type 2 who presented with near syncope in the setting of bradycardia and was admitted forfurther management. Nephrology was consulted for the provision of inpatient dialysis. Plan ESRD on PD HOME prescription Mode: CCPD Exchanges: 5 cycles of 2,000 mL Solution: half 1.5% & half 2.5% bags Last Fill: none Total vol: 10.0 L for 8.5 hrs CURRENT prescription Mode: CCPD Exchanges: 5 cycles of 2,000 mL Solution: half 1.5% & half 2.5% bags Last Fill: none Total vol: 10.0 L for 8.5 hrs - Nephrocaps daily - follow chemistries - dose adjust medications to CrCl <10 - gentamycin to PD catheter exit site CKD-MBD - calcium is improved (ionized calcium level was acceptable at 5.20), agree with holding calcitriol - most recent phosphate was elevated at 7.2, resumed sevelamer 800 mg TID with meals - will check vitamin D level - PTH level was increased at 62.3 but acceptable and below target (150 to 600) in the setting of ESRD - will continue to follow Anemia - Hgb is acceptable and above goal in the setting of ESRD, would defer KYLE administration at present - follow CBC Lytes - serum Na corrected for hyperglycemia was acceptable at 135 - follow chemistries Acid base - NAGMA with serum bicarbonate mildly decreased at 19, will improve with dialysis - follow chemistries Volume/blood pressure - recent blood pressures are increased, should improve with fluid removal with dialysis Thank you for involving us in the care of this patient. We will continue to follow along with you. Please text/call/page with any questions or concerns. SIGNATURE: Jany Awan DO PATIENT NAME: Noé Montez Yanick ROOM: [facility] A DATE: January 18, 2024 TIME: 2:28 PM PAGER: [phone] OFFICE: [phone] * Meet Belinda Charles MD - 01/18/2024 10:23 AM EDTAssociated Order(s): IP CONSULT TO CARDIOLOGY [facility] [place] [facility] Cardiology /Electrophysiology Consult Note Reason for Consult/Chief Complaint: Junctional Bradycardia History of Present Illness: Noé Hughes is a 73 y.o. male with PMH of ESRD on PD and hypertension who presents after an episode of dizziness and presyncope. He was at [facility] with his family and all of a sudden didn't feel well. He felt dizzy and light-headed. They went to the pharmacy and checked his BP, which was very low. They quickly went to the [place] ED and he was found to be in a junctional rhythm with HR 30. He was given atropine and his rate improved and symptoms resolved. He was transferred to [facility] for further care. This has never happened in the past. His only significant abnormality was hypercalcemia. Patient is bolivian speaking and translation was provided by his daughter in law. Assessment/Plan Sick Sinus Syndrome - Will require pacemaker implantation. Will plan to do it on 01/19/2024. Please keep NPO after midnight tonight. - Echocardiogram pending Medications: atorvastatin, 20 mg, Oral, Daily B complex-vitamin C-folic acid, 1 capsule, Oral, Daily [Held by provider] calcitriol, 0.5 mcg, Oral, Daily docusate sodium, 100 mg, Oral, BID ferrous sulfate, 325 mg, Oral, BID WC heparin, 5,000 Units, SubCUTAneous, 2 times per day insulin glargine, 30 Units, SubCUTAneous, q AM insulin lispro, 0-6 Units, SubCUTAneous, TID WC lactulose, 20 g, Oral, BID pantoprazole, 40 mg, Oral, qAM AC [Held by provider] sevelamer carbonate, 800 mg, Oral, TID WC Infusion Medications: Physical Examination: Vitals: 01/18/24 0015 01/18/24 0110 01/18/24 0137 01/18/24 0617 BP: (!) 142/68 (!) 153/65 155/73 147/69 BP Location: Left arm Patient Position: Sitting Pulse: 57 58 57 54 Resp: 15 13 18 17 Temp: (!) 35.7 C (96.2 F) 36.3 C (97.4 F) TempSrc: Temporal Temporal SpO2: 99% 99% 99% 97% Intake/Output Summary (Last 24 hours) at 01/18/2024 1023 Last data filed at 01/18/2024 0602 Gross per 24 hour Intake 360 ml Output -- Net 360 ml Wt Readings from Last 3 Encounters: No data found for Wt Physical Exam Constitutional: Appearance: Normal appearance. HENT: Head: Normocephalic and atraumatic. Mouth/Throat: Mouth: Mucous membranes are moist. Eyes: Extraocular Movements: Extraocular movements intact. Cardiovascular: Rate and Rhythm: Normal rate and regular rhythm. Pulses: Normal pulses. Heart sounds: Normal heart sounds. Pulmonary: Effort: Pulmonary effort is normal. Breath sounds: Normal breath sounds. Abdominal: Palpations: Abdomen is soft. Musculoskeletal: General: Normal range of motion. Cervical back: Normal range of motion and neck supple. Skin: General: Skin is warm and dry. Neurological: General: No focal deficit present. Mental Status: He is alert and oriented to person, place, and time. Psychiatric: Mood and Affect: Mood normal. Behavior: Behavior normal. Thought Content: Thought content normal. Judgment: Judgment normal. Laboratory Tests: Recent Labs 01/17/24213401/18/24 0008 NA 136 134* K 4.2 4.0 CL 101 102 CO2 21* 19* BUN 70* 71* CREATININE 11.51* 11.20* EGFR 4.3* 4.4* Recent Labs 01/17/242134 TROPONINI 0.023 Recent Labs 01/17/242134 WBC 9.6 HGB 12.0* HCT 35.2* MCV 88.9 PLT 241 Lab Results Component Value Date HGBA1C 7.1 (H) 01/17/2024 Lab Results Component Value Date TSH 1.356 01/17/2024 No results found for: CHOL No results found for: HDL No results found for: LDLCALC No results found for: TRIG No results found for: CHOLHDL No results found for: LDLCHOLESTER No results for input(s): BNP in the last 72 hours. No results for input(s): INR in the last 72 hours. Results from last 7 days Lab Units 01/18/24 0008 AST U/L 31 ALT U/L 34 No results found for: IRON, TIBC, FERRITIN Radiology: CXR: personally reviewed: Cardiac Tests Personally Reviewed: Last EKG 01/17/24 ECG 12-LEAD 01/17/2024 10:34 PM (Final) Impression Sinus rhythm Borderline left axis deviation Electronically Signed On 01-17-2024 22:34:34 EDT by Rakesh Phillips Signed by: Rakesh Phillips MD on 01/17/2024 10:34 PM Reports reviewed: Last Echo No results found for this or any previous visit. Last Cath No results found for this or any previous visit. Last Stress Test No results found for this or any previous visit. Last EP study No results found for this or any previous visit. No results found for: EFBP, PLVEF, LVEFPHYS, LVEF2D, EF Giancarlo Charles MD DATE of SERVICE: 01/18/2024 documented in this [facility]08-31-2024 Consult note* Giancarlo Charles MD - 01/18/2024 10:23 AM EDTAssociated Order(s): IP CONSULT TO CARDIOLOGY [facility] [place] [facility] Cardiology /Electrophysiology Consult Note Reason for Consult/Chief Complaint: Junctional Bradycardia History of Present Illness: Noé Hughes is a 73 y.o. male with PMH of ESRD on PD and hypertension who presents after an episode of dizziness and presyncope. He was at [facility] with his family and all of a sudden didn't feel well. He felt dizzy and light-headed. They went to the pharmacy and checked his BP, which was very low. They quickly went to the [place] ED and he was found to be in a junctional rhythm with HR 30. He was given atropine and his rate improved and symptoms resolved. He was transferred to [facility] for further care. This has never happened in the past. His only significant abnormality was hypercalcemia. Patient is bolivian speaking and translation was provided by his daughter in law. Assessment/Plan Sick Sinus Syndrome - Will require pacemaker implantation. Will plan to do it on 01/19/2024. Please keep NPO after midnight tonight. - Echocardiogram pending Medications: atorvastatin, 20 mg, Oral, Daily B complex-vitamin C-folic acid, 1 capsule, Oral, Daily [Held by provider] calcitriol, 0.5 mcg, Oral, Daily docusate sodium, 100 mg, Oral, BID ferrous sulfate, 325 mg, Oral, BID WC heparin, 5,000 Units, SubCUTAneous, 2 times per day insulin glargine, 30 Units, SubCUTAneous, q AM insulin lispro, 0-6 Units, SubCUTAneous, TID WC lactulose, 20 g, Oral, BID pantoprazole, 40 mg, Oral, qAM AC [Held by provider] sevelamer carbonate, 800 mg, Oral, TID WC Infusion Medications: Physical Examination: Vitals: 01/18/24 0015 01/18/24 0110 01/18/24 0137 01/18/24 0617 BP: (!) 142/68 (!) 153/65 155/73 147/69 BP Location: Left arm Patient Position: Sitting Pulse: 57 58 57 54 Resp: 15 13 18 17 Temp: (!) 35.7 C (96.2 F) 36.3 C (97.4 F) TempSrc: Temporal Temporal SpO2: 99% 99% 99% 97% Intake/Output Summary (Last 24 hours) at 01/18/2024 1023 Last data filed at 01/18/2024 0602 Gross per 24 hour Intake 360 ml Output -- Net 360 ml Wt Readings from Last 3 Encounters: No data found for Wt Physical Exam Constitutional: Appearance: Normal appearance. HENT: Head: Normocephalic and atraumatic. Mouth/Throat: Mouth: Mucous membranes are moist. Eyes: Extraocular Movements: Extraocular movements intact. Cardiovascular: Rate and Rhythm: Normal rate and regular rhythm. Pulses: Normal pulses. Heart sounds: Normal heart sounds. Pulmonary: Effort: Pulmonary effort is normal. Breath sounds: Normal breath sounds. Abdominal: Palpations: Abdomen is soft. Musculoskeletal: General: Normal range of motion. Cervical back: Normal range of motion and neck supple. Skin: General: Skin is warm and dry. Neurological: General: No focal deficit present. Mental Status: He is alert and oriented to person, place, and time. Psychiatric: Mood and Affect: Mood normal. Behavior: Behavior normal. Thought Content: Thought content normal. Judgment: Judgment normal. Laboratory Tests: Recent Labs 01/17/24213401/18/24 0008 NA 136 134* K 4.2 4.0 CL 101 102 CO2 21* 19* BUN 70* 71* CREATININE 11.51* 11.20* EGFR 4.3* 4.4* Recent Labs 01/17/242134 TROPONINI 0.023 Recent Labs 01/17/242134 WBC 9.6 HGB 12.0* HCT 35.2* MCV 88.9 PLT 241 Lab Results Component Value Date HGBA1C 7.1 (H) 01/17/2024 Lab Results Component Value Date TSH 1.356 01/17/2024 No results found for: CHOL No results found for: HDL No results found for: LDLCALC No results found for: TRIG No results found for: CHOLHDL No results found for: LDLCHOLESTER No results for input(s): BNP in the last 72 hours. No results for input(s): INR in the last 72 hours. Results from last 7 days Lab Units 01/18/24 0008 AST U/L 31 ALT U/L 34 No results found for: IRON, TIBC, FERRITIN Radiology: CXR: personally reviewed: Cardiac Tests Personally Reviewed: Last EKG 01/17/24 ECG 12-LEAD 01/17/2024 10:34 PM (Final) Impression Sinus rhythm Borderline left axis deviation Electronically Signed On 01-17-2024 22:34:34 EDT by Rakesh Phillips Signed by: Rakesh Phillips MD on 01/17/2024 10:34 PM Reports reviewed: Last Echo No results found for this or any previous visit. Last Cath No results found for this or any previous visit. Last Stress Test No results found for this or any previous visit. Last EP study No results found for this or any previous visit. No results found for: EFBP, PLVEF, LVEFPHYS, LVEF2D, EF Giancarlo Charles MD DATE of SERVICE: 01/18/2024 [id number] Plan of care note* Care Plan - Diamond Lovett RN - 01/18/2024 5:12 AM EDT The patient is Moderately Unstable - Medium risk of patient condition declining or worsening The patient's goals for the shift include rest The clinical goals for the shift include remain hemodynamically stable. Problem: Pain - Adult Goal: Verbalizes/displays adequate comfort level or baseline comfort level 01/18/2024 0512 by Diamond Lovett RN Outcome: Progressing 01/18/2024 0356 by Diamond Lovett RN Outcome: Progressing Problem: Safety - Adult Goal: Free from fall injury 01/18/2024 0512 by Diamond Lovett RN Outcome: Progressing 01/18/2024 0356 by Diamond Lovett RN Outcome: Progressing Problem: Discharge Planning Goal: Discharge to home or other facility with appropriate resources 01/18/2024 0512 by Diamond Lovett RN Outcome: Progressing 01/18/2024 0356 by Diamond Lovett RN Outcome: Progressing Problem: Chronic Conditions and Co-morbidities Goal: Patient's chronic conditions and co-morbidity symptoms are monitored and maintained or improved 01/18/2024 0512 by Diamond Lovett RN Outcome: Progressing 01/18/2024 0356 by Diamond Lovett RN Outcome: Progressing [facility] [id number] Plan of care note* Care Plan - Diamond Lovett RN - 01/18/2024 3:56 AM EDT The patient is Moderately Unstable - Medium risk of patient condition declining or worsening The patient's goals for the shift include rest. The clinical goals for the shift include remain hemodynamically stable. Problem: Pain - Adult Goal: Verbalizes/displays adequate comfort level or baseline comfort level Outcome: Progressing Problem: Safety - Adult Goal: Free from fall injury Outcome: Progressing Problem: Discharge Planning Goal: Discharge to home or other facility with appropriate resources Outcome: Progressing Problem: Chronic Conditions and Co-morbidities Goal: Patient's chronic conditions and co-morbidity symptoms are monitored and maintained or improved Outcome: Progressing [facility] [id number] History and physical note* Briana Lynn MD - 01/17/2024 10:17 PM EDT Internal Medicine: Med Team Initial History and Physical Noé Hughes : 1950(73 y.o.) Date: January 17, 2024 TEAM: Leydi Attending: Dr. Lynn Subjective: Chief Complaint: Presyncope HPI Noé Hughes is a 73 y.o. male with PMH ESRD on daily PD that presented to [facility] on 01/17/2024 from outside facility ([place]) for junctional bradycardia. Around 11AM today, [facility] noted that he did not feel well and complained of dizziness. They checked his blood pressure in the store and found that it was low. He felt increasingly dizzy, so went to [place] ED. At that ED, EKG showed junctional bradycardia with HRin 30s. He was given atropine and question of additional intervention and junctional bradycardia resolved. Patient was transferred to [facility] for CCU evaluation. CCU fellow recommended telemetry admission with EP consult. In the ED at [facility], HR in upper 50s with stable blood pressure. Labs notable for HAGMA (bircarb 21, AG 14), creatinine consistent with ESRD, hypercalcemia (11.7). Negative troponin, normocytic anemia. EKG showed sinus rhythm. When seen at [facility], patient's [id number], Ivelisse, translates via telephone. Patient denies any CP, SOB, nausea, vomiting. He does PD nightly and has not missed a session. Denies recreational substances. Takes his medications as prescribed. Pt seen and examined earlier today on bedside resident teaching rounds the morning after admission.Hx and PE independently obtained and agrees with above. Pt speaks [place]. On teaching rounds translation was performed by the medical information specialist following the pt who is bilingual with [place] her first language. Pt reports feeling well at present. Does not currently have a PD dwell in situ. Review of Systems Constitutional: Negative for appetite change and fever. Respiratory: Negative for shortness of breath. Cardiovascular: Negative for chest pain and leg swelling. Gastrointestinal: Negative for constipation, diarrhea, nausea and vomiting. Genitourinary: Negative for difficulty urinating. Neurological: Negative for light-headedness. Psychiatric/Behavioral: Negative for agitation and confusion. Agree. No past medical history on file. No past surgical history on file. No family history on file. Social History Tobacco Use Smoking Status Not on file Smokeless Tobacco Not on file Social History Substance and Sexual Activity Alcohol Use Not on file Social History Substance and Sexual Activity Drug Use Not on file No Known Allergies Prior to Admission medications Not on File Objective: Vitals: 01/17/24 2016 01/17/24 2132 01/17/24 2215 01/17/24 2230 BP: 111/71 (!) 149/62 (!) 160/85 (!) 164/65 BP Location: Left arm Left arm Left arm Patient Position: Lying Lying Lying Pulse: 60 59 57 58 Resp: 16 17 18 20 SpO2: 99% 97% 98% 98% Physical Exam Constitutional: General: He is not in acute distress. Appearance: Normal appearance. He is not ill-appearing or toxic-appearing. HENT: Head: Normocephalic and atraumatic. Eyes: General: No scleral icterus. Extraocular Movements: Extraocular movements intact. Conjunctiva/sclera: Conjunctivae normal. Cardiovascular: Rate and Rhythm: Regular rhythm. Bradycardia present. Heart sounds: No murmur heard. No friction rub. No gallop. Pulmonary: Effort: Pulmonary effort is normal. No respiratory distress. Breath sounds: No wheezing, rhonchi or rales. Abdominal: General: Abdomen is flat. There is no distension. Comments: PD catheter in place Musculoskeletal: General: No deformity. Right lower leg: No edema. Left lower leg: No edema. Skin: General: Skin is warm and dry. Coloration: Skin is not jaundiced. Neurological: General: No focal deficit present. Mental Status: He is alert. Psychiatric: Mood and Affect: Mood normal. Morning after admission: A&Ox3. Cooperative. Makes good eye contact. HEENT- MMM. Neck-supple Cor- RRR, nl S1S2. Lungs- CTA. Abd (+) BS, soft NT. PD cath appears benign, no erythema. Ext- no edema. [facility] within last 24 hours Auto WBC Date Value Ref Range Status 01/17/2024 9.6 3.6 - 10.7 10*3/uL Final Hemoglobin Date Value Ref Range Status 01/17/2024 12.0 (L) 13.0 - 18.0 g/dL Final Hematocrit Date Value Ref Range Status 01/17/2024 35.2 (L) 40.0 - 52.0 % Final Platelets Date Value Ref Range Status 01/17/2024 241 140 - 440 10*3/uL Final MCV Date Value Ref Range Status 01/17/2024 88.9 77.0 - 99.0 fL Final SODIUM Date Value Ref Range Status 01/17/2024 136 135 - 145 mmol/L Final POTASSIUM Date Value Ref Range Status 01/17/2024 4.2 3.5 - 5.1 mmol/L Final CHLORIDE Date Value Ref Range Status 01/17/2024 101 98 - 107 mmol/L Final CARBON DIOXIDE Date Value Ref Range Status 01/17/2024 21 (L) 22 - 30 mmol/L Final UREA NITROGEN Date Value Ref Range Status 01/17/2024 70 (H) 9 - 20 mg/dL Final CREATININE Date Value Ref Range Status 01/17/2024 11.51 (H) 0.66 - 1.25 mg/dL Final GLUCOSE Date Value Ref Range Status 01/17/2024 87 70 - 100 mg/dL Final CALCIUM Date Value Ref Range Status 01/17/2024 11.7 (H) 8.4 - 10.4 mg/dL Final No results found for: AST, ALT, PROT, BILITOT, ALKPHOS, INR, APTT, LIPASE TROPONIN I Date Value Ref Range Status 01/17/2024 0.023 <0.034 ng/mL Final No results found for: PROCAL, CHOL, TRIG, HDL, TSH, VITD25, HGBA1C, VANCOTROUGH Assessment and Plan: Principal Problem: Junctional bradycardia Junctional bradycardia Presyncope - Episode of symptomatic junctional bradycardia today with rates in 30s - No known cardiac history - Seen by postdoctoral fellow who cleared patient for telemetry admission - Etiology: consider medication-induced (on CCB) vs electrolyte abnormality (hypercalcemia) vs infectious cause vs low suspicion for ischemic cause vs SSS Plan: - Admit to telemetry - Hold CCB - Check TSH - Give small fluid bolus in attempt to decrease calcium - Check TTE - EP consult Agree. Hypercalcemia - Calcium 11.7 - Unclear if new and/or contributed to junctional bradycardia Plan: - Recheck CMP and ionized calcium - Check PTH - Hold calcitriol - Hold calcium-based phosphate binder (Renvela) - Small fluid bolus in attempt to decrease calcium - Nephrology consult for PD. Will reach out to on-call car attendant regarding potential need for PDtonight in setting of hypercalcemia/arrhythmia Agree. ESRD on PD HAGMA likely 2/2 uremia - Follows with Dr. Rylee Coronel from [place] for nephrology - Per patient's car attendant for PD instructions: Does five exhanges of 2000 ML in 8.5 hours. It is one hour and 16 minutes dwell time. 2.5 calcium and 0.5 magnesium solution. [employer] system. Plan: - Nephrology consult for PD. Will reach out to on-call car attendant regarding potential need for PDtonight in setting of hypercalcemia/arrhythmia Agree. T2DM - Unknown A1C Plan: - Check A1C - Resume home glargine 30 units daily - LDISS with meals - Hypoglycemia protocol Agree. Normocytic anemia - Likely anemia of chronic disease +/- iron deficiency - No concern for acute bleeding Plan: - Continue home ferrous sulfate - Monitor via every other day CBC - Goals of Care: FULL CODE - DVT Prophylaxis: Heparin - GI Prophylaxis: Not Indicated - Diet: General, Carb-Control, and Renal - BMI Classification: There is no height or weight on file to calculate BMI. Normal (BMI 18.5-24.9) - Disposition: Admit to Telemetry. - Given the signs and symptoms associated with his primary diagnosis in the setting of his comorbidconditions, he is expected to require >48 hrs of hospital care (i.e. inpatient level care). Attending Supervising Physician's Attestation Statement for Admission I performed a history and physical examination on the patient and discussed the management with theresident physician. I reviewed and agree with the findings and plan as documented in their note except as amended in green font. Addendums may have been dictated using the [email or web address] Voice Recognition Feature. The document was proofread; however, unrecognized voice recognition field crop i farmworker errors may be present. Please note, the time of this note does not reflect the time I saw this patient today, but the time of this documentaton. Discussed with: [x]Residents [x]Patient [x]Family- family at bedside [x]RN []Consultants []SW/TCC [] PT/OT []Pharmacist []Other Reviewed: [x]Epic notes []Radiology studies [x]Labs [x]EKG []Other Initial Inpatient: Spent total time 75 minutes counseling or coordinating care, chart historical review, and discussion regarding presenting sxs with assistance of bilingual medical information specialist assignedto pt ([place] is first language). Tx plan reviewed with pt and family as well as med team. 7AM-5PM: contact resident on [facility] Med Team (found by hovering over attending's name on left side of patient's chart) 5PM-7AM: contact AI3 [id number] NoteInternal Medicine: Med Team Initial History and Physical Noé Hughes : 1950(73 y.o.) Date: January 17, 2024 TEAM: C Attending: Dr. Lynn Subjective: Chief Complaint: Presyncope HPI Noé Hughes is a 73 y.o. male with PMH ESRD on daily PD that presented to [facility] on 01/17/2024 from outside facility ([place]) for junctional bradycardia. Around 11AM today, patient was walking around [facility] when he noted that he did not feel well and complained of dizziness. They checked his blood pressure in the store and found that it was low. He felt increasingly dizzy, so went to [facility] ED. At that ED, EKG showed junctional bradycardia with HR in 30s. He was given atropine and question of additional intervention and junctional bradycardia resolved. Patient was transferred to [facility] for CCU evaluation. CCU fellow recommended telemetry admission with EP consult. In the ED at [facility], HR in upper 50s with stable blood pressure. Labs notable for HAGMA (bircarb 21, AG 14), creatinine consistent with ESRD, hypercalcemia (11.7). Negative troponin, normocytic anemia. EKG showed sinus rhythm. When seen at [facility], patient's [id number], Ivelisse, translates via telephone. Patient denies any CP, SOB, nausea, vomiting. He does PD nightly and has not missed a session. Denies recreational substances. Takes his medications as prescribed. Pt seen and examined earlier today on bedside resident teaching rounds the morning after admission. Hx and PE independently obtained and agrees with above. Pt speaks [place]. On teaching rounds translation was performed by the medical information specialist following the pt who is bilingual with [place] her first language. Pt reports feeling well at present. Does not currently have a PD dwell in situ. Review of Systems Constitutional: Negative for appetite change and fever. Respiratory: Negative for shortness of breath. Cardiovascular: Negative for chest pain and leg swelling. Gastrointestinal: Negative for constipation, diarrhea, nausea and vomiting. Genitourinary: Negative for difficulty urinating. Neurological: Negative for light-headedness. Psychiatric/Behavioral: Negative for agitation and confusion. Agree. No past medical history on file. No past surgical history on file. No family history on file. Social History Tobacco Use Smoking Status Not on file Smokeless Tobacco Not on file Social History Substance and Sexual Activity Alcohol Use Not on file Social History Substance and Sexual Activity Drug Use Not on file No Known Allergies Prior to Admission medications Not on File Objective: Vitals: 01/17/24201501/17/24 2132 01/17/24 2215 01/17/24 2230 BP: 111/71 (!) 149/62 (!) 160/85 (!) 164/65 BP Location: Left arm Left arm Left arm Patient Position: Lying Lying Lying Pulse: 60 59 57 58 Resp: 16 17 18 20 SpO2: 99% 97% 98% 98% Physical Exam Constitutional: General: He is not in acute distress. Appearance: Normal appearance. He is not ill-appearing or toxic-appearing. HENT: Head: Normocephalic and atraumatic. Eyes: General: No scleral icterus. Extraocular Movements: Extraocular movements intact. Conjunctiva/sclera: Conjunctivae normal. Cardiovascular: Rate and Rhythm: Regular rhythm. Bradycardia present. Heart sounds: No murmur heard. No friction rub. No gallop. Pulmonary: Effort: Pulmonary effort is normal. No respiratory distress. Breath sounds: No wheezing, rhonchi or rales. Abdominal: General: Abdomen is flat. There is no distension. Comments: PD catheter in place Musculoskeletal: General: No deformity. Right lower leg: No edema. Left lower leg: No edema. Skin: General: Skin is warm and dry. Coloration: Skin is not jaundiced. Neurological: General: No focal deficit present. Mental Status: He is alert. Psychiatric: Mood and Affect: Mood normal. Morning after admission: A&Ox3. Cooperative. Makes good eye contact. HEENT- MMM. Neck-supple Cor- RRR, nl S1S2. Lungs- CTA. Abd (+) BS, soft NT. PD cath appears benign, no erythema. Ext- no edema. [facility] within last 24 hours Auto WBC Date Value Ref Range Status 01/17/2024 9.6 3.6 - 10.7 10*3/uL Final Hemoglobin Date Value Ref Range Status 01/17/2024 12.0 (L) 13.0 - 18.0 g/dL Final Hematocrit Date Value Ref Range Status 01/17/2024 35.2 (L) 40.0 - 52.0 % Final Platelets Date Value Ref Range Status 01/17/2024 241 140 - 440 10*3/uL Final MCV Date Value Ref Range Status 01/17/2024 88.9 77.0 - 99.0 fL Final SODIUM Date Value Ref Range Status 01/17/2024 136 135 - 145 mmol/L Final POTASSIUM Date Value Ref Range Status 01/17/2024 4.2 3.5 - 5.1 mmol/L Final CHLORIDE Date Value Ref Range Status 01/17/2024 101 98 - 107 mmol/L Final CARBON DIOXIDE Date Value Ref Range Status 01/17/2024 21 (L) 22 - 30 mmol/L Final UREA NITROGEN Date Value Ref Range Status 01/17/2024 70 (H) 9 - 20 mg/dL Final C (more content not included)...[facility]08-30-2024 History and physical note* Briana Lynn MD - 01/17/2024 10:17 PM EDT Internal Medicine: Med Team Initial History and Physical Noé Hughes : 1950(73 y.o.) Date: January 17, 2024 TEAM: Leydi Attending: Dr. Lynn Subjective: Chief Complaint: Presyncope HPI Noé Hughes is a 73 y.o. male with PMH ESRD on daily PD that presented to [facility] on 01/17/2024 from outside facility ([place]) for junctional bradycardia. Around 11AM today, patient was walking around [facility] when he noted that he did not feel well and complained of dizziness. They checked his blood pressure in the store and found that it was low. He felt increasingly dizzy, so went to [place] ED. At that ED, EKG showed junctional bradycardia with HRin 30s. He was given atropine and question of additional intervention and junctional bradycardia resolved. Patient was transferred to [facility] for CCU evaluation. CCU fellow recommended telemetry admission with EP consult. In the ED at [facility], HR in upper 50s with stable blood pressure. Labs notable for HAGMA (bircarb 21, AG 14), creatinine consistent with ESRD, hypercalcemia (11.7). Negative troponin, normocytic anemia. EKG showed sinus rhythm. When seen at [facility], patient's [id number], Ivelisse, translates via telephone. Patient denies any CP, SOB, nausea, vomiting. He does PD nightly and has not missed a session. Denies recreational substances. Takes his medications as prescribed. Pt seen and examined earlier today on bedside resident teaching rounds the morning after admission.Hx and PE independently obtained and agrees with above. Pt speaks [place]. On teaching rounds translation was performed by the medical information specialist following the pt who is bilingual with [place] her first language. Pt reports feeling well at present. Does not currently have a PD dwell in situ. Review of Systems Constitutional: Negative for appetite change and fever. Respiratory: Negative for shortness of breath. Cardiovascular: Negative for chest pain and leg swelling. Gastrointestinal: Negative for constipation, diarrhea, nausea and vomiting. Genitourinary: Negative for difficulty urinating. Neurological: Negative for light-headedness. Psychiatric/Behavioral: Negative for agitation and confusion. Agree. No past medical history on file. No past surgical history on file. No family history on file. Social History Tobacco Use Smoking Status Not on file Smokeless Tobacco Not on file Social History Substance and Sexual Activity Alcohol Use Not on file Social History Substance and Sexual Activity Drug Use Not on file No Known Allergies Prior to Admission medications Not on File Objective: Vitals: 01/17/24201501/17/24 2132 01/17/24 2215 01/17/24 2230 BP: 111/71 (!) 149/62 (!) 160/85 (!) 164/65 BP Location: Left arm Left arm Left arm Patient Position: Lying Lying Lying Pulse: 60 59 57 58 Resp: 16 17 18 20 SpO2: 99% 97% 98% 98% Physical Exam Constitutional: General: He is not in acute distress. Appearance: Normal appearance. He is not ill-appearing or toxic-appearing. HENT: Head: Normocephalic and atraumatic. Eyes: General: No scleral icterus. Extraocular Movements: Extraocular movements intact. Conjunctiva/sclera: Conjunctivae normal. Cardiovascular: Rate and Rhythm: Regular rhythm. Bradycardia present. Heart sounds: No murmur heard. No friction rub. No gallop. Pulmonary: Effort: Pulmonary effort is normal. No respiratory distress. Breath sounds: No wheezing, rhonchi or rales. Abdominal: General: Abdomen is flat. There is no distension. Comments: PD catheter in place Musculoskeletal: General: No deformity. Right lower leg: No edema. Left lower leg: No edema. Skin: General: Skin is warm and dry. Coloration: Skin is not jaundiced. Neurological: General: No focal deficit present. Mental Status: He is alert. Psychiatric: Mood and Affect: Mood normal. Morning after admission: A&Ox3. Cooperative. Makes good eye contact. HEENT- MMM. Neck-supple Cor- RRR, nl S1S2. Lungs- CTA. Abd (+) BS, soft NT. PD cath appears benign, no erythema. Ext- no edema. [facility] within last 24 hours Auto WBC Date Value Ref Range Status 01/17/2024 9.6 3.6 - 10.7 10*3/uL Final Hemoglobin Date Value Ref Range Status 01/17/2024 12.0 (L) 13.0 - 18.0 g/dL Final Hematocrit Date Value Ref Range Status 01/17/2024 35.2 (L) 40.0 - 52.0 % Final Platelets Date Value Ref Range Status 01/17/2024 241 140 - 440 10*3/uL Final MCV Date Value Ref Range Status 01/17/2024 88.9 77.0 - 99.0 fL Final SODIUM Date Value Ref Range Status 01/17/2024 136 135 - 145 mmol/L Final POTASSIUM Date Value Ref Range Status 01/17/2024 4.2 3.5 - 5.1 mmol/L Final CHLORIDE Date Value Ref Range Status 01/17/2024 101 98 - 107 mmol/L Final CARBON DIOXIDE Date Value Ref Range Status 01/17/2024 21 (L) 22 - 30 mmol/L Final UREA NITROGEN Date Value Ref Range Status 01/17/2024 70 (H) 9 - 20 mg/dL Final CREATININE Date Value Ref Range Status 01/17/2024 11.51 (H) 0.66 - 1.25 mg/dL Final GLUCOSE Date Value Ref Range Status 01/17/2024 87 70 - 100 mg/dL Final CALCIUM Date Value Ref Range Status 01/17/2024 11.7 (H) 8.4 - 10.4 mg/dL Final No results found for: AST, ALT, PROT, BILITOT, ALKPHOS, INR, APTT, LIPASE TROPONIN I Date Value Ref Range Status 01/17/2024 0.023 <0.034 ng/mL Final No results found for: PROCAL, CHOL, TRIG, HDL, TSH, VITD25, HGBA1C, VANCOTROUGH Assessment and Plan: Principal Problem: Junctional bradycardia Junctional bradycardia Presyncope - Episode of symptomatic junctional bradycardia today with rates in 30s - No known cardiac history - Seen by postdoctoral fellow who cleared patient for telemetry admission - Etiology: consider medication-induced (on CCB) vs electrolyte abnormality (hypercalcemia) vs infectious cause vs low suspicion for ischemic cause vs SSS Plan: - Admit to telemetry - Hold CCB - Check TSH - Give small fluid bolus in attempt to decrease calcium - Check TTE - EP consult Agree. Hypercalcemia - Calcium 11.7 - Unclear if new and/or contributed to junctional bradycardia Plan: - Recheck CMP and ionized calcium - Check PTH - Hold calcitriol - Hold calcium-based phosphate binder (Renvela) - Small fluid bolus in attempt to decrease calcium - Nephrology consult for PD. Will reach out to on-call car attendant regarding potential need for PDtonight in setting of hypercalcemia/arrhythmia Agree. ESRD on PD HAGMA likely 2/2 uremia - Follows with Dr. Rylee Coronel from [place] for nephrology - Per patient's car attendant for PD instructions: Does five exhanges of 2000 ML in 8.5 hours. It is one hour and 16 minutes dwell time. 2.5 calcium and 0.5 magnesium solution. [facility] system. Plan: - Nephrology consult for PD. Will reach out to on-call car attendant regarding potential need for PDtonight in setting of hypercalcemia/arrhythmia Agree. T2DM - Unknown A1C Plan: - Check A1C - Resume home glargine 30 units daily - LDISS with meals - Hypoglycemia protocol Agree. Normocytic anemia - Likely anemia of chronic disease +/- iron deficiency - No concern for acute bleeding Plan: - Continue home ferrous sulfate - Monitor via every other day CBC - Goals of Care: FULL CODE - DVT Prophylaxis: Heparin - GI Prophylaxis: Not Indicated - Diet: General, Carb-Control, and Renal - BMI Classification: There is no height or weight on file to calculate BMI. Normal (BMI 18.5-24.9) - Disposition: Admit to Telemetry. - Given the signs and symptoms associated with his primary diagnosis in the setting of his comorbidconditions, he is expected to require >48 hrs of hospital care (i.e. inpatient level care). Attending Supervising Physician's Attestation Statement for Admission I performed a history and physical examination on the patient and discussed the management with theresident physician. I reviewed and agree with the findings and plan as documented in their note except as amended in green font. Addendums may have been dictated using the [email or web address] Voice Recognition Feature. The document was proofread; however, unrecognized voice recognition field crop i farmworker errors may be present. Please note, the time of this note does not reflect the time I saw this patient today, but the time of this documentaton. Discussed with: [x]Residents [x]Patient [x]Family- family at bedside [x]RN []Consultants []SW/TCC [] PT/OT []Pharmacist []Other Reviewed: [x]Epic notes []Radiology studies [x]Labs [x]EKG []Other Initial Inpatient: Spent total time 75 minutes counseling or coordinating care, chart historical review, and discussion regarding presenting sxs with assistance of bilingual medical information specialist assignedto pt ([place] is first language). Tx plan reviewed with pt and family as well as med team. 7AM-5PM: contact resident on [facility] Med Team (found by hovering over attending's name on left side of patient's chart) 5PM-7AM: contact AI3 resident documented in this [facility]08-30-2024 NoteCCU Plan of Care Asked for evaluation of bradycardia for Noé Hughes, a 73-year-old [place]-speaking male with ESRD on IHD who presented to [facility] with a suspected syncopal episode. On presentation there, he was hypotensive and bradycardic with ECG showing a junctional rhythm with HR 30s (confirmed on actual EKG is in patient's chart). He was given atropine and other unclear treatment and transferred to [facility] for further care. On evaluation he reports no symptoms. EKG on arrival to [facility] shows sinus rhythm. Labs pending. Okay to admit to telemetry floors with EP consult. No CCU needs at this time. TTE ordered. Freddie Erwin MD Fellow, Cardiovascular Disease, [id number] Emergency department Note* Gil Mcclellan PA-C - 01/17/2024 5:57 PM EDT Emergency Department Encounter [facility] EMERGENCY DEPT Patient: Noé Hughes : 1950 Date of Evaluation: 01/17/2024 ED ANTONY Provider: Gil Mcclellan PA-C EDcare was supervised by Dr. Frazier who independently examined and evaluated the patient. Please see their attestation note for further details. Chief Complaint Chief Complaint Patient presents with Bradycardia Pt presents from ED via EMS from [facility] for a junctional bradycardia in the low 30s. Pt was at [facility] when he got SOB and dizzy. He went to the pharmacy to have his blood pressure taken. Per pt daughter, BP was low. Pt brought to ER in [place]. Pt was hypotensive. Given 0.5 atropine. Per EMS pt HR went into the 50-60s. Pt is A&Ox4. GCS 15. Denies CP/SOB. [place] I was wearing a N95, Surgical mask for the entirety of this encounter. Noé Hughes is a 73 y.o. male who presents to the emergency department for bradycardia.Patient was transferred here from outside hospital. Patient is here with family. Patient reportedlywas getting dizzy and short of breath today. Patient was found to be bradycardic. Patient was givenatropine in outside hospital. Patient is feeling better at this time. Patient does not have a pacemaker. No significant cardiac history. Denies chest pain. Limitations to history: None Outside historians: EMR and family Past History No past medical history on file. No past surgical history on file. Social History Socioeconomic History Marital status: Medications/Allergies Previous Medications ATORVASTATIN (LIPITOR) 20 MG TABLET Take 20 mg by mouth daily. B COMPLEX-VITAMIN C-FOLIC ACID (NEPHRO-JORDON RX) 1 MG TABLET Take 1 tablet by mouth daily (with breakfast). CALCITRIOL (ROCALTROL) 0.5 MCG CAPSULE Take 0.5 mcg by mouth daily. DOCUSATE SODIUM (COLACE) 100 MG CAPSULE Take 100 mg by mouth 2 times daily. FELODIPINE ER (PLENDIL) 10 MG 24 HR TABLET Take 10 mg by mouth daily. Do not crush, chew, or split. FERROUS SULFATE (FEROSUL) 325 (65 FE) MG TABLET Take 325 mg by mouth in the morning and 325 mg in the evening. INSULIN GLARGINE (LANTUS) 100 UNIT/ML INJECTION Inject 30 Units under the skin every morning. LACTULOSE (CHRONULAC) 10 GM/15ML SOLUTION Take 20 g by mouth 2 times daily. PANTOPRAZOLE (PROTONIX) 20 MG EC TABLET Take 40 mg by mouth every morning (before breakfast). Do not crush, chew, or split. SEVELAMER (RENAGEL) 800 MG TABLET Take 800 mg by mouth in the morning and 800 mg at noon and 800 mgin the evening. Take with meals. Swallow tablet whole; do not crush, break, or chew.. No Known Allergies Physical Exam BP (!) 160/63 (BP Location: Left arm, Patient Position: Lying) Pulse 54 Resp 19 SpO2 98% Physical Exam GENERAL APPEARANCE: Awake and alert. Cooperative. HEENT: Normocephalic. Atraumatic. No trismus. NECK: Supple. Trachea midline. CARDIO: Normal rate. Radial pulses symmetrical and palpable LUNGS: Respirations unlabored. CTAB. ABDOMEN: Soft. Non-distended. Non-tender throughout. MUSCULOSKELETAL: No acute deformities. SKIN: Warm and dry. NEUROLOGICAL: No gross facial drooping. No obvious neurologic deficits. Moves all 4 extremities spontaneously. SCREENINGS D Labs: Results for orders placed or performed during the hospital encounter of 01/17/24 Basic metabolic panel Result Value Ref Range SODIUM 136 135 - 145 mmol/L POTASSIUM 4.2 3.5 - 5.1 mmol/L CHLORIDE 101 98 - 107 mmol/L CARBON DIOXIDE 21 (L) 22 - 30 mmol/L UREA NITROGEN 70 (H) 9 - 20 mg/dL CREATININE 11.51 (H) 0.66 - 1.25 mg/dL GLUCOSE 87 70 - 100 mg/dL CALCIUM 11.7 (H) 8.4 - 10.4 mg/dL ANION GAP 14 (H) 3 - 13 mmol/L eGFR 4.3 (L) >60.0 mL/min/1.73m*2 CBC auto differential Result Value Ref Range Auto WBC 9.6 3.6 - 10.7 10*3/uL RBC 3.96 (L) 4.40 - 5.90 10*6/uL Hemoglobin 12.0 (L) 13.0 - 18.0 g/dL Hematocrit 35.2 (L) 40.0 - 52.0 % MCV 88.9 77.0 - 99.0 fL MCH 30.3 26.0 - 34.0 pg MCHC 34.1 30.5 - 36.0 % RDW 11.6 11.5 - 15.0 % Platelets 241 140 - 440 10*3/uL MPV 9.9 9.0 - 12.7 fL nRBC 0.0 0.0 - 2.0 /100 WBCs Neutrophils Relative 68.9 38.0 - 82.0 % Lymphocytes Relative 21.9 15.0 - 45.0 % Monocytes Relative 6.5 5.0 - 13.0 % Eosinophils Relative 1.6 0.0 - 6.0 % Basophils Relative 0.6 0.0 - 2.0 % Immature Grans % 0.5 0.0 - 2.0 % Neutrophils Absolute 6.6 1.8 - 7.5 10*3/uL Lymphocytes Absolute 2.1 1.0 - 4.3 10*3/uL Monocytes Absolute 0.6 0.0 - 0.9 10*3/uL Eosinophils Absolute 0.2 0.0 - 0.5 10*3/uL Basophils Absolute 0.1 0.0 - 0.2 10*3/uL Immature Grans Absolute 0.1 (H) <0.1 10*3/uL Troponin, with Serial Reflex Result Value Ref Range TROPONIN I 0.023 <0.034 ng/mL ECG 12 lead Result Value Ref Range Heart Rate 60 bpm QRSD Interval 108 ms QT Interval 387 ms QTC Interval 386 ms P Manson 64 degrees QRS Manson -29 degrees T Wave Manson 7 degrees SC Interval 166 ms Radiographs: No orders to display : EKG: All EKG's areinterpreted by the Emergency Department Physician in the absence of a marketing administrative assistant. see their note for interpretation of EKG. EMERGENCY DEPARTMENT COURSE and DIFFERENTIAL DIAGNOSIS/MDM: External Records Review: Reviewed Care Everywhere. Social Determinants of Health: none. Noé Hughes is a 73 y.o. male who presented to the emergency department for bradycardia. Patient transferred here from outside hospital. Patient was getting dizzy and short of breath today. Patient was taken to ER where he was found to be bradycardic. Patient was given atropine and is feeling better. Differential diagnosis included arrhythmia, ACS, PE, hypotension. Will review outsidelabs from other facility. Will get repeat EKG. Patient presented with bradycardia. EKG from outside facility does look like junctional bradycardia. Consulted CCU. CCU recommended medical admission on telemetry for EP consult. Patient admitted to medicine team. Final Diagnosis: 1. Junctional bradycardia 2. Bradycardia Medications atorvastatin (Lipitor) tablet 20 mg (has no administration in time range) B complex-vitamin C-folic acid (Nephrocaps) capsule 1 capsule (has no administration in time range) calcitriol (Rocaltrol) capsule 0.5 mcg ( Oral Dose Auto Held 01/22/24 0900) ferrous sulfate tablet 325 mg (has no administration in time range) insulin glargine (Lantus) injection 30 Units (has no administration in time range) pantoprazole (ProtoNix) EC tablet 40 mg (has no administration in time range) sevelamer carbonate (Renvela) tablet 800 mg ( Oral Dose Auto Held 01/22/24 1700) acetaminophen (Tylenol) tablet 650 mg (has no administration in time range) Or acetaminophen (Tylenol) suppository 650 mg (has no administration in time range) ondansetron ODT (Zofran-ODT) disintegrating tablet 4 mg (has no administration in time range) Or ondansetron (Zofran) injection 4 mg (has no administration in time range) polyethylene glycol (PEG) 3350 (Miralax) packet 17 g (has no administration in time range) heparin injection 5,000 Units (has no administration in time range) glucose oral gel 15 g (has no administration in time range) dextrose 50 % solution 12.5 g (has no administration in time range) glucagon (human recombinant) injection 1 mg (has no administration in time range) dextrose 5 % infusion (has no administration in time range) docusate sodium (Colace) capsule 100 mg (has no administration in time range) lactulose (Chronulac) 10 GM/15ML solution 20 g (has no administration in time range) Insulin Lispro (Humalog) injection 0-6 Units (has no administration in time range) sodium chloride 0.9 % bolus 500 mL (has no administration in time range) CONSULTS: IP CONSULT TO CARDIOLOGY IP CONSULT TO NEPHROLOGY PROCEDURES: Unless otherwise noted below, none Procedures DISPOSITION/PLAN Admit 01/17/2024 10:48:34 PM PATIENT REFERRED TO: No follow-up provider specified. DISCHARGE MEDICATIONS: New Prescriptions No medications on file @[facility]([id number]:LAST:1)@ (Please note: Portions of this note were completed with a voice recognition program. Efforts were made to edit the dictations but occasionally words and phrases are mis-transcribed.) Form [id number] Gil Mcclellan PA-C [facility] Gil Mcclellan PA-C 01/17/24 2346 * Dixon Frazier MD - 01/17/2024 5:57 PM EDT Emergency Department Encounter [facility] Patient: Noé Hughes : 1950 Date of Evaluation: 01/17/2024 ED Supervising Physician: Dixon Frazier MD HPI: I independently examined and evaluated Noé Hughes. In brief, Noé Hughes is a 73 y.o. male that presents to the emergency department for evaluation of abnormal EKG. Patient seen at OSH after near-syncope. Found to have bradycardia to 30s.Given atropine and transferred for cardiology evaluation. Patient now in NSR in 60s. Normotensive. Focused exam: Awake, alert, no acute distress. Breathing comfortably on room air. Breath sounds clear to auscultation. Regular rate and rhythm. Abdomen soft, non- distended, non-tender. Moves all extremities equally. Distal pulses intact and equal bilaterally. EMERGENCY DEPARTMENT COURSE and DIFFERENTIAL DIAGNOSIS/MDM: Vitals: Vitals: 01/17/242015 BP: 111/71 BP Location: Left arm Pulse: 60 Resp: 16 SpO2: 99% Brief Course: The patient presented with a chief complaint of bradycardia. Concern for complete heart block, but on my review of EKG suspect junctional escape. No major electrolyte abnormalities in setting of ESRD. Patient will be admitted. Discussed with caridiology. Will place on tele and have EPconsulted for tomorrow. Patient agreeable. See antony note for details. Disposition: The patient will be admitted Critical Care Statement: Total critical care time today provided was at least 0 minutes. All diagnostic, treatment, and disposition decisions were made by myself in conjunction with the resident and/or ANTONY. For all further details of the patient's emergency department visit, please see their documentation. (Please note that portions of this note may have been completed with a voice recognition program. Efforts were made to edit the dictations but occasionally words are mis-transcribed.) Dixon Frazier MD [facility] Dixon Frazier MD 01/18/24 0011 documented in this [facility]08-30-2024 Physician Emergency department Note* Gil Mcclellan PA-C - 01/17/2024 5:57 PM EDT Emergency Department Encounter [facility] Patient: Noé Hughes : 1950 Date of Evaluation: 01/17/2024 ED ANTONY Provider: Gil Mcclellan PA-C EDcare was supervised by Dr. Frazier who independently examined and evaluated the patient. Please see their attestation note for further details. Chief Complaint Chief Complaint Patient presents with Bradycardia Pt presents from ED via EMS from [facility] for a junctional bradycardia in the low 30s. Pt was at [facility] when he got SOB and dizzy. He went to the pharmacy to have his blood pressure taken. Per pt daughter, BP was low. Pt brought to ER in [place]. Pt was hypotensive. Given 0.5 atropine. Per EMS pt HR went into the 50-60s. Pt is A&Ox4. GCS 15. Denies CP/SOB. [place] I was wearing a N95, Surgical mask for the entirety of this encounter. Noé Hughes is a 73 y.o. male who presents to the emergency department for bradycardia.Patient was transferred here from outside hospital. Patient is here with family. Patient reportedlywas getting dizzy and short of breath today. Patient was found to be bradycardic. Patient was givenatropine in outside hospital. Patient is feeling better at this time. Patient does not have a pacemaker. No significant cardiac history. Denies chest pain. Limitations to history: None Outside historians: EMR and family Past History No past medical history on file. No past surgical history on file. Social History Socioeconomic History Marital status: Medications/Allergies Previous Medications ATORVASTATIN (LIPITOR) 20 MG TABLET Take 20 mg by mouth daily. B COMPLEX-VITAMIN C-FOLIC ACID (NEPHRO-JORDON RX) 1 MG TABLET Take 1 tablet by mouth daily (with breakfast). CALCITRIOL (ROCALTROL) 0.5 MCG CAPSULE Take 0.5 mcg by mouth daily. DOCUSATE SODIUM (COLACE) 100 MG CAPSULE Take 100 mg by mouth 2 times daily. FELODIPINE ER (PLENDIL) 10 MG 24 HR TABLET Take 10 mg by mouth daily. Do not crush, chew, or split. FERROUS SULFATE (FEROSUL) 325 (65 FE) MG TABLET Take 325 mg by mouth in the morning and 325 mg in the evening. INSULIN GLARGINE (LANTUS) 100 UNIT/ML INJECTION Inject 30 Units under the skin every morning. LACTULOSE (CHRONULAC) 10 GM/15ML SOLUTION Take 20 g by mouth 2 times daily. PANTOPRAZOLE (PROTONIX) 20 MG EC TABLET Take 40 mg by mouth every morning (before breakfast). Do not crush, chew, or split. SEVELAMER (RENAGEL) 800 MG TABLET Take 800 mg by mouth in the morning and 800 mg at noon and 800 mgin the evening. Take with meals. Swallow tablet whole; do not crush, break, or chew.. No Known Allergies Physical Exam BP (!) 160/63 (BP Location: Left arm, Patient Position: Lying) Pulse 54 Resp 19 SpO2 98% Physical Exam GENERAL APPEARANCE: Awake and alert. Cooperative. HEENT: Normocephalic. Atraumatic. No trismus. NECK: Supple. Trachea midline. CARDIO: Normal rate. Radial pulses symmetrical and palpable LUNGS: Respirations unlabored. CTAB. ABDOMEN: Soft. Non-distended. Non-tender throughout. MUSCULOSKELETAL: No acute deformities. SKIN: Warm and dry. NEUROLOGICAL: No gross facial drooping. No obvious neurologic deficits. Moves all 4 extremities spontaneously. SCREENINGS D Labs: Results for orders placed or performed during the hospital encounter of 01/17/24 Basic metabolic panel Result Value Ref Range SODIUM 136 135 - 145 mmol/L POTASSIUM 4.2 3.5 - 5.1 mmol/L CHLORIDE 101 98 - 107 mmol/L CARBON DIOXIDE 21 (L) 22 - 30 mmol/L UREA NITROGEN 70 (H) 9 - 20 mg/dL CREATININE 11.51 (H) 0.66 - 1.25 mg/dL GLUCOSE 87 70 - 100 mg/dL CALCIUM 11.7 (H) 8.4 - 10.4 mg/dL ANION GAP 14 (H) 3 - 13 mmol/L eGFR 4.3 (L) >60.0 mL/min/1.73m*2 CBC auto differential Result Value Ref Range Auto WBC 9.6 3.6 - 10.7 10*3/uL RBC 3.96 (L) 4.40 - 5.90 10*6/uL Hemoglobin 12.0 (L) 13.0 - 18.0 g/dL Hematocrit 35.2 (L) 40.0 - 52.0 % MCV 88.9 77.0 - 99.0 fL MCH 30.3 26.0 - 34.0 pg MCHC 34.1 30.5 - 36.0 % RDW 11.6 11.5 - 15.0 % Platelets 241 140 - 440 10*3/uL MPV 9.9 9.0 - 12.7 fL nRBC 0.0 0.0 - 2.0 /100 WBCs Neutrophils Relative 68.9 38.0 - 82.0 % Lymphocytes Relative 21.9 15.0 - 45.0 % Monocytes Relative 6.5 5.0 - 13.0 % Eosinophils Relative 1.6 0.0 - 6.0 % Basophils Relative 0.6 0.0 - 2.0 % Immature Grans % 0.5 0.0 - 2.0 % Neutrophils Absolute 6.6 1.8 - 7.5 10*3/uL Lymphocytes Absolute 2.1 1.0 - 4.3 10*3/uL Monocytes Absolute 0.6 0.0 - 0.9 10*3/uL Eosinophils Absolute 0.2 0.0 - 0.5 10*3/uL Basophils Absolute 0.1 0.0 - 0.2 10*3/uL Immature Grans Absolute 0.1 (H) <0.1 10*3/uL Troponin, with Serial Reflex Result Value Ref Range TROPONIN I 0.023 <0.034 ng/mL ECG 12 lead Result Value Ref Range Heart Rate 60 bpm QRSD Interval 108 ms QT Interval 387 ms QTC Interval 386 ms P Manson 64 degrees QRS Manson -29 degrees T Wave Manson 7 degrees SC Interval 166 ms Radiographs: No orders to display : EKG: All EKG's areinterpreted by the Emergency Department Physician in the absence of a marketing administrative assistant. see their note for interpretation of EKG. EMERGENCY DEPARTMENT COURSE and DIFFERENTIAL DIAGNOSIS/MDM: External Records Review: Reviewed Care Everywhere. Social Determinants of Health: none. Noé Hughes is a 73 y.o. male who presented to the emergency department for bradycardia. Patient transferred here from outside hospital. Patient was getting dizzy and short of breath today. Patient was taken to ER where he was found to be bradycardic. Patient was given atropine and is feeling better. Differential diagnosis included arrhythmia, ACS, PE, hypotension. Will review outsidelabs from other facility. Will get repeat EKG. Patient presented with bradycardia. EKG from outside facility does look like junctional bradycardia. Consulted CCU. CCU recommended medical admission on telemetry for EP consult. Patient admitted to medicine team. Final Diagnosis: 1. Junctional bradycardia 2. Bradycardia Medications atorvastatin (Lipitor) tablet 20 mg (has no administration in time range) B complex-vitamin C-folic acid (Nephrocaps) capsule 1 capsule (has no administration in time range) calcitriol (Rocaltrol) capsule 0.5 mcg ( Oral Dose Auto Held 01/22/24 0900) ferrous sulfate tablet 325 mg (has no administration in time range) insulin glargine (Lantus) injection 30 Units (has no administration in time range) pantoprazole (ProtoNix) EC tablet 40 mg (has no administration in time range) sevelamer carbonate (Renvela) tablet 800 mg ( Oral Dose Auto Held 01/22/24 1700) acetaminophen (Tylenol) tablet 650 mg (has no administration in time range) Or acetaminophen (Tylenol) suppository 650 mg (has no administration in time range) ondansetron ODT (Zofran-ODT) disintegrating tablet 4 mg (has no administration in time range) Or ondansetron (Zofran) injection 4 mg (has no administration in time range) polyethylene glycol (PEG) 3350 (Miralax) packet 17 g (has no administration in time range) heparin injection 5,000 Units (has no administration in time range) glucose oral gel 15 g (has no administration in time range) dextrose 50 % solution 12.5 g (has no administration in time range) glucagon (human recombinant) injection 1 mg (has no administration in time range) dextrose 5 % infusion (has no administration in time range) docusate sodium (Colace) capsule 100 mg (has no administration in time range) lactulose (Chronulac) 10 GM/15ML solution 20 g (has no administration in time range) Insulin Lispro (Humalog) injection 0-6 Units (has no administration in time range) sodium chloride 0.9 % bolus 500 mL (has no administration in time range) CONSULTS: IP CONSULT TO CARDIOLOGY IP CONSULT TO NEPHROLOGY PROCEDURES: Unless otherwise noted below, none Procedures DISPOSITION/PLAN Admit 01/17/2024 10:48:34 PM PATIENT REFERRED TO: No follow-up provider specified. DISCHARGE MEDICATIONS: New Prescriptions No medications on file @[facility]([id number]:LAST:1)@ (Please note: Portions of this note were completed with a voice recognition program. Efforts were made to edit the dictations but occasionally words and phrases are mis-transcribed.) Form [id number] Gil Mcclellan PA-C [facility] Gil Mcclellan PA-C 01/17/24 2346 [employer] Phone: [phone] 436-436808-30-2024 Physician Emergency department Note* Dixon Frazier MD - 01/17/2024 5:57 PM EDT Emergency Department Encounter [facility] Patient: Noé Hughes : 1950 Date of Evaluation: 01/17/2024 ED Supervising Physician: Dixon Frazier MD HPI: I independently examined and evaluated Noé Hughes. In brief, Noé Hughes is a 73 y.o. male that presents to the emergency department for evaluation of abnormal EKG. Patient seen at OSH after near-syncope. Found to have bradycardia to 30s.Given atropine and transferred for cardiology evaluation. Patient now in NSR in 60s. Normotensive. Focused exam: Awake, alert, no acute distress. Breathing comfortably on room air. Breath sounds clear to auscultation. Regular rate and rhythm. Abdomen soft, non- distended, non-tender. Moves all extremities equally. Distal pulses intact and equal bilaterally. EMERGENCY DEPARTMENT COURSE and DIFFERENTIAL DIAGNOSIS/MDM: Vitals: Vitals: 01/17/242015 BP: 111/71 BP Location: Left arm Pulse: 60 Resp: 16 SpO2: 99% Brief Course: The patient presented with a chief complaint of bradycardia. Concern for complete heart block, but on my review of EKG suspect junctional escape. No major electrolyte abnormalities in setting of ESRD. Patient will be admitted. Discussed with caridiology. Will place on tele and have EPconsulted for tomorrow. Patient agreeable. See antony note for details. Disposition: The patient will be admitted Critical Care Statement: Total critical care time today provided was at least 0 minutes. All diagnostic, treatment, and disposition decisions were made by myself in conjunction with the resident and/or ANTONY. For all further details of the patient's emergency department visit, please see their documentation. (Please note that portions of this note may have been completed with a voice recognition program. Efforts were made to edit the dictations but occasionally words are mis-transcribed.) iDxon Frazier MD [employer] Dixon Frazier MD 01/18/24 0011 [facility] Work Phone: Evaluation noteNo assessment information available [facility] Work Phone: Evaluation note* Diagnosis Junctional bradycardia- Primary Other specified cardiac dysrhythmias Bradycardia Other specified cardiac dysrhythmias Junctional bradycardia Other specified cardiac dysrhythmias Junctional bradycardia Other specified cardiac dysrhythmias documented in this encounter [facility] note* Diagnosis Injury of left ankle, initial encounter- Primary Foot injury, left, initial encounter Closed fracture of distal end of left fibula, unspecified fracture morphology, initial encounter Injury of left ankle, initial encounter Foot injury, left, initial encounter [facility] Diagnosis Injury of left ankle, initial encounter Foot injury, left, initial encounter [facility]* Diagnosis Closed fracture of distal end of left fibula, unspecified fracture morphology, initial encounter [facility]* Diagnosis Closed fracture of distal end of left fibula, unspecified fracture morphology, initial encounter- Primary documented in this encounter [facility] note* Diagnosis Closed fracture of distal end of left fibula, unspecified fracture morphology, initial encounter [facility]* Diagnosis Closed fracture of distal end of left fibula, unspecified fracture morphology, initial encounter- Primary [facility]* Diagnosis Trimalleolar fracture of ankle, closed, left, initial encounter- Primary Acute left ankle pain 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, not stated as uncontrolled CKD (chronic kidney disease) stage V requiring chronic dialysis (HCC) End stage renal disease [facility]* Diagnosis Closed trimalleolar fracture of left ankle, initial encounter- Primary [facility]* Diagnosis Post-operative state- Primary Other postprocedural status Trimalleolar fracture of ankle, closed, left, initial encounter 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, not stated as uncontrolled CKD (chronic kidney disease) stage V requiring chronic dialysis (HCC) End stage renal disease [facility]* Diagnosis Post-operative state- Primary Other postprocedural status Trimalleolar fracture of ankle, closed, left, initial encounter 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, not stated as uncontrolled [facility]* Diagnosis Post-operative state- Primary Other postprocedural status Trimalleolar fracture of ankle, closed, left, initial encounter 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, not stated as uncontrolled CKD (chronic kidney disease) stage V requiring chronic dialysis (HCC) End stage renal disease [facility]* Diagnosis Post-operative state- Primary Other postprocedural status Trimalleolar fracture of ankle, closed, left, initial encounter 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, not stated as uncontrolled [facility] Diagnosis Post-operative state- Primary Other postprocedural status Trimalleolar fracture of ankle, closed, left, initial encounter 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, not stated as uncontrolled CKD (chronic kidney disease) stage V requiring chronic dialysis (HCC) End stage renal disease [facility]* Diagnosis Post-operative state- Primary Other postprocedural status Trimalleolar fracture of ankle, closed, left, initial encounter 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, not stated as uncontrolled Localized edema Edema [facility] Author Rylee Lee [facility] Note Date/Time September 23, 2024 10:05a [facility] Medical Records Department [address] [place] [address] Progress Note 09/23/24 1003 MR#: [id number] Acct: [id number] Name: NOÉ PINO Rep #:[id number] : 1950 73 From: Rylee Mendez PCP: Dr. Allen Jackson MD Status:ADM I NO Location: [place] [address] Progress Note chart reviewed. Discussed with pt son and son's sig other at bedside and with cardiology. Follow up in dialysis clinic on September 30. Pt doing well. Dialysis to be done at home since PD services not available in the hospital. 09/23/24 1005 <Electronically signed by Rylee Coronel DO> Rylee French Signature (if applicable): CC: ~ Signed [facility] Work Phone: Reason for referral (narrative)No reason for referral information availableWOhioHealth [facility] Work Phone: Reason for visit Narrative* Diagnostic Procedure Only (Urgent) - Closed Specialty Diagnoses / Procedures Referred By Chandrakantac t Referred To Contact XR IMAGING Diagnoses Foot injury, left, initial encounter Procedures XR FOOT GENERAL 3V AP/LAT/OBL LEFT RADEX FOOT COMPLETE MINIMUM 3 VIEWS Mere Brunner, GIFT CONSULTANT.[employer] [address] [place] [address] Phone: tel: fax: [place] [address] Referral ID Status Reason Start Date Expiration Date V isits Requested Visits Authorized [id number] Closed Auto-Generate d Referral 07/27/2024 08/26/2025 1 1 [facility] [facility] Narrative* Diagnostic Procedure Only (Routine) - Closed Specialty Diagnoses / Procedures Referred By Contac t Referred To Contact XR IMAGING Diagnoses Closed fracture of distal end of left fibula, unspecified fracture morphology, initial encounter Procedures XR ANKLE GENERAL 3V AP/LAT/OBL LEFT RADEX ANKLE COMPLETE MINIMUM 3 VIEWS Keanu Zarate V, DO [address] [place] [address] Phone: tel: fax: [place] [phone] Referral ID Status Reason Start Date Expiration Date V isits Requested Visits Authorized [id number] Closed Auto-Generate d Referral 08/05/2024 09/04/2025 1 1 [facility] Advance Directives No Advanced Directives Records Found Date Activated Date Inactivated Comments 01/17/2024 10:58 PM 01/20/2024 4:36 PM Advance Directive Response Recorded Date/ Time Living Will No September 22, 2024 9: 47am Do you have a Healthcare Power of Review Consultant? No September 22, 2024 10:28pm Advance Directives No September 22, 2024 9:47am Summary Purpose Family History No Family History Records Found Relationship Condition Age at Onset Recorded Date/T cindy brother Diabetes mellitus Unknown father Diabetes mellitus Unknown Chief Complaint and Reason for Visit Chief Complaint Admit Date CHF/NEEDS [facility] ([facility])/Sees Leti @ 9:30 Apr il 2024 8:56am INT LAB AND RAD September 17, 2024 6:49am ABNORMAL STRESS TEST September 22, 2024 1:33p m ABNORMAL STRESS TEST September 23, 2024 7:35a m Reason for Visit Admit Date Abnormal cardiovascular stress test Apri l 2024 8:56am Diabetes mellitus September 16, 2024 8:5 6am Dyslipidemia September 16, 2024 8:5 6am End stage renal disease on dialysis Apri l 2024 8:56am Hypertension September 16, 2024 8:5 6am Presence of cardiac pacemaker August 8:56am Sick sinus syndrome September 16, 2024 8:5 6am CAD (coronary artery disease) September 22 025 1:33pm End stage renal disease on dialysis September 22, 2024 1:33pm Presence of cardiac pacemaker September 22, 025 1:33pm Chief Complaint Admit Date CHF/NEEDS [facility] ([facility])/Sees Leti @ 9:30 Apr il 2024 8:56am INT LAB AND RAD September 17, 2024 6:49am ABNORMAL STRESS TEST September 22, 2024 1:33p m EKG September 22, 2024 2:39pm ABNORMAL STRESS TEST September 23, 2024 7:35a m Pacer Check Remote September 23, 2024 9:00am Pacer Check Remote September 25, 2024 3:40am Chief Complaint Admit Date CHF/NEEDS [facility] ([facility])/Sees Leti @ 9:30 Apr 2024 8:56am INT LAB AND RAD September 17, 2024 6:49am ABNORMAL STRESS TEST September 22, 2024 1:33p m EKG September 22, 2024 2:39pm ABNORMAL STRESS TEST September 23, 2024 7:35a m Pacer Check Remote September 23, 2024 9:00am Pacer Check Remote September 25, 2024 3:40am S/P [facility] [id number] October 05, 2024 3:54p m Reason for Visit Admit Date Abnormal cardiovascular stress test Apr l 2024 8:56am Diabetes mellitus September 16, 2024 8:5 6am Dyslipidemia September 16, 2024 8:5 6am End stage renal disease on dialysis Apri l 2024 8:56am Hypertension September 16, 2024 8:5 6am Presence of cardiac pacemaker August 8:56am Sick sinus syndrome September 16, 2024 8:5 6am CAD (coronary artery disease) September 22, 025 1:33pm End stage renal disease on dialysis September 22, 2024 1:33pm Presence of cardiac pacemaker May 6th, 2 025 1:33pm Diabetes mellitus October 05, 2024 3:54p m Dyslipidemia October 05, 2024 3:54p m End stage renal disease on dialysis October 05, 2024 3:54pm Hypertension October 05, 2024 3:54p m Presence of cardiac pacemaker October 05, 2024 3:54pm Sick sinus syndrome October 05, 2024 3:54p m Stented coronary artery October 05, 2024 3 :54pm Chief Complaint Admit Date CHF/NEEDS [facility] ([facility])/Sees Leti @ 9:30 Apr 2024 8:56am INT LAB AND RAD September 17, 2024 6:49am ABNORMAL STRESS TEST September 22, 2024 1:33p m EKG September 22, 2024 2:39pm ABNORMAL STRESS TEST September 23, 2024 7:35a m Pacer Check Remote September 23, 2024 9:00am Pacer Check Remote September 25, 2024 3:40am S/P [facility] [id number] October 05, 2024 3:54p m 3 M FU December 30, 2024 9: 44am Reason for Visit Admit Date Abnormal cardiovascular stress test Apri l 2024 8:56am Diabetes mellitus September 16, 2024 8:5 6am Dyslipidemia September 16, 2024 8:5 6am End stage renal disease on dialysis Apri 2024 8:56am Hypertension September 16, 2024 8:5 6am Presence of cardiac pacemaker August 8:56am Sick sinus syndrome September 16, 2024 8:5 6am CAD (coronary artery disease) September 22, 2 025 1:33pm End stage renal disease on dialysis September 22, 2024 1:33pm Presence of cardiac pacemaker September 22, 2 025 1:33pm Diabetes mellitus October 05, 2024 3:54p m Dyslipidemia October 05, 2024 3:54p m End stage renal disease on dialysis October 05, 2024 3:54pm Hypertension October 05, 2024 3:54p m Presence of cardiac pacemaker October 05, 2024 3:54pm Sick sinus syndrome October 05, 2024 3:54p m Stented coronary artery October 05, 2024 3 :54pm Diabetes mellitus December 30, 2024 9: 44am Dyslipidemia December 30, 2024 9: 44am End stage renal disease on dialysis Augu st 2024 9:44am Hypertension December 30, 2024 9: 44am Presence of cardiac pacemaker December 9:44am Sick sinus syndrome December 30, 2024 9: 44am Stented coronary artery December 30 9:44am Chief Complaint Admit Date CHF/NEEDS [facility] ([facility])/Sees Leti @ 9:30 Apr 2024 8:56am INT LAB AND RAD September 17, 2024 6:49am ABNORMAL STRESS TEST September 22, 2024 1:33p m EKG September 22, 2024 2:39pm ABNORMAL STRESS TEST September 23, 2024 7:35a m Pacer Check Remote September 23, 2024 9:00am Pacer Check Remote September 25, 2024 3:40am S/P [facility] 0507 October 05, 2024 3:54p m Pacer Check Remote December 25, 2024 5:2 3am 3 M FU December 30, 2024 9: 44am Additional Source Comments Care Teams (unrecognized sec tion and content) Team Status: Inactive Member Role Status Dates Dr. Allen Jackson MD Attending Provider Active Team Status: Active Member Role Status Dates Dr. Allen Jackson MD Primary Care Provider Active Team Status: Inactive Member Role Status Dates Dr. Allen Jackson MD Primary Care Provider, Attending Provider Active Director Of Catering Relationship Specialty Start Date End Date Prudencio Jackson MD [address] [place] [address] PCP - General Geriatric Medicine 01/17/24 Director Of Catering Relationship Specialty Start Date End Date Prudencio Jackson MD [address] [place], [place] [id number] PCP - General Geriatric Medicine 01/17/24 Director Of Catering Relationship Specialty Start Date End Date Allen Jackson Chi [address] [place], [place] [id number] PCP - General Gerontology 07/27/24 Director Of Catering Relationship Specialty Start Date End Date Allen Jackson Chi [address] [place] [address] PCP - General Gerontology 07/27/24 Director Of Catering Relationship Specialty Start Date End Date Allen Jackson Chi [address] [place] [address] PCP - General Gerontology 07/27/24 Director Of Catering Relationship Specialty Start Date End Date Allen Jackson Chi [address] [place] [address] PCP - General Gerontology 07/27/24 Director Of Catering Relationship Specialty Start Date End Date Allen Jackson Chi [address] [place] [address] PCP - General Gerontology 07/27/24 Director Of Catering Relationship Specialty Start Date End Date Allen Jackson Chi [address] [place] [address] PCP - General Gerontology 07/27/24 Director Of Catering Relationship Specialty Start Date End Date Allen Jackson Chi [address] [place] [address] PCP - General Gerontology 07/27/24 Team Status: Inactive Member Role Status Dates Dr. Allen Jackson MD Primary Care Provider Active Start: June 24, 2024 End: June 24, 2024 Dr. Allen Jackson MD Attending Provider Active Start: June 24, 2024 End: June 24, 2024 Team Status: Inactive Member Role Status Dates Dr. Allen Jackson MD Primary Care Provider Active Start: August 14, 2024 End: August 14, 2024 Dr. Allen Jackson MD Attending Provider Active Start: August 14, 2024 End: August 14, 2024 Dr. Allen Jackson MD Referring Provider Active Start: August 14, 2024 End: August 14, 2024 Director Of Catering Relationship Specialty Start Date End Date Allen Jackson Chi [address] [place] [address] PCP - General Gerontology 07/27/24 Director Of Catering Relationship Specialty Start Date End Date Allen Jackson Chi [address] [place] [address] PCP - General Gerontology 07/27/24 Director Of Catering Relationship Specialty Start Date End Date Prudencio Jackson MD [address] [place] [address] PCP - General Geriatric Medicine 01/17/24 Director Of Catering Relationship Specialty Start Date End Date Allen Jackson Chi [address] [place] [address] PCP - General Gerontology 07/27/24 Team Status: Inactive Member Role Status Dates Dr. Allen Jackson MD Primary Care Provider Active Start: September 16, 2024 End: September 16, 2024 Dr. Allen Jackson MD Referring Provider Active Start: September 16, 2024 End: September 16, 2024 Dr. Apryl Mathew MD Attending Provider Active Start: September 16, 2024 End: September 16, 2024 Team Status: Inactive Member Role Status Dates Dr. Allen Jackson MD Primary Care Provider Active Start: September 17, 2024 End: September 17, 2024 Dr. Apryl Mathew MD Attending Provider Active Start: September 17, 2024 End: September 17, 2024 Dr. Apryl Mathew MD Referring Provider Active Start: September 17, 2024 End: September 17, 2024 Team Status: Inactive Member Role Status Dates Dr. Allen Jackson MD Primary Care Provider Active Start: September 22, 2024 End: September 23, 2024 Dr. Apryl Mathew MD Admit Provider Active Star t: September 22, 2024 End: September 23, 2024 Dr. Apryl Mathew MD Attending Provider Active Start: September 22, 2024 End: September 23, 2024 Dr. Apryl Mathew MD Referring Provider Active Start: September 22, 2024 End: September 23, 2024 Team Status: Active Member Role Status Dates Dr. Allen Jackson MD Primary Care Provider Active Start: September 23, 2024 Dr. Apryl Mathew MD Admit Provider Active Star t: September 23, 2024 Dr. Apryl Mathew MD Referring Provider Active Start: September 23, 2024 Dr. Apryl Mathew MD Other Provider Active Star t: September 23, 2024 Dr. Rakesh Young MD Attending Provider Active Start: September 23, 2024 Team Status: Active Member Role Status Dates Dr. Allen Jackson MD Primary Care Provider Active Start: September 22, 2024 End: September 22, 2024 Dr. Apryl Mathew MD Attending Provider Active Start: September 22, 2024 End: September 22, 2024 Dr. Apryl Mathew MD Referring Provider Active Start: September 22, 2024 End: September 22, 2024 Team Status: Inactive Member Role Status Dates Dr. Allen Jackson MD Primary Care Provider Active Start: September 23, 2024 End: September 23, 2024 Dr. Toño Fernandez MD Attending Provider Active S tart: September 23, 2024 End: September 23, 2024 Team Status: Inactive Member Role Status Dates Dr. Allen Jackson MD Primary Care Provider Active Start: September 25, 2024 End: September 25, 2024 Dr. Toño Fernandez MD Attending Provider Active S tart: September 25, 2024 End: September 25, 2024 Team Status: Inactive Member Role Status Dates Dr. Allen Jackson MD Primary Care Provider Active Start: October 05, 2024 End: October 05, 2024 Dr. Allen Jackson MD Referring Provider Active Start: October 05, 2024 End: October 05, 2024 Bola Mcadams TAPE DUPLICATOR, TAPE DUPLICATOR-C Attending Provider Active S tart: October 05, 2024 End: October 05, 2024 Director Of Catering Relationship Specialty Start Date End Date Allen Jackson Chi [address] [place], [place] [id number] PCP - General Gerontology 07/27/24 Director Of Catering Relationship Specialty Start Date End Date Allen Jackson Chi [address] [place], [place] [address] PCP - General Gerontology 07/27/24 Director Of Catering Relationship Specialty Start Date End Date Allen Jackson Chi [address] [place], [place] [id number] PCP - General Gerontology 07/27/24 Team Status: Active Member Role/Relationship Status Dates Dr. Allen Jackson MD Primary Care Provider Active Team Status: Inactive Member Role/Relationship Status Dates Dr. Allen Jackson MD Primary Care Provider Active Start: August 14, 2024 End: August 14, 2024 Dr. Allen Jackson MD Attending Provider Active Start: August 14, 2024 End: August 14, 2024 Dr. Allen Jackson MD Referring Provider Active Start: August 14, 2024 End: August 14, 2024 Team Status: Inactive Member Role/Relationship Status Dates Dr. Allen Jackson MD Primary Care Provider Active Start: September 16, 2024 End: September 16, 2024 Dr. Allen Jackson MD Referring Provider Active Start: September 16, 2024 End: September 16, 2024 Dr. Apryl Mathew MD Attending Provider Active Start: September 16, 2024 End: September 16, 2024 Team Status: Inactive Member Role/Relationship Status Dates Dr. Allen Jackson MD Primary Care Provider Active Start: September 17, 2024 End: September 17, 2024 Dr. Apryl Mathew MD Attending Provider Active Start: September 17, 2024 End: September 17, 2024 Dr. Apryl Mathew MD Referring Provider Active Start: September 17, 2024 End: September 17, 2024 Team Status: Inactive Member Role/Relationship Status Dates Dr. Allen Jackson MD Primary Care Provider Active Start: September 22, 2024 End: September 23, 2024 Dr. Apryl Mathew MD Admit Provider Active Star t: September 22, 2024 End: September 23, 2024 Dr. Apryl Mathew MD Attending Provider Active Start: September 22, 2024 End: September 23, 2024 Dr. Apryl Mathew MD Referring Provider Active Start: September 22, 2024 End: September 23, 2024 Team Status: Active Member Role/Relationship Status Dates Dr. Allen Jackson MD Primary Care Provider Active Start: September 22, 2024 End: September 22, 2024 Dr. Apryl Mathew MD Attending Provider Active Start: September 22, 2024 End: September 22, 2024 Dr. Apryl Mathew MD Referring Provider Active Start: September 22, 2024 End: September 22, 2024 Team Status: Active Member Role/Relationship Status Dates Dr. Allen Jackson MD Primary Care Provider Active Start: September 23, 2024 Dr. Apryl Mathew MD Admit Provider Active Star t: September 23, 2024 Dr. Apryl Mathew MD Referring Provider Active Start: September 23, 2024 Dr. Apryl Mathew MD Other Provider Active Star t: September 23, 2024 Dr. Rakesh Young MD Attending Provider Active Start: September 23, 2024 Team Status: Inactive Member Role/Relationship Status Dates Dr. Allen Jackson MD Primary Care Provider Active Start: September 23, 2024 End: September 23, 2024 Dr. Toño Fernandez MD Attending Provider Active S tart: September 23, 2024 End: September 23, 2024 Team Status: Inactive Member Role/Relationship Status Dates Dr. Allen Jackson MD Primary Care Provider Active Start: September 25, 2024 End: September 25, 2024 Dr. Toño Fernandez MD Attending Provider Active S tart: September 25, 2024 End: September 25, 2024 Dr. Toño Fernandez MD Referring Provider Active S tart: September 25, 2024 End: September 25, 2024 Team Status: Inactive Member Role/Relationship Status Dates Dr. Allen Jackson MD Primary Care Provider Active Start: October 05, 2024 End: October 05, 2024 Dr. Allen Jackson MD Referring Provider Active Start: October 05, 2024 End: October 05, 2024 Bola Mcadams TAPE DUPLICATOR, TAPE DUPLICATOR-C Attending Provider Active S tart: October 05, 2024 End: October 05, 2024 Team Status: Inactive Member Role/Relationship Status Dates Dr. Allen Jackson MD Primary Care Provider Active Start: November 24, 2024 End: November 24, 2024 FABIANA SIERRA Attending Provider Active Start: Ju ly 2024 End: November 24, 2024 RIGO MOUSA Referring Provider Active Start: Ju ly 2024 End: November 24, 2024 Director Of Catering Relationship Specialty Start Date End Date Allen Jackson Chi [address] [address] PCP - General Gerontology 07/27/24 Team Status: Inactive Member Role/Relationship Status Dates Dr. Allen Jackson MD Primary Care Provider Active Start: September 16, 2024 End: September 16, 2024 Dr. Allen Jackson MD Referring Provider Active Start: September 16, 2024 End: September 16, 2024 Dr. Apryl Mathew MD Attending Provider Active Start: September 16, 2024 End: September 16, 2024 Team Status: Inactive Member Role/Relationship Status Dates Dr. Allen Jackson MD Primary Care Provider Active Start: September 17, 2024 End: September 17, 2024 Dr. Apryl Mathew MD Attending Provider Active Start: September 17, 2024 End: September 17, 2024 Dr. Apryl Mathew MD Referring Provider Active Start: September 17, 2024 End: September 17, 2024 Team Status: Inactive Member Role/Relationship Status Dates Dr. Allen Jackson MD Primary Care Provider Active Start: September 22, 2024 End: September 23, 2024 Dr. Apryl Mathew MD Admit Provider Active Star t: September 22, 2024 End: September 23, 2024 Dr. Apryl Mathew MD Attending Provider Active Start: September 22, 2024 End: September 23, 2024 Dr. Apryl Mathew MD Referring Provider Active Start: September 22, 2024 End: September 23, 2024 Team Status: Active Member Role/Relationship Status Dates Dr. Allen Jackson MD Primary Care Provider Active Start: September 22, 2024 End: September 22, 2024 Dr. Apryl Mathew MD Attending Provider Active Start: September 22, 2024 End: September 22, 2024 Dr. Apryl Mathew MD Referring Provider Active Start: September 22, 2024 End: September 22, 2024 Team Status: Active Member Role/Relationship Status Dates Dr. Allen Jackson MD Primary Care Provider Active Start: September 23, 2024 Dr. Apryl Mathew MD Admit Provider Active Star t: September 23, 2024 Dr. Apryl Mathew MD Referring Provider Active Start: September 23, 2024 Dr. Apryl Mathew MD Other Provider Active Star t: September 23, 2024 Dr. Rakesh Young MD Attending Provider Active Start: September 23, 2024 Team Status: Inactive Member Role/Relationship Status Dates Dr. Allen Jackson MD Primary Care Provider Active Start: September 23, 2024 End: September 23, 2024 Dr. Toño Fernandez MD Attending Provider Active S tart: September 23, 2024 End: September 23, 2024 Team Status: Inactive Member Role/Relationship Status Dates Dr. Allen Jackson MD Primary Care Provider Active Start: September 25, 2024 End: September 25, 2024 Dr. Toño Fernandez MD Attending Provider Active S tart: September 25, 2024 End: September 25, 2024 Dr. Toño Fernandez MD Referring Provider Active S tart: September 25, 2024 End: September 25, 2024 Team Status: Inactive Member Role/Relationship Status Dates Dr. Allen Jackson MD Primary Care Provider Active Start: October 05, 2024 End: October 05, 2024 Dr. Allen Jackson MD Referring Provider Active Start: October 05, 2024 End: October 05, 2024 Bola Mcadams NP, TAPE DUPLICATOR-C Attending Provider Active S tart: October 05, 2024 End: October 05, 2024 Team Status: Inactive Member Role/Relationship Status Dates Dr. Allen Jackson MD Primary Care Provider Active Start: November 24, 2024 End: November 24, 2024 RIGO, MOUSA Attending Provider Active Start: 2024 End: November 24, 2024 RIGO, MOUSA Referring Provider Active Start: 2024 End: November 24, 2024 Team Status: Active Member Role/Relationship Status Dates Dr. Allen Jackson MD Primary Care Provider Active Start: December 14, 2024 RIGO, MOUSA Attending Provider Active Start: 2024 RIGO, MOUSA Referring Provider Active Start: 2024 Team Status: Inactive Member Role/Relationship Status Dates Dr. Allen Jackson MD Primary Care Provider Active Start: December 30, 2024 End: December 30, 2024 Dr. Allen Jackson MD Referring Provider Active Start: December 30, 2024 End: December 30, 2024 Bola Mcadams NP, TAPE DUPLICATOR-C Attending Provider Active S tart: December 30, 2024 End: December 30, 2024 Team Status: Inactive Member Role/Relationship Status Dates Dr. Allen Jackson MD Primary Care Provider Active Start: December 25, 2024 End: December 25, 2024 Dr. Toño Fernandez MD Attending Provider Active S tart: December 25, 2024 End: December 25, 2024 Team Status: Inactive Member Role/Relationship Status Dates Dr. Allen Jackson MD Primary Care Provider Active Start: December 30, 2024 End: December 30, 2024 Dr. Allen Jackson MD Referring Provider Active Start: December 30, 2024 End: December 30, 2024 Bola Mcadams NP, TAPE DUPLICATOR-C Attending Provider Active S tart: December 30, 2024 End: December 30, 2024 Goals (unrecognized section and content) Goals may be documented in a n alternate sectionGoals may be documented in an alternate sectionGoals may be documented in an alternate section Reason for Visit (unrecogniz ed section and content) Reason Comments Bradycardia Pt presents from ED via EMS from [facility] for a junctional bradycardia in the low 30s. Pt was at [facility] when he got SOB and dizzy. He went to the pharmacy to have his blood pressure taken. Per pt daughter, BP was low. Pt brought to ER in [place]. Pt was hypotensive. Given 0.5 atropine. Per EMS pt HR went into the 50-60s. Pt is A&Ox4. GCS 15. Denies CP/SOB. Reason Onset Date Comments Patient Education 01/21/2024 Reason Comments Pain (foot) left foot pain and s welling with bruising x 3 days, twisted and fell Reason Comments Left ankle fracture Referred by Benjamin Stovall Specialty Diagnoses / Procedures Referred By Nury t Referred To Contact Orthopedics Diagnoses Closed fracture of distal end of left fibula, unspecified fracture morphology, initial encounter Procedures CONSULT PANEL TO ORTHOPAEDICS OFFICE/OUTPATIENT [facility] 60 MINUTES Mere Brunner APRN.[employer] [address] [place] [address] Phone: tel: fax: Referral ID Status Reason Start Date Expiration Date V isits Requested Visits Authorized [id number] Closed PCP Requested Referral 07/27/2024 07/27/2025 1 1 Reason Comments 2 weeks 4 days post fracture Left distal fibula Reason Comments New Reason Comments Preparations For Surgery Reason Comments Post Op Established Patient Follow Up Pain Reason Comments Post Op Reason Comments Post Op Pt states that at ti mes he has pain and throbbing Established Patient Pt states that at ti mes he has pain and throbbing Pain Pt states that at ti mes he has pain and throbbing Reason Comments Established Patient Follow Up Post Op Pain Reason Comments Established Patient Follow Up Pain Post Op Reason Comments Established Patient Follow Up Reason Comments Established Patient Pain Scheduled Active and Recently Administ ered Medications (unrecognized section and content) Medication Order 01/18/2024 01/19/2024 01/20/2024 atorvastatin (Lipitor) tablet 20 mg 20 mg, Oral, Daily, First dose on 01/18/24 at 0900 0903 (Given - Provider: [place] Hua RN) 1136 (Given - Provider: Elena Saavedra RN) 0909 (Given - Provider: Diamond Hernandez RN) B complex-vitamin C-folic acid (Nephrocaps) capsule 1 capsule 1 capsule, Oral, Daily, First dose on 01/18/24 at 0900 0905 (Given - Provider: [place] Hua RN) 1137 (Given - Provider: Elena Saavedra RN) 0911 (Given - Provider: Diamond Hernandez, DANIELLE) calcitriol (Rocaltrol) capsule 0.5 mcg 0.5 mcg, Oral, Daily, First dose on Sat01/18/24 at 0900, On hold since Sat01/17/2024 at 2314 until manually unheld 0900 (Dose Auto Held - Provider: Jennifer Pizarro DO) 0900 (Dose Auto Held - Provider: Jennifer Pizarro DO) 0900 (Dose Auto Held - Provider: Jennifer Pizarro DO)1631 (Unheld by provider - Provider: Automatic Discharge Provider) cholecalciferol (Vitamin D-3) tablet 1,000 Units 1,000 Units, Oral, Daily, First dose on Sat01/20/24 at 0900 0909 (Given - Provider: Diamond Hernandez, DANIELLE) dianeal low Ca/D1.5% peritoneal dialysate IntraPERitoneal, Every 6 hours, First dose on 01/19/24 at 1630, Dialysis, For Peritoneal Dialysis: Bag 1 PD script entails 5 exchanges using 2 L dwells (half 1.5% & half 2.5% dextrose bags) over 8.5 hours, Continuous (CAPD) or Cyclic (CCPD)? Cyclic (CCPD), Therapy time (hours): Other (specify), Explanatory comment: 8 hours 30 minutes, Exchange frequency: Q2H, Exchange volume (L): 2 L, Alternate solutions? No, Number of exchanges daily: 5 1956 (Given - Provider: Rakesh Jenkins RN - Comment: pd nightly)2230 (Canceled Entry - Provider: Automatic Discharge Provider - Comment: Automatically canceled at discontinue of medication order) 0430 (Canceled Entry - Provider: Automatic Discharge Provider - Comment: Automatically canceled at discontinue of medication order)1030 (Canceled Entry - Provider: Automatic Discharge Provider - Comment: Automatically canceled at discontinue of medication order)1630 (Canceled Entry - Provider: Automatic Discharge Provider - Comment: Automatically canceled at discontinue of medication order) dianeal low Ca/D2.5% (UltraBAG) peritoneal dialysate IntraPERitoneal, Every 6 hours, First dose on 01/19/24 at 1630, Dialysis, For Peritoneal Dialysis: Bag 2 PD script entails 5 exchanges using 2 L dwells (half 1.5% & half 2.5% dextrose bags) over 8.5 hours, Continuous (CAPD) or Cyclic (CCPD)? Cyclic (CCPD), Therapy time (hours): Other (specify), Explanatory comment: 8 hours 30 minutes, Exchange frequency: Q2H, Exchange volume (L): 2 L, Alternate solutions? No, Number of exchanges daily: 5 1955 (Given - Provider: Rakesh Jenkins RN - Comment: pd at night)2230 (Canceled Entry - Provider: Automatic Discharge Provider - Comment: Automatically canceled at discontinue of medication order) 0430 (Canceled Entry - Provider: Automatic Discharge Provider - Comment: Automatically canceled at discontinue of medication order)1030 (Canceled Entry - Provider: Automatic Discharge Provider - Comment: Automatically canceled at discontinue of medication order)1630 (Canceled Entry - Provider: Automatic Discharge Provider - Comment: Automatically canceled at discontinue of medication order) docusate sodium (Colace) capsule 100 mg 100 mg, Oral, 2 times daily, First dose (after last modification) on 01/18/24 at 0900, Do not crush or break. Hold for >1 bowel movement per day 0903 (Given - Provider: [place] Hua RN)2100 (Not Given - Provider: Destinee Pinzon RN - Reason: Order parameters not met - Comment: pt reports at least 3 bowel movements today) 1136 (Not Given - Provider: Elena Saavedra RN - Reason: Order parameters not met)2100 (Not Given - Provider: Destinee Pinzon RN - Reason: Order parameters not met) 0909 (Given - Provider: Diamond Hernandez RN) ferrous sulfate tablet 325 mg 325 mg, Oral, 2 times daily with meals, First dose on 01/18/24 at 0800 0903 (Given - Provider: [place] Hua RN)1700 (Not Given - Provider: [place] Hua RN - Reason: Patient/family refused) 0800 (Not Given - Provider: Elena Saavedra RN - Reason: NPO)1634 (Given - Provider: Elena Saavedra RN) 0909 (Given - Provider: Diamond Hernandez RN) gentamicin (Garamycin) 0.1 % cream Topical, Daily, First dose on 01/19/24 at 1630, Dialysis, Apply to Line Site. 2006 (Given - Provider: Rakesh Jenkins RN - Comment: before pd) heparin injection 5,000 Units 5,000 Units, SubCUTAneous, Every 12 hours scheduled (2 times per day), First dose on 01/18/24 at 0900, On hold since 01/18/2024 at 1600 until manually unheld 09 (Given - Provider: [place] Hua RN)1600 (Held by provider - Provider: Briana Lynn MD - Reason: Other - Comment: EP procedure 01/19/[address] Charles)2100 (Dose Auto Held - Provider: Briana Lynn MD) 0900 (Dose Auto Held - Provider: Briana Lynn MD)2100 (Dose Auto Held - Provider: Briana Lynn MD) 0900 (Dose Auto Held - Provider: Briana Lynn MD)1631 (Unheld by provider - Provider: Automatic Discharge Provider) insulin glargine (Lantus) injection 30 Units 30 Units, SubCUTAneous, Every morning, First dose on 01/18/24 at 0900 0900 (Given - Provider: [place] Hua RN) 0900 (Not Given - Provider: Elena Saavedra RN - Reason: NPO) 0909 (Given - Provider: Diamond Hernandez RN) Insulin Lispro (Humalog) injection 0-6 Units 0-6 Units, SubCUTAneous, 3 times daily with meals, First dose on 01/18/24 at 0800, Low Dose Correction Algorithm Glucose: Dose: LESS than 139 No Insulin 140-199 1 Unit 200-249 2 Units 250-299 3 Units 300-349 4 Units 350-400 5 Units Above 400 6 Units 0800 (Not Given - Provider: [place] Hua RN - Reason: Order parameters not met - Comment: glucose 111)1200 (Not Given - Provider: [place] Hua RN - Reason: Order parameters not met - Comment: glucose 133)1700 (Not Given - Provider: [place] Hua RN - Reason: Order parameters not met - Comment: glucose 135) 0800 (Not Given - Provider: Elena Saavedra RN - Reason: Order parameters not met)1200 (Not Given - Provider: Elena Saavedra RN - Reason: Order parameters not met)1700 (Not Given - Provider: Elena Saavedra RN - Reason: Order parameters not met - Comment: 136) 0800 (Not Given - Provider: Diamond Hernandez RN - Reason: Order parameters not met)1231 (Given - Provider: Colette Coreas, DANIELLE) lactulose (Chronulac) 10 GM/15ML solution 20 g 20 g, Oral, 2 times daily, First dose (after last modification) on 01/18/24 at 0900, Hold for >1 bowel movement per day 0900 (Given - Provider: [place] Hua RN)2100 (Not Given - Provider: Destinee Pinzon RN - Reason: Order parameters not met - Comment: pt reports at least BM today) 0900 (Not Given - Provider: Elena Saavedra RN - Reason: Order parameters not met)2100 (Not Given - Provider: Destinee Pinzon RN - Reason: Order parameters not met) 0900 (Not Given - Provider: Diamond Hernandez RN - Reason: Patient/family refused) pantoprazole (ProtoNix) EC tablet 40 mg 40 mg, Oral, Daily before breakfast, First dose on 01/18/24 at 0600, Do not crush, chew, or split. 0559 (Given - Provider: Diamond Lovett RN) 0603 (Given - Provider: Destinee Pinzon RN) 0547 (Given - Provider: Destinee Pinzon RN) sevelamer carbonate (Renvela) tablet 3,200 mg 3,200 mg, Oral, 3 times daily with meals, First dose (after last modification) on 01/19/24 at 1700, Do not crush, chew, or split. 1634 (Given - Provider: Elena Saavedra RN) 0909 (Given - Provider: Diamond Hernandez RN)1231 (Given - Provider: Colette Coreas, DANIELLE) sevelamer carbonate (Renvela) tablet 800 mg (CANCELED) 800 mg, Oral, 3 times daily with meals, First dose on Sat01/18/24 at 0800, Do not crush, chew, or split. 0800 (Dose Auto Held - Provider: Jennifer Pizarro DO)1200 (Dose Auto Held - Provider: Jennifer Pizarro DO)1442 (Unheld by provider - Provider: Jany Awan DO)1700 (Not Given - Provider: [place] Hua RN - Reason: Patient/family refused) 0800 (Not Given - Provider: Elena Saavedra RN - Reason: NPO)1136 (Given - Provider: Elena Saavedra, DANIELLE) sodium chloride 0.9 % bolus 500 mL (COMPLETED) 500 mL, IntraVENous, at 250 mL/hr, Administer over 2 Hours, Once, On Sat01/17/24 at 2320, For 1 dose 0009 (New Bag - Provider: Casi Hoang RN)0209 (Stopped - Provider: Diamond Lovett RN - Comment: No fluids infusing upon transfer to floor) vancomycin (Vancocin) 1,000 mg in sodium chloride 0.9 % 250 mL IVPB (COMPLETED) 1,000 mg, IntraVENous, at 166.7 mL/hr, Administer over 90 Minutes, Once, On Sat01/19/24 at 0745, For 1 dose, ADD-Ebony bag, Suspected Indication (Select all that apply): Surgical Prophylaxis 0853 (New Bag - Provider: Sana Belcher RN)1023 (Stopped - Provider: Elena Saavedra RN) PRN Medication Order 01/18/2024 01/19/2024 01/20/2024 acetaminophen (Tylenol) suppository 650 mg(Linked Group 1) 650 mg, Rectal, Every 6 hours PRN, mild pain (1-3), fever, For temp greater than 100.4 F (38 C), Starting on Sat01/17/24 at 2258, Administer if oral route cannot be used. Maximum dose of acetaminophen is 4000 mg from all sources in 24 hours. acetaminophen (Tylenol) tablet 650 mg(Linked Group 1) 650 mg, Oral, Every 6 hours PRN, mild pain (1-3), fever, For temp greater than 100.4 F (38 C), Starting on Sat01/17/24 at 2258, Maximum dose of acetaminophen is 4000 mg from all sources in 24 hours. acetaminophen (Tylenol) tablet 650 mg 650 mg, Oral, Every 4 hours PRN, mild pain (1-3), Fever > 100.5 F (38 C), Starting on Sat01/19/24 at 0959, Recovery & On Unit, Maximum dose of acetaminophen is 4000 mg from all sources in 24 hours. 1136 (Given - Provider: Elena Saavedra RN)1634 (Given - Provider: Elena Saavedra, DANIELLE)2115 (Given - Provider: Destinee Pinzon, DANIELLE) 0547 (Given - Provider: Destinee Pinzon RN) bupivacaine PF (Marcaine) 0.5 % injection (CANCELED) As needed, Starting on Sat01/19/24 at 0907, Intraprocedure 0907 (Given - Provider: Giancarlo Charles MD) dextrose 5 % infusion 100 mL/hr, IntraVENous, PRN, Blood sugar less than 70mg/dL, Starting on Sat01/17/24 at 2258, Start infusion following administration of dextrose 50% or glucagon. dextrose 50 % solution 12.5 g 12.5 g, IntraVENous, PRN, low blood sugar, Blood glucose less than 70 mg/dL and patient NOT ALERT or NPO., Starting on Sat01/17/24 at 2258, If patient does not respond within 5 minutes, repeat dose x1. Start D5W at 100 mL/hour until ordering provider can be reached. Repeat blood glucose in 15 minutes. If blood glucose is less than 70 mg/dL, repeat treatment and recheck blood glucose in 15 minutes x2. If using Glucostabilizer, dose as instructed per system. fentaNYL (Sublimaze) injection (CANCELED) IntraVENous, As needed, Starting on Sat01/19/24 at 0852, Intraprocedure 0852 (Given - Provider: Sana Belcher RN)0909 (Given - Provider: Sana Belcher RN) gentamicin (Garamycin) 80 mg in sodium chloride 0.9 % 100 mL irrigation (CANCELED) Irrigation, As needed, Starting on Sat01/19/24 at 0946, Intraprocedure 0946 (Given - Provider: Giancarlo Charles MD) glucagon (human recombinant) injection 1 mg 1 mg, IntraMUSCular, PRN, low blood sugar, Blood glucose less than 70 mg/dL and patient NOT ALERT or NPO and does not have IV access., Starting on Sat01/17/24 at 2258, After administration, attempt intravenous access and start D5W at 100 mL/hr. Repeat blood glucose in 15 minutes x2 and notify provider. glucose oral gel 15 g 15 g, Oral, As needed, low blood sugar, Starting on Sat01/17/24 at 2258, If blood glucose less than 50 mg/dL and patient ALERT and NOT NPO, give 2 tubes glucose gel. If blood glucose less than 70 mg/dL and patient ALERT and NOT NPO, give 1 tube glucose gel. Repeat blood glucose in 15 minutes. If blood glucose is less than 70 mg/dL, repeat treatment and recheck blood glucose in 15 minutes x2 and notify provider. lidocaine (Xylocaine) 2 % injection (CANCELED) Infiltration, As needed, Starting on Sat01/19/24 at 0907, Intraprocedure 0907 (Given - Provider: Giancarlo Charles MD) midazolam (Versed) injection (CANCELED) IntraVENous, As needed, Starting on Sat01/19/24 at 0852, Intraprocedure 0852 (Given - Provider: Sana Belcher, DANIELLE)0909 (Given - Provider: Sana Belcher, DANIELLE) ondansetron (Zofran) injection 4 mg(Linked Group 2) 4 mg, IntraVENous, Every 6 hours PRN, nausea, vomiting, Starting on Sat01/17/24 at 2258, 1st Line. Give IV if patient is unable to take orally. If inadequate response within 60 minutes, proceed to next-line agent or contact provider if no further options ordered. ondansetron ODT (Zofran-ODT) disintegrating tablet 4 mg(Linked Group 2) 4 mg, Oral, Every 8 hours PRN, nausea, vomiting, Starting on Sat01/17/24 at 2258, 1st Line. If inadequate response within 60 minutes, proceed to next-line agent or contact provider if no further options ordered. Patient should allow tablet to dissolve on tongue. Do not remove from blister pack until just before administering. polyethylene glycol (PEG) 3350 (Miralax) packet 17 g 17 g, Oral, Daily PRN, constipation, Starting on Sat01/17/24 at 2258, 1st line for treatment of constipation - give scheduled if no bowel movement in past 24 hours. Linked Groups Order Group 1: acetaminophen (Tylenol) tablet 650 mgJump to med 650 mg, Oral, Every 6 hours PRN, mild pain (1-3), fever, For temp greater than 100.4 F (38 C), Starting on Sat01/17/24 at 2258, Maximum dose of acetaminophen is 4000 mg from all sources in 24 hours. Or acetaminophen (Tylenol) suppository 650 mgJump to med 650 mg, Rectal, Every 6 hours PRN, mild pain (1-3), fever, For temp greater than 100.4 F (38 C), Starting on Sat01/17/24 at 2258, Administer if oral route cannot be used. Maximum dose of acetaminophen is 4000 mg from all sources in 24 hours. Group 2: ondansetron ODT (Zofran-ODT) disintegrating tablet 4 mgJump to med 4 mg, Oral, Every 8 hours PRN, nausea, vomiting, Starting on Sat01/17/24 at 2258, 1st Line. If inadequate response within 60 minutes, proceed to next-line agent or contact provider if no further options ordered. Patient should allow tablet to dissolve on tongue. Do not remove from blister pack until just before administering. Or ondansetron (Zofran) injection 4 mgJump to med 4 mg, IntraVENous, Every 6 hours PRN, nausea, vomiting, Starting on Sat01/17/24 at 2258, 1st Line. Give IV if patient is unable to take orally. If inadequate response within 60 minutes, proceed to next-line agent or contact provider if no further options ordered. Source Comments (unrecognize d section and content) In the event this informatio n is protected by the Federal Confidentiality of Alcohol and Drug Abuse Patient Records regulations: The Federal rules restrict any use of the information to criminally investigate or prosecute any alcohol or drug abuse patient.[facility] the event this information is protected by the Federal Confidentiality of Alcohol and Drug Abuse Patient Records regulations: The Federal rules restrict any use of the information to criminally investigate or prosecute any alcohol or drug abuse patient.[facility] the event this information is protected by the Federal Confidentiality of Alcohol and Drug Abuse Patient Records regulations: The Federal rules restrict any use of the information to criminally investigate or prosecute any alcohol or drug abuse patient.[facility] the event this information is protected by the Federal Confidentiality of Alcohol and Drug Abuse Patient Records regulations: The Federal rules restrict any use of the information to criminally investigate or prosecute any alcohol or drug abuse patient.[facility] the event this information is protected by the Federal Confidentiality of Alcohol and Drug Abuse Patient Records regulations: The Federal rules restrict any use of the information to criminally investigate or prosecute any alcohol or drug abuse patient.[facility] the event this information is protected by the Federal Confidentiality of Alcohol and Drug Abuse Patient Records regulations: The Federal rules restrict any use of the information to criminally investigate or prosecute any alcohol or drug abuse patient.[facility] the event this information is protected by the Federal Confidentiality of Alcohol and Drug Abuse Patient Records regulations: The Federal rules restrict any use of the information to criminally investigate or prosecute any alcohol or drug abuse patient.[facility] the event this information is protected by the Federal Confidentiality of Alcohol and Drug Abuse Patient Records regulations: The Federal rules restrict any use of the information to criminally investigate or prosecute any alcohol or drug abuse patient.[facility] the event this information is protected by the Federal Confidentiality of Alcohol and Drug Abuse Patient Records regulations: The Federal rules restrict any use of the information to criminally investigate or prosecute any alcohol or drug abuse patient.[facility] the event this information is protected by the Federal Confidentiality of Alcohol and Drug Abuse Patient Records regulations: The Federal rules restrict any use of the information to criminally investigate or prosecute any alcohol or drug abuse patient.[facility] the event this information is protected by the Federal Confidentiality of Alcohol and Drug Abuse Patient Records regulations: The Federal rules restrict any use of the information to criminally investigate or prosecute any alcohol or drug abuse patient.[facility] Hospital[facility] the event this information is protected by the Federal Confidentiality of Alcohol and Drug Abuse Patient Records regulations: The Federal rules restrict any use of the information to criminally investigate or prosecute any alcohol or drug abuse patient.[facility] Hospital[facility] the event this information is protected by the Federal Confidentiality of Alcohol and Drug Abuse Patient Records regulations: The Federal rules restrict any use of the information to criminally investigate or prosecute any alcohol or drug abuse patient.[facility] the event this information is protected by the Federal Confidentiality of Alcohol and Drug Abuse Patient Records regulations: The Federal rules restrict any use of the information to criminally investigate or prosecute any alcohol or drug abuse patient.[facility] the event this information is protected by the Federal Confidentiality of Alcohol and Drug Abuse Patient Records regulations: The Federal rules restrict any use of the information to criminally investigate or prosecute any alcohol or drug abuse patient.[facility] the event this information is protected by the Federal Confidentiality of Alcohol and Drug Abuse Patient Records regulations: The Federal rules restrict any use of the information to criminally investigate or prosecute any alcohol or drug abuse patient.[facility] Hospital[facility] the event this information is protected by the Federal Confidentiality of Alcohol and Drug Abuse Patient Records regulations: The Federal rules restrict any use of the information to criminally investigate or prosecute any alcohol or drug abuse patient.[facility] (unrecognized sect ion and content) No Status Records FoundNo Status Records FoundNo Status Records FoundNo Status Records Found INFORMATION SOURCE (unrecogn ized section and content) DATE CREATED AUTHOR 08/16/2024 [facility] DATE CREATED AUTHOR AUTHOR'S ORGANIZ ATION 09/22/2024 [facility] DATE CREATED AUTHOR AUTHOR'S ORGANIZ ATION 03/21/2025 [facility] DATE CREATED AUTHOR AUTHOR'S ORGANIZ ATION 03/26/2025 [facility] FOR RECORDS PERTAINING TO PATIENTS WHO ARE OR HAVE BEEN ENROLLED IN A CHEMICAL DEPENDENCY/SUBSTANCEABUSE PROGRAM, SOME INFORMATION MAY BE OMITTED. This clinical summary was aggregated from multiple sources. Caution should be exercised in using it in the provision of clinical care. This summary normalizes information from multiple sources, and as a consequence, information in this document may materially change the coding, format and clinical context of patient data. In addition, data may be omitted in some cases. CLINICAL DECISIONS SHOULD BE BASED ON THE PRIMARY CLINICAL RECORDS. [facility] provides no warranty or guarantee of the accuracy or completeness of information in this document.
== END 2025-03-31 23:59 | disposition home or self-care (01) ==
LOC: MEDOUTP 14:23
PROVIDERS: PCP Family Medicine Geriatric Medicine; Referring Provider Family Medicine Geriatric Medicine; Visit Provider Family Medicine Geriatric Medicine
DX: A53.9 Syphilis, unspecified (principal)
CPT/HCPCS: 96372

== ENCOUNTER 2025-04-07 12:05 | Outpatient (CLI) | payer BC, SELFPAY ==
[2025-04-07 12:26] VITALS: BP 148/67; PULSE 74; RESP 16; TEMP 36; O2SAT 100; BMI 24.1
[2025-04-07] MEDS: Penicillin G Benzathine 2.4 MU/4 ML Syringe IM (12:28)
== END 2025-04-07 23:59 | disposition home or self-care (01) ==
LOC: MEDOUTP 12:06
PROVIDERS: PCP Family Medicine Geriatric Medicine; Referring Provider Family Medicine Geriatric Medicine; Visit Provider Family Medicine Geriatric Medicine
DX: A53.9 Syphilis, unspecified (principal)
CPT/HCPCS: 96372